=== PATIENT | female | born 1960 | race Two or more races ===

== ENCOUNTER 2019-12-27 13:17 | Outpatient (REF) | payer MEDICAID, SELFPAY ==
[2019-12-30 03:31] LABS: HPV mRNA E6/E7 rflx Not Detected (Not Detected)
== END 2019-12-27 13:18 | disposition home or self-care (01) ==
LOC: HO.LAB 13:17
PROVIDERS: Visit Provider Obstetrics & Gynecology
DX: N95.0 Postmenopausal bleeding (principal)
CPT/HCPCS: 87624; 87625; 88142; 99212

== ENCOUNTER 2020-01-08 13:47 | Outpatient (REF) | payer MEDICAID, SELFPAY ==
--- NOTE | 2020-01-08 13:51 | US_ITS ---
EXAMINATION: PELVIC ULTRASOUND CLINICAL INFORMATION: Postmenopausal bleeding COMPARISON: None TECHNIQUE: Transabdominal and transvaginal pelvic ultrasound was performed. Transvaginal exam was performed for better visualization of the uterus and ovaries. FINDINGS: The uterus is retroverted and measures 9.6 x 4.2 x 4.9 cm in dimension. Uterine echotexture is heterogeneous with multiple hyperechoic areas questionable for calcifications. There is a 1.4 x 1.3 x 1.8 cm hypoechoic lesion in the posterior uterine body suggestive of a fibroid. This abuts the endometrium. Endometrial thickness is normal measuring 0.4 cm. The ovaries are normal-appearing. The right ovary measures 2.3 x 1.8 x 1.3 cm and the left ovary measures 2.8 x 2.1 x 1.1 cm. There is no fluid in the pelvis. US/US transvaginal IMPRESSION: Heterogeneous uterus with small uterine fibroid that abuts the endometrium. The endometrium is normal in thickness. The ovaries are normal.
--- NOTE | 2020-01-08 13:51 | US_ITS ---
EXAMINATION: PELVIC ULTRASOUND CLINICAL INFORMATION: Postmenopausal bleeding COMPARISON: None TECHNIQUE: Transabdominal and transvaginal pelvic ultrasound was performed. Transvaginal exam was performed for better visualization of the uterus and ovaries. FINDINGS: The uterus is retroverted and measures 9.6 x 4.2 x 4.9 cm in dimension. Uterine echotexture is heterogeneous with multiple hyperechoic areas questionable for calcifications. There is a 1.4 x 1.3 x 1.8 cm hypoechoic lesion in the posterior uterine body suggestive of a fibroid. This abuts the endometrium. Endometrial thickness is normal measuring 0.4 cm. The ovaries are normal-appearing. The right ovary measures 2.3 x 1.8 x 1.3 cm and the left ovary measures 2.8 x 2.1 x 1.1 cm. There is no fluid in the pelvis. US/US pelvic complete IMPRESSION: Heterogeneous uterus with small uterine fibroid that abuts the endometrium. The endometrium is normal in thickness. The ovaries are normal.
== END 2020-01-08 13:48 | disposition home or self-care (01) ==
LOC: HO.US 13:47
PROVIDERS: PCP Family Medicine; Visit Provider Obstetrics & Gynecology
DX: N95.0 Postmenopausal bleeding (principal)
CPT/HCPCS: 76830; 76856

== ENCOUNTER 2020-01-10 10:48 | Outpatient (REF) | payer MEDICAID, SELFPAY ==
--- NOTE | 2020-01-10 | MM_ITS ---
EXAMINATION: MM SCREENING DIGITAL BREAST TOMOSYNTHESIS, BILATERAL CLINICAL INFORMATION: Screening. Asymptomatic. The lifetime risk of breast cancer based on the Tyrer-Cuzick Model is 6%. COMPARISON: Mammography: 05/12/2018, 05/11/2017, 05/01/2016 TECHNIQUE: Digital breast tomosynthesis is performed in both the craniocaudal and mediolateral oblique views along with computer-aided detection (CAD). Synthesized 2D images are generated from the tomosynthesis. Additional right MLO view is provided. FINDINGS: There are scattered areas of fibroglandular density (ACR BI-RADS breast composition Category b). There are no significant masses, abnormal calcifications, or other abnormalities. There is no developing density. Fine digital processing artifact present left axilla on MLO view. MM/MM tomosynthesis screening BI IMPRESSION: No mammographic evidence of malignancy. ASSESSMENT: BI-RADS 2: Benign RECOMMENDATION: Routine annual mammography screening. This patient's information was entered into a reminder system with a target due date for their next mammogram.
== END 2020-01-10 10:49 | disposition home or self-care (01) ==
LOC: HO.MAMMO 10:48
PROVIDERS: PCP Family Medicine; Visit Provider Family Medicine
DX: Z12.31 Encounter for screening mammogram for malignant neoplasm of breast (principal)
CPT/HCPCS: 77063; 77067

== ENCOUNTER → 2020-03-13 11:43 | Outpatient (BNVA) | payer MEDICAID, SELFPAY | PROVIDERS: Visit Provider Obstetrics & Gynecology ==

== ENCOUNTER → 2020-03-20 12:00 | Outpatient (BNVA) | payer MEDICAID, SELFPAY | PROVIDERS: PCP Family Medicine; Visit Provider Obstetrics & Gynecology | DX: Z76.89 Persons encountering health services in other specified circumstances (principal) ==

== ENCOUNTER → 2020-03-27 15:24 | Outpatient (BNVA) | payer MEDICAID, SELFPAY | PROVIDERS: Visit Provider Nurse Practitioner ==

== ENCOUNTER 2020-04-11 15:24 | Outpatient (REF) | payer MEDICAID, SELFPAY ==
[2020-04-11 17:27] LABS: CDIFF Ag Negative (Negative); CDiff Toxin Negative (Negative)
[2020-04-11 17:28] LABS: CDIFF Internal ctrl Dots and bkg OK (V)
== END 2020-04-11 15:25 | disposition home or self-care (01) ==
LOC: HO.LNP 15:24
PROVIDERS: Visit Provider Nurse Practitioner
DX: R19.7 Diarrhea, unspecified (principal); R11.2 Nausea with vomiting, unspecified
CPT/HCPCS: 87045; 87046; 87324; 87338; 87449

== ENCOUNTER 2020-04-15 10:39 | Outpatient (REF) | payer MEDICAID, SELFPAY ==
--- NOTE | ~2020-04-15 | US_ITS ---
EXAMINATION: US ABDOMEN COMPLETE CLINICAL INFORMATION: Upper abdominal pain, unspecified. COMPARISON: Renal ultrasound 04/27/2006. TECHNIQUE: Real-time imaging of the abdominal viscera. FINDINGS: PANCREAS: Normal. ABDOMINAL AORTA: Limited visualization of the mid aorta. The visualized aorta, including the well-seen proximal and distal abdominal aorta, is normal in caliber. INFERIOR VENA CAVA: Visualized portions are normal. LIVER: Normal. The liver is normal in size. The liver contour is normal. Parenchymal echogenicity is normal. No focal hepatic lesion. There is no intrahepatic biliary duct dilatation seen. GALLBLADDER: Along the dependent wall of the gallbladder there is a nonmobile 3 mm echogenic focus most consistent with a tiny polyp. Gallbladder wall normal in thickness, 2 mm. No gallbladder wall thickening or pericholecystic fluid. No reported sonographic Nguyen's sign. COMMON BILE DUCT: Normal in caliber measuring 0.5 cm in diameter. RIGHT KIDNEY: Normal. No hydronephrosis. No renal calculi or focal parenchymal lesions. The kidney measures 11.2 cm in maximum dimension. LEFT KIDNEY: Normal. No hydronephrosis. No renal calculi or focal parenchymal lesions. The kidney measures 11.5 cm in maximum dimension. SPLEEN: Normal. The spleen measures 9.7 cm in maximum dimension. FREE FLUID: None. US/US abdomen complete IMPRESSION: 3 mm gallbladder wall polyp. There are differing management algorithms advocated for in the radiology literature for small gallbladder wall polyps of this size. Some suggest annual ultrasound follow-up while others suggest no follow-up is needed. Normal appearance of liver. No biliary ductal dilatation.
[2020-04-15 11:54] LABS: MANUAL DIFF FLAG NO
[2020-04-15 11:59] LABS: Basophils Percent Auto 0.6 % (0-2); Eosinophils Absolute Auto 0.1 X10*3/uL (0.0-0.4); Eosinophils Percent Auto 2.5 % (0-4); Hematocrit 40.4 % (37-47); Hemoglobin 13.2 g/dl (12.0-16.0); Imm Gran Abs Auto 0.01 X10*3/uL (0.00-0.03); Imm Gran Pct Auto 0.2 % (0.0-0.4); Lymphocytes Absolute Auto 1.5 X10*3/uL (1.2-4.9); Lymphocytes Percent Auto 31.4 % (20-40); Mean Corpuscular HGB Conc 32.7 g/dl (31.0-35.0); Mean Corpuscular Hemoglobin 27.9 pg (27.0-33.0); Mean Corpuscular Volume 85.4 fL (80-98); Mean Platelet Volume 9.4 fL (9.4-12.3); Monocytes Absolute Auto 0.3 X10*3/uL (0.1-1.2); Monocytes Percent Auto 6.5 % (2-11); Neutrophils Absolute Auto 2.8 X10*3/uL (2.0-8.3); Neutrophils Percent Auto 58.8 % (45-73); Platelet Count 233 X10*3/uL (160-400); Red Blood Count 4.73 X10*6/uL (4.20-5.50); Red Cell Distribution Width 12.8 % (11.0-16.0); White Blood Count 4.8 X10*3/uL (4.8-10.8)
[2020-04-15 14:00] LABS: Alanine Aminotransferase 12 U/L (0-31); Albumin Level 4.1 g/dL (3.5-5.0); Alkaline Phosphatase 86 U/L (39-117); Anion Gap 11 (12-20); Aspartate Amino Transferase 14 U/L (5-31); Bilirubin Total 0.3 mg/dL (0.0-1.0); Blood Urea Nitrogen 19 mg/dL (9-16); C Reactive Protein 0.48 mg/dL (< or = 0.50); Calcium 9.4 mg/dL (8.4-10.2); Carbon Dioxide 34 mmol/L (22-29); Chloride 100 mmol/L (96-108); Estimated Glomerular Filt Rate > 60; Potassium 4.3 mmol/L (3.3-5.1); Sodium 141 mmol/L (135-145); Total Protein 7.5 g/dL (6.5-8.0)
[2020-04-15 14:30] LABS: Glucose Random 57 mg/dL (60-115)
== END 2020-04-15 10:40 | disposition home or self-care (01) ==
LOC: HO.HMGCX 10:39
PROVIDERS: Visit Provider Nurse Practitioner
DX: R10.10 Upper abdominal pain, unspecified (principal); R11.2 Nausea with vomiting, unspecified; R19.7 Diarrhea, unspecified
CPT/HCPCS: 36415; 76700; 80053; 85025; 86140

== ENCOUNTER → 2020-04-23 09:59 | Outpatient (BNVA) | payer MEDICAID, SELFPAY | PROVIDERS: PCP Family Medicine; Visit Provider Nurse Practitioner Gerontology | DX: E11.65 Type 2 diabetes mellitus with hyperglycemia (principal); E11.649 Type 2 diabetes mellitus with hypoglycemia without coma; Z79.4 Long term (current) use of insulin; I10 Essential (primary) hypertension | CPT/HCPCS: 82947; 99212 ==

== ENCOUNTER → 2020-05-07 09:22 | Outpatient (BNVA) | payer MEDICAID, SELFPAY | PROVIDERS: PCP Family Medicine; Visit Provider Internal Medicine Endocrinology, Diabetes & Metabolism | DX: E11.65 Type 2 diabetes mellitus with hyperglycemia (principal); E11.42 Type 2 diabetes mellitus with diabetic polyneuropathy; E11.649 Type 2 diabetes mellitus with hypoglycemia without coma; E11.3299 Type 2 diabetes mellitus with mild nonproliferative diabetic retinopathy without macular edema, unspecified eye; Z79.4 Long term (current) use of insulin; I10 Essential (primary) hypertension; E78.5 Hyperlipidemia, unspecified; E66.9 Obesity, unspecified | CPT/HCPCS: 82947; 99212 ==

== ENCOUNTER → 2020-06-25 09:38 | Outpatient (BNVA) | payer MEDICAID, SELFPAY | PROVIDERS: PCP Family Medicine; Visit Provider Nurse Practitioner ==

== ENCOUNTER → 2020-07-12 14:48 | Outpatient (BNVA) | payer MEDICAID, SELFPAY | PROVIDERS: Visit Provider Nurse Practitioner ==

== ENCOUNTER → 2020-08-07 11:57 | Outpatient (BNVA) | payer MEDICAID, SELFPAY | PROVIDERS: PCP Family Medicine; Visit Provider Internal Medicine Endocrinology, Diabetes & Metabolism | DX: E11.65 Type 2 diabetes mellitus with hyperglycemia (principal); E11.42 Type 2 diabetes mellitus with diabetic polyneuropathy; E11.649 Type 2 diabetes mellitus with hypoglycemia without coma; E11.3299 Type 2 diabetes mellitus with mild nonproliferative diabetic retinopathy without macular edema, unspecified eye; I10 Essential (primary) hypertension; E66.9 Obesity, unspecified; E78.5 Hyperlipidemia, unspecified; Z79.4 Long term (current) use of insulin | CPT/HCPCS: 82947; 99212 ==

== ENCOUNTER 2020-08-15 09:39 | Day surgery (SDC) | payer MEDICAID, SELFPAY ==
[2020-08-08 13:30] VITALS: BMI 35.3
--- NOTE | 2020-08-14 08:56 | P.CONAN_ITS ---
Documented by User: Geneva Amparo 08/14/20 08:58 HPI - Anesthesia Eval Consult details Narrative: 60yo F for Colonoscopy PMFSH Active Problems Active Problems: All Active Problems (Updated 08/08/20 @ 13:26 by Bev Pineda) Postmenopausal bleeding (Acute) Gastroparesis (Acute) GERD (gastroesophageal reflux disease) (Acute) Irritable bowel syndrome with both constipation and diarrhea (Acute) Diarrhea (Acute) Nausea and vomiting (Acute) Upper abdominal pain (Acute) Gastritis (Acute) Colon cancer screening (Acute) Diabetic neuropathy associated with type 2 diabetes mellitus (Acute) Background diabetic retinopathy associated with type 2 diabetes mellitus (Acute) Dyslipidemia (Acute) Type 2 diabetes mellitus with mild nonproliferative diabetic retinopathy without macular edema, bilateral (Acute) Type 2 diabetes mellitus with hyperglycemia, with long-term current use of insulin (Acute) [facility] current use of insulin (Acute) Essential hypertension (Acute) Obesity with body mass index of 30.0-39.9 (Acute) Hypoglycemia associated with type 2 diabetes mellitus (Acute) Diabetes type 2, uncontrolled (Acute) Past Medical History Medical History (Updated 08/15/20 @ 11:22 by Nidhi Poon) Allergic rhinitis Anemia Asthma Background diabetic retinopathy associated with type 2 diabetes mellitus Constipation COVID-19 vaccine administered Depression Diabetes type 2, uncontrolled Diabetic neuropathy associated with type 2 diabetes mellitus Dyslipidemia Essential hypertension Heart murmur Hemorrhoids HTN (hypertension) Hypoglycemia associated with type 2 diabetes mellitus FCI current use of insulin Menometrorrhagia Obesity Obesity with body mass index of 30.0-39.9 PATRICIA (obstructive sleep apnea) Polypharmacy Type 2 diabetes mellitus with hyperglycemia, with long-term current use of insulin Type 2 diabetes mellitus with mild nonproliferative diabetic retinopathy without macular edema, bilateral Venous insufficiency Family History Family History Father No problems noted. Mother Heart disease HTN (hypertension) Diabetes Pacemaker Depression Family/Other Diabetes Surgical History Surgical History History of bilateral tubal ligation History of esophagogastroduodenoscopy (EGD) Hx of colonoscopy Social History Social History Household Members: None Are you a primary nurse healthcare manager to a significant other at home: No Do you presently have visiting nurse or other home services: No Alcohol intake: never Patient Tobacco Use Status: Never used Tobacco Use of substances other than those prescribed or required for medical reasons: No Have you been hit, kicked, punched, or otherwise hurt by someone within the past year? If so, by whom?: No Are you DNR?: No Advance Directives: No Advance Directives Information Provided: No Advance Directives on File: No Recently lost weight without trying: No Eating poorly because of decreased appetite: No Nutrition Risks: No Nutritional Risk Sexual orientation: Straight/Heterosexual Gender identity: female Meds Allergies Allergy/AdvReac Type Severity Reaction Status Date / Time pioglitazone [From Actos] Allergy Mild EDEMA, Verified 07/12/20 14:48 unknown Home Medications Medication Instructions Recorded Confirmed Last Taken Type furosemide 20 mg tablet 10 mg PO QAM 12/27/19 08/08/20 Unknown History hydrocortisone acetate 25 mg 25 mg UT BEDTIME 12/27/19 08/07/20 Unknown History rectal suppository tramadol 100 mg tablet 100 mg PO DAILY PRN 12/27/19 08/08/20 Unknown History aspirin 81 mg tablet,delayed 81 mg PO QPM tab 04/23/20 08/08/20 Unknown History release buspirone 30 mg tablet 30 mg PO QAM AND QHS tab 04/23/20 08/08/20 Unknown History cilostazol 50 mg tablet 50 mg PO BID tab 04/23/20 08/08/20 Unknown History ferrous sulfate 325 mg (65 mg 325 mg PO QAM tab 04/23/20 08/08/20 Unknown History iron) tablet lisinopril 20 2 tab PO DAILY tab 04/23/20 08/08/20 Unknown History mg-hydrochlorothiazide 12.5 mg tablet lorazepam 0.5 mg tablet See Rx Instructions PO BID PRN 04/23/20 08/08/20 Unknown History metoprolol tartrate 50 mg tablet 50 mg PO BID 04/23/20 08/08/20 Unknown History venlafaxine 150 mg 150 mg PO QAM 04/23/20 08/08/20 Unknown History capsule,extended release 24 hr zolpidem 10 mg tablet 10 mg PO BEDTIME PRN 04/23/20 08/08/20 Unknown History Exam Exam Date and Time: August 14, 2020 0856 Height,Weight and Vital Signs: Height 5 ft Weight 82 kg Pertinent Lab Results Pertinent Lab Results: Laboratory Tests 04/15/20 04/15/20 11:47 11:47 WBC 4.8 Hgb 13.2 Hct 40.4 Plt Count 233 Sodium 141 Potassium 4.3 Chloride 100 Carbon Dioxide 34 H BUN 19 H Creatinine 0.77 Assessment and Plan Assessment Anesthesia Assessment: Chart Reviewed Documented by User: Nidhi Poon 08/15/20 11:24 [facility] Past Medical History Medical History (Updated 08/15/20 @ 11:22 by Nidhi Poon) Allergic rhinitis Anemia Asthma Background diabetic retinopathy associated with type 2 diabetes mellitus Constipation COVID-19 vaccine administered Depression Diabetes type 2, uncontrolled Diabetic neuropathy associated with type 2 diabetes mellitus Dyslipidemia Essential hypertension Heart murmur Hemorrhoids HTN (hypertension) Hypoglycemia associated with type 2 diabetes mellitus 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 Mother Heart disease HTN (hypertension) Diabetes Pacemaker Depression Family/Other Diabetes Family history of problems with anesthesia: Yes (Mother's heart condition worsened by anesthesia) Surgical History Surgical History History of bilateral tubal ligation History of esophagogastroduodenoscopy (EGD) Hx of colonoscopy History of Problems with Anesthesia: No Social History Social History Household Members: None Are you a primary nurse healthcare manager to a significant other at home: No Do you presently have visiting nurse or other home services: No Alcohol intake: never Patient Tobacco Use Status: Never used Tobacco Use of substances other than those prescribed or required for medical reasons: No Have you been hit, kicked, punched, or otherwise hurt by someone within the past year? If so, by whom?: No Are you DNR?: No Advance Directives: No Advance Directives Information Provided: No Advance Directives on File: No Recently lost weight without trying: No Eating poorly because of decreased appetite: No Nutrition Risks: No Nutritional Risk Sexual orientation: Straight/Heterosexual Gender identity: female Meds Allergies Allergy/AdvReac Type Severity Reaction Status Date / Time pioglitazone [From Actos] Allergy Mild EDEMA, Verified 07/12/20 14:48 unknown Home Medications Medication Instructions Recorded Confirmed Last Taken Type furosemide 20 mg tablet 10 mg PO QAM 12/27/19 08/08/20 Unknown History hydrocortisone acetate 25 mg 25 mg UT BEDTIME 12/27/19 08/07/20 Unknown History rectal suppository tramadol 100 mg tablet 100 mg PO DAILY PRN 12/27/19 08/08/20 Unknown History aspirin 81 mg tablet,delayed 81 mg PO QPM tab 04/23/20 08/08/20 Unknown History release buspirone 30 mg tablet 30 mg PO QAM AND QHS tab 04/23/20 08/08/20 Unknown History cilostazol 50 mg tablet 50 mg PO BID tab 04/23/20 08/08/20 Unknown History ferrous sulfate 325 mg (65 mg 325 mg PO QAM tab 04/23/20 08/08/20 Unknown History iron) tablet lisinopril 20 2 tab PO DAILY tab 04/23/20 08/08/20 Unknown History mg-hydrochlorothiazide 12.5 mg tablet lorazepam 0.5 mg tablet See Rx Instructions PO BID PRN 04/23/20 08/08/20 Unknown History metoprolol tartrate 50 mg tablet 50 mg PO BID 04/23/20 08/08/20 Unknown History venlafaxine 150 mg 150 mg PO QAM 04/23/20 08/08/20 Unknown History capsule,extended release 24 hr zolpidem 10 mg tablet 10 mg PO BEDTIME PRN 04/23/20 08/08/20 Unknown History Exam Height,Weight and Vital Signs: Vital Signs Temp Pulse Resp BP Pulse Ox 08/15/20 10:08 96.8 F 74 16 143/69 H 97 Pertinent Lab Results Pertinent Lab Results: Lab Results 08/15/20 Range/Units 09:48 POC Glucose 93 (60-115) mg/dL Airway Mallampati Class: II TM Dist: >3cm Neck ROM: Full Partial: Upper and Lower Heart: RRR Lungs: CTAB Assessment and Plan Assessment Anesthesia Assessment: Anesthesia Plan Discussed and Chart Reviewed Final Anesthetic Review NPO: Yes ASA Class: III Final Preanesthetic Review: No Changes in Pt Med Stat, Meds/Allgs Chart Reviewed, Consent Obtained/Reviewed and Anes Risks/Benef Reviewed Patient Risk: Intermediate Procedure Risk: Low Assessment/Block/Sedation in SS: Assess/Block/Sedation-SS Anesthetic Plan Anesthetic Plan: MAC: Disposition: Standard PACU
[2020-08-15 10:08] VITALS: BP 143/69; PULSE 74; RESP 16; TEMP 36; O2SAT 97
[2020-08-15 10:11] LABS: Glucose, Whole Blood 93 mg/dL (60-115)
[2020-08-15] MEDS: Lactated Ringers 1,000 ML 100 ML IVCONT (10:19)
--- NOTE | 2020-08-15 10:57 | MHC.SHP ---
Pre-Procedural Eval Section A Date of Service: 08/15/20 Section B Chief Complaint: Screening Relevant Family History (Specify if Yes): No Relevant Social History: None Present Medications: see Short Stay Collaborative assessment Medical History: Significant History (Allergic rhinitis Anemia Asthma Background diabetic retinopathy associated with type 2 diabetes mellitus Constipation COVID-19 vaccine administered Depression Diabetes type 2, uncontrolled Diabetic neuropathy associated with type 2 diabetes mellitus Dyslipidemia Essential hypertension Heart murmur H) History of Previous Operations: Relevant previous surgery/procedure and date(s) (History of bilateral tubal ligation History of esophagogastroduodenoscopy (EGD) Hx of colonoscopy) Allergies: Allergies Allergy/AdvReac Type Severity Reaction Status Date / Time pioglitazone [From Actos] Allergy Mild EDEMA, Verified 07/12/20 14:48 unknown Review of Systems Sugical H&P ROS: Negative: Constitution, Cardiovascular, Respiratory, Neurological, Psychiatric, Hem-Onc, Allergic/Immunologic, Gastrointestinal, Genitourinary, Musculoskeletal, Integumentary, Endocrine and Eyes/Ears/Nose/Throat Exam Surgical H&P Exam: Normal: HEENT, Normal: Heart, Normal: Lungs, Normal: Extremities, Normal: Abdomen, Normal: Skin and Normal: Neurological Plan Diagnosis/Plan: Unchanged I have reviewed the history and physical and performed a pertinent physical examination on my patient. No changes have occurred unless specified.
--- NOTE | 2020-08-15 11:41 | P.BOP_ITS ---
Brief Operative Note Date of Service: 08/15/20 Pre-op diagnosis: colon screen Post-op diagnosis: same Procedure: see op note Surgeon: Yamile Lim MD Anesthesia: MAC Was an Director Of [employer] used for this Procedure?: No Estimated blood loss (mL): 0 Condition: stable Disposition: PACU
--- NOTE | 2020-08-15 11:41 | W.PM.OPN ---
Operative Note Operative Note Date of Service: 08/15/20 Narrative: Operative Information Procedure Description: Colonoscopy COLONOSCOPY Instrument: Olympus variable stiffness pediatric scope 190L Colonoscopy Monitoring: Vital signs and clinical assessment, continuous EKG monitoring, Pulse oximetry, Carbon Dioxide monitoring and blood pressure monitoring were done throughout the procedure. Colon withdrawal time was 10 minutes. Procedure: The patient was placed in the left lateral decubitis position and pre-procedure medications were administered. After a digital rectal examination of the ano-rectum, the video colonoscope was inserted into the rectum and advanced through the colon to the cecum/TI. The colonoscope was slowly withdrawn in a retrograde panoramic fashion and the colon mucosa was carefully examined including a retroflexed view of the rectum. Findings and interventions are described below. Procedure Difficulty:moderate Findings: Terminal Ileum-not deeply intubated but superficially viewed and normal Cecum:normal Ascending Colon: normal Transverse Colon -normal Descending Colon:normal Sigmoid Colon: normal Rectum: Retroflexion with small internal hemorrhoids, grade 1 Anorectum - normal Colon preparation: Jeannette Bowel Preparation Scale Right colon; 2 Transverse colon: 2 Left colon; 1 (0 = Unprepared colon segment with mucosa not seen due to solid stool that cannot be cleared. 1 = Portion of mucosa of the colon segment seen, but other areas of the colon segment not well seen due to staining, residual stool and/or opaque liquid. 2 = Minor amount of residual staining, small fragments of stool and/or opaque liquid, but mucosa of colon segment seen well. 3 = Entire mucosa of colon segment seen well with no residual staining, small fragments of stool or opaque liquid) Impression and Post Procedure Diagnosis: internal hemorrhoids Plan: High fiber diet leaflet Avoid straining at stool, epsom salts and sitz bath, anusol supps or cream as needed Repeat Colonoscopy in 5 years or earlier if clinically indicated, review prep details for next time Above findings were reviewed with the patient and relevant handouts were provided if indicated.
[2020-08-15 11:45] VITALS: BP 82/44; PULSE 61; RESP 16; TEMP 36.8; O2SAT 98
[2020-08-15 12:03] VITALS: BP 92/54; PULSE 66; RESP 13; TEMP 36.8; O2SAT 97
[2020-08-15 12:11] VITALS: BP 105/58; PULSE 63; RESP 12; TEMP 36.8; O2SAT 97
== END 2020-08-15 13:12 | disposition home or self-care (01) ==
PROVIDERS: PCP Family Medicine; Visit Provider Internal Medicine Gastroenterology
PROC: 0DJD8ZZ Inspection of Lower Intestinal Tract, Via Natural or Artificial Opening Endoscopic (ICD-10-PCS; CPT 45378; principal; 2020-08-15 10:50)
DX: Z12.11 Encounter for screening for malignant neoplasm of colon (principal); K64.0 First degree hemorrhoids; K21.9 Gastro-esophageal reflux disease without esophagitis; E11.40 Type 2 diabetes mellitus with diabetic neuropathy, unspecified; E11.3293 Type 2 diabetes mellitus with mild nonproliferative diabetic retinopathy without macular edema, bilateral; E11.65 Type 2 diabetes mellitus with hyperglycemia; J45.909 Unspecified asthma, uncomplicated; I10 Essential (primary) hypertension; G47.33 Obstructive sleep apnea (adult) (pediatric); D64.9 Anemia, unspecified; Z79.4 Long term (current) use of insulin; Z79.899 Other long term (current) drug therapy
CPT/HCPCS: 45378; 82947; J2765

== ENCOUNTER → 2020-09-12 10:20 | Outpatient (BNVA) | payer MEDICAID, SELFPAY | PROVIDERS: PCP Family Medicine; Visit Provider Nurse Practitioner ==

== ENCOUNTER 2021-01-20 10:46 | Outpatient (REF) | payer MEDICAID, SELFPAY ==
--- NOTE | ~2021-01-20 | MM_ITS ---
EXAMINATION: MM SCREENING DIGITAL BREAST TOMOSYNTHESIS, BILATERAL CLINICAL INFORMATION: Screening. Asymptomatic. The lifetime risk of breast cancer based on the Tyrer-Cuzick Model is 5%. COMPARISON: Mammography: 01/10/2020, 05/12/2018, 05/11/2017 TECHNIQUE: Digital breast tomosynthesis is performed in both the craniocaudal and mediolateral oblique views along with computer-aided detection (CAD). Synthesized 2D images are generated from the tomosynthesis. Additional right exaggerated CC view obtained. FINDINGS: There are scattered areas of fibroglandular density (ACR BI-RADS breast composition Category b). There are no significant masses, abnormal calcifications, or other abnormalities. Parenchymal pattern similar to prior studies. MM/MM tomosynthesis screening BI IMPRESSION: No mammographic evidence of malignancy. ASSESSMENT: BI-RADS 1: Negative RECOMMENDATION: Routine annual mammography screening. This patient's information was entered into a reminder system with a target due date for their next mammogram.
== END 2021-01-20 10:47 | disposition home or self-care (01) ==
LOC: HO.MAMMO 10:46
PROVIDERS: PCP Family Medicine; Visit Provider Family Medicine
DX: Z12.31 Encounter for screening mammogram for malignant neoplasm of breast (principal)
CPT/HCPCS: 77063; 77067

== ENCOUNTER → 2021-06-06 12:54 | Outpatient (BNVA) | payer MEDICAID, SELFPAY | PROVIDERS: PCP Family Medicine; Visit Provider Internal Medicine Endocrinology, Diabetes & Metabolism | DX: E11.65 Type 2 diabetes mellitus with hyperglycemia (principal); E11.40 Type 2 diabetes mellitus with diabetic neuropathy, unspecified; E11.319 Type 2 diabetes mellitus with unspecified diabetic retinopathy without macular edema; E11.21 Type 2 diabetes mellitus with diabetic nephropathy; Z79.4 Long term (current) use of insulin | CPT/HCPCS: 82947; 83036; 99212 ==

== ENCOUNTER 2022-01-26 11:34 | Outpatient (REF) | payer MEDICAID, SELFPAY ==
--- NOTE | ~2022-01-26 | MM_ITS ---
EXAMINATION: MM SCREENING DIGITAL BREAST TOMOSYNTHESIS, BILATERAL CLINICAL INFORMATION: Screening. Asymptomatic. The lifetime risk of breast cancer based on the Tyrer-Cuzick Model is 5%. COMPARISON: Mammography: 01/20/2021, 01/10/2020, 05/12/2018 TECHNIQUE: Digital breast tomosynthesis is performed in both the craniocaudal and mediolateral oblique views along with computer-aided detection (CAD). Synthesized 2D images are generated from the tomosynthesis. FINDINGS: There are scattered areas of fibroglandular density (ACR BI-RADS breast composition Category b). There are no significant masses, abnormal calcifications, or other abnormalities. Parenchymal pattern is similar to prior studies. There is no developing density or architectural abnormality. The axilla and skin contours are unremarkable. No significant changes. MM/MM tomosynthesis screening BI IMPRESSION: No mammographic evidence of malignancy. ASSESSMENT: BI-RADS 1: Negative RECOMMENDATION: Routine annual mammography screening. This patient's information was entered into a reminder system with a target due date for their next mammogram.
== END 2022-01-26 11:35 | disposition home or self-care (01) ==
LOC: HO.MAMMO 11:34
PROVIDERS: PCP Family Medicine; Visit Provider Family Medicine
DX: Z12.31 Encounter for screening mammogram for malignant neoplasm of breast (principal)
CPT/HCPCS: 77063; 77067

== ENCOUNTER → 2022-02-13 10:15 | Outpatient (BNVA) | payer MEDICAID, SELFPAY | PROVIDERS: PCP Family Medicine; Visit Provider Internal Medicine Endocrinology, Diabetes & Metabolism | DX: E11.65 Type 2 diabetes mellitus with hyperglycemia (principal); E11.649 Type 2 diabetes mellitus with hypoglycemia without coma; E11.42 Type 2 diabetes mellitus with diabetic polyneuropathy; E11.21 Type 2 diabetes mellitus with diabetic nephropathy; E11.3293 Type 2 diabetes mellitus with mild nonproliferative diabetic retinopathy without macular edema, bilateral; Z79.4 Long term (current) use of insulin | CPT/HCPCS: 82947; 83036; 99212 ==

== ENCOUNTER → 2022-03-19 10:27 | Outpatient (BNVA) | payer MEDICAID, SELFPAY | PROVIDERS: PCP Family Medicine; Visit Provider Nurse Practitioner | DX: K21.9 Gastro-esophageal reflux disease without esophagitis (principal); K58.2 Mixed irritable bowel syndrome; K31.84 Gastroparesis | CPT/HCPCS: 99212 ==

== ENCOUNTER → 2022-06-11 09:52 | Outpatient (BNVA) | payer MEDICAID, SELFPAY | PROVIDERS: PCP Family Medicine; Visit Provider Nurse Practitioner | DX: K31.84 Gastroparesis (principal); K21.9 Gastro-esophageal reflux disease without esophagitis; K58.2 Mixed irritable bowel syndrome | CPT/HCPCS: 99212 ==

== ENCOUNTER → 2022-07-17 11:12 | Outpatient (BNVA) | payer MEDICAID, SELFPAY | PROVIDERS: PCP Family Medicine; Visit Provider Nurse Practitioner | DX: K31.84 Gastroparesis (principal); K21.9 Gastro-esophageal reflux disease without esophagitis; K58.2 Mixed irritable bowel syndrome; K29.70 Gastritis, unspecified, without bleeding | CPT/HCPCS: 99212 ==

== ENCOUNTER → 2022-07-28 09:10 | Outpatient (BNVA) | payer MEDICAID, SELFPAY | PROVIDERS: PCP Family Medicine; Visit Provider Registered Nurse Diabetes Educator | DX: E11.42 Type 2 diabetes mellitus with diabetic polyneuropathy (principal) | CPT/HCPCS: 99211 ==

== ENCOUNTER → 2022-08-12 13:41 | Outpatient (BNVA) | payer MEDICAID, SELFPAY | PROVIDERS: PCP Family Medicine; Visit Provider Registered Nurse Diabetes Educator | DX: E11.42 Type 2 diabetes mellitus with diabetic polyneuropathy (principal) | CPT/HCPCS: 99211 ==

== ENCOUNTER 2022-08-28 12:03 | Outpatient (AMB) | payer MEDICAID, SELFPAY ==
--- NOTE | 2022-08-28 12:13 | MHC.OFFVIS ---
Intake Vital Signs 08/28/22 12:18 Height 5 ft 1 in Weight 145 lb BMI 27.4 BP 110/55 L Blood Pressure Location Lt brachial Position Sitting Pulse 67 Intake Visit Reasons: 4 week follow up Intake Note: Patient 4 weeks follow up Patient cc: Nauseas, Vomiting, acid reflex and some dysphagia. 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 HER CIC and epi pain is better, but her vomiting is worse. The vomiting will be an hour or two after eating. But it is worse during the day and some what better at night. She seems to be vomiting all the food I ate the night before, ? and I question if she is taking the qhs reglan dose. I write out all instructions in [place] and print 2 copies for her in her family, and she will take 1 10mg reglan tid and 2 qhs. Her son is with her and tries to help, she has a dtr who lives with her but is not so helpful. She is also having worsening and severe GERD that is not well controlled on her omeprazole.? I will change her to pantoprazole. She was given senna to help move her bowels it is kind of unclear if she is taking it or not but she seems to feel that this is not a problem currently. ROV 4 weeks. .. (2) GERD (gastroesophageal reflux disease): ?Code(s): K21.9 - Gastro-esophageal reflux disease without esophagitis (3) Irritable bowel syndrome with both constipation and diarrhea: ?Code(s): K58.2 - Mixed irritable bowel syndrome (4) Gastritis: ?Code(s): K29.70 - Gastritis, unspecified, without bleeding ? ? ? Medications: New pantoprazole (Prot yenny) 40 mg? PO BID 30 d ays 60 tabs 6RF K21.9 - Gastro-eso phageal reflux dis ease without esoph agitis, K29.70 - G astritis, unspecif ied, without bleed ing ? Discontinued omeprazole ?? Disc ontinued Reason:? Doctor's Order 40 mg? PO BID 30 c aps 3RF ?Patient Instructions: Jaimee Mercere olvera metoclopramida de la siguiente manera: -1 tableta a la hora del desayuno -1 tableta a la hora del almuerzo -1 tableta en la iliana -2 comprimidos a la hora de acostarse Please stop omeprazole and start pantoprazole twice a day. . UPPER GI WITH SMALL-BOWEL FOLLOW-THROUGH Not yet scheduled TODAY'S VISIT UKRAINIAN #dtr translates per pt request She did not get the small bowel study scheduled yet, so we will cancel it. She is now taking the reglan as directed, and this has resolved her abd painand N/V. She continues on her pantoprazole in her senna as well. She is also moving he bowels well. ROV 3 mos. 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 Mother Heart disease HTN (hypertension) Diabetes Pacemaker Depression Family/Other Diabetes Social History Household Members: None Are you a primary healthcare management consultant to a significant other at home: No Do you presently have visiting nurse or other home services: No Alcohol intake: never Patient Tobacco Use Status: Never used Tobacco Sexual orientation: Straight/Heterosexual Gender identity: Female Review of Systems Const Denies fatigue, Denies fever(s), Denies night sweats, Denies poor appetite and Denies weight loss Eyes Details: glasses Reports requires corrective lenses ENT Reports Normal hearing present, Denies dental pain, Denies dysphagia, Denies hearing loss, Denies mouth pain, Denies odynophagia, Denies throat swelling, Denies tongue swelling and Reports other (Dentition adequate) Card Reports no additional complaints Resp Reports no additional complaints GI Denies abdominal pain, Denies melena, Denies bloating, Denies hematochezia, Reports constipation, Denies GI cramping, Denies dysphagia, Denies excessive flatus, Reports early satiety, Reports heartburn, Denies diarrhea, Denies nausea, Denies odynophagia, Denies vomiting and Denies hematemesis Skin/Breast Denies pruritus, Denies lesions, Denies rash and Denies jaundice Neuro Reports Normal hearing present and Denies Abnormal speech present Endo Denies fatigue Aller/Immun Denies throat swelling and Denies tongue swelling Physical Exam Vital Signs: Last Vital Signs Pulse 67 08/28/22 12:18 BP 110/55 L 08/28/22 12:18 BMI result Body Mass Index 27.4 Const General: cooperative, no acute distress, well developed and well groomed Nutritional Appearance: average body habitus and well nourished Orientation/consciousness: oriented to person, oriented to place and oriented to time Limitations: language barrier HEENT Head: Yes normocephalic and Yes atraumatic Eyes General: appearance normal, both eyes and all related structures Pupils: Equal, round and reactive pupils present Neck Neck: Yes normal visual inspection and Yes no lymphadenopathy Thyroid: Thyroid normal Resp Effort & Inspection: normal respiratory effort and able to speak in complete sentences Auscultation: clear to auscultation bilaterally Cardio Rate: regular rate Rhythm: regular rhythm Heart sounds: Normal, physiologic split S2 sound present Peripheral pulses: radial pulses present and posterior tibial pulses present GI Inspection: No distended and No Abdominal panniculus present Palpation (GI): Soft to palpation, nontender, no guarding, not rigid and No hepatosplenomegaly present Percussion: Yes normal to percussion Auscultation: normal bowel sounds Rectal Exam - Female: deferred Skin General skin exam: no rashes or lesions noted, turgor normal, skin not dry, no jaundice, No spider nevi and no striae Rashes: no rashes Nails: normal Neuro General: oriented to person, oriented to place and oriented to time Cranial nerves: Yes Equal, round and reactive pupils present and Yes Normal hearing present Speech: No Abnormal speech present Extrem General: Yes normal to inspection, No clubbing, No cyanosis and No edema Psych Appearance: grossly normal and well kempt Mental Status: mental status grossly normal Speech and movement: Normal speech and movement present Affect: normal affect Attitude: cooperative Thought process: Normal thought process present and not confabulating Thought content: Normal thought content present Insight: Limited insight present (Psych) Judgement: Limited judgement present (Psych) Assessment & Plan Assessment & Plan (1) Gastroparesis: Code(s): K31.84 - Gastroparesis Plan: UKRAINIAN #dtr translates per pt request She did not get the small bowel study scheduled yet, so we will cancel it. She is now taking the reglan as directed, and this has resolved her abd painand N/V. She continues on her pantoprazole in her senna as well. She is also moving he bowels well. ROV 3 mos. (2) GERD (gastroesophageal reflux disease): Code(s): K21.9 - Gastro-esophageal reflux disease without esophagitis (3) Irritable bowel syndrome with both constipation and diarrhea: Code(s): K58.2 - Mixed irritable bowel syndrome Coding Level of Care Code Est Pt Level 3 (13751) Diagnoses Gastroparesis K31.84 GERD (gastroesophageal reflux disease) K21.9 Irritable bowel syndrome with both constipation and diarrhea K58.2
[2022-08-28 12:18] VITALS: BP 110/55; PULSE 67; BMI 27.4
== END 2022-08-28 12:30 | disposition home or self-care (01) ==
PROVIDERS: PCP Family Medicine; Visit Provider Nurse Practitioner
DX: K31.84 Gastroparesis (principal); K21.9 Gastro-esophageal reflux disease without esophagitis; K58.2 Mixed irritable bowel syndrome
CPT/HCPCS: 99213

== ENCOUNTER → 2022-08-28 12:03 | Outpatient (BNVA) | payer MEDICAID, SELFPAY | PROVIDERS: PCP Family Medicine; Visit Provider Nurse Practitioner | DX: K29.70 Gastritis, unspecified, without bleeding (principal); K31.84 Gastroparesis; K21.9 Gastro-esophageal reflux disease without esophagitis; K58.2 Mixed irritable bowel syndrome | CPT/HCPCS: 99213 ==

== ENCOUNTER 2022-09-15 09:28 | Outpatient (REF) | payer MEDICAID, SELFPAY ==
[2022-09-15 12:03] LABS: Estimated Average Glucose 174 mg/dL; Hemoglobin A1c % 7.7 %
== END 2022-09-15 09:29 | disposition home or self-care (01) ==
LOC: HO.HHCL 09:28
PROVIDERS: Visit Provider Internal Medicine Endocrinology, Diabetes & Metabolism
DX: E11.65 Type 2 diabetes mellitus with hyperglycemia (principal)
CPT/HCPCS: 36415; 83036

== ENCOUNTER 2022-10-02 15:00 | Outpatient (AMB) | payer MEDICAID, SELFPAY ==
--- NOTE | 2022-10-02 15:35 | MHC.AMDMED ---
Intake Intake Visit Reasons: DM It Systems Administrator Required: Yes It Systems Administrator Language: Afghan Accompanied by: Daughter Allergies pioglitazone [From Actos] Allergy (Mild, Verified 08/28/22 12:13) EDEMA, unknown HPI Comprehensive Diabetes Asmnt Most Recent Diabetes Results: No Data to Display [facility] Medical History Allergic rhinitis Anemia Asthma Background diabetic retinopathy associated with type 2 diabetes mellitus Constipation COVID-19 vaccine administered Depression Diabetes type 2, uncontrolled Diabetic neuropathy associated with type 2 diabetes mellitus Dyslipidemia Essential hypertension Heart murmur Hemorrhoids HTN (hypertension) Hypoglycemia associated with type 2 diabetes mellitus 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 Mother Heart disease HTN (hypertension) Diabetes Pacemaker Depression Family/Other Diabetes Social History Household Members: None Are you a primary health care facility administrator to a significant other at home: No Do you presently have visiting nurse or other home services: No Alcohol intake: never Patient Tobacco Use Status: Never used Tobacco Sexual orientation: Straight/Heterosexual Gender identity: Female Assessment & Plan Assessment & Plan (1) Background diabetic retinopathy associated with type 2 diabetes mellitus: Code(s): E11.3299 - Type 2 diabetes mellitus with mild nonproliferative diabetic retinopathy without macular edema, unspecified eye Plan: Learning objectives: The patient was provided with verbal and written education on the following topics as outlined below. Assess patient education level/literacy/barriers Patient questions/concerns The patient met all learning objectives and was able to verbalize understanding and provide teach back of education topics discussed . The patient was provided with the opportunity to ask questions and all questions were answered. Patient is interested in obtaining Dexcom G7, however has not been seen by Dr. Grey since January 2022. And does not have scheduled appointment till December 2022. Message sent to front loader residential driver to see if we can move appointment up in order to get paperwork done for G7 which include note from provider. Patient is currently testing glucose with meter Patient tests 3-4 times daily Fasting glucose range from 187 to 223 mg/dL Pre lunch 76-125 mg/dL Pre supper 84-264 mg/dL Topics covered in today?s session included: Medications (If applicable) ? Name of medication? Dosing/administration instructions? Mechanism of action? Potential side effects? Potential adverse reaction and appropriate treatment? Review onset, peak, duration Assess for concerns re: insurance coverage, cost, barriers to compliance Insulin/Injectables (If applicable) ? Storage/care of insulin? Injection sites? Site rotation? Onset, peak, duration ? Drawing up insulin? Injecting insulin/other injectables? Sharps disposal Continuous blood glucose monitoring (if applicable) Hypoglycemia and Hyperglycemia ? Signs and symptoms? Causes? Treatment? Preventing hypoglycemia? When to seek medical attention ?Blood glucose targets and how you feel when your blood glucose is in and out of your target ranges. ?Monitoring and knowing your A1C. ?What can make blood glucose go up and down and preventing high and low blood glucose. ?Review of blood sugar targets in expected goal range and outside of expected goal range. ?Problem solving and preventing hyper/hypoglycemia. ?Sick day management of diabetes. ?Using blood sugar results in decision making process in managing diabetes. ?Patient was receptive to information provided and participated in the discussion. Asked?appropriate questions and demonstrated good understanding of the topics discussed.? ? Educational Materials: The patient was provided with the following written educational materials: Target Goal handout Patient Response to instructions: Comprehension of Instructions: Fair Readiness to make changes:? Pre contemplation How confident they feel about making changes: Fair Patient Instructions: Patient will follow-up with telehealth nurse educator in 1 month Coding Level of Care Code Est Pt Level 1 (37848) Diagnoses Background diabetic retinopathy associated with type 2 diabetes mellitus E11.3299
== END 2022-10-02 16:08 | disposition home or self-care (01) ==
PROVIDERS: PCP Family Medicine; Visit Provider Registered Nurse Diabetes Educator
DX: E11.3299 Type 2 diabetes mellitus with mild nonproliferative diabetic retinopathy without macular edema, unspecified eye (principal)

== ENCOUNTER → 2022-10-02 15:00 | Outpatient (BNVA) | payer MEDICAID, SELFPAY | PROVIDERS: PCP Family Medicine; Visit Provider Registered Nurse Diabetes Educator | DX: E11.65 Type 2 diabetes mellitus with hyperglycemia (principal); E11.649 Type 2 diabetes mellitus with hypoglycemia without coma; E11.40 Type 2 diabetes mellitus with diabetic neuropathy, unspecified; E11.3293 Type 2 diabetes mellitus with mild nonproliferative diabetic retinopathy without macular edema, bilateral; Z79.4 Long term (current) use of insulin | CPT/HCPCS: 99211 ==

== ENCOUNTER 2022-10-07 11:16 | Outpatient (REF) | payer MEDICAID, SELFPAY ==
[2022-10-07 13:39] LABS: Cholesterol 114 mg/dL; HDL Cholesterol 44 mg/dL; LDL Cholesterol Calculated 54 mg/dl; Triglycerides 82 mg/dL
[2022-10-07 13:47] LABS: Alanine Aminotransferase 19 U/L (0-31); Albumin Level 4.1 g/dL (3.5-5.0); Alkaline Phosphatase 68 U/L (39-117); Anion Gap 12 (12-20); Aspartate Amino Transferase 13 U/L (5-31); Bilirubin Total 0.4 mg/dL (0.0-1.0); Blood Urea Nitrogen 17 mg/dL (9-16); Calcium 9.9 mg/dL (8.4-10.2); Carbon Dioxide 32 mmol/L (22-29); Chloride 100 mmol/L (96-108); Estimated Glomerular Filt Rate > 60; Glucose Random 222 mg/dL (60-115); Potassium 3.7 mmol/L (3.3-5.1); Sodium 140 mmol/L (135-145); Total Protein 7.5 g/dL (6.5-8.0)
[2022-10-07 14:04] LABS: TSH reflex Free T4 1.89 uIU/mL (0.32-4.0)
[2022-10-07 14:08] LABS: Vitamin B12 501 pg/mL (200-900)
[2022-10-07 14:21] LABS: Reflex LDLD? No
[2022-10-07 15:00] LABS: Creatinine Urine 17.99 mg/dL; Microalbumin Urine < 5.0 mg/L
== END 2022-10-07 11:17 | disposition home or self-care (01) ==
LOC: HO.HHCL 11:16
PROVIDERS: Visit Provider Family Medicine
DX: E11.65 Type 2 diabetes mellitus with hyperglycemia (principal); Z79.4 Long term (current) use of insulin
CPT/HCPCS: 36415; 80053; 80061; 82043; 82607; 82746; 84443

== ENCOUNTER 2022-10-16 14:54 | Outpatient (AMB) | payer MEDICAID, SELFPAY ==
--- NOTE | 2022-10-16 15:00 | MHC.OFFVIS ---
Intake Vital Signs 10/16/22 15:01 Height 5 ft 1 in Weight 145 lb 15.136 oz BMI 27.6 BP 114/72 Blood Pressure Location Lt brachial Position Sitting Pulse 58 Pulse Source Pulse Oximeter Intake Visit Reasons: DM Intake Note: Patient presents today to follow up on Type Diabetes Mellitus. Patient receives DME supplies through: Last Diabetic Eye exam: 12/2021 Last Podiatry Visit: 08/2022 Random Glucose: 228 mg/dl HgA1C:7.7% 09/15/22 Culinary Specialist Required: Yes Culinary Specialist Language: Brewery Technician Name: [facility] Medical staff Information Interpreted: non-clinical & clinical Accompanied by: Daughter Allergies pioglitazone [From Actos] Allergy (Mild, Verified 10/16/22 15:07) EDEMA, unknown HPI HPI Comments History of Present Illness Details 62 -year-old female today for fup visit, for diabetes management . Dexcom download shows she is using the sensor 86% of the time. Average glucose is 197. Standard deviation is 80. 45% range with 27% hyperglycemia 26% very hyperglycemic and 2% hypoglycemia. Pattern shows declining blood sugars overnight with hypoglycemia primarily occurring around noon She is on Tresiba 75 units in the morning, Humalog 15 units before each meal Ozempic 2 mg weekly not taking for a mo ,metformin XR 1000 mg twice a day, jardiance 25 mg daily. She admits that sometimes she forgets to use the bolus before the meals. She had self increase the insulin doses . She does have hypoglycemia 2 X wk - happens when pt doesn't eat She has past medical history of depression, osteoarthritis, hyperlipidemia, obesity, hypertension. She has diabetes mellitus type 2 for 30 years. She has neuropathy, diabetic retinopathy, diabetic nephropathy , no macrovascular disease. she last saw ophthalmology in 12/2021 She has nocturia 4 times + polydipsia, polyuria, blurred vision. She has numbness, tingling. Laboratory Tests 07/26/19 08/01/19 08/01/19 09:58 11:00 11:00 Hgb Hct Sodium Potassium BUN Creatinine Glucose (Clinic) Random Glucose Hgb A1c Fingerstic k 7.4 Hgb A1c (Clinic) Calcium AST ALT Albumin Triglycerides 96 Cholesterol 130 LDL Cholesterol Di rect LDL Cholesterol, C alc 69 HDL Cholesterol 42 D Ur Random Microalb umin < 5.0 Microalb/Creat Rat io TNP 0604/15/20 04/15/20 11:00 11:47 11:47 Hgb 13.2 Hct 40.4 Sodium 141 Potassium 4.3 BUN 19 H Creatinine 0.77 Glucose (Clinic) Random Glucose 57 L* Hgb A1c Fingerstic k Hgb A1c (Clinic) Calcium 9.4 AST 14 ALT 12 Albumin 4.1 Triglycerides Cholesterol LDL Cholesterol Di rect 61 LDL Cholesterol, C alc HDL Cholesterol Ur Random Microalb umin Microalb/Creat Rat io 04/23/20 04/23/20 10:12 10:23 Hgb Hct Sodium Potassium BUN Creatinine Glucose (Clinic) 269 H Random Glucose Hgb A1c Fingerstic k Hgb A1c (Clinic) 8.2 H Calcium AST ALT Albumin Triglycerides Cholesterol LDL Cholesterol Di rect LDL Cholesterol, C alc HDL Cholesterol Ur Random Microalb umin Microalb/Creat Rat io [facility] Medical History Allergic rhinitis Anemia Asthma Background diabetic retinopathy associated with type 2 diabetes mellitus Constipation COVID-19 vaccine administered Depression Diabetes type 2, uncontrolled Diabetic neuropathy associated with type 2 diabetes mellitus Dyslipidemia Essential hypertension Heart murmur Hemorrhoids HTN (hypertension) Hypoglycemia associated with type 2 diabetes mellitus 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 Mother Heart disease HTN (hypertension) Diabetes Pacemaker Depression Family/Other Diabetes Social History Household Members: None Are you a primary animal care giver to a significant other at home: No Do you presently have visiting nurse or other home services: No Alcohol intake: never Patient Tobacco Use Status: Never used Tobacco Sexual orientation: Straight/Heterosexual Gender identity: Female Physical Exam Vital Signs: Last Vital Signs Pulse 58 10/16/22 15:01 BP 114/72 10/16/22 15:01 BMI result Body Mass Index 27.6 Absence of Cushingoid features. Absence of acromegalic features. Neck exam reveals nl size thyroid about 15 gms. No thyroid nodules palpable. No carotid bruits present. Lungs CTA. Heart S1 S2, Reg R/R. No M/R/ G. Skin exam reveals absence of vitiligo or acanthosis nigricans. Abdominal exam reveals Soft NT/ND with NA BS. No organomegaly present. Neck Other: . Extrem Other: Visual exam of foot performed. No ulcerations or open lesions. No onchomycosis, no callouses.Pulses 2 + distally Sensation intact to monofilament exam. 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 There is also sporadic hypoglycemia during the day. There is significant psychosocial issues interfering with good glycemic control including noncompliance with insulin and meds as well as sporadic meal intake The plan is to decrease the Humalog at breakfast to 12 units and restart Ozempic 2 mg q.week. Patient was told to follow-up with the dial screw assembler Medications: Refilled semaglutide (Ozempic) 2 mg (0.75 mL) subcut QWEEK 3 mL 4RF Coding Level of Care Code Est Pt Level 4 (51632) Diagnoses Type 2 diabetes mellitus with hyperglycemia, with long-term current use of insulin E11.65; Z79.4
[2022-10-16 15:01] VITALS: BP 114/72; PULSE 58; BMI 27.6
[2022-10-16 15:18] LABS: Glucose, Whole Blood 228 mg/dL (60-115)
== END 2022-10-16 15:39 | disposition home or self-care (01) ==
PROVIDERS: PCP Family Medicine; Visit Provider Internal Medicine Endocrinology, Diabetes & Metabolism
DX: E11.65 Type 2 diabetes mellitus with hyperglycemia (principal); Z79.4 Long term (current) use of insulin
CPT/HCPCS: 99214

== ENCOUNTER → 2022-10-16 14:54 | Outpatient (BNVA) | payer MEDICAID, SELFPAY | PROVIDERS: PCP Family Medicine; Visit Provider Internal Medicine Endocrinology, Diabetes & Metabolism | DX: E11.65 Type 2 diabetes mellitus with hyperglycemia (principal); E11.649 Type 2 diabetes mellitus with hypoglycemia without coma; E11.40 Type 2 diabetes mellitus with diabetic neuropathy, unspecified; E11.21 Type 2 diabetes mellitus with diabetic nephropathy; E11.3293 Type 2 diabetes mellitus with mild nonproliferative diabetic retinopathy without macular edema, bilateral; Z79.4 Long term (current) use of insulin; Z79.85 Long-term (current) use of injectable non-insulin antidiabetic drugs | CPT/HCPCS: 82947; 99212 ==

== ENCOUNTER 2022-11-03 11:28 | Outpatient (AMB) | payer MEDICAID, SELFPAY ==
--- NOTE | 2022-11-03 11:47 | A.OFFVIS_ITS ---
Intake Intake Visit Reasons: DM Shipping Clerk/Admin Required: Yes Shipping Clerk/Admin Name: Faroese Pt's Daughter Information Interpreted: non-clinical & clinical Allergies pioglitazone [From Actos] Allergy (Mild, Verified 10/16/22 15:07) EDEMA, unknown HPI Comprehensive Diabetes Asmnt Most Recent Diabetes Results: Microalb/Creat Ratio TNP 10/07/22 Cholesterol 114 mg/dL 10/07/22 HDL Cholesterol 44 mg/dL 10/07/22 Triglycerides 82 mg/dL 10/07/22 Creatinine 0.87 mg/dL (0.5-1.4) 10/07/22 Blood Urea Nitrogen 17 mg/dL (9-16) H 10/07/22 Sodium 140 mmol/L (135-145) 10/07/22 Potassium 3.7 mmol/L (3.3-5.1) 10/07/22 Chloride 100 mmol/L (96-108) 10/07/22 Carbon Dioxide 32 mmol/L (22-29) H 10/07/22 Calcium 9.9 mg/dL (8.4-10.2) 10/07/22 AST 13 U/L (5-31) 10/07/22 ALT 19 U/L (0-31) 10/07/22 Total Protein 7.5 g/dL (6.5-8.0) 10/07/22 Albumin 4.1 g/dL (3.5-5.0) 10/07/22 [facility] Medical History Allergic rhinitis Anemia Asthma Background diabetic retinopathy associated with type 2 diabetes mellitus Constipation COVID-19 vaccine administered Depression Diabetes type 2, uncontrolled Diabetic neuropathy associated with type 2 diabetes mellitus Dyslipidemia Essential hypertension Heart murmur Hemorrhoids HTN (hypertension) Hypoglycemia associated with type 2 diabetes mellitus 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 Mother Heart disease HTN (hypertension) Diabetes Pacemaker Depression Family/Other Diabetes Social History Household Members: None Are you a primary home health aide caregiver to a significant other at home: No Do you presently have visiting nurse or other home services: No Alcohol intake: never Patient Tobacco Use Status: Never used Tobacco Sexual orientation: Straight/Heterosexual Gender identity: Female Assessment & Plan Assessment & Plan (1) Type 2 diabetes mellitus with mild nonproliferative diabetic retinopathy without macular edema, bilateral: Code(s): E11.3293 - Type 2 diabetes mellitus with mild nonproliferative diabetic retinopathy without macular edema, bilateral Plan: Personal Continuous Glucose Monitor: Patient saw Dr. Grey on 10/16/2022, patient has restarted Ozempic 2 mg weekly, patient has also never received CGM supplies Patient's daughter inserted new Dexcom G7 sensor on left arm, patient left visit with sensor in warmup Patients CGM information reviewed Reviewed patient's sensor data: Hypoglycemia: ? 0% Hyperglycemia:? 58% Time in Range:? 42 per Average glucose for the last 2 weeks 205? mg/dL Patient is experiencing overnight hyperglycemia. No changes made to patient's medications at this visit, patient will follow-up with certified breastfeeding educator in 1 month at that time we will re-evaluate overnight hyperglycemia, after patient has had 6 weeks of Ozempic 2 mg Reviewed how to interpret trend arrows Reminded patient that to check finger sticks if symptoms do not match sensor reading. Discussed lag time between finger stick and sensor data.? Patient's daughter able to insert sensor independently at home without issue.? Patient Instructions: Instrucciones para el paciente: CGM proporciona informaci?n sobre el control de la glucosa en willem a lo augustin del d?a, incluidas la hiperglucemia y la hipoglucemia. Contin?e controlando la glucosa en willem seg?n las instrucciones. Siga las pautas de nutrici?n proporcionadas. Informe cualquier molestia de inmediato al proveedor de atenci?n m?dica. Mantente judd hidratado. Puede ba?arse, ducharse, nadar y hacer ejercicio mientras usa el sensor de glucosa. No sumerja el sensor de glucosa en agua sascha m?s de 30 minutos. Retire el sensor para lam resonancia magn?mervin o lam tomograf?a computarizada. Evite la m?quina de zaheer X en los aeropuertos: retire el sensor o solicite la varita Coding Level of Care Code Est Pt Level 1 (51485) Diagnoses Type 2 diabetes mellitus with mild nonproliferative diabetic retinopathy without macular edema, bilateral E11.3293
== END 2022-11-03 12:55 | disposition home or self-care (01) ==
PROVIDERS: PCP Family Medicine; Visit Provider Registered Nurse Diabetes Educator
DX: E11.3293 Type 2 diabetes mellitus with mild nonproliferative diabetic retinopathy without macular edema, bilateral (principal)

== ENCOUNTER → 2022-11-03 11:28 | Outpatient (BNVA) | payer MEDICAID, SELFPAY | PROVIDERS: PCP Family Medicine; Visit Provider Registered Nurse Diabetes Educator | DX: E11.3293 Type 2 diabetes mellitus with mild nonproliferative diabetic retinopathy without macular edema, bilateral (principal) | CPT/HCPCS: 99211 ==

== ENCOUNTER 2022-12-01 11:28 | Outpatient (AMB) | payer MEDICAID, SELFPAY ==
--- NOTE | 2022-12-01 11:34 | MHC.OFFVIS ---
Intake Vital Signs 12/01/22 11:36 Height 5 ft 1 in Weight 141 lb 1.533 oz BMI 26.7 BP 86/56 L Blood Pressure Location Lt brachial Position Sitting Pulse 64 Intake Visit Reasons: 3 month follow up Intake Note: Jaimee presents in the office as a 3 month follow up. CC: She keeps losing weight and she states that she is eating but she will vomit her food up sometimes. Sometimes she will not want to eat if she gains weight. 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 She is now taking the reglan as directed, and this has resolved her abd pain and N/V. She continues on her pantoprazole in her senna as well. She is also moving he bowels well. ROV 3 mos. (2) GERD (gastroesophageal reflux disease): Code(s): K21.9 - Gastro-esophageal reflux disease without esophagitis (3) Irritable bowel syndrome with both constipation and diarrhea: Code(s): K58.2 - Mixed irritable bowel syndrome TODAY'S VISIT [employer] [place] [employer] #dtr translates per pt request She has only vomited 2 times since I last saw her. This is a great improvement from her prior presentation. She was eating [place] [employer] when it happened. It will start with the pain in the mid-epigastric to gastric area and then suddenly all the food will come up. She cannot identify any change in her eating habits or medications that proceeded this. We discussed the fact that if she vomit she should try to keep track of which she is eating and avoid the food that seems to set off. She continues on her pantoprazole twice a day. She is on Ozempic and she is currently losing weight and I explained that this is likely related to the medication and her primary doctor or the prescriber should be monitoring her to decide when to cut back the dose. She will continue the reglan 10mg qidachs as she feels satisfied with her GI regimen. ROV 6 mos. 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 Mother Heart disease HTN (hypertension) Diabetes Pacemaker Depression Family/Other Diabetes Social History Household Members: None Are you a primary child adolescent care to a significant other at home: No Do you presently have visiting nurse or other home services: No Alcohol intake: never Patient Tobacco Use Status: Never used Tobacco Sexual orientation: Straight/Heterosexual Gender identity: Female Review of Systems Const Denies fatigue, Denies fever(s), Denies night sweats, Denies poor appetite and Denies weight loss ENT Reports Normal hearing present, Denies dental pain, Denies dysphagia, Denies hearing loss, Denies mouth pain, Denies odynophagia, Denies throat swelling, Denies tongue swelling and Reports other (Dentition adequate) Card Reports no additional complaints Resp Reports no additional complaints GI Denies abdominal pain, Denies melena, Denies bloating, Denies hematochezia, Reports constipation, Denies GI cramping, Denies dysphagia, Denies excessive flatus, Denies early satiety, Reports heartburn, Denies diarrhea, Denies nausea, Denies odynophagia, Denies vomiting and Denies hematemesis Skin/Breast Denies pruritus, Denies lesions, Denies rash and Denies jaundice Neuro Reports Normal hearing present and Denies Abnormal speech present Endo Denies fatigue Aller/Immun Denies throat swelling and Denies tongue swelling Physical Exam Vital Signs: Last Vital Signs Pulse 64 12/01/22 11:36 BP 86/56 L 12/01/22 11:36 BMI result Body Mass Index 26.7 Const General: cooperative, no acute distress, well developed and well groomed Nutritional Appearance: well nourished and overweight Orientation/consciousness: oriented to person, oriented to place and oriented to time Limitations: language barrier and ambulation with cane HEENT Head: Yes normocephalic and Yes atraumatic Eyes General: appearance normal, both eyes and all related structures Pupils: Equal, round and reactive pupils present Neck Neck: Yes normal visual inspection and Yes no lymphadenopathy Thyroid: Thyroid normal Resp Effort & Inspection: normal respiratory effort and able to speak in complete sentences Auscultation: clear to auscultation bilaterally Cardio Rate: regular rate Rhythm: regular rhythm Heart sounds: Normal, physiologic split S2 sound present Peripheral pulses: radial pulses present and posterior tibial pulses present GI Inspection: No distended, No Abdominal panniculus present and Yes obesity Palpation (GI): Soft to palpation, nontender, no guarding, not rigid and No hepatosplenomegaly present Percussion: Yes normal to percussion Auscultation: normal bowel sounds Rectal Exam - Female: deferred Skin General skin exam: no rashes or lesions noted, turgor normal, skin not dry, no jaundice, No spider nevi and no striae Rashes: no rashes Nails: normal Neuro General: oriented to person, oriented to place and oriented to time Cranial nerves: Yes Equal, round and reactive pupils present and Yes Normal hearing present Speech: No Abnormal speech present Extrem General: Yes normal to inspection, No clubbing, No cyanosis and No edema Psych Appearance: grossly normal and well kempt Mental Status: mental status grossly normal Speech and movement: Normal speech and movement present Affect: normal affect Attitude: cooperative Thought process: Normal thought process present and not confabulating Thought content: Normal thought content present Insight: Limited insight present (Psych) Judgement: Limited judgement present (Psych) Assessment & Plan Assessment & Plan (1) Gastroparesis: Code(s): K31.84 - Gastroparesis Plan: [employer] [place] [employer] #dtr translates per pt request She has only vomited 2 times since I last saw her. This is a great improvement from her prior presentation. She was eating [place] [employer] when it happened. It will start with the pain in the mid-epigastric to gastric area and then suddenly all the food will come up. She cannot identify any change in her eating habits or medications that proceeded this. We discussed the fact that if she vomit she should try to keep track of which she is eating and avoid the food that seems to set off. She continues on her pantoprazole twice a day. She is on Ozempic and she is currently losing weight and I explained that this is likely related to the medication and her primary doctor or the prescriber should be monitoring her to decide when to cut back the dose. She will continue the reglan 10mg qidachs as she feels satisfied with her GI regimen. ROV 6 mos. (2) GERD (gastroesophageal reflux disease): Code(s): K21.9 - Gastro-esophageal reflux disease without esophagitis (3) Irritable bowel syndrome with both constipation and diarrhea: Code(s): K58.2 - Mixed irritable bowel syndrome Medications: Refilled pantoprazole (Protonix) 40 mg PO BID 30 days 60 tabs 6RF K21.9 - Gastro-esophageal reflux disease without esophagitis, K29.70 - Gastritis, unspecified, without bleeding metoclopramide HCl 10 mg PO QIDACHS 120 tabs 6RF K31.84 - Gastroparesis sennosides (senna) 17.2 mg (2 x 8.6 mg) PO BEDTIME PRN 180 tabs 0RF for constipation sucralfate (Carafate) 20 mL PO DAILY 420 mL 3RF K29.70 - Gastritis, unspecified, without bleeding, R11.2 - Nausea with vomiting, unspecified Coding Level of Care Code Est Pt Level 4 (98920) Diagnoses Gastroparesis K31.84 GERD (gastroesophageal reflux disease) K21.9 Irritable bowel syndrome with both constipation and diarrhea K58.2
[2022-12-01 11:36] VITALS: BP 86/56; PULSE 64; BMI 26.7
== END 2022-12-01 12:19 | disposition home or self-care (01) ==
PROVIDERS: PCP Family Medicine; Visit Provider Nurse Practitioner
DX: K31.84 Gastroparesis (principal); K21.9 Gastro-esophageal reflux disease without esophagitis; K58.2 Mixed irritable bowel syndrome
CPT/HCPCS: 99214

== ENCOUNTER → 2022-12-01 11:28 | Outpatient (BNVA) | payer MEDICAID, SELFPAY | PROVIDERS: PCP Family Medicine; Visit Provider Nurse Practitioner | DX: K31.84 Gastroparesis (principal); K21.9 Gastro-esophageal reflux disease without esophagitis; K58.2 Mixed irritable bowel syndrome; Z79.899 Other long term (current) drug therapy | CPT/HCPCS: 99212 ==

== ENCOUNTER 2023-03-01 10:38 | Emergency (ER) | payer MEDICAID, SELFPAY ==
[2023-03-01 11:22] VITALS: BP 129/63; PULSE 69; RESP 19; TEMP 36.2; O2SAT 97; BMI 26.5
--- NOTE | 2023-03-01 11:24 | ED.GENADULT ---
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 Patient states that she has a tooth in her right upper mouth that she knows needs a root canal on that side but the pain has been worse over the last 3 days. Patient denies any dizziness, lightheadedness, abdominal pain, nausea, vomiting, fever, chills, blurry vision, double vision, loss of vision, chest pain, difficulty breathing, shortness of breath, back pain, night sweats, pain with urination, increased urinary frequency, increased urinary urgency, blood in her urine or stool, syncope or a near syncopal episode, recent trauma or falls, bowel incontinence, bladder incontinence, bowel retention, bladder retention, or any other complaints at this time. Onset (ago): day(s) (3) Location: mouth and right Severity: mild Severity scale (1-10): 2 Quality: aching and dull Pain Consistency: constant Relieving factors: none Exacerbating factors: none Associated symptoms: denies other symptoms Treatments prior to arrival: none Related Data Home Medications Medication Instructions Recorded Confirmed furosemide 20 mg tablet (Lasix) 10 mg PO QAM 12/27/19 02/13/22 aspirin 81 mg tablet,delayed 81 mg PO QPM 04/23/20 02/13/22 release buspirone 30 mg tablet 30 mg PO QAM AND QHS 04/23/20 02/13/22 cilostazol 50 mg tablet 50 mg PO BID 04/23/20 02/13/22 ferrous sulfate 325 mg (65 mg 325 mg PO QAM 04/23/20 02/13/22 iron) tablet (Iron (ferrous sulfate)) lisinopril 20 2 tab PO DAILY 04/23/20 02/13/22 mg-hydrochlorothiazide 12.5 mg tablet lorazepam 0.5 mg tablet See Rx Instructions PO BID PRN 04/23/20 02/13/22 Anxiety venlafaxine 150 mg 150 mg PO QAM 04/23/20 02/13/22 capsule,extended release 24 hr zolpidem 10 mg tablet 10 mg PO BEDTIME PRN Insomnia 04/23/20 02/13/22 blood sugar diagnostic (FreeStyle #10 ea 02/13/22 02/13/22 Lite Strips) tramadol 50 mg tablet 50 mg PO DAILY PRN pain 03/19/22 Previous Rx's Medication Instructions Recorded lancets 28 gauge (FreeStyle #300 ea 12/29/19 Lancets) pen needle, diabetic 32 gauge x #400 ea 12/29/19 5/32 (BD Irais 2nd Gen Pen Needle) rosuvastatin 40 mg tablet 40 mg PO BEDTIME 90 days #90 tabs 06/04/20 empagliflozin 25 mg tablet 25 mg PO QAM 30 days #30 tabs 08/07/20 (Jardiance) insulin syringe-needle U-100 1/2 1 ml miscellaneous .3 times a day 08/07/20 mL 31 gauge x 15/64 (BD Veo 90 days #300 ea Insulin Syringe Ultra-Fine) blood-glucose meter (FreeStyle #1 ea 05/06/21 Lite Meter kit) glucagon 3 mg/actuation nasal 3 mg intranasal ONCE #2 ea 06/06/21 spray (Baqsimi) cholecalciferol (vitamin D3) 50 50 mcg PO QAM #30 caps 07/24/21 mcg (2,000 unit) capsule semaglutide 2 mg/dose (8 mg/3 mL) 2 mg (0.75 mL) subcut QWEEK #3 mL 10/16/22 subcutaneous pen injector (Ozempic) metoclopramide HCl 10 mg tablet 10 mg PO QIDACHS #120 tabs 12/01/22 sennosides 8.6 mg tablet (senna) 17.2 mg (2 x 8.6 mg) PO BEDTIME 12/01/22 PRN for constipation #180 tabs sucralfate 100 mg/mL oral 20 ml PO DAILY #420 mL 12/01/22 suspension (Carafate) insulin degludec 200 unit/mL (3 70 unit (0.35 mL) subcut DAILY #9 12/07/22 mL) subcutaneous pen (Tresiba mL FlexTouch U-200 insulin) insulin lispro 100 unit/mL See Rx Instructions subcut 12/07/22 subcutaneous solution USEASDIRECTD #20 mL metformin 500 mg tablet,extended 1,000 mg (2 x 500 mg) PO BID #120 12/21/22 release 24 hr tabs pantoprazole 40 mg tablet,delayed 40 mg PO BID #180 tabs 01/29/23 release penicillin V potassium 500 mg 500 mg PO BID 10 days #20 tabs 03/01/23 tablet Allergies Allergy/AdvReac Type Severity Reaction Status Date / Time pioglitazone [From Actos] Allergy Mild EDEMA, Verified 12/01/22 11:36 unknown Review of Systems Constitutional: Constitutional: Reports no additional constitutional complaints, Denies chills, Denies fever(s) and Denies night sweats Eyes: Eyes: Reports no additional eye complaints, Denies blurry vision, Denies change in vision, Denies diplopia, Denies eye discharge, Denies loss of vision and Denies eye pain ENT: Denies dizziness Comments: right upper dental pain Cardiovascular: Cardiovascular: Reports no additional cardiovascular complaints, Denies chest pain, Denies lightheadedness, Denies Loss of Consciousness and Denies dyspnea Respiratory: Respiratory: Reports no additional respiratory complaints and Denies dyspnea Gastrointestinal: Gastrointestinal: Reports no additional gastrointestinal complaints, Denies abdominal pain, Denies melena, Denies hematochezia, Denies change in bowel habits and Denies change in stool character Genitourinary: Genitourinary: Denies hematuria, Denies urinary frequency, Denies dysuria, Denies urinary incontinence, Denies urinary hesitancy and Denies urinary urgency Musculoskeletal: Musculoskeletal: Reports no additional musculoskeletal complaints, Denies numbness and Denies tingling Neurologic: Denies dizziness, Denies loss of vision, Denies numbness and Denies tingling Psychiatric: Psychiatric: Reports no additional psychiatric complaints Endocrine: Endocrine: Reports no additional endocrine complaints Hematologic/Lymphatic: Hematologic/Lymphatic: Reports no additional hematologic/lymphatic complaints Allergic/Immunologic: Allergic/Immunologic: Reports no additional allergic/immunologic complaints PMFSH Past Medical History Attestation statement: The following information was validated with the patient. (all information validated with the patient's daughter) Source: old records reviewed, obtained from family (patient's daughter provided additional history and confirmed the history provided by the patient.) and nursing notes reviewed Onset Date is defined in the Problem List Problems that require an onset date and time if occurred within 24 hrs of arrival to the ED Aortic Dissection and Rupture; Neurologic impairment; Cardiopulmonary Arrest; Endotracheal Intubation; Insertion or Replacement of Mechanical Circulatory Assist Device Medical History Colon cancer screening Upper abdominal pain Nausea and vomiting 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 Obesity with body mass index of 30.0-39.9 Hypoglycemia associated with type 2 diabetes mellitus Diabetes type 2, uncontrolled Heart murmur COVID-19 vaccine administered Diabetic neuropathy associated with type 2 diabetes mellitus Background diabetic retinopathy associated with type 2 diabetes mellitus PATRICIA (obstructive sleep apnea) Hemorrhoids Asthma Type 2 diabetes mellitus with mild nonproliferative diabetic retinopathy without macular edema, bilateral Type 2 diabetes mellitus with hyperglycemia, with long-term current use of insulin Essential hypertension Dyslipidemia Menometrorrhagia Polypharmacy Depression Allergic rhinitis Venous insufficiency Anemia Obesity Constipation HTN (hypertension) Surgical History History of esophagogastroduodenoscopy (EGD) Hx of colonoscopy History of bilateral tubal ligation Family History Family History Father No problems noted. Mother Heart disease HTN (hypertension) Diabetes Pacemaker Depression Family/Other Diabetes Social History Social History Household Members: None Are you a primary child day care provider to a significant other at home: No Do you presently have visiting nurse or other home services: No Alcohol intake: never Patient Tobacco Use Status: Never used Tobacco Advance Directives: No Advance Directives Information Provided: Yes Sexual orientation: Straight/Heterosexual Gender identity: Female Physical Exam ED Vital Signs: Vital Signs - 24 hr 03/01/23 11:22 Temperature 97.1 F Pulse Rate 69 Respiratory Rate 19 Blood Pressure 129/63 Pulse Oximetry 97 Oxygen Delivery Method Room Air BMI result Body Mass Index 26.5 Const General: cooperative, no acute distress, alert and awake Nutritional Appearance: well nourished Orientation/consciousness: patient oriented x3 Limitations: no limitations HENMT Head: Yes normal to inspection and Yes atraumatic Ears: hearing grossly normal bilaterally and external ears normal General nose exam: Normal external nose present, no nasal discharge noted and no epistaxis Face and sinus: Yes normal facial exam, No abrasion and No laceration Mouth: Normal oral and palatal mucosa present, no drooling and no muffled voice Teeth and gingiva: poor dentition and other (has a dental appliance around teeth 1-4) Eyes General: appearance normal, both eyes and all related structures Periorbital: periorbital findings normal Eyelids: Yes eyelids normal Conjunctivae: conjunctivae normal Pupils: Equal, round and reactive pupils present EOM: EOMs intact bilaterally Neck Neck: Yes normal visual inspection, Yes full ROM and Yes no lymphadenopathy Chest Chest palpation & inspection: normal inspection of the chest Resp Effort & Inspection: normal respiratory effort and able to speak in complete sentences GI Inspection: Yes normal to inspection Neuro General: patient oriented x3 and moves all extremities Cranial nerves: Yes Equal, round and reactive pupils present Cognition (Neuro): normal cognition Motor exam (neuro): 5/5 motor strength present throughout Sensory Exam: Normal double simultaneous stimulation for sensation Coordination: [id number] test normal Extrem General: Yes normal to inspection, Yes full ROM and Yes capillary refill normal Psych Appearance: grossly normal Mental Status: mental status grossly normal Affect: normal affect Attitude: cooperative Thought process: Normal thought process present Thought content: Normal thought content present Insight: Good insight present (Psych) Medical Decision Making Medical Decision Making MDM Narrative: Patient is a 62 year old assigned female at with a history of DM and GERD presenting to the emergency department today with right upper dental pain. Patient's physical exam was as noted in the physical exam portion of this note. Patient did not have any fluctuance or anything to drain in the area of pain however, given patient's history of diabetes, will cover for dental abscess. I explained my physical exam findings as well as all test results to the patient. I answered all questions asked by the patient and the patient's daughter. I stressed the importance of the patient taking her medication as prescribed. I stressed the importance of the patient following up with her primary care provider. I stressed the importance of the patient returning to the emergency department immediately if her symptoms were to worsen or if she were to develop any dizziness, shortness of breath, difficulty breathing, chest pain, blurry vision, loss of vision, nausea, vomiting, abdominal pain, fever, chills, back pain, or any other complaints. Patient and the patient's daughter verbalized agreement and understanding with this treatment plan and discharge. Differential Diagnosis Differential Diagnoses: The differential diagnosis associated with the presentation includes Dental abscess Dental pain Admission/Observation Consideration of admission/observation: Escalation of care including admission/observation considered Patient would have been admitted to the hospital had her clinical presentation warranted hospital admission. Independent Historian Clinical information obtained from an independent historian. History obtained from or confirmed by: Other (patient's daughter provided additional history and confirmed the history provided by the patient.) Prescription Management I considered prescription management with: Antibiotic (patient prescribed an antibiotic for possible dental abscess.) Chronic Conditions Patient?s care impacted by: Diabetes Discharge Plan Discharge Clinical Impression: Dental abscess Patient Disposition: Home, Self-Care Instructions: Dental Abscess (ED) Additional Instructions: Follow up with your primary care provider and a dentist. Return to the emergency department immediately if your symptoms worsen or if you develop any dizziness, shortness of breath, difficulty breathing, chest pain, blurry vision, loss of vision, nausea, vomiting, abdominal pain, fever, chills, back pain, or any other complaints. Hemal un seguimiento con olvera proveedor de atenci?n primaria y un dentista. Regrese al departamento de emergencias inmediatamente si guillermo s?ntomas empeoran o si presenta mareos, dificultad para respirar, dificultad para respirar, dolor en el pecho, visi?n borrosa, p?rdida de la visi?n, n?useas, v?mitos, dolor abdominal, fiebre, escalofr?os, dolor de espalda o cualquier otras quejas. Call or visit any of the clinics below to establish with a dentist: Llame o visite cualquiera de las cl?nicas a continuaci?n para establecer lam eddie con un dentista: [facility] [address] [place] [address] [facility] [address] [facility], [address] Rudy Xiong [address] [place] [address] [facility] [address] [place] [address] [facility] [address] [place] [id number] [place] [address] [place] [address] Prescriptions: New penicillin V potassium 500 mg tablet 500 mg PO BID 10 Days Qty: 20 0RF No Action (DME) pen needle, diabetic [BD Irais 2nd Gen Pen Needle] 32 gauge x 5/32 needle See Rx Instructions .MEDSUPPLY Qty: 400 4RF Rx Instructions: 5 times a day (DME) lancets [FreeStyle Lancets] 28 gauge misc See Rx Instructions .MEDSUPPLY Qty: 300 2RF Rx Instructions: 3 times a day rosuvastatin 40 mg tablet 40 mg PO BEDTIME 90 Days Qty: 90 2RF (DME) blood-glucose meter [FreeStyle Lite Meter] Kit See Rx Instructions .Route Qty: 1 0RF Rx Instructions: As directed cholecalciferol (vitamin D3) 50 mcg (2,000 unit) capsule 50 mcg PO QAM Qty: 30 4RF Tresiba FlexTouch U-200 200 unit/mL (3 mL) insulin pen 70 unit subcut DAILY Qty: 9 6RF insulin lispro 100 unit/mL solution See Rx Instructions subcut USEASDIRECTD Qty: 20 12RF Rx Instructions: Inject 8-12 units prior to meals subcutaneously use as directed; metformin 500 mg tablet extended release 24 hr 1,000 mg PO BID Qty: 120 6RF pantoprazole 40 mg tablet,delayed release (DR/EC) 40 mg PO BID Qty: 180 2RF furosemide [Lasix] 20 mg tablet 10 mg PO QAM aspirin 81 mg tablet,delayed release (DR/EC) 81 mg PO QPM buspirone 30 mg tablet 30 mg PO QAM AND QHS cilostazol 50 mg tablet 50 mg PO BID ferrous sulfate [Iron (ferrous sulfate)] 325 mg (65 mg iron) tablet 325 mg PO QAM lisinopril-hydrochlorothiazide 20-12.5 mg tablet 2 tab PO DAILY lorazepam 0.5 mg tablet See Rx Instructions PO BID PRN (Reason: Anxiety) Rx Instructions: 1-2 tabs. Max 2 tabs PO 2 times a day PRN; venlafaxine 150 mg capsule,extended release 24hr 150 mg PO QAM zolpidem 10 mg tablet 10 mg PO BEDTIME PRN (Reason: Insomnia) Jardiance 25 mg tablet 25 mg PO QAM 30 Days Qty: 30 6RF insulin syringe-needle U-100 [BD Veo Insulin Syringe UF] 1/2 mL 31 gauge x 15/64 syringe 1 ml miscellaneous .3 times a day 90 Days Qty: 300 2RF Baqsimi 3 mg/actuation spray,non-aerosol 3 mg intranasal ONCE Qty: 2 4RF (DME) FreeStyle Lite Strips Strip See Rx Instructions .ROUTE .MEDSUPPLY Qty: 10 Rx Instructions: As directed tramadol 50 mg tablet 50 mg PO DAILY PRN (Reason: pain) metoclopramide HCl 10 mg tablet 10 mg PO QIDACHS Qty: 120 6RF sennosides [senna] 8.6 mg tablet 17.2 mg PO BEDTIME PRN (Reason: for constipation) Qty: 180 0RF sucralfate [Carafate] 100 mg/mL suspension 20 ml PO DAILY Qty: 420 3RF Ozempic 2 mg/dose (8 mg/3 mL) pen injector 2 mg subcut QWEEK Qty: 3 4RF Referrals: Neyda Chacko MD [Primary Care Provider] - Interventions: ED Discharge Assessment Last Done: 03/01/23 11:32 Discharge Date/Time: 03/01/23 11:32 Print Language: Montenegrin
== END 2023-03-01 11:32 | disposition home or self-care (01) ==
PROVIDERS: Emergency Provider Emergency Medicine; PCP Family Medicine
DX: K04.7 Periapical abscess without sinus (principal); Z79.899 Other long term (current) drug therapy
CPT/HCPCS: 99282; 99283

== ENCOUNTER 2023-03-29 10:37 | Outpatient (AMB) | payer MEDICARE, MEDICAID, SELFPAY ==
--- NOTE | 2023-03-29 10:38 | MHC.OFFVIS ---
Intake Vital Signs 03/29/23 10:41 BP 118/70 Intake Visit Reasons: New patient Prolapse Hearing Aid Assistant Required: Yes Hearing Aid Assistant Language: Elevator Technician Name: Jessica SENA Information Interpreted: non-clinical & clinical Quill Picking Machine Operator: Quill Picking Machine Operator Present (Jessica SENA) Accompanied by: Self / Same As Patient Allergies pioglitazone [From Actos] Allergy (Mild, Verified 03/29/23 10:44) EDEMA, unknown Post menopausal: Yes HPI HPI Comments History of Present Illness Details Presenting complaining of bulge per vagina with no associated urine incontinence or constipation. 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 Obesity with body mass index of 30.0-39.9 Hypoglycemia associated with type 2 diabetes mellitus Diabetes type 2, uncontrolled Heart murmur COVID-19 vaccine administered Diabetic neuropathy associated with type 2 diabetes mellitus Background diabetic retinopathy associated with type 2 diabetes mellitus PATRICIA (obstructive sleep apnea) Hemorrhoids Asthma Type 2 diabetes mellitus with mild nonproliferative diabetic retinopathy without macular edema, bilateral Type 2 diabetes mellitus with hyperglycemia, with long-term current use of insulin Essential hypertension Dyslipidemia Menometrorrhagia Polypharmacy Depression Allergic rhinitis Venous insufficiency Anemia Obesity Constipation HTN (hypertension) Surgical History History of esophagogastroduodenoscopy (EGD) Hx of colonoscopy History of bilateral tubal ligation Family History Father No problems noted. Mother Heart disease HTN (hypertension) Diabetes Pacemaker Depression Family/Other Diabetes Social History Household Members: None Are you a primary career guidance counselor to a significant other at home: No Do you presently have visiting nurse or other home services: No Alcohol intake: never Patient Tobacco Use Status: Never used Tobacco Sexual orientation: Straight/Heterosexual Gender identity: Female Review of Systems Const All systems reviewed & are unremarkable except as noted in HPI and below Physical Exam Vital Signs: Last Vital Signs BP 118/70 03/29/23 10:41 General: Yes no CVA tenderness External Female Exam: normal external appearance and normal appearance of the urethra Speculum Exam - Vagina: no lesions, no masses and other (Cystocele central and right paravaginal) Speculum Exam - Cervix: normal appearance of the cervix, normal palpation, no lesions, no masses, nontender and Other cervical findings present (Moderate uterine prolapse) Bimanual exam- vagina & uterus: normal bimanual exam, uterine size normal, normal palpation, uterine shape normal, No Cervical tenderness present, non-tender and other (Moderate uterine prolapse) Bimanual Exam- Adnexa, other: normal adnexae Back/Spine/Pelvis Back: no CVA tenderness Assessment & Plan Assessment & Plan (1) Cystocele with uterine prolapse: Comment: Moderate uterine prolapse Central and right paravaginal cystocele Code(s): N81.4 - Uterovaginal prolapse, unspecified Plan: Discussed with the patient the finding on pelvic exam, options of treatment including expectant management, pessary is or surgical treatment. All pros and cons, risks and benefits of each approach were discussed with the patient, the patient decided to proceed with expectant management for the time being and will call back if symptoms get worse. All questions answered, the patient verbalized understanding Coding Level of Care Code Est Pt Level 3 (97190) Diagnoses Cystocele with uterine prolapse N81.4
[2023-03-29 10:41] VITALS: BP 118/70
== END 2023-03-29 13:18 | disposition home or self-care (01) ==
LOC: HO.HWS 10:37
PROVIDERS: PCP Family Medicine; Visit Provider Obstetrics & Gynecology
DX: N81.4 Uterovaginal prolapse, unspecified (principal)
CPT/HCPCS: 99213

== ENCOUNTER → 2023-03-29 10:37 | Outpatient (BNVA) | payer MEDICARE, MEDICAID, SELFPAY | PROVIDERS: PCP Family Medicine; Visit Provider Obstetrics & Gynecology | DX: N81.4 Uterovaginal prolapse, unspecified (principal) | CPT/HCPCS: 99212 ==

== ENCOUNTER 2023-05-25 11:04 | Outpatient (AMB) | payer OTHER, MEDICAID, SELFPAY ==
[2023-05-25 11:05] VITALS: BP 102/54; PULSE 68; BMI 26.5
--- NOTE | 2023-05-25 11:05 | MHC.OFFVIS ---
Intake Vital Signs 05/25/23 11:05 Height 5 ft 2 in Weight 144 lb 13.499 oz BMI 26.5 BP 102/54 L Blood Pressure Location Lt brachial Position Sitting Pulse 68 Pulse Source Pulse Oximeter Intake Visit Reasons: DM-left v/m Intake Note: Patient present today to follow up on Type 2 Diabetes Mellitus. Last Diabetic Eye exam: 07/2022 Last Podiatry Visit: Over 1 year ago Random Glucose: 84 mg/dl HgA1C: 7.3% Equipment Service Lead Required: No Equipment Service Lead Name: Patient denied chair caner Accompanied by: Daughter Allergies pioglitazone [From NovoEDos] Allergy (Mild, Verified 05/25/23 11:11) EDEMA, unknown Medication List - Last Reconciled 05/25/23 by Samuel Grey MD aspirin 81 mg PO QPM blood sugar diagnostic (FreeStyle Lite Strips) As directed blood-glucose meter (FreeStyle Lite Meter kit) As directed buspirone 30 mg PO QAM AND QHS cholecalciferol (vitamin D3) 50 mcg PO QAM cilostazol 50 mg PO BID empagliflozin (Jardiance) 25 mg PO QAM 30 days ferrous sulfate (Iron (ferrous sulfate)) 325 mg PO QAM furosemide (Lasix) 10 mg PO QAM glucagon 3 mg/actuation (Baqsimi) 3 mg intranasal ONCE insulin degludec (Tresiba FlexTouch U-200 insulin) 70 units (0.35 mL) subcut DAILY insulin lispro Inject 8-12 units prior to meals subcutaneously use as directed; insulin syringe-needle U-100 (BD Veo Insulin Syringe Ultra-Fine) 1 mL miscellaneous .3 times a day 90 days lancets (FreeStyle Lancets) 3 times a day lisinopril-hydrochlorothiazide 20-12.5 mg 2 tabs PO DAILY lorazepam 1-2 tabs. Max 2 tabs PO 2 times a day PRN; metformin ER 1,000 mg (2 x 500 mg) PO BID metoclopramide HCl 10 mg PO QIDACHS pantoprazole 40 mg PO BID pen needle, diabetic (BD Irais 2nd Gen Pen Needle) 5 times a day penicillin V potassium 500 mg PO BID 10 days rosuvastatin 40 mg PO BEDTIME 90 days semaglutide (Ozempic) 2 mg (0.75 mL) subcut QWEEK sennosides (senna) 17.2 mg (2 x 8.6 mg) PO BEDTIME PRN sucralfate (Carafate) 20 mL PO DAILY tramadol 50 mg PO DAILY PRN venlafaxine ER 150 mg PO QAM zolpidem 10 mg PO BEDTIME PRN HPI HPI Comments History of Present Illness Details 63 -year-old female today for fup visit, for diabetes management . Dexcom download shows she is using the sensor 93% of the time. Average glucose is 181. Standard deviation is 70. 53% range with 29% hyperglycemia 16% very hyperglycemic and 1% hypoglycemia. Pattern shows declining blood sugars overnight with hypoglycemia primarily occurring around noon She is on Tresiba 75 units in the morning, Humalog 12 units before breakfast and 15 units before lunch and dinner Ozempic 2 mg weekly not taking for a mo ,metformin XR 1000 mg twice a day, jardiance 25 mg daily. She admits that sometimes she forgets to use the bolus before the meals. She had self increase the insulin doses . She does have hypoglycemia 2 X wk - happens when pt doesn't eat She has past medical history of depression, osteoarthritis, hyperlipidemia, obesity, hypertension. She has diabetes mellitus type 2 for 30 years. She has neuropathy, diabetic retinopathy, diabetic nephropathy , no macrovascular disease. she last saw ophthalmology has appt 12/2024 She has nocturia 4 times + polydipsia, polyuria, blurred vision. She has numbness, tingling. Laboratory Tests 07/26/19 08/01/19 08/01/19 09:58 11:00 11:00 Hgb Hct Sodium Potassium BUN Creatinine Glucose (Clinic) Random Glucose Hgb A1c Fingerstic k 7.4 Hgb A1c (Clinic) Calcium AST ALT Albumin Triglycerides 96 Cholesterol 130 LDL Cholesterol Di rect LDL Cholesterol, C alc 69 HDL Cholesterol 42 D Ur Random Microalb umin < 5.0 Microalb/Creat Rat io TNP 08/01/19 04/15/20 04/15/20 11:00 11:47 11:47 Hgb 13.2 Hct 40.4 Sodium 141 Potassium 4.3 BUN 19 H Creatinine 0.77 Glucose (Clinic) Random Glucose 57 L* Hgb A1c Fingerstic k Hgb A1c (Clinic) Calcium 9.4 AST 14 ALT 12 Albumin 4.1 Triglycerides Cholesterol LDL Cholesterol Di rect 61 LDL Cholesterol, C alc HDL Cholesterol Ur Random Microalb umin Microalb/Creat Rat io 04/23/20 04/23/20 10:12 10:23 Hgb Hct Sodium Potassium BUN Creatinine Glucose (Clinic) 269 H Random Glucose Hgb A1c Fingerstic k Hgb A1c (Clinic) 8.2 H Calcium AST ALT Albumin Triglycerides Cholesterol LDL Cholesterol Di rect LDL Cholesterol, C alc HDL Cholesterol Ur Random Microalb umin Microalb/Creat Rat io [facility] Medical History Colon cancer screening Upper abdominal pain Nausea and vomiting 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 Obesity with body mass index of 30.0-39.9 Hypoglycemia associated with type 2 diabetes mellitus Diabetes type 2, uncontrolled Heart murmur COVID-19 vaccine administered Diabetic neuropathy associated with type 2 diabetes mellitus Background diabetic retinopathy associated with type 2 diabetes mellitus PATRICIA (obstructive sleep apnea) Hemorrhoids Asthma Type 2 diabetes mellitus with mild nonproliferative diabetic retinopathy without macular edema, bilateral Type 2 diabetes mellitus with hyperglycemia, with long-term current use of insulin Essential hypertension Dyslipidemia Menometrorrhagia Polypharmacy Depression Allergic rhinitis Venous insufficiency Anemia Obesity Constipation HTN (hypertension) Surgical History History of esophagogastroduodenoscopy (EGD) Hx of colonoscopy History of bilateral tubal ligation Family History Father No problems noted. Mother Heart disease HTN (hypertension) Diabetes Pacemaker Depression Family/Other Diabetes Social History Household Members: None Are you a primary care program director to a significant other at home: No Do you presently have visiting nurse or other home services: No Alcohol intake: never Patient Tobacco Use Status: Never used Tobacco Sexual orientation: Straight/Heterosexual Gender identity: Female Physical Exam Vital Signs: Last Vital Signs Pulse 68 05/25/23 11:05 BP 102/54 L 05/25/23 11:05 BMI result Body Mass Index 26.5 Absence of Cushingoid features. Absence of acromegalic features. Neck exam reveals nl size thyroid about 15 gms. No thyroid nodules palpable. No carotid bruits present. Lungs CTA. Heart S1 S2, Reg R/R. No M/R/ G. Skin exam reveals absence of vitiligo or acanthosis nigricans. Abdominal exam reveals Soft NT/ND with NA BS. No organomegaly present. Neck Other: . Extrem Other: Visual exam of foot performed. No ulcerations or open lesions. No onchomycosis, no callouses.Pulses 2 + distally Sensation intact to monofilament exam. 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 . There is significant psychosocial issues interfering with good glycemic control including noncompliance with insulin and meds as well as sporadic meal intake The plan is to continue the current regimen. At this point, patient is glycemic control is optimized considering other comorbid psychosocial issues physical issues. She returned to the care of her primary care provider returned back to endocrinology should her HbA1c deteriorate Orders: Orders AMB Hemoglobin A1c Today E11.65 - Type 2 diabetes mellitus with hyperglycemia, Z13.9 - Encounter for screening, unspecified, Z79.4 - long-term (current) use of insulin Coding Level of Care Code Est Pt Level 4 (27633) Diagnoses Type 2 diabetes mellitus with hyperglycemia, with long-term current use of insulin E11.65; Z79.4
[2023-05-25 11:17] LABS: Glucose, Whole Blood 84 mg/dL (60-115)
== END 2023-05-25 11:28 | disposition home or self-care (01) ==
PROVIDERS: PCP Family Medicine; Referring Provider Family Medicine; Visit Provider Internal Medicine Endocrinology, Diabetes & Metabolism
DX: Z13.9 Encounter for screening, unspecified (principal); E11.65 Type 2 diabetes mellitus with hyperglycemia; Z79.4 Long term (current) use of insulin
CPT/HCPCS: 99214

== ENCOUNTER → 2023-05-25 11:04 | Outpatient (BNVA) | payer OTHER, MEDICAID, SELFPAY | PROVIDERS: PCP Family Medicine; Visit Provider Internal Medicine Endocrinology, Diabetes & Metabolism | DX: E11.65 Type 2 diabetes mellitus with hyperglycemia (principal); Z79.4 Long term (current) use of insulin | CPT/HCPCS: 82947; 83036; 99212 ==

== ENCOUNTER 2023-06-25 11:51 | Outpatient (AMB) | payer OTHER, SELFPAY ==
[2023-06-25 12:01] VITALS: BP 134/73; PULSE 72; BMI 25.4
--- NOTE | 2023-06-25 12:01 | A.OFFVIS_ITS ---
Vital Signs 06/25/23 12:01 Height 5 ft 2 in Weight 138 lb 14.259 oz BMI 25.4 BP 134/73 Blood Pressure Location Lt brachial Position Sitting Pulse 72 Intake Visit Reasons: 6 months f/u GERD Intake Note: Jaimee presents in the office as a 3 month follow in 6 months follow up of GERD. CC: She reports heartburn sometimes and occasional nasuea. Occup Ther Required: Yes Accompanied by: Self / Same As Patient Allergies pioglitazone [From Actos] Allergy (Mild, Verified 06/25/23 12:08) EDEMA, unknown HPI HPI 6 months f/u GERD: Details: Assessment & Plan (1) Gastroparesis: Code(s): K31.84 - Gastroparesis Plan: BRAZILIAN #dtr translates per pt request She has only vomited 2 times since I last saw her. This is a great improvement from her prior presentation. She was eating [employer] when it happened. It will start with the pain in the mid-epigastric to gastric area and then suddenly all the food will come up. She cannot identify any change in her eating habits or medications that proceeded this. We discussed the fact that if she vomit she should try to keep track of which she is eating and avoid the food that seems to set off. She continues on her pantoprazole twice a day. She is on Ozempic and she is currently losing weight and I explained that this is likely related to the medication and her primary doctor or the prescriber should be monitoring her to decide when to cut back the dose. She will continue the reglan 10mg qidachs as she feels satisfied with her GI regimen. ROV 6 mos. (2) GERD (gastroesophageal reflux disease): Code(s): K21.9 - Gastro-esophageal reflux disease without esophagitis (3) Irritable bowel syndrome with both constipation and diarrhea: Code(s): K58.2 - Mixed irritable bowel syndrome Medications: Refilled pantoprazole (Protonix) 40 mg PO BID 30 days 60 tabs 6RF K21.9 - Gastro- esophageal reflux disease without esophagitis, K29.70 - Gastritis, unspecified, without bleeding metoclopramide HCl 10 mg PO QIDACHS 120 tabs 6RF K31.84 - Gastroparesis sennosides (senna) 17.2 mg (2 x 8.6 mg) PO BEDTIME PRN 180 tabs 0RF for constipation sucralfate (Carafate) 20 mL PO DAILY 420 mL 3RF K29.70 - Gastritis, unspecified, without bleeding, R11.2 - Nausea with vomiting, unspecified TODAY'S VISIT BRAZILIAN #dtr translates per pt request They say that she had a relatively recent colonoscopy per Dr Chacko. THey says it was here but I can not find that in any of our records. I ask them to verify this with the PCP. She continues to do well in terms of her nausea and abdominal pain. Her PCP reduced her BP medications r/t wt loss and will be starting her on Ensure. She is on Ozempic for her diabetes, so this is a complicating factor. She continues on her carafate, pantoprazole bid, senna and reglan. ROV 6 mos. 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 Obesity with body mass index of 30.0-39.9 Hypoglycemia associated with type 2 diabetes mellitus Diabetes type 2, uncontrolled Heart murmur COVID-19 vaccine administered Diabetic neuropathy associated with type 2 diabetes mellitus Background diabetic retinopathy associated with type 2 diabetes mellitus PATRICIA (obstructive sleep apnea) Hemorrhoids Asthma Type 2 diabetes mellitus with mild nonproliferative diabetic retinopathy without macular edema, bilateral Type 2 diabetes mellitus with hyperglycemia, with long-term current use of insulin Essential hypertension Dyslipidemia Menometrorrhagia Polypharmacy Depression Allergic rhinitis Venous insufficiency Anemia Obesity Constipation HTN (hypertension) Surgical History History of esophagogastroduodenoscopy (EGD) Hx of colonoscopy History of bilateral tubal ligation Family History Father No problems noted. Mother Heart disease HTN (hypertension) Diabetes Pacemaker Depression Family/Other Diabetes Social History Household Members: None Are you a primary doggy daycare activities director to a significant other at home: No Do you presently have visiting nurse or other home services: No Alcohol intake: never Patient Tobacco Use Status: Never used Tobacco Sexual orientation: Straight/Heterosexual Gender identity: Female Review of Systems Const Denies fatigue, Denies fever(s), Denies night sweats, Denies poor appetite and Reports weight loss Eyes Details: glasses Reports requires corrective lenses ENT Reports Normal hearing present, Denies dental pain, Denies dysphagia, Denies hea ring loss, Denies mouth pain, Denies odynophagia, Denies throat swelling, Denies tongue swelling and Reports other (Dentition adequate) Card Reports no additional complaints Resp Reports no additional complaints GI Details: Denies abdominal pain, Denies melena, Reports bloating, Denies hematochezia, Reports constipation, Denies GI cramping, Denies dysphagia, Denies excessive flatus, Reports early satiety, Denies heartburn, Denies diarrhea, Reports nausea, Denies odynophagia, Denies vomiting and Denies hematemesis Skin/Breast Denies pruritus, Denies lesions, Denies rash and Denies jaundice Neuro Reports Normal hearing present and Denies Abnormal speech present Endo Denies fatigue Aller/Immun Denies throat swelling and Denies tongue swelling Physical Exam Vital Signs: Last Vital Signs Pulse 72 06/25/23 12:01 BP 134/73 06/25/23 12:01 BMI result Body Mass Index 25.4 Const General: cooperative, no acute distress, well developed and well groomed Nutritional Appearance: average body habitus and well nourished Orientation/consciousness: oriented to person, oriented to place and oriented to time Limitations: language barrier HEENT Head: Yes normocephalic and Yes atraumatic Eyes General: appearance normal, both eyes and all related structures Pupils: Equal, round and reactive pupils present Neck Neck: Yes normal visual inspection and Yes no lymphadenopathy Thyroid: Thyroid normal Resp Effort & Inspection: normal respiratory effort and able to speak in complete sentences Auscultation: clear to auscultation bilaterally Cardio Rate: regular rate Rhythm: regular rhythm Heart sounds: Normal, physiologic split S2 sound present Peripheral pulses: radial pulses present and posterior tibial pulses present GI Inspection: No distended, No Abdominal panniculus present and Yes obesity Palpation (GI): Soft to palpation, nontender, no guarding, not rigid and No hepatosplenomegaly present Percussion: Yes normal to percussion Auscultation: normal bowel sounds Rectal Exam - Female: deferred Skin General skin exam: no rashes or lesions noted, turgor normal, skin not dry, no jaundice, No spider nevi and no striae Rashes: no rashes Nails: normal Neuro General: oriented to person, oriented to place and oriented to time Cranial nerves: Yes Equal, round and reactive pupils present and Yes Normal hearing present Speech: No Abnormal speech present Extrem General: Yes normal to inspection, No clubbing, No cyanosis and No edema Psych Appearance: grossly normal and well kempt Mental Status: mental status grossly normal Speech and movement: Normal speech and movement present Affect: normal affect Thought process: Normal thought process present and not confabulating Thought content: Normal thought content present Insight: Limited insight present (Psych) Judgement: Limited judgement present (Psych) Assessment & Plan Assessment & Plan (1) Gastroparesis: Code(s): K31.84 - Gastroparesis Category: Medical (2) GERD (gastroesophageal reflux disease): Code(s): K21.9 - Gastro-esophageal reflux disease without esophagitis Category: Medical (3) Irritable bowel syndrome with both constipation and diarrhea: Code(s): K58.2 - Mixed irritable bowel syndrome Category: Medical Plan BRAZILIAN #dtr translates per pt request They say that she had a relatively recent colonoscopy per Dr Chacko. THey says it was here but I can not find that in any of our records. I ask them to verify this with the PCP. She continues to do well in terms of her nausea and abdominal pain. Her PCP reduced her BP medications r/t wt loss and will be starting her on Ensure. She is on Ozempic for her diabetes, so this is a complicating factor. She continues on her carafate, pantoprazole bid, senna and reglan. ROV 6 mos. Coding Level of Care Code Est Pt Level 3 (30707) Diagnoses Gastroparesis K31.84 GERD (gastroesophageal reflux disease) K21.9 Irritable bowel syndrome with both constipation and diarrhea K58.2
== END 2023-06-25 12:22 | disposition home or self-care (01) ==
PROVIDERS: PCP Family Medicine; Visit Provider Nurse Practitioner
DX: K31.84 Gastroparesis (principal); K21.9 Gastro-esophageal reflux disease without esophagitis; K58.2 Mixed irritable bowel syndrome
CPT/HCPCS: 99213

== ENCOUNTER → 2023-06-25 11:51 | Outpatient (BNVA) | payer MEDICAID, SELFPAY | PROVIDERS: PCP Family Medicine; Visit Provider Nurse Practitioner | DX: K31.84 Gastroparesis (principal); K21.9 Gastro-esophageal reflux disease without esophagitis; K58.2 Mixed irritable bowel syndrome; Z79.899 Other long term (current) drug therapy | CPT/HCPCS: 99212 ==

== ENCOUNTER 2023-12-15 10:58 | Outpatient (REF) | payer OTHER, SELFPAY ==
[2023-12-15 13:35] LABS: Basophils Percent Auto 0.8 % (0-2); Eosinophils Absolute Auto 0.1 X10*3/uL (0.0-0.4); Eosinophils Percent Auto 3.6 % (0-4); Hematocrit 38.9 % (37.0-47.0); Hemoglobin 12.7 g/dl (12.0-16.0); Imm Gran Abs Auto 0.01 X10*3/uL (0.00-0.03); Imm Gran Pct Auto 0.4 % (0.0-0.4); Lymphocytes Absolute Auto 1.3 X10*3/uL (1.2-4.9); Lymphocytes Percent Auto 49.8 % (20-40); MANUAL DIFF FLAG SCAN; Mean Corpuscular HGB Conc 32.6 g/dl (31.0-35.0); Mean Corpuscular Hemoglobin 28.7 pg (27.0-33.0); Mean Platelet Volume 9.8 fL (9.4-12.3); Monocytes Absolute Auto 0.2 X10*3/uL (0.1-1.2); Monocytes Percent Auto 8.8 % (2-11); Neutrophils Absolute Auto 0.9 x10*3/uL (2.0-8.3); Neutrophils Percent Auto 36.6 % (45-73); Platelet Count 180 X10*3/uL (160-400); Red Blood Count 4.42 X10*6/uL (4.20-5.50); SCAN SMEAR FLAG 1
[2023-12-15 13:36] LABS: White Blood Count 2.5 X10*3/uL (4.8-10.8)
[2023-12-15 13:49] LABS: Alanine Aminotransferase 49 U/L (0-31); Albumin Level 3.9 g/dL (3.5-5.0); Alkaline Phosphatase 59 U/L (39-117); Anion Gap 9 (12-20); Aspartate Amino Transferase 34 U/L (5-31); Bilirubin Total 0.2 mg/dL (0.0-1.0); Blood Urea Nitrogen 18 mg/dL (9-16); Calcium 9.5 mg/dL (8.4-10.2); Carbon Dioxide 30 mmol/L (22-29); Chloride 107 mmol/L (96-108); Cholesterol 113 mg/dL (<200); Estimated Glomerular Filt Rate > 60; Glucose Random 161 mg/dL (60-115); HDL Cholesterol 53 mg/dL (>40); LDL Cholesterol Calculated 51 mg/dL (<100); Sodium 142 mmol/L (135-145); Total Protein 6.9 g/dL (6.5-8.0); Triglycerides 45 mg/dL (<150)
[2023-12-15 13:58] LABS: Reflex LDLD? No
[2023-12-15 14:06] LABS: TSH reflex Free T4 2.91 uIU/mL (0.32-4.0)
[2023-12-15 14:12] LABS: SLIDE REVIEW VERIFIED
[2023-12-15 14:13] LABS: Creatinine Urine 75.29 mg/dL; Microalbum/Creatinine Ratio Ur 27.8 ug/mg cr (<30)
[2023-12-15 14:15] LABS: Folate 12.9 ng/mL (> or = 4.0); Vitamin B12 402 pg/mL (200-900)
== END 2023-12-15 10:59 | disposition home or self-care (01) ==
LOC: HO.HHCL 10:58
PROVIDERS: Visit Provider Family Medicine
DX: E11.65 Type 2 diabetes mellitus with hyperglycemia (principal); Z79.4 Long term (current) use of insulin; R63.4 Abnormal weight loss; E78.5 Hyperlipidemia, unspecified; I10 Essential (primary) hypertension
CPT/HCPCS: 36415; 80053; 80061; 82043; 82570; 82607; 82746; 84443; 85025

== ENCOUNTER 2023-12-17 12:00 | Outpatient (REF) | payer OTHER, SELFPAY ==
[2023-12-17 13:22] LABS: MANUAL DIFF FLAG NO
[2023-12-17 13:35] LABS: Basophils Percent Auto 0.5 % (0-2); Eosinophils Absolute Auto 0.1 X10*3/uL (0.0-0.4); Eosinophils Percent Auto 2.4 % (0-4); Hematocrit 38.4 % (37.0-47.0); Imm Gran Abs Auto 0.01 X10*3/uL (0.00-0.03); Imm Gran Pct Auto 0.3 % (0.0-0.4); Lymphocytes Absolute Auto 1.3 X10*3/uL (1.2-4.9); Lymphocytes Percent Auto 33.4 % (20-40); Mean Corpuscular HGB Conc 33.9 g/dl (31.0-35.0); Mean Corpuscular Hemoglobin 29.1 pg (27.0-33.0); Mean Corpuscular Volume 85.9 fL (80.0-98.0); Mean Platelet Volume 9.7 fL (9.4-12.3); Monocytes Absolute Auto 0.3 X10*3/uL (0.1-1.2); Neutrophils Absolute Auto 2.1 x10*3/uL (2.0-8.3); Neutrophils Percent Auto 55.4 % (45-73); Platelet Count 209 X10*3/uL (160-400); Red Blood Count 4.47 X10*6/uL (4.20-5.50); Red Cell Distribution Width 11.9 % (11.0-16.0); White Blood Count 3.7 X10*3/uL (4.8-10.8)
== END 2023-12-17 12:01 | disposition home or self-care (01) ==
LOC: HO.HHCL 12:00
PROVIDERS: Visit Provider Family Medicine
DX: D72.819 Decreased white blood cell count, unspecified (principal)
CPT/HCPCS: 36415; 85025

== ENCOUNTER 2024-01-25 09:19 | Outpatient (REF) | payer OTHER, SELFPAY ==
--- NOTE | 2024-01-25 09:25 | EMG_ITS ---
FINDINGS: Bilateral median and ulnar motor and sensory studies were performed. Bilateral radial sensory and median and lateral antecubital brachial sensory studies were performed and paraspinal muscles were tested with a needle. IMPRESSION: 1. [id number] bilateral median neuropathy across carpal tunnel. 2. Mild left ulnar neuropathy across cubital tunnel. MD JUSTIN Boggs/LEONEL / [id number]
== END 2024-01-25 09:20 | disposition home or self-care (01) ==
LOC: HO.NEURO 09:19
PROVIDERS: PCP Family Medicine; Visit Provider Family Medicine
DX: R20.0 Anesthesia of skin (principal)
CPT/HCPCS: 95886; 95913

== ENCOUNTER 2024-03-15 10:51 | Outpatient (REF) | payer OTHER, SELFPAY ==
--- NOTE | ~2024-03-15 | MM_ITS ---
EXAMINATION: MM DIAGNOSTIC DIGITAL BREAST TOMOSYNTHESIS, BILATERAL Limited right ultrasound. CLINICAL INFORMATION: Palpable lump right axillary area far lateral. COMPARISON: Mammography: Comparison is made with relevant prior exams. TECHNIQUE: Digital breast mammography with tomosynthesis is performed in both the craniocaudal and mediolateral oblique views along with computer-aided detection (CAD). Limited right ultrasound. FINDINGS: The breasts are heterogeneously dense, which may obscure small masses (ACR BI-RADS breast composition Category c). There are no significant masses, abnormal calcifications, or other abnormalities. The patient's palpable area is too far lateral to be imaged on mammography. Targeted color Doppler ultrasound scanning in the area of the patient's palpable lump in the right axilla demonstrates a hypoechoic subcutaneous solid mass at o'clock 20 cm from the nipple in the axilla measuring approximately 15 x 13 x 8 mm. Results are provided to the patient at time of visit by the technologist. MM/MM tomosynthesis diagnostic BI IMPRESSION: Hypoechoic subdermal solid mass in the right axilla. Recommend histology with ultrasound-guided core needle biopsy at this time. The findings and recommendations were discussed with the patient the procedure will be scheduled. ASSESSMENT: BI-RADS BI-RADS 4 - Suspicious finding RECOMMENDATION: Biopsy recommended This patient's information was entered into a reminder system with a target due date for their next mammogram. Electronically signed by: Nereyda Carvajal DO 03/15/2024 12:26 PM [facility]
--- OUTSIDE RECORDS SUMMARY | 2024-03-15 12:17 | XMS_ITS | Encounter Summary ---
Author Organization [employer] Address [address] [place] [address] Care Team Providers Care Cotton Bag Sewer Name Role Phone Neyda Chacko MD Primary Care Provider [phone] Encounter Details Date Type Department Care Team (Late st Contact Info) Description 07/14/2023 Orders Only [facility] MEDICINE [address] [place], [place] [phone] Neyda Chacko MD [address] [place], [place] [phone] Social History Tobacco Use Types Packs/Day Years Used Date Smoking Tobacco: Former Cigarettes Passive Smoke Exposure: Never Smokeless Tobacco: Never Alcohol Use Standard Drinks/Week Comments Defer 0 (1 standard drink = 0.6 oz pur e alcohol) Depression Answer Date Recorded Patient Health Questionnaire-9 Score 7 06/15/2023 Patient Health Questionnaire-9 Score 7 06/15/2023 Last PHQ-9: Questionnaire Data Not on file 0 06/15/2023 Housing Stability Answer Date Recorded What is your housing situation today? I have deandre gardiner 06/15/[address] you li ve. Do you have problems with any of the following? None of the above 06/15/2023 Food Insecurity Answer Date Recorded Within the past 12 months, y ou worried that your food would run out before you got money to buy more: Never True 06/15/2023 Within the past 12 months,th e food you bought just didn't last and you didn't have enough money to get more: Never True Transportation Answer Date Recorded In the past 12 months, has l ack of transportation kept you from medical appts, meetings, work or from getting things needed for daily living? No 06/15/2023 Utilities Answer Date Recorded In the past 12 months, has t he electric, gas, oil or water company threatened to shut off services in your home? No 06/15/2023 Depression Answer Date Recorded Patient Health Questionnaire-2 Score 2 06/15/2023 Comments Unknown Sex and Gender Information Value Date Recorded Sex Assigned at Female 12/22/2021 10:14 AM EDT Legal Sex Female 10:14 AM EDT Gender Identity Female 12/22/2021 10:14 AM EDT Sexual Orientation Straight 12/22/2021 10 :14 AM EDT documented as of this encounter Plan of Treatment Upcoming Encounters Date Type Department Care Team (Late st Contact Info) Description 03/30/2024 11:00 AM EST Office Visit [facility] MEDICINE [address] [phone] Neyda Chacko MD [address] [place] [phone] documented as of this encounter Visit Diagnoses Not on filedocumented in this encounter Additional Health Concerns Assessment Noted Time PHQ-9 Depression Total Score: 7 06/15/19 24 10:57 AM EDT documented as of this encounter Care Teams Cotton Bag Sewer Relationship Specialty Start Date End Date Neyda Chacko MD [address] [place] [id number] PCP - General Family Medicine 02/22/18 documented as of this encounter
--- OUTSIDE RECORDS SUMMARY | 2024-03-15 12:17 | XMS_ITS | Encounter Summary ---
Author Organization [employer] Address [address] [facility] [address] [place] [address] Care Team Providers Care Assignment Desk Editor Name Role Phone Neyda Chacko MD Primary Care Provider [phone] Reason for Visit * Reason Comments Med Refill Encounter Details Date Type Department Care Team (Late st Contact Info) Description 02/23/2024 Refill [facility] MEDICINE [address] [place], [place] [phone] Neyda Chacko MD [address] [place], [place] [phone] Peripheral arterial occlusive disease (CMS/HCC) Social History Tobacco Use Types Packs/Day Years Used Date Smoking Tobacco: Former Cigarettes Passive Smoke Exposure: Never Smokeless Tobacco: Never Alcohol Use Standard Drinks/Week Comments Defer 0 (1 standard drink = 0.6 oz pur e alcohol) Alcohol Answer Date Recorded Frequency of Alcohol Consumption Not on file 12/21/2023 Average Number of Drinks Not on file 024 Frequency of Binge Drinking Not on file 11/23 Score 0 12/21/2023 Depression Answer Date Recorded Patient Health Questionnaire-9 [...] Description 03/30/2024 11:00 AM EST Office Visit [facility] MEDICINE [address] [place] [phone] Neyda Chacko MD [address] [place] [phone] documented as of this encounter Visit Diagnoses Diagnosis Peripheral arterial occlusive disease (CMS/HCC) Unspecified peripheral vascular disease documented in this encounter Additional Health Concerns Assessment Noted Time PHQ-9 Depression Total Score: 7 06/15/19 24 10:57 AM EDT documented as of this encounter Care Teams Assignment Desk Editor Relationship Specialty Start Date End Date Neyda Chacko MD [address] [place] [id number] PCP - General Family Medicine 02/22/18 documented as of this encounter
--- OUTSIDE RECORDS SUMMARY | 2024-03-15 12:17 | XMS_ITS | Encounter Summary ---
Author Organization [employer] Address [address] [facility] [address] [place] [address] Care Team Providers Care Barrel Finisher Name Role Phone Neyda Chacko MD Primary Care Provider [phone] Reason for Visit * Reason Onset Date Comments Med Refill 10/27/2023 Encounter Details Date Type Department Care Team (Late st Contact Info) Description 10/27/2023 Telephone [facility] MEDICINE [address] [place], [place] [phone] Neyda Chacko MD [address] [place], [place] [phone] Med Refill Social History Tobacco Use Types Packs/Day Years [...] AM EDT documented as of this encounter Miscellaneous Notes * Telephone Encounter - Rosalia Gomez LPN - 10/27/2023 2:05 PM EDT Medication is prescribed by Rusty Grey. * Telephone Encounter - Horace Khan - 10/27/2023 1:58 PM EDT TC from pt requesting medication refill. Medications needing refill : Ozempic, 2 MG/DOSE, 8 MG/3ML solution pen-injector To be sent to: [facility] - [place], [place] - [address] [facility] documented in this encounter Plan of Treatment Upcoming Encounters Date Type Department Care Team (Late st Contact Info) Description 03/30/2024 11:00 AM EST Office Visit [facility] MED[facility]INE [address] [place] [address] Neyda Chacko MD [address] [facility] [place] [address] documented as of this encounter Visit Diagnoses Not on filedocumented in this encounter Additional Health Concerns Assessment Noted Time PHQ-9 Depression Total Score: 7 06/15/19 24 10:57 AM EDT documented as of this encounter Care Teams Barrel Finisher Relationship Specialty Start Date End Date Neyda Chacko MD [address] [place] [address] PCP - General Family Medicine 02/22/18 documented as of this encounter
--- OUTSIDE RECORDS SUMMARY | 2024-03-15 12:17 | XMS_ITS | Clinical Summary ---
Author Organization [employer] Address [address] [facility] [address] [place] [address] Care Team Providers Care Oracle Ebs Architect Name Role Phone Neyda Chacko MD Primary Care Provider [phone] Allergies Active Allergy Reactions Criticality Noted Date Comments Pioglitazone 03/14/2010 Other reaction(s): unspecified Medications Blood Glucose Monitoring Suppl ([employer] [place] Lite) w/Device kit USE DIRECTED Active busPIRone (Buspar) 30 MG tablet TAKE 1 TABLET BY MOUTH TWICE DAILY IN THE MORNING AND AT BEDTIME Active Baqsimi Two Pack 3 MG/DOSE nasal powder USE 1 SPRAY (3MG) IN ONE NOSTRIL FOR A PATIENT WITH SEVERE HYPOGLYCEMIA WHO IS NOT RESPONSIVE AND UNABLE SELF-TREAT WITH GLUCOSE. AFTERWARDS TURN ON SIDE. MAY REPEAT IN 15MINUTES IF PATIENT DOES NOT RESPOND. Active metoclopramide (Reglan) 10 MG tablet Take 1 tablet by mouth every 8 (eight) hours. Active venlafaxine XR (Effexor XR) 150 MG 24 hr capsule Take 150 mg by mouth in the morning. Active zolpidem (Ambien) 10 MG tablet Take 10 mg by mouth if needed at bedtime. Active Continuous Blood Gluc Draw Fire Operator (FreeStyle Joelle 2 [place]) device Use as directed 1 each 1 Active Continuous Blood Gluc Sensor (FreeStyle Joelle 2 Sensor) misc Use as directed 2 each 11 Active pantoprazole (ProtoNix) 40 MG EC tablet TAKE 1 TABLET BY MOUTH TWICE A DAY Active Senna-Time 8.6 MG tablet TAKE 2 TABLETS BY MOUTH EVERY DAY AT BEDTIME NEEDED FOR CONSTIPATION Active Carafate 1 GM/10ML suspension TAKE 20ML BY MOUTH EVERY DAY Active Blood Pressure Monitor kitIndications: Essential hypertension Use to check blood pressure daily as directed 1 kit Active Insulin Syringe-Needle U-100 (BD Veo Insulin Syringe U/F) 31G X 15/64 0.5 ML miscIndications :Type 2 diabetes mellitus with hyperglycemia, with long-term current use of insulin ([facility]) USE DIRECTED 3 TO 4 TIMES DAILY WITH HUMALOG 120 each Active ibuprofen 600 MG tablet Take 1 tablet (600 mg) by mouth every 6 (six) hours if needed for mild pain for up to 20 doses. 20 tablet Active lisinopril-hydr oCHLOROthiazide 20-12.5 MG tablet TAKE 2 TABLETS BY MOUTH ONCE DAILY AT NOON 180 tablet 3 Active acetaminophen (Tylenol) 500 MG tablet Take 1 tablet (500 mg) by mouth every 6 (six) hours if needed for mild pain for up to 20 doses. 20 tablet Active Insulin Lispro 100 UNIT/ML solution Inject 12 Units under the skin before breakfast, before lunch, and before evening meal. INJECT 8-12 UNITS SUBCUTANEOUSLY BEFORE MEALS. 10 mL Active Tresiba FlexTouch 200 UNIT/ML injection Administer 70 units subcutaneously daily 3 mL Active Easy Touch Lancets 33G/Twist miscIndications :Type 2 diabetes mellitus with hyperglycemia, with long-term current use of insulin ([facility]) USE UP TO FIVE TIMES DAILY TO TEST BLOOD SUGAR 100 each Active FREESTYLE LITE test stripIndication s:Type 2 diabetes mellitus with hyperglycemia, with long-term current use of insulin ([facility]) USE TO TEST 5 TIMES DAILY 100 each Active glucose blood (FreeStyle Precision [place] Test) test strip Use to test blood sugar up to 5 times daily, as directed 100 each Active cilostazol (Pletal) 50 MG tabletIndicatio ns:Peripheral arterial occlusive disease (CMS/HCC) TAKE 1 TABLET BY MOUTH TWICE DAILY IN THE MORNING AND IN THE EVENING 30 minutos antes o 2 horas despues del desayuno y la coke drawer 60 tablet 5 024 Active Pentips 32G X 4 MM misc USE ONCE DAILY 100 each 6 024 Active metoprolol tartrate (Lopressor) 50 MG tabletIndicatio ns:Primary hypertension TAKE 1 TABLET BY MOUTH TWICE DAILY IN THE MORNING AND IN THE EVENING WITH MEALS 180 tablet 3 024 Active rosuvastatin (Crestor) 40 MG tabletIndicatio ns:Dyslipidemia TAKE 1 TABLET BY MOUTH AT BEDTIME 90 tablet 3 024 Active D3 Super Strength 50 MCG (2000 UT) capsuleIndicati ons:Vitamin D deficiency TAKE 1 CAPSULE BY MOUTH EVERY MORNING 90 capsule 3 024 Active metFORMIN XR (Glucophage-XR) 500 MG 24 hr tablet TAKE 2 TABLETS BY MOUTH TWICE DAILY IN THE MORNING AND EVENING 360 tablet 3 024 Active Jardiance 25 MGIndications:T ype 2 diabetes mellitus with hyperglycemia, with long-term current use of insulin (CMS/HCC) TAKE 1 TABLET BY MOUTH EVERY MORNING 90 tablet 3 024 Active traMADol (Ultram) 50 MG tabletIndicatio ns:Chronic low back pain, unspecified back pain laterality, unspecified whether sciatica present TAKE 1 TABLET BY MOUTH ONCE DAILY NEEDED FOR SEVERE PAIN 7 tablet 024 Active Aspirin Low Dose 81 MG EC tabletIndicatio ns:Peripheral arterial occlusive disease (CMS/HCC) TAKE 1 TABLET BY MOUTH EVERY EVENING 90 tablet 3 025 Active Ferrous Sulfate (iron) 325 (65 Fe) MG tabletIndicatio ns:Iron deficiency anemia, unspecified iron deficiency anemia type TAKE 1 TABLET BY MOUTH EVERY MORNING 180 tablet 3 025 Active Semaglutide, 2 MG/DOSE, (Ozempic, 2 MG/DOSE,) 8 MG/3ML solution pen-injectorInd ications:Type 2 diabetes mellitus with hyperglycemia, with long-term current use of insulin (CMS/HCC) Inject 0.75 mL (2 mg) under the skin 1 (one) time per week. IN THE ABDOMEN, THIGHS OR UPPER ARM. ROTATE INJECTION SITES. 3 mL 1 025 Active ferrous sulfate (FeroSul) 325 (65 Fe) MG tabletIndicatio ns:Iron deficiency anemia, unspecified iron deficiency anemia type TAKE 1 TABLET BY MOUTH EVERY MORNING 180 tablet 3 023 2024 Discontinued Aspirin Adult Low Strength 81 MG EC tabletIndicatio ns:Peripheral arterial occlusive disease (CMS/HCC) TAKE 1 TABLET BY MOUTH EVERY EVENING 90 tablet 3 024 2024 Discontinued Ozempic, 2 MG/DOSE, 8 MG/3ML solution pen-injectorInd ications:Type 2 diabetes mellitus with hyperglycemia, with long-term current use of insulin (CMS/HCC) Inject 2 MG SUBCUTANEOUSLY EVERY 7 DAYS IN THE ABDOMEN, THIGHS OR UPPER ARM. ROTATE INJECTION SITES. 3 mL 024 2024 Discontinued(R eorder (will not trigger notification to Pharmacy)) Active Problems Problem Noted Date Diagnosed Date Leukopenia 12/31/2023 Assessment & Plan (12/31/2023 6:11 AM EST): - 12/15/23 2.5K; 12/21/23 3.7K - possibly due to medication - since there was an improvement, will monitor at this time Bradycardia 09/20/2023 Assessment & Plan (12/21/2023 10:24 PM EDT): - asymptomatic - adjusting medication - consider further increase in BB if symptomatic Assessment & Plan (09/20/2023 12:10 PM EDT): - asymptomatic - adjusting medication - consider further increase in BB if symptomatic Partially edentulous maxilla 06/23/2023 Sarcopenia 06/20/2023 Left foot pain 06/15/2023 Assessment & Plan (06/15/2023 12:35 PM EDT): - with swelling, will check with XR and uric acid - ice, continue acetaminophen Weight loss 06/15/2023 Assessment & Plan (12/21/2023 10:26 PM EDT): - most likely due to medications and depression - continue nutritional supplement Assessment & Plan (09/20/2023 12:09 PM EDT): - most likely due to medications and depression - continue nutritional supplement Assessment & Plan (06/15/2023 12:36 PM EDT): - most likely due to medications - will prescribe nutritional supplements Dental abscess 06/01/2023 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 Overweight (BMI 25.0-29.9) 10/19/2022 Assessment & Plan (10/19/2022 5:56 AM EDT): - she has lost weight, likely due to GLP-1 agonist and SGLT-2 inhibitor - encouraged to eat well-balanced diet - consider prescribing Boost Diabetic since pt has poor appetite and PO intake Chronic back pain 10/19/2022 Assessment & Plan (10/19/2022 6:02 AM EDT): - continue judicious use of tramadol for severe pain Gastroparesis 05/24/2022 Assessment & Plan (09/20/2023 12:04 PM EDT): -on GLP-1 agonist for DM -followed by [facility] GI, last seen in June 2023 -continue metoclopramide 10 mg tid, with caution due to its side effect Assessment & Plan (05/24/2022 3:57 PM EDT): -on GLP-1 agonist for DM -seen by GI on 03/19/22, restarted on metoclopramide -continue metoclopramide 10 mg tid Peripheral arterial occlusive disease 08/13/2016 Assessment & Plan (06/15/2023 11:00 AM EDT): -[facility] -most recent PAWAN doppler on 08/13/21, moderate stenosis in b/l SFA and popliteal arteries -continue working on risk factor management -pt has been on cilostazol since 2016 Assessment & Plan (10/19/2022 6:00 AM EDT): -Followed by [facility] provider -most recent PAWAN doppler on 08/13/21, moderate stenosis in b/l SFA and popliteal arteries -continue working on risk factor management -pt has been on cilostazol since 2016 Assessment & Plan (05/24/2022 3:54 PM EDT): -Followed by [facility] provider -most recent PAWAN doppler on 08/13/21, moderate stenosis in b/l SFA and popliteal arteries -continue working on risk factor management -pt has been on cilostazol since 2016 Assessment & Plan (03/15/2022 5:49 PM EST): -Followed by [facility] provider -most recent PAWAN doppler on 08/13/21, moderate stenosis in b/l SFA and popliteal arteries -continue working on risk factor management -pt has been on cilostazol since 2016 Hemorrhoids 07/01/2015 Chronic recurrent major depressive disorder 02/23 Assessment & Plan (06/15/2023 11:01 AM EDT): [facility] provider: Olayinka Cortez Counseling Current medications: venlafaxine; buspirone; hydroxyzine Continue following recommendation by [facility] providers Patient lost her in Jan 2020 due to COVID and has been grieving. Patient is currently with her family and seems to have good support. Continue current [facility]. Assessment & Plan (10/19/2022 6:03 AM EDT): [facility] provider: Olayinka Cortez Counseling Current medications: venlafaxine; buspirone; hydroxyzine Continue following recommendation by S providers Patient lost her in Jan 2020 due to COVID and has been grieving. Patient is currently with her family and seems to have good support. Continue current [facility]. Assessment & Plan (05/24/2022 4:01 PM EDT): [facility] provider: Olayinka Cortez Counseling Current medications: venlafaxine; buspirone; hydroxyzine Continue following recommendation by S providers Patient lost her in Jan 2020 due to COVID and has been grieving. Patient is currently with her family and seems to have good support. Continue current [facility]. Assessment & Plan (03/15/2022 5:50 PM EST): [facility] provider: Olayinka Joiner Current medications: venlafaxine; buspirone; hydroxyzine Continue following recommendation by [facility] providers Patient lost her in Jan 2020 due to COVID and has been grieving. Patient is currently with her family and seems to have good support. Continue current S. Gastroesophageal reflux disease 03/19/2015 Assessment & Plan (05/24/2022 3:58 PM EDT): -last seen by GI on 03/19/22 -advised to discontinue sucralfate -continue omeprazole 40 mg bid Obstructive sleep apnea syndrome 03/19/2015 Assessment & Plan (10/19/2022 6:00 AM EDT): - Pt does not want to wear CPAP Chronic anemia 12/19/2014 Assessment & Plan (12/21/2023 10:26 PM EDT): - check lab Assessment & Plan (09/20/2023 12:08 PM EDT): - check lab Essential hypertension 12/19/2014 Assessment & Plan (12/31/2023 6:07 AM EST): -Goal BP < 140/90 per JNC-8 and <130/80 per ACC/AHA -BP had been low lately, especially after weight loss with GLP-1RA. Adjusted BB dose in May 2023. -Followed by [facility], last seen on 09/17/22 -Continue working on lifestyle modifications -Continue monitoring BP at home -Continue Zestoretic 20-12.5 mg TWO dabs daily -Continue metoprolol tartrate 50 mg -Treatment Hx: discontinued furosemide for HTN -last echocardiogram: August 2008, EF 60-65%, mildly dilated LA -Referred patient for CDTM to de-prescribing and diabetes mellitus management. -Follow up in 3 mo or sooner prn Assessment & Plan (09/20/2023 12:03 PM EDT): -Goal BP < 140/90 per JNC-8 and <130/80 per ACC/AHA -BP had been low lately, especially after weight loss with GLP-1RA. Adjusted BB dose in May 2023. -[facility], last seen on 09/17/22 -Continue working on lifestyle modifications -Continue monitoring BP at home -Continue Zestoretic 20-12.5 mg TWO dabs daily -Continue metoprolol tartrate 50 mg -Continue furosemide 20 mg bid -last echocardiogram: August 2008, EF 60-65%, mildly dilated LA -Referred patient for CDTM to de-prescribing and diabetes mellitus management. -Follow up in 3 mo or sooner prn Assessment & Plan (06/15/2023 12:32 PM EDT): -Goal BP < 140/90 per JNC-8 and <130/80 per ACC/AHA -BP slightly low. Her breaker oiler has suggested to taper down her diuretics since she had GSV ablation. -[facility], last seen on 09/17/22 -Continue current lifestyle modification and medications. -Medications: Zestoretic 20 mg -12.5 mg Two tabs PO daily; metoprolol tartrate 100 mg bid; Lasix 20mg BID - will decrease metoprolol to 50 mg BID -last echocardiogram: August 2008, EF 60-65%, mildly dilated LA -Encouraged to continue checking home BP -Since she has lost weight and is on SGLT-2 inhibitor, concern for hypotension -Advised to monitor BP closely, and not to take furosemide if she is hypotensive; will refer to CDTM for de-prescribing and HTN management -Follow up in 3 mo or sooner prn Assessment & Plan (10/19/2022 6:00 AM EDT): -Goal BP < 140/90 per JNC-8 and <130/80 per ACC/AHA -BP within acceptable range. Her breaker oiler has suggested to taper down her diuretics since she had GSV ablation. -Followed by [facility], last seen on 09/17/22 -Continue current lifestyle modification and medications. -Medications: Zestoretic 20 mg -12.5 mg Two tabs PO daily; metoprolol tartrate 100 mg bid; Lasix 20mg BID -last echocardiogram: August 2008, EF 60-65%, mildly dilated LA -Encouraged to continue checking home BP -Since she has lost weight and is on SGLT-2 inhibitor, concern for hypotension -Advised to monitor BP closely, and not to take furosemide if she is hypotensive; will refer to CDTM for de-prescribing and HTN management -Follow up in 3 mo or sooner prn Assessment & Plan (05/24/2022 3:54 PM EDT): -Goal BP < 140/90 per JNC-8 and <130/80 per ACC/AHA -BP within acceptable range. Her breaker oiler has suggested to taper down her diuretics since she had GSV ablation. -[facility], last seen on 12/10/21 -Continue current lifestyle modification and medications. -Medications: Zestoretic 20 mg -12.5 mg Two tabs PO daily; metoprolol tartrate 100 mg bid; Lasix 20mg BID -last echocardiogram: August 2008, EF 60-65%, mildly dilated LA -Encouraged to continue checking home BP Assessment & Plan (03/15/2022 5:45 PM EST): -Goal BP < 140/90 per JNC-8 and <130/80 per ACC/AHA -BP within acceptable range. Her breaker oiler has suggested to taper down her diuretics since she had GSV ablation. -[facility] by [facility], last seen on 12/10/21 -Continue current lifestyle modification and medications. 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 -Last venous US on 05/23/20 -Continue current management Assessment & Plan (10/19/2022 6:01 AM EDT): s/p laser ablation of right GSV in 11/2013 and left GSV in 12/2013. -Last venous US on 05/23/20 -Continue current management Assessment & Plan (05/24/2022 3:54 PM EDT): s/p laser ablation of right GSV in 11/2013 and left GSV in 12/2013. -Last venous US on 05/23/20 -Continue current management Assessment & Plan (03/15/2022 5:49 PM EST): s/p laser ablation of right GSV in 11/2013 and left GSV in 12/2013. -Last venous US on 05/23/20 -Continue current management Allergic rhinitis 03/22/2013 Constipation 10/07/2011 Type 2 diabetes mellitus 10/07/2011 Assessment & Plan (12/21/2023 10:26 PM EDT): -A1C 7.9% on 12/21/23 -Previously following with [facility] endocrinology, discharged in May 2023 due to stability -Continue Tresiba 70 units qAM (discrepancy from special effects technician's note) -Continue Humalog 10 units before breakfast, 8 with lunch, 25 with dinner, 5-10 units with snacks. Last Dr. Grey's recommendation was 8-12 units with PO intake, 4 times per day. -Continue Ozempic 2 mg weekly -Continue Metformin 1g bid -Continue Jardiance 25 mg daily -Continue working on lifestyle modifications. -Last eye exam: 12/[address] Siegel, Hx left vitreous hemorrhage due to proliferative diabetic retinopathy; most recent exam showed no diabetic retinopathy -Last comprehensive foot exam: 10/07/22 Tinea pedis. Plantar wart. Peripheral neuropathy. She has diabetic footwear. -Last FLP: 12/15/23 TC 113 ; TG 45 ; HDL 53 ; LDL 51. -Last microalbumin test: 12/15/23 UACR 27.8, early mild microalbuminuria Assessment & Plan (09/20/2023 12:07 PM EDT): -A1C 7.2% on 06/15/23, improving -Previously following with [facility] endocrinology, discharged in May 2023 due to stability -Continue Tresiba 70 units qAM (discrepancy from special effects technician's note) -Continue Humalog 10 units before breakfast, 8 with lunch, 25 with dinner, 5-10 units with snacks. Last Dr. Grey's recommendation was 8-12 units with PO intake, 4 times per day. -Continue Ozempic 2 mg weekly -Continue Metformin 1g bid -Continue Jardiance 25 mg daily -Continue working on lifestyle modifications. -Last eye exam: 12/[address] Siegel, Hx left vitreous hemorrhage due to proliferative diabetic retinopathy; most recent exam showed no diabetic retinopathy -Last comprehensive foot exam: 10/07/22 Tinea pedis. Plantar wart. Peripheral neuropathy. She has diabetic footwear. -Last FLP: 01/06/22 TC 108 ; TG 74 ; HDL 44 ; LDL 49. -Last microalbumin test: 01/06/22 UACR 38, early mild microalbuminuria Assessment & Plan (06/15/2023 12:33 PM EDT): -A1C 7.2% on 06/15/23, improving -Dialysis Rn: [facility], last seen on Sep 2022 -Continue Tresiba 70 units qAM (discrepancy from special effects technician's note) -Continue Humalog 10 units before breakfast, 8 with lunch, 25 with dinner, 5-10 units with snacks. Last Dr. Grey's recommendation was 8-12 units with PO intake, 4 times per day. -Continue Ozempic 2 mg weekly -Continue Metformin 1g bid -Continue Jardiance 25 mg daily -Continue working on lifestyle modifications. Last eye exam: 12/18/[address] Siegel, left vitreous hemorrhage due to proliferative diabetic retinopathy; pt reports more recent appt Last comprehensive foot exam: 10/07/22 Tinea pedis. Plantar wart. Peripheral neuropathy. She has diabetic footwear. Last FLP: 01/06/22 TC 108 ; TG 74 ; HDL 44 ; LDL 49. Last microalbumin test: 01/06/22 UACR 38, early mild microalbuminuria Last dental exam: ? Immunizations: up to date Assessment & Plan (10/19/2022 6:05 AM EDT): -A1C 7.8% on 10/07/22, improved, yet with hypoglycemia. 8.6% in Feb 2022 -Dialysis Rn: [facility], last seen on Sep 2022 -Continue Tresiba 70 units qAM (discrepancy from special effects technician's note) -Continue Humalog 10 units before breakfast, 8 with lunch, 25 with dinner, 5-10 units with snacks. Last Dr. Grey's recommendation was 8-12 units with PO intake, 4 times per day. -Continue Ozempic 2 mg weekly -Continue Metformin 1g bid -Continue Jardiance 25 mg daily -Continue working on lifestyle modifications. Last eye exam: 12/18/[address] Siegel, left vitreous hemorrhage due to proliferative diabetic retinopathy; pt reports more recent appt Last comprehensive foot exam: 10/07/22 Tinea pedis. Plantar wart. Peripheral neuropathy. She has diabetic footwear. Last FLP: 01/06/22 TC 108 ; TG 74 ; HDL 44 ; LDL 49. Last microalbumin test: 01/06/22 UACR 38, early mild microalbuminuria Last dental exam: ? Immunizations: up to date Assessment & Plan (05/24/2022 4:00 PM EDT): -A1C 8.6% today 03/11/22, improving -Dialysis Rn: [facility], last seen on 02/13/22 -Continue Tresiba 70 units qAM (discrepancy from special effects technician's note) -Continue Humalog 8 units before breakfast, 10 with lunch, 15 with dinner, 5-10 units with snacks. Last Dr. Grey's recommendation was 8-12 units with PO intake, 4 times per day. -Continue Ozempic 2 mg weekly -Continue Metformin 1g bid -Continue Jardiance 25 mg daily -Continue working on lifestyle modifications. Last eye exam: 12/18/[address] Siegel, left vitreous hemorrhage due to proliferative diabetic retionpathy Last comprehensive foot exam: 07/01/20 Tinea pedis. Plantar wart. Peripheral neuropathy. She has diabetic footwear. Last FLP: 01/06/22 TC 108 ; TG 74 ; HDL 44 ; LDL 49. Last microalbumin test: 01/06/22 UACR 38, early mild microalbuminuria Last dental exam: ? Immunizations: up to date Assessment & Plan (03/15/2022 5:48 PM EST): -A1C 8.6% today 03/11/22, improving -Dialysis Rn: [facility], last seen on 02/13/22 -Continue Tresiba 70 units qAM (discrepancy from special effects technician's note) -Continue Humalog 8 units before breakfast, 10 with lunch, 15 with dinner, 5-10 units with snacks. Last Dr. Grey's recommendation was 8-12 units with PO intake, 4 times per day. -Continue Ozempic 2 mg weekly -Continue Metformin 1g bid -Continue Jardiance 25 mg daily -Continue working on lifestyle modifications. Last eye exam: 12/18/[address] Siegel, left vitreous hemorrhage due to proliferative diabetic retionpathy Last comprehensive foot exam: 07/01/20 Tinea pedis. Plantar wart. Peripheral neuropathy. She has diabetic footwear. Last FLP: 01/06/22 TC 108 ; TG 74 ; HDL 44 ; LDL 49. Last microalbumin test: 01/06/22 UACR 38, early mild microalbuminuria Last dental exam: ? Immunizations: up to date Dyslipidemia 10/07/2011 Assessment & Plan (12/31/2023 6:12 AM EST): - most recent lipid profile 12/15/23 - current medication: Rosuvastatin 40 mg at bedtime - continue working on lifestyle modifications - continue current medication Assessment & Plan (09/20/2023 12:08 PM EDT): - most recent lipid profile 10/14 - current medication: Rosuvastatin 40 mg at bedtime - continue working on lifestyle modifications - continue current medication Assessment & Plan (06/15/2023 12:34 PM EDT): - most recent lipid profile 10/14 - current medication: Rosuvastatin 40 mg at bedtime - continue working on lifestyle modifications - continue current medication Assessment & Plan (05/24/2022 4:02 PM EDT): - 01/06/22 TC 108 ; TG 74 ; HDL 44 ; LDL 49 - current medication: Rosuvastatin 40 mg at bedtime - continue working on lifestyle modifications - continue current medication Menometrorrhagia 09/18/2011 Resolved Problems Problem Noted Date Diagnosed Date Resolved Date Obesity 10/07/2011 10/19/2022 Encounters Date Type Department Care Team Description 02/25/2024 Refill [facility] [address] [place] [address] Neyda Chacko MD Iron deficiency anemia, unspecified iron deficiency anemia type; Type 2 diabetes mellitus with hyperglycemia, with long-term current use of insulin ([facility]) 02/24/2024 Refill [facility] [address] [place] [address] Rosalia Ag DO Type 2 diabetes mellitus with hyperglycemia, with long-term current use of insulin ([facility]) 02/23/2024 Refill [facility] [address] [place] [address] Nedya Chacko MD Peripheral arterial occlusive disease ([facility]) 02/10/2024 Refill [facility] [address] [place] [address] Sabina Clarke ANP Chronic low back pain, unspecified back pain laterality, unspecified whether sciatica present 01/27/2024 Refill [facility] [address] [place] [address] Neyda Chacko MD Vitamin D deficiency; Type 2 diabetes mellitus with hyperglycemia, with long-term current use of insulin ([facility]) 01/11/2024 Telephone [facility] MEDICINE [address] [place] [phone] Neyda Chacko MD 01/04/2024 Refill [facility] [address], [place] [phone] Neyda Chacko MD Type 2 diabetes mellitus with hyperglycemia, with long-term current use of insulin ([facility]) 12/21/2023 11:30 AM EDT Office Visit [facility] MEDICINE [address] [place] [phone] Neyda Chacko MD Weight loss (Primary Dx); Type 2 diabetes mellitus with hyperglycemia, with long-term current use of insulin ([facility]); Essential hypertension; Bradycardia; Leukopenia, unspecified type; Chronic anemia; Encounter for immunization; Bilateral hand numbness; Breast pain, right; Axillary mass, right; Dyslipidemia 12/21/2023 Travel 12/17/2023 Orders Only [address] [address] Neyda Chacko MD 12/16/[address] [address] Morena Mclaughlin RN Results 12/16/2023 Orders Only [address] [address] Neyda Chacko MD Leukopenia, unspecified type (Primary Dx) 12/15/2023 Orders Only [address] [phone] Neyda Chacko MD from Last 3 Months Immunizations Name Administration Dates Next Due Hep B, adult 10/02/2013,07/03/2013,07/19/2012 Influenza Injectable Quadriv alant Preservative Free IIV4 MDCK 12/01/2019 Influenza injectable quadriv alent IIV4 with preservative 12/29/2017,11/11/2016,12/19/2014 Influenza injectable quadriv alent preservative free 01/06/2022,01/13/2021,11/30/2018,01/29 Influenza, High Dose Seasona l, Preservative Free 12/21/2023 Influenza, IIV3, injectable 12/11/2013,0 11/05/2010,11/06/2009,02/13,01/04/2001,11/26/1998,12/12/1994 ,12/20/1991 Influenza, Split (incl. evelin fied surface antigen) 11/10/2012,12/10/2011 Pfizer Covid-19 Vaccine 12+ 12/21/2023 Pneumococcal Conjugate PCV 20 10/07/2022 Pneumococcal Polysaccharide PPSV23 08/20/2005, TD (adult), 2 Lf tetanus tox oid, preservative free, adsorbed 08/20/2005,11/29/1991 Tdap 08/07/2021,04/07/2011 Zoster, Recombinant 10/04/2020,08/01/2020 Social History Tobacco Use Types Packs/Day Years Used Date Smoking Tobacco: Former Cigarettes Passive Smoke Exposure: Never Smokeless Tobacco: Never Tobacco Cessation:Counseling Given: Not Answered Alcohol Use Standard Drinks/Week Comments Defer 0 [...] is your housing situation today? I have deanrde gardiner 06/15/[address] you [...] Orientation Straight 12/22/2021 10 :14 AM EDT Last Filed Vital Signs Vital Sign Reading Time Taken Comments Blood Pressure 125/76 12/21/2023 11:40 AM EDT Pulse 70 12/21/2023 11:40 AM EDT Temperature 36.2 ??C (97.1 ??F) 12/21/2023 11:40 AM E DT Respiratory Rate 12 12/21/2023 11:40 AM EDT Oxygen Saturation 96% 12/21/2023 11:40 AM EDT Inhaled Oxygen Concentration - - Weight 69 kg (152 lb 3.2 oz) 12/21/2023 11:40 AM EDT Height 154.1 cm (5' 0.68 ) 12/21/2023 11:40 AM E DT Body Mass Index 29.06 12/21/2023 11:40 AM EDT Plan of Treatment Upcoming Encounters Date Type Department Care Team (Late st Contact Info) Description 03/30/2024 11:00 AM EST Office Visit [facility] MEDICINE [address], [place] [phone] Neyda Chacko MD [address], [place] [phone] Health Maintenance Due Date Last Done Comments CT Colonography 1958 Dental X-Ray: Full Mouth 1958 FIT DNA/Cologuard 1958 FIT 1958 FOBT 1958 Sigmoidoscopy 1958 Hepatitis C Screening 1976 Pap Smear 1979 RSV Patients and Patients Aged 60 years or older (1 - Risk 60-74 years 1-dose series) 2018 Dental Oral Exam 09/29/2022 03/31/2022 Dental Prophylaxis 09/29/2022 03/31/2022 Dental X-Ray: Bitewings 04/01/2023 03/31/2022 Diabetes: Foot Exam 10/08/2023 10/07/2022, 10/07/2022, 10/07/2022, Additional history exists Eye Exam 12/26/2023 12/25/2022 Mammogram 01/29/2024 01/28/2022, 1206/2021, 01/20/2021, Additional history exists Diabetes: Hemoglobin A1C 03/22/2024 024, 06/15/2023, 10/07/2022, Additional history exists Depression Screening 06/14/2024 06/15/2023, 06/15/19 SDOH Screening 06/14/2024 06/15/2023 Diabetes: Urine Protein Screening 12/14/2024 12/15/2023, 10/07/2022, 01/06/2022, Additional history exists Lipid Panel 12/14/2024 12/15/2023, 09/22, 01/06/2022, Additional history exists Alcohol/Substance Use Screening 12/20/2024 12/21/2023 Tobacco Screening 12/20/2024 12/21/2023 Cervical Cancer Screening 12/26/2024 HPV/Cotest 12/26/2024 12/27/2019, 05/2019, 09/30/2017 Colonoscopy 08/15/2025 08/15/2020 Colorectal Cancer Screening 08/15/2025 DTaP/Tdap/Td Vaccines (3 - Td or Tdap) 08/08/2031 08/07/2021, 04/07/2011, 08/20/2005, Additional history exists Hepatitis B Vaccines Completed 10/02/2013, 07/03/2013, 07/19/2012 Zoster Vaccines Completed 10/04/2020, 08/01/2020 Pneumococcal Vaccine: 65+ Years Completed 10/07/2022, 08/20/2005, 11/07/1999 COVID-19 Vaccine Completed 12/21/2023, , 07/08/2021, Additional history exists Influenza Vaccine Completed 12/21/2023, , 01/13/2021, Additional history exists HIB Vaccines Aged Out No longer eligi ble based on patient's age to complete this topic HPV Vaccines Aged Out No longer eligi ble based on patient's age to complete this topic Hepatitis A Vaccines Aged Out No long er eligible based on patient's age to complete this topic IPV Vaccines Aged Out No longer eligi ble based on patient's age to complete this topic Meningococcal Vaccine Aged Out No philippe juan ramon eligible based on patient's age to complete this topic RSV under 20 months Aged Out No longe r eligible based on patient's age to complete this topic Rotavirus Vaccines Aged Out No longer eligible based on patient's age to complete this topic Procedures Procedure Name Priority Date/Time Associated Diagnosis Comments POCT GLUCOSE Routine 12/21/2023 1:19 PM EDT Type 2 diabetes mellitus with hyperglycemia, with long-term current use of insulin ([facility]/HCC) POCT GLYCOSYLATED HEMOGLOBIN (HGB A1C) Routine 12/21/2023 1:19 PM EDT Type 2 diabetes mellitus with hyperglycemia, with long-term current use of insulin (CMS/HCC) HOLD LT BLUE - POSSIBLE COAG Routine 12/17/2023 12:02 PM EDT PATHOLOGIST REVIEW - CBC Routine 12/17/2023 12:02 PM EDT Leukopenia, unspecified type CBC WITH AUTO DIFFERENTIAL Routine 12/17/2023 12:02 PM EDT Leukopenia, unspecified type SLIDE REVIEW Routine 12/15/2023 11:00 AM EDT CBC WITH AUTO DIFFERENTIAL Routine 12/15/2023 11:00 AM EDT Weight loss TSH W/REFLEX TO FT4 Routine 12/15/2023 1 1:00 AM EDT Weight loss COMPREHENSIVE METABOLIC PANEL Routine 12/15/2023 11:00 AM EDT Essential hypertension ALBUMIN, RANDOM URINE W/CREATININE Routine 12/15/2023 11:00 AM EDT Type 2 diabetes mellitus with hyperglycemia, with long-term current use of insulin ([facility]) LIPID PANEL WITH REFLEX TO DIRECT LDL Routine 12/15/2023 11:00 AM EDT Type 2 diabetes mellitus with hyperglycemia, with long-term current use of insulin ([facility]) Dyslipidemia VITAMIN B12/FOLATE, SERUM PANEL Routine 12/15/2023 11:00 AM EDT Type 2 diabetes mellitus with hyperglycemia, with long-term current use of insulin (CMS/HCC) HM DIABETES EYE EXAM Routine 12/25/2022 PERIODIC ORAL EVALUATION - ESTABLISHED PATIENT Routine 03/31/2022 1:15 PM EST Full PROPHYLAXIS - ADULT Routine 03/31/2022 11:00 AM EST Dental plaque on multiple teeth BITEWINGS - 4 RADIOGRAPHIC IMAGES Routine 03/31/2022 11:00 AM EST Dental plaque on multiple teeth HM MAMMOGRAPHY Routine 01/28/2022 HM COLONOSCOPY Routine 08/15/2020 ZZZ HISTORICAL HPV E6/E7 RFLX LINDSAY 16 18/45 Routine 12/27/2019 1:40 PM EST from Last 3 Months or Most Recently Relevant to Health Maintenance Results * (ABNORMAL) POCT glycosylated hemoglobin (Hgb A1c) (12/21/2023 1:19 PM EDT) Pathologist [facility] Hemoglobin A1C 7.9(A) 4.0 - 6.0 % QC Media Lot # [id number] Lot# Expiration Date , Blood Capillary blood specimen / Unknown 12/21/2023 1:19 PM EDT us Neyda Chacko MD POINT OF CARE TEST ENTER/EDIT OR DERABLES Final Result * (ABNORMAL) POCT glucose manually resulted (12/21/2023 1:19 PM EDT) Pathologist [facility] Glucose Blood, POC 230(A) 60 - 200 mg/dL QC Media Lot # [id number] Lot# Expiration Date 302,[id number] Blood Capillary blood specimen / Unknown 12/21/2023 1:19 PM EDT us Neyda Chacko MD POINT OF CARE TEST ENTER/EDIT OR DERABLES Final Result * HOLD LT BLUE - POSSIBLE COAG (12/17/2023 12:02 PM EDT) Hold Lt Blue - Possible Coag SEE NOTE [facility] Comment:Specimen will be hel d untested for 4 hours. Call Hematologyif testing is desired. 12/17/2023 12:0 2 PM EDT 12/17/2023 1:26 PM EDT Neyda Chacko MD LAB BLOOD ORDERABLES Final Resul t Performing Organization Address City/[facility]/ZIP Co de Phone Number [facility] [address] [place] [phone] * Pathologist Review - CBC (12/17/2023 12:02 PM EDT) Pathologist Review - CBC SEE NOTE [facility] Comment:Peripheral blood joshua ments are normal appearing.- Yash Moreno M.D. Pathology Blood Venous blood specimen / Unknown 12/17/2023 12:02 PM EDT 12/17/2023 1:19 PM EDT Neyda Chacko MD LAB BLOOD ORDERABLES Final Resul t Performing Organization Address City/[facility]/ZIP Co de Phone Number [facility] [address] [place] [phone] * (ABNORMAL) CBC auto differential (12/17/2023 12:02 PM EDT) Only the most recent of2 resultswithin the time period is included. White Blood Count 3.7(L) 4.8 - 10.8 X10*3/uL [facility] Red Blood Count 4.47 4.20 - 5.50 X10*6/uL [facility] Hemoglobin 13.0 12.0 - 16.0 g/dl [facility] Hematocrit 38.4 37.0 - 47.0 % [facility] Mean Corpuscular Volume 85.9 80.0 - 98.0 fL [facility] Mean Corpuscular Hemoglobin 29.1 27.0 - 33.0 pg [facility] Mean Corpuscular HGB Conc 33.9 31.0 - 35.0 g/dl [facility] Red Cell Distribution Width 11.9 11.0 - 16.0 % [facility] Platelet Count 209 160 - 400 X10*3/uL [facility] Mean Platelet Volume 9.7 9.4 - 12.3 fL [facility] Neutrophils Percent Auto 55.4 45 - 73 % [facility] Imm Gran Pct Auto 0.3 0.0 - 0.4 % [facility] Lymphocytes Percent Auto 33.4 20 - 40 % [facility] Monocytes Percent Auto 8.0 2 - 11 % [facility] Eosinophils Percent Auto 2.4 0 - 4 % [facility] Basophils Percent Auto 0.5 0 - 2 % [facility] NRBC Pct Auto 0.0 0.0 - 0.2 /100WBC [facility] Neutrophils Absolute Auto 2.1 2.0 - 8.3 x10*3/uL [facility] Imm Gran Abs Auto 0.01 0.00 - 0.03 X10*3/uL [facility] Lymphocytes Absolute Auto 1.3 1.2 - 4.9 X10*3/uL [facility] Monocytes Absolute Auto 0.3 0.1 - 1.2 X10*3/uL [facility] Eosinophils Absolute Auto 0.1 0.0 - 0.4 X10*3/uL [facility] Basophils Absolute Auto 0.0 0.0 - 0.2 X10*3/uL [facility] NRBC Abs Auto 0.000 0.0 - 0.012 X10*3/uL [facility] Blood Venous blood specimen / Unknown 12/17/2023 12:02 PM EDT 12/17/2023 1:19 PM EDT us Neyda Chacko MD LAB BLOOD ORDERABLES Final Resul t [facility] [address] [place] [phone] * Slide Review (12/15/2023 11:00 AM EDT) Slide Review VERIFIED [facility] 12/15/2023 11:0 0 AM EDT 12/15/2023 1:24 PM EDT us Neyda Chacko MD LAB BLOOD ORDERABLES Final Resul t Performing Organization Address City/[facility] Co de Phone Number [facility] [address] [place] [phone] * Vitamin B12 (Cobalamin) and Folate Panel, Serum (12/15/2023 11:00 AM EDT) Vitamin B12 402 200 - 900 pg/mL [facility] Comment:NORMAL 200-900 PG/ML INDETERMINATE 160-199 PG/ML DEFICIENT < 160 PG/ML Folate 12.9 > or = 4.0 ng/mL [facility] Comment:Reference Values:> o r = 4.0 ng/mL< 4.0 ng/mL suggests folate deficiency Methotrexate, aminopterin and folinic acid(leucovorin) are chemotherapeutic agents whose molecularstructures are similar to folate; therefore, the Architectfolate assay cannot be used for patients using these drugs. Blood 12/15/2023 11:0 0 AM EDT 12/15/2023 1:24 PM EDT us Neyda Chacko MD LAB BLOOD ORDERABLES Final Resul t Performing Organization Address [facility] Co de Phone Number [facility] [address] [place] [phone] * TSH with Reflex to Free T4 (12/15/2023 11:00 AM EDT) TSH reflex Free T4 2.91 0.32 - 4.0 uIU/mL [facility] Blood 12/15/2023 11:0 0 AM EDT 12/15/2023 1:24 PM EDT us Neyda Chacko MD LAB BLOOD ORDERABLES Final Resul t Performing Organization Address City/[facility]/ZIP Co de Phone Number [facility] [address] [place] [phone] * Lipid Panel with Reflex to Direct LDL (12/15/2023 11:00 AM EDT) Triglycerides 45 <150 mg/dL [facility] Comment:Desirable Triglyceri de: less than 150 mg/dLBorderline High Triglyceride 150-199 mg/dLHigh Triglyceride: 200-499 mg/dLVery High Triglyceride: greater than or equal to 5OO mg/dL Cholesterol 113 <200 mg/dL [facility] Comment:Desirable Cholestero l: less than 200 mg/dLBorderline High Cholesterol: 200-239 mg/dLHigh Cholesterol: greater than 239 mg/dL LDL Cholesterol Calculated 51 <100 mg/dL [facility] Comment:Desirable LDL: less than 100 mg/dLNear Optimal/Above Optimal LDL: 110- 129 mg/dLBorderline High LDL: 130-159 mg/dLHigh LDL: 160-189 mg/dLVery High LDL: greater than or equal to 190 mg/dL HDL Cholesterol 53 >40 mg/dL [facility] Comment:Desirable HDL: great er than 40 mg/dL Note: This HDL assay may give artificially low results in patients with liver disease. Blood 12/15/2023 11:0 0 AM EDT 12/15/2023 1:24 PM EDT us Neyda Chacko MD LAB BLOOD ORDERABLES Final Resul t [facility] [address] [place] [phone] * Albumin, Random Urine W/Creatinine (12/15/2023 11:00 AM EDT) Creatinine, Urine 75.29 mg/dL [facility] Microalbumin Urine 21.0 mg/L [facility] Microalbum Creatinine Ratio Ur 27.8 <30 ug/mg cr [facility] Comment:Albumin/Creatinine R atio Reference Ranges: Normal: < 30 ug/mg creatinine Microalbuminuria: 30 - 300 ug/mg creatinineClinical Albuminuria: > 300 ug/mg creatinine Urine 12/15/2023 11:0 0 AM EDT 12/15/2023 1:12 PM EDT us Neyda Chacko MD LAB URINE ORDERABLES Final Resul t [facility] [address] [place] [phone] * (ABNORMAL) Comprehensive Metabolic Panel (12/15/2023 11:00 AM EDT) Sodium 142 135 - 145 mmol/L [facility] Potassium 4.0 3.3 - 5.1 mmol/L [facility] Chloride 107 96 - 108 mmol/L [facility] Carbon Dioxide 30(H) 22 - 29 mmol/L [facility] Anion Gap 9(L) 12 - 20 [facility] Urea Nitrogen (BUN) 18(H) 9 - 16 mg/dL [facility] Creatinine, Serum 0.68 0.5 - 1.4 mg/dL [facility] Estimated Glomerular Filt Rate >60 [facility] Comment:NOTE: For -Am erican individuals, multiply the result by 1.210.Chronic Kidney Disease: Estimated GFR < 60 mL/min/[id number] Kidney Disease: Estimated GFR < 15 mL/min/1.73m2 Glucose 161(H) 60 - 115 mg/dL [facility] Calcium 9.5 8.4 - 10.2 mg/dL [facility] Bilirubin, Total 0.2 0.0 - 1.0 mg/dL [facility] Aspartate Amino Transferase 34(H) 5 - 31 U/L [facility] Alanine Aminotransferase 49(H) 0 - 31 U/L [facility] Total Protein 6.9 6.5 - 8.0 g/dL [facility] Albumin Level 3.9 3.5 - 5.0 g/dL [facility] Alkaline Phosphatase 59 39 - 117 U/L [facility] Blood Venous blood specimen / Unknown 12/15/2023 11:00 AM EDT 12/15/2023 1:24 PM EDT Neyda Chacko MD LAB BLOOD ORDERABLES Final Resul t [facility] [address] [place] [phone] * Diabetes Eye Exam (12/25/2022) Eye Exam Normal Normal Historical Provider HEALTH MAINTENANCE Final Result * Mammography (01/28/2022) Mammogram peform Comment:Bi Rads-1 Anatomical Region Laterality Modality Other Historical Provider HEALTH MAINTENANCE Final Result * Colonoscopy (08/15/2020) Colonoscopy Normal Normal Historical Provider HEALTH MAINTENANCE Final Result * HPV E6/E7 RFLX LINDSAY 16 18/45 (12/27/2019 1:40 PM EST) HPV mRNA E6/E7 rflx Not Detected Not Detected [facility] Comment: This test was performed using the APTIMA HPV Assay ([employer] This assay detects E6/E7 viral messenger RNA (mRNA) from 14 high-risk HPV types (16,18,31,33,35,39,45,51,52,56,58,59,66,68). The analytical performance characteristics of this assay have been determined by [employer]. The modifications have not been cleared or approved by the FDA. This assay has been validated pursuant to the CLIA regulations and is used for clinical purposes. THIS TEST WAS PERFORMED AT: [facility] [address] [facility] [address] [place], [place] [phone] RENE MULLINS MD 12/27/2019 1:40 PM EST Ry Curtis MD HISTORICAL/NON ORDERABLE LABS Fi nal Result [facility] [address] [place] [address], from Last 3 Months or Most Recently Relevant to Health Maintenance Insurance [facility] [address] [place] [address] DENTAL - [facility] [address] [place] [address] [address] [place] [address] [address] [place] [address] Care Teams Oracle Ebs Architect Relationship Specialty Start Date End Date Neyda Chacko MD [address] [place] [address] PCP - General Family Medicine 02/22/18
--- OUTSIDE RECORDS SUMMARY | 2024-03-15 12:17 | XMS_ITS | Encounter Summary ---
Author Organization [employer] Address [address] [facility] [address] [place] [address] Care Team Providers Care Business Continuity Global Director Name Role Phone Neyda Chacko MD Primary Care Provider [phone] Encounter Details Date Type Department Care Team (Late st Contact Info) Description 11/02/2023 Orders Only [facility] [address] [place], [place] [phone] Neyda Chacko MD [address] [place], [place] [phone] Type 2 diabetes mellitus with hyperglycemia, with long-term current use of insulin ([facility]) Social History Tobacco Use Types Packs/Day Years [...] Description 03/30/2024 11:00 AM EST Office Visit [facility] [address] [place] [phone] Neyda Chacko MD [address] [place] [phone] documented as of this encounter Visit Diagnoses Diagnosis Type 2 diabetes mellitus with hyperglycemia, with long-term current use of insulin ([facility]) documented in this encounter Additional Health Concerns Assessment Noted Time PHQ-9 Depression Total Score: 7 06/15/19 24 10:57 AM EDT documented as of this encounter Care Teams Business Continuity Global Director Relationship Specialty Start Date End Date Neyda Chacko MD [address] [place] [phone] PCP - General Family Medicine 02/22/18 documented as of this encounter
--- OUTSIDE RECORDS SUMMARY | 2024-03-15 12:17 | XMS_ITS | Encounter Summary ---
Author Organization [employer] Address [address] [place] [address] Care Team Providers Care Regenerator Operator Name Role Phone Neyda Chacko MD Primary Care Provider [phone] Reason for Visit * Reason Comments Med Refill Encounter Details Date Type Department Care Team (Late st Contact Info) Description 02/25/2024 Refill [facility] [address] [place], [place] [phone] Neyda Chacko MD [address] [place], [place] [phone] Iron deficiency anemia, unspecified iron deficiency anemia type; Type 2 diabetes mellitus with hyperglycemia, with long-term current use of insulin ([facility]) Social History Tobacco Use Types Packs/Day Years [...] Visit [facility] [address] [place] [phone] Neyda Chacko MD [address] [place] [phone] documented as of this encounter Visit Diagnoses Diagnosis Iron deficiency anemia, unspecified iron deficiency anemia type Type 2 diabetes mellitus with hyperglycemia, with long-term current use of insulin ([facility]) documented in this encounter Additional Health Concerns Assessment Noted Time PHQ-9 Depression Total Score: 7 06/15/19 24 10:57 AM EDT documented as of this encounter Care Teams Regenerator Operator Relationship Specialty Start Date End Date Neyda Chacko MD [address] [place] [phone] PCP - General Family Medicine 02/22/18 documented as of this encounter
--- OUTSIDE RECORDS SUMMARY | 2024-03-15 12:17 | XMS_ITS | Encounter Summary ---
Author Organization [employer] Address [address] [facility] 7t [place] [address] Care Team Providers Care Network Systems Operator Name Role Phone Neyad Chacko MD Primary Care Provider [phone] Encounter Details Date Type Department Care Team ([facility] st Contact Info) Description 12/16/2023 Orders Only [facility] MED[facility]INE [address] [place], [place] [phone] Neyda Chacko MD [address] [place], [place] [phone] Leukopenia, unspecified type (Primary Dx) Social History Tobacco Use Types Packs/Day Years [...] Description 03/30/2024 11:00 AM EST Office Visit [facility] MEDICINE [address] [place] [address] [phone] Neyda Chacko MD [address] [place] [address] documented as of this encounter Procedures Procedure Name Priority Date/Time Associated Diagnosis Comments PATHOLOGIST REVIEW - CBC Routine 12/17/2023 12:02 PM EDT Leukopenia, unspecified type CBC WITH AUTO DIFFERENTIAL Routine 12/17/2023 12:02 PM EDT Leukopenia, unspecified type documented in this encounter Results * Pathologist Review - CBC (12/17/2023 12:02 PM EDT) Pathologist Review - CBC SEE NOTE [facility] Comment:Peripheral blood joshua ments are normal appearing.- Yash Moreno M.D. Pathology Blood Venous blood specimen / Unknown 12/17/2023 12:02 PM EDT 12/17/2023 1:19 PM EDT us Neyda Chacko MD LAB BLOOD ORDERABLES Final Resul t [facility] [address] [place] [phone] * (ABNORMAL) CBC auto differential (12/17/2023 12:02 PM EDT) White Blood Count 3.7(L) 4.8 - 10.8 X10*3/uL [facility] Red Blood Count 4.47 4.20 - 5.50 X10*6/uL [facility] Hemoglobin 13.0 12.0 - 16.0 g/dl [facility] Hematocrit 38.4 37.0 - 47.0 % [facility] Mean Corpuscular Volume 85.9 80.0 - 98.0 fL [facility] Mean Corpuscular Hemoglobin 29.1 27.0 - 33.0 pg [facility] Mean Corpuscular HGB Conc 33.9 31.0 - 35.0 g/dl [facility] Red Cell Distribution Width 11.9 11.0 - 16.0 % [facility] Platelet Count 209 160 - 400 X10*3/uL [facility] Mean Platelet Volume 9.7 9.4 - 12.3 fL [facility] Neutrophils Percent Auto 55.4 45 - 73 % [facility] Imm Gran Pct Auto 0.3 0.0 - 0.4 % [facility] Lymphocytes Percent Auto 33.4 20 - 40 % [facility] Monocytes Percent Auto 8.0 2 - 11 % [facility] Eosinophils Percent Auto 2.4 0 - 4 % [facility] Basophils Percent Auto 0.5 0 - 2 % [facility] NRBC Pct Auto 0.0 0.0 - 0.2 /100WBC [facility] Neutrophils Absolute Auto 2.1 2.0 - 8.3 x10*3/uL [facility] Imm Gran Abs Auto 0.01 0.00 - 0.03 X10*3/uL [facility] Lymphocytes Absolute Auto 1.3 1.2 - 4.9 X10*3/uL [facility] Monocytes Absolute Auto 0.3 0.1 - 1.2 X10*3/uL [facility] Eosinophils Absolute Auto 0.1 0.0 - 0.4 X10*3/uL [facility] Basophils Absolute Auto 0.0 0.0 - 0.2 X10*3/uL [facility] NRBC Abs Auto 0.000 0.0 - 0.012 X10*3/uL [facility] Blood Venous blood specimen / Unknown 12/17/2023 12:02 PM EDT 12/17/2023 1:19 PM EDT us Neyda Chacko MD LAB BLOOD ORDERABLES Final Resul t [facility] [address] [place] [address] [phone] documented in this encounter Visit Diagnoses Diagnosis Leukopenia, unspecified type- Primary documented in this encounter Additional Health Concerns Assessment Noted Time PHQ-9 Depression Total Score: 7 06/15/19 24 10:57 AM EDT documented as of this encounter Care Teams Network Systems Operator Relationship Specialty Start Date End Date Neyda Chacko MD [address] [place] [address] PCP - General Family Medicine 02/22/18 documented as of this encounter
--- OUTSIDE RECORDS SUMMARY | 2024-03-15 12:17 | XMS_ITS | Encounter Summary ---
Author Organization [employer] Address [address] [facility] 7t [place] [address] Care Team Providers Care Community Relations Rep Name Role Phone Neyda Chacko MD Primary Care Provider [phone] Encounter Details Date Type Department Care Team (Late st Contact Info) Description 09/09/2023 Orders Only [facility] MEDICINE [address] [place], [place] [phone] Neyda Chacko MD [address] [place], [place] [phone] Essential hypertension (Primary Dx); Type 2 diabetes mellitus with hyperglycemia, with long-term current use of insulin ([facility]); Dyslipidemia; Weight loss Social History Tobacco Use Types Packs/Day Years [...] Description 03/30/2024 11:00 AM EST Office Visit [facility] [address] [place] [address] Neyda Chacko MD [address] [place] [address] documented as of this encounter Procedures Procedure Name Priority Date/Time Associated Diagnosis Comments VITAMIN B12/FOLATE, SERUM PANEL Routine 12/15/2023 11:00 AM EDT Type 2 diabetes mellitus with hyperglycemia, with long-term current use of insulin ([facility]) TSH W/REFLEX TO FT4 Routine 12/15/2023 1 1:00 AM EDT Weight loss LIPID PANEL WITH REFLEX TO DIRECT LDL Routine 12/15/2023 11:00 AM EDT Type 2 diabetes mellitus with hyperglycemia, with long-term current use of insulin ([facility]) Dyslipidemia ALBUMIN, RANDOM URINE W/CREATININE Routine 12/15/2023 11:00 AM EDT Type 2 diabetes mellitus with hyperglycemia, with long-term current use of insulin ([facility]) CBC WITH AUTO DIFFERENTIAL Routine 12/15/2023 11:00 AM EDT Weight loss COMPREHENSIVE METABOLIC PANEL Routine 12/15/2023 11:00 AM EDT Essential hypertension documented in this encounter Results * (ABNORMAL) CBC auto differential (12/15/2023 11:00 AM EDT) White Blood Count 2.5(L) 4.8 - 10.8 X10*3/uL [facility] Red Blood Count 4.42 4.20 - 5.50 X10*6/uL [facility] Hemoglobin 12.7 12.0 - 16.0 g/dl [facility] Hematocrit 38.9 37.0 - 47.0 % [facility] Mean Corpuscular Volume 88.0 80.0 - 98.0 fL [facility] Mean Corpuscular Hemoglobin 28.7 27.0 - 33.0 pg [facility] Mean Corpuscular HGB Conc 32.6 31.0 - 35.0 g/dl [facility] Red Cell Distribution Width 12.0 11.0 - 16.0 % [facility] Platelet Count 180 160 - 400 X10*3/uL [facility] Mean Platelet Volume 9.8 9.4 - 12.3 fL [facility] Neutrophils Percent Auto 36.6(L) 45 - 73 % [facility] Imm Gran Pct Auto 0.4 0.0 - 0.4 % [facility] Lymphocytes Percent Auto 49.8(H) 20 - 40 % [facility] Monocytes Percent Auto 8.8 2 - 11 % [facility] Eosinophils Percent Auto 3.6 0 - 4 % [facility] Basophils Percent Auto 0.8 0 - 2 % [facility] NRBC Pct Auto 0.0 0.0 - 0.2 /100WBC [facility] Neutrophils Absolute Auto 0.9(L) 2.0 - 8.3 x10*3/uL [facility] Imm Gran Abs Auto 0.01 0.00 - 0.03 X10*3/uL [facility] Lymphocytes Absolute Auto 1.3 1.2 - 4.9 X10*3/uL [facility] Monocytes Absolute Auto 0.2 0.1 - 1.2 X10*3/uL [facility] Eosinophils Absolute Auto 0.1 0.0 - 0.4 X10*3/uL [facility] Basophils Absolute Auto 0.0 0.0 - 0.2 X10*3/uL [facility] NRBC Abs Auto 0.000 0.0 - 0.012 X10*3/uL [facility] Blood Venous blood specimen / Unknown 12/15/2023 11:00 AM EDT 12/15/2023 1:24 PM EDT Neyda Chacko MD LAB BLOOD ORDERABLES Edited Resu lt - Final Performing Organization Address [facility]/ZIP Co de Phone Number [facility] [address] [place] [phone] * TSH with Reflex to Free T4 (12/15/2023 11:00 AM EDT) TSH reflex Free T4 2.91 0.32 - 4.0 uIU/mL [facility] Blood 12/15/2023 11:0 0 AM EDT 12/15/2023 1:24 PM EDT Neyda Chacko MD LAB BLOOD ORDERABLES Final Resul t Performing Organization Address [facility] Co de Phone Number [facility] [address] [place] [phone] * (ABNORMAL) Comprehensive Metabolic Panel (12/15/2023 11:00 AM EDT) Sodium 142 135 - 145 mmol/L [facility] Potassium 4.0 3.3 - 5.1 mmol/L [facility] Chloride 107 96 - 108 mmol/L [facility] Carbon Dioxide 30(H) 22 - 29 mmol/L [facility] Anion Gap 9(L) 12 - 20 [facility] Urea Nitrogen (BUN) 18(H) 9 - 16 mg/dL [facility] Creatinine, Serum 0.68 0.5 - 1.4 mg/dL [facility] Estimated Glomerular Filt Rate >60 [facility] Comment:NOTE: For -Am erican individuals, multiply the result by 1.210.Chronic Kidney Disease: Estimated GFR < 60 mL/min/[id number] Kidney Disease: Estimated GFR < 15 mL/min/1.73m2 Glucose 161(H) 60 - 115 mg/dL [facility] Calcium 9.5 8.4 - 10.2 mg/dL [facility] Bilirubin, Total 0.2 0.0 - 1.0 mg/dL [facility] Aspartate Amino Transferase 34(H) 5 - 31 U/L [facility] Alanine Aminotransferase 49(H) 0 - 31 U/L [facility] Total Protein 6.9 6.5 - 8.0 g/dL [facility] Albumin Level 3.9 3.5 - 5.0 g/dL [facility] Alkaline Phosphatase 59 39 - 117 U/L [facility] Blood Venous blood specimen / Unknown 12/15/2023 11:00 AM EDT 12/15/2023 1:24 PM EDT us Neyda Chacko MD LAB BLOOD ORDERABLES Final Resul t [facility] [address] [place] [phone] * Albumin, Random Urine W/Creatinine (12/15/2023 11:00 AM EDT) Creatinine, Urine 75.29 mg/dL [facility] Microalbumin Urine 21.0 mg/L [facility] Microalbum Creatinine Ratio Ur 27.8 <30 ug/mg cr [facility] Comment:Albumin/Creatinine R atio Reference Ranges: Normal: < 30 ug/mg creatinine Microalbuminuria: 30 - 300 ug/mg creatinineClinical Albuminuria: > 300 ug/mg creatinine Urine 12/15/2023 11:0 0 AM EDT 12/15/2023 1:12 PM EDT Neyda Chacko MD LAB URINE ORDERABLES Final Resul t Performing Organization Address [facility] Co de Phone Number [facility] [address] [place] [phone] [phone] * Lipid Panel with Reflex to Direct LDL (12/15/2023 11:00 AM EDT) Triglycerides 45 <150 mg/dL [facility] Comment:Desirable Triglyceri de: less than 150 mg/dLBorderline High Triglyceride 150-199 mg/dLHigh Triglyceride: 200-499 mg/dLVery High Triglyceride: greater than or equal to 5OO mg/dL Cholesterol 113 <200 mg/dL [facility] Comment:Desirable Cholestero l: less than 200 mg/dLBorderline High Cholesterol: 200-239 mg/dLHigh Cholesterol: greater than 239 mg/dL LDL Cholesterol Calculated 51 <100 mg/dL [facility] Comment:Desirable LDL: less than 100 mg/dLNear Optimal/Above Optimal LDL: 110- 129 mg/dLBorderline High LDL: 130-159 mg/dLHigh LDL: 160-189 mg/dLVery High LDL: greater than or equal to 190 mg/dL HDL Cholesterol 53 >40 mg/dL [facility] Comment:Desirable HDL: great er than 40 mg/dL Note: This HDL assay may give artificially low results in patients with liver disease. Blood 12/15/2023 11:0 0 AM EDT 12/15/2023 1:24 PM EDT Neyda Chacko MD LAB BLOOD ORDERABLES Final Resul t Performing Organization Address City/[facility] Co de Phone Number [facility] [address] [place] [address] [phone] * Vitamin B12 (Cobalamin) and Folate Panel, Serum (12/15/2023 11:00 AM EDT) Vitamin B12 402 200 - 900 pg/mL [facility] Comment:NORMAL 200-900 PG/ML INDETERMINATE 160-199 PG/ML DEFICIENT < 160 PG/ML Folate 12.9 > or = 4.0 ng/mL [facility] Comment:Reference Values:> o r = 4.0 ng/mL< 4.0 ng/mL suggests folate deficiency Methotrexate, aminopterin and folinic acid(leucovorin) are chemotherapeutic agents whose molecularstructures are similar to folate; therefore, the Architectfolate assay cannot be used for patients using these drugs. Blood 12/15/2023 11:0 0 AM EDT 12/15/2023 1:24 PM EDT us Neyda Chacko MD LAB BLOOD ORDERABLES Final Resul t [facility] [address] [place] [phone] [phone] documented in this encounter Visit Diagnoses Diagnosis Essential hypertension- Primary Unspecified essential hypertension Type 2 diabetes mellitus with hyperglycemia, with long-term current use of insulin ([facility]) Dyslipidemia Other and unspecified hyperlipidemia Weight loss Loss of weight documented in this encounter Additional Health Concerns Assessment Noted Time PHQ-9 Depression Total Score: 7 06/15/19 24 10:57 AM EDT documented as of this encounter Care Teams Community Relations Rep Relationship Specialty Start Date End Date Neyda Chacko MD [address] [place] [phone] PCP - General Family Medicine 02/22/18 documented as of this encounter
--- OUTSIDE RECORDS SUMMARY | 2024-03-15 12:17 | XMS_ITS | Encounter Summary ---
Author Organization [employer] Address [address] [facility] [address] 7t [place] [address] Care Team Providers Care Assistant Engineer Name Role Phone Neyda Chacko MD Primary Care Provider [phone] Reason for Visit * Reason Comments Med Refill Encounter Details Date Type Department Care Team (Late st Contact Info) Description 02/24/2024 Refill [facility] [address] [place], [place] [phone] Rosalia Ag, [address] [place] [address] Type 2 diabetes mellitus with hyperglycemia, with long-term current use of insulin ([facility]) Social History Tobacco Use Types Packs/Day Years [...] 03/30/2024 11:00 AM EST Office Visit [facility] MEDICINE [address] [place] [phone] Neyda Chacko MD [address] [place] [phone] documented as of this encounter Visit Diagnoses Diagnosis Type 2 diabetes mellitus with hyperglycemia, with long-term current use of insulin ([facility]) documented in this encounter Additional Health Concerns Assessment Noted Time PHQ-9 Depression Total Score: 7 06/15/19 24 10:57 AM EDT documented as of this encounter Care Teams Assistant Engineer Relationship Specialty Start Date End Date Neyda Chacko MD [address] [place] [phone] PCP - General Family Medicine 02/22/18 documented as of this encounter
--- OUTSIDE RECORDS SUMMARY | 2024-03-15 12:17 | XMS_ITS | Encounter Summary ---
Author Organization [employer] Address [address] [facility] 7t [place] [address] Care Team Providers Care Senior Microsoft Net Developer Name Role Phone Neyda Chacko MD Primary Care Provider [phone] Reason for Visit * Reason Onset Date Comments Appointment Request 02/19/2023 Encounter Details Date Type Department Care Team ([facility] st Contact Info) Description 02/19/2023 Telephone [facility] MEDICINE [address] [place], [place] [phone] Neyda Chacko MD [address] [place], [place] [phone] Appointment Request Social History Tobacco Use Types Packs/Day Years Used Date Smoking Tobacco: Former Cigarettes Passive Smoke Exposure: Never Smokeless Tobacco: Never Depression Answer Date Recorded Patient Health Questionnaire-9 Score 5 03/12/2022 Housing Stability Answer Date Recorded What is your housing situation today? I have deandre gardiner 12/28/[address] you li ve. Do you have problems with any of the following? None of the above 12/28/2022 Food Insecurity Answer Date Recorded Within the past 12 months, y ou worried that your food would run out before you got money to buy more: Never True 12/28/2022 Within the past 12 months,th e food you bought just didn't last and you didn't have enough money to get more: Never True 07/2022 Utilities Answer Date Recorded In the past 12 months, has t he electric, gas, oil or water company threatened to shut off services in your home? No 12/28/2022 Depression Answer Date Recorded Patient Health Questionnaire-2 Score 4 03/12/2022 Comments Unknown Sex and Gender Information Value Date Recorded Sex Assigned at Female 12/22/2021 10:14 AM EDT Legal Sex Female 10:14 AM EDT Gender Identity Female 12/22/2021 10:14 AM EDT Sexual Orientation Straight 12/22/2021 10 :14 AM EDT documented as of this encounter Miscellaneous Notes * Telephone Encounter - Horace Khan - 02/19/2023 10:23 AM EST Tc from patients daughter requesting to reschedule appt for 02/19 [employer] CDTM HTN *IP* documented in this encounter Plan of Treatment Upcoming Encounters Date Type Department Care Team (Late st Contact Info) Description 03/30/2024 11:00 AM EST Office Visit [facility] MEDICINE [address] [place] [address] Neyda Chacko MD [address] [place] [address] documented as of this encounter Visit Diagnoses Not on filedocumented in this encounter Additional Health Concerns Assessment Noted Time PHQ-9 Depression Total Score: 5 03/12/19 23 10:44 AM EST documented as of this encounter Care Teams Senior Microsoft Net Developer Relationship Specialty Start Date End Date Neyda Chacko MD [address] [place] [address] PCP - General Family Medicine 02/22/18 documented as of this encounter
--- OUTSIDE RECORDS SUMMARY | 2024-03-15 12:17 | XMS_ITS | Encounter Summary ---
Author Organization [employer] Address [address] [facility] 7t [place] [address] Care Team Providers Care Geometry Professor Name Role Phone Neyda Chacko MD Primary Care Provider [phone] Encounter Details Date Type Department Care Team (Late st Contact Info) Description 01/26/2023 Orders Only [facility] MEDICINE [address] [place], [place] [phone] Neyda Chacko MD [address] [place], [place] [phone] Social History Tobacco Use Types Packs/Day Years [...] Description 03/30/2024 11:00 AM EST Office Visit [facility] MEDICINE [address] [place] [address] Neyda Chacko MD [address] [place] [address] documented as of this encounter Visit Diagnoses Not on filedocumented in this encounter Additional Health Concerns Assessment Noted Time PHQ-9 Depression Total Score: 5 03/12/19 23 10:44 AM EST documented as of this encounter Care Teams Geometry Professor Relationship Specialty Start Date End Date Neyda Chacko MD [address] [place] [address] PCP - General Family Medicine 02/22/18 documented as of this encounter
--- OUTSIDE RECORDS SUMMARY | 2024-03-15 12:18 | XMS_ITS | Encounter Summary ---
Author Organization [employer] [facility] Address [address] [facility] 7t [place] [address] Care Team Providers Care Assistant Professor Of Mathematics Name Role Phone Neyda Chacko MD Primary Care Provider [phone] Encounter Details Date Type Department Care Team ([facility] Contact Info) Description 03/10/2022 Telephone [facility] MEDICINE [address] [place] [address] [phone] Neyda Chacko MD [address] [place] [address] [phone] Social History Tobacco Use Types Packs/Day Years Used Date Smoking Tobacco: Never Assessed Depression Answer Date Recorded Patient Health Questionnaire-9 Score 5 03/12/2022 Depression Answer Date Recorded Patient Health Questionnaire-2 Score 4 03/12/2022 Comments Unknown Sex and Gender Information Value Date Recorded Sex Assigned at Female 12/22/2021 10:14 AM EDT Legal Sex Female 10:14 AM EDT Gender Identity Female 12/22/2021 10:14 AM EDT Sexual Orientation Straight 12/22/2021 10 :14 AM EDT COVID-19 Exposure Response Date Recorded In the last 10 days, have yo u been in contact with someone who was confirmed or suspected to have Coronavirus/COVID-19? No / Unsure 03/12/2022 10:17 AM EST documented as of this encounter Plan of Treatment Upcoming Encounters Date Type Department Care Team ([facility] Contact Info) Description 03/30/2024 11:00 AM EST Office Visit [facility] MEDICINE [address] [place] [phone] Neyda Chacko MD [address] [place] [address] documented as of this encounter Visit Diagnoses Not on filedocumented in this encounter Care Teams Assistant Professor Of Mathematics Relationship Specialty Start Date End Date Neyda Chacko MD [address] [place] [address] PCP - General Family Medicine 02/22/18 documented as of this encounter
--- OUTSIDE RECORDS SUMMARY | 2024-03-15 12:18 | XMS_ITS | Encounter Summary ---
Author Organization [employer] [facility] Address [address] [facility] 7t [place] [address] Care Team Providers Care Dry Mill Operator Name Role Phone Neyda Chacko MD Primary Care Provider [phone] Reason for Visit * Reason Onset Date Comments Med Refill 09/03/2022 Encounter Details Date Type Department Care Team (Late st Contact Info) Description 09/03/2022 Telephone [facility] MEDICINE [address] [place], [place] [phone] Neyda Chacko MD [address] [place], [place] [phone] Med Refill Social History Tobacco Use Types Packs/Day Years Used Date Smoking Tobacco: Never Passive Smoke Exposure: Never Smokeless Tobacco: Never [...] encounter Miscellaneous Notes * Telephone Encounter - Mellissa Aragon - 09/03/2022 2:04 PM EDT Tc from pt requesting a medication refill on traMADoL 50 mg tablet documented in this encounter Plan of Treatment Upcoming Encounters Date Type Department Care Team (Late st Contact Info) Description 03/30/2024 11:00 AM EST Office Visit [facility] MEDICINE [address] [place] [address] Neyda Chacko MD [address] [place] [address] documented as of this encounter Visit Diagnoses Not on filedocumented in this encounter Additional Health Concerns Assessment Noted Time PHQ-9 Depression Total Score: 5 03/12/19 23 10:44 AM EST documented as of this encounter Care Teams Dry Mill Operator Relationship Specialty Start Date End Date Neyda Chacko MD [address] [place] [phone] PCP - General Family Medicine 02/22/18 documented as of this encounter
--- OUTSIDE RECORDS SUMMARY | 2024-03-15 12:18 | XMS_ITS | Encounter Summary ---
Author Organization [employer] [facility] Address [address] [facility] 7t [place] [address] Care Team Providers Care Globe Cleaner Name Role Phone Neyda Chacko MD Primary Care Provider [phone] Encounter Details Date Type Department Care Team (Latest Contact Info) Description 05/21/2020 Abstract [facility] CONVERSIONS Dental, Provider, DDS Social History Tobacco Use Types Packs/Day Years Used Date Smoking Tobacco: Never Assessed Comments Unknown Sex and Gender Information Value [...] Description 03/30/2024 11:00 AM EST Office Visit [facility] MEDICINE [address] [place] [address] Neyda Chacko MD [address] [place] [address] documented as of this encounter Visit Diagnoses Not on filedocumented in this encounter Care Teams Globe Cleaner Relationship Specialty Start Date End Date Neyda Chacko MD [address] [place] [address] PCP - General Family Medicine 02/22/18 documented as of this encounter
--- OUTSIDE RECORDS SUMMARY | 2024-03-15 12:18 | XMS_ITS | Encounter Summary ---
Author Organization [employer] [facility] Address [address] [facility] 7t [place] [address] Care Team Providers Care Technical Systems Architect Name Role Phone Neyda Chacko MD Primary Care Provider [phone] Encounter Details Date Type Department Care Team (Late st Contact Info) Description 03/06/2022 Orders Only [facility] MEDICINE [address] [place] [address] [phone] Misa Tillman LPN Social History Tobacco Use Types Packs/Day Years [...] Description 03/30/2024 11:00 AM EST Office Visit [facility] [address] [place] [address] [phone] Neyda Chacko MD [address] [place] [phone] documented as of this encounter Visit Diagnoses Not on filedocumented in this encounter Care Teams Technical Systems Architect Relationship Specialty Start Date End Date Neyda Chacko MD [address] [place] [address] [phone] PCP - General Family Medicine 02/22/18 documented as of this encounter
--- OUTSIDE RECORDS SUMMARY | 2024-03-15 12:18 | XMS_ITS | Encounter Summary ---
Author Organization [employer] [facility] Address [address] [facility] 7t [place] [address] Care Team Providers Care Transformer Maker Name Role Phone Neyda Chacko MD Primary Care Provider Reason for Visit * Reason Comments Med Refill Encounter Details Date Type Department Care Team (Late st Contact Info) Description 01/28/2022 Refill [facility] MEDICINE [address] [place] [address] [phone] [facility] [address] [place], [place] [phone] Type 2 diabetes mellitus with hyperglycemia (CMS/HCC) Social History Tobacco Use Types Packs/Day [...] Description 03/30/2024 11:00 AM EST Office Visit [facility] MEDICINE [address] [place] [address] [phone] Neyda Chacko MD [address] [place] [address] [phone] documented as of this encounter Visit Diagnoses Diagnosis Type 2 diabetes mellitus with hyperglycemia (CMS/HCC) documented in this encounter Care Teams Transformer Maker Relationship Specialty Start Date End Date Neyda Chacko MD [address] [place] [address] PCP - General Family Medicine 02/22/18 documented as of this encounter
--- OUTSIDE RECORDS SUMMARY | 2024-03-15 12:18 | XMS_ITS | Encounter Summary ---
Author Organization [employer] Address [address] [facility] 7t [place] [address] Care Team Providers Care Choir Leader Name Role Phone Neyda Chacko MD Primary Care Provider [phone] Encounter Details Date Type Department Care Team (Late st Contact Info) Description 03/12/2022 Abstract [facility] MEDICINE [address] [place] [address] [phone] Neyda Chacko MD [address] [place] [address] Social History Tobacco Use Types Packs/Day Years [...] Encounters Date Type Department Care Team (Late Contact Info) Description 03/30/2024 11:00 AM EST Office Visit [facility] MEDICINE [address] [place] [address] [phone] Neyda Chacko MD [address] [place], [place] [phone] documented as of this encounter Visit Diagnoses Not on filedocumented in this encounter Additional Health Concerns Assessment Noted Time PHQ-9 Depression Total Score: 5 03/12/19 23 10:44 AM EST documented as of this encounter Care Teams Choir Leader Relationship Specialty Start Date End Date Neyda Chacko MD [address] [place] [address] PCP - General Family Medicine 02/22/18 documented as of this encounter
--- OUTSIDE RECORDS SUMMARY | 2024-03-15 12:18 | XMS_ITS | Encounter Summary ---
Author Organization [employer] [facility] Address [address] [facility] 7t [place] [address] Care Team Providers Care Groundskeeping Maintenance Name Role Phone Neyda Chacko MD Primary Care Provider [phone] Encounter Details Date Type Department Care Team (Latest Contact Info) Description 01/03/2019 Abstract [facility] CONVERSIONS Dental, Provider, DDS Social History [...] Description 03/30/2024 11:00 AM EST Office Visit [facility] MEDICINE [address] [place] [address] Neyda Chacko MD [address] [place] [address] documented as of this encounter Visit Diagnoses Not on filedocumented in this encounter Care Teams Groundskeeping Maintenance Relationship Specialty Start Date End Date Neyda Chacko MD [address] [place] [address] PCP - General Family Medicine 02/22/18 documented as of this encounter
--- OUTSIDE RECORDS SUMMARY | 2024-03-15 12:18 | XMS_ITS | Encounter Summary ---
Author Organization [employer] Address [address] [facility] 7t [place] [address] Care Team Providers Care Telephonic Nurse Name Role Phone Neyda Chacko MD Primary Care Provider [phone] Reason for Visit * Reason Onset Date Comments Durable Medical Equipment 01/26/2023 Encounter Details Date Type Department Care Team (Late st Contact Info) Description 01/26/2023 Telephone [facility] MEDICINE [address] [place], [place] [phone] Neyda Chacko MD [address] [place], [place] [phone] Durable Medical Equipment Social History Tobacco Use Types Packs/Day Years [...] encounter Miscellaneous Notes * Telephone Encounter - Neyda Chacko MD - 01/26/2023 5:23 PM EST Sent script * Telephone Encounter - Horace Khan - 01/26/2023 3:02 PM EST Tc from patients daughter requesting a new script for a blood glucose meter states current meter isgiving incorrect readings would like the patient to use [employer] Joelle 2 System documented in this encounter Plan of Treatment Upcoming Encounters Date Type Department Care Team (Late st Contact Info) Description 03/30/2024 11:00 AM EST Office Visit [facility] MEDICINE [address] [place] [address] Neyda Chacko MD [address] [place] [address] documented as of this encounter Visit Diagnoses Not on filedocumented in this encounter Additional Health Concerns Assessment Noted Time PHQ-9 Depression Total Score: 5 03/12/19 23 10:44 AM EST documented as of this encounter Care Teams Telephonic Nurse Relationship Specialty Start Date End Date Neyda Chacko MD [address] [place] [address] PCP - General Family Medicine 02/22/18 documented as of this encounter
--- OUTSIDE RECORDS SUMMARY | 2024-03-15 12:18 | XMS_ITS | Clinical Summary ---
Author Organization [address] [facility] Address [address] [place] [address] Phone Care Team Providers Care Handkerchief Sample Clerk Name Role Phone Unavailable Primary Care Provider Unavailabl e Allergies No known active allergies Social History Tobacco Use Types Packs/Day Years Used Date Smoking Tobacco: Never Assessed Sex and Gender Information Value Date Recorded Sex Assigned at Not on file Gender Identity Not on file Sexual Orientation Not on file Plan of Treatment Upcoming Encounters Date Type Department Care Team ([facility] Contact Info) Description 04/04/2024 10:00 AM EST Office Visit Orthopedic Surgery - [place] [address] [phone] Alan Crisostomo, DPM [address] [place] [address] Health Maintenance Due Date Last Done Comments Breast Cancer Screening 1960 DTaP,Tdap,and Td Vaccines (1 - Tdap) 1977 Cervical Cancer Screening: P ap Smear 1979 Zoster Vaccines (1 of 2) 2008 Pneumococcal Vaccine: 65+ Ye ars (1 of 1 - PCV) 2023 COVID-19 Vaccine ( - 2023-2 5 season) 2023 Influenza Vaccine (#1) 2023 Colorectal Cancer Screening: Colonoscopy 12/27/2023 Depression Screening 12/27/2023 Falls Risk Assessment 12/27/2023 Hepatitis C Screening 12/27/2023 Osteoporosis Screening (Bone Density Screening) 12/27/2023 Social Influencers of Health Screening 12/27/2023 RSV Immunization Patients 60 + Years Old (1 - 1-dose 75+ series) 2033 HIB Vaccines Aged Out No longer eligi ble based on patient's age to complete this topic HPV Vaccines Aged Out No longer eligi ble based on patient's age to complete this topic Hepatitis A Vaccines Aged Out No long er eligible based on patient's age to complete this topic Hepatitis B Vaccines Aged Out No long er eligible based on patient's age to complete this topic IPV Vaccines Aged Out No longer eligi ble based on patient's age to complete this topic MMR Vaccines Aged Out No longer eligi ble based on patient's age to complete this topic Meningococcal ACWY Vaccine Aged Out N o longer eligible based on patient's age to complete this topic Pneumococcal Vaccine: Pediat rics (0 to 5 Years) and At-Risk Patients (6 to 64 Years) Aged Out No longer eligible b ased on patient's age to complete this topic RSV Immunization Patients Un chaim 20 months Aged Out No longer eligible b ased on patient's age to complete this topic Varicella Vaccines Aged Out No longer eligible based on patient's age to complete this topic
== END 2024-03-15 10:52 | disposition home or self-care (01) ==
LOC: HO.MAMMO 10:51
PROVIDERS: PCP Family Medicine; Visit Provider Family Medicine
DX: N64.4 Mastodynia (principal)
CPT/HCPCS: 76642; 77062; 77066

== ENCOUNTER → 2024-03-15 11:00 | Outpatient (BNV) | payer OTHER, SELFPAY | PROVIDERS: PCP Family Medicine; Visit Provider Internal Medicine | DX: N63.31 Unspecified lump in axillary tail of the right breast (principal); R92.333 Mammographic heterogeneous density, bilateral breasts | CPT/HCPCS: 76882; 77066; G0279 ==

== ENCOUNTER 2024-04-11 08:19 | Outpatient (AMB) | payer OTHER, SELFPAY ==
[2024-04-11 08:20] VITALS: BP 141/69; PULSE 75; BMI 27.2
--- NOTE | 2024-04-11 08:20 | A.OFFVIS_ITS ---
Vital Signs 3 04/11/24 08:20 Height 5 ft 2 in Weight 149 lb BMI 27.2 BP 141/69 H Blood Pressure Location Rt brachial Position Sitting Pulse 75 Intake Visit Reasons: US Biopsy Right Axillary Mass Intake Note: Patient is seen in office for ultrasound biopsy consult, following right axilla mass. Pt c/o: right axillary mass, Bx is scheduled 04/12/2024 @ 10am at [facility] [place]. Bx sched:04/09/24 us/mm:03/15/24 Cut Off Machine Unloader Required: Yes Cut Off Machine Unloader Language: Operator Technician Services: Cut Off Machine Unloader Offered & Declined (Jeremie) Accompanied by: Grand Child Allergies pioglitazone [From [employer]] Allergy (Mild, Verified 04/11/24 08:30) EDEMA, unknown Medication List - Last Reconciled 04/11/24 by Walter Moon MD aspirin 81 mg PO QPM blood sugar diagnostic (FreeStyle Lite Strips) As directed blood-glucose meter (FreeStyle Lite Meter kit) As directed buspirone 30 mg PO QAM AND QHS cholecalciferol (vitamin D3) 50 mcg PO QAM cilostazol 50 mg PO BID empagliflozin (Jardiance) 25 mg PO QAM 30 days ferrous sulfate (Iron (ferrous sulfate)) 325 mg PO QAM furosemide (Lasix) 10 mg PO QAM glucagon 3 mg/actuation (Baqsimi) 3 mg intranasal ONCE insulin degludec (Tresiba FlexTouch U-200 insulin) 70 units (0.35 mL) subcut DAILY insulin lispro Inject 8-12 units prior to meals subcutaneously use as directed; insulin syringe-needle U-100 (BD Veo Insulin Syringe Ultra-Fine) 1 mL miscellaneous .3 times a day 90 days lancets (FreeStyle Lancets) 3 times a day lisinopril-hydrochlorothiazide 20-12.5 mg 2 tabs PO DAILY lorazepam 1-2 tabs. Max 2 tabs PO 2 times a day PRN; metformin ER 1,000 mg (2 x 500 mg) PO BID metoclopramide HCl 10 mg PO QIDACHS metoprolol tartrate 50 mg PO BID pantoprazole 40 mg PO BID pen needle, diabetic (BD Irais 2nd Gen Pen Needle) 5 times a day penicillin V potassium 500 mg PO BID 10 days rosuvastatin 40 mg PO BEDTIME 90 days semaglutide (Ozempic) 2 mg (0.75 mL) subcut QWEEK sennosides (senna) 17.2 mg (2 x 8.6 mg) PO BEDTIME PRN sucralfate (Carafate) 20 mL PO DAILY tramadol 50 mg PO DAILY PRN venlafaxine ER 150 mg PO QAM zolpidem 10 mg PO BEDTIME PRN Is last menstrual period known: Yes (2019) HPI Comments Details: 64-year-old female patient presenting for evaluation of a palpable mass in the right axilla which she 1st noted approximately 1 month ago. Since this time the lump has increased slightly in size in his associated with some minor discomfort with palpation. She subsequently was evaluated by diagnostic mammogram and ultrasound on 03/15/2024. This revealed no suspicious findings on mammogram however ultrasound did reveal a subdermal lesion corresponding to the palpable mass. This was felt to be suspicious for malignancy an ultrasound-guided core biopsy recommended. She denies a previous history of breast problems or breast surgery. Her family history is significant for 1 daughter with ovarian cancer. She denies any family history of breast cancer. She is . Menarche was the age of 10 and menopause at the age of 59. She is scheduled for this ultrasound- guided core 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 Obesity with body mass index of 30.0-39.9 Hypoglycemia associated with type 2 diabetes mellitus Diabetes type 2, uncontrolled Heart murmur COVID-19 vaccine administered Diabetic neuropathy associated with type 2 diabetes mellitus Background diabetic retinopathy associated with type 2 diabetes mellitus PATRICIA (obstructive sleep apnea) Hemorrhoids Asthma Type 2 diabetes mellitus with mild nonproliferative diabetic retinopathy without macular edema, bilateral Type 2 diabetes mellitus with hyperglycemia, with long-term current use of insulin Essential hypertension Dyslipidemia Menometrorrhagia Polypharmacy Depression Allergic rhinitis Venous insufficiency Anemia Obesity Constipation HTN (hypertension) Surgical History History of esophagogastroduodenoscopy (EGD) Hx of colonoscopy History of bilateral tubal ligation Family History Father No problems noted. Mother Heart disease HTN (hypertension) Diabetes Pacemaker Depression Family/Other Diabetes Daughter Cancer Social History Household Members: None Are you a primary behavioral health care manager to a significant other at home: No Do you presently have visiting nurse or other home services: No Alcohol intake: never Patient Tobacco Use Status: Never used Tobacco Sexual orientation: Straight/Heterosexual Gender identity: Female Female Reproductive History Menstrual Age of Menarche: 10 Total pregnancies: 7 (Breastfed all of her children) Number of Living Children: 6 (Breastfed all of her children) Review of Systems Const All systems reviewed & are unremarkable except as noted in HPI and below Denies chills, Denies fever(s), Denies headache(s), Denies poor appetite and Denies weakness ENT Denies headache(s) Card Denies chest pain, Denies irregular heart rhythm, Denies palpitations and Denies dyspnea Resp Denies cough, Denies excessive phlegm production and Denies dyspnea GI Denies abdominal pain, Denies bloating, Denies change in bowel habits, Denies constipation, Denies heartburn, Denies diarrhea, Denies nausea and Denies vomiting Denies urinary frequency and Denies nipple discharge Musc Denies back pain, Denies muscle weakness and Denies numbness Skin/Breast Details: Axillary mass right Denies breast skin changes, Denies breast pain, Denies breast mass, Denies changing lesions, Denies nipple discharge and Denies unusual bruising Neuro Denies headache(s), Denies numbness, Denies paresthesias and Denies weakness Psych Denies anxiety and Denies depression Endo Denies palpitations Dann/Lymph Denies lymphadenopathy Physical Exam Vital Signs: Last Vital Signs Pulse 75 04/11/24 08:20 BP 141/69 H 04/11/24 08:20 BMI result Body Mass Index 27.2 Const General: cooperative and no acute distress Nutritional Appearance: well nourished Orientation/consciousness: patient oriented x3 Limitations: no limitations HEENT Head: Yes normocephalic and Yes atraumatic Ears: hearing grossly normal bilaterally Chest Other: Breast exam deferred. Exam limited to right axilla. Palpable dermal lesion with central punctum noted in the lower axilla suggestive of a epidermal inclusion cyst measuring approximately 1.5 to 2 cm in diameter. No evidence of abscess or discharge. Slight tenderness to palpation is noted. Chest/axillae images: 2 1. Site of palpable abnormality right axilla. Resp Effort & Inspection: normal respiratory effort, no audible wheezes, no cough and no respiratory distress Cardio Jugular venous distension: no JVD GI Inspection: Yes normal to inspection Skin Other: Warm, dry, no rash Neuro General: patient oriented x3 Extrem General: Yes no clubbing, cyanosis or edema Assessment & Plan Assessment & Plan (1) Abnormal ultrasound of breast: Code(s): R92.8 - Other abnormal and inconclusive findings on diagnostic imaging of breast Category: Medical Plan 64-year-old female patient with no previous breast problems presenting with a palpable mass in the right axilla. This has been present for least 1 month and is gradually increasing in size. Workup with mammogram and ultrasound revealed no suspicious breast problems however in the axilla a subdermal lesion is identified. Examination does confirm a palpable mass in the right axilla which clinically appears to be an epidermal inclusion cyst. She was scheduled for an ultrasound-guided core biopsy tomorrow at the [facility]. I recommended follow-up examination in approximately 1 week to review the pathology results and discuss treatment options. Orders: Orders 2 US breast ndl core biopsy RT Today R92.8 - Other abnormal and inconclusive findings on diagnostic imaging of breast Coding Level of Care Code New Pt Level 4 (60650) Diagnoses Abnormal ultrasound of breast R92.8
--- OUTSIDE RECORDS SUMMARY | 2024-04-11 08:29 | XMS_ITS | Encounter Summary ---
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 Neyda Chacko MD [address] [place] [phone] Phone: tel: fax: Alan Crisostomo DPM [address] [address] Phone: tel: fax: Referral ID Status Reason Start Date Expiration Date V isits Requested Visits Authorized [id number] Closed Consult and Treat 12/27/2023 12/26/2024 1 1 Encounter Details Date Type Department Care Team (Late st Contact Info) Description 04/04/2024 10:00 AM EST Office Visit Orthopedic Surgery - [place] [address] [phone] Alan Crisostomo DPM [address] [address] Metatarsalgia of both feet (Primary Dx); Dermatophytosis of nail; Verruca plantaris; Type II diabetes mellitus with peripheral circulatory disorder (CMS/HCC); Diabetic mononeuropathy simplex (CMS/HCC); Pain in toe of left foot; Pain in toe of right foot Social History Tobacco Use Types Packs/Day Years Used Date Smoking Tobacco: Never Assessed Comments Unknown Sex and Gender Information Value Date Recorded Sex Assigned at Not on file Legal Sex Female 7:29 AM EST Gender Identity Not on file Sexual Orientation Not on file documented as of this encounter Last Filed Vital Signs Vital Sign Reading Time Taken Comments Blood Pressure - - Pulse - - Temperature - - Respiratory Rate - - Oxygen Saturation - - Inhaled Oxygen Concentration - - Weight 69.9 kg (154 lb) 04/04/2024 9:58 AM EST Height 157.5 cm (5' 2 ) 04/04/2024 9:58 AM EST Body Mass Index 28.17 04/04/2024 9:58 AM EST documented in this encounter Ordered Prescriptions Prescription Sig Dispense Quantity Refills Last Filled Start Date End Date clotrimazole (LOTRIMIN) 1 % cream Apply topically 2 (two) times a day. Nails and skin 30 g 3 04/04/2024 documented in this encounter Progress Notes * Alan Crisostomo DPM - 04/04/2024 10:00 AM EST Last PCP visit:Referring MD: Neyda Chacko MD 12/21/23 IDENTIFIER: Thomas is a 64 y.o. year old female who presents for consultation. CC: Foot pain HPI: Patient presents today for evaluation of her feet she notes that she is a type II diabetic she has numbness burning tingling to her feet she states that she has her nails elongated painful thickened to bother her regularly she has not skin multiple skin lesions on both feet she had them on and off for years states that they are very painful achy sometimes feels that she is walking small rocks denies trauma no other area ROS: GENERAL: Pt denies nausea, fever, vomiting, chills, or shortness of breath. Pt in NAD. CARDIOLOGY: pt denies chest pain, palpitations LUNGS: pt denies shortness of breath MUSCULOSKELETAL: See HPI, otherwise no joint pain or swelling, back pain, or muscle pain. SKIN: see HPI, otherwise no lesions, rash or itching NEURO: No persistent headache, weakness or numbness The remainder of the review of systems is noncontributory PAST MEDICAL HISTORY: There is no problem list on file for this patient. Type 2 diabetes hypertension anxiety depression SOCIAL HISTORY: Social History Tobacco Use Smoking status: Not on file Smokeless tobacco: Not on file Substance Use Topics Alcohol use: Not on file ACTIVE MEDICATIONS: No outpatient medications have been marked as taking for the 04/04/24 encounter (Office Visit) with Alan Crisostomo DPM. ALLERGIES: No Known Allergies PHYSICAL EXAM: Visit Vitals Ht 1.575 m (62 ) Wt 69.9 kg (154 lb) BMI 28.17 kg/m?? BSA 1.71 m?? PODIATRIC EXAMINATION: GENERAL: Patient appears well nourished, with NAD. VASCULAR: Dorsalis pedis pulses are 0/4 bilaterally and Posterior tibial pulses are 0/4 bilaterally. Capillary filling time within normal limits the digits. No pallor on elevation or rubor on dependency. No varicosities. Denies rest pain or claudication pain. NEUROLOGICAL: Sharp/dull sensation , protective sensation 7/10 with 5.07 semmes jyothi bilaterally, vibratory sensation with tuning fork intact to the tibial tuberosity. ORTHOPEDIC: Good muscle strength 5/5 of all flexors and extensors. Dorsi flexion of ankle ,10 degrees, plantar flexion WNL. No muscle atrophy. DERMATOLOGICAL:. Toenails: Left Toenail(s) 1-5: Crumbling upon debridement, subungual debris, discoloration, dystrophy, elongation, mycotic appearance, onychomycosis, pain and thickening. Right Toenail(s) 1-5: Crumbling upon debridement, subungual debris, discoloration, dystrophy, elongation, mycotic appearance, onychomycosis, pain and thickening. Annular scaling bilateral feet moccasin distribution Skin thinning texture shiny appearance diffuse hyperpigmentation bilaterally pedal hair decreased Skin lesions loss of skin lines deep central cores pain with lateral compression pinpoint bleeding on debridement 3 lesions right foot 2 lesions left foot ball of her foot BIOMECHANICS: Ankle ROM WNL, STJ ROM wnl, MTJ ROM wnl, 1st MPJ ROM wnl. Pain with palpation patient reports worsening diffuse pain in the balls of both of her feet she states that as well as been bothering her for prolonged period time of metatarsal bones 2 through 5 bilaterally with fat pad atrophy bilateral IMAGING: IMPRESSION: 1. Metatarsalgia of both feet 2. Dermatophytosis of nail 3. Verruca plantaris 4. Type II diabetes mellitus with peripheral circulatory disorder (CMS/HCC) 5. Diabetic mononeuropathy simplex (CMS/HCC) 6. Pain in toe of left foot 7. Pain in toe of right foot PLAN: Pt was seen and examined, history reviewed. Discussed with patient regarding proper glucose control, exercise, and diet. Explained to patient proper shoe gear, and importance of daily foot checks. I reviewed neuropathy and why it occurs in diabetics. I educated the patient on proper blood sugar control and the importance of an HgBA1c of less than 7.0%. I reviewed the signs and symptoms of neuropathy with the patient Salicylic acid prescribed treatment options verrucous plantaris were discussed and reviewed including definitive diagnosis with biopsy Discussed with patient concerns for biopsy as it may lead to scar tissue formation but would have surgical cure and definitive diagnosis patient declined Would recommend destructive procedures patient is willing to proceed Salicylic acid was prescribed to be used at home daily at night Follow-up in 1 month [id number]: Destruction of Plantar Verrucae: Verbal informed consent was obtained from the patient. Debrided wart(s) with a scalpel. Aggressive debridement dermal curette and 15 scalpel blade followed by chemical destruction and cauterization with silver nitrate sticks. Debridement of mycotic toenails 6-10: Verbal informed consent was obtained from the patient. Greater than 6 nails were aseptically debrided in thickness and length with nail nippers Alan Crisostomo DPM documented in this encounter Plan of Treatment Upcoming Encounters Date Type Department Care Team (Late st Contact Info) Description 06/07/2024 11:00 AM EDT Office Visit Orthopedic Surgery - [place] [address] [phone] Alan Crisostomo DPM [address] [address] documented as of this encounter Visit Diagnoses Diagnosis Metatarsalgia of both feet- Primary Dermatophytosis of nail Verruca plantaris Plantar wart Type II diabetes mellitus with peripheral circulatory disorder (CMS/HCC) Type II or unspecified type diabetes mellitus with peripheral circulatory disorders, not stated as uncontrolled Diabetic mononeuropathy simplex (CMS/HCC) Type II or unspecified type diabetes mellitus with neurological manifestations, not stated as uncontrolled Pain in toe of left foot Pain in soft tissues of limb Pain in toe of right foot Pain in soft tissues of limb documented in this encounter Care Teams Executive Pastry Chef Relationship Specialty Start Date End Date Physician, Pcp Unknown PCP - General 03/20/24 documented as of this encounter
--- OUTSIDE RECORDS SUMMARY | 2024-04-11 08:29 | XMS_ITS | Encounter Summary ---
Author Organization [employer] Address [address] [facility] 7t [place] [address] Care Team Providers Care Field Education Coordinator Name Role Phone Neyda Chacko MD Primary Care Provider Encounter Details Date Type Department Care Team (Latest Contact Info) Description 05/21/2020 Abstract [facility] Dental, Provider, DDS Social History Tobacco Use Types Packs/Day Years Used Date Smoking Tobacco: Never Assessed Comments Unknown Sex and Gender Information Value Date Recorded Sex Assigned at Female 12/22/2021 10:14 AM EDT Legal Sex Female 10:14 AM EDT Gender Identity Female 12/22/2021 10:14 AM EDT Sexual Orientation Straight 12/22/2021 10 :14 AM EDT documented as of this encounter Plan of Treatment Not on file documented as of this encounter Visit Diagnoses Not on filedocumented in this encounter Care Teams Field Education Coordinator Relationship Specialty Start Date End Date Neyda Chacko MD [address] [place] [phone] PCP - General Family Medicine 02/22/18 documented as of this encounter
--- OUTSIDE RECORDS SUMMARY | 2024-04-11 08:29 | XMS_ITS | Encounter Summary ---
Author Organization [employer] Address [address] [place] [address] 7t [place] [address] Care Team Providers Care Beater Out Name Role Phone Neyda Chacko MD Primary Care Provider Reason for Visit * Reason Comments Med Refill Encounter Details Date Type Department Care Team (Late st Contact Info) Description 01/28/2022 Refill [facility] MEDICINE 230 [place] [address] [facility] 230 [place] [address] Type 2 diabetes mellitus with hyperglycemia (CMS/HCC) [...] (CMS/HCC) documented in this encounter Care Teams Beater Out Relationship Specialty Start Date End Date Neyda Chacko MD 230 [place], [place] [phone] PCP - General Family Medicine 02/22/18 documented as of this encounter
--- OUTSIDE RECORDS SUMMARY | 2024-04-11 08:29 | XMS_ITS | Encounter Summary ---
Author Organization [employer] Address [address] [facility] 7t [place] [address] Care Team Providers Care Tuna Purse Seiner Name Role Phone Neyda Chacko MD Primary Care Provider [phone] Encounter Details Date Type Department Care Team (Latest Contact Info) Description 01/03/2019 Abstract [facility] CONVERSIONS Dental, Provider, DDS Social History [...] on filedocumented in this encounter Care Teams Tuna Purse Seiner Relationship Specialty Start Date End Date Neyda Chacko MD [address] [place] [phone] PCP - General Family Medicine 02/22/18 documented as of this encounter
--- OUTSIDE RECORDS SUMMARY | 2024-04-11 08:29 | XMS_ITS | Encounter Summary ---
Author Organization [employer] Address [address] [facility] 7t [place] [address] Care Team Providers Care Continuous Miner Name Role Phone Neyda Chacko MD Primary Care Provider [phone] Reason for Visit * Reason Onset Date Comments Durable Medical Equipment 01/26/2023 Encounter Details Date Type Department Care Team (Late st Contact Info) Description 01/26/2023 Telephone [facility] 230 [place], [place] [phone] Neyda Chacko MD 230 [place], [place] [phone] Durable Medical Equipment Social History Tobacco Use [...] readings would like the patient to use [employer] 2 System documented in this encounter Plan of Treatment Not on file documented as of this encounter Visit Diagnoses Not on filedocumented in this encounter Additional Health Concerns Assessment Noted Time PHQ-9 Depression Total Score: 5 03/12/19 23 10:44 AM EST documented as of this encounter Care Teams Continuous Miner Relationship Specialty Start Date End Date Neyda Chacko MD 230 [place] [address] PCP - General Family Medicine 02/22/18 documented as of this encounter
--- OUTSIDE RECORDS SUMMARY | 2024-04-11 08:29 | XMS_ITS | Encounter Summary ---
Author Organization [employer] Address [address] [facility] 7t [place] [address] Care Team Providers Care Section Cutter Name Role Phone Neyda Chacko MD Primary Care Provider [phone] Encounter Details Date Type Department Care Team (Late st Contact Info) Description 01/26/2023 Orders Only [facility] MEDICINE 230 [place], [place] [phone] Neyda Chacko MD 230 [place], [place] [phone] Social History Tobacco Use Types Packs/Day Years [...] documented as of this encounter Care Teams Section Cutter Relationship Specialty Start Date End Date Neyda Chacko MD 230 [place] [address] PCP - General Family Medicine 02/22/18 documented as of this encounter
--- OUTSIDE RECORDS SUMMARY | 2024-04-11 08:30 | XMS_ITS | Encounter Summary ---
Author Organization [employer] Address [address] [facility] 7t [place] [address] Care Team Providers Care Chemical Treatment Plant Technician Name Role Phone Neyda Chacko MD Primary Care Provider [phone] Encounter Details Date Type Department Care Team ([facility] st Contact Info) Description 12/16/2023 Orders Only [facility] MEDICINE 230 [place], [place] [phone] Neyda Chacko MD 230 [place], [place] [phone] Leukopenia, unspecified type (Primary Dx) Social History [...] on file documented as of this encounter Procedures Procedure Name Priority Date/Time Associated Diagnosis Comments PATHOLOGIST REVIEW - CBC Routine 12/17/2023 12:02 PM EDT Leukopenia, unspecified type CBC WITH AUTO DIFFERENTIAL Routine 12/17/2023 12:02 PM EDT Leukopenia, unspecified type documented in this encounter Results * Pathologist Review - CBC (12/17/2023 12:02 PM EDT) Pathologist Review - CBC SEE NOTE [facility] Comment:Peripheral blood joshua ments are normal appearing.- Yash Moreno M.D. Pathology Blood Venous blood specimen / Unknown 12/17/2023 12:02 PM EDT 12/17/2023 1:19 PM EDT us Neyda Chacko MD LAB BLOOD ORDERABLES Final Resul t [facility] [address] [place] [address] [phone] * (ABNORMAL) CBC auto differential (12/17/2023 12:02 PM EDT) White Blood Count 3.7(L) 4.8 - 10.8 X10*3/uL [facility] Red Blood Count 4.47 4.20 - 5.50 X10*6/uL [facility] Hemoglobin 13.0 12.0 - 16.0 g/dl [facility] Hematocrit 38.4 37.0 - 47.0 % [facility] Mean Corpuscular Volume 85.9 80.0 - 98.0 fL [facility] Mean Corpuscular Hemoglobin 29.1 27.0 - 33.0 pg [facility] Mean Corpuscular HGB Conc 33.9 31.0 - 35.0 g/dl [facility] Red Cell Distribution Width 11.9 11.0 - 16.0 % [facility] Platelet Count 209 160 - 400 X10*3/uL [facility] Mean Platelet Volume 9.7 9.4 - 12.3 fL [facility] Neutrophils Percent Auto 55.4 45 - 73 % [facility] Imm Gran Pct Auto 0.3 0.0 - 0.4 % [facility] Lymphocytes Percent Auto 33.4 20 - 40 % [facility] Monocytes Percent Auto 8.0 2 - 11 % [facility] Eosinophils Percent Auto 2.4 0 - 4 % [facility] Basophils Percent Auto 0.5 0 - 2 % [facility] NRBC Pct Auto 0.0 0.0 - 0.2 /100WBC [facility] Neutrophils Absolute Auto 2.1 2.0 - 8.3 x10*3/uL [facility] Imm Gran Abs Auto 0.01 0.00 - 0.03 X10*3/uL [facility] Lymphocytes Absolute Auto 1.3 1.2 - 4.9 X10*3/uL [facility] Monocytes Absolute Auto 0.3 0.1 - 1.2 X10*3/uL [facility] Eosinophils Absolute Auto 0.1 0.0 - 0.4 X10*3/uL [facility] Basophils Absolute Auto 0.0 0.0 - 0.2 X10*3/uL [facility] NRBC Abs Auto 0.000 0.0 - 0.012 X10*3/uL [facility] Blood Venous blood specimen / Unknown 12/17/2023 12:02 PM EDT 12/17/2023 1:19 PM EDT Neyda Chacko MD LAB BLOOD ORDERABLES Final Resul t [facility] [address] [place] [phone] [phone] documented in this encounter Visit Diagnoses Diagnosis Leukopenia, unspecified type- Primary documented in this encounter Additional Health Concerns Assessment Noted Time PHQ-9 Depression Total Score: 7 06/15/19 24 10:57 AM EDT documented as of this encounter Care Teams Chemical Treatment Plant Technician Relationship Specialty Start Date End Date Neyda Chacko MD [address] [place] [phone] PCP - General Family Medicine 02/22/18 documented as of this encounter
--- OUTSIDE RECORDS SUMMARY | 2024-04-11 08:30 | XMS_ITS | Clinical Summary ---
Author Organization 175 [facility] Address 175 [place] [address] Phone Care Team Providers Care Academic Director Name Role Phone Physician, Pcp Unknown Primary Care Provider Heena vailable Allergies No known active allergies Medications clotrimazole (LOTRIMIN) 1 % cream Apply topically 2 (two) times a day. Nails and skin 30 g 3 5 05/05/19 25 Active Encounters Date Type Department Care Team Description 04/04/2024 10:00 AM EST Office Visit Orthopedic Surgery [facility] 250 175 [facility] [address] [place] [phone] Alan Crisostomo, DPM Metatarsalgia of both feet (Primary Dx); Dermatophytosis of nail; Verruca plantaris; Type II diabetes mellitus with peripheral circulatory disorder (CMS/HCC); Diabetic mononeuropathy simplex (CMS/HCC); Pain in toe of left foot; Pain in toe of right foot from Last 3 Months Social History Tobacco Use Types Packs/Day Years Used Date Smoking Tobacco: Never Assessed Comments Unknown Sex and Gender Information Value Date Recorded Sex Assigned at Not on file Legal Sex Female 7:29 AM EST Gender Identity Not on file Sexual Orientation Not on file Last Filed Vital Signs Vital Sign Reading Time Taken Comments Blood Pressure - - Pulse - - Temperature - - Respiratory Rate - - Oxygen Saturation - - Inhaled Oxygen Concentration - - Weight 69.9 kg (154 lb) 04/04/2024 9:58 AM EST Height 157.5 cm (5' 2 ) 04/04/2024 9:58 AM EST Body Mass Index 28.17 04/04/2024 9:58 AM EST Plan of Treatment Upcoming Encounters Date Type Department Care Team ([facility] st Contact Info) Description 06/07/2024 11:00 AM EDT Office Visit Orthopedic Surgery - [place] 250 175 [facility] 250 [place] [address] Alan Crisostomo, DPM [address] [address] Health Maintenance Due Date Last Done Comments Breast Cancer Screening 1958 Diabetes: Annual GFR (Glomerular Filtration Rate) 1958 Diabetes: Annual Foot Exam 1968 Diabetes: Annual Retina Eye Exam 1968 Hepatitis A Vaccines (1 of 2 - Risk 2-dose series) 1977 RSV Immunization Patients 60+ Years Old (1 - Risk 60-74 years 1-dose series) 2018 Cholesterol Screening (Lipid Panel) 12/27/2023 Colorectal Cancer Screening: Colonoscopy 12/27/2023 Falls Risk Assessment 12/27/2023 Hepatitis C Screening 12/27/2023 Medicare Annual Wellness Visit 12/27/2023 Osteoporosis Screening (Bone Density Screening) 12/27/2023 Social Influencers of Health Screening 12/27/2023 Diabetes: Annual Urine Albumin-Creatinine Ratio (uACR) 04/04/2024 Hypertension/CHF/CAD Annual BMP Blood Test 04/04/2024 Depression Screening 06/14/2024 06/15/2023 Diabetes: Blood Sugar Control Test (HGBA1C) 09/27/2024 03/30/2024 DTaP,Tdap,and Td Vaccines (5 - Td or Tdap) 08/08/2031 08/07/2021, 04/07/2011, 08/20/2005, Additional history exists Hepatitis B Vaccines Completed 10/02/2013, 07/03/2013, 07/19/2012 Zoster Vaccines Completed 10/04/2020, 08/01/2020 Pneumococcal Vaccine: 50+ Years Completed 10/07/2022, 08/20/2005, 11/07/1999 COVID-19 Vaccine [...] patient's age to complete this topic Meningococcal B Vacine Aged Out No lo nger eligible based on patient's age to complete this topic RSV Immunization Patients Under 20 months Aged Out No longer eligible based on patient's age to complete this topic Varicella Vaccines Aged Out No longer eligible based on patient's age to complete this topic Insurance [id number] OPTIONS Care Teams Academic Director Relationship Specialty Start Date End Date Physician, Pcp Unknown PCP - General 03/20/24
--- OUTSIDE RECORDS SUMMARY | 2024-04-11 08:30 | XMS_ITS | Encounter Summary ---
Author Organization [employer] Address 75 [facility] 7t [place] [address] Care Team Providers Care Aviation Safety Inspector Name Role Phone Neyda Chacko MD Primary Care Provider [phone] Reason for Visit * Reason Onset Date Comments Appointment Request 02/19/2023 Encounter Details Date Type Department Care Team ([facility] st Contact Info) Description 02/19/2023 Telephone [facility] MEDICINE 230 [place], [place] [phone] Neyda Chacko MD 230 [place], [place] [phone] Appointment Request Social History Tobacco Use Types [...] daughter requesting to reschedule appt for 02/19 [facility] 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
--- OUTSIDE RECORDS SUMMARY | 2024-04-11 08:30 | XMS_ITS | Encounter Summary ---
Author Organization [employer] Address 75 [facility] 7t [place] [address] Care Team Providers Care Pole Frame Construction Worker Name Role Phone Neyda Chacko MD Primary Care Provider [phone] Encounter Details Date Type Department Care Team ([facility] st Contact Info) Description 03/10/2022 Telephone [facility] MEDICINE 230 [place], [place] [phone] Neyda Chacko MD 230 [place], [place] [phone] Social History Tobacco Use Types Packs/Day Years [...] on filedocumented in this encounter Care Teams Pole Frame Construction Worker Relationship Specialty Start Date End Date Neyda Chacko MD 230 [place] [address] PCP - General Family Medicine 02/22/18 documented as of this encounter
--- OUTSIDE RECORDS SUMMARY | 2024-04-11 08:30 | XMS_ITS | Encounter Summary ---
Author Organization [employer] Address [address] [facility] 7t [place] [address] Care Team Providers Care Geophysical Support Specialist Name Role Phone Neyda Chacko MD Primary Care Provider [phone] Encounter Details Date Type Department Care Team (Late st Contact Info) Description 03/12/2022 Abstract [facility] MEDICINE 230 [place], [place] [phone] Neyda Chacko MD 230 [place], [place] [phone] Social History Tobacco Use Types Packs/Day Years [...] documented as of this encounter Care Teams Geophysical Support Specialist Relationship Specialty Start Date End Date Neyda Chacko MD 230 [place] [address] PCP - General Family Medicine 02/22/18 documented as of this encounter
--- OUTSIDE RECORDS SUMMARY | 2024-04-11 08:30 | XMS_ITS | Encounter Summary ---
Author Organization [employer] Address [address] [facility] 7[address] [place] [address] Care Team Providers Care Construction Inspector Name Role Phone Neyda Chacko MD Primary Care Provider [phone] Encounter Details Date Type Department Care Team (Late st Contact Info) Description 03/06/2022 Orders Only [facility] MEDICINE [address] [place], [place] [phone] Misa Tillman LPN Social History Tobacco Use [...] on filedocumented in this encounter Care Teams Construction Inspector Relationship Specialty Start Date End Date Neyda Chacko MD [address] [place] [address] PCP - General Family Medicine 02/22/18 documented as of this encounter
--- OUTSIDE RECORDS SUMMARY | 2024-04-11 08:31 | XMS_ITS | Encounter Summary ---
Author Organization [employer] Address 75 [facility] 7t [place] [address] Care Team Providers Care Hand Fretted Instrument Maker Name Role Phone Neyda Chacko MD Primary Care Provider [phone] Reason for Referral * Imaging (Routine) - Authorized Specialty Diagnoses / Procedures Referred By Contac t Referred To Contact Cardiology Diagnoses Peripheral venous insufficiency Peripheral arterial occlusive disease (CMS/HCC) Procedures Vascular US lower extremity arterial duplex bilateral with VEENA Neyda Chacko MD [address] [place] [address] Phone: tel: fax: [address] Phone: tel: fax: Referral ID Status Reason Start Date Expiration Date Visits Requested Visits Authorized [id number] Authorized Perform Procedure 04/01/2024 04/01/2025 1 1 * Imaging (Routine) - Authorized Specialty Diagnoses / Procedures Referred By Contac t Referred To Contact Cardiology Diagnoses Peripheral venous insufficiency Peripheral arterial occlusive disease (CMS/HCC) Procedures VASC US Lower Extremity Venous Insufficiency Bilateral Neyda Chacko MD [address] [place] [address] Phone: tel: fax: [address] Phone: tel: fax: Referral ID Status Reason Start Date Expiration Date Visits Requested Visits Authorized [id number] Authorized Perform Procedure 04/01/2024 04/01/2025 1 1 * Imaging (Routine) - Authorized Specialty Diagnoses / Procedures Referred By Contac t Referred To Contact Radiology Diagnoses Metabolic dysfunction-associated steatotic liver disease (MASLD) Procedures US Abdomen Comp w elastography Neyda Chacko MD [address] [place] [address] Phone: tel: fax: [address] Phone: tel: fax: Referral ID Status Reason Start Date Expiration Date V isits Requested Visits Authorized [id number] Authorized 04/01/2024 04/01/2025 1 1 Encounter Details Date Type Department Care Team (Late st Contact Info) Description 03/30/2024 11:00 AM EST Office Visit [facility] MEDICINE [address] [place] [id number] Neyda Chacko MD [address] [place] [address] Type 2 diabetes mellitus with hyperglycemia, with long-term current use of insulin (CMS/HCC) (Primary Dx); Essential hypertension; Mass of axillary tail of right breast; Transaminitis; Dyslipidemia; Metabolic dysfunction-associate d steatotic liver disease (MASLD); Peripheral venous insufficiency; Peripheral arterial occlusive disease (CMS/HCC); Weight loss; Dietary counseling; Exercise counseling; Overweight Social History Tobacco Use Types Packs/Day Years [...] AM EDT documented as of this encounter Last Filed Vital Signs Vital Sign Reading Time Taken Comments Blood Pressure 127/51 03/30/2024 11:34 AM EST Pulse 70 03/30/2024 11:34 AM EST Temperature 36.2 ??C (97.1 ??F) 03/30/2024 11:[address] Respiratory Rate 20 03/30/2024 11:34 AM EST Oxygen Saturation 98% 03/30/2024 11:34 AM EST Inhaled Oxygen Concentration - - Weight 68.3 kg (150 lb 9.6 oz) 03/30/2024 11:34 AM EST Height - - Body Mass Index 28.76 12/21/2023 11:40 AM EDT documented in this encounter Progress Notes * Neyda Chacko MD - 03/30/2024 11:00 AM EST Subjective Jaimee Guzman is a 64 y.o. female who has diabetes mellitus type 2, hypertension, dyslipidemia, PAD, and anxiety/depression, and patient presents for follow up of chronic conditions. Background: Our last encounter was 12/21/2023. Discussed about weight loss, right axillary pain and mass, her finger joint pain, wrist pain, and onychomycosis. Referred to continuous yarn dyeing machine operator. Ordered diagnostic mammography. Interval history: 01/25/24 EMG/NCT showed hjze-ig-aohkpfsk bilateral median neuropathy and mild left ulnar neuropathy. 03/15/24 Mammography, diagnostic MPRESSION: Hypoechoic subdermal solid mass in the right axilla. Recommend histology with ultrasound-guided core needle biopsy at this time. The findings and recommendations were discussed with the patient the procedure will be scheduled. ASSESSMENT: BI-RADS BI-RADS 4 - Suspicious finding RECOMMENDATION: Biopsy recommended She is scheduled to see Dr. Moon on 04/12/24. Today: Patient accompanied by grandson. Grandson is concerned and would like to know which medications should the patient stop before her surgery. Patient is eating good, frequent small meals. She drinks nutritional supplement, Glucerna, or BoostGlucose Control, but not consistently. Patient denies having nipple drainage/discharge. She states her breast is painful with pressure / touch. On 08/2024 she was an appointment with her Cup Trimming Machine Operator. She does not tolerate the compression socks, when she takes them off she feels pain. Eye Exam: She has an appointment in 05/2024. Pt has been advised to stop Ibuprofen, aspirin, and cilostazol, one week before surgery. Review of Systems Constitutional: Positive for appetite change. Negative for activity change and fever. Respiratory: Negative for shortness of breath. Cardiovascular: Negative for chest pain. Psychiatric/Behavioral: The patient is nervous/anxious. Objective Vitals: 03/30/24 1134 BP: 127/51 Pulse: 70 Resp: 20 Temp: 97.1 ??F (36.2 ??C) TempSrc: Temporal SpO2: 98% Weight: 150 lb 9.6 oz (68.3 kg) Physical Exam Constitutional: General: She is not in acute distress. Appearance: Normal appearance. She is not ill-appearing. HENT: Head: Normocephalic and atraumatic. Mouth/Throat: Mouth: Mucous membranes are moist. Eyes: Extraocular Movements: Extraocular movements intact. Pupils: Pupils are equal, round, and reactive to light. Cardiovascular: Rate and Rhythm: Normal rate and regular rhythm. Heart sounds: Murmur heard. Systolic murmur is present. Comments: Left leg edema more significant than right leg Pulmonary: Effort: Pulmonary effort is normal. No respiratory distress. Breath sounds: Normal breath sounds. No wheezing or rhonchi. Musculoskeletal: Left lower le+ Edema present. Skin: General: Skin is warm. Neurological: Mental Status: She is alert. Mental status is at baseline. Psychiatric: Mood and Affect: Mood normal. Results: Lab Results Component Value Date NA 142 12/15/2023 K 4.0 12/15/2023 CL 107 12/15/2023 CO2 30 (H) 12/15/2023 BUN 18 (H) 12/15/2023 CREATININE 0.68 12/15/2023 EGFR >60 12/15/2023 GLUCOSE 161 (H) 12/15/2023 TOTALBILIRUB 0.2 12/15/2023 AST 34 (H) 12/15/2023 ALT 49 (H) 12/15/2023 TOTPROTEIN 6.9 12/15/2023 ALB 3.9 12/15/2023 ALP 59 12/15/2023 Lab Results Component Value Date TRIG 45 12/15/2023 CHOL 113 12/15/2023 LDLCHOLCAL 51 12/15/2023 HDL 53 12/15/2023 Lab Results Component Value Date HGBA1C 7.7 (A) 03/30/2024 MICROALBUR 21.0 12/15/2023 CREATUR 75.29 12/15/2023 MICROALBCREU 27.8 12/15/2023 Lab Results Component Value Date WBC 3.7 (L) 12/17/2023 HGB 13.0 12/17/2023 HCT 38.4 12/17/2023 PLT 209 12/17/2023 MCV 85.9 12/17/2023 The ASCVD Risk score (Bronx DK, et al., 2019) failed to calculate for the following reasons: The valid total cholesterol range is 130 to 320 mg/dL Unable to determine if patient is Non- FIB-4 Calculation: 1.51 at 12/17/2023 12:02 PM Calculated from: SGOT/AST: 34 U/L at 12/15/2023 11:00 AM SGPT/ALT: 49 U/L at 12/15/2023 11:00 AM Platelets: 209 X10*3/uL at 12/17/2023 12:02 PM Age: 63 years Screening and Health Care Maintenance: PHQ-2/9 Score: Patient Health Questionnaire-9 Score: 7 (06/15/2023 10:57 AM) Patient Health Questionnaire-2 Score: 2 (06/15/2023 10:57 AM) Thoughts that you would be better off or hurting yourself in some way: Not at all (06/15/2023 10:57 AM) JOHANA-7 Score: JOHANA-7 Total Score: 9 (03/30/2024 11:35 AM) Health Maintenance Due Topic Date Due Hepatitis A Vaccines (1 of 2 - Risk 2-dose series) Never done RSV Patients and Patients Aged 60 years or older (1 - Risk 60-74 years 1-dose series) Never done Diabetes: Foot Exam 10/08/2023 Eye Exam 12/26/2023 Depression Screening 06/14/2024 SDOH Screening 06/14/2024 Diabetes: Hemoglobin A1C 06/27/2024 Assessment/Plan Problem List Items Addressed This Visit Type 2 diabetes mellitus (CMS/HCC) - Primary -A1C 7.7% on 03/30/24, no significant change from 7.9% on 12/21/23 -Previously following with [facility] endocrinology, discharged in May 2023 due to stability -Continue Tresiba 70 units qAM (discrepancy from account advisor's note) -Continue Humalog 10 units before breakfast, 8 with lunch, 25 with dinner, 5-[address] Last [address]. Grey's recommendation was 8-12 units with PO intake, 4 times per day. -Continue Ozempic 2 mg weekly; consider decreasing its dose due to poor PO intake and weight loss -Continue Metformin 1g bid -Continue Jardiance 25 mg daily -Continue working on lifestyle modifications. -Last eye exam: 12/[address] 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 Plantar wart. Peripheral neuropathy. She has diabetic footwear. -Last FLP: 12/15/23 TC 113 ; TG 45 ; HDL 53 ; LDL 51. -Last microalbumin test: 12/15/23 UACR 27.8, early mild microalbuminuria Relevant Orders POCT glucose manually resulted (Completed) POCT glycosylated hemoglobin (Hgb A1c) (Completed) Dyslipidemia - most recent lipid profile 12/15/23 - current medication: Rosuvastatin 40 mg at bedtime - continue working on lifestyle modifications - continue current medication Essential hypertension -Goal BP < 140/90 per JNC-8 and [...] up in 3 mo or sooner prn Peripheral arterial occlusive disease (CMS/HCC) -Followed by [facility] provider -most recent PAWAN doppler on 08/13/21, moderate stenosis in b/l SFA and popliteal arteries -continue working on risk factor management -pt has been on cilostazol since 2016 - Ordered VASC US Lower Extremity Venous Insufficiency Bilateral - Ordered Vascular US lower extremity arterial duplex bilateral with VEENA Relevant Orders VASC US Lower Extremity Venous Insufficiency Bilateral Vascular US lower extremity arterial duplex bilateral with VEENA Peripheral venous insufficiency s/p laser ablation of right GSV in 11/2013 and left GSV in 12/2013. -Last venous US on 05/23/20 -Continue current management -Will request update on venous study - Ordered VASC US Lower Extremity Venous Insufficiency Bilateral - Ordered Vascular US lower extremity arterial duplex bilateral with VEENA Relevant Orders VASC US Lower Extremity Venous Insufficiency Bilateral Vascular US lower extremity arterial duplex bilateral with VEENA Weight loss - most likely due to medications and depression, and now possible breast cancer - consider decreasing GLP1RA - continue nutritional supplement Mass of axillary tail of right breast - scheduled for biopsy with Dr. Moon on 04/12/14 - stop aspirin, NSAID and cilostazol 5-7 days prior Transaminitis Metabolic dysfunction-associated steatotic liver disease (MASLD) - Last liver test: Nov 2023 - Last US / elastography - FIB4 index 1.51 - GI: [facility] - continue working on lifestyle modifications - continue surveillance study - Ordered US Abdomen Comp w elastography Relevant Orders US Abdomen Comp w elastography Other Visit Diagnoses Dietary counseling Exercise counseling Overweight Allergies Allergen Reactions Pioglitazone Other reaction(s): unspecified Current Outpatient Medications Medication Instructions acetaminophen (TYLENOL) 500 mg, Oral, Every 6 hours PRN Aspirin Low Dose 81 mg, Oral, Nightly Baqsimi Two Pack 3 MG/DOSE nasal powder USE 1 SPRAY (3MG) IN ONE NOSTRIL FOR A PATIENT WITH SEVERE HYPOGLYCEMIA WHO IS NOT RESPONSIVE AND UNABLE SELF-TREAT WITH GLUCOSE. AFTERWARDS TURN ON SIDE. MAY REPEAT IN 15MINUTES IF PATIENT DOES NOT RESPOND. Blood Glucose Monitoring Suppl (ViewfinityStyle Lodi Lite) w/Device kit USE DIRECTED Blood Pressure Monitor kit Use to check blood pressure daily as directed busPIRone (Buspar) 30 MG tablet TAKE 1 TABLET BY MOUTH TWICE DAILY IN THE MORNING AND AT BEDTIME Carafate 1 GM/10ML suspension TAKE 20ML BY MOUTH EVERY DAY cilostazol (Pletal) 50 MG tablet TAKE 1 TABLET BY MOUTH TWICE DAILY IN THE MORNING AND IN THE EVENING 30 minutos antes o 2 horas despues del desayuno y la director of community life Continuous Blood Gluc Toe Stapler (FreeStyle Joelle 2 Coram) device Use as directed Continuous Blood Gluc Sensor (FreeStyle Joelle 2 Sensor) misc Use as directed D3 Super Strength 50 mcg, Oral, Every morning Easy Touch Lancets 33G/Twist misc USE UP TO FIVE TIMES DAILY TO TEST BLOOD SUGAR Ferrous Sulfate (iron) 325 (65 Fe) MG tablet TAKE 1 TABLET BY MOUTH EVERY MORNING FREESTYLE LITE test strip USE TO TEST 5 TIMES DAILY glucose blood (FreeStyle Precision Augustus Test) test strip Use to test blood sugar up to 5 times daily, as directed ibuprofen 600 mg, Oral, Every 6 hours PRN Insulin Lispro 12 Units, Subcutaneous, 3 times daily before meals, INJECT 8-12 UNITS SUBCUTANEOUSLYBEFORE MEALS. Insulin Syringe-Needle U-100 (BD Veo Insulin Syringe U/F) 31G X 15/64 0.5 ML misc USE THREE TO FOUR TIMES DAILY WITH humalog Jardiance 25 MG TAKE 1 TABLET BY MOUTH EVERY MORNING lisinopril-hydroCHLOROthiazide 20-12.5 MG tablet TAKE 2 TABLETS BY MOUTH ONCE DAILY AT NOON metFORMIN XR (Glucophage-XR) 500 MG 24 hr tablet TAKE 2 TABLETS BY MOUTH TWICE DAILY IN THE MORNINGAND EVENING metoclopramide (Reglan) 10 MG tablet 1 tablet, Oral, Every 8 hours metoprolol tartrate (Lopressor) 50 MG tablet TAKE 1 TABLET BY MOUTH TWICE DAILY IN THE MORNING AND IN THE EVENING WITH MEALS Ozempic (2 MG/DOSE) 2 mg, Subcutaneous, Weekly, IN THE ABDOMEN, THIGHS OR UPPER ARM. ROTATE INJECTION SITES. pantoprazole (ProtoNix) 40 MG EC tablet TAKE 1 TABLET BY MOUTH TWICE A DAY Pentips 32G X 4 MM misc USE ONCE DAILY rosuvastatin (CRESTOR) 40 mg, Oral, Nightly Senna-Time 8.6 MG tablet TAKE 2 TABLETS BY MOUTH EVERY DAY AT BEDTIME NEEDED FOR CONSTIPATION traMADol (Ultram) 50 MG tablet TAKE 1 TABLET BY MOUTH ONCE DAILY NEEDED FOR SEVERE PAIN Tresiba FlexTouch 200 UNIT/ML injection Administer 70 units subcutaneously daily venlafaxine XR (EFFEXOR XR) 150 mg, Oral, Every morning zolpidem (AMBIEN) 10 mg, Oral, Nightly PRN Follow-up: 3 months or sooner if any problem arises. Scribe Attestation: IRosalia, am serving as a scribe to document services personally performed by Neyda Cahcko MD, based on the patient's response to questions by provider and provides statements to me. documented in this encounter Miscellaneous Notes * Assessment & Plan Note - Rosalia Davis MA - 04/04/2024 11:41 AM EST Associated Problem(s): Dyslipidemia - most recent lipid profile 12/15/23 - current medication: Rosuvastatin 40 mg at bedtime - continue working on lifestyle modifications - continue current medication * Assessment & Plan Note - Neyda Chacko MD - 04/01/2024 7:30 AM ESTAssociated Problem(s): Mass of axillary tail of right breast - scheduled for biopsy with Dr. Moon on 04/12/14 - stop aspirin, NSAID and cilostazol 5-7 days prior * Assessment & Plan Note - Neyda Chacko MD - 04/01/2024 7:29 AM ESTAssociated Problem(s): Type 2 diabetes mellitus (CMS/HCC) -A1C 7.7% on 03/30/24, no significant change from 7.9% on 12/21/23 -Previously following with [facility] endocrinology, discharged in May 2023 due to stability -Continue Tresiba 70 units qAM (discrepancy from account advisor's note) -Continue Humalog 10 units before breakfast, 8 with lunch, 25 with dinner, 5-[address] snacks[address] Last [address] Grey's recommendation was 8-12 units with PO intake, 4 times per day. -Continue Ozempic 2 mg weekly; consider decreasing its dose due to poor PO intake and weight loss -Continue Metformin 1g bid -Continue Jardiance 25 mg daily -Continue working on lifestyle modifications. -Last eye exam: 12/[address] 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 Plantar wart. Peripheral neuropathy. She has diabetic footwear. -Last FLP: 12/15/23 TC 113 ; TG 45 ; HDL 53 ; LDL 51. -Last microalbumin test: 12/15/23 UACR 27.8, early mild microalbuminuria * Assessment & Plan Note - Neyda Chacko MD - 04/01/2024 7:28 AM ESTAssociated Problem(s): Weight loss - most likely due to medications and depression, and now possible breast cancer - consider decreasing GLP1RA - continue nutritional supplement * Assessment & Plan Note - Neyda Chacko MD - 04/01/2024 7:27 AM ESTAssociated Problem(s): Essential hypertension -Goal BP < 140/90 per JNC-8 and [...] up in 3 mo or sooner prn * Assessment & Plan Note - Neyda Chacko MD - 04/01/2024 7:24 AM ESTAssociated Problem(s): Peripheral arterial occlusive disease (CMS/HCC) -[facility] -most recent PAWAN doppler on 08/13/21, moderate stenosis in b/l SFA and popliteal arteries -continue working on risk factor management -pt has been on cilostazol since 2017 - Ordered VASC US Lower Extremity Venous Insufficiency Bilateral - Ordered Vascular US lower extremity arterial duplex bilateral with VEENA * Assessment & Plan Note - Neyda Chacko MD - 04/01/2024 7:24 AM ESTAssociated Problem(s): Peripheral venous insufficiency s/p laser ablation of right GSV in 11/2013 and left GSV in 12/2013. -Last venous US on 05/23/20 -Continue current management -Will request update on venous study - Ordered VASC US Lower Extremity Venous Insufficiency Bilateral - Ordered Vascular US lower extremity arterial duplex bilateral with VEENA * Assessment & Plan Note - Neyda Chacko MD - 03/30/2024 6:28 AM ESTAssociated Problem(s): Metabolic dysfunction-associated steatotic liver disease (MASLD) - Last liver test: Nov 2023 - Last US / elastography - FIB4 index 1.51 - GI: [facility] - continue working on lifestyle modifications - continue surveillance study - Ordered US Abdomen Comp w elastography documented in this encounter Plan of Treatment Scheduled Orders Name Type Priority Associated Diagnoses Orde r Schedule US Abdomen Comp w elastography Imaging Routine Metabolic dysfunction-associated steatotic liver disease (MASLD) Expected: 04/01/2024, Expires: 04/01/2025 documented as of this encounter Procedures Procedure Name Priority Date/Time Associated Diagnosis Comments POCT GLYCOSYLATED HEMOGLOBIN (HGB A1C) Routine 03/30/2024 11:51 AM EST Type 2 diabetes mellitus with hyperglycemia, with long-term current use of insulin (CMS/HCC) POCT GLUCOSE Routine 03/30/2024 11:35 AM EST Type 2 diabetes mellitus with hyperglycemia, with long-term current use of insulin (CMS/HCC) documented in this encounter Results * (ABNORMAL) POCT glycosylated hemoglobin (Hgb A1c) (03/30/2024 11:51 AM EST) Hemoglobin A1C 7.7(A) 4.0 - 6.0 % QC Media Lot # [id number] Lot# Expiration Date Blood Capillary blood specimen / Unknown 03/30/2024 11:51 AM EST Neyda Chacko MD POINT OF CARE TEST ENTER/EDIT OR DERABLES Final Result * POCT glucose manually resulted (03/30/2024 11:35 AM EST) Glucose Blood, POC 192 60 - 200 mg/dL QC Media Lot # [id number] Lot# Expiration Date Blood Capillary blood specimen / Unknown 03/30/2024 11:35 AM EST Result [facility] Neyda Chacko MD POINT OF CARE TEST ENTER/EDIT OR DERABLES Final Result documented in this encounter Visit Diagnoses Diagnosis Type 2 diabetes mellitus with hyperglycemia, with long-term current use of insulin (CMS/HCC)- Primary Essential hypertension Unspecified essential hypertension Mass of axillary tail of right breast Transaminitis Nonspecific elevation of levels of transaminase or lactic acid dehydrogenase (LDH) Dyslipidemia Other and unspecified hyperlipidemia Metabolic dysfunction-associated steatotic liver disease (MASLD) Peripheral venous insufficiency Unspecified venous (peripheral) insufficiency Peripheral arterial occlusive disease (CMS/HCC) Unspecified peripheral vascular disease Weight loss Loss of weight Dietary counseling Dietary surveillance and counseling Exercise counseling Overweight documented in this encounter Additional Health Concerns Assessment Noted Time PHQ-9 Depression Total Score: 7 06/15/19 24 10:57 AM EDT documented as of this encounter Care Teams Hand Fretted Instrument Maker Relationship Specialty Start Date End Date Neyda Chacko MD [address] [place] [address] PCP - General Family Medicine 02/22/18 documented as of this encounter
--- OUTSIDE RECORDS SUMMARY | 2024-04-11 08:31 | XMS_ITS | Encounter Summary ---
Author Organization [employer] [facility] Address [address] [facility] 7t [place] [address] Care Team Providers Care Senior Android Developer Name Role Phone Neyda Chacko MD Primary Care Provider [phone] Reason for Visit * Reason Onset Date Comments Med Refill 09/03/2022 Encounter Details Date Type Department Care Team (Late st Contact Info) Description 09/03/2022 Telephone [facility] MEDICINE [address] [place], [place] [phone] Neyda Chacko MD [address] [place], [place] [phone] Med Refill Social History Tobacco Use Types [...] as of this encounter Care Teams Senior Android Developer Relationship Specialty Start Date End Date Neyda Chacko MD [address] [place] [address] PCP - General Family Medicine 02/22/18 documented as of this encounter
--- OUTSIDE RECORDS SUMMARY | 2024-04-11 08:31 | XMS_ITS | Encounter Summary ---
Author Organization [employer] Address [address] [facility] [address]t [place] [address] Care Team Providers Care Manager Inventory Management Name Role Phone Neyda Chacko MD Primary Care Provider [phone] Reason for Visit * Reason Onset Date Comments Med Refill 10/27/2023 Encounter Details Date Type Department Care Team (Late st Contact Info) Description 10/27/2023 Telephone [facility] MEDICINE [address] [place], [place] [phone] Neyda Chacko MD [address] [place], [place] [phone] Med Refill Social History Tobacco Use Types [...] MG/3ML solution pen-injector To be sent to: [facility] - [place], [place] - [address] [facility] documented in this encounter Plan of Treatment Not on file documented as of this encounter Visit Diagnoses Not on filedocumented in this encounter Additional Health Concerns Assessment Noted Time PHQ-9 Depression Total Score: 7 06/15/19 24 10:57 AM EDT documented as of this encounter Care Teams Manager Inventory Management Relationship Specialty Start Date End Date Neyda Chacko MD [address] [place] [address] PCP - General Family Medicine 02/22/18 documented as of this encounter
--- OUTSIDE RECORDS SUMMARY | 2024-04-11 08:31 | XMS_ITS | Encounter Summary ---
Author Organization [employer] Address [address] [facility] [address] [place] [address] Care Team Providers Care Service Station Helper Name Role Phone Neyda Chacko MD Primary Care Provider [phone] Encounter Details Date Type Department Care Team (Late st Contact Info) Description 07/14/2023 Orders Only [facility] MEDICINE [address] [place], [place] [phone] Neyda Chacko MD [address] [place], [place] [phone] Social History Tobacco Use Types Packs/Day Years [...] documented as of this encounter Care Teams Service Station Helper Relationship Specialty Start Date End Date Neyda Chacko MD [address] [place] [address] PCP - General Family Medicine 02/22/18 documented as of this encounter
--- OUTSIDE RECORDS SUMMARY | 2024-04-11 08:31 | XMS_ITS | Encounter Summary ---
Author Organization [employer] Address [address] [facility] [address] [place] [address] Care Team Providers Care Chain Maker Name Role Phone Neyda Chacko MD Primary Care Provider [phone] Encounter Details Date Type Department Care Team (Late st Contact Info) Description 11/02/2023 Orders Only [facility] MEDICINE [address] [place], [place] [phone] Neyda Chacko MD [address] [place], [place] [phone] Type 2 diabetes mellitus with hyperglycemia, with long-term current use of insulin ([facility]) Social History Tobacco Use Types Packs/Day Years [...] current use of insulin ([facility]) documented in this encounter Additional Health Concerns Assessment Noted Time PHQ-9 Depression Total Score: 7 06/15/19 24 10:57 AM EDT documented as of this encounter Care Teams Chain Maker Relationship Specialty Start Date End Date Neyda Chacko MD [address] [place] [phone] PCP - General Family Medicine 02/22/18 documented as of this encounter
--- OUTSIDE RECORDS SUMMARY | 2024-04-11 08:31 | XMS_ITS | Encounter Summary ---
Author Organization [employer] Address [address] [facility] 7t [place] [address] Care Team Providers Care Sanitation Worker Cleaning Equipment Name Role Phone Neyda Chacko MD Primary Care Provider [phone] Reason for Visit * Reason Comments Med Refill Encounter Details Date Type Department Care Team (Late st Contact Info) Description 03/19/2024 Refill [facility] MEDICINE [address] [place], [place] [phone] Neyda Chacko MD [address] [place], [place] [phone] Type 2 diabetes mellitus with hyperglycemia, with long-term current use of insulin ([facility]) Social History Tobacco Use Types Packs/Day [...] hyperglycemia, with long-term current use of insulin ([facility]) documented in this encounter Additional Health Concerns Assessment Noted Time PHQ-9 Depression Total Score: 7 06/15/19 24 10:57 AM EDT documented as of this encounter Care Teams Sanitation Worker Cleaning Equipment Relationship Specialty Start Date End Date Neyda Chacko MD [address] [place] [phone] PCP - General Family Medicine 02/22/18 documented as of this encounter
--- OUTSIDE RECORDS SUMMARY | 2024-04-11 08:31 | XMS_ITS | Encounter Summary ---
Author Organization [employer] Address [address] [facility] [address] [place] [address] Care Team Providers Care Malted Milk Mixer Name Role Phone Neyda Chacko MD Primary Care Provider [phone] Encounter Details Date Type Department Care Team (Latest Contact Info) Description 03/30/2024 Travel Social History Tobacco Use Types Packs/Day Years [...] documented as of this encounter Care Teams Malted Milk Mixer Relationship Specialty Start Date End Date Neyda Chacko MD [address] [place] [phone] PCP - General Family Medicine 02/22/18 documented as of this encounter
--- OUTSIDE RECORDS SUMMARY | 2024-04-11 08:31 | XMS_ITS | Encounter Summary ---
Author Organization [employer] Address [address] [facility] 7t [place] [address] Care Team Providers Care Registered Nurse First Assistant Name Role Phone Neyda hCacko MD Primary Care Provider [phone] Reason for Visit * Reason Onset Date Comments Medication Question 04/03/2024 Encounter Details Date Type Department Care Team ([facility] st Contact Info) Description 04/03/2024 Telephone [facility] MEDICINE [address] [place] [address] Morena Mclaughlin RN Medication Question Social History Tobacco Use Types Packs/Day Years [...] encounter Miscellaneous Notes * Telephone Encounter - Morena Mclaughlin RN - 04/04/2024 1:05 PM EST Pt and daughter presented to tennis desk team member for green team. Explained message below to pt and daughter:stop aspirin and ibuprofen 7 days prior to procedure, stop cilostazol 5 days prior to procedure. Ptand daughter unsure of procedure date, stated maybe April 11 or . Advised her PCP note says procedure with Dr Sainz on 04/12/24 and to confirm with grandson. Pt has medbox, advised daughter to bring pt's medboxes to [facility] pharmacy for assistance. Called [facility], spoke with Jazmin who stated she will put note on file regarding meds. * Telephone Encounter - Morena Mclaughlin RN - 04/04/2024 9:08 AM EST Telephone call to pt, spoke with daughter, not on active HIPAA form, requested callback from pt. Pt's daughter upset on the phone, repeated previous message. Pt to call back [facility]. * Telephone Encounter - Morena Mclaughlin RN - 04/03/2024 4:15 PM EST Telephone call to pt to advise of below message. No answer, unable to leave voicemail as mailbox isfull. Will task to call again. * Telephone Encounter - Morena Mclaughlin RN - 04/03/2024 3:33 PM EST ----- Message from Neyda Chacko MD sent at 04/01/2024 7:35 AM EST ----- Please call patient or patient's caregiver that patient needs to stop aspirin, ibuprofen, and cilostazol. Stop aspirin and ibuprofen 7 days prior. Stop cilostazol 5 days prior. I forgot to mention about cilostazol at last visit. Thank you documented in this encounter Plan of Treatment Not on file documented as of this encounter Visit Diagnoses Not on filedocumented in this encounter Additional Health Concerns Assessment Noted Time PHQ-9 Depression Total Score: 7 06/15/19 24 10:57 AM EDT documented as of this encounter Care Teams Registered Nurse First Assistant Relationship Specialty Start Date End Date Neyda Chacko MD [address] [place] [phone] PCP - General Family Medicine 02/22/18 documented as of this encounter
--- OUTSIDE RECORDS SUMMARY | 2024-04-11 08:31 | XMS_ITS | Encounter Summary ---
Author Organization [employer] Address [address] [facility] 7t [place] [address] Care Team Providers Care Agricultural Produce Sorter Name Role Phone Neyda Chacko MD Primary Care Provider [phone] Encounter Details Date Type Department Care Team (Late st Contact Info) Description 09/09/2023 Orders Only [facility] MEDICINE [address] [place], [place] [phone] Neyda Chacko MD [address] [place], [place] [phone] Essential hypertension (Primary Dx); Type 2 diabetes mellitus with hyperglycemia, with long-term current use of insulin ([facility]); Dyslipidemia; Weight loss Social History Tobacco Use [...] hyperglycemia, with long-term current use of insulin ([facility]) TSH W/REFLEX TO FT4 Routine 12/15/2023 1 1:00 AM EDT Weight loss LIPID PANEL WITH REFLEX TO DIRECT LDL Routine 12/15/2023 11:00 AM EDT Type 2 diabetes mellitus with hyperglycemia, with long-term current use of insulin ([facility]) Dyslipidemia ALBUMIN, RANDOM URINE W/CREATININE Routine 12/15/2023 11:00 AM EDT Type 2 diabetes mellitus with hyperglycemia, with long-term current use of insulin ([facility]) CBC WITH AUTO DIFFERENTIAL Routine 12/15/2023 11:00 AM EDT Weight loss COMPREHENSIVE METABOLIC PANEL Routine 12/15/2023 11:00 AM EDT Essential hypertension documented in this encounter Results * (ABNORMAL) CBC auto differential (12/15/2023 11:00 AM EDT) White Blood Count 2.5(L) 4.8 - 10.8 X10*3/uL [facility] Red Blood Count 4.42 4.20 - 5.50 X10*6/uL [facility] Hemoglobin 12.7 12.0 - 16.0 g/dl [facility] Hematocrit 38.9 37.0 - 47.0 % [facility] Mean Corpuscular Volume 88.0 80.0 - 98.0 fL [facility] Mean Corpuscular Hemoglobin 28.7 27.0 - 33.0 pg [facility] Mean Corpuscular HGB Conc 32.6 31.0 - 35.0 g/dl [facility] Red Cell Distribution Width 12.0 11.0 - 16.0 % [facility] Platelet Count 180 160 - 400 X10*3/uL [facility] Mean Platelet Volume 9.8 9.4 - 12.3 fL [facility] Neutrophils Percent Auto 36.6(L) 45 - 73 % [facility] Imm Gran Pct Auto 0.4 0.0 - 0.4 % [facility] Lymphocytes Percent Auto 49.8(H) 20 - 40 % [facility] Monocytes Percent Auto 8.8 2 - 11 % [facility] Eosinophils Percent Auto 3.6 0 - 4 % [facility] Basophils Percent Auto 0.8 0 - 2 % [facility] NRBC Pct Auto 0.0 0.0 - 0.2 /100WBC [facility] Neutrophils Absolute Auto 0.9(L) 2.0 - 8.3 x10*3/uL [facility] Imm Gran Abs Auto 0.01 0.00 - 0.03 X10*3/uL [facility] Lymphocytes Absolute Auto 1.3 1.2 - 4.9 X10*3/uL [facility] Monocytes Absolute Auto 0.2 0.1 - 1.2 X10*3/uL [facility] Eosinophils Absolute Auto 0.1 0.0 - 0.4 X10*3/uL [facility] Basophils Absolute Auto 0.0 0.0 - 0.2 X10*3/uL [facility] NRBC Abs Auto 0.000 0.0 - 0.012 X10*3/uL [facility] Blood Venous blood specimen / Unknown 12/15/2023 11:00 AM EDT 12/15/2023 1:24 PM EDT Neyda Chacko MD LAB BLOOD ORDERABLES Edited Resu lt - Final Performing Organization Address City/[facility] Co de Phone Number [facility] [address] [place] [phone] * TSH with Reflex to Free T4 (12/15/2023 11:00 AM EDT) Pathologist [facility] TSH reflex Free T4 2.91 0.32 - 4.0 uIU/mL [facility] Blood 12/15/2023 11:0 0 AM EDT 12/15/2023 1:24 PM EDT Neyda Chacko MD LAB BLOOD ORDERABLES Final Resul t Performing Organization Address [facility] de Phone Number [facility] [address] [place] [phone] * (ABNORMAL) Comprehensive Metabolic Panel (12/15/2023 11:00 AM EDT) Sodium 142 135 - 145 mmol/L [facility] Potassium 4.0 3.3 - 5.1 mmol/L [facility] Chloride 107 96 - 108 mmol/L [facility] Carbon Dioxide 30(H) 22 - 29 mmol/L [facility] Anion Gap 9(L) 12 - 20 [facility] Urea Nitrogen (BUN) 18(H) 9 - 16 mg/dL [facility] Creatinine, Serum 0.68 0.5 - 1.4 mg/dL [facility] Estimated Glomerular Filt Rate >60 [facility] Comment:NOTE: For -Am erican individuals, multiply the result by 1.210.Chronic Kidney Disease: Estimated GFR < 60 mL/min/1.62x9Empqhn Kidney Disease: Estimated GFR < 15 mL/min/1.73m2 Glucose 161(H) 60 - 115 mg/dL [facility] Calcium 9.5 8.4 - 10.2 mg/dL [facility] Bilirubin, Total 0.2 0.0 - 1.0 mg/dL [facility] Aspartate Amino Transferase 34(H) 5 - 31 U/L [facility] Alanine Aminotransferase 49(H) 0 - 31 U/L [facility] Total Protein 6.9 6.5 - 8.0 g/dL [facility] Albumin Level 3.9 3.5 - 5.0 g/dL [facility] Alkaline Phosphatase 59 39 - 117 U/L [facility] Blood Venous blood specimen / Unknown 12/15/2023 11:00 AM EDT 12/15/2023 1:24 PM EDT Neyda Chacko MD LAB BLOOD ORDERABLES Final Resul t Performing Organization Address City/[facility] de Phone Number [facility] [address] [place] [address] [phone] * Albumin, Random Urine W/Creatinine (12/15/2023 11:00 AM EDT) Creatinine, Urine 75.29 mg/dL [facility] Microalbumin Urine 21.0 mg/L [facility] Microalbum Creatinine Ratio Ur 27.8 <30 ug/mg cr [facility] Comment:Albumin/Creatinine R atio Reference Ranges: Normal: < 30 ug/mg creatinine Microalbuminuria: 30 - 300 ug/mg creatinineClinical Albuminuria: > 300 ug/mg creatinine Urine 12/15/2023 11:0 0 AM EDT 12/15/2023 1:12 PM EDT us Neyda Chacko MD LAB URINE ORDERABLES Final Resul t Performing Organization Address City/[facility] Co de Phone Number [facility] [address] [place] [phone] * Lipid Panel with Reflex to Direct LDL (12/15/2023 11:00 AM EDT) Triglycerides 45 <150 mg/dL [facility] Comment:Desirable Triglyceri de: less than 150 mg/dLBorderline High Triglyceride 150-199 mg/dLHigh Triglyceride: 200-499 mg/dLVery High Triglyceride: greater than or equal to 5OO mg/dL Cholesterol 113 <200 mg/dL [facility] Comment:Desirable Cholestero l: less than 200 mg/dLBorderline High Cholesterol: 200-239 mg/dLHigh Cholesterol: greater than 239 mg/dL LDL Cholesterol Calculated 51 <100 mg/dL [facility] Comment:Desirable LDL: less than 100 mg/dLNear Optimal/Above Optimal LDL: 110- 129 mg/dLBorderline High LDL: 130-159 mg/dLHigh LDL: 160-189 mg/dLVery High LDL: greater than or equal to 190 mg/dL HDL Cholesterol 53 >40 mg/dL [facility] Comment:Desirable HDL: great er than 40 mg/dL Note: This HDL assay may give artificially low results in patients with liver disease. Blood 12/15/2023 11:0 0 AM EDT 12/15/2023 1:24 PM EDT us Neyda Chacko MD LAB BLOOD ORDERABLES Final Resul t [facility] [address] [place] [phone] * Vitamin B12 (Cobalamin) and Folate Panel, Serum (12/15/2023 11:00 AM EDT) Vitamin B12 402 200 - 900 pg/mL [facility] Comment:NORMAL 200-900 PG/ML INDETERMINATE 160-199 PG/ML DEFICIENT < 160 PG/ML Folate 12.9 > or = 4.0 ng/mL [facility] Comment:Reference Values:> o r = 4.0 ng/mL< 4.0 ng/mL suggests folate deficiency Methotrexate, aminopterin and folinic acid(leucovorin) are chemotherapeutic agents whose molecularstructures are similar to folate; therefore, the Architectfolate assay cannot be used for patients using these drugs. Blood 12/15/2023 11:0 0 AM EDT 12/15/2023 1:24 PM EDT Neyda Chacko MD LAB BLOOD ORDERABLES Final Resul t [facility] [address] [place] [phone] documented in this encounter Visit Diagnoses Diagnosis Essential hypertension- Primary Unspecified essential hypertension Type 2 diabetes mellitus with hyperglycemia, with long-term current use of insulin ([facility]) Dyslipidemia Other and unspecified hyperlipidemia Weight loss Loss of weight documented in this encounter Additional Health Concerns Assessment Noted Time PHQ-9 Depression Total Score: 7 06/15/19 24 10:57 AM EDT documented as of this encounter Care Teams Agricultural Produce Sorter Relationship Specialty Start Date End Date Neyda Chacko MD [address] [place] [phone] PCP - General Family Medicine 02/22/18 documented as of this encounter
--- OUTSIDE RECORDS SUMMARY | 2024-04-11 08:31 | XMS_ITS | Clinical Summary ---
Author Organization [employer] Address [address] [facility] [place] [address] Care Team Providers Care Director Of Adult Epilepsy Name Role Phone Neyda Chacko MD Primary Care Provider [phone] Allergies Active Allergy Reactions Criticality Noted Date Comments Pioglitazone 03/14/2010 Other reaction(s): unspecified Medications Blood Glucose Monitoring Suppl (Insightera Waldo Lite) w/Device kit USE DIRECTED Active busPIRone [...] needed at bedtime. Active Continuous Blood Gluc Diesel Locomotive Firer (FreeStyle Joelle 2 [place]) device Use as directed 1 each 1 Active Continuous Blood Gluc Sensor (FreeStyle Joelle 2 Sensor) misc Use as directed 2 each 11 Active pantoprazole (ProtoNix) 40 MG EC tablet TAKE 1 TABLET BY MOUTH TWICE A DAY 023 Active Senna-Time 8.6 MG tablet TAKE 2 TABLETS BY MOUTH EVERY DAY AT BEDTIME NEEDED FOR CONSTIPATION Active Carafate 1 GM/10ML suspension TAKE 20ML BY MOUTH EVERY DAY 023 Active Blood Pressure Monitor kitIndications: Essential hypertension Use to check blood pressure daily as directed 1 kit Active ibuprofen 600 MG tablet Take 1 [...] hyperglycemia, with long-term current use of insulin ([facility]) USE UP TO FIVE TIMES DAILY TO TEST BLOOD SUGAR 100 each Active FREESTYLE LITE test stripIndication s:Type 2 diabetes mellitus with hyperglycemia, with long-term current use of insulin ([facility]) USE TO TEST 5 TIMES DAILY 100 [...] 2 horas despues del desayuno y la iliana 60 tablet 5 Active Pentips 32G X 4 MM misc [...] INJECTION SITES. 3 mL 1 025 Active Insulin Syringe-Needle U-100 (BD Veo Insulin Syringe U/F) 31G X 15/64 0.5 ML miscIndications :Type 2 diabetes mellitus with hyperglycemia, with long-term current use of insulin (CMS/HCC) USE THREE TO FOUR TIMES DAILY WITH humalog 120 each 025 Active Insulin Syringe-Needle U-100 (BD Veo Insulin Syringe U/F) 31G X 15/64 0.5 ML miscIndications :Type 2 diabetes mellitus with hyperglycemia, with long-term current use of insulin (CMS/HCC) USE DIRECTED 3 TO 4 TIMES DAILY WITH HUMALOG 120 each 024 2024 Discontinued Active Problems Problem Noted Date Diagnosed Date Mass of axillary tail of right breast 03/30/2024 Assessment & Plan (04/01/2024 7:36 AM EST): - scheduled for biopsy with Dr. Moon on 04/12/14 - stop aspirin, NSAID and cilostazol 5-7 days prior Transaminitis 03/30/2024 Metabolic dysfunction-associ ated steatotic liver disease (MASLD) 03/30/2024 Assessment & Plan (04/04/2024 11:43 AM EST): - Last liver test: Nov 2023 - Last US / elastography - FIB4 index 1.51 - [place] [facility] - continue working on lifestyle modifications - continue surveillance study - Ordered US Abdomen Comp w elastography Leukopenia 12/31/2023 Assessment & Plan (12/31/2023 6:11 [...] acetaminophen Weight loss 06/15/2023 Assessment & Plan (04/01/2024 7:28 AM EST): - most likely due to medications and depression, and now possible breast cancer - consider decreasing GLP1RA - continue nutritional supplement Assessment & Plan (12/21/2023 10:26 PM EDT): [...] -on GLP-1 agonist for DM -followed by [facility], last seen in June 2023 -continue metoclopramide 10 mg tid, with caution due to its side effect Assessment & Plan (05/24/2022 3:57 PM EDT): -on GLP-1 agonist for DM -seen by GI on 03/19/22, restarted on metoclopramide -continue metoclopramide 10 mg tid Peripheral arterial occlusive disease 08/13/2016 Assessment & Plan (04/04/2024 11:42 AM EST): -Followed by [facility] provider -most recent PAWAN doppler on 08/13/21, moderate stenosis in b/l SFA and popliteal arteries -continue working on risk factor management -pt has been on cilostazol since 2017 - Ordered VASC US Lower Extremity Venous Insufficiency Bilateral - Ordered Vascular US lower extremity arterial duplex bilateral with VEENA Assessment & Plan (06/15/2023 11:00 AM EDT): -Followed by [facility] provider -most recent PAWAN doppler on 08/13/21, moderate stenosis in b/l SFA and popliteal arteries -continue working on risk factor management -pt has been on cilostazol since 2016 Assessment & Plan (10/19/2022 6:00 AM EDT): -Followed by [facility] provider -most recent PAWAN doppler on 08/13/21, moderate stenosis in b/l SFA and popliteal arteries -continue working on risk factor management -pt has been on cilostazol since 2017 Assessment & Plan (05/24/2022 3:54 PM EDT): -Followed by [facility] provider -most recent PAWAN doppler on 08/13/21, moderate stenosis in b/l SFA and popliteal arteries -continue working on risk factor management -pt has been on cilostazol since 2017 Assessment & Plan (03/15/2022 5:49 PM EST): -Followed by [facility] provider -most recent PAWAN doppler on 08/13/21, moderate stenosis in b/l SFA and popliteal arteries -continue working on risk factor management -pt has been on cilostazol since 2017 Hemorrhoids 07/01/2015 Chronic recurrent major depressive disorder 02/23 Assessment & Plan (06/15/2023 11:01 AM EDT): [facility] provider: Olayinka Joiner Current medications: venlafaxine; buspirone; hydroxyzine Continue following recommendation by [facility] providers Patient lost her in Jan 2020 due to COVID and has been grieving. Patient is currently with her family and seems to have good support. Continue current S. Assessment & Plan (10/19/2022 6:03 AM EDT): [facility] provider: Olayinka Joiner Current medications: venlafaxine; buspirone; hydroxyzine Continue following recommendation by [facility] providers Patient lost her in Jan 2020 due to COVID and has been grieving. Patient is currently with her family and seems to have good support. Continue current S. Assessment & Plan (05/24/2022 4:01 PM EDT): [facility] provider: Olayinka Cortez Counseling Current medications: venlafaxine; buspirone; hydroxyzine Continue following recommendation by [facility] providers Patient lost her in Jan 2020 due to COVID and has been grieving. Patient is currently with her family and seems to have good support. Continue current S. Assessment & Plan (03/15/2022 5:50 PM EST): [facility] provider: Olayinka Joiner Current medications: venlafaxine; buspirone; hydroxyzine Continue following recommendation by [facility] providers Patient lost her in Jan [...] lab Essential hypertension 12/19/2014 Assessment & Plan (04/01/2024 7:27 AM EST): -Goal BP < 140/90 per JNC-8 and <130/80 per ACC/AHA -BP had been low lately, especially after weight loss with GLP-1RA. Adjusted BB dose in May 2023. -Followed by [facility], last seen on 09/17/22 -Continue working on lifestyle modifications -Continue monitoring BP at home -Continue Zestoretic 20-12.5 mg TWO dabs daily -Continue metoprolol tartrate 50 mg -Treatment Hx: discontinued furosemide for HTN -last echocardiogram: August 2008, EF 60-65%, mildly dilated LA -Referred patient for CDTM to de-prescribing and diabetes mellitus management. -Follow up in 3 mo or sooner prn Assessment & Plan (12/31/2023 6:07 AM EST): -Goal BP < 140/90 per JNC-8 and <130/80 per ACC/AHA -BP had been low lately, especially after weight loss with GLP-1RA. Adjusted BB dose in May 2023. -Followed by [facility], last seen on 09/17/22 -Continue working on [...] BB dose in May 2023. -Followed by [facility], last seen on 09/17/22 -Continue working on [...] <130/80 per ACC/AHA -BP slightly low. Her general internal medicine physician has suggested to taper down her diuretics since she had GSV ablation. -Followed by [facility], last seen on 09/17/22 -Continue current lifestyle [...] per ACC/AHA -BP within acceptable range. Her general internal medicine physician has suggested to taper down her diuretics since she had GSV ablation. -Followed by [facility], last seen on 09/17/22 -Continue current lifestyle [...] per ACC/AHA -BP within acceptable range. Her general internal medicine physician has suggested to taper down her diuretics since she had GSV ablation. -Followed by [facility], last seen on 12/10/21 -Continue current lifestyle [...] per ACC/AHA -BP within acceptable range. Her general internal medicine physician has suggested to taper down her diuretics since she had GSV ablation. -Followed by [facility], last seen on 12/10/21 -Continue current lifestyle modification and medications. 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 -Last venous US on 05/23/20 -Continue current management -Will request update on venous study - Ordered VASC US Lower Extremity Venous Insufficiency Bilateral - Ordered Vascular US lower extremity arterial duplex bilateral with VEENA Assessment & Plan (06/15/2023 11:00 AM EDT): [...] 2 diabetes mellitus 10/07/2011 Assessment & Plan (04/01/2024 7:29 AM EST): -A1C 7.7% on 03/30/24, no significant change from 7.9% on 12/21/23 -Previously following with [facility] [place], discharged in May 2023 due to stability -Continue Tresiba 70 units qAM (discrepancy from forging die sinker's note) -Continue Humalog 10 units before breakfast, [...] 27.8, early mild microalbuminuria Assessment & Plan (12/21/2023 10:26 PM EDT): -A1C 7.9% on 12/21/23 -Previously following with [facility] [place]ocr[facility], discharged in May 2023 due to stability -Continue Tresiba 70 units qAM (discrepancy from forging die sinker's note) -Continue Humalog 10 units before breakfast, [...] 7.2% on 06/15/23, improving -Previously following with [facility]ocr[facility], discharged in May 2023 due to stability -Continue Tresiba 70 units qAM (discrepancy from forging die sinker's note) -Continue Humalog 10 units before breakfast, [...] PM EDT): -A1C 7.2% on 06/15/23, improving -Veterinary Bacteriologist: [facility], last seen on Sep 2022 -Continue Tresiba 70 units qAM (discrepancy from forging die sinker's note) -Continue Humalog 10 units before breakfast, [...] yet with hypoglycemia. 8.6% in Feb 2022 -Veterinary Bacteriologist: [facility], last seen on Sep 2022 -Continue Tresiba 70 units qAM (discrepancy from forging die sinker's note) -Continue Humalog 10 units before breakfast, [...] PM EDT): -A1C 8.6% today 03/11/22, improving -Veterinary Bacteriologist: [facility], last seen on 02/13/22 -Continue Tresiba 70 units qAM (discrepancy from forging die sinker's note) -Continue Humalog 8 units before breakfast, [...] PM EST): -A1C 8.6% today 03/11/22, improving -Veterinary Bacteriologist: [facility], last seen on 02/13/22 -Continue Tresiba 70 units qAM (discrepancy from forging die sinker's note) -Continue Humalog 8 units before breakfast, [...] to date Dyslipidemia 10/07/2011 Assessment & Plan (04/04/2024 11:41 AM EST): - most recent lipid profile 12/15/23 - current medication: Rosuvastatin 40 mg at bedtime - continue working on lifestyle modifications - continue current medication Assessment & Plan (12/31/2023 6:12 AM EST): [...] Encounters Date Type Department Care Team Description 04/03/2024 Telephone [facility] [address] [place] [id number] Morena Mclaughlin RN Medication Question 03/30/2024 11:00 AM EST Office Visit [facility] [address] [place] [address] Neyda Chacko MD Type 2 diabetes mellitus with hyperglycemia, with long-term current use of insulin ([facility]) (Primary Dx); Essential hypertension; Mass of axillary tail of right breast; Transaminitis; Dyslipidemia; Metabolic dysfunction-associate d steatotic liver disease (MASLD); Peripheral venous insufficiency; Peripheral arterial occlusive disease ([facility]); Weight loss; Dietary counseling; Exercise counseling; Overweight 03/30/2024 Travel 03/28/2024 Telephone [facility] [address] [place] [address] Mariel Aragon MA chart prep 03/19/2024 Refill [facility] [address], [place] [phone] Neyda Chacko MD Type 2 diabetes mellitus with hyperglycemia, with long-term current use of insulin ([facility]) 02/25/2024 Refill [facility] [address] [place], [place] [phone] Neyda Chacko MD Iron deficiency anemia, unspecified iron deficiency anemia type; Type 2 diabetes mellitus with hyperglycemia, with long-term current use of insulin ([facility]) 02/24/2024 Refill [facility] [address] [place], [place] [phone] Rosalia Ag DO Type 2 diabetes mellitus with hyperglycemia, with long-term current use of insulin ([facility]) 02/23/2024 Refill [facility] [address], [place] [phone] Neyda Chacko MD Peripheral arterial occlusive disease ([facility]) 02/10/2024 Refill [facility] [address] [place], [place] [phone] Sabina Clarke ANP Chronic low back pain, unspecified back pain laterality, unspecified whether sciatica present 01/27/2024 Refill [facility] [address] [place], [place] [phone] Neyda Chacko MD Vitamin D deficiency; Type 2 diabetes mellitus with hyperglycemia, with long-term current use of insulin ([facility]) 01/11/2024 Telephone [facility] [address], [place] [phone] Neyda Chacko MD from Last 3 Months [...] the past 12 months, has t he [employer] gas, oil or water company threatened to [...] 9.6 oz) 03/30/2024 11:34 AM EST Height 154.1 cm (5' 0.68 ) 12/21/2023 11:40 AM E DT Body Mass Index 28.76 12/21/2023 11:40 AM EDT Plan of Treatment Health Maintenance Due Date Last Done Comments CT Colonography 1960 Dental X-Ray: Full Mouth 1960 FIT DNA/Cologuard 1960 FIT 1960 FOBT 1960 Sigmoidoscopy 1960 Hepatitis A Vaccines (1 of 2 - Risk 2-dose series) 1977 RSV Patients and Patients Aged 60 years or older (1 - Risk 60-74 years 1-dose series) 2018 Dental Oral Exam 09/29/2022 03/31/2022 Dental Prophylaxis 09/29/2022 03/31/2022 Dental X-Ray: Bitewings 04/01/2023 03/31/2022 Diabetes: Foot Exam 10/08/2023 10/07/2022, 10/07/2022, 10/07/2022, Additional history exists Eye Exam 12/26/2023 12/25/2022 Depression Screening 06/14/2024 06/15/2023, 06/15/19 24 SDOH Screening 06/14/2024 06/15/2023 Diabetes: Hemoglobin A1C 06/27/2024 025, 12/21/2023, 06/15/2023, Additional history exists Diabetes: Urine Protein Screening 12/14/2024 12/15/2023, 10/07/2022, 01/06/2022, Additional history exists Lipid Panel 12/14/2024 12/15/2023, 09/22, 01/06/2022, Additional history exists Alcohol/Substance Use Screening 12/20/2024 12/21/2023 Tobacco Screening 04/01/2025 04/01/2024 Colonoscopy 08/15/2025 08/15/2020 Colorectal Cancer Screening 08/15/2025 Mammogram 03/15/2026 03/15/2024, 02/23, 01/28/2022, Additional history exists DTaP/Tdap/Td Vaccines (3 - Td or Tdap) 08/08/2031 08/07/2021, 04/07/2011, 08/20/2005, Additional history exists Hepatitis B Vaccines Completed 10/02/2013, 07/03/2013, 07/19/2012 Cervical Cancer Screening Discontinued HPV/Cotest Discontinued 12/27/2019, 1105/2019, 09/30/2017 Zoster Vaccines Completed 10/04/2020, 08/01/2020 Pneumococcal Vaccine: [...] patient's age to complete this topic Hepatitis C Screening Discontinued IPV Vaccines Aged Out No longer eligi ble based on patient's age to complete this topic Meningococcal Vaccine Aged Out No philippe juan ramon eligible based on patient's age to complete this topic Pap Smear Discontinued RSV under 20 months Aged Out No longe r eligible based on patient's age to complete this topic Rotavirus Vaccines Aged Out No longer eligible based on patient's age to complete this topic Procedures Procedure Name Priority Date/Time Associated Diagnosis Comments POCT GLYCOSYLATED HEMOGLOBIN (HGB A1C) Routine 03/30/2024 11:51 AM EST Type 2 diabetes mellitus with hyperglycemia, with long-term current use of insulin ([facility]) POCT GLUCOSE Routine 03/30/2024 11:35 AM EST Type 2 diabetes mellitus with hyperglycemia, with long-term current use of insulin ([facility]) BI US BREAST LIMITED RIGHT Routine 03/15/2024 11:30 AM EST BI MAMMOGRAM DIAGNOSTIC TOMOSYNTHESIS BILATERAL Routine 03/15/2024 11:15 AM EST Breast pain, right ALBUMIN, RANDOM URINE W/CREATININE Routine 12/15/2023 11:00 AM EDT Type 2 diabetes mellitus with hyperglycemia, with long-term current use of insulin ([facility]) LIPID PANEL WITH REFLEX TO DIRECT LDL Routine 12/15/2023 11:00 AM EDT Type 2 diabetes mellitus with hyperglycemia, with long-term current use of insulin ([facility]) Dyslipidemia DIABETES EYE EXAM Routine 12/25/2022 PERIODIC ORAL EVALUATION - ESTABLISHED PATIENT Routine 03/31/2022 1:15 PM EST Full PROPHYLAXIS - ADULT Routine 03/31/2022 11:00 AM EST Dental plaque on multiple teeth BITEWINGS - 4 RADIOGRAPHIC IMAGES Routine 03/31/2022 11:00 AM EST Dental plaque on multiple teeth HM COLONOSCOPY Routine 08/15/2020 ZZZ HISTORICAL HPV E6/E7 RFLX LINDSAY 16 18/45 Routine 12/27/2019 1:40 PM EST from Last 3 Months or Most Recently Relevant to Health Maintenance Results * (ABNORMAL) POCT glycosylated hemoglobin (Hgb A1c) (03/30/2024 11:51 AM EST) Hemoglobin A1C 7.7(A) 4.0 - 6.0 % QC Media Lot # [id number] Lot# Expiration Date ,201,050 Blood Capillary blood specimen / Unknown 03/30/2024 11:51 AM EST Neyda Chacko MD POINT OF CARE TEST ENTER/EDIT OR DERABLES Final Result * POCT glucose manually resulted (03/30/2024 11:35 AM EST) Glucose Blood, POC 192 60 - 200 mg/dL QC Media Lot # [id number] Lot# Expiration Date ,831,025 Blood Capillary blood specimen / Unknown 03/30/2024 11:35 AM EST Neyda Chacko MD POINT OF CARE TEST ENTER/EDIT OR DERABLES Final Result * BI US Breast Limited Right (03/15/2024 11:30 AM EST) Anatomical Region Laterality Modality Breast Right Ultrasound 03/15/2024 11:3 0 AM EST Narrative 03/15/2024 12:29 PM EST ? [facility] [place] ? [address] ?[place] [address] ? Ultrasound Report ? Signed ? Patient: Guzman,Jaimee I ?MR#: [id number] ?? 2030 ? : 1960 ?Acct:[id number] ? Age/Sex: 63 / F ?ADM Date: 01/22/25 ? Loc: HO.MAMMO ? Attending Dr: Neyda Chacko MD ? Ordering Physician: Neyda Chacko MD ?? Date of Service: 03/15/24 ?? Procedure(s): US breast RT limited mamm only ?? Accession Number(s): [id number] ? cc: Neyda Chacko MD ? EXAMINATION: ?? MM DIAGNOSTIC DIGITAL BREAST TOMOSYNTHESIS, BILATERAL ?? Limited right ultrasound. ? CLINICAL INFORMATION: ? Palpable lump right axillary area far lateral. ? COMPARISON: ?? Mammography: Comparison is made with relevant prior exams. ? TECHNIQUE: ?? Digital breast mammography with tomosynthesis is performed in both the ?? craniocaudal and mediolateral oblique views along with computer-aided ?? detection (CAD). ?? Limited right ultrasound. ? FINDINGS: ?? The breasts are heterogeneously dense, which may obscure small masses ?? (ACR BI-RADS breast composition Category c). ? There are no significant masses, abnormal calcifications, or other ?? abnormalities. ? The patient's palpable area is too far lateral to be imaged on ?? mammography. ? Targeted color Doppler ultrasound scanning in the area of the patient's ?? palpable lump in the right axilla demonstrates a hypoechoic ?? subcutaneous solid mass at o'clock 20 cm from the nipple in the axilla ?? measuring approximately 15 x 13 x 8 mm. ? Results are provided to the patient at time of visit by the ?? technologist. ? US/US breast RT limited mamm only ?? IMPRESSION: ?? Hypoechoic subdermal solid mass in the right axilla. Recommend ?? histology with ultrasound-guided core needle biopsy at this time. The ?? findings and recommendations were discussed with the patient the ?? procedure will be scheduled. ? ASSESSMENT: ? BI-RADS BI-RADS 4 - Suspicious finding ? RECOMMENDATION: ?? Biopsy recommended ? This patient's information was entered into a reminder system with a ?? target due date for their next mammogram. ? Electronically signed by: ??Nereyda Carvajal DO ??03/15/2024 12:26 PM EST ?? RP ? Dictated By: ?Nereyda Carvajal DO ? Signed By: ?<Electronically signed by Nereyda Carvajal, DO in OV> ? 03/15/24 1226 ? DD/ 1130 ? TD/TT: 03/15/24 1158 ? Aligner: ? Procedure Note Donotuseinterpreter, Image - 03/15/2024 [facility] [address] [place] [address] [place] [address] Ultrasound Report Signed Patient: Jaimee Guzman IMR#: [id number] 2032 : 9Acct:[id number] Age/Sex: 63 / FADM Date: 03/15/24 Loc: HO.MAMMO Attending Dr: Neyda Chacko MD Ordering Physician: Neyda Chacko MD Date of Service: 03/15/24 Procedure(s): US breast RT limited mamm only Accession Number(s): [id number] cc: Neyda Chacko MD EXAMINATION: MM DIAGNOSTIC DIGITAL BREAST TOMOSYNTHESIS, BILATERAL Limited right ultrasound. CLINICAL INFORMATION: Palpable lump right axillary area far lateral. COMPARISON: Mammography: Comparison is made with relevant prior exams. TECHNIQUE: Digital breast mammography with tomosynthesis is performed in both the craniocaudal and mediolateral oblique views along with computer-aided detection (CAD). Limited right ultrasound. FINDINGS: The breasts are heterogeneously dense, which may obscure small masses (ACR BI-RADS breast composition Category c). There are no significant masses, abnormal calcifications, or other abnormalities. The patient's palpable area is too far lateral to be imaged on mammography. Targeted color Doppler ultrasound scanning in the area of the patient's palpable lump in the right axilla demonstrates a hypoechoic subcutaneous solid mass at o'clock 20 cm from the nipple in the axilla measuring approximately 15 x 13 x 8 mm. Results are provided to the patient at time of visit by the technologist. US/US breast RT limited mamm only IMPRESSION: Hypoechoic subdermal solid mass in the right axilla. Recommend histology with ultrasound-guided core needle biopsy at this time. The findings and recommendations were discussed with the patient the procedure will be scheduled. ASSESSMENT: BI-RADS BI-RADS 4 - Suspicious finding RECOMMENDATION: Biopsy recommended This patient's information was entered into a reminder system with a target due date for their next mammogram. Electronically signed by: Nereyda Carvajal DO 03/15/2024 12:26 PM EST RP Dictated By: Nereyda Carvajal DO Signed By: <Electronically signed by Nereyda Carvajal DO in OV> 03/15/24 1226 DD/ 1130 TD/TT: 03/15/24 1158 Aligner: us Nyeda Chacko MD IMG US PROCEDURES Final Result * BI Mammogram Diagnostic Tomosynthesis Bilateral (03/15/2024 11:15 AM EST) Anatomical Region Laterality Modality Breast Bilateral Mammography 03/15/2024 11:1 5 AM EST Narrative 03/15/2024 12:29 PM EST ? [facility] [place] ? [address] ?[place], [place] [address] ? Mammography Report ? Signed ? Patient: Guzman,Jaimee I ?MR#: [id number] ?? 2030 ? : 1960 ?Acct:[id number] ? Age/Sex: 63 / F ?ADM Date: 03/15/24 ? Loc: HO.MAMMO ? Attending Dr: Neyda Chacko MD ? Ordering Physician: Neyda Chacko MD ?Results: 4Suspicio ?? us Finding ? Date of Service: 03/15/24 ?Follow Up: Biopsy Recommend ?? ed ? Procedure(s): MM tomosynthesis diagnostic BI ?? Accession Number(s): [id number] ? cc: Neyda Chacko MD ? EXAMINATION: ?? MM DIAGNOSTIC DIGITAL BREAST TOMOSYNTHESIS, BILATERAL ?? Limited right ultrasound. ? CLINICAL INFORMATION: ? Palpable lump right axillary area far lateral. ? COMPARISON: ?? Mammography: Comparison is made with relevant prior exams. ? TECHNIQUE: ?? Digital breast mammography with tomosynthesis is performed in both the ?? craniocaudal and mediolateral oblique views along with computer-aided ?? detection (CAD). ?? Limited right ultrasound. ? FINDINGS: ?? The breasts are heterogeneously dense, which may obscure small masses ?? (ACR BI-RADS breast composition Category c). ? There are no significant masses, abnormal calcifications, or other ?? abnormalities. ? The patient's palpable area is too far lateral to be imaged on ?? mammography. ? Targeted color Doppler ultrasound scanning in the area of the patient's ?? palpable lump in the right axilla demonstrates a hypoechoic ?? subcutaneous solid mass at o'clock 20 cm from the nipple in the axilla ?? measuring approximately 15 x 13 x 8 mm. ? Results are provided to the patient at time of visit by the ?? technologist. ? MM/MM tomosynthesis diagnostic BI ?? IMPRESSION: ?? Hypoechoic subdermal solid mass in the right axilla. Recommend ?? histology with ultrasound-guided core needle biopsy at this time. The ?? findings and recommendations were discussed with the patient the ?? procedure will be scheduled. ? ASSESSMENT: ? BI-RADS BI-RADS 4 - Suspicious finding ? RECOMMENDATION: ?? Biopsy recommended ? This patient's information was entered into a reminder system with a ?? target due date for their next mammogram. ? Electronically signed by: ??Nereyda Carvajal DO ??03/15/2024 12:26 PM EST ?? RP ? Dictated By: ?Nereyda Carvajal DO ? Signed By: ?<Electronically signed by Nereyda Carvajal, DO in OV> ? 03/15/24 1226 ? DD/ 1115 ? TD/TT: 03/15/24 1140 ? Aligner: ? Procedure Note Donotuseinterpreter, Image - 03/15/2024 Reyna [facility] [address] [place], [place] [address] Mammography Report Signed Patient: Jaimee Guzman IMR#: [id number] : 9Acct:[id number] Age/Sex: 63 / FADM Date: 03/15/24 Loc: HO.MAMMIrene Attending Dr: Neyda Chacko MD Ordering Physician: Neyda Chacko MDResults: 4Suspicio us Finding Date of Service: 03/15/24Follow Up: Biopsy Recommend ed Procedure(s): MM tomosynthesis diagnostic BI Accession Number(s): [id number] cc: Neyda Chacko MD EXAMINATION: MM DIAGNOSTIC DIGITAL BREAST TOMOSYNTHESIS, BILATERAL Limited right ultrasound. CLINICAL INFORMATION: Palpable lump right axillary area far lateral. COMPARISON: Mammography: Comparison is made with relevant prior exams. TECHNIQUE: Digital breast mammography with tomosynthesis is performed in both the craniocaudal and mediolateral oblique views along with computer-aided detection (CAD). Limited right ultrasound. FINDINGS: The breasts are heterogeneously dense, which may obscure small masses (ACR BI-RADS breast composition Category c). There are no significant masses, abnormal calcifications, or other abnormalities. The patient's palpable area is too far lateral to be imaged on mammography. Targeted color Doppler ultrasound scanning in the area of the patient's palpable lump in the right axilla demonstrates a hypoechoic subcutaneous solid mass at o'clock 20 cm from the nipple in the axilla measuring approximately 15 x 13 x 8 mm. Results are provided to the patient at time of visit by the technologist. MM/MM tomosynthesis diagnostic BI IMPRESSION: Hypoechoic subdermal solid mass in the right axilla. Recommend histology with ultrasound-guided core needle biopsy at this time. The findings and recommendations were discussed with the patient the procedure will be scheduled. ASSESSMENT: BI-RADS BI-RADS 4 - Suspicious finding RECOMMENDATION: Biopsy recommended This patient's information was entered into a reminder system with a target due date for their next mammogram. Electronically signed by: Nereyda Carvajal DO 03/15/2024 12:26 PM EST Dictated By: Nereyda Carvajal DO Signed By: <Electronically signed by Nereyda Carvajal DO in OV> 03/15/24 1226 DD/ 1115 TD/TT: 03/15/24 1140 Aligner: Neyda Chacko MD IMG BI PROCEDURES Final Result * Lipid Panel with Reflex to Direct LDL (12/15/2023 11:00 AM EDT) Triglycerides 45 <150 mg/dL [facility] Comment:Desirable Triglyceri de: less than 150 mg/dLBorderline High Triglyceride 150-199 mg/dLHigh Triglyceride: 200-499 mg/dLVery High Triglyceride: greater than or equal to 5OO mg/dL Cholesterol 113 <200 mg/dL [facility] Comment:Desirable Cholestero l: less than 200 mg/dLBorderline High Cholesterol: 200-239 mg/dLHigh Cholesterol: greater than 239 mg/dL LDL Cholesterol Calculated 51 <100 mg/dL [facility] Comment:Desirable LDL: less than 100 mg/dLNear Optimal/Above Optimal LDL: 110- 129 mg/dLBorderline High LDL: 130-159 mg/dLHigh LDL: 160-189 mg/dLVery High LDL: greater than or equal to 190 mg/dL HDL Cholesterol 53 >40 mg/dL [facility] Comment:Desirable HDL: great er than 40 mg/dL Note: This HDL assay may give artificially low results in patients with liver disease. Blood 12/15/2023 11:0 0 AM EDT 12/15/2023 1:24 PM EDT Neyda Chacko MD LAB BLOOD ORDERABLES Final Resul t [facility] [address] [place] [phone] * Albumin, Random Urine W/Creatinine (12/15/2023 11:00 AM EDT) Creatinine, Urine 75.29 mg/dL [facility] Microalbumin Urine 21.0 mg/L [facility] Microalbum Creatinine Ratio Ur 27.8 <30 ug/mg cr [facility] Comment:Albumin/Creatinine R atio Reference Ranges: Normal: < 30 ug/mg creatinine Microalbuminuria: 30 - 300 ug/mg creatinineClinical Albuminuria: > 300 ug/mg creatinine Urine 12/15/2023 11:0 0 AM EDT 12/15/2023 1:12 PM EDT Neyda Chacko MD LAB URINE ORDERABLES Final Resul t [facility] [address] [place] [phone] * Diabetes Eye Exam (12/25/2022) Eye Exam Normal Normal Historical Provider HEALTH MAINTENANCE Final Result * Colonoscopy (08/15/2020) Colonoscopy Normal Normal Historical Provider HEALTH MAINTENANCE Final Result * HPV E6/E7 RFLX LINDSAY 16 18/45 (12/27/2019 1:40 PM EST) HPV mRNA E6/E7 rflx Not Detected Not Detected [facility] Comment: This test was performed using the APTIMA HPV Assay ([employer] This assay detects E6/E7 viral messenger RNA (mRNA) from 14 high-risk HPV types (16,18,31,33,35,39,45,51,52,56,58,59,66,68). The analytical performance characteristics of this assay have been determined by [employer]. The modifications have not been cleared or approved by the FDA. This assay has been validated pursuant to the CLIA regulations and is used for clinical purposes. THIS TEST WAS PERFORMED AT: [facility] [address] [place] [address],[address] [place], [place] ??[phone] RENE MULLINS MD 12/27/2019 1:40 PM EST us Ry Curtis MD HISTORICAL/NON ORDERABLE LABS Fi nal Result [facility] [address] from Last 3 Months or Most Recently Relevant to Health Maintenance Insurance [address] [place] [address] [facility] [address] [place] [address] [facility] [address] [place] [address] [address] [place] [address] Care Teams Director Of Adult Epilepsy Relationship Specialty Start Date End Date Neyda Chacko MD [address] [place] [phone] PCP - General Family Medicine 02/22/18
--- OUTSIDE RECORDS SUMMARY | 2024-04-11 08:31 | XMS_ITS | Encounter Summary ---
Author Organization [employer] Address [address] [facility] 7t [place] [address] Care Team Providers Care Hvac Installer Name Role Phone Neyda Chacko MD Primary Care Provider Reason for Visit * Reason Onset Date Comments chart prep 03/28/2024 Encounter Details Date Type Department Care Team ([facility] st Contact Info) Description 03/28/2024 Telephone [facility] MEDICINE [address] [place], [place] [phone] Mariel Aragon MA chart prep Social History Tobacco Use Types Packs/Day Years [...] encounter Miscellaneous Notes * Telephone Encounter - Mariel Aragon MA - 03/28/2024 9:09 AM EST .Chart Prep Labs: not applicable Images: not applicable Vaccines due: RSV in Pharmacy Due Referrals: Podiatry Pending appointment on 04/04/24 Screenings: Eye Exam and Foot Exam Overdue care gaps: A1C, Glucose, and rahul-7 documented in this encounter Plan of Treatment Not on file documented as of this encounter Visit Diagnoses Not on filedocumented in this encounter Additional Health Concerns Assessment Noted Time PHQ-9 Depression Total Score: 7 06/15/19 24 10:57 AM EDT documented as of this encounter Care Teams Hvac Installer Relationship Specialty Start Date End Date Neyda Chacko MD [address] [place] [address] PCP - General Family Medicine 02/22/18 documented as of this encounter
== END 2024-04-11 08:40 | disposition home or self-care (01) ==
PROVIDERS: PCP Family Medicine; Visit Provider Surgery
DX: R92.8 Other abnormal and inconclusive findings on diagnostic imaging of breast (principal)
CPT/HCPCS: 99204

== ENCOUNTER → 2024-04-11 08:19 | Outpatient (BNVA) | payer OTHER, SELFPAY | PROVIDERS: PCP Family Medicine; Visit Provider Surgery | DX: R92.8 Other abnormal and inconclusive findings on diagnostic imaging of breast (principal) | CPT/HCPCS: 99202 ==

== ENCOUNTER 2024-04-12 09:58 | Outpatient (REF) | payer OTHER, SELFPAY ==
--- NOTE | ~2024-04-12 | US_ITS ---
PROCEDURE: ULTRASOUND-GUIDED RIGHT AXILLA BIOPSY CLINICAL INFORMATION: Subdermal axillary mass which was palpable. COMPARISON: Comparison is made with available prior examinations. TECHNIQUE: The details of the procedure, as well as the risks, benefits, and alternatives to the procedure were explained to the patient in detail and all of her questions were answered, after which, written informed consent was obtained. PROCEDURE: Prior to the procedure, sonography revealed oval subdermal hypoechoic axillary mass.. A time-out was performed, the lesion intended for biopsy was targeted and the skin of the right axilla was then prepped and draped in the usual sterile fashion. Using sonographic guidance, sterile technique, and 1% lidocaine without epinephrine for local anesthesia, a total of 5 cores were obtained through the targeted area with a 18-gauge biopsy device. At the completion of tissue sampling, a single [coil metallic clip was deposited at the biopsy site. An appropriate sample was obtained. No postprocedural mammogram was obtained and this area was not visualized on mammography. The patient tolerated the procedure well and, after assuring adequate hemostasis, was discharged in good condition after reviewing postbiopsy axillary care instructions. Final pathology results are pending. US/US breast ndl core biopsy RT IMPRESSION: 1. Uncomplicated sonographically-guided core biopsy of the right axilla 2. Final pathology results are pending. A separate report with final recommendations will be issued once these results are made available. Electronically signed by: Nereyda Carvajal DO 04/12/2024 12:10 PM [facility]
--- OUTSIDE RECORDS SUMMARY | 2024-04-12 10:28 | XMS_ITS | Encounter Summary ---
Author Organization [employer] Address [address] [facility] 7t [place] [address] Care Team Providers Care Commercial Lines Account Assistant Name Role Phone Neyda Chacko MD Primary Care Provider [phone] Reason for Visit * Reason Onset Date Comments Appointment Request 02/19/2023 Encounter Details Date Type Department Care Team ([facility] st Contact Info) Description 02/19/2023 Telephone [facility] MEDICINE [address] [place], [place] [phone] Neyda Chacko MD [address] [place], [place] [phone] Appointment Request Social History Tobacco Use Types [...] daughter requesting to reschedule appt for 02/19 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
--- OUTSIDE RECORDS SUMMARY | 2024-04-12 10:28 | XMS_ITS | Encounter Summary ---
Author Organization [employer] Address [address] [facility] 7t [place] [address] Care Team Providers Care Skid Man Name Role Phone Neyda Chacko MD Primary Care Provider [phone] Reason for Visit * Reason Onset Date Comments Durable Medical Equipment 01/26/2023 Encounter Details Date Type Department Care Team (Late st Contact Info) Description 01/26/2023 Telephone [facility] MEDICINE [address] [place], [place] [phone] Neyda Chacko MD [address] [place], [place] [phone] Durable Medical Equipment Social History Tobacco Use [...] readings would like the patient to use [employer] 2 System documented in this encounter Plan of Treatment Not on file documented as of this encounter Visit Diagnoses Not on filedocumented in this encounter Additional Health Concerns Assessment Noted Time PHQ-9 Depression Total Score: 5 03/12/19 23 10:44 AM EST documented as of this encounter Care Teams Skid Man Relationship Specialty Start Date End Date Neyda Chacko MD [address] [place] [address] PCP - General Family Medicine 02/22/18 documented as of this encounter
--- OUTSIDE RECORDS SUMMARY | 2024-04-12 10:28 | XMS_ITS | Encounter Summary ---
Author Organization [employer] Address [address] [facility] 7t [place] [address] Care Team Providers Care Vp Of Digital Marketing Name Role Phone Neyda Chacko MD Primary Care Provider [phone] Encounter Details Date Type Department Care Team [...] on filedocumented in this encounter Care Teams Vp Of Digital Marketing Relationship Specialty Start Date End Date Neyda Chacko MD [address] [place] [address] PCP - General Family Medicine 02/22/18 documented as of this encounter
--- OUTSIDE RECORDS SUMMARY | 2024-04-12 10:28 | XMS_ITS | Encounter Summary ---
Author Organization [employer] Address [address] [facility] 7t [place] [address] Care Team Providers Care Corporate Responsibility Officer Name Role Phone Neyda Chacko MD Primary Care Provider [phone] Encounter Details Date Type Department Care Team (Late st Contact Info) Description 11/02/2023 Orders Only [facility] MEDICINE [address] [place], [place] [phone] Neyda Chacko MD [address] [place], [place] [phone] Type 2 diabetes mellitus with hyperglycemia, with long-term current use of insulin ([facility]) Social History [...] with long-term current use of insulin ([facility]) documented in this encounter Additional Health Concerns Assessment Noted Time PHQ-9 Depression Total Score: 7 06/15/19 24 10:57 AM EDT documented as of this encounter Care Teams Corporate Responsibility Officer Relationship Specialty Start Date End Date Neyda Chacko MD [address] [place] [phone] PCP - General Family Medicine 02/22/18 documented as of this encounter
--- OUTSIDE RECORDS SUMMARY | 2024-04-12 10:28 | XMS_ITS | Encounter Summary ---
Author Organization [employer] Address [address] [facility] 7t [place] [address] Care Team Providers Care Pouch Maker Name Role Phone Neyda Chacko MD Primary Care Provider [phone] Reason for Visit * Reason Comments Med Refill Encounter Details Date Type Department Care Team (Late st Contact Info) Description 03/19/2024 Refill [facility] MEDICINE [address] [place], [place] [phone] Neyda Chacko MD 230 [place], [place] [phone] Type 2 diabetes mellitus with hyperglycemia, with long-term current use of insulin ([facility]) Social History Tobacco Use Types [...] hyperglycemia, with long-term current use of insulin ([facility]) documented in this encounter Additional Health Concerns Assessment Noted Time PHQ-9 Depression Total Score: 7 06/15/19 24 10:57 AM EDT documented as of this encounter Care Teams Pouch Maker Relationship Specialty Start Date End Date Neyda Chacko MD [address] [place] [phone] PCP - General Family Medicine 02/22/18 documented as of this encounter
--- OUTSIDE RECORDS SUMMARY | 2024-04-12 10:28 | XMS_ITS | Encounter Summary ---
Author Organization [employer] Address [address] [facility] 7t [place] [address] Care Team Providers Care Multiple Drill Operator Name Role Phone Neyda Chacko MD Primary Care Provider [phone] Encounter Details Date Type Department Care Team (Late st Contact Info) Description 03/12/2022 Abstract [facility] MEDICINE 230 [place], [place] [phone] Neyda Chacko MD [address] [place], [place] [phone] Social History Tobacco Use Types Packs/Day Years [...] documented as of this encounter Care Teams Multiple Drill Operator Relationship Specialty Start Date End Date Neyda Chacko MD [address] [place] [address] PCP - General Family Medicine 02/22/18 documented as of this encounter
--- OUTSIDE RECORDS SUMMARY | 2024-04-12 10:28 | XMS_ITS | Encounter Summary ---
Author Organization [employer] Address [address] [facility] [address] 7t [place] [address] Care Team Providers Care Bobbin Trucker Name Role Phone Neyda Chacko MD Primary Care Provider [phone] Encounter Details Date Type Department Care Team [...] documented as of this encounter Care Teams Bobbin Trucker Relationship Specialty Start Date End Date Neyda Chacko MD [address] [place] [address] PCP - General Family Medicine 02/22/18 documented as of this encounter
--- OUTSIDE RECORDS SUMMARY | 2024-04-12 10:28 | XMS_ITS | Encounter Summary ---
Author Organization [employer] Address [address] [facility] 7t [place] [address] Care Team Providers Care Philosophy Instructor Name Role Phone Neyda Chacko MD Primary Care Provider [phone] Encounter Details Date Type Department Care Team (Late st Contact Info) Description 03/06/2022 Orders Only [facility] MEDICINE [address] [place], [place] [phone] Misa Tillman LPN Social History Tobacco Use [...] on filedocumented in this encounter Care Teams Philosophy Instructor Relationship Specialty Start Date End Date Neyda Chacko MD [address] [place] [address] PCP - General Family Medicine 02/22/18 documented as of this encounter
--- OUTSIDE RECORDS SUMMARY | 2024-04-12 10:28 | XMS_ITS | Encounter Summary ---
Author Organization [employer] Address [address] [facility] 7t [place] [address] Care Team Providers Care Manager Business Development Hospice Name Role Phone Neyda Chacko MD Primary Care Provider [phone] Encounter Details Date Type Department Care Team ([facility] st Contact Info) Description 03/10/2022 Telephone [facility] MEDICINE 230 [place], [place] [phone] Neyda Chacko MD [address] [place], [place] [phone] Social History Tobacco Use Types Packs/Day Years [...] on filedocumented in this encounter Care Teams Manager Business Development Hospice Relationship Specialty Start Date End Date Neyda Chacko MD [address] [place] [address] PCP - General Family Medicine 02/22/18 documented as of this encounter
--- OUTSIDE RECORDS SUMMARY | 2024-04-12 10:28 | XMS_ITS | Clinical Summary ---
Author Organization [employer] Address [address] [facility] 7[address] [place] [address] Care Team Providers Care Deputy Harbormaster Name Role Phone Neyda Chacko MD Primary Care Provider [phone] Allergies Active Allergy Reactions Criticality Noted Date Comments Pioglitazone 03/14/2010 Other reaction(s): unspecified Medications Blood Glucose Monitoring Suppl ([employer] [place] Lite) w/Device kit USE DIRECTED Active busPIRone [...] needed at bedtime. Active Continuous Blood Gluc Ware Cleaner (FreeStyle Joelle 2 [place]) device Use as directed 1 each 1 [...] hyperglycemia, with long-term current use of insulin ([facility]) USE UP TO FIVE TIMES DAILY TO TEST BLOOD SUGAR 100 each Active FREESTYLE LITE test stripIndication s:Type 2 diabetes mellitus with hyperglycemia, with long-term current use of insulin ([facility]) USE TO TEST 5 TIMES DAILY [...] elastography - FIB4 index 1.51 - GI: [facility] - continue working on lifestyle modifications - [...] -on GLP-1 agonist for DM -followed by [facility] GI, last seen in June 2023 -continue metoclopramide 10 mg tid, with caution due to its side effect Assessment & Plan (05/24/2022 3:57 PM EDT): -on GLP-1 agonist for DM -seen by GI on 03/19/22, restarted on metoclopramide -continue metoclopramide 10 mg tid Peripheral arterial occlusive disease 08/13/2016 Assessment & Plan (04/04/2024 11:42 AM EST): -Followed by [facility] provider -most recent PAWAN doppler on 08/13/21, moderate stenosis in b/l SFA and popliteal arteries -continue working on risk factor management -pt has been on cilostazol since 2017 - Ordered VASC US Lower Extremity Venous Insufficiency Bilateral - Ordered Vascular US lower extremity arterial duplex bilateral with VEENA Assessment & Plan (06/15/2023 11:00 AM EDT): -Followed by [facility] provider -most recent PAWAN doppler on 08/13/21, moderate stenosis in b/l SFA and popliteal arteries -continue working on risk factor management -pt has been on cilostazol since 2016 Assessment & Plan (10/19/2022 6:00 AM EDT): -Followed by [facility] provider -most recent PAWAN doppler on 08/13/21, moderate stenosis in b/l SFA and popliteal arteries -continue working on risk factor management -pt has been on cilostazol since 2017 Assessment & Plan (05/24/2022 3:54 PM EDT): -Followed by [facility] provider -most recent PAWAN doppler on 08/13/21, moderate stenosis in b/l SFA and popliteal arteries -continue working on risk factor management -pt has been on cilostazol since 2017 Assessment & Plan (03/15/2022 5:49 PM EST): -Followed by [facility] provider -most recent PAWAN doppler on 08/13/21, moderate stenosis in b/l SFA and popliteal arteries -continue working on risk factor management -pt has been on cilostazol since 2017 Hemorrhoids 07/01/2015 Chronic recurrent major depressive disorder 02/23 Assessment & Plan (06/15/2023 11:01 AM EDT): [facility] provider: Olayinka Joiner Current medications: venlafaxine; buspirone; hydroxyzine Continue following recommendation by [facility] providers Patient lost her in Jan 2020 due to COVID and has been grieving. Patient is currently with her family and seems to have good support. Continue current S. Assessment & Plan (10/19/2022 6:03 AM EDT): [facility] provider: Olayinka Joiner Current medications: venlafaxine; buspirone; hydroxyzine Continue following recommendation by [facility] providers Patient lost her in Jan 2020 due to COVID and has been grieving. Patient is currently with her family and seems to have good support. Continue current S. Assessment & Plan (05/24/2022 4:01 PM EDT): [facility] provider: Olayinka Cortez Counseling Current medications: venlafaxine; buspirone; hydroxyzine Continue following recommendation by [facility] providers Patient lost her in Jan 2020 due to COVID and has been grieving. Patient is currently with her family and seems to have good support. Continue current S. Assessment & Plan (03/15/2022 5:50 PM EST): [facility] provider: Olayinka Joiner Current medications: venlafaxine; buspirone; hydroxyzine Continue following recommendation by [facility] providers Patient lost her in Jan 2020 [...] dose in May 2023. -[facility], last seen on 09/17/22 -Continue working on [...] dose in May 2023. -[facility], last seen on 09/17/22 -Continue working on [...] dose in May 2023. -Followed by [facility], last seen on 09/17/22 -Continue working on [...] <130/80 per ACC/AHA -BP slightly low. Her hand buffer has suggested to taper down her diuretics since she had GSV ablation. -Followed by [facility], last seen on 09/17/22 -Continue current lifestyle [...] per ACC/AHA -BP within acceptable range. Her hand buffer has suggested to taper down her diuretics since she had GSV ablation. -Followed by [facility], last seen on 09/17/22 -Continue current lifestyle [...] per ACC/AHA -BP within acceptable range. Her hand buffer has suggested to taper down her diuretics since she had GSV ablation. -[facility] by [facility], last seen on 12/10/21 -Continue current lifestyle [...] per ACC/AHA -BP within acceptable range. Her hand buffer has suggested to taper down her diuretics since she had GSV ablation. -[facility] by [facility], last seen on 12/10/21 -Continue current lifestyle [...] from 7.9% on 12/21/23 -Previously following with [facility] endocrinology, discharged in May 2023 due to stability -Continue Tresiba 70 units qAM (discrepancy from rental management trainee's note) -Continue Humalog 10 units before breakfast, [...] -A1C 7.9% on 12/21/23 -Previously following with [facility] endocrinology, discharged in May 2023 due to stability -Continue Tresiba 70 units qAM (discrepancy from rental management trainee's note) -Continue Humalog 10 units before breakfast, [...] 7.2% on 06/15/23, improving -Previously following with [facility] endocrinology, discharged in May 2023 due to stability -Continue Tresiba 70 units qAM (discrepancy from rental management trainee's note) -Continue Humalog 10 units before breakfast, [...] PM EDT): -A1C 7.2% on 06/15/23, improving -Authorization Specialist: [facility], last seen on Sep 2022 -Continue Tresiba 70 units qAM (discrepancy from rental management trainee's note) -Continue Humalog 10 units before breakfast, [...] yet with hypoglycemia. 8.6% in Feb 2022 -Authorization Specialist: [facility], last seen on Sep 2022 -Continue Tresiba 70 units qAM (discrepancy from rental management trainee's note) -Continue Humalog 10 units before breakfast, [...] PM EDT): -A1C 8.6% today 03/11/22, improving -Authorization Specialist: [facility], last seen on 02/13/22 -Continue Tresiba 70 units qAM (discrepancy from rental management trainee's note) -Continue Humalog 8 units before breakfast, [...] PM EST): -A1C 8.6% today 03/11/22, improving -Authorization Specialist: [facility], last seen on 02/13/22 -Continue Tresiba 70 units qAM (discrepancy from rental management trainee's note) -Continue Humalog 8 units before breakfast, [...] Type Department Care Team Description 04/03/2024 Telephone [facility] [address] [place] [id number] Morena Mclaughlin RN Medication Question 03/30/2024 11:00 AM EST Office Visit [facility] [address] [place] [address] Neyda Chacko MD Type 2 diabetes mellitus with hyperglycemia, with long-term current use of insulin ([facility]) (Primary Dx); Essential hypertension; Mass of axillary tail of right breast; Transaminitis; Dyslipidemia; Metabolic dysfunction-associate d steatotic liver disease (MASLD); Peripheral venous insufficiency; Peripheral arterial occlusive disease ([facility]); Weight loss; Dietary counseling; Exercise counseling; Overweight 03/30/2024 Travel 03/28/2024 Telephone [facility] [address] [place] [address] Mariel Aragon MA chart prep 03/19/2024 Refill [facility] [address], [place] [phone] Neyda Chacko MD Type 2 diabetes mellitus with hyperglycemia, with long-term current use of insulin ([facility]) 02/25/2024 Refill [facility] [address] [place], [place] [phone] Neyda Chacko MD Iron deficiency anemia, unspecified iron deficiency anemia type; Type 2 diabetes mellitus with hyperglycemia, with long-term current use of insulin ([facility]) 02/24/2024 Refill [facility] [address] [place], [place] [phone] Rosalia Ag DO Type 2 diabetes mellitus with hyperglycemia, with long-term current use of insulin ([facility]) 02/23/2024 Refill [facility] [address], [place] [phone] Neyda Chacko MD Peripheral arterial occlusive disease ([facility]) 02/10/2024 Refill [facility] [address], [place] [phone] Sabina Clarke ANP Chronic low back pain, unspecified back pain laterality, unspecified whether sciatica present 01/27/2024 Refill [facility] [address], [place] [phone] Neyda Chacko MD Vitamin D deficiency; Type 2 diabetes mellitus with hyperglycemia, with long-term current use of insulin ([facility]) 01/11/2024 Telephone [facility] [address], [place] [phone] Neyda Chacko MD from Last 3 Months [...] the past 12 months, has t he [place], gas, oil or water company threatened to [...] hyperglycemia, with long-term current use of insulin ([facility]) POCT GLUCOSE Routine 03/30/2024 11:35 AM EST Type 2 diabetes mellitus with hyperglycemia, with long-term current use of insulin ([facility]) BI US BREAST LIMITED RIGHT Routine 03/15/2024 11:30 AM EST BI MAMMOGRAM DIAGNOSTIC TOMOSYNTHESIS BILATERAL Routine 03/15/2024 11:15 AM EST Breast pain, right ALBUMIN, RANDOM URINE W/CREATININE Routine 12/15/2023 11:00 AM EDT Type 2 diabetes mellitus with hyperglycemia, with long-term current use of insulin ([facility]) LIPID PANEL WITH REFLEX TO DIRECT LDL Routine 12/15/2023 11:00 AM EDT Type 2 diabetes mellitus with hyperglycemia, with long-term current use of insulin ([facility]) Dyslipidemia DIABETES EYE EXAM Routine 12/25/2022 PERIODIC [...] Media Lot # [id number] Lot# Expiration Date ,653,819 Blood Capillary blood specimen / Unknown 03/30/2024 11:51 AM EST Neyda Chacko MD POINT OF CARE TEST ENTER/EDIT OR DERABLES Final Result * POCT glucose manually resulted (03/30/2024 11:35 AM EST) Glucose Blood, POC 192 60 - 200 mg/dL QC Media Lot # [id number] Lot# Expiration Date ,930,025 Blood Capillary blood specimen / Unknown 03/30/2024 11:35 AM EST Neyda Chacko MD POINT OF CARE TEST ENTER/EDIT OR DERABLES Final Result * BI US Breast Limited Right (03/15/2024 11:30 AM EST) Anatomical Region Laterality Modality Breast Right Ultrasound 03/15/2024 11:3 0 AM EST Narrative 03/15/2024 12:29 PM EST ? [facility] [place] ? [address] ?[place] [address] ? Ultrasound Report ? Signed ? Patient: Guzman,Jaimee I ?MR#: [id number] ?? 2030 ? : 1960 ?Acct:[id number] ? Age/Sex: 63 / F ?ADM Date: 01/22/25 ? Loc: HO.MAMMO ? Attending Dr: Neyda Chacko MD ? Ordering Physician: Neyda Chacko MD ?? Date of Service: 03/15/24 ?? Procedure(s): US breast RT limited mamm only ?? Accession Number(s): [id number] ? cc: Neyda Chacko MD ? EXAMINATION: [...] DD/ 1130 ? TD/TT: 03/15/24 1158 ? Product Sales Representative: ? Procedure Note Donotuseinterpreter, Image - 03/15/2024 [facility] [address] [place] [address] [place] [address] Ultrasound Report Signed Patient: Jaimee Guzman IMR#: [id number] 2030 : 9Acct:[id number] Age/Sex: 63 / FADM Date: 03/15/24 Loc: HO.MAMMO Attending Dr: Neyda Chacko MD Ordering Physician: Neyda Chacko MD Date of Service: 03/15/24 Procedure(s): US breast RT limited mamm only Accession Number(s): [id number] cc: Neyda Chacko MD EXAMINATION: MM DIAGNOSTIC [...] 03/15/24 1226 DD/ 1130 TD/TT: 03/15/24 1158 Product Sales Representative: us Neyda Chacko MD IMG US PROCEDURES Final Result * BI Mammogram Diagnostic Tomosynthesis Bilateral (03/15/2024 11:15 AM EST) Anatomical Region Laterality Modality Breast Bilateral Mammography 03/15/2024 11:1 5 AM EST Narrative 03/15/2024 12:29 PM EST ? [facility] [place] ? [address] ?[place], [place] [address] ? Mammography Report ? Signed ? Patient: Guzman,Jaimee I ?MR#: [id number] ?? 2030 ? : 1960 ?Acct:[id number] ? Age/Sex: 63 / F ?ADM Date: 03/15/24 ? Loc: HO.MAMMO ? Attending Dr: Neyda Chacko MD ? Ordering Physician: Neyda Chacko MD ?Results: 4Suspicio ?? us Finding ? Date of Service: 03/15/24 ?Follow Up: Biopsy Recommend ?? ed ? Procedure(s): MM tomosynthesis diagnostic BI ?? Accession Number(s): [id number] ? cc: Neyda Chacko MD ? EXAMINATION: [...] DD/ 1115 ? TD/TT: 03/15/24 1140 ? Product Sales Representative: ? Procedure Note Donotuseinterpreter, Image - 03/15/2024 [facility] [address] [place], [place] [address] Mammography Report Signed Patient: Jaimee Guzman IMR#: [id number] 2032 : 9Acct:[id number] Age/Sex: 63 / FADM Date: 03/15/24 Loc: HO.MAMMIrene Attending Dr: Neyda Chacko MD Ordering Physician: Neyda Chacko MDResults: 4Suspicio us Finding Date of Service: 03/15/24Follow Up: Biopsy Recommend ed Procedure(s): MM tomosynthesis diagnostic BI Accession Number(s): [id number] cc: Neyda Chacko MD EXAMINATION: MM DIAGNOSTIC [...] 03/15/24 1226 DD/ 1115 TD/TT: 03/15/24 1140 Product Sales Representative: Neyda Chacko MD IMG BI PROCEDURES Final Result * Lipid Panel with Reflex to Direct LDL (12/15/2023 11:00 AM EDT) Triglycerides 45 <150 mg/dL [facility] Comment:Desirable Triglyceri de: less than 150 mg/dLBorderline High Triglyceride 150-199 mg/dLHigh Triglyceride: 200-499 mg/dLVery High Triglyceride: greater than or equal to 5OO mg/dL Cholesterol 113 <200 mg/dL [facility] Comment:Desirable Cholestero l: less than 200 mg/dLBorderline High Cholesterol: 200-239 mg/dLHigh Cholesterol: greater than 239 mg/dL LDL Cholesterol Calculated 51 <100 mg/dL [facility] Comment:Desirable LDL: less than 100 mg/dLNear Optimal/Above Optimal LDL: 110- 129 mg/dLBorderline High LDL: 130-159 mg/dLHigh LDL: 160-189 mg/dLVery High LDL: greater than or equal to 190 mg/dL HDL Cholesterol 53 >40 mg/dL [facility] Comment:Desirable HDL: great er than 40 mg/dL Note: This HDL assay may give artificially low results in patients with liver disease. Blood 12/15/2023 11:0 0 AM EDT 12/15/2023 1:24 PM EDT Neyda Chacko MD LAB BLOOD ORDERABLES Final Resul t [facility] [address] [place] [phone] * Albumin, Random Urine W/Creatinine (12/15/2023 11:00 AM EDT) Creatinine, Urine 75.29 mg/dL [facility] Microalbumin Urine 21.0 mg/L H [facility] Microalbum Creatinine Ratio Ur 27.8 <30 ug/mg cr [facility] Comment:Albumin/Creatinine R atio Reference Ranges: Normal: < 30 ug/mg creatinine Microalbuminuria: 30 - 300 ug/mg creatinineClinical Albuminuria: > 300 ug/mg creatinine Urine 12/15/2023 11:0 0 AM EDT 12/15/2023 1:12 PM EDT Neyda Chacko MD LAB URINE ORDERABLES Final Resul t [facility] [address] [place] [phone] * Diabetes Eye Exam (12/25/2022) Eye Exam Normal Normal Historical Provider HEALTH MAINTENANCE Final Result * Colonoscopy (08/15/2020) Colonoscopy Normal Normal Historical Provider HEALTH MAINTENANCE Final Result * HPV E6/E7 RFLX LINDSAY 16 18/45 (12/27/2019 1:40 PM EST) HPV mRNA E6/E7 rflx Not Detected Not Detected [facility] Comment: This test was performed using the APTIMA HPV Assay ([employer] This assay detects E6/E7 viral messenger RNA (mRNA) from 14 high-risk HPV types (16,18,31,33,35,39,45,51,52,56,58,59,66,68). The analytical performance characteristics of this assay have been determined by [employer]. The modifications have not been cleared or approved by the FDA. This assay has been validated pursuant to the CLIA regulations and is used for clinical purposes. THIS TEST WAS PERFORMED AT: [facility] [address] [place] [address],[address] [place], [place] ??[phone] RENE MULLINS MD 12/27/2019 1:40 PM EST us Ry Curtis MD HISTORICAL/NON ORDERABLE LABS Fi nal Result [facility] [address] from Last 3 Months or Most Recently Relevant to Health Maintenance Insurance [address] [place] [address] [facility] [address] [place] [address] [facility] [address] [place] [address] [address] [place] [address] Care Teams Deputy Harbormaster Relationship Specialty Start Date End Date Neyda Chacko MD [address] [place] [phone] PCP - General Family Medicine 02/22/18
--- OUTSIDE RECORDS SUMMARY | 2024-04-12 10:28 | XMS_ITS | Encounter Summary ---
Author Organization [employer] Address [address] [facility] 7t [place] [address] Care Team Providers Care Finished Stock Inspector Name Role Phone Neyda Chacko MD Primary Care Provider [phone] Reason for Referral * Imaging (Routine) - Authorized Specialty Diagnoses / Procedures Referred By Contac t Referred To Contact Cardiology Diagnoses Peripheral venous insufficiency Peripheral arterial occlusive disease (CMS/HCC) Procedures Vascular US lower extremity arterial duplex bilateral with VEENA Neyda Chacko MD [address] [place] [address] Phone: tel: fax: [address] Phone: tel: fax: Referral ID Status Reason Start Date Expiration Date Visits Requested Visits Authorized [id number] Authorized Perform Procedure 04/01/2024 04/01/2025 1 1 * Imaging (Routine) - Authorized Specialty Diagnoses / Procedures Referred By Contac t Referred To Contact Cardiology Diagnoses Peripheral venous insufficiency Peripheral arterial occlusive disease (CMS/HCC) Procedures VASC US Lower Extremity Venous Insufficiency Bilateral Neyda Chacko MD [address] [place] [address] Phone: tel: fax: [address] Phone: tel: fax: Referral ID Status Reason Start Date Expiration Date Visits Requested Visits Authorized [id number] Authorized Perform Procedure 04/01/2024 04/01/2025 1 1 * Imaging (Routine) - Authorized Specialty Diagnoses / Procedures Referred By Contac t Referred To Contact Radiology Diagnoses Metabolic dysfunction-associated steatotic liver disease (MASLD) Procedures US Abdomen Comp w elastography Neyda Chacko MD [address] [place] [address] Phone: tel: fax: [address] Phone: tel: fax: Referral ID Status Reason Start Date Expiration Date V isits Requested Visits Authorized [id number] Authorized 04/01/2024 04/01/2025 1 1 Encounter Details Date Type Department Care Team (Late st Contact Info) Description 03/30/2024 11:00 AM EST Office Visit [facility] [address] [place] [phone] Neyda Chacko MD [address] [place] [address] Type 2 diabetes mellitus with hyperglycemia, with [...] pain, wrist pain, and onychomycosis. Referred to wet press tender. Ordered diagnostic mammography. Interval history: 01/25/24 EMG/NCT showed gawr-yb-gyxberiq bilateral median neuropathy and mild left ulnar [...] 08/2024 she was an appointment with her Lap Machine Tender. She does not tolerate the compression socks, [...] MCV 85.9 12/17/2023 The ASCVD Risk score (Dunnellon DK, et al., 2019) failed to calculate [...] from 7.9% on 12/21/23 -Previously following with [facility] endocrinology, discharged in May 2023 due to stability -Continue Tresiba 70 units qAM (discrepancy from residential builder's note) -Continue Humalog 10 units before breakfast, [...] elastography - FIB4 index 1.51 - GI: [facility] - continue working on lifestyle modifications - [...] DOES NOT RESPOND. Blood Glucose Monitoring Suppl ([employer] [place] Lite) w/Device kit USE DIRECTED Blood Pressure [...] 2 horas despues del desayuno y la hammer fitter Continuous Blood Gluc Community Support Associate (FreeStyle Joelle 2 [place]) device Use as directed Continuous Blood Gluc [...] to document services personally performed by Neyda Chacko MD, based on the patient's response to [...] from 7.9% on 12/21/23 -Previously following with [facility] endocrinology, discharged in May 2023 due to stability -Continue Tresiba 70 units qAM (discrepancy from residential builder's note) -Continue Humalog 10 units before breakfast, [...] Peripheral arterial occlusive disease (CMS/HCC) -[facility] -most recent PAWAN doppler on [...] elastography - FIB4 index 1.51 - GI: [facility] - continue working on lifestyle modifications - [...] / Unknown 03/30/2024 11:35 AM EST Result [facility] Neyda Chacko MD POINT OF CARE TEST [...] documented as of this encounter Care Teams Finished Stock Inspector Relationship Specialty Start Date End Date Neyda Chacko MD [address] [place] [address] PCP - General Family Medicine 02/22/18 documented as of this encounter
--- OUTSIDE RECORDS SUMMARY | 2024-04-12 10:28 | XMS_ITS | Encounter Summary ---
Author Organization [employer] Address 75 [facility] 7t [place] [address] Care Team Providers Care Traffic Superintendent Name Role Phone Neyda Chacko MD Primary Care Provider [phone] Reason for Visit * Reason Onset Date Comments Medication Question 04/03/2024 Encounter Details Date Type Department Care Team ([facility] st Contact Info) Description 04/03/2024 Telephone [facility] MEDICINE [address] [place] [address] Morena Mclaughlin RN Medication Question Social History [...] PM EST Pt and daughter presented to medical front desk coordinator for green team. Explained message below to pt and daughter:stop aspirin and ibuprofen 7 days prior to procedure, stop cilostazol 5 days prior to procedure. Ptand daughter unsure of procedure date, stated maybe April 11 or . Advised her PCP note says procedure with Dr Sainz on 04/12/24 and to confirm with grandson. Pt has medbox, advised daughter to bring pt's medboxes to [facility] pharmacy for assistance. Called [facility], spoke with Jazmin who stated she will put note on file regarding meds. * Telephone Encounter - Morena Mclaughlin RN - 04/04/2024 9:08 AM EST Telephone call to pt, spoke with daughter, not on active HIPAA form, requested callback from pt. Pt's daughter upset on the phone, repeated previous message. Pt to call back [facility]. * Telephone Encounter - Morena [...] documented as of this encounter Care Teams Traffic Superintendent Relationship Specialty Start Date End Date Neyda Chacko MD [address] [place] [address] PCP - General Family Medicine 02/22/18 documented as of this encounter
--- OUTSIDE RECORDS SUMMARY | 2024-04-12 10:28 | XMS_ITS | Encounter Summary ---
Author Organization [employer] Address [address] [place] [address] 7t [place] [address] Care Team Providers Care Director University Name Role Phone Neyda Chacko MD Primary Care Provider [phone] Reason for Visit * Reason Comments Med Refill Encounter Details Date Type Department Care Team (Late st Contact Info) Description 01/28/2022 Refill [facility] MEDICINE 230 [place] [address] [facility] 230 [place] [address] Type 2 diabetes mellitus with hyperglycemia (CMS/HCC) [...] (CMS/HCC) documented in this encounter Care Teams Director University Relationship Specialty Start Date End Date Neyda Chacko MD 230 [place], [place] [phone] PCP - General Family Medicine 02/22/18 documented as of this encounter
--- OUTSIDE RECORDS SUMMARY | 2024-04-12 10:28 | XMS_ITS | Encounter Summary ---
Author Organization [employer] Address 75 [facility] 7t [place] [address] Care Team Providers Care Ethylene Compressor Operator Name Role Phone Neyda Chacko MD Primary Care Provider [phone] Encounter Details Date Type Department Care Team (Latest Contact Info) Description 01/03/2019 Abstract [facility] CONVERSIONS Dental, Provider, DDS Social History Tobacco [...] on filedocumented in this encounter Care Teams Ethylene Compressor Operator Relationship Specialty Start Date End Date Neyda Chacko MD [address] [place] [phone] PCP - General Family Medicine 02/22/18 documented as of this encounter
--- OUTSIDE RECORDS SUMMARY | 2024-04-12 10:28 | XMS_ITS | Encounter Summary ---
Author Organization [employer] Address 75 [facility] 7t [place] [address] Care Team Providers Care Lithoduplicator Operator Name Role Phone Neyda Chacko MD Primary Care Provider [phone] Encounter Details Date Type Department Care Team ([facility] st Contact Info) Description 12/16/2023 Orders Only [facility] MEDICINE 230 [place], [place] [phone] Neyda Chacko MD 230 [place], [place] [phone] Leukopenia, unspecified type (Primary Dx) Social History [...] EDT) Pathologist Review - CBC SEE NOTE [facility] Comment:Peripheral blood joshua ments are normal appearing.- Yash Moreno M.D. Pathology Blood Venous blood specimen / Unknown 12/17/2023 12:02 PM EDT 12/17/2023 1:19 PM EDT us Neyda Chacko MD LAB BLOOD ORDERABLES Final Resul t [facility] [address] [place] [address] [phone] * (ABNORMAL) CBC auto differential (12/17/2023 12:02 PM EDT) White Blood Count 3.7(L) 4.8 - 10.8 X10*3/uL [facility] Red Blood Count 4.47 4.20 - 5.50 X10*6/uL [facility] Hemoglobin 13.0 12.0 - 16.0 g/dl [facility] Hematocrit 38.4 37.0 - 47.0 % [facility] Mean Corpuscular Volume 85.9 80.0 - 98.0 fL [facility] Mean Corpuscular Hemoglobin 29.1 27.0 - 33.0 pg [facility] Mean Corpuscular HGB Conc 33.9 31.0 - 35.0 g/dl [facility] Red Cell Distribution Width 11.9 11.0 - 16.0 % [facility] Platelet Count 209 160 - 400 X10*3/uL [facility] Mean Platelet Volume 9.7 9.4 - 12.3 fL [facility] Neutrophils Percent Auto 55.4 45 - 73 % [facility] Imm Gran Pct Auto 0.3 0.0 - 0.4 % [facility] Lymphocytes Percent Auto 33.4 20 - 40 % [facility] Monocytes Percent Auto 8.0 2 - 11 % [facility] Eosinophils Percent Auto 2.4 0 - 4 % [facility] Basophils Percent Auto 0.5 0 - 2 % [facility] NRBC Pct Auto 0.0 0.0 - 0.2 /100WBC [facility] Neutrophils Absolute Auto 2.1 2.0 - 8.3 x10*3/uL [facility] Imm Gran Abs Auto 0.01 0.00 - 0.03 X10*3/uL [facility] Lymphocytes Absolute Auto 1.3 1.2 - 4.9 X10*3/uL [facility] Monocytes Absolute Auto 0.3 0.1 - 1.2 X10*3/uL [facility] Eosinophils Absolute Auto 0.1 0.0 - 0.4 X10*3/uL [facility] Basophils Absolute Auto 0.0 0.0 - 0.2 X10*3/uL [facility] NRBC Abs Auto 0.000 0.0 - 0.012 X10*3/uL [facility] Blood Venous blood specimen / Unknown 12/17/2023 12:02 PM EDT 12/17/2023 1:19 PM EDT Neyda Chacko MD LAB BLOOD ORDERABLES Final Resul t [facility] [address] [place] [address] [phone] documented in this encounter Visit Diagnoses Diagnosis Leukopenia, unspecified type- Primary documented in this encounter Additional Health Concerns Assessment Noted Time PHQ-9 Depression Total Score: 7 06/15/19 24 10:57 AM EDT documented as of this encounter Care Teams Lithoduplicator Operator Relationship Specialty Start Date End Date Neyda Chacko MD [address] [place] [phone] PCP - General Family Medicine 02/22/18 documented as of this encounter
--- OUTSIDE RECORDS SUMMARY | 2024-04-12 10:28 | XMS_ITS | Encounter Summary ---
Author Organization [employer] Address [address] [facility] [address] 7t [place] [address] Care Team Providers Care Box Car Loader Name Role Phone Neyda Chacko MD Primary Care Provider [phone] Encounter Details Date Type Department Care Team (Late st Contact Info) Description 07/14/2023 Orders Only [facility] MEDICINE 230 [place], [place] [phone] Neyda Chacko MD 230 [place], [place] [phone] Social History Tobacco Use Types Packs/Day Years [...] documented as of this encounter Care Teams Box Car Loader Relationship Specialty Start Date End Date Neyda Chacko MD [address] [place] [phone] PCP - General Family Medicine 02/22/18 documented as of this encounter
--- OUTSIDE RECORDS SUMMARY | 2024-04-12 10:28 | XMS_ITS | Encounter Summary ---
Author Organization [employer] Address [address] [facility] 7t [place] [address] Care Team Providers Care Process Development Manager Name Role Phone Neyda Chacko MD Primary Care Provider [phone] Encounter Details Date Type Department Care Team (Late st Contact Info) Description 09/09/2023 Orders Only [facility] MEDICINE 230 [place], [place] [phone] Neyda Chacko MD [address] [place], [place] [phone] Essential hypertension (Primary Dx); Type 2 diabetes mellitus with hyperglycemia, with long-term current use of insulin ([facility]); Dyslipidemia; Weight loss Social History [...] hyperglycemia, with long-term current use of insulin ([facility]) TSH W/REFLEX TO FT4 Routine 12/15/2023 1 1:00 AM EDT Weight loss LIPID PANEL WITH REFLEX TO DIRECT LDL Routine 12/15/2023 11:00 AM EDT Type 2 diabetes mellitus with hyperglycemia, with long-term current use of insulin ([facility]) Dyslipidemia ALBUMIN, RANDOM URINE W/CREATININE Routine 12/15/2023 11:00 AM EDT Type 2 diabetes mellitus with hyperglycemia, with long-term current use of insulin ([facility]) CBC WITH AUTO DIFFERENTIAL Routine 12/15/2023 11:00 AM EDT Weight loss COMPREHENSIVE METABOLIC PANEL Routine 12/15/2023 11:00 AM EDT Essential hypertension documented in this encounter Results * (ABNORMAL) CBC auto differential (12/15/2023 11:00 AM EDT) White Blood Count 2.5(L) 4.8 - 10.8 X10*3/uL [facility] Red Blood Count 4.42 4.20 - 5.50 X10*6/uL [facility] Hemoglobin 12.7 12.0 - 16.0 g/dl [facility] Hematocrit 38.9 37.0 - 47.0 % [facility] Mean Corpuscular Volume 88.0 80.0 - 98.0 fL [facility] Mean Corpuscular Hemoglobin 28.7 27.0 - 33.0 pg [facility] Mean Corpuscular HGB Conc 32.6 31.0 - 35.0 g/dl [facility] Red Cell Distribution Width 12.0 11.0 - 16.0 % [facility] Platelet Count 180 160 - 400 X10*3/uL [facility] Mean Platelet Volume 9.8 9.4 - 12.3 fL [facility] Neutrophils Percent Auto 36.6(L) 45 - 73 % [facility] Imm Gran Pct Auto 0.4 0.0 - 0.4 % [facility] Lymphocytes Percent Auto 49.8(H) 20 - 40 % [facility] Monocytes Percent Auto 8.8 2 - 11 % [facility] Eosinophils Percent Auto 3.6 0 - 4 % [facility] Basophils Percent Auto 0.8 0 - 2 % [facility] NRBC Pct Auto 0.0 0.0 - 0.2 /100WBC [facility] Neutrophils Absolute Auto 0.9(L) 2.0 - 8.3 x10*3/uL [facility] Imm Gran Abs Auto 0.01 0.00 - 0.03 X10*3/uL [facility] Lymphocytes Absolute Auto 1.3 1.2 - 4.9 X10*3/uL [facility] Monocytes Absolute Auto 0.2 0.1 - 1.2 X10*3/uL [facility] Eosinophils Absolute Auto 0.1 0.0 - 0.4 X10*3/uL [facility] Basophils Absolute Auto 0.0 0.0 - 0.2 X10*3/uL [facility] NRBC Abs Auto 0.000 0.0 - 0.012 X10*3/uL [facility] Blood Venous blood specimen / Unknown 12/15/2023 11:00 AM EDT 12/15/2023 1:24 PM EDT Neyda Chacko MD LAB BLOOD ORDERABLES Edited Resu lt - Final Performing Organization Address City/[facility] Co de Phone Number [facility] [address] [place] [phone] * TSH with Reflex to Free T4 (12/15/2023 11:00 AM EDT) Pathologist [facility] TSH reflex Free T4 2.91 0.32 - 4.0 uIU/mL [facility] Blood 12/15/2023 11:0 0 AM EDT 12/15/2023 1:24 PM EDT Neyda Chacko MD LAB BLOOD ORDERABLES Final Resul t Performing Organization Address [facility] de Phone Number [facility] [address] [place] [phone] * (ABNORMAL) Comprehensive Metabolic Panel (12/15/2023 11:00 AM EDT) Sodium 142 135 - 145 mmol/L [facility] Potassium 4.0 3.3 - 5.1 mmol/L [facility] Chloride 107 96 - 108 mmol/L [facility] Carbon Dioxide 30(H) 22 - 29 mmol/L [facility] Anion Gap 9(L) 12 - 20 [facility] Urea Nitrogen (BUN) 18(H) 9 - 16 mg/dL [facility] Creatinine, Serum 0.68 0.5 - 1.4 mg/dL [facility] Estimated Glomerular Filt Rate >60 [facility] Comment:NOTE: For -Am erican individuals, multiply the result by 1.210.Chronic Kidney Disease: Estimated GFR < 60 mL/min/1.17j6Lythsn Kidney Disease: Estimated GFR < 15 mL/min/1.73m2 Glucose 161(H) 60 - 115 mg/dL [facility] Calcium 9.5 8.4 - 10.2 mg/dL [facility] Bilirubin, Total 0.2 0.0 - 1.0 mg/dL [facility] Aspartate Amino Transferase 34(H) 5 - 31 U/L [facility] Alanine Aminotransferase 49(H) 0 - 31 U/L [facility] Total Protein 6.9 6.5 - 8.0 g/dL [facility] Albumin Level 3.9 3.5 - 5.0 g/dL [facility] Alkaline Phosphatase 59 39 - 117 U/L [facility] Blood Venous blood specimen / Unknown 12/15/2023 11:00 AM EDT 12/15/2023 1:24 PM EDT Neyda Chacko MD LAB BLOOD ORDERABLES Final Resul t Performing Organization Address City/[facility] de Phone Number [facility] [address] [place] [address] [phone] * Albumin, Random Urine W/Creatinine (12/15/2023 11:00 AM EDT) Creatinine, Urine 75.29 mg/dL [facility] Microalbumin Urine 21.0 mg/L [facility] Microalbum Creatinine Ratio Ur 27.8 <30 ug/mg cr [facility] Comment:Albumin/Creatinine R atio Reference Ranges: Normal: < 30 ug/mg creatinine Microalbuminuria: 30 - 300 ug/mg creatinineClinical Albuminuria: > 300 ug/mg creatinine Urine 12/15/2023 11:0 0 AM EDT 12/15/2023 1:12 PM EDT us Neyda Chacko MD LAB URINE ORDERABLES Final Resul t Performing Organization Address City/[facility] Co de Phone Number [facility] [address] [place] [address] [phone] * Lipid Panel with Reflex to Direct LDL (12/15/2023 11:00 AM EDT) Triglycerides 45 <150 mg/dL [facility] Comment:Desirable Triglyceri de: less than 150 mg/dLBorderline High Triglyceride 150-199 mg/dLHigh Triglyceride: 200-499 mg/dLVery High Triglyceride: greater than or equal to 5OO mg/dL Cholesterol 113 <200 mg/dL [facility] Comment:Desirable Cholestero l: less than 200 mg/dLBorderline High Cholesterol: 200-239 mg/dLHigh Cholesterol: greater than 239 mg/dL LDL Cholesterol Calculated 51 <100 mg/dL [facility] Comment:Desirable LDL: less than 100 mg/dLNear Optimal/Above Optimal LDL: 110- 129 mg/dLBorderline High LDL: 130-159 mg/dLHigh LDL: 160-189 mg/dLVery High LDL: greater than or equal to 190 mg/dL HDL Cholesterol 53 >40 mg/dL [facility] Comment:Desirable HDL: great er than 40 mg/dL Note: This HDL assay may give artificially low results in patients with liver disease. Blood 12/15/2023 11:0 0 AM EDT 12/15/2023 1:24 PM EDT us Neyda Chacko MD LAB BLOOD ORDERABLES Final Resul t [facility] [address] [place] [phone] * Vitamin B12 (Cobalamin) and Folate Panel, Serum (12/15/2023 11:00 AM EDT) Vitamin B12 402 200 - 900 pg/mL [facility] Comment:NORMAL 200-900 PG/ML INDETERMINATE 160-199 PG/ML DEFICIENT < 160 PG/ML Folate 12.9 > or = 4.0 ng/mL [facility] Comment:Reference Values:> o r = 4.0 ng/mL< 4.0 ng/mL suggests folate deficiency Methotrexate, aminopterin and folinic acid(leucovorin) are chemotherapeutic agents whose molecularstructures are similar to folate; therefore, the Architectfolate assay cannot be used for patients using these drugs. Blood 12/15/2023 11:0 0 AM EDT 12/15/2023 1:24 PM EDT Neyda Chacko MD LAB BLOOD ORDERABLES Final Resul t [facility] [address] [place] [address] [phone] documented in this encounter Visit Diagnoses Diagnosis Essential hypertension- Primary Unspecified essential hypertension Type 2 diabetes mellitus with hyperglycemia, with long-term current use of insulin ([facility]) Dyslipidemia Other and unspecified hyperlipidemia Weight loss Loss of weight documented in this encounter Additional Health Concerns Assessment Noted Time PHQ-9 Depression Total Score: 7 06/15/19 24 10:57 AM EDT documented as of this encounter Care Teams Process Development Manager Relationship Specialty Start Date End Date Neyda Chacko MD [address] [place] [address] PCP - General Family Medicine 02/22/18 documented as of this encounter
--- OUTSIDE RECORDS SUMMARY | 2024-04-12 10:28 | XMS_ITS | Encounter Summary ---
Author Organization [employer] [facility] Address [address] [facility] 7t [place] [address] Care Team Providers Care Gold Buyer Name Role Phone Neyda Chacko MD Primary Care Provider [phone] Reason for Visit * Reason Onset Date Comments Med Refill 09/03/2022 Encounter Details Date Type Department Care Team (Late st Contact Info) Description 09/03/2022 Telephone [facility] MEDICINE [address] [place], [place] [phone] Neyda Chacko MD 230 [place], [place] [phone] Med Refill Social History Tobacco Use Types [...] documented as of this encounter Care Teams Gold Buyer Relationship Specialty Start Date End Date Neyda Chacko MD 230 [place] [address] PCP - General Family Medicine 02/22/18 documented as of this encounter
--- OUTSIDE RECORDS SUMMARY | 2024-04-12 10:28 | XMS_ITS | Clinical Summary ---
Author Organization 175 [facility] Address [address] [place] [address] Phone Care Team Providers Care Reaming Machine Operator For Plastic Name Role Phone Physician, Pcp Unknown Primary Care Provider Heena vailable Allergies No known active allergies Medications clotrimazole (LOTRIMIN) 1 % cream Apply topically 2 (two) times a day. Nails and skin 30 g 3 5 05/05/19 25 Active Encounters Date Type Department Care Team Description 04/04/2024 10:00 AM EST Office Visit Orthopedic Surgery [facility] 250 175 [facility] [address] [place] [phone] Alan Crisostomo, DPM Metatarsalgia of both feet [...] Upcoming Encounters Date Type Department Care Team ([facility] st Contact Info) Description 06/07/2024 11:00 AM EDT Office Visit Orthopedic Surgery - [place] 250 175 [facility] [address] [place] [address] Alna Crisostomo, DPM [address] [address] Health Maintenance Due Date Last Done Comments [...] patient's age to complete this topic Insurance [id number] [employer] Care Teams Reaming Machine Operator For Plastic Relationship Specialty Start Date End Date Physician, Pcp Unknown PCP - General 03/20/24
--- OUTSIDE RECORDS SUMMARY | 2024-04-12 10:28 | XMS_ITS | Encounter Summary ---
Author Organization [employer] Address 75 [facility] 7t [place] [address] Care Team Providers Care Shipping And Receiving Weigher Name Role Phone Neyda Chacko MD Primary Care Provider [phone] Encounter Details Date Type Department Care Team (Late st Contact Info) Description 01/26/2023 Orders Only [facility] MEDICINE 230 [place], [place] [phone] Neyda Chacko MD 230 [place], [place] [phone] Social History Tobacco Use Types Packs/Day Years [...] documented as of this encounter Care Teams Shipping And Receiving Weigher Relationship Specialty Start Date End Date Neyda Chacko MD [address] [place] [address] PCP - General Family Medicine 02/22/18 documented as of this encounter
--- OUTSIDE RECORDS SUMMARY | 2024-04-12 10:28 | XMS_ITS | Encounter Summary ---
Author Organization [employer] Address 75 [facility] 7t [place] [address] Care Team Providers Care Rehabilitation Therapy Technician Name Role Phone Neyda Chacko MD Primary Care Provider [phone] Reason for Visit * Reason Onset Date Comments Med Refill 10/27/2023 Encounter Details Date Type Department Care Team (Late st Contact Info) Description 10/27/2023 Telephone [facility] MEDICINE 230 [place], [place] [phone] Neyda Chacko MD 230 [place], [place] [phone] Med Refill Social History Tobacco Use Types [...] MG/3ML solution pen-injector To be sent to: [facility] - [place], [place] - 230 [facility] documented in this encounter Plan of Treatment Not on file documented as of this encounter Visit Diagnoses Not on filedocumented in this encounter Additional Health Concerns Assessment Noted Time PHQ-9 Depression Total Score: 7 06/15/19 24 10:57 AM EDT documented as of this encounter Care Teams Rehabilitation Therapy Technician Relationship Specialty Start Date End Date Neyda Chacko MD [address] [place] [address] PCP - General Family Medicine 02/22/18 documented as of this encounter
--- OUTSIDE RECORDS SUMMARY | 2024-04-12 10:28 | XMS_ITS | Encounter Summary ---
Author Organization [employer] Address [address] [facility] 7t [place] [address] Care Team Providers Care Bus Girl Name Role Phone Neyda Chacko MD Primary Care Provider Reason for Visit * Reason Onset Date Comments chart prep 03/28/2024 Encounter Details Date Type Department Care Team ([facility] st Contact Info) Description 03/28/2024 Telephone [facility] MEDICINE 230 [place], [place] [phone] Mariel Aragon [place] chart prep Social History [...] documented as of this encounter Care Teams Bus Girl Relationship Specialty Start Date End Date Neyda Chacko MD [address] [place] [address] PCP - General Family Medicine 02/22/18 documented as of this encounter
--- OUTSIDE RECORDS SUMMARY | 2024-04-12 10:28 | XMS_ITS | Encounter Summary ---
Author Organization [facility] Address [address] [place] [phone] Care Team Providers Care Sausage Inspector Name Role Phone Physician, Pcp Unknown Primary Care Provider Heena vailable Reason for Visit * Reason Comments Consult NPV-Diabetic foot ca re * Orthopedic (Routine) - Closed Specialty Diagnoses / Procedures Referred By Contact Referred To Contact Podiatry / Orthopaedic Surgery Diagnoses Type 2 diabetes mellitus with hyperglycemia medical terminologist (current) use of insulin Procedures AMB Referral to Podiatry. Neyda Chacko MD [address] [place] [phone] Phone: tel: fax: Alan Crisostomo DPM [address] [address] Phone: tel: fax: Referral ID Status Reason Start Date Expiration Date V isits Requested Visits Authorized [id number] Closed Consult and Treat 12/27/2023 12/26/2024 1 1 Encounter Details Date Type Department Care Team (Late st Contact Info) Description 04/04/2024 10:00 AM EST Office Visit Orthopedic Surgery - [place] [phone] [phone] Alan Crisostomo DPM [address] [address] Metatarsalgia of both feet (Primary Dx); Dermatophytosis [...] daily at night Follow-up in 1 month [id number]: Destruction of Plantar Verrucae: Verbal informed consent [...] AM EDT Office Visit Orthopedic Surgery - [place] [address] [phone] Alan Crisostomo DPM [address] [address] documented as of this encounter Visit Diagnoses [...] limb documented in this encounter Care Teams Sausage Inspector Relationship Specialty Start Date End Date Physician, Pcp Unknown PCP - General 03/20/24 documented as of this encounter
[2024-04-12] MEDS: Sodium Bicarbonate 8.4% 50 MEQ/50 ML VIAL SUBCUT (11:01)
[2024-04-12] MEDS: Lidocaine HCl 1 % 20 ML VIAL 15 ML SUBCUT (11:03)
== END 2024-04-12 09:59 | disposition home or self-care (01) ==
LOC: HO.MAMMO 09:58
PROVIDERS: PCP Family Medicine; Visit Provider Surgery
DX: R92.8 Other abnormal and inconclusive findings on diagnostic imaging of breast (principal)
CPT/HCPCS: 19083; 88305; A4648; J2003

== ENCOUNTER → 2024-04-12 10:00 | Outpatient (BNV) | payer OTHER, SELFPAY | PROVIDERS: PCP Family Medicine; Visit Provider Internal Medicine | DX: N63.10 Unspecified lump in the right breast, unspecified quadrant (principal) | CPT/HCPCS: 19083 ==

== ENCOUNTER 2024-04-21 08:45 | Outpatient (AMB) | payer OTHER, SELFPAY ==
--- NOTE | 2024-04-21 08:46 | MHC.OFFVIS ---
Vital Signs 04/21/24 08:51 Height 5 ft 2 in Weight 149 lb BMI 27.2 BP 120/59 L Blood Pressure Location Rt brachial Position Sitting Pulse 75 Intake Visit Reasons: us bx RESULTS right axilla mass Intake Note: Patient is seen in office for ultrasound biopsy RESULTS, following right axilla mass. Pt c/o: reports bx site healing well. Denies redness, oozing, pain. Certified Orthotic Fitter Required: No Accompanied by: grand son [place] Allergies pioglitazone [From [employer]] Allergy (Mild, Verified 04/21/24 08:52) EDEMA, unknown Medication List - Last Reviewed 04/21/24 by JAIDA Garcia aspirin 81 mg PO QPM blood sugar diagnostic (FreeStyle Lite Strips) As directed blood-glucose meter (FreeStyle Lite Meter kit) As directed buspirone 30 mg PO QAM AND QHS cholecalciferol (vitamin D3) 50 mcg PO QAM cilostazol 50 mg PO BID empagliflozin (Jardiance) 25 mg PO QAM 30 days ferrous sulfate (Iron (ferrous sulfate)) 325 mg PO QAM furosemide (Lasix) 10 mg PO QAM glucagon 3 mg/actuation (Baqsimi) 3 mg intranasal ONCE insulin degludec (Tresiba FlexTouch U-200 insulin) 70 units (0.35 mL) subcut DAILY insulin lispro Inject 8-12 units prior to meals subcutaneously use as directed; insulin syringe-needle U-100 (BD Veo Insulin Syringe Ultra-Fine) 1 mL miscellaneous .3 times a day 90 days lancets (FreeStyle Lancets) 3 times a day lisinopril-hydrochlorothiazide 20-12.5 mg 2 tabs PO DAILY lorazepam 1-2 tabs. Max 2 tabs PO 2 times a day PRN; metformin ER 1,000 mg (2 x 500 mg) PO BID metoclopramide HCl 10 mg PO QIDACHS metoprolol tartrate 50 mg PO BID pantoprazole 40 mg PO BID pen needle, diabetic (BD Irais 2nd Gen Pen Needle) 5 times a day penicillin V potassium 500 mg PO BID 10 days rosuvastatin 40 mg PO BEDTIME 90 days semaglutide (Ozempic) 2 mg (0.75 mL) subcut QWEEK sennosides (senna) 17.2 mg (2 x 8.6 mg) PO BEDTIME PRN sucralfate (Carafate) 20 mL PO DAILY tramadol 50 mg PO DAILY PRN venlafaxine ER 150 mg PO QAM zolpidem 10 mg PO BEDTIME PRN HPI Comments Details: 64-year-old female patient presenting for evaluation of a palpable mass in the right axilla which she 1st noted approximately 1 month ago. Since this time the lump has increased slightly in size in his associated with some minor discomfort with palpation. She subsequently was evaluated by diagnostic mammogram and ultrasound on 03/15/2024. This revealed no suspicious findings on mammogram however ultrasound did reveal a subdermal lesion corresponding to the palpable mass. This was felt to be suspicious for malignancy an ultrasound-guided core biopsy recommended. She denies a previous history of breast problems or breast surgery. Her family history is significant for 1 daughter with ovarian cancer. She denies any family history of breast cancer. She is . Menarche was the age of 10 and menopause at the age of 59. White an ultrasound-guided core biopsy on 04/12/2024 at the [facility]. Pathology revealed fragments of benign squamous epithelium and keratinization material, consistent with an epidermal inclusion cyst. No malignancy was identified. She reports some soreness at the biopsy site but otherwise feels well. [facility] Medical History Colon cancer screening Upper abdominal pain Nausea and vomiting Diarrhea MCFP current use of insulin Obesity with body mass index of 30.0-39.9 Hypoglycemia associated with type 2 diabetes mellitus Diabetes type 2, uncontrolled Heart murmur COVID-19 vaccine administered Diabetic neuropathy associated with type 2 diabetes mellitus Background diabetic retinopathy associated with type 2 diabetes mellitus PATRICIA (obstructive sleep apnea) Hemorrhoids Asthma Type 2 diabetes mellitus with mild nonproliferative diabetic retinopathy without macular edema, bilateral Type 2 diabetes mellitus with hyperglycemia, with long-term current use of insulin Essential hypertension Dyslipidemia Menometrorrhagia Polypharmacy Depression Allergic rhinitis Venous insufficiency Anemia Obesity Constipation HTN (hypertension) Surgical History History of esophagogastroduodenoscopy (EGD) Hx of colonoscopy History of bilateral tubal ligation Family History Father No problems noted. Mother Heart disease HTN (hypertension) Diabetes Pacemaker Depression Family/Other Diabetes Daughter Cancer Social History Household Members: None Are you a primary urgent care physician assistant to a significant other at home: No Do you presently have visiting nurse or other home services: No Alcohol intake: never Patient Tobacco Use Status: Never used Tobacco Sexual orientation: Straight/Heterosexual Gender identity: Female Female Reproductive History Menstrual Age of Menarche: 10 Review of Systems Const All systems reviewed & are unremarkable except as noted in HPI and below Physical Exam Vital Signs: Last Vital Signs Pulse 75 04/21/24 08:51 BP 120/59 L 04/21/24 08:51 BMI result Body Mass Index 27.2 Const General: cooperative and no acute distress Nutritional Appearance: well nourished Orientation/consciousness: patient oriented x3 Limitations: no limitations HEENT Head: Yes normocephalic and Yes atraumatic Ears: hearing grossly normal bilaterally Chest Other: Breast exam deferred. Exam limited to right axilla. Palpable dermal lesion with central punctum noted in the lower axilla suggestive of a epidermal inclusion cyst measuring approximately 1.5 to 2 cm in diameter. Some skin ulceration from the Tegaderm dressing is noted. Biopsy site is clean and intact. No evidence of infection. Resp Effort & Inspection: normal respiratory effort, no audible wheezes, no cough and no respiratory distress Cardio Jugular venous distension: no JVD GI Inspection: Yes normal to inspection Skin Other: Warm, dry, no rash Neuro General: patient oriented x3 Extrem General: Yes no clubbing, cyanosis or edema Assessment & Plan Assessment & Plan (1) Abnormal ultrasound of breast: Code(s): R92.8 - Other abnormal and inconclusive findings on diagnostic imaging of breast Category: Medical Plan 64-year-old female patient with no previous breast problems presenting with a palpable mass in the right axilla. This has been present for least 1 month and is gradually increasing in size. Workup with mammogram and ultrasound revealed no suspicious breast problems however in the axilla a subdermal lesion is identified. Ultrasound-guided core biopsy revealed evidence of an epidermal inclusion cyst as suspected. We discussed excision of this lesion as an option versus observation. She wishes to hold off on any procedure at this time but will call if she wishes to have the cyst excised. Coding Level of Care Code Est Pt Level 3 (98631) Diagnoses Abnormal ultrasound of breast R92.8
[2024-04-21 08:51] VITALS: BP 120/59; PULSE 75; BMI 27.2
--- OUTSIDE RECORDS SUMMARY | 2024-04-21 09:03 | XMS_ITS | Encounter Summary ---
Author Organization [employer] Address [address] [facility] [address] [place] [address] Care Team Providers Care Spinner Frame Name Role Phone Neyda Chacko MD Primary Care Provider [phone] Reason for Visit * Reason Comments Med Refill Encounter Details Date Type Department Care Team (Late st Contact Info) Description 04/15/2024 Refill [facility] [address] [place], [place] [phone] Neyda Chacko MD [address] [place], [place] [phone] Peripheral arterial occlusive disease (CMS/HCC) Social History [...] documented as of this encounter Care Teams Spinner Frame Relationship Specialty Start Date End Date Neyda Chacko MD [address] [place] [address] PCP - General Family Medicine 02/22/18 documented as of this encounter
--- OUTSIDE RECORDS SUMMARY | 2024-04-21 09:03 | XMS_ITS | Encounter Summary ---
Author Organization [employer] Address [address] [facility] [address] [place] [address] Care Team Providers Care Microelectronics Assembler Name Role Phone Neyda Chacko MD Primary Care Provider [phone] Encounter Details Date Type Department Care Team ([facility] st Contact Info) Description 03/10/2022 Telephone [facility]INE [address] [place], [place] [phone] Neyda Chacko MD [address] [place], [place] [phone] Social History Tobacco Use Types Packs/Day Years [...] on filedocumented in this encounter Care Teams Microelectronics Assembler Relationship Specialty Start Date End Date Neyda Chacko MD [address] [place] [address] PCP - General Family Medicine 02/22/18 documented as of this encounter
--- OUTSIDE RECORDS SUMMARY | 2024-04-21 09:03 | XMS_ITS | Encounter Summary ---
Author Organization [employer] Address [address] [facility] [address] [place] [address] Care Team Providers Care Household Appliances Service Technician Name Role Phone Neyda Chacko MD Primary Care Provider [phone] Reason for Visit * Reason Onset Date Comments Appointment Request 02/19/2023 Encounter Details Date Type Department Care Team ([facility] st Contact Info) Description 02/19/2023 Telephone [facility]INE [address] [place], [place] [phone] Neyda Chacko MD [address] [place], [place] [phone] Appointment Request Social History Tobacco Use Types [...] daughter requesting to reschedule appt for 02/19 ASSOCIATE PROFESSOR OF 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
--- OUTSIDE RECORDS SUMMARY | 2024-04-21 09:03 | XMS_ITS | Encounter Summary ---
Author Organization [employer] Address [address] [facility] 7t [place] [address] Care Team Providers Care Instructor Business Education Name Role Phone Neyda Chacko MD Primary Care Provider [phone] Encounter Details Date Type Department Care Team (Late st Contact Info) Description 03/06/2022 Orders Only [facility] MED[facility]INE [address] [place], [place] [phone] Misa Tillman LPN Social History Tobacco Use [...] on filedocumented in this encounter Care Teams Instructor Business Education Relationship Specialty Start Date End Date Neyda Chacko MD [address] [place] [address] PCP - General Family Medicine 02/22/18 documented as of this encounter
--- OUTSIDE RECORDS SUMMARY | 2024-04-21 09:03 | XMS_ITS | Encounter Summary ---
Author Organization [employer] Address [address] [facility] [address] [place] [address] Care Team Providers Care Automatic Pattern Edger Name Role Phone Neyda Chacko MD Primary Care Provider [phone] Reason for Visit * Reason Onset Date Comments Durable Medical Equipment 01/26/2023 Encounter Details Date Type Department Care Team (Late st Contact Info) Description 01/26/2023 Telephone [facility] MED[facility]INE [address] [place], [place] [phone] Neyda Chacko MD [address] [place], [place] [phone] Durable Medical Equipment Social History Tobacco Use [...] readings would like the patient to use SGB Joelle 2 System documented in this encounter Plan of Treatment Not on file documented as of this encounter Visit Diagnoses Not on filedocumented in this encounter Additional Health Concerns Assessment Noted Time PHQ-9 Depression Total Score: 5 03/12/19 23 10:44 AM EST documented as of this encounter Care Teams Automatic Pattern Edger Relationship Specialty Start Date End Date Neyda Chacok MD [address] [place] [address] PCP - General Family Medicine 02/22/18 documented as of this encounter
--- OUTSIDE RECORDS SUMMARY | 2024-04-21 09:03 | XMS_ITS | Encounter Summary ---
Author Organization [employer] Address [address] [facility] [address] [place] [address] Care Team Providers Care Automobile Mechanic Radiator Name Role Phone Neyda Chacko MD Primary Care Provider [phone] Encounter Details Date Type Department Care Team ([facility] st Contact Info) Description 12/16/2023 Orders Only [facility] MED[facility] [address] [place], [place] [phone] Neyda Chacko MD [address] [place], [place] [phone] Leukopenia, unspecified type (Primary Dx) Social History [...] EDT) Pathologist Review - CBC SEE NOTE [facility] Comment:Peripheral blood joshua ments are normal appearing.- Yash Moreno M.D. Pathology Blood Venous blood specimen / Unknown 12/17/2023 12:02 PM EDT 12/17/2023 1:19 PM EDT us Neyda Chacko MD LAB BLOOD ORDERABLES Final Resul t [facility] [address] [place] [address] [phone] * (ABNORMAL) CBC auto differential (12/17/2023 12:02 PM EDT) White Blood Count 3.7(L) 4.8 - 10.8 X10*3/uL [facility] Red Blood Count 4.47 4.20 - 5.50 X10*6/uL [facility] Hemoglobin 13.0 12.0 - 16.0 g/dl [facility] Hematocrit 38.4 37.0 - 47.0 % [facility] Mean Corpuscular Volume 85.9 80.0 - 98.0 fL [facility] Mean Corpuscular Hemoglobin 29.1 27.0 - 33.0 pg [facility] Mean Corpuscular HGB Conc 33.9 31.0 - 35.0 g/dl [facility] Red Cell Distribution Width 11.9 11.0 - 16.0 % [facility] Platelet Count 209 160 - 400 X10*3/uL [facility] Mean Platelet Volume 9.7 9.4 - 12.3 fL [facility] Neutrophils Percent Auto 55.4 45 - 73 % [facility] Imm Gran Pct Auto 0.3 0.0 - 0.4 % [facility] Lymphocytes Percent Auto 33.4 20 - 40 % [facility] Monocytes Percent Auto 8.0 2 - 11 % [facility] Eosinophils Percent Auto 2.4 0 - 4 % [facility] Basophils Percent Auto 0.5 0 - 2 % [facility] NRBC Pct Auto 0.0 0.0 - 0.2 /100WBC [facility] Neutrophils Absolute Auto 2.1 2.0 - 8.3 x10*3/uL [facility] Imm Gran Abs Auto 0.01 0.00 - 0.03 X10*3/uL [facility] Lymphocytes Absolute Auto 1.3 1.2 - 4.9 X10*3/uL [facility] Monocytes Absolute Auto 0.3 0.1 - 1.2 X10*3/uL [facility] Eosinophils Absolute Auto 0.1 0.0 - 0.4 X10*3/uL [facility] Basophils Absolute Auto 0.0 0.0 - 0.2 X10*3/uL [facility] NRBC Abs Auto 0.000 0.0 - 0.012 X10*3/uL [facility] Blood Venous blood specimen / Unknown 12/17/2023 12:02 PM EDT 12/17/2023 1:19 PM EDT Neyda Chacko MD LAB BLOOD ORDERABLES Final Resul t [facility] [address] [place] [address] [phone] documented in this encounter Visit Diagnoses Diagnosis Leukopenia, unspecified type- Primary documented in this encounter Additional Health Concerns Assessment Noted Time PHQ-9 Depression Total Score: 7 06/15/19 24 10:57 AM EDT documented as of this encounter Care Teams Automobile Mechanic Radiator Relationship Specialty Start Date End Date Neyda Chacko MD [address] [place] [phone] PCP - General Family Medicine 02/22/18 documented as of this encounter
--- OUTSIDE RECORDS SUMMARY | 2024-04-21 09:03 | XMS_ITS | Encounter Summary ---
Author Organization [employer] Address [address] 7t [place] [address] Care Team Providers Care Extrusion Press Adjuster Name Role Phone Neyda Chacko MD Primary Care Provider [phone] Encounter Details Date Type Department Care Team (Late st Contact Info) Description 04/12/2024 Orders Only [facility] External Provider, [facility] [place] Social History Tobacco Use Types Packs/Day Years [...] Procedure Name Priority Date/Time Associated Diagnosis Comments HEMATOXYLIN AND EOSIN STAIN Routine 04/12/2024 10:44 AM EST BREAST NDL CORE BIOPSY RT Routine 04/12/2024 10:00 AM EST documented in this encounter Results * Hematoxylin and Eosin Stain (04/12/2024 10:44 AM EST) 04/12/2024 10:4 4 AM EST 04/12/2024 11:16 AM EST [facility] LABS - 04/13/2024 4:09 PM EST ----- ------- Name: Jaimee Guzman I ? Age/Sex: 64/F ? : 1960 Unit#: [id number] ?? Attend Dr: Walter Moon MD ?Re04/12/24 ?Status: DEP REF ? Location: HO.MAMMO ?Disch: ? ----- ------- SPEC : [id number] ?RECD: 04/12/24-1116 ? STATUS: ??SOUT ? REQ NUM: [id number] ? HUMBERTO: 04/12/24-1043 ? SUBM DR: Nereyda Carvajal DO ? ENTERED: ??04/12/24 ?SP TYPE: Surgical ? OTHR DR: Walter Moon MD ?Neyda Chacko MD ORDERED: ??HE Stain/2, Gross Micro L4 ? COMMENTS: As per the specimen requisition slip the specimen is ?collected at 1044 and placed in formalin at 1052. ? Diagnosis ?? Soft tissue, right axilla, excision: Fragments of benign squamous epithelium and ?? keratinaceous material, consistent with epidermal inclusion cyst; no malignancy ?? identified. ?Clinical History Right axillary mass ? skin lesion ?Microscopic Description Microscopic sections reviewed. ? Material Received ?? Right axillary mass ? skin lesion ? Gross Description Received in formalin labeled ?right axillary mass are multiple minute to 0.15 cm in greatest dimension irregular shards of patel-white and rojas-patel tissue versus debris aggregating 0.9 x 0.9 by less than 0.1 cm, submitted in toto in a cassette labeled A. ??CEDS This case was reviewed intradepartmentally. Copies To: ?? Walter Moon MD ?? [facility] ?? [address] ?? [place] [address] ?? [phone] ?? Neyda Chacko MD ?? [facility] ?? [address] ?? [place] [address] ?? [phone] ? CONTINUED ON NEXT PAGE ----- ------- Name: Jaimee Guzman I ? Age/Sex: 64/F ? : 1960 Unit#: [id number] ?? Attend Dr: Walter Moon MD ?Re04/12/24 ?Status: DEP REF ? Location: HO.MAMMO ?Disch: ? ----- ------- SPEC : [id number] ?RECD: 04/12/24 ? STATUS: ??SOUT ? REQ NUM: [id number] ? HUMBERTO: 04/12/24 ? SUBM DR: Nereyda Carvajal DO ? ENTERED: ??04/12/24 ?SP TYPE: Surgical ? OTHR DR: Walter Moon MD ?Neyda Chacko MD ORDERED: ??HE Stain/2, Gross Micro L4 ? COMMENTS: As per the specimen requisition slip the specimen is ?collected at 1044 and placed in formalin at 1052. Copies To: ??(Continued) ?? Nereyda Carvajal DO ?? [address] [facility] ?? [place] [address] ?? [phone] ----- ------- Signed (signature on file) Yash Moreno MD 04/13/24 2969 ? ----- ------- ? END OF REPORT ? us Generic External Data Provider LAB BLOOD ORDERAB LES Final Result Performing Organization Address City/State/[facility] Co de Phone Number [facility] [address] [facility] [place] [phone] * BREAST NDL CORE BIOPSY RT (04/12/2024 10:00 AM EST) Anatomical Region Laterality Modality Abdomen Ultrasound 04/12/2024 10:0 0 AM EST Narrative 04/12/2024 12:13 PM EST ? [facility] [place] ? [address] ?[place] [address] ? Ultrasound Report ? Signed with Addenda ? Patient: Guzman,Jaimee I ?MR#: [id number] ?? 2030 ? : 1960 ?Acct:[id number] ? Age/Sex: 64 / F ?ADM Date: 02/19/25 ? Loc: HO.MAMMO ? Attending Dr: Walter Moon MD ? Ordering Physician: Walter Moon MD ?? Date of Service: 04/12/24 ?? Procedure(s): US breast ndl core biopsy RT ?? Accession Number(s): [id number] ? cc: Walter Moon MD; Neyda Chacko MD; Ry Curtis MD ?ADDENDUM ? ADDENDUM #1 ? Right axillary subcutaneous mass: Fragments of benign squamous ?? epithelium and keratinaceous material, consistent with epidermal ?? inclusion cyst: No malignancy identified. Benign and concordant. ?? Recommend clinical follow-up. ? Electronically signed by: ??Nereyda Carvajal DO ??04/19/2024 10:05 AM EST ? Addendum Dictated By: ?Nereyda Carvajal, DO ? Addendum Signed By: ? <Electronically signed by Nereyda Carvajal, DO in OV> ? 04/19/24 1005 ?? Addendum Cosigned By: ? DD/ ? TD/TT: 04/12/24 ? PROCEDURE: ?? ULTRASOUND-GUIDED RIGHT AXILLA BIOPSY ? CLINICAL INFORMATION: ?? Subdermal axillary mass which was palpable. ? COMPARISON: ?? Comparison is made with available prior examinations. ? TECHNIQUE: ?? The details of the procedure, as well as the risks, benefits, and ?? alternatives to the procedure were explained to the patient in detail ?? and all of her questions were answered, after which, written informed ?? consent was obtained. ? PROCEDURE: ?? Prior to the procedure, sonography revealed oval subdermal hypoechoic ?? axillary mass.. A time-out was performed, the lesion intended for ?? biopsy was targeted and the skin of the right axilla was then prepped ?? and draped in the usual sterile fashion. ? Using sonographic guidance, sterile technique, and 1% lidocaine without ?? epinephrine for local anesthesia, a total of 5 cores were obtained ?? through the targeted area with a 18-gauge biopsy device. At the ?? completion of tissue sampling, a single [coil metallic clip was ?? deposited at the biopsy site. ? An appropriate sample was obtained. ? No postprocedural mammogram was obtained and this area was not ?? visualized on mammography. ? The patient tolerated the procedure well and, after assuring adequate ?? hemostasis, was discharged in good condition after reviewing postbiopsy ?? axillary care instructions. Final pathology results are pending. ? US/US breast ndl core biopsy RT ?? IMPRESSION: ?? 1. Uncomplicated sonographically-guided core biopsy of the right axilla ?? 2. Final pathology results are pending. A separate report with final ?? recommendations will be issued once these results are made available. ? Electronically signed by: ??Nereyda Carvajal DO ??04/12/2024 12:10 PM EST ?? RP ? Dictated By: ?Nereyda Carvajal DO ? Signed By: ?<Electronically signed by Nereyda Carvajal DO in OV> ? 04/12/24 1210 ? DD/ 1000 ? TD/TT: 04/12/24 1100 ? Machine Edge Bander: ? Procedure Note Donhardynahomiter, Image - 04/19/2024 [place] [facility]'s [address] [place], [place] [address] Ultrasound Report Signed with Esa Patient: Jaimee Guzman IMR#: [id number] 2030 : 9Acct:[id number] Age/Sex: 64 / FADM Date: 04/12/24 Loc: HO.MAMMO Attending Dr: Walter Moon MD Ordering Physician: Walter Moon MD Date of Service: 04/12/24 Procedure(s): breast ndl core biopsy RT Accession Number(s): [id number] cc: Walter Moon MD; Neyda Chacko MD; Ry Curtis MD ADDENDUM ADDENDUM #1 Right axillary subcutaneous mass: Fragments of benign squamous epithelium and keratinaceous material, consistent with epidermal inclusion cyst: No malignancy identified. Benign and concordant. Recommend clinical follow-up. Electronically signed by: Nereyda Carvajal DO 04/19/2024 10:05 AM EST Addendum Dictated By: Nereyda Carvajal DO Addendum Signed By: <Electronically signed by DO Ronda in OV> 04/19/24 1005 Addendum Cosigned By: DD/ TD/TT: 04/12/24 PROCEDURE: ULTRASOUND-GUIDED RIGHT AXILLA BIOPSY CLINICAL INFORMATION: Subdermal axillary mass which was palpable. COMPARISON: Comparison is made with available prior examinations. TECHNIQUE: The details of the procedure, as well as the risks, benefits, and alternatives to the procedure were explained to the patient in detail and all of her questions were answered, after which, written informed consent was obtained. PROCEDURE: Prior to the procedure, sonography revealed oval subdermal hypoechoic axillary mass.. A time-out was performed, the lesion intended for biopsy was targeted and the skin of the right axilla was then prepped and draped in the usual sterile fashion. Using sonographic guidance, sterile technique, and 1% lidocaine without epinephrine for local anesthesia, a total of 5 cores were obtained through the targeted area with a 18-gauge biopsy device. At the completion of tissue sampling, a single [coil metallic clip was deposited at the biopsy site. An appropriate sample was obtained. No postprocedural mammogram was obtained and this area was not visualized on mammography. The patient tolerated the procedure well and, after assuring adequate hemostasis, was discharged in good condition after reviewing postbiopsy axillary care instructions. Final pathology results are pending. US/US breast ndl core biopsy RT IMPRESSION: 1. Uncomplicated sonographically-guided core biopsy of the right axilla 2. Final pathology results are pending. A separate report with final recommendations will be issued once these results are made available. Electronically signed by: Nereyda Carvajal DO 04/12/2024 12:10 PM [facility] Dictated By: Nereyda Carvajal DO Signed By: <Electronically signed by Nereyda Carvajal DO in OV> 04/12/24 1210 DD/ 1000 TD/TT: 04/12/24 1100 Machine Edge Bander: [facility] External Provider IMG US PROCEDURES Edited Result - Final documented in this encounter Visit Diagnoses Not on filedocumented in this encounter Additional Health Concerns Assessment Noted Time PHQ-9 Depression Total Score: 7 06/15/19 24 10:57 AM EDT documented as of this encounter Care Teams Extrusion Press Adjuster Relationship Specialty Start Date End Date Neyda Chacko MD [address] [place] [address] PCP - General Family Medicine 02/22/18 documented as of this encounter
--- OUTSIDE RECORDS SUMMARY | 2024-04-21 09:03 | XMS_ITS | Encounter Summary ---
Author Organization [employer] Address [address] [facility] 7t [place] [address] Care Team Providers Care Screen Maker Name Role Phone Neyda Chacko MD Primary Care Provider Encounter Details Date Type Department Care Team (Late st Contact Info) Description 03/12/2022 Abstract [facility] MEDICINE 230 [place], [place] [phone] Neyda Chacko MD 230 [place], [place] [phone] Social History Tobacco Use Types Packs/Day Years [...] documented as of this encounter Care Teams Screen Maker Relationship Specialty Start Date End Date Neyda Chacko MD [address] [place] [address] PCP - General Family Medicine 02/22/18 documented as of this encounter
--- OUTSIDE RECORDS SUMMARY | 2024-04-21 09:03 | XMS_ITS | Encounter Summary ---
Author Organization [employer] Address [address] [facility] 7t [place] [address] Care Team Providers Care Provisioning Analyst Name Role Phone Neyda Chacko MD Primary Care Provider [phone] Encounter Details Date Type Department Care Team (Latest Contact Info) Description 01/03/2019 Abstract [facility] CONVERSIONS Dental, Provider, DDS Social History [...] on filedocumented in this encounter Care Teams Provisioning Analyst Relationship Specialty Start Date End Date Neyda Chacko MD [address] [place] [address] PCP - General Family Medicine 02/22/18 documented as of this encounter
--- OUTSIDE RECORDS SUMMARY | 2024-04-21 09:03 | XMS_ITS | Encounter Summary ---
Author Organization [employer] Address [address] [facility] 7t [place] [address] Care Team Providers Care Oil Burner Repairer Name Role Phone Neyda Chacko MD Primary Care Provider [phone] Encounter Details Date Type Department Care Team [...] on filedocumented in this encounter Care Teams Oil Burner Repairer Relationship Specialty Start Date End Date Neyda Chacko MD [address] [place] [address] PCP - General Family Medicine 02/22/18 documented as of this encounter
--- OUTSIDE RECORDS SUMMARY | 2024-04-21 09:03 | XMS_ITS | Encounter Summary ---
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 Neyda Chacko MD [address] [place] [phone] Phone: tel: fax: Alan Crisostomo DPM [address] [address] Phone: tel: fax: Referral ID Status Reason Start Date Expiration Date V isits Requested Visits Authorized [id number] Closed Consult and Treat 12/27/2023 12/26/2024 1 1 Encounter Details Date Type Department Care Team (Late st Contact Info) Description 04/04/2024 10:00 AM EST Office Visit Orthopedic Surgery - [place] [address] [address] Alan Crisostomo DPM [address] [address] Metatarsalgia of both feet (Primary Dx); Dermatophytosis [...] daily at night Follow-up in 1 month [id number]: Destruction of Plantar Verrucae: Verbal informed consent [...] AM EDT Office Visit Orthopedic Surgery - [place] [address] [address] Alan Crisostomo DPM [address] [address] documented as of this encounter Visit Diagnoses [...] limb documented in this encounter Care Teams Buffing Machine Operator Semiautomatic Relationship Specialty Start Date End Date Physician, Pcp Unknown PCP - General 03/20/24 documented as of this encounter
--- OUTSIDE RECORDS SUMMARY | 2024-04-21 09:03 | XMS_ITS | Encounter Summary ---
Author Organization [employer] Address [address] [place] [address] 7t [place] [address] Care Team Providers Care Explosion Welder Name Role Phone Neyda Chacko MD Primary Care Provider [phone] Reason for Visit * Reason Comments Med Refill Encounter Details Date Type Department Care Team (Late st Contact Info) Description 01/28/2022 Refill [facility] MEDICINE 230 [place] [address] [facility] 230 [place] [address] Type 2 diabetes mellitus with hyperglycemia (CMS/HCC) [...] (CMS/HCC) documented in this encounter Care Teams Explosion Welder Relationship Specialty Start Date End Date Neyda Chacko MD 230 [place], [place] [phone] PCP - General Family Medicine 02/22/18 documented as of this encounter
--- OUTSIDE RECORDS SUMMARY | 2024-04-21 09:03 | XMS_ITS | Clinical Summary ---
Author Organization [address] [facility] Address 175 [place] [address] Phone Care Team Providers Care Children'S Nursery Assistant Name Role Phone Physician, Pcp Unknown Primary Care Provider Heena vailable Allergies No known active allergies Medications clotrimazole (LOTRIMIN) 1 % cream Apply topically 2 (two) times a day. Nails and skin 30 g 3 5 05/05/19 25 Active Encounters Date Type Department Care Team Description 04/04/2024 10:00 AM EST Office Visit Orthopedic Surgery [facility] 250 175 [facility] [address] [place] [phone] Alan Crisostomo, DPM Metatarsalgia of both feet [...] Upcoming Encounters Date Type Department Care Team ([facility] st Contact Info) Description 06/07/2024 11:00 AM EDT Office Visit Orthopedic Surgery - [place] 250 175 [facility] 250 [place] [address] Alan Crisostomo, DPM [address] [address] Health Maintenance Due Date Last Done Comments [...] patient's age to complete this topic Insurance [id number] [employer] Care Teams Children'S Nursery Assistant Relationship Specialty Start Date End Date Physician, Pcp Unknown PCP - General 03/20/24
--- OUTSIDE RECORDS SUMMARY | 2024-04-21 09:03 | XMS_ITS | Encounter Summary ---
Author Organization [employer] Address [address] 7[address] [place] [address] Care Team Providers Care Fundraising Assistant Name Role Phone Neyda Chacko MD Primary Care Provider [phone] Reason for Visit * Reason Comments Med Refill Encounter Details Date Type Department Care Team (Late st Contact Info) Description 04/13/2024 Refill [facility] [address] [place], [place] [phone] Neyda Chacko MD 230 [place], [place] [phone] Type 2 diabetes mellitus with hyperglycemia, with long-term current use of insulin ([facility]) Social History Tobacco Use Types Packs/Day [...] hyperglycemia, with long-term current use of insulin ([facility]) documented in this encounter Additional Health Concerns Assessment Noted Time PHQ-9 Depression Total Score: 7 06/15/19 24 10:57 AM EDT documented as of this encounter Care Teams Fundraising Assistant Relationship Specialty Start Date End Date Neyda Chacko MD [address] [place] [address] PCP - General Family Medicine 02/22/18 documented as of this encounter
--- OUTSIDE RECORDS SUMMARY | 2024-04-21 09:03 | XMS_ITS | Encounter Summary ---
Author Organization [employer] Address [address] [facility] 7t [place] [address] Care Team Providers Care Timber Skidder Name Role Phone Neyda Chacko MD Primary Care Provider [phone] Encounter Details Date Type Department Care Team (Late st Contact Info) Description 01/26/2023 Orders Only [facility] MEDICINE 230 [place], [place] [phone] Neyda Chacko MD 230 [place], [place] [phone] Social History Tobacco Use Types Packs/Day Years [...] documented as of this encounter Care Teams Timber Skidder Relationship Specialty Start Date End Date Neyda Chacko MD 230 [place] [address] PCP - General Family Medicine 02/22/18 documented as of this encounter
--- OUTSIDE RECORDS SUMMARY | 2024-04-21 09:04 | XMS_ITS | Encounter Summary ---
Author Organization [employer] Address [address] [facility] 7t [place] [address] Care Team Providers Care Beet Flumer Name Role Phone Neyda Chacko MD Primary Care Provider [phone] Reason for Visit * Reason Onset Date Comments chart prep 03/28/2024 Encounter Details Date Type Department Care Team ([facility] st Contact Info) Description 03/28/2024 Telephone [facility] MEDICINE 230 [place], [place] [phone] Mariel Aragon [place] chart prep Social History [...] documented as of this encounter Care Teams Beet Flumer Relationship Specialty Start Date End Date Neyda Chacko MD 230 [place] [address] PCP - General Family Medicine 02/22/18 documented as of this encounter
--- OUTSIDE RECORDS SUMMARY | 2024-04-21 09:04 | XMS_ITS | Encounter Summary ---
Author Organization [employer] Address [address] [facility] 7t [place] [address] Care Team Providers Care Certified Surgical Assistant Name Role Phone Neyda Chacko MD Primary Care Provider [phone] Encounter Details Date Type Department Care Team (Late st Contact Info) Description 11/02/[address] [facility] MEDICINE 230 [place], [place] [phone] Neyda Chacko MD 230 [place], [place] [phone] Type 2 diabetes mellitus with hyperglycemia, with long-term current use of insulin ([facility]) Social History Tobacco [...] hyperglycemia, with long-term current use of insulin ([facility]) documented in this encounter Additional Health Concerns Assessment Noted Time PHQ-9 Depression Total Score: 7 06/15/19 24 10:57 AM EDT documented as of this encounter Care Teams Certified Surgical Assistant Relationship Specialty Start Date End Date Neyda Chacko MD [address] [place] [address] PCP - General Family Medicine 02/22/18 documented as of this encounter
--- OUTSIDE RECORDS SUMMARY | 2024-04-21 09:04 | XMS_ITS | Encounter Summary ---
Author Organization [employer] Address [address] [facility] [address] 7t [place] [address] Care Team Providers Care Cake Icer Name Role Phone Neyda Chacko MD Primary Care Provider [phone] Encounter Details Date Type Department Care Team [...] documented as of this encounter Care Teams Cake Icer Relationship Specialty Start Date End Date Neyda Chacko MD [address] [place] [address] PCP - General Family Medicine 02/22/18 documented as of this encounter
--- OUTSIDE RECORDS SUMMARY | 2024-04-21 09:04 | XMS_ITS | Encounter Summary ---
Author Organization [employer] Address [address] [facility] [address] [place] [address] Care Team Providers Care Public Relations Sales Marketing Name Role Phone Neyda Chacko MD Primary Care Provider [phone] Encounter Details Date Type Department Care Team (Late st Contact Info) Description 07/14/2023 Orders Only [facility] MEDICINE 230 [place], [place] [phone] Neyda Chacko MD 230 [place], [place] [phone] Social History Tobacco Use Types Packs/Day Years [...] documented as of this encounter Care Teams Public Relations Sales Marketing Relationship Specialty Start Date End Date Neyda Chacko MD [address] [place] [address] PCP - General Family Medicine 02/22/18 documented as of this encounter
--- OUTSIDE RECORDS SUMMARY | 2024-04-21 09:04 | XMS_ITS | Encounter Summary ---
Author Organization [employer] [facility] Address [address] [facility] 7t [place] [address] Care Team Providers Care Regional Clinical Research Associate Name Role Phone Neyda Chacko MD Primary Care Provider [phone] Reason for Visit * Reason Onset Date Comments Med Refill 09/03/2022 Encounter Details Date Type Department Care Team (Late st Contact Info) Description 09/03/2022 Telephone [facility] MEDICINE 230 [place], [place] [phone] Neyda Chacko MD 230 [place], [place] [phone] Med Refill Social History Tobacco Use Types [...] documented as of this encounter Care Teams Regional Clinical Research Associate Relationship Specialty Start Date End Date Neyda Chacko MD 230 [place] [address] PCP - General Family Medicine 02/22/18 documented as of this encounter
--- OUTSIDE RECORDS SUMMARY | 2024-04-21 09:04 | XMS_ITS | Encounter Summary ---
Author Organization [employer] Address [address] [facility] 7t [place] [address] Care Team Providers Care Nurse Healthcare Manager Name Role Phone Neyda Chacko MD Primary Care Provider [phone] Reason for Visit * Reason Onset Date Comments Medication Question 04/03/2024 Encounter Details Date Type Department Care Team ([facility] st Contact Info) Description 04/03/2024 Telephone [facility] MEDICINE [address] [place] [address] Morena Mclaughlin RN Medication Question Social History [...] PM EST Pt and daughter presented to front desk team member for green team. Explained [...] advised daughter to bring pt's medboxes to [facility] pharmacy for assistance. Called med[facility], spoke with Jazmin who stated she will put note on file regarding meds. * Telephone Encounter - Morena Mclaughlin RN - 04/04/2024 9:08 AM EST Telephone call to pt, spoke with daughter, not on active HIPAA form, requested callback from pt. Pt's daughter upset on the phone, repeated previous message. Pt to call back [facility]. * Telephone Encounter - Morena Mclaughlin RN [...] documented as of this encounter Care Teams Nurse Healthcare Manager Relationship Specialty Start Date End Date Neyda Chacko MD [address] [place] [phone] PCP - General Family Medicine 02/22/18 documented as of this encounter
--- OUTSIDE RECORDS SUMMARY | 2024-04-21 09:04 | XMS_ITS | Encounter Summary ---
Author Organization [employer] Address [address] [facility] 7t [place] [address] Care Team Providers Care Floor Trader Name Role Phone Neyda Chacko MD Primary Care Provider [phone] Encounter Details Date Type Department Care Team (Late st Contact Info) Description 09/09/2023 Orders Only [facility] MEDICINE [address] [place], [place] [phone] Neyda Chacko MD [address] [place], [place] [phone] Essential hypertension (Primary Dx); Type 2 diabetes mellitus with hyperglycemia, with long-term current use of insulin ([facility]); Dyslipidemia; Weight loss Social History Tobacco Use [...] with long-term current use of insulin ([facility]) TSH W/REFLEX TO FT4 Routine 12/15/2023 1 1:00 AM EDT Weight loss LIPID PANEL WITH REFLEX TO DIRECT LDL Routine 12/15/2023 11:00 AM EDT Type 2 diabetes mellitus with hyperglycemia, with long-term current use of insulin ([facility]) Dyslipidemia ALBUMIN, RANDOM URINE W/CREATININE Routine 12/15/2023 11:00 AM EDT Type 2 diabetes mellitus with hyperglycemia, with long-term current use of insulin ([facility]) CBC WITH AUTO DIFFERENTIAL Routine 12/15/2023 11:00 AM EDT Weight loss COMPREHENSIVE METABOLIC PANEL Routine 12/15/2023 11:00 AM EDT Essential hypertension documented in this encounter Results * (ABNORMAL) CBC auto differential (12/15/2023 11:00 AM EDT) White Blood Count 2.5(L) 4.8 - 10.8 X10*3/uL [facility] Red Blood Count 4.42 4.20 - 5.50 X10*6/uL [facility] Hemoglobin 12.7 12.0 - 16.0 g/dl [facility] Hematocrit 38.9 37.0 - 47.0 % [facility] Mean Corpuscular Volume 88.0 80.0 - 98.0 fL [facility] Mean Corpuscular Hemoglobin 28.7 27.0 - 33.0 pg [facility] Mean Corpuscular HGB Conc 32.6 31.0 - 35.0 g/dl [facility] Red Cell Distribution Width 12.0 11.0 - 16.0 % [facility] Platelet Count 180 160 - 400 X10*3/uL [facility] Mean Platelet Volume 9.8 9.4 - 12.3 fL [facility] Neutrophils Percent Auto 36.6(L) 45 - 73 % [facility] Imm Gran Pct Auto 0.4 0.0 - 0.4 % [facility] Lymphocytes Percent Auto 49.8(H) 20 - 40 % [facility] Monocytes Percent Auto 8.8 2 - 11 % [facility] Eosinophils Percent Auto 3.6 0 - 4 % [facility] Basophils Percent Auto 0.8 0 - 2 % [facility] NRBC Pct Auto 0.0 0.0 - 0.2 /100WBC [facility] Neutrophils Absolute Auto 0.9(L) 2.0 - 8.3 x10*3/uL [facility] Imm Gran Abs Auto 0.01 0.00 - 0.03 X10*3/uL [facility] Lymphocytes Absolute Auto 1.3 1.2 - 4.9 X10*3/uL [facility] Monocytes Absolute Auto 0.2 0.1 - 1.2 X10*3/uL [facility] Eosinophils Absolute Auto 0.1 0.0 - 0.4 X10*3/uL [facility] Basophils Absolute Auto 0.0 0.0 - 0.2 X10*3/uL [facility] NRBC Abs Auto 0.000 0.0 - 0.012 X10*3/uL [facility] Blood Venous blood specimen / Unknown 12/15/2023 11:00 AM EDT 12/15/2023 1:24 PM EDT Neyda Chacko MD LAB BLOOD ORDERABLES Edited Resu lt - Final Performing Organization Address City/[facility] Co de Phone Number [facility] [address] [place] [phone] * TSH with Reflex to Free T4 (12/15/2023 11:00 AM EDT) Pathologist [facility] TSH reflex Free T4 2.91 0.32 - 4.0 uIU/mL [facility] Blood 12/15/2023 11:0 0 AM EDT 12/15/2023 1:24 PM EDT Neyda Chacko MD LAB BLOOD ORDERABLES Final Resul t Performing Organization Address [facility] de Phone Number [facility] [address] [place] [phone] * (ABNORMAL) Comprehensive Metabolic Panel (12/15/2023 11:00 AM EDT) Sodium 142 135 - 145 mmol/L [facility] Potassium 4.0 3.3 - 5.1 mmol/L [facility] Chloride 107 96 - 108 mmol/L [facility] Carbon Dioxide 30(H) 22 - 29 mmol/L [facility] Anion Gap 9(L) 12 - 20 [facility] Urea Nitrogen (BUN) 18(H) 9 - 16 mg/dL [facility] Creatinine, Serum 0.68 0.5 - 1.4 mg/dL [facility] Estimated Glomerular Filt Rate >60 [facility] Comment:NOTE: For -Am erican individuals, multiply the result by 1.210.Chronic Kidney Disease: Estimated GFR < 60 mL/min/1.36z3Nehdkk Kidney Disease: Estimated GFR < 15 mL/min/1.73m2 Glucose 161(H) 60 - 115 mg/dL [facility] Calcium 9.5 8.4 - 10.2 mg/dL [facility] Bilirubin, Total 0.2 0.0 - 1.0 mg/dL [facility] Aspartate Amino Transferase 34(H) 5 - 31 U/L [facility] Alanine Aminotransferase 49(H) 0 - 31 U/L [facility] Total Protein 6.9 6.5 - 8.0 g/dL [facility] Albumin Level 3.9 3.5 - 5.0 g/dL [facility] Alkaline Phosphatase 59 39 - 117 U/L [facility] Blood Venous blood specimen / Unknown 12/15/2023 11:00 AM EDT 12/15/2023 1:24 PM EDT Neyda Chacko MD LAB BLOOD ORDERABLES Final Resul t Performing Organization Address City/[facility] de Phone Number [facility] [address] [place] [address] [phone] * Albumin, Random Urine W/Creatinine (12/15/2023 11:00 AM EDT) Creatinine, Urine 75.29 mg/dL [facility] Microalbumin Urine 21.0 mg/L [facility] Microalbum Creatinine Ratio Ur 27.8 <30 ug/mg cr [facility] Comment:Albumin/Creatinine R atio Reference Ranges: Normal: < 30 ug/mg creatinine Microalbuminuria: 30 - 300 ug/mg creatinineClinical Albuminuria: > 300 ug/mg creatinine Urine 12/15/2023 11:0 0 AM EDT 12/15/2023 1:12 PM EDT us Neyda Chacko MD LAB URINE ORDERABLES Final Resul t Performing Organization Address City/[facility] Co de Phone Number [facility] [address] [place] [phone] * Lipid Panel with Reflex to Direct LDL (12/15/2023 11:00 AM EDT) Triglycerides 45 <150 mg/dL [facility] Comment:Desirable Triglyceri de: less than 150 mg/dLBorderline High Triglyceride 150-199 mg/dLHigh Triglyceride: 200-499 mg/dLVery High Triglyceride: greater than or equal to 5OO mg/dL Cholesterol 113 <200 mg/dL [facility] Comment:Desirable Cholestero l: less than 200 mg/dLBorderline High Cholesterol: 200-239 mg/dLHigh Cholesterol: greater than 239 mg/dL LDL Cholesterol Calculated 51 <100 mg/dL [facility] Comment:Desirable LDL: less than 100 mg/dLNear Optimal/Above Optimal LDL: 110- 129 mg/dLBorderline High LDL: 130-159 mg/dLHigh LDL: 160-189 mg/dLVery High LDL: greater than or equal to 190 mg/dL HDL Cholesterol 53 >40 mg/dL [facility] Comment:Desirable HDL: great er than 40 mg/dL Note: This HDL assay may give artificially low results in patients with liver disease. Blood 12/15/2023 11:0 0 AM EDT 12/15/2023 1:24 PM EDT us Neyda Chacko MD LAB BLOOD ORDERABLES Final Resul t [facility] [address] [place] [phone] * Vitamin B12 (Cobalamin) and Folate Panel, Serum (12/15/2023 11:00 AM EDT) Vitamin B12 402 200 - 900 pg/mL [facility] Comment:NORMAL 200-900 PG/ML INDETERMINATE 160-199 PG/ML DEFICIENT < 160 PG/ML Folate 12.9 > or = 4.0 ng/mL [facility] Comment:Reference Values:> o r = 4.0 ng/mL< 4.0 ng/mL suggests folate deficiency Methotrexate, aminopterin and folinic acid(leucovorin) are chemotherapeutic agents whose molecularstructures are similar to folate; therefore, the Architectfolate assay cannot be used for patients using these drugs. Blood 12/15/2023 11:0 0 AM EDT 12/15/2023 1:24 PM EDT Neyda Chacko MD LAB BLOOD ORDERABLES Final Resul t [facility] [address] [place] [phone] documented in this encounter Visit Diagnoses Diagnosis Essential hypertension- Primary Unspecified essential hypertension Type 2 diabetes mellitus with hyperglycemia, with long-term current use of insulin ([facility]) Dyslipidemia Other and unspecified hyperlipidemia Weight loss Loss of weight documented in this encounter Additional Health Concerns Assessment Noted Time PHQ-9 Depression Total Score: 7 06/15/19 24 10:57 AM EDT documented as of this encounter Care Teams Floor Trader Relationship Specialty Start Date End Date Neyda Chacko MD [address] [place] [address] PCP - General Family Medicine 02/22/18 documented as of this encounter
--- OUTSIDE RECORDS SUMMARY | 2024-04-21 09:04 | XMS_ITS | Encounter Summary ---
Author Organization [employer] Address [address] [facility] 7t [place] [address] Care Team Providers Care Service Porter Name Role Phone Neyda Chacko MD Primary Care Provider [phone] Reason for Visit * Reason Onset Date Comments Med Refill 10/27/2023 Encounter Details Date Type Department Care Team (Late st Contact Info) Description 10/27/2023 Telephone [facility] MEDICINE [address] [place], [place] [phone] Neyda Chacko MD [address] [place], [place] [phone] Med Refill Social History Tobacco Use Types [...] MG/3ML solution pen-injector To be sent to: [facility] - [place], [place] - [address] [facility] documented in this encounter Plan of Treatment Not on file documented as of this encounter Visit Diagnoses Not on filedocumented in this encounter Additional Health Concerns Assessment Noted Time PHQ-9 Depression Total Score: 7 06/15/19 24 10:57 AM EDT documented as of this encounter Care Teams Service Porter Relationship Specialty Start Date End Date Neyda Chacko MD [address] [place] [address] PCP - General Family Medicine 02/22/18 documented as of this encounter
--- OUTSIDE RECORDS SUMMARY | 2024-04-21 09:04 | XMS_ITS | Clinical Summary ---
Author Organization [employer] Address [address] [facility] [address] [place] [address] Care Team Providers Care Sales Planning Coordinator Name Role Phone Neyda Chacko MD Primary Care Provider [phone] Allergies Active Allergy Reactions Criticality Noted Date Comments Pioglitazone 03/14/2010 Other reaction(s): unspecified Medications Blood Glucose Monitoring Suppl (sMedio Liberty Lite) w/Device kit USE DIRECTED Active busPIRone [...] needed at bedtime. Active Continuous Blood Gluc Coil Connector Repairer (FreeStyle Joelle 2 [place] Tannery) device Use as directed 1 each 1 [...] hyperglycemia, with long-term current use of insulin (CMS/[facility]) USE UP TO FIVE TIMES DAILY TO TEST BLOOD SUGAR 100 each Active FREESTYLE LITE test stripIndication s:Type 2 diabetes mellitus with hyperglycemia, with long-term current use of insulin (CMS/HCC) USE TO TEST 5 TIMES DAILY 100 each Active glucose blood (FreeStyle Precision Augustus Test) test strip Use to test blood sugar up to 5 times daily, as directed 100 each Active Pentips 32G X 4 MM misc USE ONCE DAILY 100 each 024 Active metoprolol tartrate (Lopressor) 50 MG [...] EVERY MORNING 180 tablet 3 025 Active Insulin Syringe-Needle U-100 (BD Veo Insulin Syringe U/F) 31G X 15/64 0.5 ML miscIndications :Type 2 diabetes mellitus with hyperglycemia, with long-term current use of insulin (CMS/HCC) USE THREE TO FOUR TIMES DAILY WITH humalog 120 each 11 025 Active Ozempic, 2 MG/DOSE, 8 MG/3ML solution pen-injectorInd ications:Type 2 diabetes mellitus with hyperglycemia, with long-term current use of insulin (CMS/HCC) Inject 2 MG SUBCUTANEOUSLY EVERY 7 DAYS IN THE ABDOMEN, THIGHS OR UPPER ARM. ROTATE INJECTION SITES. 3 mL 1 025 Active cilostazol (Pletal) 50 MG tabletIndicatio ns:Peripheral arterial occlusive disease (CMS/HCC) TAKE 1 TABLET BY MOUTH TWICE DAILY IN THE MORNING AND IN THE EVENING 30 MINUTOS ANTES O 2 HORAS DESPUES DEL DESAYUNO Y LA SHANTHI 60 tablet 5 025 Active cilostazol (Pletal) 50 MG tabletIndicatio ns:Peripheral arterial occlusive disease (CMS/HCC) TAKE 1 TABLET BY MOUTH TWICE DAILY IN THE MORNING AND IN THE EVENING 30 minutos antes o 2 horas despues del desayuno y la shanthi 60 tablet 5 024 2024 Discontinued Semaglutide, 2 MG/DOSE, (Ozempic, 2 MG/DOSE,) 8 MG/3ML solution pen-injectorInd ications:Type 2 diabetes mellitus with hyperglycemia, with long-term current use of insulin (CMS/HCC) Inject 0.75 mL (2 mg) under the skin 1 (one) time per week. IN THE ABDOMEN, THIGHS OR UPPER ARM. ROTATE INJECTION SITES. 3 mL 1 025 2024 Discontinued Active Problems Problem Noted Date [...] elastography - FIB4 index 1.51 - GI: [facility] - continue working on [...] -on GLP-1 agonist for DM -followed by [facility] GI, last seen in June 2023 -continue metoclopramide 10 mg tid, with caution due to its side effect Assessment & Plan (05/24/2022 3:57 PM EDT): -on GLP-1 agonist for DM -seen by GI on 03/19/22, restarted on metoclopramide -continue metoclopramide 10 mg tid Peripheral arterial occlusive disease 08/13/2016 Assessment & Plan (04/04/2024 11:42 AM EST): -Followed by [facility] provider -most recent PAWAN doppler on 08/13/21, moderate stenosis in b/l SFA and popliteal arteries -continue working on risk factor management -pt has been on cilostazol since 2017 - Ordered VASC US Lower Extremity Venous Insufficiency Bilateral - Ordered Vascular US lower extremity arterial duplex bilateral with VEENA Assessment & Plan (06/15/2023 11:00 AM EDT): -Followed by [facility] provider -most recent PAWAN doppler on 08/13/21, moderate stenosis in b/l SFA and popliteal arteries -continue working on risk factor management -pt has been on cilostazol since 2017 Assessment & Plan (10/19/2022 6:00 AM EDT): -Followed by [facility] provider -most recent PAWAN doppler on 08/13/21, moderate stenosis in b/l SFA and popliteal arteries -continue working on risk factor management -pt has been on cilostazol since 2017 Assessment & Plan (05/24/2022 3:54 PM EDT): -Followed by [facility] provider -most recent PAWAN doppler on 08/13/21, moderate stenosis in b/l SFA and popliteal arteries -continue working on risk factor management -pt has been on cilostazol since 2017 Assessment & Plan (03/15/2022 5:49 PM EST): -Followed by [facility] provider -most recent PAWAN doppler on 08/13/21, moderate stenosis in b/l SFA and popliteal arteries -continue working on risk factor management -pt has been on cilostazol since 2017 Hemorrhoids 07/01/2015 Chronic recurrent major depressive disorder 02/23 Assessment & Plan (06/15/2023 11:01 AM EDT): [facility] provider: Olayinka Joiner Current medications: venlafaxine; buspirone; hydroxyzine Continue following recommendation by [facility] providers Patient lost her in Jan 2020 due to COVID and has been grieving. Patient is currently with her family and seems to have good support. Continue current BHS. Assessment & Plan (10/19/2022 6:03 AM EDT): [facility] provider: Olayinka Cortez Counseling Current medications: venlafaxine; buspirone; hydroxyzine Continue following recommendation by [facility] providers Patient lost her in Jan 2020 due to COVID and has been grieving. Patient is currently with her family and seems to have good support. Continue current BHS. Assessment & Plan (05/24/2022 4:01 PM EDT): [facility] provider: Olayinka Joiner Current medications: venlafaxine; buspirone; hydroxyzine Continue following recommendation by [facility] providers Patient lost her in Jan 2020 due to COVID and has been grieving. Patient is currently with her family and seems to have good support. Continue current BHS. Assessment & Plan (03/15/2022 5:50 PM EST): [facility] provider: Olayinka Cortez Counseling Current medications: venlafaxine; buspirone; hydroxyzine Continue following recommendation by [facility] providers Patient lost her in Jan [...] BB dose in May 2023. -Follow[facility] by [facility], last seen on 09/17/22 -Continue working on [...] BB dose in May 2023. -Followed by [facility], last seen on 09/17/22 -Continue working on [...] BB dose in May 2023. -Followed by [facility], last seen on 09/17/22 -Continue working on [...] <130/80 per ACC/AHA -BP slightly low. Her liner man has suggested to taper down her diuretics since she had GSV ablation. -Followed by [facility], last seen on 09/17/22 -Continue current lifestyle [...] per ACC/AHA -BP within acceptable range. Her liner man has suggested to taper down her diuretics since she had GSV ablation. -Followed by [facility], last seen on 09/17/22 -Continue [...] per ACC/AHA -BP within acceptable range. Her liner man has suggested to taper down her diuretics since she had GSV ablation. -Followed by [facility], last seen on 12/10/21 -Continue current lifestyle [...] per ACC/AHA -BP within acceptable range. Her liner man has suggested to taper down her diuretics since she had GSV ablation. -Followed by [facility], last seen on 12/10/21 -Continue current lifestyle [...] from 7.9% on 12/21/23 -Previously following with [facility] endocrinology, discharged in May 2023 due to stability -Continue Tresiba 70 units qAM (discrepancy from yield clerk's note) -Continue Humalog 10 units before breakfast, [...] -A1C 7.9% on 12/21/23 -Previously following with [facility] endocrinology, discharged in May 2023 due to stability -Continue Tresiba 70 units qAM (discrepancy from yield clerk's note) -Continue Humalog 10 units before breakfast, [...] 7.2% on 06/15/23, improving -Previously following with [facility] endocrinology, discharged in May 2023 due to stability -Continue Tresiba 70 units qAM (discrepancy from yield clerk's note) -Continue Humalog 10 units before breakfast, [...] PM EDT): -A1C 7.2% on 06/15/23, improving -Acute Coordinator: [facility], last seen on Sep 2022 -Continue Tresiba 70 units qAM (discrepancy from yield clerk's note) -Continue Humalog 10 units before breakfast, [...] yet with hypoglycemia. 8.6% in Feb 2022 -Acute Coordinator: [facility], last seen on Sep 2022 -Continue Tresiba 70 units qAM (discrepancy from yield clerk's note) -Continue Humalog 10 units before breakfast, [...] PM EDT): -A1C 8.6% today 03/11/22, improving -Acute Coordinator: [facility], last seen on 02/13/22 -Continue Tresiba 70 units qAM (discrepancy from yield clerk's note) -Continue Humalog 8 units before breakfast, [...] PM EST): -A1C 8.6% today 03/11/22, improving -Acute Coordinator: [facility], last seen on 02/13/22 -Continue Tresiba 70 units qAM (discrepancy from yield clerk's note) -Continue Humalog 8 units before breakfast, [...] Encounters Date Type Department Care Team Description 04/15/2024 Refill [facility] [address] [place] [id number] Neyda Chacko MD Peripheral arterial occlusive disease (CMS/HCC) 04/13/2024 Refill [facility] [address] [place] [address] Neyda Chacko MD Type 2 diabetes mellitus with hyperglycemia, with long-term current use of insulin (CMS/HCC) 04/12/2024 Orders Only [facility] External Provider, [facility] 04/03/2024 Telephone [facility] [address] [place] [address] Morena Mclaughlin RN Medication Question 03/30/2024 11:00 AM EST Office Visit [facility] [address] [place] [address] Neyda Chacko MD Type 2 diabetes mellitus with hyperglycemia, with long-term current use of insulin (CMS/[facility]) (Primary Dx); Essential hypertension; Mass of axillary tail of right breast; Transaminitis; Dyslipidemia; Metabolic dysfunction-associate d steatotic liver disease (MASLD); Peripheral venous insufficiency; Peripheral arterial occlusive disease (CMS/[facility]); Weight loss; Dietary counseling; Exercise counseling; Overweight 03/30/2024 Travel 03/28/2024 Telephone [facility] [address] [place] [address] Mariel Aragon MA chart prep 03/19/2024 Refill [facility] [address] [place] [address] Neyda Chacko MD Type 2 diabetes mellitus with hyperglycemia, with long-term current use of insulin ([facility]/HCC) 02/25/2024 Refill [facility] [address] [place] [address] Neyda Chacko MD Iron deficiency anemia, unspecified iron deficiency anemia type; Type 2 diabetes mellitus with hyperglycemia, with long-term current use of insulin (CMS/HCC) 02/24/2024 Refill [facility] [address] [place] [address] Rosalia Ag DO Type 2 diabetes mellitus with hyperglycemia, with long-term current use of insulin (CMS/HCC) 02/23/2024 Refill [facility] [address] [place] [address] Neyda Chacko MD Peripheral arterial occlusive disease ([facility]) 02/10/2024 Refill [facility] [address] [place] [address] Sabina Clarke ANP Chronic low back pain, unspecified back pain laterality, unspecified whether sciatica present 01/27/2024 Refill [facility] [address] [place] [address] Neyda Chacko MD Vitamin D deficiency; Type 2 diabetes mellitus with hyperglycemia, with long-term current use of insulin ([facility]) from Last 3 Months Immunizations Name Administration [...] is your housing situation today? I have deandrelindsay gardiner 06/15/[address] you [...] 12/26/2023 12/25/2022 Depression Screening 06/14/2024 06/15/2023, 06/15/19 SDOH Screening 06/14/2024 06/15/2023 Diabetes: Hemoglobin A1C [...] EOSIN STAIN Routine 04/12/2024 10:44 AM EST US BREAST NDL CORE BIOPSY RT Routine 04/12/2024 10:00 AM EST POCT GLYCOSYLATED HEMOGLOBIN (HGB A1C) Routine 03/30/2024 11:51 AM EST Type 2 diabetes mellitus with hyperglycemia, with long-term current use of insulin (CMS/HCC) POCT GLUCOSE Routine 03/30/2024 11:35 AM EST Type 2 diabetes mellitus with hyperglycemia, with long-term current use of insulin (CMS/HCC) BI US BREAST LIMITED RIGHT Routine 03/15/2024 11:30 AM EST BI MAMMOGRAM DIAGNOSTIC TOMOSYNTHESIS BILATERAL Routine 03/15/2024 11:15 AM EST Breast pain, right ALBUMIN, RANDOM URINE W/CREATININE Routine 12/15/2023 11:00 AM EDT Type 2 diabetes mellitus with hyperglycemia, with long-term current use of insulin ([facility]) LIPID PANEL WITH REFLEX TO DIRECT LDL Routine 12/15/2023 11:00 AM EDT Type 2 diabetes mellitus with hyperglycemia, with long-term current use of insulin ([facility]) Dyslipidemia DIABETES EYE EXAM Routine [...] Recently Relevant to Health Maintenance Results * Hematoxylin and Eosin Stain (04/12/2024 10:44 AM EST) 04/12/2024 10:4 4 AM EST 04/12/2024 11:16 AM EST [facility] - 04/13/2024 4:09 PM EST ----- ------- Name: Jaimee Guzman I ? Age/Sex: 64/F ? : 1960 Unit#: [id number] ?? Attend Dr: Walter Moon MD ?Re04/12/24 ?Status: DEP REF ? Location: HO.MAMMO ?Disch: ? ----- ------- SPEC : [id number] ?RECD: 04/12/24-1115 ? STATUS: ??SOUT ? REQ NUM: [id number] ? HUMBERTO: 04/12/24 ? SUBM DR: Nereyda [...] Copies To: ?? Walter Moon MD ?? [facility] General Surgeons ?? [address] ?? [place] [address] ?? [phone] ?? Neyda Chacko MD ?? [facility] ?? [address] ?? [place] [address] ?? [phone] ? CONTINUED ON NEXT PAGE ----- ------- Name: Jaimee Guzman I ? Age/Sex: 64/F ? : 1960 Unit#: [id number] ?? Attend Dr: Walter Moon MD ?Re04/12/24 ?Status: DEP REF ? Location: HO.MAMMO ?Disch: ? ----- ------- SPEC : [id number] ?RECD: 04/12/24-1116 ? STATUS: ??SOUT ? REQ NUM: [id number] ? HUMBERTO: 04/12/24-1044 ? SUBM DR: Nereyda Carvajal DO ? ENTERED: ??04/12/24-4 ?SP TYPE: Surgical ? OTHR DR: Walter Moon MD ?Neyda Chacko MD ORDERED: ??HE Stain/2, Gross Micro L4 ? COMMENTS: As per the specimen requisition slip the specimen is ?collected at 1044 and placed in formalin at 1052. Copies To: ??(Continued) ?? Nereyda Carvajal DO ?? [address] [facility] ?? [place] [address] ?? [phone] ----- ------- Signed (signature on file) Yash Moreno MD 04/13/24 2649 ? ----- ------- ? END OF REPORT ? us Generic External Data Provider LAB BLOOD ORDERAB LES Final Result Performing Organization Address [facility]/State/ZIP Co de Phone Number [facility] [address] [facility] [place] [address] [phone] * US BREAST NDL CORE BIOPSY RT (04/12/2024 10:00 AM EST) Anatomical Region Laterality Modality Abdomen Ultrasound 04/12/2024 10:0 0 AM EST Narrative 04/12/2024 12:13 PM EST ? [place] [facility] ? [address] ?[place] [address] ? Ultrasound Report ? Signed with Addenda ? Patient: Guzman,Jaimee I ?MR#: [id number] ?? 2030 ? : 1960 ?Acct:[id number] ? Age/Sex: 64 / F ?ADM Date: 04/12/24 ? Loc: HO.MAMMO ? Attending Dr: Walter Moon MD ? Ordering Physician: Walter Moon MD ?? Date of Service: 04/12/24 ?? Procedure(s): US breast ndl core biopsy RT ?? Accession Number(s): [id number] ? cc: Walter Moon MD; Neyda Chacko MD; Ry Curtis MD ?ADDENDUM ? ADDENDUM #1 ? Right axillary subcutaneous mass: Fragments of benign squamous ?? epithelium and keratinaceous material, consistent with epidermal ?? inclusion cyst: No malignancy identified. Benign and concordant. ?? Recommend clinical follow-up. ? Electronically signed by: ??Nereyda Carvajal DO ??04/19/2024 10:05 AM EST ?? RP ? Addendum Dictated By: ?Nereyda Carvajal, DO [...] instructions. Final pathology results are pending. ? US/ breast ndl core biopsy RT ?? IMPRESSION: ?? 1. Uncomplicated sonographically-guided core biopsy of the right axilla ?? 2. Final pathology results are pending. A separate report with final ?? recommendations will be issued once these results are made available. ? Electronically signed by: ??Nereyda Carvajal DO ??04/12/2024 12:10 PM EST ? Dictated By: ?Nereyda Carvajal DO ? Signed By: ?<Electronically signed by Nereyda Carvajal, DO in OV> ? 04/12/24 1210 ? DD/ 1000 ? TD/TT: 04/12/24 1100 ? Egg Buyer: ? Procedure Note Donalixter, Image - 04/19/2024 [facility] [address] [place] [address] Ultrasound Report Signed with Esa Patient: Jaimee Guzman [facility]#: [id number] 2030 : 9Acct:[id number] Age/Sex: 64 / FADM Date: 04/12/24 Loc: HO.MAMMO Attending Dr: Walter Moon MD Ordering Physician: Walter Moon MD Date of Service: 04/12/24 Procedure(s): US breast ndl core biopsy RT Accession Number(s): [id number] cc: Walter Moon MD; Neyda Chacko MD; [...] by: Nereyda Carvajal DO 04/12/2024 12:10 PM EST Dictated By: Nereyda Carvajal DO Signed By: <Electronically signed by Nereyda Carvajal DO in OV> 04/12/24 1210 DD/ 1000 TD/TT: 04/12/24 1100 Egg Buyer: [facility] External Provider IMG US PROCEDURES Edited Result - Final * (ABNORMAL) POCT glycosylated hemoglobin (Hgb A1c) (03/30/2024 11:51 AM EST) Hemoglobin A1C 7.7(A) 4.0 - 6.0 % QC Media Lot # [id number] Lot# Expiration Date ,026 Blood Capillary blood specimen / Unknown 03/30/2024 11:51 AM EST Neyda Chacko MD POINT OF CARE TEST ENTER/EDIT OR DERABLES Final Result * POCT glucose manually resulted (03/30/2024 11:35 AM EST) Glucose Blood, POC 192 60 - 200 mg/dL QC Media Lot # [id number] Lot# Expiration Date 6172,025 Blood Capillary blood specimen / Unknown 03/30/2024 11:35 AM EST Neyda Chacko MD POINT OF CARE TEST ENTER/EDIT OR DERABLES Final Result * BI US Breast Limited Right (03/15/2024 11:30 AM EST) Anatomical Region Laterality Modality Breast Right Ultrasound 03/15/2024 11:3 0 AM EST Narrative 03/15/2024 12:29 PM EST ? [facility] ? [address] ?[place] [address] ? Ultrasound Report ? Signed ? Patient: Jaimee Guzman I ?MR#: [id number] ?? 2030 ? : 1960 ?Acct:[id number] ? Age/Sex: 63 / F ?ADM Date: 03/15/24 ? Loc: HO.MAMMO ? Attending Dr: Neyda Chacko MD ? Ordering Physician: Neyda Chacko MD ?? Date of Service: 03/15/24 ?? Procedure(s): US breast RT limited mamm only ?? Accession Number(s): [id number] ? cc: Neyda Chacko MD ? EXAMINATION: [...] DD/ 1130 ? TD/TT: 03/15/24 1158 ? Egg Buyer: ? Procedure Note Supa, Image - 03/15/2024 [facility] [address] [place] [address] Dr. [place], [place] [address] Ultrasound Report Signed Patient: Jaimee Guzman [facility]#: [id number] 2030 : 9Acct:[id number] Age/Sex: 63 / FADM Date: 03/15/24 Loc: RACHEL.MAMMO Attending Dr: Neyda Chacko MD Ordering Physician: Neyda Chacko MD Date of Service: 03/15/24 Procedure(s): US breast RT limited mamm only Accession Number(s): [id number] cc: Neyda Chacko MD EXAMINATION: MM DIAGNOSTIC [...] 03/15/24 1226 DD/ 1130 TD/TT: 03/15/24 1158 Egg Buyer: us Neyda Chacko MD IMG US PROCEDURES Final Result * BI Mammogram Diagnostic Tomosynthesis Bilateral (03/15/2024 11:15 AM EST) Anatomical Region Laterality Modality Breast Bilateral Mammography 03/15/2024 11:1 5 AM EST Narrative 03/15/2024 12:29 PM EST ? [facility] ? [address] ?[place], [place] [address] ? Mammography Report ? Signed ? Patient: Guzman,Jaimee I ?MR#: [id number] ?? 2030 ? : 1960 ?Acct:[id number] ? Age/Sex: 63 / F ?ADM Date: 03/15/24 ? Loc: HO.MAMMO ? Attending Dr: Neyda Chacko MD ? Ordering Physician: Neyda Chacko MD ?Results: 4Suspicio ?? us Finding ? Date of Service: 03/15/24 ?Follow Up: Biopsy Recommend ?? ed ? Procedure(s): MM tomosynthesis diagnostic BI ?? Accession Number(s): [id number] ? cc: Neyda Chacko MD ? EXAMINATION: [...] ??Nereyda Carvajal DO ??03/15/2024 12:26 PM EST ? Dictated By: ?Nereyda Carvajal DO ? Signed By: ?<Electronically signed by Nereyda Carvajal, DO in OV> ? 03/15/24 1226 ? DD/ 1115 ? TD/TT: 03/15/24 1140 ? Egg Buyer: ? Procedure Note Supa, Image - 03/15/2024 [facility] [address] [place] [address] Dr. [place], [place] [address] Mammography Report Signed Patient: Jaimee Guzman IMR#: [id number] 2030 : 9Acct:[id number] Age/Sex: 63 / FADM Date: 03/15/24 Loc: [facility] Attending Dr: Neyda Chacko MD Ordering Physician: Neyda Chacko MDResults: 4Suspicio us Finding Date of Service: 03/15/24Follow Up: Biopsy Recommend ed Procedure(s): MM tomosynthesis diagnostic BI Accession Number(s): [id number] cc: Neyda Chacko MD EXAMINATION: MM DIAGNOSTIC [...] by: Nereyda Carvajal DO 03/15/2024 12:26 PM [facility] Dictated By: Nereyda Carvajal DO Signed By: <Electronically signed by Nereyda Carvajal DO in OV> 03/15/24 1226 DD/ 1115 TD/TT: 03/15/24 1140 Egg Buyer: us Neyda Chacko MD IMG BI PROCEDURES Final Result * Lipid Panel with Reflex to Direct LDL (12/15/2023 11:00 AM EDT) Triglycerides 45 <150 mg/dL [facility] Comment:Desirable Triglyceri de: less than 150 mg/dLBorderline High Triglyceride 150-199 mg/dLHigh Triglyceride: 200-499 mg/dLVery High Triglyceride: greater than or equal to 5OO mg/dL Cholesterol 113 <200 mg/dL [facility] Comment:Desirable Cholestero l: less than 200 mg/dLBorderline High Cholesterol: 200-239 mg/dLHigh Cholesterol: greater than 239 mg/dL LDL Cholesterol Calculated 51 <100 mg/dL [facility] Comment:Desirable LDL: less than 100 mg/dLNear Optimal/Above Optimal LDL: 110- 129 mg/dLBorderline High LDL: 130-159 mg/dLHigh LDL: 160-189 mg/dLVery High LDL: greater than or equal to 190 mg/dL HDL Cholesterol 53 >40 mg/dL [facility] Comment:Desirable HDL: great er than 40 mg/dL Note: This HDL assay may give artificially low results in patients with liver disease. Blood 12/15/2023 11:0 0 AM EDT 12/15/2023 1:24 PM EDT us Neyda Chacko MD LAB BLOOD ORDERABLES Final Resul t [facility] [address] [place] [phone] * Albumin, Random Urine W/Creatinine (12/15/2023 11:00 AM EDT) Creatinine, Urine 75.29 mg/dL [facility] Microalbumin Urine 21.0 mg/L [facility] Microalbum Creatinine Ratio Ur 27.8 <30 ug/mg cr [facility] Comment:Albumin/Creatinine R atio Reference Ranges: Normal: < 30 ug/mg creatinine Microalbuminuria: 30 - 300 ug/mg creatinineClinical Albuminuria: > 300 ug/mg creatinine Urine 12/15/2023 11:0 0 AM EDT 12/15/2023 1:12 PM EDT us Neyda Chacko MD LAB URINE ORDERABLES Final Resul t [facility] [address] [place] [address] [phone] * Diabetes Eye Exam (12/25/2022) Eye Exam Normal Normal Historical Provider MD HEALTH MAINTENANCE Final Result * Colonoscopy (08/15/2020) Colonoscopy Normal Normal Historical Provider HEALTH MAINTENANCE Final Result * HPV E6/E7 RFLX LINDSAY 16 18/45 (12/27/2019 1:40 PM EST) HPV mRNA E6/E7 rflx Not Detected Not Detected [facility] Comment: This test was performed using the APTIMA HPV Assay ([employer] This assay detects E6/E7 viral messenger RNA (mRNA) from 14 high-risk HPV types (16,18,31,33,35,39,45,51,52,56,58,59,66,68). The analytical performance characteristics of this assay have been determined by [facility]. The modifications have not been cleared or approved by the FDA. This assay has been validated pursuant to the CLIA regulations and is used for clinical purposes. THIS TEST WAS PERFORMED AT: [facility] [address] [place], [place] ??[phone] RENE MULLINS MD 12/27/2019 1:40 PM EST Ry Curtis MD HISTORICAL/NON ORDERABLE LABS Fi nal Result [facility] [address] from Last 3 Months or Most Recently Relevant to Health Maintenance Insurance [facility] - [facility] [address] [place] [address] [address] [place] [address] [address] [place] [address] Care Teams Sales Planning Coordinator Relationship Specialty Start Date End Date Neyda Chacko MD [address] [place] [address] PCP - General Family Medicine 02/22/18
--- OUTSIDE RECORDS SUMMARY | 2024-04-21 09:04 | XMS_ITS | Encounter Summary ---
Author Organization [employer] Address 75 [facility] 7t [place] [address] Care Team Providers Care Inseam Trimmer Name Role Phone Neyda Chacko MD Primary Care Provider [phone] Reason for Referral * Imaging (Routine) - Authorized Specialty Diagnoses / Procedures Referred By Contac t Referred To Contact Cardiology Diagnoses Peripheral venous insufficiency Peripheral arterial occlusive disease (CMS/HCC) Procedures Vascular US lower extremity arterial duplex bilateral with VEENA Neyda Chacko MD [address] [place] [address] Phone: tel: fax: [address] Phone: tel: fax: Referral ID Status Reason Start Date Expiration Date Visits Requested Visits Authorized [id number] Authorized Perform Procedure 04/01/2024 04/01/2025 1 1 * Imaging (Routine) - Authorized Specialty Diagnoses / Procedures Referred By Contac t Referred To Contact Cardiology Diagnoses Peripheral venous insufficiency Peripheral arterial occlusive disease (CMS/HCC) Procedures VASC US Lower Extremity Venous Insufficiency Bilateral Neyda Chacko MD [address] [place] [address] Phone: tel: fax: [address] Phone: tel: fax: Referral ID Status Reason Start Date Expiration Date Visits Requested Visits Authorized [id number] Authorized Perform Procedure 04/01/2024 04/01/2025 1 1 * Imaging (Routine) - Authorized Specialty Diagnoses / Procedures Referred By Contac t Referred To Contact Radiology Diagnoses Metabolic dysfunction-associated steatotic liver disease (MASLD) Procedures US Abdomen Comp w elastography Neyda Chacko MD [address] [place] [address] Phone: tel: fax: [address] Phone: tel: fax: Referral ID Status Reason Start Date Expiration Date V isits Requested Visits Authorized [id number] Authorized 04/01/2024 04/01/2025 1 1 Encounter Details Date Type Department Care Team (Late st Contact Info) Description 03/30/2024 11:00 AM EST Office Visit [facility] [address] [place] [phone] Neyda Chacko MD [address] [place] [address] Type 2 diabetes mellitus with hyperglycemia, with [...] - 03/30/2024 11:00 AM EST Subjective Jaimee uGzman is a 64 y.o. female who has diabetes mellitus type 2, hypertension, dyslipidemia, PAD, and anxiety/depression, and patient presents for follow up of chronic conditions. Background: Our last encounter was 12/21/2023. Discussed about weight loss, right axillary pain and mass, her finger joint pain, wrist pain, and onychomycosis. Referred to rn hospital. Ordered diagnostic mammography. Interval history: 01/25/24 EMG/NCT showed [id number] bilateral median neuropathy and mild left ulnar [...] 08/2024 she was an appointment with her Party Plan Sales Unit Advisor. She does not tolerate the compression socks, [...] MCV 85.9 12/17/2023 The ASCVD Risk score ([place] DK, et al., 2019) failed to calculate [...] from 7.9% on 12/21/23 -Previously following with [facility] [place], discharged in May 2023 due to stability -Continue Tresiba 70 units qAM (discrepancy from sheet manufacturing supervisor's note) -Continue Humalog 10 units before breakfast, [...] elastography - FIB4 index 1.51 - GI: [facility] - continue working on [...] DOES NOT RESPOND. 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) -Continue Humalog 10 units before breakfast, [...] Peripheral arterial occlusive disease (CMS/HCC) -Followed by [facility] provider -most recent PAWAN doppler on 08/13/21, [...] elastography - FIB4 index 1.51 - GI: [facility] - continue working on [...] / Unknown 03/30/2024 11:35 AM EST Result [facility] Neyda Chacko MD POINT OF [...] documented as of this encounter Care Teams Inseam Trimmer Relationship Specialty Start Date End Date Neyda Chacko MD [address] [place] [address] PCP - General Family Medicine 02/22/18 documented as of this encounter
== END 2024-04-21 08:58 | disposition home or self-care (01) ==
PROVIDERS: PCP Family Medicine; Visit Provider Surgery
DX: R92.8 Other abnormal and inconclusive findings on diagnostic imaging of breast (principal)
CPT/HCPCS: 99213

== ENCOUNTER → 2024-04-21 08:45 | Outpatient (BNVA) | payer OTHER, SELFPAY | PROVIDERS: PCP Family Medicine; Visit Provider Surgery | DX: R92.8 Other abnormal and inconclusive findings on diagnostic imaging of breast (principal) | CPT/HCPCS: 99212 ==

== ENCOUNTER 2024-05-03 09:40 | Outpatient (REF) | payer OTHER, SELFPAY ==
--- NOTE | ~2024-05-03 | US_ITS ---
EXAMINATION: US ABDOMEN COMPLETE WITH LIVER ELASTOGRAPHY HISTORY: MASLD TECHNIQUE: Real-time grayscale ultrasound imaging of the abdomen was performed and images were reviewed. COMPARISON: Comparison is made with the prior examination dated 04/15/2020. FINDINGS: Liver: The right lobe of the liver measures 15.5 cm in size. The left lobe of the liver measures 7.2 cm in size. The liver demonstrates normal homogeneous echotexture. No focal mass or intrahepatic biliary ductal dilatation is identified. There is normal hepatopedal flow in the portal vein. Ultrasound elastography of the liver was performed with 10 separate measurements of the liver parenchyma with the patient in the supine position. Measurements were obtained approximately 2 cm below Jabari's capsule and perpendicular to the capsule. Images are of satisfactory quality. The median shear wave velocity is 2.08 m/s. The interquartile range/median (IQR/median) is 0.08. Gallbladder and biliary tree: There is a 4 mm gallbladder polyp. The gallbladder is otherwise unremarkable, without evidence of calculi, wall thickening, or pericholecystic fluid. There is no sonographic Nguyen sign. The common bile duct is normal in caliber measuring 4 mm. Kidneys: The right kidney measures 10.9 cm in length. The left kidney measures 11.0 cm in length. The kidneys are unremarkable, without evidence of masses, hydronephrosis, or calculi. Pancreas: The pancreas is obscured by bowel gas. Spleen: The spleen is normal in size and contour, measuring 9.2 cm in length. Abdominal aorta and inferior vena cava: The visualized portions of the abdominal aorta and inferior vena cava are normal in caliber. There is no free fluid in the abdomen. US/US abdomen comp w elastography IMPRESSION: 4 mm gallbladder polyp. The pancreas is not visualized. Otherwise unremarkable abdominal ultrasound. The median shear wave velocity in the liver is 2.08 m/s, corresponding to a median liver stiffness of 13.15 kPa. The IQR/median value is 0.08. This is indicative of a quality data set. Findings are indicative of a high elastography value suggestive of compensated advanced chronic liver disease. REFERENCE: Society of Radiologists in Ultrasound Liver Stiffness Thresholds (2020): LIVER STIFFNESS THRESHOLDS: *Shear wave velocity less than 1.3 m/s (Liver Stiffness equal or less than 5 kPa): High probability of being normal. *Shear wave velocity less than 1.7 m/s (Liver Stiffness less than 9 kPa): In the absence of other known clinical signs, rules out compensated advanced chronic liver disease. *Shear wave velocity between 1.7-2.1 m/s (Liver Stiffness 9-13 kPa): Suggestive of compensated advanced chronic liver disease but need further test for confirmation. *Shear wave velocity between 2.1-2.4 m/s (Liver Stiffness 13-17 kPa): Rules in compensated advanced chronic liver disease. *Shear wave velocity greater than 2.4 m/s (Liver Stiffness over 17 kPa): Suggestive of clinically significant portal hypertension. QUALITY OF DATA SET: *IQR/Median value equal or less than 0.15 implies a quality data set. *IQR/Median value over 0.15 implies a poor quality data set. SIGNIFICANT CHANGE FROM PRIOR EXAM: Significant change if liver stiffness measurement is 10% or greater from prior exam. OTHER CONSIDERATIONS: The stage of liver fibrosis may be overestimated in the setting of acute hepatitis, liver inflammation, elevated liver function tests, hepatic vascular congestion, obstructive cholestasis, non-fasting state, and infiltrative diseases such as amyloidosis and lymphoma. In some patients with NAFLD, the liver stiffness thresholds for compensated advanced chronic liver disease may be lower. In causes other than viral hepatitis and NAFLD, liver stiffness thresholds are not well established. Electronically signed by: Samuel Graff MD 05/03/2024 12:20 PM EDT
--- NOTE | ~2024-05-03 | US_ITS ---
EXAMINATION: US LOWER EXTREMITY VENOUS (REFLUX EXAM), BILATERAL CLINICAL INFORMATION: Varices. Prior venous procedure in the right lower extremity. COMPARISON: DVT ultrasound dated April 30, 2013. TECHNIQUE: Color flow triplex imaging and compression Doppler was performed to evaluate both the deep and the superficial systems bilaterally. To evaluate the superficial system, the examination was performed in the upright position. Color-flow Doppler ultrasound and compression ultrasound were utilized. In addition, maneuvers were utilized to demonstrate reflux. FINDINGS: 1. DEEP VENOUS ULTRASOUND OF THE RIGHT LOWER EXTREMITY: Common Femoral Vein: Compressible, normal respiratory variation and augmented flow. Femoral Vein: Compressible, normal color flow and augmentation. Popliteal Vein: Compressible, normal augmentation. Deep Reflux: There is no evidence of reflux in the deep system in either the common femoral vein, superficial femoral or the popliteal vein. There is no evidence of a Pinzon's cyst. 2. SUPERFICIAL ULTRASOUND WITH DOPPLER OF RIGHT LOWER EXTREMITY: GREAT SAPHENOUS VEIN: Saphenofemoral Junction: 0.5 cm; Reflux: 0 ms Proximal Thigh: 0.5 cm; Reflux: 0 ms Mid Thigh: Not seen. Distal Thigh: Not seen. At Knee: 0.1 cm; Reflux: 0 ms Proximal Calf: 0.1 cm; Reflux: 0 ms Mid Calf: 0.2 cm; Reflux: 0 ms Distal Calf: 0.2 cm; Reflux: 0 ms DUPLICATED MEDIAL GREAT SAPHENOUS VEIN: Diameter: None imaged Reflux: NA DUPLICATED LATERAL GREAT SAPHENOUS VEIN: Diameter: 0.2 cm. Reflux: NA SMALL SAPHENOUS VEIN: Saphenopopliteal Junction: 0.2 cm; Reflux: 0 ms Proximal: 0.2 cm; Reflux: 0 ms Distal: 0.2 cm; Reflux: 0 ms VEIN OF GIACOMINI: Size: NA Reflux: NA PERFORATORS: Location: Proximal and mid calf. Accessory saphenous vein, proximal segment. Size: 0.1-0.2 cm. Reflux: NA VARICOSITIES: Location: None imaged. Size: NA Reflux: NA 3. DEEP VENOUS ULTRASOUND OF THE LEFT LOWER EXTREMITY: Common Femoral Vein: Compressible, normal respiratory variation and augmented flow. Femoral Vein: Compressible, normal color flow and augmentation. Popliteal Vein: Compressible, normal augmentation. Deep Reflux: There is no evidence of reflux in the deep system in either the common femoral vein, superficial femoral or the popliteal vein. There is no evidence of a Pinzon's cyst. 4. SUPERFICIAL ULTRASOUND WITH DOPPLER OF LEFT LOWER EXTREMITY: GREAT SAPHENOUS VEIN: Saphenofemoral Junction: 0.6 cm; Reflux: 0 ms Proximal Thigh: 0.3 cm; Reflux: 0 ms Mid Thigh: Not seen. Distal Thigh: Not seen. At Knee: Not seen. Proximal Calf: 0.1 cm; Reflux: 0 ms Mid Calf: 0.1 cm; Reflux: 0 ms Distal Calf: 0.1 cm; Reflux: 0 ms DUPLICATED MEDIAL GREAT SAPHENOUS VEIN: Diameter: None imaged Reflux: NA DUPLICATED LATERAL GREAT SAPHENOUS VEIN: Diameter: None imaged. Reflux: NA SMALL SAPHENOUS VEIN: Saphenopopliteal Junction: 0.6 cm; Reflux: 0 ms Proximal: 0.2 cm; Reflux: 0 ms Distal: 0.1 cm; Reflux: 0 ms VEIN OF GIACOMINI: Size: NA Reflux: NA PERFORATORS: Location: Great saphenous vein mid calf. Size: 0.2 cm. Reflux: NA VARICOSITIES: Location: None Imaged Size: NA Reflux: NA US/US venous duplex LE BI IMPRESSION: Right: No venous insufficiency. Perforators in the proximal and mid calf without reflux. Left: No venous insufficiency. Perforators in the mid calf, great saphenous vein without reflux. Electronically signed by: Bhupendra Pratt MD 05/03/2024 12:24 PM EDT
--- OUTSIDE RECORDS SUMMARY | 2024-05-03 10:38 | XMS_ITS | Encounter Summary ---
Author Organization [employer] Address [address] [facility] [address] 7t [place] [address] Care Team Providers Care Commercial Crabber Name Role Phone Neyda Chacko MD Primary Care Provider [phone] Reason for Visit * Reason Comments Med Refill Encounter Details Date Type Department Care Team (Late st Contact Info) Description 04/13/2024 Refill [facility] [address] [place], [place] [phone] Neyda Chacko MD [address] [place], [place] [phone] Type 2 diabetes mellitus with hyperglycemia, with long-term current use of insulin ([facility]) Social History Tobacco Use Types [...] hyperglycemia, with long-term current use of insulin ([facility]) documented in this encounter Additional Health Concerns Assessment Noted Time PHQ-9 Depression Total Score: 7 06/15/19 24 10:57 AM EDT documented as of this encounter Care Teams Commercial Crabber Relationship Specialty Start Date End Date Neyda Chacko MD [address] [place] [address] PCP - General Family Medicine 02/22/18 documented as of this encounter
--- OUTSIDE RECORDS SUMMARY | 2024-05-03 10:38 | XMS_ITS | Encounter Summary ---
Author Organization [employer] Address 75 [facility] 7t [place] [address] Care Team Providers Care Director Of Retail Name Role Phone Neyda Chacko MD Primary Care Provider [phone] Encounter Details Date Type Department Care Team ([facility] st Contact Info) Description 03/10/2022 Telephone [facility] MEDICINE [address] [place], [place] [phone] Neyda Chacko MD [address] [place], [place] [phone] Social History Tobacco Use Types Packs/Day Years [...] on filedocumented in this encounter Care Teams Director Of Retail Relationship Specialty Start Date End Date Neyda Chacko MD [address] [place] [address] PCP - General Family Medicine 02/22/18 documented as of this encounter
--- OUTSIDE RECORDS SUMMARY | 2024-05-03 10:38 | XMS_ITS | Encounter Summary ---
Author Organization [employer] Address 75 [facility] 7t [place] [address] Care Team Providers Care Coremaker Machine Name Role Phone Neyda Chacko MD Primary Care Provider [phone] Reason for Visit * Reason Comments Med Refill Encounter Details Date Type Department Care Team (Late st Contact Info) Description 04/15/2024 Refill [facility] MEDICINE [address] [place], [place] [phone] Neyda Chacko MD [address] [place], [place] [phone] Peripheral arterial occlusive disease (CMS/HCC) Social History [...] documented as of this encounter Care Teams Coremaker Machine Relationship Specialty Start Date End Date Neyda Chacko MD [address] [place] [address] PCP - General Family Medicine 02/22/18 documented as of this encounter
--- OUTSIDE RECORDS SUMMARY | 2024-05-03 10:38 | XMS_ITS | Encounter Summary ---
Author Organization [employer] Address [address] [facility] [address] 7t [place] [address] Care Team Providers Care Call Center Specialist Name Role Phone Neyda Chacko MD Primary Care Provider Encounter Details Date Type Department Care Team (Late st Contact Info) Description 04/12/2024 Orders Only [facility] External Provider, [facility] Social History Tobacco Use Types Packs/Day Years [...] 4 AM EST 04/12/2024 11:16 AM EST [facility] - 04/13/2024 4:09 PM EST ----- ------- Name: Jaimee Guzman I ? Age/Sex: 64/F ? : 1960 Unit#: [id number] ?? Attend Dr: Walter Moon MD ?Re04/12/24 ?Status: DEP REF ? Location: HO.MAMMO ?Disch: ? ----- ------- SPEC : [id number] ?RECD: 04/12/24-1116 ? STATUS: ??SOUT ? REQ NUM: [id number] ? HUMBERTO: 04/12/24-1043 ? SUBM DR: Nereyda [...] Copies To: ?? Walter Moon MD ?? [facility] ?? [address] ?? [place] [address] ?? [phone] ?? Neyda Chacko MD ?? [facility] ?? [address] [facility] ?? [place] [address] ?? [phone] ? CONTINUED ON NEXT PAGE ----- ------- Name: Jaimee Guzman I ? Age/Sex: 64/F ? : 1960 Unit#: [id number] ?? Attend Dr: Walter Moon MD ?Re04/12/24 ?Status: DEP REF ? Location: HO.MAMMO ?Disch: ? ----- ------- SPEC : [id number] ?RECD: 04/12/24 ? STATUS: ??SOUT ? REQ NUM: [id number] ? HUMBERTO: 04/12/24 ? SUBM DR: Nereyda Carvajal DO ? ENTERED: ??04/12/24 ?SP TYPE: Surgical ? OTHR DR: Walter Moon MD ?Neyda Chacko MD ORDERED: ??HE Stain/2, Gross Micro L4 ? COMMENTS: As per the specimen requisition slip the specimen is ?collected at 1044 and placed in formalin at 1052. Copies To: ??(Continued) ?? Nereyda Carvajal DO ?? [address] [facility] ?? [place] [address] ?? [phone] ----- ------- Signed (signature on file) Yash Moreno MD 04/13/24 5359 ? ----- ------- ? END OF REPORT ? us Generic External Data Provider LAB BLOOD ORDERAB LES Final Result Performing Organization Address City/State/[facility] Co de Phone Number [facility] [address] [facility] [place] [address] [phone] * BREAST NDL CORE BIOPSY RT (04/12/2024 10:00 AM EST) Anatomical Region Laterality Modality Abdomen Ultrasound 04/12/2024 10:0 0 AM EST Narrative 04/12/2024 12:13 PM EST ? [facility] [place] ? [address] ?[place] [address] ? Ultrasound Report ? Signed with Addenda ? Patient: Guzman,Jaimee I ?MR#: [id number] ?? 2030 ? : 1960 ?Acct:[id number] ? Age/Sex: 64 / F ?ADM Date: 02/19/25 ? Loc: HO.MAMMO ? Attending Dr: Walter Moon MD ? Ordering Physician: Walter Moon MD ?? Date of Service: 04/12/24 ?? Procedure(s): US breast ndl core biopsy RT ?? Accession Number(s): [id number] ? cc: Walter Moon MD; Neyda Chacko [...] DD/ 1000 ? TD/TT: 04/12/24 1100 ? Cement Railroad Car Loader: ? Procedure Note Donhardynahomiter, Image - 04/19/2024 [place] [facility] [address] [place], [place] [address] Ultrasound Report Signed with Esa Patient: Jaimee Guzman IMR#: [id number] 2030 : 9Acct:[id number] Age/Sex: 64 / FADM Date: 04/12/24 Loc: HO.MAMMO Attending Dr: Walter Moon MD Ordering Physician: Walter Moon MD Date of Service: 04/12/24 Procedure(s): breast ndl core biopsy RT Accession Number(s): [id number] cc: Walter Moon MD; Neyda Chacko MD; [...] by: Nereyda Carvajal DO 04/12/2024 12:10 PM [facility] Dictated By: Nereyda Carvajal DO Signed By: <Electronically signed by Nereyda Carvajal DO in OV> 04/12/24 1210 DD/ 1000 TD/TT: 04/12/24 1100 [employer]ement Railroad Car Loader: [facility] External Provider IMG US PROCEDURES Edited Result - Final documented in this encounter Visit Diagnoses Not on filedocumented in this encounter Additional Health Concerns Assessment Noted Time PHQ-9 Depression Total Score: 7 06/15/19 24 10:57 AM EDT documented as of this encounter Care Teams Call Center Specialist Relationship Specialty Start Date End Date Neyda Chacko MD [address] [place] [address] PCP - General Family Medicine 02/22/18 documented as of this encounter
--- OUTSIDE RECORDS SUMMARY | 2024-05-03 10:38 | XMS_ITS | Encounter Summary ---
Author Organization [employer] Address 75 [facility] 7t [place] [address] Care Team Providers Care Air Traffic Controller Name Role Phone Neyda Chacko MD Primary Care Provider Reason for Visit * Reason Onset Date Comments Durable Medical Equipment 01/26/2023 Encounter Details Date Type Department Care Team (Late st Contact Info) Description 01/26/2023 Telephone [facility] MEDICINE [address] [place], [place] [phone] Neyda Chacko MD [address] [place], [place] [phone] Durable Medical Equipment Social History Tobacco Use [...] readings would like the patient to use Sonar.me Joelle 2 System documented in this encounter Plan of Treatment Not on file documented as of this encounter Visit Diagnoses Not on filedocumented in this encounter Additional Health Concerns Assessment Noted Time PHQ-9 Depression Total Score: 5 03/12/19 23 10:44 AM EST documented as of this encounter Care Teams Air Traffic Controller Relationship Specialty Start Date End Date Neyda Chacko MD [address] [place] [address] PCP - General Family Medicine 02/22/18 documented as of this encounter
--- OUTSIDE RECORDS SUMMARY | 2024-05-03 10:38 | XMS_ITS | Encounter Summary ---
Author Organization [facility] Address [address] [place] [id number] Care Team Providers Care Police Communications Operator Name Role Phone Physician, Pcp Unknown Primary Care Provider Heena vailable Reason for Visit * Reason Comments Consult NPV-Diabetic foot ca re * Orthopedic (Routine) - Closed Specialty Diagnoses / Procedures Referred By Contact Referred To Contact Podiatry / Orthopaedic Surgery Diagnoses Type 2 diabetes mellitus with hyperglycemia intermediate accountant (current) use of insulin Procedures AMB Referral to Podiatry. Neyda Chacko MD [address] [place] [phone] Phone: tel: fax: Alan Crisostomo DPM [address] [address] Phone: tel: fax: Referral ID Status Reason Start Date Expiration Date V isits Requested Visits Authorized [id number] Closed Consult and Treat 12/27/2023 12/26/2024 1 1 Encounter Details Date Type Department Care Team (Late st Contact Info) Description 04/04/2024 10:00 AM EST Office Visit Orthopedic Surgery - [place] [address] [phone] Alan Crisostomo DPM [address] [address] Metatarsalgia of both feet (Primary Dx); Dermatophytosis [...] daily at night Follow-up in 1 month [id number]: Destruction of Plantar Verrucae: Verbal informed consent [...] AM EDT Office Visit Orthopedic Surgery - [place] [address] [address] Alan Crisostomo DPM [address] [address] documented as of this encounter Visit Diagnoses [...] limb documented in this encounter Care Teams Police Communications Operator Relationship Specialty Start Date End Date Physician, Pcp Unknown PCP - General 03/20/24 documented as of this encounter
--- OUTSIDE RECORDS SUMMARY | 2024-05-03 10:38 | XMS_ITS | Encounter Summary ---
Author Organization [employer] Address 75 [facility] 7t [place] [address] Care Team Providers Care Stranding Machine Operator Helper Name Role Phone Neyda Chacko MD Primary Care Provider [phone] Encounter Details Date Type Department Care Team (Late st Contact Info) Description 03/12/2022 Abstract [facility] MEDICINE [address] [place], [place] [phone] Neyda Chacko MD [address] [place], [place] [phone] Social History Tobacco Use Types Packs/Day Years [...] documented as of this encounter Care Teams Stranding Machine Operator Helper Relationship Specialty Start Date End Date Neyda Chacko MD [address] [place] [address] PCP - General Family Medicine 02/22/18 documented as of this encounter
--- OUTSIDE RECORDS SUMMARY | 2024-05-03 10:38 | XMS_ITS | Encounter Summary ---
Author Organization [employer] Address 75 [facility] 7t [place] [address] Care Team Providers Care Graphics Editor Name Role Phone Neyda Chacko MD Primary Care Provider [phone] Reason for Visit * Reason Onset Date Comments Appointment Request 02/19/2023 Encounter Details Date Type Department Care Team ([facility] st Contact Info) Description 02/19/2023 Telephone [facility] MEDICINE [address] [place], [place] [phone] Neyda Chacko MD [address] [place], [place] [phone] Appointment Request Social History Tobacco Use Types [...] daughter requesting to reschedule appt for 02/19 MEDICAL ASSISTANT FLOAT CDTM HTN *IP* documented in this encounter Plan of Treatment Not on file documented as of this encounter Visit Diagnoses Not on filedocumented in this encounter Additional Health Concerns Assessment Noted Time PHQ-9 Depression Total Score: 5 03/12/19 23 10:44 AM EST documented as of this encounter Care Teams Graphics Editor Relationship Specialty Start Date End Date Neyda Chacko MD [address] [place] [address] PCP - General Family Medicine 02/22/18 documented as of this encounter
--- OUTSIDE RECORDS SUMMARY | 2024-05-03 10:38 | XMS_ITS | Encounter Summary ---
Author Organization [employer] Address 75 [facility] 7t [place] [address] Care Team Providers Care Stamps Or Coins Salesperson Name Role Phone Neyda Chacko MD Primary Care Provider [phone] Encounter Details Date Type Department Care Team (Late st Contact Info) Description 03/06/2022 Orders Only [facility] MEDICINE [address] [place], [place] [phone] Misa Tillman LPN Social History Tobacco Use [...] on filedocumented in this encounter Care Teams Stamps Or Coins Salesperson Relationship Specialty Start Date End Date Neyda Chacko MD [address] [place] [address] PCP - General Family Medicine 02/22/18 documented as of this encounter
--- OUTSIDE RECORDS SUMMARY | 2024-05-03 10:38 | XMS_ITS | Encounter Summary ---
Author Organization [employer] Address [address] [facility] 7t [place] [address] Care Team Providers Care Plaster Mold Maker Name Role Phone Neyda Chacko MD Primary Care Provider [phone] Encounter Details Date Type Department Care Team [...] on filedocumented in this encounter Care Teams Plaster Mold Maker Relationship Specialty Start Date End Date Neyda Chacko MD [address] [place] [address] PCP - General Family Medicine 02/22/18 documented as of this encounter
--- OUTSIDE RECORDS SUMMARY | 2024-05-03 10:38 | XMS_ITS | Encounter Summary ---
Author Organization [employer] Address [address] [facility] 7t [place] [address] Care Team Providers Care School Standards Coach Name Role Phone Neyda Chacko MD Primary Care Provider [phone] Encounter Details Date Type Department Care Team (Latest Contact Info) Description 01/03/2019 Abstract [facility] CONVERSIONS Dental, Provider, DDS Social History [...] on filedocumented in this encounter Care Teams School Standards Coach Relationship Specialty Start Date End Date Neyda Chacko MD [address] [place] [address] PCP - General Family Medicine 02/22/18 documented as of this encounter
--- OUTSIDE RECORDS SUMMARY | 2024-05-03 10:38 | XMS_ITS | Encounter Summary ---
Author Organization [employer] Address 75 [facility] 7t [place] [address] Care Team Providers Care Stripper Shovel Operator Name Role Phone Neyda Chacko MD Primary Care Provider [phone] Encounter Details Date Type Department Care Team (Late st Contact Info) Description 01/26/2023 Orders Only [facility] MEDICINE [address] [place], [place] [phone] Neyda Chacko MD [address] [place], [place] [phone] Social History Tobacco Use Types Packs/Day Years [...] documented as of this encounter Care Teams Stripper Shovel Operator Relationship Specialty Start Date End Date Neyda Chacko MD [address] [place] [address] PCP - General Family Medicine 02/22/18 documented as of this encounter
--- OUTSIDE RECORDS SUMMARY | 2024-05-03 10:38 | XMS_ITS | Encounter Summary ---
Author Organization [employer] Address [address] [place] [address] 7t [place] [address] Care Team Providers Care Regional Forester Name Role Phone Neyda Chacko MD Primary Care Provider [phone] Reason for Visit * Reason Comments Med Refill Encounter Details Date Type Department Care Team (Late st Contact Info) Description 01/28/2022 Refill [facility] MEDICINE [address] [place] [address] [facility] [address] [place] [address] Type 2 diabetes mellitus with hyperglycemia (CMS/HCC) [...] (CMS/HCC) documented in this encounter Care Teams Regional Forester Relationship Specialty Start Date End Date Neyda Chacko MD [address] [place], [place] [phone] PCP - General Family Medicine 02/22/18 documented as of this encounter
--- OUTSIDE RECORDS SUMMARY | 2024-05-03 10:39 | XMS_ITS | Encounter Summary ---
Author Organization [employer] Address [address] [facility] [address] 7t [place] [address] Care Team Providers Care Rotary Dryer Operator Name Role Phone Neyda Chacko MD Primary Care Provider Encounter Details Date Type Department Care Team (Late st Contact Info) Description 07/14/2023 Orders Only [facility] MEDICINE 230 [place], [place] [phone] Neyda Chacko MD [address] [place], [place] [phone] Social History Tobacco Use Types Packs/Day Years [...] documented as of this encounter Care Teams Rotary Dryer Operator Relationship Specialty Start Date End Date Neyda Chakco MD [address] [place] [address] PCP - General Family Medicine 02/22/18 documented as of this encounter
--- OUTSIDE RECORDS SUMMARY | 2024-05-03 10:39 | XMS_ITS | Encounter Summary ---
Author Organization [employer] Address 75 [facility] 7t [place] [address] Care Team Providers Care Tin Recovery Worker Name Role Phone Neyda Chacko MD Primary Care Provider [phone] Encounter Details Date Type Department Care Team (Late st Contact Info) Description 11/02/2023 Orders Only [facility] MEDICINE 230 [place], [place] [phone] Neyda Chacko MD [address] [place], [place] [phone] Type 2 diabetes mellitus with hyperglycemia, with long-term current use of insulin ([facility]) Social History Tobacco Use Types [...] is your housing situation today? I have deadnre gardiner 06/15/[address] you [...] hyperglycemia, with long-term current use of insulin ([facility]) documented in this encounter Additional Health Concerns Assessment Noted Time PHQ-9 Depression Total Score: 7 06/15/19 24 10:57 AM EDT documented as of this encounter Care Teams Tin Recovery Worker Relationship Specialty Start Date End Date Neyda Chacko MD [address] [place] [address] PCP - General Family Medicine 02/22/18 documented as of this encounter
--- OUTSIDE RECORDS SUMMARY | 2024-05-03 10:39 | XMS_ITS | Clinical Summary ---
Author Organization [employer] Address [address] [facility] 7[address] [place] [address] Care Team Providers Care Test Lead Application Testing Name Role Phone Neyda Chacko MD Primary Care Provider [phone] Allergies Active Allergy Reactions Criticality Noted Date Comments Pioglitazone 03/14/2010 Other reaction(s): unspecified Medications Blood Glucose Monitoring Suppl ([employer] [place] [employer]ite) w/Device kit USE DIRECTED Active busPIRone [...] needed at bedtime. Active Continuous Blood Gluc Live Truck Technician ([employer] Joelle 2 [place]) device Use as directed 1 each 1 [...] hyperglycemia, with long-term current use of insulin (CMS/[facility]) USE UP TO FIVE TIMES DAILY TO [...] 2 HORAS DESPUES DEL DESAYUNO Y LA LEAD RELAY TESTER 60 tablet 5 025 Active cilostazol (Pletal) 50 MG tabletIndicatio ns:Peripheral arterial occlusive disease (CMS/HCC) TAKE 1 TABLET BY MOUTH TWICE DAILY IN THE MORNING AND IN THE EVENING 30 minutos antes o 2 horas despues del desayuno y la iliana 60 tablet 5 024 2024 Discontinued Semaglutide, [...] - FIB4 index 1.51 - GI: [facility] - continue working on lifestyle modifications - [...] -on GLP-1 agonist for DM -followed by [facility] GI, last seen in June 2023 -continue metoclopramide 10 mg tid, with caution due to its side effect Assessment & Plan (05/24/2022 3:57 PM EDT): -on GLP-1 agonist for DM -seen by GI on 03/19/22, restarted on metoclopramide -continue metoclopramide 10 mg tid Peripheral arterial occlusive disease 08/13/2016 Assessment & Plan (04/04/2024 11:42 AM EST): -Followed by [facility] provider -most recent PAWAN doppler on 08/13/21, moderate stenosis in b/l SFA and popliteal arteries -continue working on risk factor management -pt has been on cilostazol since 2017 - Ordered VASC US Lower Extremity Venous Insufficiency Bilateral - Ordered Vascular US lower extremity arterial duplex bilateral with VEENA Assessment & Plan (06/15/2023 11:00 AM EDT): -Followed by [facility] provider -most recent PAWAN doppler on 08/13/21, moderate stenosis in b/l SFA and popliteal arteries -continue working on risk factor management -pt has been on cilostazol since 2017 Assessment & Plan (10/19/2022 6:00 AM EDT): -Followed by [facility] provider -most recent PAWAN doppler on 08/13/21, moderate stenosis in b/l SFA and popliteal arteries -continue working on risk factor management -pt has been on cilostazol since 2017 Assessment & Plan (05/24/2022 3:54 PM EDT): -Followed by [facility] provider -most recent PAWAN doppler on 08/13/21, moderate stenosis in b/l SFA and popliteal arteries -continue working on risk factor management -pt has been on cilostazol since 2017 Assessment & Plan (03/15/2022 5:49 PM EST): -Followed by [facility] provider -most recent PAWAN doppler on 08/13/21, moderate stenosis in b/l SFA and popliteal arteries -continue working on risk factor management -pt has been on cilostazol since 2017 Hemorrhoids 07/01/2015 Chronic recurrent major depressive disorder 02/23 Assessment & Plan (06/15/2023 11:01 AM EDT): [facility] provider: Olayinka Joiner Current medications: venlafaxine; buspirone; hydroxyzine Continue following recommendation by [facility] providers Patient lost her in Jan 2020 due to COVID and has been grieving. Patient is currently with her family and seems to have good support. Continue current BHS. Assessment & Plan (10/19/2022 6:03 AM EDT): [facility] provider: Olayinka Cortez Counseling Current medications: venlafaxine; buspirone; hydroxyzine Continue following recommendation by [facility] providers Patient lost her in Jan 2020 due to COVID and has been grieving. Patient is currently with her family and seems to have good support. Continue current BHS. Assessment & Plan (05/24/2022 4:01 PM EDT): [facility] provider: Olayinka Joiner Current medications: venlafaxine; buspirone; hydroxyzine Continue following recommendation by [facility] providers Patient lost her in Jan 2020 due to COVID and has been grieving. Patient is currently with her family and seems to have good support. Continue current BHS. Assessment & Plan (03/15/2022 5:50 PM EST): [facility] provider: Olayinka Cortez Counseling Current medications: venlafaxine; buspirone; hydroxyzine Continue following recommendation by [facility] providers Patient lost her in [...] BB dose in May 2023. -[facility], last seen on 09/17/22 -Continue [...] BB dose in May 2023. -[facility], last seen on 09/17/22 -Continue [...] BB dose in May 2023. -[facility], last seen on 09/17/22 -Continue [...] <130/80 per ACC/AHA -BP slightly low. Her round up ring hand has suggested to taper down her diuretics since she had GSV ablation. -Follow[facility] by [facility], last seen on 09/17/22 -Continue [...] per ACC/AHA -BP within acceptable range. Her round up ring hand has suggested to taper down her diuretics since she had GSV ablation. -Followed by [facility], last seen on 09/17/22 -Continue current lifestyle [...] per ACC/AHA -BP within acceptable range. Her round up ring hand has suggested to taper down her diuretics since she had GSV ablation. -[facility], last seen on 12/10/21 -Continue [...] per ACC/AHA -BP within acceptable range. Her round up ring hand has suggested to taper down her diuretics since she had GSV ablation. -[facility], last seen on 12/10/21 -Continue [...] 7.9% on 12/21/23 -Previously following with [facility] endocrinology, discharged in May 2023 due to stability -Continue Tresiba 70 units qAM (discrepancy from cloth folder hand's note) -Continue Humalog 10 units before breakfast, [...] -A1C 7.9% on 12/21/23 -Previously following with [facility] endocrinology, discharged in May 2023 due to stability -Continue Tresiba 70 units qAM (discrepancy from cloth folder hand's note) -Continue Humalog 10 units before breakfast, [...] 7.2% on 06/15/23, improving -Previously following with [facility] endocrinology, discharged in May 2023 due to stability -Continue Tresiba 70 units qAM (discrepancy from cloth folder hand's note) -Continue Humalog 10 units before breakfast, [...] PM EDT): -A1C 7.2% on 06/15/23, improving -Toolroom Attendant: [facility], last seen on Sep 2022 -Continue Tresiba 70 units qAM (discrepancy from cloth folder hand's note) -Continue Humalog 10 units before breakfast, [...] yet with hypoglycemia. 8.6% in Feb 2022 -Toolroom Attendant: [facility], last seen on Sep 2022 -Continue Tresiba 70 units qAM (discrepancy from cloth folder hand's note) -Continue Humalog 10 units before breakfast, [...] PM EDT): -A1C 8.6% today 03/11/22, improving -Toolroom Attendant: [facility], last seen on 02/13/22 -Continue Tresiba 70 units qAM (discrepancy from cloth folder hand's note) -Continue Humalog 8 units before breakfast, [...] PM EST): -A1C 8.6% today 03/11/22, improving -Toolroom Attendant: [facility], last seen on 02/13/22 -Continue Tresiba 70 units qAM (discrepancy from cloth folder hand's note) -Continue Humalog 8 units before breakfast, [...] Type Department Care Team Description 04/15/2024 Refill [facility] [place] [facility] [address] [place] [phone] Neyda Chacko MD Peripheral arterial occlusive disease (CMS/HCC) 04/13/2024 Refill [facility] [address] [place] [address] Neyda Chacko MD Type 2 diabetes mellitus with hyperglycemia, with long-term current use of insulin (CMS/HCC) 04/12/2024 Orders Only [facility] External Provider, [facility] 04/03/2024 Telephone [facility] [place] [facility] [address] [place] [address] Morena Mclaughlin RN Medication Question 03/30/2024 11:00 AM EST Office Visit [facility] [address] [place] [address] Neyda Chacko MD Type 2 diabetes mellitus with hyperglycemia, with long-term current use of insulin (CMS/[facility]) (Primary Dx); Essential hypertension; Mass of axillary tail of right breast; Transaminitis; Dyslipidemia; Metabolic dysfunction-associate d steatotic liver disease (MASLD); Peripheral venous insufficiency; Peripheral arterial occlusive disease (CMS/[facility]); Weight loss; Dietary counseling; Exercise counseling; Overweight 03/30/2024 Travel 03/28/2024 Telephone [facility] [place] [facility] [address] [place] [address] Mariel Aragon MA chart prep 03/19/2024 Refill [facility] [place] [address] [place] [address] Neyda Chacko MD Type 2 diabetes mellitus with hyperglycemia, with long-term current use of insulin ([facility]/HCC) 02/25/2024 Refill [facility] [address] [place] [address] Neyda Chacko MD Iron deficiency anemia, unspecified iron deficiency anemia type; Type 2 diabetes mellitus with hyperglycemia, with long-term current use of insulin (CMS/HCC) 02/24/2024 Refill [facility] [address] [place] [address] Rosalia Ag DO Type 2 diabetes mellitus with hyperglycemia, with long-term current use of insulin (CMS/HCC) 02/23/2024 Refill [facility] [place] [facility] [address] [place] [address] Neyda Chacko MD Peripheral arterial occlusive disease ([facility]) 02/10/2024 Refill [facility] [place] [facility] [address] [place] [address] Sabina Clarke ANP Chronic low back pain, unspecified back pain laterality, unspecified whether sciatica present from Last 3 Months Immunizations Name Administration [...] Additional history exists Lipid Panel 12/14/2024 12/15/2023, 0807/2022, 01/06/2022, Additional history exists Alcohol/Substance Use Screening 12/20/2024 12/21/2023 Tobacco Screening 04/01/2025 04/01/2024 Colonoscopy 08/15/2025 08/15/2020 Colorectal Cancer Screening 08/15/2025 Mammogram 03/15/2026 03/15/2024, 02/23, 01/28/2022, Additional history exists DTaP/Tdap/Td Vaccines (3 - Td or Tdap) 08/08/2031 08/07/2021, 04/07/2011, 08/20/2005, Additional history exists Hepatitis B Vaccines Completed 10/02/2013, 07/03/2013, 07/19/2012 Cervical Cancer Screening Discontinued HPV/Cotest Discontinued 12/27/2019, 110 05/2019, 09/30/2017 Zoster Vaccines Completed 10/04/2020, 08/01/2020 Pneumococcal [...] hyperglycemia, with long-term current use of insulin ([facility]) POCT GLUCOSE Routine 03/30/2024 11:35 AM EST Type 2 diabetes mellitus with hyperglycemia, with long-term current use of insulin ([facility]) BI US BREAST LIMITED RIGHT Routine 03/15/2024 11:30 AM EST BI MAMMOGRAM DIAGNOSTIC TOMOSYNTHESIS BILATERAL Routine 03/15/2024 11:15 AM EST Breast pain, right ALBUMIN, RANDOM URINE W/CREATININE Routine 12/15/2023 11:00 AM EDT Type 2 diabetes mellitus with hyperglycemia, with long-term current use of insulin ([facility]) LIPID PANEL WITH REFLEX TO DIRECT LDL Routine 12/15/2023 11:00 AM EDT Type 2 diabetes mellitus with hyperglycemia, with long-term current use of insulin ([facility]) Dyslipidemia DIABETES EYE EXAM Routine 12/25/2022 PERIODIC [...] 4 AM EST 04/12/2024 11:16 AM EST [facility] - 04/13/2024 4:09 PM EST ----- ------- Name: Jaimee Guzman I ? Age/Sex: 64/F ? : 1960 Unit#: [id number] ?? Attend Dr: Walter Moon MD ?Re04/12/24 ?Status: DEP REF ? Location: HO.MAMMO ?Disch: ? ----- ------- SPEC : [id number] ?RECD: 04/12/24-6 ? STATUS: ??SOUT ? REQ NUM: [id number] ? HUMBERTO: 04/12/24-1043 ? SUBM DR: Nereyda [...] Copies To: ?? Walter Moon MD ?? [facility] ?? [address] ?? [place] [address] ?? [phone] ?? Neyda Chacko MD ?? [facility] ?? [address] ?? [place] [address] ?? [phone] ? CONTINUED ON NEXT PAGE ----- ------- Name: Jaimee Guzman I ? Age/Sex: 64/F ? : 1960 Unit#: [id number] ?? Attend Dr: Walter Moon MD ?Re04/12/24 ?Status: DEP REF ? Location: HO.MAMMO ?Disch: ? ----- ------- SPEC : [id number] ?RECD: 04/12/24 ? STATUS: ??SOUT ? REQ NUM: [id number] ? HUMBERTO: 04/12/24 ? SUBM DR: Nereyda Carvajal DO ? ENTERED: ??04/12/24 ?SP TYPE: Surgical ? OTHR DR: Walter Moon MD ?Neyda Chacko MD ORDERED: ??HE Stain/2, Gross Micro L4 ? COMMENTS: As per the specimen requisition slip the specimen is ?collected at 1044 and placed in formalin at 1052. Copies To: ??(Continued) ?? Nereyda Carvajal DO ?? [address] ?? [place] [address] ?? [phone] ----- ------- Signed (signature on file) Yash Moreno MD 04/13/24 1609 ? ----- ------- ? END OF REPORT ? us Generic External Data Provider LAB BLOOD ORDERAB LES Final Result Performing Organization Address [facility]/State/ZIP Co de Phone Number [facility] [address] [place] [phone] * BREAST NDL CORE BIOPSY RT (04/12/2024 10:00 AM EST) Anatomical Region Laterality Modality Abdomen Ultrasound 04/12/2024 10:0 0 AM EST Narrative 04/12/2024 12:13 PM EST ? [facility] ? [address] ?[place] [address] ? Ultrasound Report ? Signed with Addenda ? Patient: Guzman,Jaimee I ?MR#: [id number] ?? 2030 ? : 1960 ?Acct:[id number] ? Age/Sex: 64 / F ?ADM Date: 02/19/25 ? Loc: HO.MAMMO ? Attending Dr: Walter Moon MD ? Ordering Physician: Walter Moon MD ?? Date of Service: 04/12/24 ?? Procedure(s): US breast ndl core biopsy RT ?? Accession Number(s): [id number] ? cc: Walter Moon MD; Neyda Chacko [...] DD/ 1000 ? TD/TT: 04/12/24 1100 ? Airport Ramp Attendant: ? Procedure Note Donhardyinterpreter, Image - 04/19/2024 [facility] [address] [place] [address] Ultrasound Report Signed with Esa Patient: Jaimee Guzman [facility]#: [id number] 2030 : 9Acct:[id number] Age/Sex: 64 / FADM Date: 04/12/24 [facility] Dr: Walter Moon MD Ordering Physician: Walter Moon MD Date of Service: 04/12/24 Procedure(s): US breast ndl core biopsy RT Accession Number(s): [id number] cc: Walter Moon MD; Neyda Chacko MD; [...] 04/12/24 1210 DD/ 1000 TD/TT: 04/12/24 1100 Airport Ramp Attendant: [facility] External Provider IMG US PROCEDURES Edited [...] EST Narrative 03/15/2024 12:29 PM EST ? [facility] ? [address] ?[place] [address] ? Ultrasound Report ? Signed ? Patient: Jaimee Guzman I ?MR#: [id number] ?? 2030 ? : 1960 ?Acct:[id number] ? Age/Sex: 63 / F ?ADM Date: 03/15/24 ? Loc: HO.MAMMO ? Attending Dr: Neyda Chacko MD ? Ordering Physician: Neyda Chacko MD ?? Date of Service: 03/15/24 ?? Procedure(s): US breast RT limited mamm only ?? Accession Number(s): [id number] ? cc: Neyda Chacko MD ? EXAMINATION: [...] DD/ 1130 ? TD/TT: 03/15/24 1158 ? Airport Ramp Attendant: ? Procedure Note Supa, Abhishek - 03/15/2024 [facility] [address] [place] [address] [place] [address] Ultrasound Report Signed Patient: Jaimee Guzman IMR#: [id number] 2030 : 9Acct:[id number] Age/Sex: 63 / FADM Date: 03/15/24 Loc: [facility] Attending Dr: Neyda Chacko MD Ordering Physician: Neyda Chacko MD Date of Service: 03/15/24 Procedure(s): US breast RT limited mamm only Accession Number(s): [id number] cc: Sakurai,Neyda MD EXAMINATION: MM DIAGNOSTIC DIGITAL BREAST TOMOSYNTHESIS, [...] 03/15/24 1226 DD/ 1130 TD/TT: 03/15/24 1158 Airport Ramp Attendant: us Neyda Chacko MD IMG US PROCEDURES Final Result * BI Mammogram Diagnostic Tomosynthesis Bilateral (03/15/2024 11:15 AM EST) Anatomical Region Laterality Modality Breast Bilateral Mammography 03/15/2024 11:1 5 AM EST Narrative 03/15/2024 12:29 PM EST ? [place] [facility] ? [address] ?[place] [address] ? Mammography Report ? Signed ? Patient: Guzman,Jaimee I ?MR#: [id number] ?? 2030 ? : 1960 ?Acct:[id number] ? Age/Sex: 63 / F ?ADM Date: 03/15/24 ? Loc: HO.MAMMO ? Attending Dr: Neyda Chacko MD ? Ordering Physician: Neyda Chacko MD ?Results: 4Suspicio ?? us Finding ? Date of Service: 03/15/24 ?Follow Up: Biopsy Recommend ?? ed ? Procedure(s): MM tomosynthesis diagnostic BI ?? Accession Number(s): [id number] ? cc: Neyda Chacko MD ? EXAMINATION: [...] DD/ 1115 ? TD/TT: 03/15/24 1140 ? Airport Ramp Attendant: ? Procedure Note Supa, Image - 03/15/2024 [facility] [address] [place], [place] [address] Mammography Report Signed Patient: Jaimee Guzman IMR#: [id number] 2030 : 9Acct:[id number] Age/Sex: 63 / FADM Date: 03/15/24 Loc: [facility] Attending Dr: Neyda Chacko MD Ordering Physician: Neyda Chacko MDResults: 4Suspicio us Finding Date of Service: 03/15/24Follow Up: Biopsy Recommend ed Procedure(s): MM tomosynthesis diagnostic BI Accession Number(s): [id number] cc: Neyda Chacko MD EXAMINATION: MM DIAGNOSTIC [...] by: Nereyda Carvajal DO 03/15/2024 12:26 PM [facility] Dictated By: Nereyda Carvajal DO Signed By: <Electronically signed by Nereyda Carvajal DO in OV> 03/15/24 1226 DD/ 1115 TD/TT: 03/15/24 1140 Airport Ramp Attendant: us Neyda Chacko MD IMG BI PROCEDURES Final Result * Lipid Panel with Reflex to Direct LDL (12/15/2023 11:00 AM EDT) Triglycerides 45 <150 mg/dL [facility] Comment:Desirable Triglyceri de: less than 150 mg/dLBorderline High Triglyceride 150-199 mg/dLHigh Triglyceride: 200-499 mg/dLVery High Triglyceride: greater than or equal to 5OO mg/dL Cholesterol 113 <200 mg/dL [facility] Comment:Desirable Cholestero l: less than 200 mg/dLBorderline High Cholesterol: 200-239 mg/dLHigh Cholesterol: greater than 239 mg/dL LDL Cholesterol Calculated 51 <100 mg/dL [facility] Comment:Desirable LDL: less than 100 mg/dLNear Optimal/Above Optimal LDL: 110- 129 mg/dLBorderline High LDL: 130-159 mg/dLHigh LDL: 160-189 mg/dLVery High LDL: greater than or equal to 190 mg/dL HDL Cholesterol 53 >40 mg/dL [facility] Comment:Desirable HDL: great er than 40 mg/dL Note: This HDL assay may give artificially low results in patients with liver disease. Blood 12/15/2023 11:0 0 AM EDT 12/15/2023 1:24 PM EDT Neyda Chacko MD LAB BLOOD ORDERABLES Final Resul t Performing Organization Address [facility] Co de Phone Number [facility] [address] [place] [phone] * Albumin, Random Urine W/Creatinine (12/15/2023 11:00 AM EDT) Creatinine, Urine 75.29 mg/dL [facility] Microalbumin Urine 21.0 mg/L [facility] Microalbum Creatinine Ratio Ur 27.8 <30 ug/mg cr [facility] Comment:Albumin/Creatinine R atio Reference Ranges: Normal: < 30 ug/mg creatinine Microalbuminuria: 30 - 300 ug/mg creatinineClinical Albuminuria: > 300 ug/mg creatinine Urine 12/15/2023 11:0 0 AM EDT 12/15/2023 1:12 PM EDT Neyda Chacko MD LAB URINE ORDERABLES Final Resul t Performing Organization Address [facility] Co de Phone Number [facility] [address] [place] [phone] * Diabetes Eye Exam (12/25/2022) Eye Exam Normal Normal us Historical Provider MD HEALTH MAINTENANCE Final Result * Hm Colonoscopy (08/15/2020) Colonoscopy Normal Normal us Historical Provider MD HEALTH MAINTENANCE Final Result * HPV E6/E7 RFLX LINDSAY 16 18/45 (12/27/2019 1:40 PM EST) HPV mRNA E6/E7 rflx Not Detected Not Detected [facility] Comment: This test was performed using the APTIMA HPV Assay ([employer] This assay detects E6/E7 viral messenger RNA (mRNA) from 14 high-risk HPV types (16,18,31,33,35,39,45,51,52,56,58,59,66,68). The analytical performance characteristics of this assay have been determined by [employer]. The modifications have not been cleared or approved by the FDA. This assay has been validated pursuant to the CLIA regulations and is used for clinical purposes. THIS TEST WAS PERFORMED AT: [employer] [address] [place], [place] ??[id number] RENE MULLINS MD 12/27/2019 1:40 PM EST Ry Curtis MD HISTORICAL/NON ORDERABLE LABS Fi nal Result [facility] [address] from Last 3 Months or Most Recently Relevant to Health Maintenance Insurance [facility] [address] [place] [address] [facility] [address] [place] [address] [address] [place] [address] [address] [place] [address] Care Teams Test Lead Application Testing Relationship Specialty Start Date End Date Neyda Chacko MD [address] [place] [phone] PCP - General Family Medicine 02/22/18
--- OUTSIDE RECORDS SUMMARY | 2024-05-03 10:39 | XMS_ITS | Encounter Summary ---
Author Organization [employer] [facility] Address [address] [facility] [address] [place] [address] Care Team Providers Care Electrical Engineering Technician Name Role Phone Neyda Chacko MD Primary Care Provider [phone] Reason for Visit * Reason Onset Date Comments Med Refill 09/03/2022 Encounter Details Date Type Department Care Team (Late st Contact Info) Description 09/03/2022 Telephone [facility] [address] [place], [place] [phone] Neyda Chacko MD [address] [place], [place] [phone] Med Refill Social History Tobacco Use Types [...] documented as of this encounter Care Teams Electrical Engineering Technician Relationship Specialty Start Date End Date Neyda Chacko MD [address] [place] [address] PCP - General Family Medicine 02/22/18 documented as of this encounter
--- OUTSIDE RECORDS SUMMARY | 2024-05-03 10:39 | XMS_ITS | Encounter Summary ---
Author Organization [employer] Address [address] [facility] 7t [place] [address] Care Team Providers Care Diesel Powerplant Mechanic Name Role Phone Neyda Chacko MD Primary Care Provider [phone] Encounter Details Date Type Department Care Team (Late st Contact Info) Description 09/09/2023 Orders Only [facility] [address] [place], [place] [phone] Neyda Chacko MD [address] [place], [place] [phone] Essential hypertension (Primary Dx); Type 2 diabetes mellitus with hyperglycemia, with long-term current use of insulin ([facility]); Dyslipidemia; Weight loss Social History [...] hyperglycemia, with long-term current use of insulin ([facility]) TSH W/REFLEX TO FT4 Routine 12/15/2023 1 1:00 AM EDT Weight loss LIPID PANEL WITH REFLEX TO DIRECT LDL Routine 12/15/2023 11:00 AM EDT Type 2 diabetes mellitus with hyperglycemia, with long-term current use of insulin ([facility]) Dyslipidemia ALBUMIN, RANDOM URINE W/CREATININE Routine 12/15/2023 11:00 AM EDT Type 2 diabetes mellitus with hyperglycemia, with long-term current use of insulin ([facility]) CBC WITH AUTO DIFFERENTIAL Routine 12/15/2023 11:00 AM EDT Weight loss COMPREHENSIVE METABOLIC PANEL Routine 12/15/2023 11:00 AM EDT Essential hypertension documented in this encounter Results * (ABNORMAL) CBC auto differential (12/15/2023 11:00 AM EDT) White Blood Count 2.5(L) 4.8 - 10.8 X10*3/uL [facility] Red Blood Count 4.42 4.20 - 5.50 X10*6/uL [facility] Hemoglobin 12.7 12.0 - 16.0 g/dl [facility] Hematocrit 38.9 37.0 - 47.0 % [facility] Mean Corpuscular Volume 88.0 80.0 - 98.0 fL [facility] Mean Corpuscular Hemoglobin 28.7 27.0 - 33.0 pg [facility] Mean Corpuscular HGB Conc 32.6 31.0 - 35.0 g/dl [facility] Red Cell Distribution Width 12.0 11.0 - 16.0 % [facility] Platelet Count 180 160 - 400 X10*3/uL [facility] Mean Platelet Volume 9.8 9.4 - 12.3 fL [facility] Neutrophils Percent Auto 36.6(L) 45 - 73 % [facility] Imm Gran Pct Auto 0.4 0.0 - 0.4 % [facility] Lymphocytes Percent Auto 49.8(H) 20 - 40 % [facility] Monocytes Percent Auto 8.8 2 - 11 % [facility] Eosinophils Percent Auto 3.6 0 - 4 % [facility] Basophils Percent Auto 0.8 0 - 2 % [facility] NRBC Pct Auto 0.0 0.0 - 0.2 /100WBC [facility] Neutrophils Absolute Auto 0.9(L) 2.0 - 8.3 x10*3/uL [facility] Imm Gran Abs Auto 0.01 0.00 - 0.03 X10*3/uL [facility] Lymphocytes Absolute Auto 1.3 1.2 - 4.9 X10*3/uL [facility] Monocytes Absolute Auto 0.2 0.1 - 1.2 X10*3/uL [facility] Eosinophils Absolute Auto 0.1 0.0 - 0.4 X10*3/uL [facility] Basophils Absolute Auto 0.0 0.0 - 0.2 X10*3/uL [facility] NRBC Abs Auto 0.000 0.0 - 0.012 X10*3/uL [facility] Blood Venous blood specimen / Unknown 12/15/2023 11:00 AM EDT 12/15/2023 1:24 PM EDT Neyda Chacko MD LAB BLOOD ORDERABLES Edited Resu lt - Final Performing Organization Address City/[facility] Co de Phone Number [facility] [address] [place] [phone] * TSH with Reflex to Free T4 (12/15/2023 11:00 AM EDT) Pathologist [facility] TSH reflex Free T4 2.91 0.32 - 4.0 uIU/mL [facility] Blood 12/15/2023 11:0 0 AM EDT 12/15/2023 1:24 PM EDT Neyda Chacko MD LAB BLOOD ORDERABLES Final Resul t Performing Organization Address [facility] de Phone Number [facility] [address] [place] [phone] * (ABNORMAL) Comprehensive Metabolic Panel (12/15/2023 11:00 AM EDT) Sodium 142 135 - 145 mmol/L [facility] Potassium 4.0 3.3 - 5.1 mmol/L [facility] Chloride 107 96 - 108 mmol/L [facility] Carbon Dioxide 30(H) 22 - 29 mmol/L [facility] Anion Gap 9(L) 12 - 20 [facility] Urea Nitrogen (BUN) 18(H) 9 - 16 mg/dL [facility] Creatinine, Serum 0.68 0.5 - 1.4 mg/dL [facility] Estimated Glomerular Filt Rate >60 [facility] Comment:NOTE: For -Am erican individuals, multiply the result by 1.210.Chronic Kidney Disease: Estimated GFR < 60 mL/min/1.22y6Hwygdi Kidney Disease: Estimated GFR < 15 mL/min/1.73m2 Glucose 161(H) 60 - 115 mg/dL [facility] Calcium 9.5 8.4 - 10.2 mg/dL [facility] Bilirubin, Total 0.2 0.0 - 1.0 mg/dL [facility] Aspartate Amino Transferase 34(H) 5 - 31 U/L [facility] Alanine Aminotransferase 49(H) 0 - 31 U/L [facility] Total Protein 6.9 6.5 - 8.0 g/dL [facility] Albumin Level 3.9 3.5 - 5.0 g/dL [facility] Alkaline Phosphatase 59 39 - 117 U/L [facility] Blood Venous blood specimen / Unknown 12/15/2023 11:00 AM EDT 12/15/2023 1:24 PM EDT Neyda Chacko MD LAB BLOOD ORDERABLES Final Resul t Performing Organization Address City/[facility] de Phone Number [facility] [address] [place] [address] [phone] * Albumin, Random Urine W/Creatinine (12/15/2023 11:00 AM EDT) Creatinine, Urine 75.29 mg/dL [facility] Microalbumin Urine 21.0 mg/L [facility] Microalbum Creatinine Ratio Ur 27.8 <30 ug/mg cr [facility] Comment:Albumin/Creatinine R atio Reference Ranges: Normal: < 30 ug/mg creatinine Microalbuminuria: 30 - 300 ug/mg creatinineClinical Albuminuria: > 300 ug/mg creatinine Urine 12/15/2023 11:0 0 AM EDT 12/15/2023 1:12 PM EDT us Neyda Chacko MD LAB URINE ORDERABLES Final Resul t Performing Organization Address City/[facility] Co de Phone Number [facility] [address] [place] [phone] * Lipid Panel with Reflex to Direct LDL (12/15/2023 11:00 AM EDT) Triglycerides 45 <150 mg/dL [facility] Comment:Desirable Triglyceri de: less than 150 mg/dLBorderline High Triglyceride 150-199 mg/dLHigh Triglyceride: 200-499 mg/dLVery High Triglyceride: greater than or equal to 5OO mg/dL Cholesterol 113 <200 mg/dL [facility] Comment:Desirable Cholestero l: less than 200 mg/dLBorderline High Cholesterol: 200-239 mg/dLHigh Cholesterol: greater than 239 mg/dL LDL Cholesterol Calculated 51 <100 mg/dL [facility] Comment:Desirable LDL: less than 100 mg/dLNear Optimal/Above Optimal LDL: 110- 129 mg/dLBorderline High LDL: 130-159 mg/dLHigh LDL: 160-189 mg/dLVery High LDL: greater than or equal to 190 mg/dL HDL Cholesterol 53 >40 mg/dL [facility] Comment:Desirable HDL: great er than 40 mg/dL Note: This HDL assay may give artificially low results in patients with liver disease. Blood 12/15/2023 11:0 0 AM EDT 12/15/2023 1:24 PM EDT us Neyda Chacko MD LAB BLOOD ORDERABLES Final Resul t [facility] [address] [place] [phone] * Vitamin B12 (Cobalamin) and Folate Panel, Serum (12/15/2023 11:00 AM EDT) Vitamin B12 402 200 - 900 pg/mL [facility] Comment:NORMAL 200-900 PG/ML INDETERMINATE 160-199 PG/ML DEFICIENT < 160 PG/ML Folate 12.9 > or = 4.0 ng/mL [facility] Comment:Reference Values:> o r = 4.0 ng/mL< 4.0 ng/mL suggests folate deficiency Methotrexate, aminopterin and folinic acid(leucovorin) are chemotherapeutic agents whose molecularstructures are similar to folate; therefore, the Architectfolate assay cannot be used for patients using these drugs. Blood 12/15/2023 11:0 0 AM EDT 12/15/2023 1:24 PM EDT Neyda Chacko MD LAB BLOOD ORDERABLES Final Resul t [facility] [address] [place] [phone] documented in this encounter Visit Diagnoses Diagnosis Essential hypertension- Primary Unspecified essential hypertension Type 2 diabetes mellitus with hyperglycemia, with long-term current use of insulin ([facility]) Dyslipidemia Other and unspecified hyperlipidemia Weight loss Loss of weight documented in this encounter Additional Health Concerns Assessment Noted Time PHQ-9 Depression Total Score: 7 06/15/19 24 10:57 AM EDT documented as of this encounter Care Teams Diesel Powerplant Mechanic Relationship Specialty Start Date End Date Neyda Chacko MD [address] [place] [phone] PCP - General Family Medicine 02/22/18 documented as of this encounter
--- OUTSIDE RECORDS SUMMARY | 2024-05-03 10:39 | XMS_ITS | Clinical Summary ---
Author Organization [address] [facility] Address [address] [place] [phone] Phone Care Team Providers Care Mis Specialist Name Role Phone Physician, Pcp Unknown Primary Care Provider Heena vailable Allergies No known active allergies Medications clotrimazole (LOTRIMIN) 1 % cream Apply topically 2 (two) times a day. Nails and skin 30 g 3 5 05/05/19 25 Active Encounters Date Type Department Care Team Description 04/04/2024 10:00 AM EST Office Visit Orthopedic Surgery [facility] [address] [facility] [address] [place] [phone] Alan Crisostomo, DPM Metatarsalgia of both feet [...] Upcoming Encounters Date Type Department Care Team ([facility] st Contact Info) Description 06/07/2024 11:00 AM EDT Office Visit Orthopedic Surgery - [place] 250 175 [facility] [address] [place] [phone] Alan Crisostomo, DPM [address] [address] Health Maintenance Due Date Last Done Comments [...] patient's age to complete this topic Insurance [id number] Care Teams Mis Specialist Relationship Specialty Start Date End Date Physician, Pcp Unknown PCP - General 03/20/24
--- OUTSIDE RECORDS SUMMARY | 2024-05-03 10:39 | XMS_ITS | Encounter Summary ---
Author Organization [employer] Address [address] [facility] 7t [place] [address] Care Team Providers Care Cook 3 Pastry Name Role Phone Neyda Chacko MD Primary Care Provider [phone] Encounter Details Date Type Department Care Team ([facility] st Contact Info) Description 12/16/2023 Orders Only [facility] [address] [place], [place] [phone] Neyda Chacko MD [address] [place], [place] [phone] Leukopenia, unspecified type (Primary Dx) Social History [...] EDT) Pathologist Review - CBC SEE NOTE [facility] Comment:Peripheral blood joshua ments are normal appearing.- Yash Moreno M.D. Pathology Blood Venous blood specimen / Unknown 12/17/2023 12:02 PM EDT 12/17/2023 1:19 PM EDT us Neyda Chacko MD LAB BLOOD ORDERABLES Final Resul t [facility] [address] [place] [phone] * (ABNORMAL) CBC auto differential (12/17/2023 12:02 PM EDT) White Blood Count 3.7(L) 4.8 - 10.8 X10*3/uL [facility] Red Blood Count 4.47 4.20 - 5.50 X10*6/uL [facility] Hemoglobin 13.0 12.0 - 16.0 g/dl [facility] Hematocrit 38.4 37.0 - 47.0 % [facility] Mean Corpuscular Volume 85.9 80.0 - 98.0 fL [facility] Mean Corpuscular Hemoglobin 29.1 27.0 - 33.0 pg [facility] Mean Corpuscular HGB Conc 33.9 31.0 - 35.0 g/dl [facility] Red Cell Distribution Width 11.9 11.0 - 16.0 % [facility] Platelet Count 209 160 - 400 X10*3/uL [facility] Mean Platelet Volume 9.7 9.4 - 12.3 fL [facility] Neutrophils Percent Auto 55.4 45 - 73 % [facility] Imm Gran Pct Auto 0.3 0.0 - 0.4 % [facility] Lymphocytes Percent Auto 33.4 20 - 40 % [facility] Monocytes Percent Auto 8.0 2 - 11 % [facility] Eosinophils Percent Auto 2.4 0 - 4 % [facility] Basophils Percent Auto 0.5 0 - 2 % [facility] NRBC Pct Auto 0.0 0.0 - 0.2 /100WBC [facility] Neutrophils Absolute Auto 2.1 2.0 - 8.3 x10*3/uL [facility] Imm Gran Abs Auto 0.01 0.00 - 0.03 X10*3/uL [facility] Lymphocytes Absolute Auto 1.3 1.2 - 4.9 X10*3/uL [facility] Monocytes Absolute Auto 0.3 0.1 - 1.2 X10*3/uL [facility] Eosinophils Absolute Auto 0.1 0.0 - 0.4 X10*3/uL [facility] Basophils Absolute Auto 0.0 0.0 - 0.2 X10*3/uL [facility] NRBC Abs Auto 0.000 0.0 - 0.012 X10*3/uL [facility] Blood Venous blood specimen / Unknown 12/17/2023 12:02 PM EDT 12/17/2023 1:19 PM EDT Neyda Chacko MD LAB BLOOD ORDERABLES Final Resul t [facility] [address] [place] [phone] documented in this encounter Visit Diagnoses Diagnosis Leukopenia, unspecified type- Primary documented in this encounter Additional Health Concerns Assessment Noted Time PHQ-9 Depression Total Score: 7 06/15/19 24 10:57 AM EDT documented as of this encounter Care Teams Cook 3 Pastry Relationship Specialty Start Date End Date Neyda Chacko MD [address] [place] [phone] PCP - General Family Medicine 02/22/18 documented as of this encounter
--- OUTSIDE RECORDS SUMMARY | 2024-05-03 10:39 | XMS_ITS | Encounter Summary ---
Author Organization [employer] Address [address] [facility] 7[address] [place] [address] Care Team Providers Care Professional Fee Coder Name Role Phone Neyda Chacko MD Primary Care Provider [phone] Reason for Visit * Reason Onset Date Comments Med Refill 10/27/2023 Encounter Details Date Type Department Care Team (Late st Contact Info) Description 10/27/2023 Telephone [facility] [address] [place], [place] [phone] Neyda Chacko MD [address] [place], [place] [phone] Med Refill Social History Tobacco Use Types [...] MG/3ML solution pen-injector To be sent to: [facility] - [place], [place] - [address] [facility] documented in this encounter Plan of Treatment Not on file documented as of this encounter Visit Diagnoses Not on filedocumented in this encounter Additional Health Concerns Assessment Noted Time PHQ-9 Depression Total Score: 7 06/15/19 24 10:57 AM EDT documented as of this encounter Care Teams Professional Fee Coder Relationship Specialty Start Date End Date Neyda Chacko MD [address] [place] [address] PCP - General Family Medicine 02/22/18 documented as of this encounter
--- OUTSIDE RECORDS SUMMARY | 2024-05-03 10:39 | XMS_ITS | Encounter Summary ---
Author Organization [employer] Address [address] [facility] 7t [place] [address] Care Team Providers Care Molder Pipe Covering Name Role Phone Neyda Chacko MD Primary Care Provider [phone] Reason for Visit * Reason Onset Date Comments Medication Question 04/03/2024 Encounter Details Date Type Department Care Team ([facility] st Contact Info) Description 04/03/2024 Telephone [facility] [address] [place] [address] Morena Mclaughlin RN Medication Question Social History [...] advised daughter to bring pt's medboxes to [facility] pharmacy for assistance. Called [facility], spoke with Jazmin who stated she will put note on file regarding meds. * Telephone Encounter - Morena Mclaughlin RN - 04/04/2024 9:08 AM EST Telephone call to pt, spoke with daughter, not on active HIPAA form, requested callback from pt. Pt's daughter upset on the phone, repeated previous message. Pt to call back [facility]. * Telephone Encounter - Morena Mclaughlin [...] documented as of this encounter Care Teams Molder Pipe Covering Relationship Specialty Start Date End Date Neyda Chacko MD [address] [place] [phone] PCP - General Family Medicine 02/22/18 documented as of this encounter
== END 2024-05-03 09:41 | disposition home or self-care (01) ==
LOC: HO.US 09:40
PROVIDERS: PCP Family Medicine; Visit Provider Family Medicine
DX: K76.0 Fatty (change of) liver, not elsewhere classified (principal); I87.2 Venous insufficiency (chronic) (peripheral); I77.9 Disorder of arteries and arterioles, unspecified
CPT/HCPCS: 76700; 76981; 93970

== ENCOUNTER → 2024-05-03 09:42 | Outpatient (BNV) | payer OTHER, SELFPAY | PROVIDERS: PCP Family Medicine; Visit Provider Radiology Diagnostic Radiology | DX: K82.4 Cholesterolosis of gallbladder (principal); I83.11 Varicose veins of right lower extremity with inflammation | CPT/HCPCS: 76700; 93970 ==

== ENCOUNTER 2024-05-18 10:08 | Outpatient (AMB) | payer OTHER, SELFPAY ==
--- NOTE | 2024-05-18 10:21 | A.OFFVIS_ITS ---
Vital Signs 05/18/24 10:32 Height 5 ft 2 in Weight 153 lb BMI 28.0 BP 122/62 Blood Pressure Location Lt brachial Position Sitting Intake Visit Reasons: painful bx site, redness and breast lump Intake Note: Patient is seen in office for wound check, post biopsy of the right axilla mass. Pt c/o: a lump came on the right axilla about a month ago is very painful, she fell on that side about 2 weeks ago and aggravated the area Die Cutter Operator Required: No Die Cutter Operator Name: Tonia SENA Information Interpreted: non-clinical & clinical Accompanied by: Self / Same As Patient Allergies pioglitazone [From Lieboos] Allergy (Mild, Verified 05/18/24 10:27) EDEMA, unknown Medication List - Last Reconciled 05/18/24 by Walter Moon MD aspirin 81 mg PO QPM blood sugar diagnostic (FreeStyle Lite Strips) As directed blood-glucose meter (FreeStyle Lite Meter kit) As directed buspirone 30 mg PO QAM AND QHS cephalexin 500 mg PO Q8H 10 days cholecalciferol (vitamin D3) 50 mcg PO QAM cilostazol 50 mg PO BID doxycycline hyclate 100 mg PO BID empagliflozin (Jardiance) 25 mg PO QAM 30 days ferrous sulfate (Iron (ferrous sulfate)) 325 mg PO QAM furosemide (Lasix) 10 mg PO QAM glucagon 3 mg/actuation (Baqsimi) 3 mg intranasal ONCE insulin degludec (Tresiba FlexTouch U-200 insulin) 70 units (0.35 mL) subcut DAILY insulin lispro Inject 8-12 units prior to meals subcutaneously use as directed; insulin syringe-needle U-100 (BD Veo Insulin Syringe Ultra-Fine) 1 mL miscellaneous .3 times a day 90 days lancets (FreeStyle Lancets) 3 times a day lisinopril-hydrochlorothiazide 20-12.5 mg 2 tabs PO DAILY lorazepam 1-2 tabs. Max 2 tabs PO 2 times a day PRN; metformin ER 1,000 mg (2 x 500 mg) PO BID metoclopramide HCl 10 mg PO QIDACHS metoprolol tartrate 50 mg PO BID pantoprazole 40 mg PO BID pen needle, diabetic (BD Irais 2nd Gen Pen Needle) 5 times a day penicillin V potassium 500 mg PO BID 10 days rosuvastatin 40 mg PO BEDTIME 90 days semaglutide (Ozempic) 2 mg (0.75 mL) subcut QWEEK sennosides (senna) 17.2 mg (2 x 8.6 mg) PO BEDTIME PRN sucralfate (Carafate) 20 mL PO DAILY tramadol 50 mg PO DAILY PRN venlafaxine ER 150 mg PO QAM zolpidem 10 mg PO BEDTIME PRN HPI Comments Details: 64-year-old female patient returning for follow-up examination after developing pain and redness at the biopsy site in the right axilla. She was noted to have a palpable mass in the right axilla which was confirmed on diagnostic mammogram and ultrasound on 03/15/2024. She subsequently underwent ultrasound-guided core biopsy on 04/12/2024 at [facility]. Pathology revealed fragments of benign squamous epithelium and keratinized material, consistent with an epidermal inclusion cyst. No malignancy was identified. Since this time she developed redness and swelling at the biopsy site. We had previously talked about excision of this lesion however she wished to avoid surgery at this time. Following the procedure she did fall and now has pain in the right shoulder. She was unable to raise her hand over her head. She has not sought medical attention regarding this. [facility] Medical History Colon cancer screening Upper abdominal pain Nausea and vomiting Diarrhea skilled nursing current use of insulin Obesity with body mass index of 30.0-39.9 Hypoglycemia associated with type 2 diabetes mellitus Diabetes type 2, uncontrolled Heart murmur COVID-19 vaccine administered Diabetic neuropathy associated with type 2 diabetes mellitus Background diabetic retinopathy associated with type 2 diabetes mellitus PATRICIA (obstructive sleep apnea) Hemorrhoids Asthma Type 2 diabetes mellitus with mild nonproliferative diabetic retinopathy without macular edema, bilateral Type 2 diabetes mellitus with hyperglycemia, with long-term current use of insulin Essential hypertension Dyslipidemia Menometrorrhagia Polypharmacy Depression Allergic rhinitis Venous insufficiency Anemia Obesity Constipation HTN (hypertension) Surgical History History of esophagogastroduodenoscopy (EGD) Hx of colonoscopy History of bilateral tubal ligation Family History Father No problems noted. Mother Heart disease HTN (hypertension) Diabetes Pacemaker Depression Family/Other Diabetes Daughter Cancer Social History Household Members: None Are you a primary career development specialist to a significant other at home: No Do you presently have visiting nurse or other home services: No Alcohol intake: never Patient Tobacco Use Status: Never used Tobacco Sexual orientation: Straight/Heterosexual Gender identity: Female Female Reproductive History Menstrual Age of Menarche: 10 Review of Systems Const All systems reviewed & are unremarkable except as noted in HPI and below Physical Exam Const General: cooperative and no acute distress Nutritional Appearance: well nourished Orientation/consciousness: patient oriented x3 Limitations: no limitations HEENT Head: Yes normocephalic and Yes atraumatic Ears: hearing grossly normal bilaterally Chest Other: Breast exam deferred. Exam limited to right axilla. Area of biopsy in the right axilla reveals an open wound with erythema in the surrounding skin. There was also evidence of an enlarged lymph node in the right axilla, tender to palpation in most consistent with a reactive lymph node. There was no evidence of an abscess at either site. Resp Effort & Inspection: normal respiratory effort, no audible wheezes, no cough and no respiratory distress Cardio Jugular venous distension: no JVD GI Inspection: Yes normal to inspection Skin Other: Warm, dry, no rash Neuro General: patient oriented x3 Extrem General: Yes no clubbing, cyanosis or edema Assessment & Plan Assessment & Plan (1) Infected sebaceous cyst: Code(s): L72.3 - Sebaceous cyst; L08.9 - Local infection of the skin and subcutaneous tissue, unspecified Category: Medical Plan We again discussed excision of this epidermal inclusion cyst of the right axilla. Given the patient's injury to the right shoulder surgery may be difficult and uncomfortable. I recommended starting with antibiotics at this time which hopefully will reduce the erythema and tenderness. I also suggested she discuss her shoulder injury with her primary care doctor. She may benefit from physical therapy and/or orthopedic evaluation. She expressed understanding and agrees with the plan. A follow-up appointment in 2 weeks has been scheduled. Medications: New doxycycline hyclate 100 mg PO BID 20 tabs 0RF L08.9 - Local infection of the skin and subcutaneous tissue, unspecified, L72.3 - Sebaceous cyst Coding Level of Care Code Est Pt Level 3 (14359) Diagnoses Infected sebaceous cyst L72.3; L08.9
[2024-05-18 10:32] VITALS: BP 122/62; BMI 28.0
== END 2024-05-18 10:36 | disposition home or self-care (01) ==
LOC: HO.HGS 10:08
PROVIDERS: PCP Family Medicine; Visit Provider Surgery
DX: L72.3 Sebaceous cyst (principal); L08.9 Local infection of the skin and subcutaneous tissue, unspecified
CPT/HCPCS: 99213

== ENCOUNTER → 2024-05-18 10:08 | Outpatient (BNVA) | payer OTHER, SELFPAY | PROVIDERS: PCP Family Medicine; Visit Provider Surgery | DX: L72.3 Sebaceous cyst (principal); L08.9 Local infection of the skin and subcutaneous tissue, unspecified | CPT/HCPCS: 99212 ==

== ENCOUNTER 2024-05-24 10:09 | Outpatient (REF) | payer OTHER, SELFPAY ==
--- NOTE | ~2024-05-24 | XR_ITS ---
EXAMINATION: XR SHOULDER 2 OR MORE VIEWS RIGHT HISTORY: fall COMPARISON: Comparison is made with the prior examination dated 06/10/2018. FINDINGS: Four views of the right shoulder are submitted. Osseous mineralization is normal. There is no fracture or dislocation. The glenohumeral and acromioclavicular joint spaces are preserved. The soft tissues are unremarkable. XR/XR shoulder RT min 2V IMPRESSION: Unremarkable examination of the right shoulder. Electronically signed by: Samuel Graff MD 05/24/2024 10:37 AM EDT
--- OUTSIDE RECORDS SUMMARY | 2024-05-24 11:44 | XMS_ITS | Encounter Summary ---
Author Organization [employer] Address [address] [facility] 7t [place] [address] Care Team Providers Care Rn Er Name Role Phone Neyda Chacko MD Primary Care Provider [phone] Encounter Details Date Type Department Care Team (Late st Contact Info) Description 03/12/2022 Abstract [facility] MEDICINE [address] [place], [place] [phone] Neyda Chacko MD [address] [place], [place] [phone] Social History Tobacco Use Types Packs/Day Years [...] documented as of this encounter Care Teams Rn Er Relationship Specialty Start Date End Date Neyda Chacko MD [address] [place] [address] PCP - General Family Medicine 02/22/18 documented as of this encounter
--- OUTSIDE RECORDS SUMMARY | 2024-05-24 11:44 | XMS_ITS | Encounter Summary ---
Author Organization [employer] Address [address] [facility] 7t [place] [address] Care Team Providers Care Container Repairer Name Role Phone Neyda Chacko MD Primary Care Provider [phone] Encounter Details Date Type Department Care Team ([facility] st Contact Info) Description 03/10/2022 Telephone [facility] MEDICINE [address] [place], [place] [phone] Neyda Chacko MD 230 [place], [place] [phone] Social History Tobacco Use Types Packs/Day Years [...] on filedocumented in this encounter Care Teams Container Repairer Relationship Specialty Start Date End Date Neyda Chacko MD [address] [place] [address] PCP - General Family Medicine 02/22/18 documented as of this encounter
--- OUTSIDE RECORDS SUMMARY | 2024-05-24 11:44 | XMS_ITS | Encounter Summary ---
Author Organization [employer] Address [address] [facility] 7t [place] [address] Care Team Providers Care Rover Tender Name Role Phone Neyda Chacko MD Primary Care Provider [phone] Reason for Visit * Reason Onset Date Comments Durable Medical Equipment 01/26/2023 Encounter Details Date Type Department Care Team (Late st Contact Info) Description 01/26/2023 Telephone [facility] MEDICINE [address] [place], [place] [phone] Neyda Chacko MD [address] [place], [place] [phone] Durable Medical Equipment Social History Tobacco Use [...] readings would like the patient to use [employer] Joelle 2 System documented in this encounter Plan of Treatment Not on file documented as of this encounter Visit Diagnoses Not on filedocumented in this encounter Additional Health Concerns Assessment Noted Time PHQ-9 Depression Total Score: 5 03/12/19 23 10:44 AM EST documented as of this encounter Care Teams Rover Tender Relationship Specialty Start Date End Date Neyda Chacko MD [address] [place] [address] PCP - General Family Medicine 02/22/18 documented as of this encounter
--- OUTSIDE RECORDS SUMMARY | 2024-05-24 11:44 | XMS_ITS | Encounter Summary ---
Author Organization [employer] Address [address] [facility] 7t [place] [address] Care Team Providers Care Fitter Helper Name Role Phone Neyda Chacko MD Primary Care Provider [phone] Encounter Details Date Type Department Care Team ([facility] st Contact Info) Description 12/16/2023 Orders Only [facility] MEDICINE [address] [place], [place] [phone] Neyda Chacko MD 230 [place], [place] [phone] Leukopenia, unspecified type (Primary Dx) Social History [...] EDT) Pathologist Review - CBC SEE NOTE [facility] Comment:Peripheral blood joshua ments are normal appearing.- Yash Moreno M.D. Pathology Blood Venous blood specimen / Unknown 12/17/2023 12:02 PM EDT 12/17/2023 1:19 PM EDT us Neyda Chacko MD LAB BLOOD ORDERABLES Final Resul t [facility] [address] [place] [address] [phone] * (ABNORMAL) CBC auto differential (12/17/2023 12:02 PM EDT) White Blood Count 3.7(L) 4.8 - 10.8 X10*3/uL [facility] Red Blood Count 4.47 4.20 - 5.50 X10*6/uL [facility] Hemoglobin 13.0 12.0 - 16.0 g/dl [facility] Hematocrit 38.4 37.0 - 47.0 % [facility] Mean Corpuscular Volume 85.9 80.0 - 98.0 fL [facility] Mean Corpuscular Hemoglobin 29.1 27.0 - 33.0 pg [facility] Mean Corpuscular HGB Conc 33.9 31.0 - 35.0 g/dl [facility] Red Cell Distribution Width 11.9 11.0 - 16.0 % [facility] Platelet Count 209 160 - 400 X10*3/uL [facility] Mean Platelet Volume 9.7 9.4 - 12.3 fL [facility] Neutrophils Percent Auto 55.4 45 - 73 % [facility] Imm Gran Pct Auto 0.3 0.0 - 0.4 % [facility] Lymphocytes Percent Auto 33.4 20 - 40 % [facility] Monocytes Percent Auto 8.0 2 - 11 % [facility] Eosinophils Percent Auto 2.4 0 - 4 % [facility] Basophils Percent Auto 0.5 0 - 2 % [facility] NRBC Pct Auto 0.0 0.0 - 0.2 /100WBC [facility] Neutrophils Absolute Auto 2.1 2.0 - 8.3 x10*3/uL [facility] Imm Gran Abs Auto 0.01 0.00 - 0.03 X10*3/uL [facility] Lymphocytes Absolute Auto 1.3 1.2 - 4.9 X10*3/uL [facility] Monocytes Absolute Auto 0.3 0.1 - 1.2 X10*3/uL [facility] Eosinophils Absolute Auto 0.1 0.0 - 0.4 X10*3/uL [facility] Basophils Absolute Auto 0.0 0.0 - 0.2 X10*3/uL [facility] NRBC Abs Auto 0.000 0.0 - 0.012 X10*3/uL [facility] Blood Venous blood specimen / Unknown 12/17/2023 12:02 PM EDT 12/17/2023 1:19 PM EDT Neyda Chacko MD LAB BLOOD ORDERABLES Final Resul t [facility] [address] [place] [address] [phone] documented in this encounter Visit Diagnoses Diagnosis Leukopenia, unspecified type- Primary documented in this encounter Additional Health Concerns Assessment Noted Time PHQ-9 Depression Total Score: 7 06/15/19 24 10:57 AM EDT documented as of this encounter Care Teams Fitter Helper Relationship Specialty Start Date End Date Neyda Chacko MD [address] [place] [phone] PCP - General Family Medicine 02/22/18 documented as of this encounter
--- OUTSIDE RECORDS SUMMARY | 2024-05-24 11:44 | XMS_ITS | Encounter Summary ---
Author Organization [employer] Address [address] [facility] 7t [place] [address] Care Team Providers Care Clinic Physician Director Name Role Phone Neyda Chacko MD Primary Care Provider [phone] Encounter Details Date Type Department Care Team (Late st Contact Info) Description 03/06/2022 Orders Only [facility] MEDICINE [address] [place], [place] [phone] Misa Tillman LPN Social History Tobacco Use [...] on filedocumented in this encounter Care Teams Clinic Physician Director Relationship Specialty Start Date End Date Neyda Chacko MD 230 [place] [address] PCP - General Family Medicine 02/22/18 documented as of this encounter
--- OUTSIDE RECORDS SUMMARY | 2024-05-24 11:44 | XMS_ITS | Encounter Summary ---
Author Organization [employer] Address 75 [facility] 7t [place] [address] Care Team Providers Care Derrick Barge Operator Name Role Phone Neyda Chacko MD Primary Care Provider [phone] Encounter Details Date Type Department Care Team (Latest Contact Info) Description 01/03/2019 Abstract [facility] Dental, Provider, DDS Social History Tobacco [...] on filedocumented in this encounter Care Teams Derrick Barge Operator Relationship Specialty Start Date End Date Neyda Chacko MD [address] [place] [id number] PCP - General Family Medicine 02/22/18 documented as of this encounter
--- OUTSIDE RECORDS SUMMARY | 2024-05-24 11:44 | XMS_ITS | Encounter Summary ---
Author Organization [employer] Address 75 [facility] 7t [place] [address] Care Team Providers Care Clinical Review Specialist Name Role Phone Neyda Chacko MD Primary Care Provider [phone] Encounter Details Date Type Department Care Team (Late st Contact Info) Description 01/26/2023 Orders Only [facility] MEDICINE 230 [place], [place] [phone] Neyda Chacko MD 230 [place], [place] [phone] Social History Tobacco Use Types Packs/Day Years [...] documented as of this encounter Care Teams Clinical Review Specialist Relationship Specialty Start Date End Date Neyda Chacko MD [address] [place] [address] PCP - General Family Medicine 02/22/18 documented as of this encounter
--- OUTSIDE RECORDS SUMMARY | 2024-05-24 11:44 | XMS_ITS | Encounter Summary ---
Author Organization [employer] Address 75 [facility] 7t [place] [address] Care Team Providers Care Verifying Specialist Name Role Phone Neyda Chacko MD Primary Care Provider [phone] Reason for Visit * Reason Onset Date Comments Appointment Request 02/19/2023 Encounter Details Date Type Department Care Team ([facility] st Contact Info) Description 02/19/2023 Telephone [facility] MEDICINE 230 [place], [place] [phone] Neyda Chacko MD [address] [place], [place] [phone] Appointment Request Social History Tobacco Use Types [...] daughter requesting to reschedule appt for 02/19 [facility] CDTM HTN *IP* documented in this encounter Plan of Treatment Not on file documented as of this encounter Visit Diagnoses Not on filedocumented in this encounter Additional Health Concerns Assessment Noted Time PHQ-9 Depression Total Score: 5 03/12/19 23 10:44 AM EST documented as of this encounter Care Teams Verifying Specialist Relationship Specialty Start Date End Date Neyda Chacko MD [address] [place] [id number] PCP - General Family Medicine 02/22/18 documented as of this encounter
--- OUTSIDE RECORDS SUMMARY | 2024-05-24 11:44 | XMS_ITS | Encounter Summary ---
Author Organization [employer] Address 75 [facility] 7t [place] [address] Care Team Providers Care Plaster Foreman Name Role Phone Neyda Chacko MD Primary Care Provider [phone] Encounter Details Date Type Department Care Team [...] filedocumented in this encounter Care Teams Plaster Foreman Relationship Specialty Start Date End Date Neyda Chacko MD [address] [place] [address] PCP - General Family Medicine 02/22/18 documented as of this encounter
--- OUTSIDE RECORDS SUMMARY | 2024-05-24 11:44 | XMS_ITS | Clinical Summary ---
Author Organization 175 [facility] Address [address] [place] [address] Phone Care Team Providers Care Fence Gate Assembler Name Role Phone Physician, Pcp Unknown Primary Care Provider Heena vailable Allergies No known active allergies Medications clotrimazole (LOTRIMIN) 1 % cream Apply topically 2 (two) times a day. Nails and skin 30 g 3 05/05/19 25 Encounters Date Type Department Care Team Description 04/04/2024 10:00 AM EST Office Visit Orthopedic Surgery [facility] [address] [address] Alan Crisostomo, DPM Metatarsalgia of both feet [...] AM EDT Office Visit Orthopedic Surgery - [place] 250 175 [facility] 250 [place] [address] Alan Crisostomo, DPM [address] [address] Health Maintenance Due Date Last Done Comments Breast Cancer Screening 1958 Diabetes: Annual GFR (Glomerular Filtration Rate) 1958 Diabetes: Annual Foot Exam 1968 Diabetes: Annual Retina Eye Exam 1968 Hepatitis A Vaccines (1 of 2 - Risk 2-dose series) 1977 RSV Immunization Adult Patients (1 - Risk 60-74 years 1-dose series) [...] patient's age to complete this topic Insurance , [address] [id number] [employer] Member Subscriber Plan / Payer (Ef fective 2024-Present) Name:Jaimee Guzman I Relation to Subscriber:Self Name:Jaimee Guzman I Payer ID:[id number] Group ID:Not on file Type:Not on file Address: [facility] [address] [address] Care Teams Fence Gate Assembler Relationship Specialty Start Date End Date Physician, Pcp Unknown PCP - General 03/20/24
--- OUTSIDE RECORDS SUMMARY | 2024-05-24 11:44 | XMS_ITS | Encounter Summary ---
Author Organization [employer] Address [address] [place] [address] 7t [place] [address] Care Team Providers Care Curtain Cleaner Name Role Phone Neyda Chacko MD Primary Care Provider [phone] Reason for Visit * Reason Comments Med Refill Encounter Details Date Type Department Care Team (Late st Contact Info) Description 01/28/2022 Refill [facility] MEDICINE [address] [place] [address] [facility] [address] [place] [address] Type 2 diabetes mellitus with hyperglycemia (CMS/HCC) [...] (CMS/HCC) documented in this encounter Care Teams Curtain Cleaner Relationship Specialty Start Date End Date Neyda Chacko MD 230 [place], [place] [phone] PCP - General Family Medicine 02/22/18 documented as of this encounter
--- OUTSIDE RECORDS SUMMARY | 2024-05-24 11:44 | XMS_ITS | Encounter Summary ---
Author Organization [employer] Address 75 [facility] 7t [place] [address] Care Team Providers Care Head Librarian Name Role Phone Neyda Chacko MD Primary Care Provider [phone] Reason for Visit * Reason Onset Date Comments Nurse Triage 05/19/2024 Encounter Details Date Type Department Care Team (Late st Contact Info) Description 05/19/2024 Telephone [facility] MEDICINE 230 [place], [place] [phone] Neyda Chacko MD 230 [place], [place] [phone] Nurse Triage Social History Tobacco Use Types Packs/Day Years [...] encounter Miscellaneous Notes * Telephone Encounter - Miladys Canales RN - 05/19/2024 1:19 PM EDT Called pt. Daughter. Daughter states that pt. Was cleaning her apartment and tripped and fell x 2-3days ago. Pt hit her right arm/shoulder and there is a purple bruise. Pt. Did not hit head and no loss of consciousness. Pt. Went to [facility] to general surgeon for a biopsy x 2-3 weeks ago and at that time pt. Was having trouble lifting arm then and surgeon had suggested she get it checked out back then. Pt does not like to go to [facility] according to daughter because pt. Spouse there and it causes her sadness. I advised that [facility] walk in is open tomorrow 05/20/24 from 9-1230pm and also on Wednesday05/22/24 from 830am - 730pm but going when they first open is optimal to get seen sooner. Pt. Will continue her Tylenol extra strength and apply cold/heat to area in meantime until she comes to be seen at [facility]. Protocol Used: Shoulder Pain (Adult) Protocol-Based Disposition: See in Office or Video Visit within 3 Days- Pt. Daughter will bring pt.To [facility] walk in. Video visit offer not recorded Positive Triage Questions: * Moderate pain (e.g., interferes with normal activities) and present > 3 days * Shoulder pain is a chronic symptom (recurrent or ongoing AND present > 4 weeks) * All higher-acuity triage questions were negative Care Advice Discussed: * Reassurance and Education - Shoulder Pain * Pain Medicines * Use Heat After 48 Hours for Pain * Heat to Area (Shower Option) * Rest vs. Movement * Telephone Encounter - Nazia Rodriguez - 05/19/2024 12:01 PM EDT Symptom: Fall Outcome: Schedule an appointment to be seen within 24 hours Reason: Caller denied all higher acuity questions The caller accepted this outcome. Please contact pt daughter [phone] documented in this encounter Plan of Treatment Not on file documented as of this encounter Visit Diagnoses Not on filedocumented in this encounter Additional Health Concerns Assessment Noted Time PHQ-9 Depression Total Score: 7 06/15/19 24 10:57 AM EDT documented as of this encounter Care Teams Head Librarian Relationship Specialty Start Date End Date Neyda Chacko MD [address] [place] [address] PCP - General Family Medicine 02/22/18 documented as of this encounter
--- OUTSIDE RECORDS SUMMARY | 2024-05-24 11:45 | XMS_ITS | Encounter Summary ---
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 Phone Neyda Chacko MD Primary Care Provider [phone] Reason for Referral * Consultation (Routine) - Authorized Specialty Diagnoses / Procedures Referred By Rob hagan Referred To Contact Orthopaedic Surgery Diagnoses Chronic right shoulder pain Neyda Chacko MD [address] [place] [id number] Phone: tel: fax: [facility] [address] [place] [address] Phone: tel: Referral ID Status Reason Start Date Expiration Date Visits Requested Visits Authorized [id number] Authorized Specialty Services Required 05/20/2024 05/20/2025 1 1 * Consultation (Routine) - Closed Specialty Diagnoses / Procedures Referred By Rob t Referred To Contact Physical Therapy Diagnoses Chronic right shoulder pain Neyda Chacko MD [address] [place] [address] Phone: tel: fax: [facility] [address] [place] [address] Phone: tel: fax: Referral ID Status Reason Start Date Expiration Date V isits Requested Visits Authorized [id number] Closed Specialty Services Required 05/20/2024 05/20/2025 1 1 Encounter Details Date Type Department Care Team (Late st Contact Info) Description 05/20/2024 Orders Only [facility] [address] [facility] [place] [address] Neyda Chacko MD [address] [facility] [place] [address] Chronic right shoulder pain (Primary Dx) Social History Tobacco Use Types [...] as of this encounter Miscellaneous Notes * Assessment & Plan Note - Neyda Chacko MD - 05/20/2024 11:40 PM EDTAssociated Problem(s): Chronic right shoulder pain - seen by Dr. 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 Excisional biopsy is difficult due to current shoulder pain. Recommended PT / Ortho referral. - evaluate with X-ray - refer to PT and / or Ortho documented in this encounter Plan of Treatment Scheduled Orders Name Type Priority Associated Diagnoses Orde r Schedule XR Shoulder 2+ Views Right Imaging Routine Chronic right shoulder pain Expected: 05/20/2024, Expires: 05/20/2025 Scheduled Referrals Name Type Priority Associated Diagnoses Order Schedule Referral to Physical Therapy Outpatient Referral Routine Chronic right shoulder pain Expected: 05/20/2024 (Approximate), Expires: 05/20/2025 Referral to Orthopaedic Surgery Outpatient Referral Routine Chronic right shoulder pain Expected: 05/20/2024 (Approximate), Expires: 05/20/2025 documented as of this encounter Visit Diagnoses Diagnosis Chronic right shoulder pain- Primary Pain in joint, shoulder region documented in this encounter Additional Health Concerns Assessment Noted Time PHQ-9 Depression Total Score: 7 06/15/19 24 10:57 AM EDT documented as of this encounter 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
--- OUTSIDE RECORDS SUMMARY | 2024-05-24 11:45 | XMS_ITS | Encounter Summary ---
Author Organization [employer] Address [address] [facility] [address] [place] [address] Care Team Providers Care Heel Wheeler Name Role Phone Neyda Chacko MD Primary Care Provider [phone] Reason for Visit * Reason Onset Date Comments Med Refill 10/27/2023 Encounter Details Date Type Department Care Team (Late st Contact Info) Description 10/27/2023 Telephone [facility] [address] [place], [place] [phone] Neyda Chacko MD [address] [place], [place] [phone] Med Refill Social History Tobacco Use Types [...] MG/3ML solution pen-injector To be sent to: [facility] - [place], [place] - [address] [facility] documented in this encounter Plan of Treatment Not on file documented as of this encounter Visit Diagnoses Not on filedocumented in this encounter Additional Health Concerns Assessment Noted Time PHQ-9 Depression Total Score: 7 06/15/19 24 10:57 AM EDT documented as of this encounter Care Teams Heel Wheeler Relationship Specialty Start Date End Date Neyda Chacko MD [address] [place] [address] PCP - General Family Medicine 02/22/18 documented as of this encounter
--- OUTSIDE RECORDS SUMMARY | 2024-05-24 11:45 | XMS_ITS | Clinical Summary ---
Author Organization [employer] Address [address] [facility] [address] [place] [address] Care Team Providers Care Carbon Setter Name Role Phone Neyda Chacko MD Primary Care Provider [phone] Allergies Active Allergy Reactions Criticality Noted Date Comments Pioglitazone 03/14/2010 Other reaction(s): unspecified Medications Blood Glucose Monitoring Suppl ([facility] [place] Lite) w/Device kit USE DIRECTED Active busPIRone [...] needed at bedtime. Active Continuous Blood Gluc Apprentice Embalmer (FreeStyle Joelle 2 [place]) device Use as directed 1 each 1 [...] hyperglycemia, with long-term current use of insulin (CMS/[facility]) USE UP TO FIVE TIMES DAILY TO TEST BLOOD SUGAR 100 each 024 Active FREESTYLE LITE test stripIndication s:Type 2 [...] THE EVENING WITH MEALS 180 tablet 3 Active rosuvastatin (Crestor) 40 MG tabletIndicatio ns:Dyslipidemia TAKE 1 TABLET BY MOUTH AT BEDTIME 90 tablet 3 024 Active D3 Super Strength 50 MCG (1999 [place]) capsuleIndicati ons:Vitamin D deficiency TAKE 1 CAPSULE BY MOUTH EVERY MORNING 90 capsule 3 024 Active metFORMIN XR (Glucophage-XR) 500 MG 24 hr tablet TAKE 2 TABLETS BY MOUTH TWICE DAILY IN THE MORNING AND EVENING 360 tablet 3 024 Active Jardiance 25 MGIndications:T ype 2 diabetes mellitus with hyperglycemia, with long-term current use of insulin ([facility]) TAKE 1 TABLET BY MOUTH EVERY MORNING [...] hyperglycemia, with long-term current use of insulin ([facility]/HCC) USE THREE TO FOUR TIMES DAILY WITH humalog 120 each 11 025 Active Ozempic, 2 MG/DOSE, 8 MG/3ML solution pen-injectorInd ications:Type 2 diabetes mellitus with hyperglycemia, with long-term current use of insulin ([facility]) Inject 2 MG SUBCUTANEOUSLY EVERY 7 DAYS IN THE ABDOMEN, THIGHS OR UPPER ARM. ROTATE INJECTION SITES. 3 mL 1 025 Active cilostazol (Pletal) 50 MG tabletIndicatio ns:Peripheral arterial occlusive disease (CMS/HCC) TAKE 1 TABLET BY MOUTH TWICE DAILY IN THE MORNING AND IN THE EVENING 30 MINUTOS ANTES O 2 HORAS DESPUES DEL DESAYUNO Y LA SHANTHI 60 tablet 5 025 Active lisinopril-hydr oCHLOROthiazide 20-12.5 MG tablet TAKE 2 TABLETS BY MOUTH ONCE DAILY AT NOON 180 tablet 3 025 Active baclofen (Lioresal) 10 MG tabletIndicatio ns:Acute pain of right shoulder Take one tablet TID PRN 30 tablet 025 Active acetaminophen (Tylenol) 500 MG tabletIndicatio ns:Acute pain of right shoulder Take 2 tablets (1,000 mg) by mouth every 6 (six) hours if needed for mild pain for up to 14 days. 112 tablet 025 2024 Active Diclofenac Sodium 1 % gelIndications: Acute pain of right shoulder Apply 1 g topically if needed in the morning, at noon, and at bedtime (pain). 100 g 1 025 2024 Active lisinopril-hydr oCHLOROthiazide 20-12.5 MG tablet TAKE 2 TABLETS BY MOUTH ONCE DAILY AT NOON 180 tablet 3 024 2024 Discontinued acetaminophen (Tylenol) 500 MG tablet Take 1 tablet (500 mg) by mouth every 6 (six) hours if needed for mild pain for up to 20 doses. 20 tablet 024 2024 Discontinued(R eorder (will not trigger notification to Pharmacy)) Active Problems Problem Noted Date Diagnosed Date Chronic right shoulder pain 05/20/2024 Assessment & Plan (05/20/2024 11:40 PM EDT): - seen by Dr. 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 Excisional biopsy is difficult due to current shoulder pain. Recommended PT / Ortho referral. - evaluate with X-ray - refer to PT and / or Ortho Mass of axillary tail of right breast [...] elastography - FIB4 index 1.51 - GI: C - continue working on lifestyle modifications - [...] GLP-1 agonist for DM -followed by [facility] GI, last seen in June 2023 -continue metoclopramide 10 mg tid, with caution due to its side effect Assessment & Plan (05/24/2022 3:57 PM EDT): -on GLP-1 agonist for DM -seen by GI on 03/19/22, restarted on metoclopramide -continue metoclopramide 10 mg tid Peripheral arterial occlusive disease 08/13/2016 Assessment & Plan (04/04/2024 11:42 AM EST): -Followed by [facility] provider -most recent PAWAN doppler on 08/13/21, moderate stenosis in b/l SFA and popliteal arteries -continue working on risk factor management -pt has been on cilostazol since 2017 - Ordered VASC US Lower Extremity Venous Insufficiency Bilateral - Ordered Vascular US lower extremity arterial duplex bilateral with VEENA Assessment & Plan (06/15/2023 11:00 AM EDT): -Followed by [facility] provider -most recent PAWAN doppler on 08/13/21, moderate stenosis in b/l SFA and popliteal arteries -continue working on risk factor management -pt has been on cilostazol since 2017 Assessment & Plan (10/19/2022 6:00 AM EDT): -[facility] -most recent PAWAN doppler on 08/13/21, moderate stenosis in b/l SFA and popliteal arteries -continue working on risk factor management -pt has been on cilostazol since 2017 Assessment & Plan (05/24/2022 3:54 PM EDT): -Followed by [facility] provider -most recent PAWAN doppler on 08/13/21, moderate stenosis in b/l SFA and popliteal arteries -continue working on risk factor management -pt has been on cilostazol since 2017 Assessment & Plan (03/15/2022 5:49 PM EST): -Followed by [facility] provider -most recent PAWAN doppler on 08/13/21, moderate stenosis in b/l SFA and popliteal arteries -continue working on risk factor management -pt has been on cilostazol since 2017 Hemorrhoids 07/01/2015 Chronic recurrent major depressive disorder 02/23 Assessment & Plan (06/15/2023 11:01 AM EDT): [facility] provider: Olayinka Joiner Current medications: venlafaxine; buspirone; hydroxyzine Continue following recommendation by S providers Patient lost her in Jan 2020 due to COVID and has been grieving. Patient is currently with her family and seems to have good support. Continue current S. Assessment & Plan (10/19/2022 6:03 AM EDT): [facility] provider: Olayinka Joiner Current medications: venlafaxine; buspirone; hydroxyzine Continue following recommendation by S providers Patient lost her in Jan 2020 due to COVID and has been grieving. Patient is currently with her family and seems to have good support. Continue current S. Assessment & Plan (05/24/2022 4:01 PM EDT): [facility] provider: Olayinka Cortez Counseling Current medications: venlafaxine; buspirone; hydroxyzine Continue following recommendation by S providers Patient lost her in Jan 2020 due to COVID and has been grieving. Patient is currently with her family and seems to have good support. Continue current S. Assessment & Plan (03/15/2022 5:50 PM EST): [facility] provider: Olayinka Cortez Counseling Current medications: venlafaxine; buspirone; hydroxyzine Continue following recommendation by S providers Patient lost her in Jan 2020 due to COVID and has been grieving. Patient is currently with her family and seems to have good support. Continue current BHS. Gastroesophageal reflux disease 03/19/2015 Assessment & Plan [...] in May 2023. -[facility], last seen on 09/17/22 -Continue [...] in May 2023. -[facility], last seen on 09/17/22 -Continue [...] BB dose in May 2023. -Followed by [facility], last seen on 09/17/22 -Continue working on [...] <130/80 per ACC/AHA -BP slightly low. Her sewer pipe layer has suggested to taper down her diuretics since she had GSV ablation. -[facility], last seen on 09/17/22 -Continue [...] per ACC/AHA -BP within acceptable range. Her sewer pipe layer has suggested to taper down her diuretics since she had GSV ablation. -[facility], last seen on 09/17/22 -Continue [...] if she is hypotensive; will refer to CD for de-prescribing and HTN management -Follow up in 3 mo or sooner prn Assessment & Plan (05/24/2022 3:54 PM EDT): -Goal BP < 140/90 per JNC-8 and <130/80 per ACC/AHA -BP within acceptable range. Her sewer pipe layer has suggested to taper down her diuretics since she had GSV ablation. -[facility], last seen on 12/10/21 -Continue [...] per ACC/AHA -BP within acceptable range. Her sewer pipe layer has suggested to taper down her diuretics since she had GSV ablation. -[facility] on 12[facility]10[facility]21 -Continue current lifestyle [...] 7.9% on 12/21/23 -Previously following with [facility] endocrinology, discharged in May 2023 due to stability -Continue Tresiba 70 units qAM (discrepancy from care center manager's note) -Continue Humalog 10 units before breakfast, [...] 7.9% on 12/21/23 -Previously following with [facility] endocrinology, discharged in May 2023 due to stability -Continue Tresiba 70 units qAM (discrepancy from care center manager's note) -Continue Humalog 10 units before breakfast, [...] on 06/15/23, improving -Previously following with [facility] endocrinology, discharged in May 2023 due to stability -Continue Tresiba 70 units qAM (discrepancy from care center manager's note) -Continue Humalog 10 units before breakfast, [...] PM EDT): -A1C 7.2% on 06/15/23, improving -Dictating Machine Typist: [facility], last seen on Sep 2022 -Continue Tresiba 70 units qAM (discrepancy from care center manager's note) -Continue Humalog 10 units before breakfast, [...] yet with hypoglycemia. 8.6% in Feb 2022 -Dictating Machine Typist: [facility], last seen on Sep 2022 -Continue Tresiba 70 units qAM (discrepancy from care center manager's note) -Continue Humalog 10 units before breakfast, [...] PM EDT): -A1C 8.6% today 03/11/22, improving -Dictating Machine Typist: [facility], last seen on 02/13/22 -Continue Tresiba 70 units qAM (discrepancy from care center manager's note) -Continue Humalog 8 units before breakfast, [...] PM EST): -A1C 8.6% today 03/11/22, improving -Dictating Machine Typist: [facility], last seen on 02/13/22 -Continue Tresiba 70 units qAM (discrepancy from care center manager's note) -Continue Humalog 8 units before breakfast, [...] Encounters Date Type Department Care Team Description 05/24/2024 9:40 AM EDT Office Visit [facility] [address] [place] [phone] Dina Torres NP Acute pain of right shoulder (Primary Dx); Elevated blood pressure reading in office with diagnosis of hypertension 05/24/2024 Telephone [facility] [address] [place] [address] Dina Torres NP 05/22/2024 Telephone [facility] [address] [place] [phone] Suzette Cárdenas RN Referral; Imaging Orders 05/20/2024 Orders Only [address] [address] Neyda Chacko MD Chronic right shoulder pain (Primary Dx) 05/19/2024 Telephone [facility] [address] [place] [phone] Neyda Chacko MD Nurse Triage 05/18/2024 Refill [facility] [address] [place] [phone] Neyda Chacko MD 05/04/[address] [address] Neyda Chacko MD Nurse Triage 05/04/[address] [address] Neyda Chacko MD 04/15/2024 Refill [facility] [address] [place] [phone] Neyda Chacko MD Peripheral arterial occlusive disease ([facility]/HCC) 04/13/2024 Refill [facility] [address] [place], [place] [id number] Neyda Chacko MD Type 2 diabetes mellitus with hyperglycemia, with long-term current use of insulin ([facility]) 04/12/2024 Orders Only [facility] External Provider, [facility] 04/03/2024 Telephone [facility] [address] [place] [phone] Morena Mcneill, edi programmer Question 03/30/2024 11:00 AM EST Office Visit [address] [address] Neyda Chacko MD Type 2 diabetes mellitus with hyperglycemia, with long-term current use of insulin ([facility]) (Primary Dx); Essential hypertension; Mass of axillary tail of right breast; Transaminitis; Dyslipidemia; Metabolic dysfunction-associate d steatotic liver disease (MASLD); Peripheral venous insufficiency; Peripheral arterial occlusive disease (CMS/[facility]); Weight loss; Dietary counseling; Exercise counseling; Overweight 03/30/2024 Travel 03/28/[address] [address] Mariel Aragon [place] chart prep 03/19/[address] [address] Neyda Chacko MD Type 2 diabetes mellitus with hyperglycemia, with long-term current use of insulin ([facility]) 02/25/2024 Refill [facility] [address] [place] [address] Neyda Chacko MD Iron deficiency anemia, unspecified iron deficiency anemia type; Type 2 diabetes mellitus with hyperglycemia, with long-term current use of insulin ([facility]) 02/24/2024 Refill [facility] [address] [place] [address] Rosalia Ag DO Type 2 diabetes mellitus with hyperglycemia, with long-term current use of insulin ([facility]) from Last 3 Months Immunizations [...] Sign Reading Time Taken Comments Blood Pressure 145/76 05/24/2024 9:34 AM EDT Pulse 74 05/24/2024 9:34 AM EDT Temperature 36.6 ??C (97.9 ??F) 05/24/2024 9:34 AM ED T Respiratory Rate 16 05/24/2024 9:34 AM EDT Oxygen Saturation 98% 05/24/2024 9:34 AM EDT Inhaled Oxygen Concentration - - Weight 70.3 kg (155 lb) 05/24/2024 9:34 AM EDT Height 154.1 cm (5' 0.68 ) 12/21/2023 11:40 AM E DT Body Mass Index 29.6 12/21/2023 11:40 AM EDT Plan of Treatment [...] Alcohol/Substance Use Screening 12/20/2024 12/21/2023 Tobacco Screening 05/24/2025 05/24/2024 Colonoscopy 08/15/2025 08/15/2020 Colorectal Cancer Screening 08/15/2025 Mammogram 03/15/2026 03/15/2024, 02/23, 01/28/2022, Additional history exists DTaP/Tdap/Td Vaccines (3 - Td or Tdap) 08/08/2031 08/07/2021, 04/07/2011, 08/20/2005, Additional history exists Hepatitis B Vaccines Completed 10/02/2013, 07/03/2013, 07/19/2012 Cervical Cancer Screening Discontinued HPV/Cotest Discontinued 12/27/2019, 05/2019, 09/30/2017 Zoster Vaccines Completed 10/04/2020, 08/01/2020 [...] Procedure Name Priority Date/Time Associated Diagnosis Comments XR SHOULDER 2+ VIEWS RIGHT Routine 05/24/2024 10:09 AM EDT Acute pain of right shoulder VASC US LOWER EXTREMITY VENOUS DUPLEX BILATERAL Routine 05/03/2024 10:25 AM EDT US ABDOMEN COMPLETE WITH ELASTOGRAPHY Routine 05/03/2024 10:04 AM EDT Metabolic dysfunction-associ ated steatotic liver disease (MASLD) HEMATOXYLIN AND EOSIN STAIN Routine 04/12/2024 10:44 [...] with long-term current use of insulin (CMS/HCC) LIPID PANEL WITH REFLEX TO DIRECT LDL Routine 12/15/2023 11:00 AM EDT Type 2 diabetes mellitus with hyperglycemia, with long-term current use of insulin ([facility]) Dyslipidemia DIABETES EYE EXAM Routine 12/25/2022 PERIODIC ORAL EVALUATION - ESTABLISHED PATIENT Routine 03/31/2022 1:15 PM EST Full PROPHYLAXIS - ADULT Routine 03/31/2022 11:00 AM EST Dental plaque on multiple teeth BITEWINGS - 4 RADIOGRAPHIC IMAGES Routine 03/31/2022 11:00 AM EST Dental plaque on multiple teeth COLONOSCOPY Routine 08/15/2020 ZZZ HISTORICAL HPV E6/E7 RFLX LINDSAY 16 18/45 Routine 12/27/2019 1:40 PM EST from Last 3 Months or Most Recently Relevant to Health Maintenance Results * XR Shoulder 2+ Views Right (05/24/2024 10:09 AM EDT) Anatomical Region Laterality Modality Upper Extremities, Shoulder Right Radi ographic Imaging 05/24/2024 10:0 9 AM EDT Narrative 05/24/2024 10:41 AM EDT ?[facility] ?[address] ?[place] [address] ?XRay Report ? Signed ? Patient: Jaimee Guzman I ?MR#: [id number] ?? 2030 ? : 1960 ?Acct:[id number] ? Age/Sex: 64 / F ?ADM Date: 05/24/24 ? Loc: HO.HHCX ? Attending Dr: Dina Torres ? Ordering Physician: Dina Torres ?? Date of Service: 05/24/24 ?? Procedure(s): XR shoulder RT min 2V ?? Accession Number(s): [id number] ? cc: Dina Torres ? EXAMINATION: ??XR SHOULDER 2 OR MORE VIEWS RIGHT ? HISTORY: fall ? COMPARISON: Comparison is made with the prior examination dated ?? 06/10/2018. ? FINDINGS: ? Four views of the right shoulder are submitted. ??Osseous mineralization ?? is normal. ??There is no fracture or dislocation. ??The glenohumeral and ?? acromioclavicular joint spaces are preserved. ??The soft tissues are ?? unremarkable. ? XR/XR shoulder RT min 2V ?? IMPRESSION: ? Unremarkable examination of the right shoulder. ? Electronically signed by: ??Samuel Graff MD ??05/24/2024 10:37 AM EDT ?? RP ? Dictated By: ?Samuel Graff MD ? Signed By: ?<Electronically signed by Samuel Graff MD in OV> ?05/24/24 1037 ? DD/ 1009 ? TD/TT: 05/24/24 1022 ? Production Engineer: ? Procedure Note Abhishek Cowart - 05/24/[address] [address] XRay Report Signed Patient: Jaimee Guzman IMR#: [id number] 2030 : 9Acct:[id number] Age/Sex: 64 / FADM Date: 05/24/24 Loc: HO.HHCX Attending Dr: Dina Torres Ordering Physician: Dina Torres Date of Service: 05/24/24 Procedure(s): XR shoulder RT min 2V Accession Number(s): [id number] cc: Dina Torres EXAMINATION: XR SHOULDER 2 OR MORE VIEWS RIGHT HISTORY: fall COMPARISON: Comparison is made with the prior examination dated 06/10/2018. FINDINGS: Four views of the right shoulder are submitted. Osseous mineralization is normal. There is no fracture or dislocation. The glenohumeral and acromioclavicular joint spaces are preserved. The soft tissues are unremarkable. XR/XR shoulder RT min 2V IMPRESSION: Unremarkable examination of the right shoulder. Electronically signed by: Samuel Graff MD 05/24/2024 10:37 AM EDT Dictated By: Samuel Graff MD Signed By: <Electronically signed by Samuel Graff MD in OV> 05/24/24 1037 DD/ 1009 TD/TT: 05/24/24 1022 Production Engineer: Dina Torres FRONT OFFICE HELP IMG XR PROCEDURES Edited Result - Final * VASC US Lower Extremity Venous Duplex Bilateral (05/03/2024 10:25 AM EDT) 05/03/2024 10:2 5 AM EDT Narrative [facility] - 05/03/2024 12:27 PM EDT ? [facility] ?[address] ?[place] [address] ? Ultrasound Report ? Signed ? Patient: Guzman,Jaimee I ?MR#: [id number] ?? 2030 ? : 1960 ?Acct:[id number] ? Age/Sex: 64 / F ?ADM Date: 05/03/24 ? Loc: HO.US ? Attending Dr: Neyda Chacko MD ? Ordering Physician: Neyda Chacko MD ?? Date of Service: 05/03/24 ?? Procedure(s): US venous duplex LE BI ?? Accession Number(s): [id number] ? cc: Neyda Chacko MD ? EXAMINATION: ?? US LOWER EXTREMITY VENOUS (REFLUX EXAM), BILATERAL ? CLINICAL INFORMATION: ?? Varices. Prior venous procedure in the right lower extremity. ? COMPARISON: ?? DVT ultrasound dated April 30, 2013. ? TECHNIQUE: ?? Color flow triplex imaging and compression Doppler was performed to ?? evaluate both the deep and the superficial systems bilaterally. To ?? evaluate the superficial system, the examination was performed in the ?? upright position. Color-flow Doppler ultrasound and compression ?? ultrasound were utilized. In addition, maneuvers were utilized to ?? demonstrate reflux. ? FINDINGS: ? 1. DEEP VENOUS ULTRASOUND OF THE RIGHT LOWER EXTREMITY: ?? Common Femoral Vein: Compressible, normal respiratory variation and ?? augmented flow. ? Femoral Vein: Compressible, normal color flow and augmentation. ?? Popliteal Vein: Compressible, normal augmentation. ? Deep Reflux: There is no evidence of reflux in the deep system in ?? either the common femoral vein, superficial femoral or the popliteal ?? vein. ? There is no evidence of a Pinzon's cyst. ? 2. SUPERFICIAL ULTRASOUND WITH DOPPLER OF RIGHT LOWER EXTREMITY: ? GREAT SAPHENOUS VEIN: ?? Saphenofemoral Junction: 0.5 cm; Reflux: 0 ms ?? Proximal Thigh: 0.5 cm; Reflux: 0 ms ?? Mid Thigh: Not seen. ?? Distal Thigh: Not seen. ?? At Knee: 0.1 cm; Reflux: 0 ms ?? Proximal Calf: 0.1 cm; Reflux: 0 ms ?? Mid Calf: 0.2 cm; Reflux: 0 ms ?? Distal Calf: 0.2 cm; Reflux: 0 ms ? DUPLICATED MEDIAL GREAT SAPHENOUS VEIN: ?? Diameter: None imaged ?? Reflux: NA ? DUPLICATED LATERAL GREAT SAPHENOUS VEIN: ?? Diameter: 0.2 cm. ?? Reflux: NA ? SMALL SAPHENOUS VEIN: ?? Saphenopopliteal Junction: 0.2 cm; Reflux: 0 ms ?? Proximal: 0.2 cm; Reflux: 0 ms ?? Distal: 0.2 cm; Reflux: 0 ms ? VEIN OF GIACOMINI: ?? Size: NA ?? Reflux: NA ? PERFORATORS: ?? Location: Proximal and mid calf. Accessory saphenous vein, proximal ?? segment. ?? Size: 0.1-0.2 cm. ?? Reflux: NA ? VARICOSITIES: ?? Location: None imaged. ?? Size: NA ?? Reflux: NA ? 3. DEEP VENOUS ULTRASOUND OF THE LEFT LOWER EXTREMITY: ?? Common Femoral Vein: Compressible, normal respiratory variation and ?? augmented flow. ? Femoral Vein: Compressible, normal color flow and augmentation. ?? Popliteal Vein: Compressible, normal augmentation. ? Deep Reflux: There is no evidence of reflux in the deep system in ?? either the common femoral vein, superficial femoral or the popliteal ?? vein. ? There is no evidence of a Pinzon's cyst. ? 4. SUPERFICIAL ULTRASOUND WITH DOPPLER OF LEFT LOWER EXTREMITY: ? GREAT SAPHENOUS VEIN: ?? Saphenofemoral Junction: 0.6 cm; Reflux: 0 ms ?? Proximal Thigh: 0.3 cm; Reflux: 0 ms ?? Mid Thigh: Not seen. ?? Distal Thigh: Not seen. ?? At Knee: Not seen. ?? Proximal Calf: 0.1 cm; Reflux: 0 ms ?? Mid Calf: 0.1 cm; Reflux: 0 ms ?? Distal Calf: 0.1 cm; Reflux: 0 ms ? DUPLICATED MEDIAL GREAT SAPHENOUS VEIN: ?? Diameter: None imaged ?? Reflux: NA ? DUPLICATED LATERAL GREAT SAPHENOUS VEIN: ?? Diameter: None imaged. ?? Reflux: NA ? SMALL SAPHENOUS VEIN: ?? Saphenopopliteal Junction: 0.6 cm; Reflux: 0 ms ?? Proximal: 0.2 cm; Reflux: 0 ms ?? Distal: 0.1 cm; Reflux: 0 ms ? VEIN OF GIACOMINI: ?? Size: NA ?? Reflux: NA ? PERFORATORS: ?? Location: Great saphenous vein mid calf. ?? Size: 0.2 cm. ?? Reflux: NA ? VARICOSITIES: ?? Location: None Imaged ?? Size: NA ?? Reflux: NA ? US/US venous duplex LE BI ?? IMPRESSION: ?? Right: No venous insufficiency. Perforators in the proximal and mid ?? calf without reflux. ? Left: No venous insufficiency. Perforators in the mid calf, great ?? saphenous vein without reflux. ? Electronically signed by: ??Bhupendra Pratt MD ??05/03/2024 12:24 PM ?? EDT ? Dictated By: ?Bhupendra Armendariz MD ? Signed By: ?<Electronically signed by Bhupendra Cárdenas MD in OV> ? 05/03/24 1224 ? DD/ 1025 ? TD/TT: 05/03/24 1103 ? Production Engineer: ? Procedure Note Abhishek Cowart - 05/03/[address] [address] Ultrasound Report Signed Patient: Jaimee Guzman [facility]#: [id number] 2030 : 9Acct:[id number] Age/Sex: 64 / FADM Date: 05/03/24 Loc: HO.US Attending Dr: Neyda Chacko MD Ordering Physician: Neyda Chacko MD Date of Service: 05/03/24 Procedure(s): US venous duplex LE BI Accession Number(s): [id number] cc: Neyda Chacko MD EXAMINATION: US LOWER EXTREMITY VENOUS (REFLUX EXAM), BILATERAL CLINICAL INFORMATION: Varices. Prior venous procedure in the right lower extremity. COMPARISON: DVT ultrasound dated April 30, 2013. TECHNIQUE: Color flow triplex imaging and compression Doppler was performed to evaluate both the deep and the superficial systems bilaterally. To evaluate the superficial system, the examination was performed in the upright position. Color-flow Doppler ultrasound and compression ultrasound were utilized. In addition, maneuvers were utilized to demonstrate reflux. FINDINGS: 1. DEEP VENOUS ULTRASOUND OF THE RIGHT LOWER EXTREMITY: Common Femoral Vein: Compressible, normal respiratory variation and augmented flow. Femoral Vein: Compressible, normal color flow and augmentation. Popliteal Vein: Compressible, normal augmentation. Deep Reflux: There is no evidence of reflux in the deep system in either the common femoral vein, superficial femoral or the popliteal vein. There is no evidence of a Pinzon's cyst. 2. SUPERFICIAL ULTRASOUND WITH DOPPLER OF RIGHT LOWER EXTREMITY: GREAT SAPHENOUS VEIN: Saphenofemoral Junction: 0.5 cm; Reflux: 0 ms Proximal Thigh: 0.5 cm; Reflux: 0 ms Mid Thigh: Not seen. Distal Thigh: Not seen. At Knee: 0.1 cm; Reflux: 0 ms Proximal Calf: 0.1 cm; Reflux: 0 ms Mid Calf: 0.2 cm; Reflux: 0 ms Distal Calf: 0.2 cm; Reflux: 0 ms DUPLICATED MEDIAL GREAT SAPHENOUS VEIN: Diameter: None imaged Reflux: NA DUPLICATED LATERAL GREAT SAPHENOUS VEIN: Diameter: 0.2 cm. Reflux: NA SMALL SAPHENOUS VEIN: Saphenopopliteal Junction: 0.2 cm; Reflux: 0 ms Proximal: 0.2 cm; Reflux: 0 ms Distal: 0.2 cm; Reflux: 0 ms VEIN OF GIACOMINI: Size: NA Reflux: NA PERFORATORS: Location: Proximal and mid calf. Accessory saphenous vein, proximal segment. Size: 0.1-0.2 cm. Reflux: NA VARICOSITIES: Location: None imaged. Size: NA Reflux: NA 3. DEEP VENOUS ULTRASOUND OF THE LEFT LOWER EXTREMITY: Common Femoral Vein: Compressible, normal respiratory variation and augmented flow. Femoral Vein: Compressible, normal color flow and augmentation. Popliteal Vein: Compressible, normal augmentation. Deep Reflux: There is no evidence of reflux in the deep system in either the common femoral vein, superficial femoral or the popliteal vein. There is no evidence of a Pinzon's cyst. 4. SUPERFICIAL ULTRASOUND WITH DOPPLER OF LEFT LOWER EXTREMITY: GREAT SAPHENOUS VEIN: Saphenofemoral Junction: 0.6 cm; Reflux: 0 ms Proximal Thigh: 0.3 cm; Reflux: 0 ms Mid Thigh: Not seen. Distal Thigh: Not seen. At Knee: Not seen. Proximal Calf: 0.1 cm; Reflux: 0 ms Mid Calf: 0.1 cm; Reflux: 0 ms Distal Calf: 0.1 cm; Reflux: 0 ms DUPLICATED MEDIAL GREAT SAPHENOUS VEIN: Diameter: None imaged Reflux: NA DUPLICATED LATERAL GREAT SAPHENOUS VEIN: Diameter: None imaged. Reflux: NA SMALL SAPHENOUS VEIN: Saphenopopliteal Junction: 0.6 cm; Reflux: 0 ms Proximal: 0.2 cm; Reflux: 0 ms Distal: 0.1 cm; Reflux: 0 ms VEIN OF GIACOMINI: Size: NA Reflux: NA PERFORATORS: Location: Great saphenous vein mid calf. Size: 0.2 cm. Reflux: NA VARICOSITIES: Location: None Imaged Size: NA Reflux: NA US/US venous duplex LE BI IMPRESSION: Right: No venous insufficiency. Perforators in the proximal and mid calf without reflux. Left: No venous insufficiency. Perforators in the mid calf, great saphenous vein without reflux. Electronically signed by: Bhupendra Pratt MD 05/03/2024 12:24 PM EDT RP Dictated By: Bhupendra Armendariz MD Signed By: <Electronically signed by Bhupendra Cárdenas MDin OV> 05/03/24 1224 DD/ 1025 TD/TT: 05/03/24 1103 Production Engineer: us Neyda Chacko MD CV VASCULAR PROCEDURES Final Res ult [facility] [address] [place] [phone] * US Abdomen Comp w elastography (05/03/2024 10:04 AM EDT) Anatomical Region Laterality Modality Abdomen Ultrasound 05/03/2024 10:0 4 AM EDT Narrative 05/03/2024 12:23 PM EDT ? [facility] ?[address] ?[place] [address] ? Ultrasound Report ? Signed ? Patient: Guzman,Jaimee I ?MR#: [id number] ?? 2030 ? : 1960 ?Acct:[id number] ? Age/Sex: 64 / F ?ADM Date: 05/03/24 ? Loc: HO.US ? Attending Dr: Neyda Chacko MD ? Ordering Physician: Neyda Chacko MD ?? Date of Service: 05/03/24 ?? Procedure(s): US abdomen comp w elastography ?? Accession Number(s): [id number] ? cc: Neyda Chacko MD ? EXAMINATION: ??US ABDOMEN COMPLETE WITH LIVER ELASTOGRAPHY ? HISTORY: MASLD ? TECHNIQUE: Real-time grayscale ultrasound imaging of the abdomen was ?? performed and images were reviewed. ? COMPARISON: Comparison is made with the prior examination dated ?? 04/15/2020. ? FINDINGS: ?? Liver: ??The right lobe of the liver measures 15.5 cm in size. The left ?? lobe of the liver measures 7.2 cm in size. The liver demonstrates ?? normal homogeneous echotexture. ??No focal mass or intrahepatic biliary ?? ductal dilatation is identified. ??There is normal hepatopedal flow in ?? the portal vein. ? Ultrasound elastography of the liver was performed with 10 separate ?? measurements of the liver parenchyma with the patient in the supine ?? position. ??Measurements were obtained approximately 2 cm below ?? Jabari's capsule and perpendicular to the capsule. ??Images are of ?? satisfactory quality. ? The median shear wave velocity is 2.08 m/s. ?? The interquartile range/median (IQR/median) is 0.08. ? Gallbladder and biliary tree: There is a 4 mm gallbladder polyp. The ?? gallbladder is otherwise unremarkable, without evidence of calculi, ?? wall thickening, or pericholecystic fluid. ??There is no sonographic ?? Nguyen sign. ??The common bile duct is normal in caliber measuring 4 mm. ? Kidneys: ??The right kidney measures 10.9 cm in length. The left kidney ?? measures 11.0 cm in length. ??The kidneys are unremarkable, without ?? evidence of masses, hydronephrosis, or calculi. ? Pancreas: The pancreas is obscured by bowel gas. ? Spleen: The spleen is normal in size and contour, measuring 9.2 cm in ?? length. ? Abdominal aorta and inferior vena cava: The visualized portions of the ?? abdominal aorta and inferior vena cava are normal in caliber. ? There is no free fluid in the abdomen. ? US/US abdomen comp w elastography ?? IMPRESSION: ? 4 mm gallbladder polyp. The pancreas is not visualized. Otherwise ?? unremarkable abdominal ultrasound. ? The median shear wave velocity in the liver is 2.08 m/s, corresponding ?? to a median liver stiffness of 13.15 kPa. ??The IQR/median value is ?? 0.08. ??This is indicative of a quality data set. ?? Findings are indicative of a high elastography value suggestive of ?? compensated advanced chronic liver disease. ? REFERENCE: ?? Society of Radiologists in Ultrasound Liver Stiffness Thresholds (2019): ? LIVER STIFFNESS THRESHOLDS: ?? *Shear wave velocity less than 1.3 m/s (Liver Stiffness equal or less ?? than 5 kPa): ??High probability of being normal. ?? *Shear wave velocity less than 1.7 m/s (Liver Stiffness less than 9 ?? kPa): ??In the absence of other known clinical signs, rules out ?? compensated advanced chronic liver disease. ?? *Shear wave velocity between 1.7-2.1 m/s (Liver Stiffness 9-13 kPa): ? Suggestive of compensated advanced chronic liver disease but need ?? further test for confirmation. ?? *Shear wave velocity between 2.1-2.4 m/s (Liver Stiffness 13-17 kPa): ? Rules in compensated advanced chronic liver disease. ?? *Shear wave velocity ??greater than 2.4 m/s (Liver Stiffness over 17 ?? kPa): ??Suggestive of clinically significant portal hypertension. ? QUALITY OF DATA SET: ?? *IQR/Median value equal or less than 0.15 implies a quality data set. ?? *IQR/Median value over 0.15 implies a poor quality data set. ? SIGNIFICANT CHANGE FROM PRIOR EXAM: ?? Significant change if liver stiffness measurement is 10% or greater ?? from prior exam. ? OTHER CONSIDERATIONS: ?? The stage of liver fibrosis may be overestimated in the setting of ?? acute hepatitis, liver inflammation, elevated liver function tests, ?? hepatic vascular congestion, obstructive cholestasis, non-fasting ?? state, and infiltrative diseases such as amyloidosis and lymphoma. ??In ?? some patients with NAFLD, the liver stiffness thresholds for ?? compensated advanced chronic liver disease may be lower. ??In causes ?? other than viral hepatitis and NAFLD, liver stiffness thresholds are ?? not well established. ? Electronically signed by: ??Samuel Graff MD ??05/03/2024 12:20 PM EDT ? Dictated By: ?Samuel Graff MD ? Signed By: ?<Electronically signed by Samuel Graff MD in OV> ?05/03/24 1220 ? DD/ 1004 ? TD/TT: 05/03/24 1019 ? Production Engineer: ? Procedure Note Donhardyinterpreter, Image - 05/03/2024 [place] [address] Ultrasound Report Signed Patient: Jaimee Guzman IMR#: [id number] 2030 : 9Acct:[id number] Age/Sex: 64 / FADM Date: 05/03/24 Loc: HO.US Attending Dr: Neyda Chacko MD Ordering Physician: Neyda Chacko MD Date of Service: 05/03/24 Procedure(s): US abdomen comp w elastography Accession Number(s): [id number] cc: Nyeda Chacko MD EXAMINATION: US ABDOMEN COMPLETE WITH LIVER ELASTOGRAPHY HISTORY: MASLD TECHNIQUE: Real-time grayscale ultrasound imaging of the abdomen was performed and images were reviewed. COMPARISON: Comparison is made with the prior examination dated 04/15/2020. FINDINGS: Liver: The right lobe of the liver measures 15.5 cm in size. The left lobe of the liver measures 7.2 cm in size. The liver demonstrates normal homogeneous echotexture. No focal mass or intrahepatic biliary ductal dilatation is identified. There is normal hepatopedal flow in the portal vein. Ultrasound elastography of the liver was performed with 10 separate measurements of the liver parenchyma with the patient in the supine position. Measurements were obtained approximately 2 cm below Jabari's capsule and perpendicular to the capsule. Images are of satisfactory quality. The median shear wave velocity is 2.08 m/s. The interquartile range/median (IQR/median) is 0.08. Gallbladder and biliary tree: There is a 4 mm gallbladder polyp. The gallbladder is otherwise unremarkable, without evidence of calculi, wall thickening, or pericholecystic fluid. There is no sonographic Nguyen sign. The common bile duct is normal in caliber measuring 4 mm. Kidneys: The right kidney measures 10.9 cm in length. The left kidney measures 11.0 cm in length. The kidneys are unremarkable, without evidence of masses, hydronephrosis, or calculi. Pancreas: The pancreas is obscured by bowel gas. Spleen: The spleen is normal in size and contour, measuring 9.2 cm in length. Abdominal aorta and inferior vena cava: The visualized portions of the abdominal aorta and inferior vena cava are normal in caliber. There is no free fluid in the abdomen. US/US abdomen comp w elastography IMPRESSION: 4 mm gallbladder polyp. The pancreas is not visualized. Otherwise unremarkable abdominal ultrasound. The median shear wave velocity in the liver is 2.08 m/s, corresponding to a median liver stiffness of 13.15 kPa. The IQR/median value is 0.08. This is indicative of a quality data set. Findings are indicative of a high elastography value suggestive of compensated advanced chronic liver disease. REFERENCE: Society of Radiologists in Ultrasound Liver Stiffness Thresholds (2020): LIVER STIFFNESS THRESHOLDS: *Shear wave velocity less than 1.3 m/s (Liver Stiffness equal or less than 5 kPa): High probability of being normal. *Shear wave velocity less than 1.7 m/s (Liver Stiffness less than 9 kPa): In the absence of other known clinical signs, rules out compensated advanced chronic liver disease. *Shear wave velocity between 1.7-2.1 m/s (Liver Stiffness 9-13 kPa): Suggestive of compensated advanced chronic liver disease but need further test for confirmation. *Shear wave velocity between 2.1-2.4 m/s (Liver Stiffness 13-17 kPa): Rules in compensated advanced chronic liver disease. *Shear wave velocity greater than 2.4 m/s (Liver Stiffness over 17 kPa): Suggestive of clinically significant portal hypertension. QUALITY OF DATA SET: *IQR/Median value equal or less than 0.15 implies a quality data set. *IQR/Median value over 0.15 implies a poor quality data set. SIGNIFICANT CHANGE FROM PRIOR EXAM: Significant change if liver stiffness measurement is 10% or greater from prior exam. OTHER CONSIDERATIONS: The stage of liver fibrosis may be overestimated in the setting of acute hepatitis, liver inflammation, elevated liver function tests, hepatic vascular congestion, obstructive cholestasis, non-fasting state, and infiltrative diseases such as amyloidosis and lymphoma. In some patients with NAFLD, the liver stiffness thresholds for compensated advanced chronic liver disease may be lower. In causes other than viral hepatitis and NAFLD, liver stiffness thresholds are not well established. Electronically signed by: Samuel Graff MD 05/03/2024 12:20 PM EDT Dictated By: Samuel Graff MD Signed By: <Electronically signed by Samuel Graff MD in OV> 05/03/24 1220 DD/ 1004 TD/TT: 05/03/24 1019 Production Engineer: us Neyda Ginna SCHWARTZ [facility] US PROCEDURES Final Result * Hematoxylin and Eosin Stain (04/12/2024 10:44 AM EST) 04/12/2024 10:4 4 AM EST 04/12/2024 11:16 AM EST [facility] - 04/13/2024 4:09 PM EST ----- ------- Name: Jaimee Guzman I ? Age/Sex: 64/F ? : 1960 Unit#: [id number] ?? Attend Dr: Walter Moon MD ?Re04/12/24 ?Status: DEP REF ? Location: HO.MAMMO ?Disch: ? ----- ------- SPEC : [id number] ?RECD: 04/12/24-1115 ? STATUS: ??SOUT ? REQ NUM: [id number] ? HUMBERTO: 04/12/24 ? SUBM DR: Nereyda [...] To: ?? Walter Moon MD ?? [facility] ?? [address] ?? [place] [address] ?? [phone] ?? Neyda Chacko MD ?? [facility] ?? [address] ?? [place] [address] ?? [phone] ? CONTINUED ON NEXT PAGE ----- ------- Name: Jaimee Guzman I ? Age/Sex: 64/F ? : 1960 Unit#: [id number] ?? Attend Dr: Walter Moon MD ?Re04/12/24 ?Status: DEP REF ? Location: HO.MAMMO ?Disch: ? ----- ------- SPEC : [id number] ?RECD: 04/12/24-1116 ? STATUS: ??SOUT ? REQ NUM: [id number] ? HUMBERTO: 04/12/24-1044 ? SUBM DR: Nereyda Carvajal DO ? ENTERED: ??04/12/24-4 ?SP TYPE: Surgical ? OTHR DR: Walter Moon MD ?Neyda Chacko MD ORDERED: ??HE Stain/2, Gross Micro L4 ? COMMENTS: As per the specimen requisition slip the specimen is ?collected at 1044 and placed in formalin at 1052. Copies To: ??(Continued) ?? Nereyda Carvajal DO ?? [address] [facility] ?? [place] [address] ?? [phone] ----- ------- Signed (signature on file) Yash Moreno MD 04/13/24 3569 ? ----- ------- ? END OF REPORT ? us Generic External Data Provider LAB BLOOD ORDERAB LES Final Result Performing Organization Address [facility]/State/ZIP Co de Phone Number [facility] [address] [facility] [place] [address] [phone] * US BREAST NDL CORE BIOPSY RT (04/12/2024 10:00 AM EST) Anatomical Region Laterality Modality Abdomen Ultrasound 04/12/2024 10:0 0 AM EST Narrative 04/12/2024 12:13 PM EST ? [place] [facility] ? [address] ?[place] [address] ? Ultrasound Report ? Signed with Addenda ? Patient: Guzman,Jaimee I ?MR#: [id number] ?? 2030 ? : 1960 ?Acct:[id number] ? Age/Sex: 64 / F ?ADM Date: 04/12/24 ? Loc: HO.MAMMO ? Attending Dr: Walter Moon MD ? Ordering Physician: Walter Moon MD ?? Date of Service: 04/12/24 ?? Procedure(s): US breast ndl core biopsy RT ?? Accession Number(s): [id number] ? cc: Walter Moon MD; Neyda Chacko [...] DD/ 1000 ? TD/TT: 04/12/24 1100 ? Production Engineer: ? Procedure Note Donalixter, Image - [facility]20[facility] [address] [place] [address] Ultrasound Report Signed with Esa Patient: Jaimee Guzman [facility]#: [id number] 2030 : 9Acct:[id number] Age/Sex: 64 / FADM Date: 04/12/24 Loc: HO.MAMMO Attending Dr: Walter Moon MD Ordering Physician: Walter Moon MD Date of Service: 04/12/24 Procedure(s): US breast ndl core biopsy RT Accession Number(s): [id number] cc: Walter Moon MD; Neyda Chacko MD; [...] 04/12/24 1210 DD/ 1000 TD/TT: 04/12/24 1100 Production Engineer: [facility] External Provider IMG US PROCEDURES Edited [...] EST Narrative 03/15/2024 12:29 PM EST ? [facility] ? [address] ?[place] [address] ? Ultrasound Report ? Signed ? Patient: Jaimee Guzman I ?MR#: [id number] ?? 2030 ? : 1960 ?Acct:[id number] ? Age/Sex: 63 / F ?ADM Date: 03/15/24 ? Loc: HO.MAMMO ? Attending Dr: Neyda Chacko MD ? Ordering Physician: Neyda Chacko MD ?? Date of Service: 03/15/24 ?? Procedure(s): US breast RT limited mamm only ?? Accession Number(s): [id number] ? cc: Neyda Chacko MD ? EXAMINATION: [...] DD/ 1130 ? TD/TT: 03/15/24 1158 ? Production Engineer: ? Procedure Note Supa, Image - 03/15/2024 [facility] [address] [place] [address] Dr. [place], [place] [address] Ultrasound Report Signed Patient: Jaimee Guzman [facility]#: [id number] 2030 : 9Acct:[id number] Age/Sex: 63 / FADM Date: 03/15/24 Loc: RACHEL.MAMMO Attending Dr: Neyda Chacko MD Ordering Physician: Neyda Chacko MD Date of Service: 03/15/24 Procedure(s): US breast RT limited mamm only Accession Number(s): [id number] cc: Neyda Chacko MD EXAMINATION: MM DIAGNOSTIC [...] 03/15/24 1226 DD/ 1130 TD/TT: 03/15/24 1158 Production Engineer: us Neyda Chacko MD IMG US PROCEDURES Final Result * BI Mammogram Diagnostic Tomosynthesis Bilateral (03/15/2024 11:15 AM EST) Anatomical Region Laterality Modality Breast Bilateral Mammography 03/15/2024 11:1 5 AM EST Narrative 03/15/2024 12:29 PM EST ? [facility] ? [address] ?[place], [place] [address] ? Mammography Report ? Signed ? Patient: Guzman,Jaimee I ?MR#: [id number] ?? 2032 ? : 1960 ?Acct:[id number] ? Age/Sex: 63 / F ?ADM Date: 03/15/24 ? Loc: HO.MAMMO ? Attending Dr: Neyda Chacko MD ? Ordering Physician: Neyda Chacko MD ?Results: 4Suspicio ?? us Finding ? Date of Service: 03/15/24 ?Follow Up: Biopsy Recommend ?? ed ? Procedure(s): MM tomosynthesis diagnostic BI ?? Accession Number(s): [id number] ? cc: Neyda Chacko MD ? EXAMINATION: [...] DD/ 1115 ? TD/TT: 03/15/24 1140 ? Production Engineer: ? Procedure Note Supa, Image - 03/15/2024 [facility] [address] [place] [address] Dr. [place], [place] [address] Mammography Report Signed Patient: Jaimee Guzman IMR#: [id number] 2032 : 9Acct:[id number] Age/Sex: 63 / FADM Date: 03/15/24 Loc: NATHALY Attending Dr: Neyda Chacko MD Ordering Physician: Neyda Chacko MDResults: 4Suspicio us Finding Date of Service: 03/15/24Follow Up: Biopsy Recommend ed Procedure(s): MM tomosynthesis diagnostic BI Accession Number(s): [id number] cc: Neyda Chacko MD EXAMINATION: MM DIAGNOSTIC [...] by: Nereyda Carvajal DO 03/15/2024 12:26 PM [facility] Dictated By: Nereyda Carvajal DO Signed By: <Electronically signed by Nereyda Carvajal DO in OV> 03/15/24 1226 DD/ 1115 TD/TT: 03/15/24 1140 Production Engineer: us Neyda Chacko MD IMG BI PROCEDURES Final Result * Lipid Panel with Reflex to Direct LDL (12/15/2023 11:00 AM EDT) Triglycerides 45 <150 mg/dL [facility] Comment:Desirable Triglyceri de: less than 150 mg/dLBorderline High Triglyceride 150-199 mg/dLHigh Triglyceride: 200-499 mg/dLVery High Triglyceride: greater than or equal to 5OO mg/dL Cholesterol 113 <200 mg/dL [facility] Comment:Desirable Cholestero l: less than 200 mg/dLBorderline High Cholesterol: 200-239 mg/dLHigh Cholesterol: greater than 239 mg/dL LDL Cholesterol Calculated 51 <100 mg/dL [facility] Comment:Desirable LDL: less than 100 [...] MD LAB BLOOD ORDERABLES Final Resul t [facility] [address] [place] [phone] * Albumin, Random Urine W/Creatinine (12/15/2023 11:00 AM EDT) Creatinine, Urine 75.29 mg/dL [facility] Microalbumin Urine 21.0 mg/L [facility] Microalbum Creatinine Ratio Ur 27.8 <30 ug/mg cr [facility] Comment:Albumin/Creatinine R atio Reference Ranges: Normal: < 30 ug/mg creatinine Microalbuminuria: 30 - 300 ug/mg creatinineClinical Albuminuria: > 300 ug/mg creatinine Urine 12/15/2023 11:0 0 AM EDT 12/15/2023 1:12 PM EDT us Neyda Chacko MD LAB URINE ORDERABLES Final Resul t [facility] [address] [place] [phone] [phone] * Diabetes Eye Exam (12/25/2022) Eye Exam Normal Normal Historical Provider MD HEALTH MAINTENANCE Final Result * Colonoscopy (08/15/2020) Colonoscopy Normal Normal Historical Provider HEALTH MAINTENANCE Final Result * HPV E6/E7 RFLX LINDSAY 16 18/45 (12/27/2019 1:40 PM EST) HPV mRNA E6/E7 rflx Not Detected Not Detected [facility] Comment: This test was performed using the APTIMA HPV Assay ([employer] This assay detects E6/E7 viral messenger RNA (mRNA) from 14 high-risk HPV types (16,18,31,33,35,39,45,51,52,56,58,59,66,68). The analytical performance characteristics of this assay have been determined by [employer]. The modifications have not been cleared or approved by the FDA. This assay has been validated pursuant to the CLIA regulations and is used for clinical purposes. THIS TEST WAS PERFORMED AT: [facility] [address] [place], [place] ??[phone] RENE MULLINS MD 12/27/2019 1:40 PM EST Ry Curtis MD HISTORICAL/NON ORDERABLE LABS Fi nal Result [facility] [address] from Last 3 Months or Most Recently Relevant to Health Maintenance Insurance [facility] [address] [place] [address] [address] [place] [address] [address] [place] [address] Care Teams Carbon Setter Relationship Specialty Start Date End Date Neyda Chacko MD [address] [place] [phone] PCP - General Family Medicine 02/22/18
--- OUTSIDE RECORDS SUMMARY | 2024-05-24 11:45 | XMS_ITS | Encounter Summary ---
Author Organization [employer] [facility] Address [address] [place] [address] Care Team Providers Care Ice Cream Shop Associate Name Role Phone Neyda Chacko MD Primary Care Provider [phone] Reason for Visit * Reason Onset Date Comments Med Refill 09/03/2022 Encounter Details Date Type Department Care Team (Late st Contact Info) Description 09/03/2022 Telephone [facility] [address] [place], [place] [phone] Neyda Chacko MD [address] [place], [place] [phone] Med Refill Social History Tobacco Use Types [...] documented as of this encounter Care Teams Ice Cream Shop Associate Relationship Specialty Start Date End Date Neyda Chacko MD [address] [place] [address] PCP - General Family Medicine 02/22/18 documented as of this encounter
--- OUTSIDE RECORDS SUMMARY | 2024-05-24 11:45 | XMS_ITS | Encounter Summary ---
Author Organization [employer] Address [address] [place] [address] Care Team Providers Care Naval Aircre[employer] Mechanical Name Role Phone Neyda Chacko MD Primary Care Provider [phone] Encounter Details Date Type Department Care Team (Late st Contact Info) Description 07/14/2023 Orders Only [facility] MEDICINE [address] [place], [place] [phone] Neyda Chacko MD [address] [place], [place] [phone] Social History Tobacco Use Types Packs/Day Years [...] documented as of this encounter Care Teams [employer] Relationship Specialty Start Date End Date Neyda Chacok MD [address] [place] [phone] PCP - General Family Medicine 02/22/18 documented as of this encounter
--- OUTSIDE RECORDS SUMMARY | 2024-05-24 11:45 | XMS_ITS | Encounter Summary ---
Author Organization [employer] Address [address] [facility] 7t [place] [address] Care Team Providers Care Toll Transmission Worker Name Role Phone Neyda Chacko MD Primary Care Provider [phone] Encounter Details Date Type Department Care Team (Late st Contact Info) Description 09/09/2023 Orders Only [facility] MEDICINE [address] [place], [place] [phone] Neyda Chacko MD [address] [place], [place] [phone] Essential hypertension (Primary Dx); Type 2 diabetes mellitus with hyperglycemia, with long-term current use of insulin ([facility]); Dyslipidemia; Weight loss Social History [...] hyperglycemia, with long-term current use of insulin ([facility]) TSH W/REFLEX TO FT4 Routine 12/15/2023 1 1:00 AM EDT Weight loss LIPID PANEL WITH REFLEX TO DIRECT LDL Routine 12/15/2023 11:00 AM EDT Type 2 diabetes mellitus with hyperglycemia, with long-term current use of insulin ([facility]) Dyslipidemia ALBUMIN, RANDOM URINE W/CREATININE Routine 12/15/2023 11:00 AM EDT Type 2 diabetes mellitus with hyperglycemia, with long-term current use of insulin ([facility]) CBC WITH AUTO DIFFERENTIAL Routine 12/15/2023 11:00 AM EDT Weight loss COMPREHENSIVE METABOLIC PANEL Routine 12/15/2023 11:00 AM EDT Essential hypertension documented in this encounter Results * (ABNORMAL) CBC auto differential (12/15/2023 11:00 AM EDT) White Blood Count 2.5(L) 4.8 - 10.8 X10*3/uL [facility] Red Blood Count 4.42 4.20 - 5.50 X10*6/uL [facility] Hemoglobin 12.7 12.0 - 16.0 g/dl [facility] Hematocrit 38.9 37.0 - 47.0 % [facility] Mean Corpuscular Volume 88.0 80.0 - 98.0 fL [facility] Mean Corpuscular Hemoglobin 28.7 27.0 - 33.0 pg [facility] Mean Corpuscular HGB Conc 32.6 31.0 - 35.0 g/dl [facility] Red Cell Distribution Width 12.0 11.0 - 16.0 % [facility] Platelet Count 180 160 - 400 X10*3/uL [facility] Mean Platelet Volume 9.8 9.4 - 12.3 fL [facility] Neutrophils Percent Auto 36.6(L) 45 - 73 % [facility] Imm Gran Pct Auto 0.4 0.0 - 0.4 % [facility] Lymphocytes Percent Auto 49.8(H) 20 - 40 % [facility] Monocytes Percent Auto 8.8 2 - 11 % [facility] Eosinophils Percent Auto 3.6 0 - 4 % [facility] Basophils Percent Auto 0.8 0 - 2 % [facility] NRBC Pct Auto 0.0 0.0 - 0.2 /100WBC [facility] Neutrophils Absolute Auto 0.9(L) 2.0 - 8.3 x10*3/uL [facility] Imm Gran Abs Auto 0.01 0.00 - 0.03 X10*3/uL [facility] Lymphocytes Absolute Auto 1.3 1.2 - 4.9 X10*3/uL [facility] Monocytes Absolute Auto 0.2 0.1 - 1.2 X10*3/uL [facility] Eosinophils Absolute Auto 0.1 0.0 - 0.4 X10*3/uL [facility] Basophils Absolute Auto 0.0 0.0 - 0.2 X10*3/uL [facility] NRBC Abs Auto 0.000 0.0 - 0.012 X10*3/uL [facility] Blood Venous blood specimen / Unknown 12/15/2023 11:00 AM EDT 12/15/2023 1:24 PM EDT Neyda Chacko MD LAB BLOOD ORDERABLES Edited Resu lt - Final Performing Organization Address City/[facility] Co de Phone Number [facility] [address] [place] [phone] * TSH with Reflex to Free T4 (12/15/2023 11:00 AM EDT) Pathologist [facility] TSH reflex Free T4 2.91 0.32 - 4.0 uIU/mL [facility] Blood 12/15/2023 11:0 0 AM EDT 12/15/2023 1:24 PM EDT Neyda Chacko MD LAB BLOOD ORDERABLES Final Resul t Performing Organization Address [facility] de Phone Number [facility] [address] [place] [phone] * (ABNORMAL) Comprehensive Metabolic Panel (12/15/2023 11:00 AM EDT) Sodium 142 135 - 145 mmol/L [facility] Potassium 4.0 3.3 - 5.1 mmol/L [facility] Chloride 107 96 - 108 mmol/L [facility] Carbon Dioxide 30(H) 22 - 29 mmol/L [facility] Anion Gap 9(L) 12 - 20 [facility] Urea Nitrogen (BUN) 18(H) 9 - 16 mg/dL [facility] Creatinine, Serum 0.68 0.5 - 1.4 mg/dL [facility] Estimated Glomerular Filt Rate >60 [facility] Comment:NOTE: For -Am erican individuals, multiply the result by 1.210.Chronic Kidney Disease: Estimated GFR < 60 mL/min/1.12v8Ladmnc Kidney Disease: Estimated GFR < 15 mL/min/1.73m2 Glucose 161(H) 60 - 115 mg/dL [facility] Calcium 9.5 8.4 - 10.2 mg/dL [facility] Bilirubin, Total 0.2 0.0 - 1.0 mg/dL [facility] Aspartate Amino Transferase 34(H) 5 - 31 U/L [facility] Alanine Aminotransferase 49(H) 0 - 31 U/L [facility] Total Protein 6.9 6.5 - 8.0 g/dL [facility] Albumin Level 3.9 3.5 - 5.0 g/dL [facility] Alkaline Phosphatase 59 39 - 117 U/L [facility] Blood Venous blood specimen / Unknown 12/15/2023 11:00 AM EDT 12/15/2023 1:24 PM EDT Neyda Chacko MD LAB BLOOD ORDERABLES Final Resul t Performing Organization Address City/[facility] de Phone Number [facility] [address] [place] [address] [phone] * Albumin, Random Urine W/Creatinine (12/15/2023 11:00 AM EDT) Creatinine, Urine 75.29 mg/dL [facility] Microalbumin Urine 21.0 mg/L [facility] Microalbum Creatinine Ratio Ur 27.8 <30 ug/mg cr [facility] Comment:Albumin/Creatinine R atio Reference Ranges: Normal: < 30 ug/mg creatinine Microalbuminuria: 30 - 300 ug/mg creatinineClinical Albuminuria: > 300 ug/mg creatinine Urine 12/15/2023 11:0 0 AM EDT 12/15/2023 1:12 PM EDT us Neyda Chacko MD LAB URINE ORDERABLES Final Resul t Performing Organization Address City/[facility] Co de Phone Number [facility] [address] [place] [phone] * Lipid Panel with Reflex to Direct LDL (12/15/2023 11:00 AM EDT) Triglycerides 45 <150 mg/dL [facility] Comment:Desirable Triglyceri de: less than 150 mg/dLBorderline High Triglyceride 150-199 mg/dLHigh Triglyceride: 200-499 mg/dLVery High Triglyceride: greater than or equal to 5OO mg/dL Cholesterol 113 <200 mg/dL [facility] Comment:Desirable Cholestero l: less than 200 mg/dLBorderline High Cholesterol: 200-239 mg/dLHigh Cholesterol: greater than 239 mg/dL LDL Cholesterol Calculated 51 <100 mg/dL [facility] Comment:Desirable LDL: less than 100 mg/dLNear Optimal/Above Optimal LDL: 110- 129 mg/dLBorderline High LDL: 130-159 mg/dLHigh LDL: 160-189 mg/dLVery High LDL: greater than or equal to 190 mg/dL HDL Cholesterol 53 >40 mg/dL [facility] Comment:Desirable HDL: great er than 40 mg/dL Note: This HDL assay may give artificially low results in patients with liver disease. Blood 12/15/2023 11:0 0 AM EDT 12/15/2023 1:24 PM EDT us Neyda Chacko MD LAB BLOOD ORDERABLES Final Resul t [facility] [address] [place] [phone] * Vitamin B12 (Cobalamin) and Folate Panel, Serum (12/15/2023 11:00 AM EDT) Vitamin B12 402 200 - 900 pg/mL [facility] Comment:NORMAL 200-900 PG/ML INDETERMINATE 160-199 PG/ML DEFICIENT < 160 PG/ML Folate 12.9 > or = 4.0 ng/mL [facility] Comment:Reference Values:> o r = 4.0 ng/mL< 4.0 ng/mL suggests folate deficiency Methotrexate, aminopterin and folinic acid(leucovorin) are chemotherapeutic agents whose molecularstructures are similar to folate; therefore, the Architectfolate assay cannot be used for patients using these drugs. Blood 12/15/2023 11:0 0 AM EDT 12/15/2023 1:24 PM EDT Neyda Chacko MD LAB BLOOD ORDERABLES Final Resul t [facility] [address] [place] [phone] documented in this encounter Visit Diagnoses Diagnosis Essential hypertension- Primary Unspecified essential hypertension Type 2 diabetes mellitus with hyperglycemia, with long-term current use of insulin ([facility]) Dyslipidemia Other and unspecified hyperlipidemia Weight loss Loss of weight documented in this encounter Additional Health Concerns Assessment Noted Time PHQ-9 Depression Total Score: 7 06/15/19 24 10:57 AM EDT documented as of this encounter Care Teams Toll Transmission Worker Relationship Specialty Start Date End Date Neyda Chacko MD [address] [place] [address] PCP - General Family Medicine 02/22/18 documented as of this encounter
--- OUTSIDE RECORDS SUMMARY | 2024-05-24 11:45 | XMS_ITS | Encounter Summary ---
Author Organization [employer] Address [address] [facility] 7t [place] [address] Care Team Providers Care User Experience Team Lead Name Role Phone Neyda Chacko MD Primary Care Provider [phone] Reason for Visit * Reason Onset Date Comments Referral 05/22/2024 Imaging Orders 05/22/2024 Encounter Details Date Type Department Care Team (Late st Contact Info) Description 05/22/2024 Telephone [facility] MEDICINE [address] [place], [place] [phone] Suzette Cárdenas, RN [address] [place] [address] Referral; Imaging Orders Social History Tobacco Use Types Packs/Day Years [...] the past 12 months, has t he [employer], gas, oil or water [employer] threatened to shut off services in your [...] encounter Miscellaneous Notes * Telephone Encounter - Suzette Cárdenas RN - 05/22/2024 10:12 AM EDT Telephone call placed to pt. Informed that PCP reviewed note from general surgery and they recommended XR of her shoulder and PT and ortho referrals. Informed PCP has placed orders for these things. Can come to [facility] anytime to get XR done. Will get calls to book PT and ortho. If she doesn't hear form them within 2 weeks, let us know. Pt verbalized understanding and denied having any further questions or concerns at this time. Please inform patient that PCP ordered X-ray order and referred to PT and Ortho as suggested by general surgeon. Please ask her to get X-ray done. Thank you documented in this encounter Plan of Treatment Not on file documented as of this encounter Visit Diagnoses Not on filedocumented in this encounter Additional Health Concerns Assessment Noted Time PHQ-9 Depression Total Score: 7 06/15/19 24 10:57 AM EDT documented as of this encounter Care Teams User Experience Team Lead Relationship Specialty Start Date End Date Neyda Chacko MD [address] [place] [phone] PCP - General Family Medicine 02/22/18 documented as of this encounter
--- OUTSIDE RECORDS SUMMARY | 2024-05-24 11:45 | XMS_ITS | Encounter Summary ---
Author Organization [employer] Address [address] [facility] 7t [place] [address] Care Team Providers Care Cracker Dough Mixer Name Role Phone Neyda Chacko MD Primary Care Provider [phone] Reason for Referral * Consultation (Routine) - Closed Specialty Diagnoses / Procedures Referred By Rob hagan Referred To Contact Physical Therapy Diagnoses Acute pain of right shoulder Dina Torres NP [address] [place] [address] Phone: tel: fax: Physical Therapy, AT [address] [place], [place] Phone: tel: fax: Referral ID Status Reason Start Date Expiration Date V isits Requested Visits Authorized [id number] Closed Specialty Services Required 05/24/2024 05/24/2025 1 1 Reason for Visit * Reason Comments Fall Encounter Details Date Type Department Care Team (Late st Contact Info) Description 05/24/2024 9:40 AM EDT Office Visit [facility] [address] [place], [place] [phone] Dina Torres NP [address] [place] [address] Acute pain of right shoulder (Primary Dx); Elevated blood pressure reading in office with diagnosis of hypertension Social History Tobacco Use Types Packs/Day Years [...] (155 lb) 05/24/2024 9:34 AM EDT Height - - Body Mass Index 29.6 12/21/2023 11:40 AM EDT documented in this encounter Progress Notes * Dina Torres NP - 05/24/2024 9:40 AM EDT SUBJECTIVE: Jaimee Guzman is a 64 y.o. female who presents to the [facility] [place] for a sick visit. Denies recent illness, injury, or hospitalization. Here with grandharry Burris who is serving as interpretor and providing HPI. HPI Sustained fall onto her right shoulder about 1 week ago at home while attempting to move her stove. Has pain in right shoulder and difficulty with movement. Also has bruise on her upper arm that is improving. Fall was unwitnessed. She denies head strike, loss of consciousness, arm weakness, numbness and tingling in the arm or dropping things. Has been taking tylenol for the pain and used lidocaine patches. Review of Systems Constitutional: Negative. Negative for chills and fever. Respiratory: Negative for chest tightness and shortness of breath. Cardiovascular: Negative for chest pain. Gastrointestinal: Negative for abdominal pain, constipation, diarrhea and nausea. Genitourinary: Negative for dysuria. Musculoskeletal: Positive for arthralgias and myalgias. Negative for back pain and neck pain. Skin: Negative. Negative for rash and wound. Neurological: Negative for weakness, light-headedness and headaches. Psychiatric/Behavioral: Negative for behavioral problems, confusion, decreased concentration and suicidal ideas. OBJECTIVE: Visit Vitals BP (!) 145/76 (BP Location: Right arm, Patient Position: Sitting, BP Cuff Size: Adult) Pulse 74 Temp 97.9 ??F (36.6 ??C) (Temporal) Resp 16 Wt 155 lb (70.3 kg) SpO2 98% BMI 29.60 kg/m?? Smoking Status Former BSA 1.73 m?? Patient Active Problem List Diagnosis Allergic rhinitis Chronic anemia Chronic recurrent major depressive disorder (CMS/HCC) Constipation Type 2 diabetes mellitus (CMS/HCC) Dyslipidemia Essential hypertension Female urethrocele Gastroesophageal reflux disease Hemorrhoids Menometrorrhagia Obstructive sleep apnea syndrome Peripheral arterial occlusive disease (CMS/HCC) Peripheral venous insufficiency Gastroparesis Overweight (BMI 25.0-29.9) Chronic back pain Symptomatic irreversible pulpitis Dental abscess Left foot pain Weight loss Sarcopenia Partially edentulous maxilla Bradycardia Leukopenia Mass of axillary tail of right breast Transaminitis Metabolic dysfunction-associated steatotic liver disease (MASLD) Chronic right shoulder pain Physical Exam Vitals reviewed. Constitutional: General: She is not in acute distress. Appearance: Normal appearance. She is not ill-appearing. HENT: Head: Normocephalic and atraumatic. Right Ear: External ear normal. Left Ear: External ear normal. Nose: Nose normal. Eyes: General: No scleral icterus. Extraocular Movements: Extraocular movements intact. Cardiovascular: Rate and Rhythm: Normal rate and regular rhythm. Pulmonary: Effort: Pulmonary effort is normal. No respiratory distress. Musculoskeletal: Right shoulder: Swelling and tenderness present. No crepitus. Decreased range of motion. Normal strength. Normal pulse. Left shoulder: Normal. Cervical back: Normal range of motion. Neurological: General: No focal deficit present. Mental Status: She is alert and oriented to person, place, and time. Gait: Gait normal. Psychiatric: Mood and Affect: Mood normal. Behavior: Behavior normal. Assessment/Plan Diagnoses and all orders for this visit: Acute pain of right shoulder Comments: -x-ray to r/o fracture -rx'ed baclofen and advised cont tylenol -rx'ed diclofenac gel as patient is unable to take oral NSAID due to gastric ulcer hx -apply heat/cold compress as desired, 20 min on and 20 mins off -discussed PT for ROM and she agrees -follow-up and ED precautions reviewed Orders: - baclofen (Lioresal) 10 MG tablet; Take one tablet TID PRN - Referral to Physical Therapy; Future - XR Shoulder 2+ Views Right; Future - acetaminophen (Tylenol) 500 MG tablet; Take 2 tablets (1,000 mg) by mouth every 6 (six) hours if needed for mild pain for up to 14 days. - Diclofenac Sodium 1 % gel; Apply 1 g topically if needed in the morning, at noon, and at bedtime (pain). Elevated blood pressure reading in office with diagnosis of hypertension Comments: -mildly increased. most likely due to acute pain process. Pt is asymptomatic -med compliance reviewed. low salt/low fat diet and routine physical activity -follow-up as scheduled with PCP Sammarinese Translation: margarito [place] per patient request documented in this encounter Plan of Treatment Scheduled Referrals Name Type Priority Associated Diagnoses Orde r Schedule Referral to Physical Therapy Outpatient Referral Routine Acute pain of right shoulder Expected: 05/24/2024 (Approximate), Expires: 05/24/2025 documented as of this encounter Procedures Procedure Name Priority Date/Time Associated Diagnosis Comments XR SHOULDER 2+ VIEWS RIGHT Routine 05/24/2024 10:09 AM EDT Acute pain of right shoulder documented in this encounter Results * XR Shoulder 2+ Views Right (05/24/2024 10:09 AM EDT) Anatomical Region Laterality Modality Upper Extremities, Shoulder Right Radi ographic Imaging 05/24/2024 10:0 9 AM EDT Narrative 05/24/2024 10:41 AM EDT ?[facility] ?[address] ?[place] [address] ?XRay Report ? Signed ? Patient: Jaimee Guzman I ?MR#: [id number] ?? 2032 ? : 1960 ?Acct:[id number] ? Age/Sex: 64 / F ?ADM Date: 05/24/24 ? Loc: HO.HHCX ? Attending Dr: Dina Torres ? Ordering Physician: Dina Torres ?? Date of Service: 05/24/24 ?? Procedure(s): XR shoulder RT min 2V ?? Accession Number(s): [id number] ? cc: Dina Torres ? EXAMINATION: ??XR [...] DD/ 1009 ? TD/TT: 05/24/24 1022 ? Crabber: ? Procedure Note Abhishek Cowart - 05/24/2024 [facility] [address] [place] [address] XRay Report Signed Patient: Jaimee Guzman IMR#: [id number] 2030 : 9Acct:[id number] Age/Sex: 64 / FADM Date: 05/24/24 Loc: HO.HHCX Attending Dr: Dina Torres Ordering Physician: Dina Torres Date of Service: 05/24/24 Procedure(s): XR shoulder RT min 2V Accession Number(s): [id number] cc: Dina Torres EXAMINATION: XR SHOULDER 2 [...] 05/24/24 1037 DD/ 1009 TD/TT: 05/24/24 1022 Crabber: Dina Torres DEPORTATION OFFICER IMG XR PROCEDURES Edited Result - Final documented in this encounter Visit Diagnoses Diagnosis Acute pain of right shoulder- Primary Elevated blood pressure reading in office with diagnosis of hypertension documented in this encounter Additional Health Concerns Assessment Noted Time PHQ-9 Depression Total Score: 7 06/15/19 24 10:57 AM EDT documented as of this encounter Care Teams Cracker Dough Mixer Relationship Specialty Start Date End Date Neyda Chacko MD [address] [place] [address] PCP - General Family Medicine 02/22/18 documented as of this encounter
--- OUTSIDE RECORDS SUMMARY | 2024-05-24 11:45 | XMS_ITS | Encounter Summary ---
Author Organization [employer] Address [address] [facility] 7t [place] [address] Care Team Providers Care Chief Cloth Finishing Range Operator Name Role Phone Neyda Chacko MD Primary Care Provider [phone] Encounter Details Date Type Department Care Team (Late st Contact Info) Description 11/02/2023 Orders Only [facility] MEDICINE [address] [place], [place] [phone] Neyda Chacko MD [address] [place], [place] [phone] Type 2 diabetes mellitus with hyperglycemia, with long-term current use of insulin ([facility]) Social History Tobacco Use Types Packs/Day [...] with long-term current use of insulin ([facility]) documented in this encounter Additional Health Concerns Assessment Noted Time PHQ-9 Depression Total Score: 7 06/15/19 24 10:57 AM EDT documented as of this encounter Care Teams Chief Cloth Finishing Range Operator Relationship Specialty Start Date End Date Neyda Chacko MD [address] [place] [phone] PCP - General Family Medicine 02/22/18 documented as of this encounter
--- OUTSIDE RECORDS SUMMARY | 2024-05-24 11:45 | XMS_ITS | Encounter Summary ---
Author Organization [employer] Address [address] [facility] [address] 7[address] [place] [address] Care Team Providers Care Health Information Managers Name Role Phone Neyda Chacko MD Primary Care Provider [phone] Encounter Details Date Type Department Care Team (Late st Contact Info) Description 05/24/2024 Telephone [facility] [address] [place], [place] [phone] Dina Torres NP [address] [place] [address] Social History Tobacco Use Types Packs/Day Years [...] encounter Miscellaneous Notes * Telephone Encounter - Emma Tillman RN - 05/24/2024 10:58 AM EDT TC placed to pt regarding message below per Dina Torres AIRPLANE RIGGER. Pt verbalized understanding. No questions or concerns expressed at this time. Pt to F/U as needed. ----- Message from Dina Torres sent at 05/24/2024 10:50 AM EDT ----- GM, please inform Jaimee of jace X-ray. Plan to proceed as discussed with PT and analgesics. thanks documented in this encounter Plan of Treatment Not on file documented as of this encounter Visit Diagnoses Not on filedocumented in this encounter Additional Health Concerns Assessment Noted Time PHQ-9 Depression Total Score: 7 06/15/19 24 10:57 AM EDT documented as of this encounter Care Teams Health Information Managers Relationship Specialty Start Date End Date Neyda Chacko MD [address] [place] [phone] PCP - General Family Medicine 02/22/18 documented as of this encounter
== END 2024-05-24 10:10 | disposition home or self-care (01) ==
LOC: HO.HHCX 10:09
PROVIDERS: Visit Provider Nurse Practitioner
DX: M25.511 Pain in right shoulder (principal)
CPT/HCPCS: 73030

== ENCOUNTER → 2024-05-24 10:09 | Outpatient (BNV) | payer OTHER, SELFPAY | PROVIDERS: Visit Provider Radiology Diagnostic Radiology | DX: M25.511 Pain in right shoulder (principal); W19.XXXA Unspecified fall, initial encounter | CPT/HCPCS: 73030 ==

== ENCOUNTER 2024-06-07 12:39 | Outpatient (AMB) | payer OTHER, SELFPAY ==
--- NOTE | 2024-06-07 12:44 | MHC.OFFVIS ---
Vital Signs 06/07/24 12:46 Height 5 ft 2 in Weight 149 lb 14.629 oz BMI 27.4 BP 134/73 Blood Pressure Location Rt brachial Position Sitting Pulse 67 Intake Visit Reasons: 6 months follow up Intake Note: Jaimee presents in the office as a 6 months follow up of GERD. CC: She c/o heartburn and acid reflux. Jewelry Engraver Required: Yes Jewelry Engraver Language: Training Specialist Name: daughter Accompanied by: Family/Other Allergies pioglitazone [From Actos] Allergy (Mild, Verified 06/07/24 12:47) EDEMA, unknown HPI HPI 6 months follow up: Details: Assessment & Plan (1) Gastroparesis: Code(s): K31.84 - Gastroparesis Category: Medical (2) GERD (gastroesophageal reflux disease): Code(s): K21.9 - Gastro-esophageal reflux disease without esophagitis Category: Medical (3) Irritable bowel syndrome with both constipation and diarrhea: Code(s): K58.2 - Mixed irritable bowel syndrome Category: Medical Plan STATELESS #dtr translates per pt request They say that she had a relatively recent colonoscopy per Dr Chacko. THey says it was here but I can not find that in any of our records. I ask them to verify this with the PCP. She continues to do well in terms of her nausea and abdominal pain. Her PCP reduced her BP medications r/t wt loss and will be starting her on Ensure. She is on Ozempic for her diabetes, so this is a complicating factor. She continues on her carafate, pantoprazole bid, senna and reglan. ROV 6 mos. TODAY'S VISIT STATELESS #dtr translates per pt request She continues on her carafate, pantoprazole bid, senna and reglan. I notice that she is quite overdue for a colonoscopy, unless she had one at another institution since 2009. She denies this. We discuss colonoscopy and also I show them the Cologuard video, as she did not have polyps and there is no known FHX of crc or polyps She opts for COloguard. She still has some breakthrough of HB and some reflux, and I advie using TUMS. Given her multiple complicating factors including gastroparesis and Ozempic use I think she needs to consider more dietary triggers etc. ROV 8 - 10 weeks. [facility] Medical History Colon cancer screening Upper abdominal pain Nausea and vomiting Diarrhea snf current use of insulin Obesity with body mass index of 30.0-39.9 Hypoglycemia associated with type 2 diabetes mellitus Diabetes type 2, uncontrolled Heart murmur COVID-19 vaccine administered Diabetic neuropathy associated with type 2 diabetes mellitus Background diabetic retinopathy associated with type 2 diabetes mellitus PATRICIA (obstructive sleep apnea) Hemorrhoids Asthma Type 2 diabetes mellitus with mild nonproliferative diabetic retinopathy without macular edema, bilateral Type 2 diabetes mellitus with hyperglycemia, with long-term current use of insulin Essential hypertension Dyslipidemia Menometrorrhagia Polypharmacy Depression Allergic rhinitis Venous insufficiency Anemia Obesity Constipation HTN (hypertension) Surgical History History of esophagogastroduodenoscopy (EGD) Hx of colonoscopy History of bilateral tubal ligation Family History Father No problems noted. Mother Heart disease HTN (hypertension) Diabetes Pacemaker Depression Family/Other Diabetes Daughter Cancer Social History Household Members: None Are you a primary care transition mgr to a significant other at home: No Do you presently have visiting nurse or other home services: No Alcohol intake: never Patient Tobacco Use Status: Never used Tobacco Sexual orientation: Straight/Heterosexual Gender identity: Female Female Reproductive History Menstrual Age of Menarche: 10 Review of Systems Const Denies fatigue, Denies fever(s), Denies night sweats, Denies poor appetite and Denies weight loss Eyes Details: glasses Reports requires corrective lenses ENT Reports Normal hearing present, Denies dental pain, Denies dysphagia, Denies hearing loss, Denies mouth pain, Denies odynophagia, Denies throat swelling, Denies tongue swelling and Reports other (Dentition adequate) Card Reports no additional complaints Resp Reports no additional complaints GI Details: Denies abdominal pain, Denies melena, Denies bloating, Denies hematochezia, Reports constipation, Denies GI cramping, Denies dysphagia, Denies excessive flatus, Reports early satiety, Reports heartburn, Denies diarrhea, Denies nausea, Denies odynophagia, Denies vomiting and Denies hematemesis Musc Details: s/p fall on right shoulder Reports arthralgias Skin/Breast Denies pruritus, Denies lesions, Denies rash and Denies jaundice Neuro Reports Normal hearing present and Denies Abnormal speech present Endo Denies fatigue Aller/Immun Denies throat swelling and Denies tongue swelling Physical Exam Const General: cooperative, no acute distress, well developed and well groomed Nutritional Appearance: well nourished and overweight Orientation/consciousness: oriented to person, oriented to place and oriented to time Limitations: language barrier HEENT Head: Yes normocephalic and Yes atraumatic Eyes General: appearance normal, both eyes and all related structures Pupils: Equal, round and reactive pupils present Neck Neck: Yes normal visual inspection and Yes no lymphadenopathy Thyroid: Thyroid normal Resp Effort & Inspection: normal respiratory effort and able to speak in complete sentences Auscultation: clear to auscultation bilaterally Cardio Rate: regular rate Rhythm: regular rhythm Heart sounds: Normal, physiologic split S2 sound present Peripheral pulses: radial pulses present and posterior tibial pulses present GI Inspection: No distended, No Abdominal panniculus present and Yes obesity Palpation (GI): Soft to palpation, nontender, no guarding, not rigid and No hepatosplenomegaly present Percussion: Yes normal to percussion Auscultation: normal bowel sounds Rectal Exam - Female: deferred Skin General skin exam: no rashes or lesions noted, turgor normal, skin not dry, no jaundice, No spider nevi and no striae Rashes: no rashes Nails: normal Neuro General: oriented to person, oriented to place and oriented to time Cranial nerves: Yes Equal, round and reactive pupils present and Yes Normal hearing present Speech: No Abnormal speech present Extrem General: Yes normal to inspection, No clubbing, No cyanosis and No edema Psych Appearance: grossly normal and well kempt Mental Status: mental status grossly normal Speech and movement: Normal speech and movement present Affect: normal affect Attitude: cooperative Thought process: Normal thought process present and not confabulating Thought content: Normal thought content present Insight: Limited insight present (Psych) Judgement: Limited judgement present (Psych) Assessment & Plan Assessment & Plan (1) Gastroparesis: Code(s): K31.84 - Gastroparesis Category: Medical (2) GERD (gastroesophageal reflux disease): Code(s): K21.9 - Gastro-esophageal reflux disease without esophagitis Category: Medical (3) Irritable bowel syndrome with both constipation and diarrhea: Code(s): K58.2 - Mixed irritable bowel syndrome Category: Medical (4) Cystocele with uterine prolapse: Comment: Moderate uterine prolapse Central and right paravaginal cystocele Code(s): N81.4 - Uterovaginal prolapse, unspecified Category: Medical Plan STATELESS #dtr translates per pt request She continues on her carafate, pantoprazole bid, senna and reglan. I notice that she is quite overdue for a colonoscopy, unless she had one at another institution since 2009. She denies this. We discuss colonoscopy and also I show them the Cologuard video, as she did not have polyps and there is no known FHX of crc or polyps She opts for COloguard. She still has some breakthrough of HB and some reflux, and I advie using TUMS. Given her multiple complicating factors including gastroparesis and Ozempic use I think she needs to consider more dietary triggers etc. ROV 8 - 10 weeks. Medications: Refilled metoclopramide HCl 10 mg PO QIDACHS 120 tabs 6RF K31.84 - Gastroparesis pantoprazole 40 mg PO BID 180 tabs 2RF K21.9 - Gastro-esophageal reflux disease without esophagitis, K29.70 - Gastritis, unspecified, without bleeding sucralfate (Carafate) 20 mL PO DAILY 420 mL 3RF K29.70 - Gastritis, unspecified, without bleeding, R11.2 - Nausea with vomiting, unspecified Coding Level of Care Code Est Pt Level 3 (35557) Diagnoses Gastroparesis K31.84 GERD (gastroesophageal reflux disease) K21.9 Irritable bowel syndrome with both constipation and diarrhea K58.2 Cystocele with uterine prolapse N81.4
[2024-06-07 12:46] VITALS: BP 134/73; PULSE 67; BMI 27.4
--- OUTSIDE RECORDS SUMMARY | 2024-06-07 14:57 | XMS_ITS | Encounter Summary ---
Author Organization [employer] [facility] Address [address] [facility] 7t [place] [address] Care Team Providers Care Air Table Operator Name Role Phone Neyda Chacko MD Primary Care Provider [phone] Encounter Details Date Type Department Care Team ([facility] Contact Info) Description 03/10/2022 Telephone [facility] [address] [place] [address] [phone] Neyda Chacko MD [address] [place] [address] [phone] Social History Tobacco Use Types Packs/Day Years [...] Upcoming Encounters Date Type Department Care Team ([facility] Contact Info) Description 07/11/2024 1:15 PM EDT Office Visit [facility] [address] [place] [address] [phone] Neyda Chacko MD [address] [place] [address] documented as of this encounter Visit Diagnoses Not on filedocumented in this encounter Care Teams Air Table Operator Relationship Specialty Start Date End Date Neyda Chacko MD [address] [place] [address] PCP - General Family Medicine 02/22/18 documented as of this encounter
--- OUTSIDE RECORDS SUMMARY | 2024-06-07 14:57 | XMS_ITS | Encounter Summary ---
Author Organization [employer] Address [address] [facility] 7t [place] [address] Care Team Providers Care Shoulder Pad Molder Name Role Phone Neyda Chacko MD Primary Care Provider [phone] Reason for Visit * Reason Onset Date Comments Durable Medical Equipment 01/26/2023 Encounter Details Date Type Department Care Team (Late st Contact Info) Description 01/26/2023 Telephone [facility] [address] [place], [place] [phone] Neyda Chacko MD [address] [place], [place] [phone] Durable Medical Equipment Social History Tobacco Use [...] readings would like the patient to use [employer] System documented in this encounter Plan of Treatment Upcoming Encounters Date Type Department Care Team (Late st Contact Info) Description 07/11/2024 1:15 PM EDT Office Visit [facility] [address] [place] [address] Neyda Chacko MD [address] [place] [address] documented as of this encounter Visit Diagnoses Not on filedocumented in this encounter Additional Health Concerns Assessment Noted Time PHQ-9 Depression Total Score: 5 03/12/19 23 10:44 AM EST documented as of this encounter Care Teams Shoulder Pad Molder Relationship Specialty Start Date End Date Neyda Chacko MD [address] [place] [address] PCP - General Family Medicine 02/22/18 documented as of this encounter
--- OUTSIDE RECORDS SUMMARY | 2024-06-07 14:57 | XMS_ITS | Encounter Summary ---
Author Organization [employer] Address [address] [facility] 7t [place] [address] Care Team Providers Care Closing Supervisor Name Role Phone Neyda Chacko MD Primary Care Provider [phone] Encounter Details Date Type Department Care Team (Late st Contact Info) Description 03/12/2022 Abstract [facility] [address] [place] [address] [phone] Neyda Chacko MD [address] [place], [place] [phone] Social History Tobacco Use Types Packs/Day Years [...] Upcoming Encounters Date Type Department Care Team ([facility] Contact Info) Description 07/11/2024 1:15 PM EDT Office Visit [facility] [address] [place] [phone] Neyda Chacko MD [address] [place] [address] documented as of this encounter Visit Diagnoses Not on filedocumented in this encounter Additional Health Concerns Assessment Noted Time PHQ-9 Depression Total Score: 5 03/12/19 23 10:44 AM EST documented as of this encounter Care Teams Closing Supervisor Relationship Specialty Start Date End Date Neyda Chacko MD [address] [place] [address] PCP - General Family Medicine 02/22/18 documented as of this encounter
--- OUTSIDE RECORDS SUMMARY | 2024-06-07 14:57 | XMS_ITS | Encounter Summary ---
Author Organization [employer] [facility] Address [address] [facility] 7t [place] [address] Care Team Providers Care Business System Manager Name Role Phone Neyda Chacko MD Primary Care Provider [phone] Encounter Details Date Type Department Care Team (Latest Contact Info) Description 01/03/2019 Abstract [facility] CONVERSIONS Dental, Provider, DDS Social History [...] Description 07/11/2024 1:15 PM EDT Office Visit [facility] MED[facility]INE [address] [place] [address] Neyda Chacko MD [address] [place] [address] documented as of this encounter Visit Diagnoses Not on filedocumented in this encounter Care Teams Business System Manager Relationship Specialty Start Date End Date Neyda Chacko MD [address] [place] [address] PCP - General Family Medicine 02/22/18 documented as of this encounter
--- OUTSIDE RECORDS SUMMARY | 2024-06-07 14:57 | XMS_ITS | Encounter Summary ---
Author Organization [employer] Address [address] [facility] 7t [place] [address] Care Team Providers Care Office Auditor Name Role Phone Neyda Chacko MD Primary Care Provider [phone] Encounter Details Date Type Department Care Team (Late st Contact Info) Description 01/26/2023 Orders Only [facility] [address] [place], [place] [phone] Neyda Chacko MD [address] [place], [place] [phone] Social History Tobacco Use Types Packs/Day Years [...] Description 07/11/2024 1:15 PM EDT Office Visit [facility] [address] [place] [address] Neyda Chacko MD [address] [place] [address] documented as of this encounter Visit Diagnoses Not on filedocumented in this encounter Additional Health Concerns Assessment Noted Time PHQ-9 Depression Total Score: 5 03/12/19 23 10:44 AM EST documented as of this encounter Care Teams Office Auditor Relationship Specialty Start Date End Date Neyda Chacko MD [address] [place] [address] PCP - General Family Medicine 02/22/18 documented as of this encounter
--- OUTSIDE RECORDS SUMMARY | 2024-06-07 14:57 | XMS_ITS | Encounter Summary ---
Author Organization [employer] [facility] Address [address] [facility] 7t [place] [address] Care Team Providers Care Design Engineer Name Role Phone Neyda Chacko MD [...] Description 07/11/2024 1:15 PM EDT Office Visit [facility] [address] [place] [phone] Neyda Chacko MD [address] [place] [address] documented as of this encounter Visit Diagnoses Not on filedocumented in this encounter Care Teams Design Engineer Relationship Specialty Start Date End Date Neyda Chacko MD [address] [place] [phone] PCP - General Family Medicine 02/22/18 documented as of this encounter
--- OUTSIDE RECORDS SUMMARY | 2024-06-07 14:57 | XMS_ITS | Encounter Summary ---
Author Organization [employer] [facility] Address [address] [facility] 7t [place] [address] Care Team Providers Care Medical Assembly Name Role Phone Neyda Chacko MD Primary Care Provider Encounter Details Date Type Department Care Team (Late st Contact Info) Description 03/06/2022 Orders Only [facility] [address] [place] [address] [phone] Misa Tillman LPN Social History Tobacco Use [...] Description 07/11/2024 1:15 PM EDT Office Visit [facility] [address] [place] [phone] Neyda Chacko MD [address] [place] [phone] documented as of this encounter Visit Diagnoses Not on filedocumented in this encounter Care Teams Medical Assembly Relationship Specialty Start Date End Date Neyda Chacko MD [address] [place] [address] [phone] PCP - General Family Medicine 02/22/18 documented as of this encounter
--- OUTSIDE RECORDS SUMMARY | 2024-06-07 14:57 | XMS_ITS | Encounter Summary ---
Author Organization [employer] [facility] Address [address] [facility] 7t [place] [address] Care Team Providers Care Locker Room Clerk Name Role Phone Neyda Cahcko MD Primary Care Provider [phone] Reason for Visit * Reason Comments Med Refill Encounter Details Date Type Department Care Team (Late st Contact Info) Description 01/28/2022 Refill [facility] [address] [place] [address] [phone] [facility] [address] [place] [address] Type 2 diabetes mellitus with hyperglycemia (CMS/HCC) [...] 07/11/2024 1:15 PM EDT Office Visit [facility] [address] [place] [address] [phone] Neyda Chacko MD [address] [place] [address] [phone] documented as of this encounter Visit Diagnoses Diagnosis Type 2 diabetes mellitus with hyperglycemia (CMS/HCC) documented in this encounter Care Teams Locker Room Clerk Relationship Specialty Start Date End Date Neyda Chacko MD [address] [place] [address] PCP - General Family Medicine 02/22/18 documented as of this encounter
--- OUTSIDE RECORDS SUMMARY | 2024-06-07 14:57 | XMS_ITS | Encounter Summary ---
Author Organization [employer] Address [address] [facility] 7t [place] [address] Care Team Providers Care Diesel Engine Inspector Name Role Phone Neyda Chacko MD Primary Care Provider [phone] Reason for Visit * Reason Onset Date Comments Appointment Request 02/19/2023 Encounter Details Date Type Department Care Team ([facility] st Contact Info) Description 02/19/2023 Telephone [facility] [address] [place], [place] [phone] Neyda Chacko MD [address] [place], [place] [phone] Appointment Request Social History Tobacco Use Types [...] daughter requesting to reschedule appt for 02/19 WELLNESS ASSISTANT CDTM HTN *IP* documented in this encounter Plan of Treatment Upcoming Encounters Date Type Department Care Team (Late st Contact Info) Description 07/11/2024 1:15 PM EDT Office Visit [facility] [address] [place] [address] Neyda Chacko MD [address] [place] [address] documented as of this encounter Visit Diagnoses Not on filedocumented in this encounter Additional Health Concerns Assessment Noted Time PHQ-9 Depression Total Score: 5 03/12/19 23 10:44 AM EST documented as of this encounter Care Teams Diesel Engine Inspector Relationship Specialty Start Date End Date Neyda Chacko MD [address] [place] [address] PCP - General Family Medicine 02/22/18 documented as of this encounter
--- OUTSIDE RECORDS SUMMARY | 2024-06-07 14:58 | XMS_ITS | Clinical Summary ---
Author Organization [address] [facility] Address [address] [place] [address] Phone Care Team Providers Care Hot Dimpling Machine Operator Name Role Phone Physician, Pcp Unknown Primary Care Provider Heena vailable Allergies No known active allergies Encounters Date Type Department Care Team Description 04/04/2024 10:00 AM EST Office Visit [facility] [address] [address] Alan Crisostomo, DPTisha Metatarsalgia of both feet (Primary Dx); Dermatophytosis of nail; Verruca plantaris; Type II diabetes mellitus with peripheral circulatory disorder (CMS/HCC V24, CMS/HCC V28); Diabetic mononeuropathy simplex (CMS/HCC V24, CMS/HCC V28); Pain in toe of left foot; Pain [...] 04/04/2024 9:58 AM EST Plan of Treatment Health Maintenance Due Date [...] age to complete this topic Meningococcal B Vaccine Aged Out No l onger eligible based on patient's age to complete this topic RSV Immunization Patients Under 20 months Aged Out No longer eligible based on patient's age to complete this topic Varicella Vaccines Aged Out No longer eligible based on patient's age to complete this topic Insurance , [address] [address] [facility] [employer] Member Subscriber Plan / Payer (Ef fective 2024-Present) Name:Jaimee Guzman I Relation to Subscriber:Self Name:Guzman, Jaimee Pocne Payer ID:[id number] Group ID:Not on file Type:Not on file Address: [address] [address] Care Teams Hot Dimpling Machine Operator Relationship Specialty Start Date End Date Physician, Pcp Unknown PCP - General 03/20/24
--- OUTSIDE RECORDS SUMMARY | 2024-06-07 14:58 | XMS_ITS | Encounter Summary ---
Author Organization [employer] Address [address] [facility] 7t [place] [address] Care Team Providers Care News Library Director Name Role Phone Neyda Chacko MD Primary Care Provider [phone] Reason for Visit * Reason Onset Date Comments may recall 06/07/2024 Encounter Details Date Type Department Care Team ([facility] st Contact Info) Description 06/07/2024 Telephone [facility]INE [address] [place], [place] [phone] Neyda Chacko MD [address] [place], [place] [phone] may recall Social History Tobacco Use Types Packs/Day Years [...] Telephone Encounter - Mariel Aragon [place] - 06/07/2024 2:38 PM EDT ..Telephone call to patient to schedule the following recall: Visit type: Follow up Appointment notes: RV DM / HTN / breast. Patient agree to appointment on july 11 at 3 PM with Ginna. documented in this encounter Plan of Treatment Upcoming Encounters Date Type Department Care Team (Late st Contact Info) Description 07/11/2024 1:15 PM EDT Office Visit [facility] [address] [place] [address] Neyda Chacko MD [address] [place] [address] documented as of this encounter Visit Diagnoses Not on filedocumented in this encounter Additional Health Concerns Assessment Noted Time PHQ-9 Depression Total Score: 7 06/15/19 24 10:57 AM EDT documented as of this encounter Care Teams News Library Director Relationship Specialty Start Date End Date Neyda Chacko MD [address] [place] [address] PCP - General Family Medicine 02/22/18 documented as of this encounter
--- OUTSIDE RECORDS SUMMARY | 2024-06-07 14:58 | XMS_ITS | Encounter Summary ---
Author Organization [employer] Address [address] [facility] 7t [place] [address] Care Team Providers Care Physical Design Engineer Name Role Phone Neyda Chacko MD Primary Care Provider [phone] Reason for Visit * Reason Onset Date Comments Med Refill 10/27/2023 Encounter Details Date Type Department Care Team (Late st Contact Info) Description 10/27/[address] [facility] [address] [place], [place] [phone] Neyda Chacko MD [address] [place], [place] [phone] Med Refill Social History Tobacco Use Types [...] MG/3ML solution pen-injector To be sent to: [facility] - [place], [place] - [address] [facility] documented in this encounter Plan of Treatment Upcoming Encounters Date Type Department Care Team (Late st Contact Info) Description 07/11/2024 1:15 PM EDT Office Visit [facility] [address] [place] [address] Neyda Chacko MD [address] [facility] [place] [address] documented as of this encounter Visit Diagnoses Not on filedocumented in this encounter Additional Health Concerns Assessment Noted Time PHQ-9 Depression Total Score: 7 06/15/19 24 10:57 AM EDT documented as of this encounter Care Teams Physical Design Engineer Relationship Specialty Start Date End Date Neyda Chacko MD [address] [place] [address] PCP - General Family Medicine 02/22/18 documented as of this encounter
--- OUTSIDE RECORDS SUMMARY | 2024-06-07 14:58 | XMS_ITS | Encounter Summary ---
Author Organization [email or web address] Address [address] [facility] [address] [place] [address] Care Team Providers Care Splunk Architect Name Role Phone Neyda Chacko MD Primary Care Provider [phone] Encounter Details Date Type Department Care Team ([facility] st Contact Info) Description 12/16/2023 Orders Only [facility] [address], [place] [phone] eNyda Chacko MD [address] [place], [place] [phone] Leukopenia, unspecified type (Primary Dx) Social History [...] Description 07/11/2024 1:15 PM EDT Office Visit [facility] [address], [place] [phone] Neyda Chacko MD [address] [place] [address] documented as of this encounter Procedures Procedure [...] Final Resul t [facility] [address] [place] [address] [phone] * (ABNORMAL) CBC auto differential (12/17/2023 [...] Abs Auto 0.000 0.0 - 0.012 X10*3/uL [facility] Blood Venous blood specimen / Unknown 12/17/2023 12:02 PM EDT 12/17/2023 1:19 PM EDT us Neyda Chacko MD LAB BLOOD ORDERABLES Final Resul t [facility] [address] [place] [phone] [phone] documented in this encounter Visit Diagnoses Diagnosis Leukopenia, unspecified type- Primary documented in this encounter Additional Health Concerns Assessment Noted Time PHQ-9 Depression Total Score: 7 06/15/19 24 10:57 AM EDT documented as of this encounter Care Teams Splunk Architect Relationship Specialty Start Date End Date Neyda Chacko MD [address] [place] [address] PCP - General Family Medicine 02/22/18 documented as of this encounter
--- OUTSIDE RECORDS SUMMARY | 2024-06-07 14:58 | XMS_ITS | Encounter Summary ---
Author Organization [employer] [facility] Address [address] [place] [address] Care Team Providers Care Founder Chairman And Chief Creative Officer Name Role Phone Neyda Chacko MD Primary Care Provider [phone] Reason for Visit * Reason Onset Date Comments Med Refill 09/03/2022 Encounter Details Date Type Department Care Team (Late st Contact Info) Description 09/03/2022 Telephone [facility] [address] [place], [place] [phone] Neyda Chacko MD [address] [place], [place] [phone] Med Refill Social History Tobacco Use Types [...] Description 07/11/2024 1:15 PM EDT Office Visit [facility] [address] [place] [address] Neyda Chacko MD [address] [place] [address] documented as of this encounter Visit Diagnoses Not on filedocumented in this encounter Additional Health Concerns Assessment Noted Time PHQ-9 Depression Total Score: 5 03/12/19 23 10:44 AM EST documented as of this encounter Care Teams Founder Chairman And Chief Creative Officer Relationship Specialty Start Date End Date Neyda Chacko MD [address] [place] [phone] PCP - General Family Medicine 02/22/18 documented as of this encounter
--- OUTSIDE RECORDS SUMMARY | 2024-06-07 14:58 | XMS_ITS | Clinical Summary ---
Author Organization [employer] Address [address] [facility] [place] [address] [place] [address] Care Team Providers Care Human Resources Analyst Name Role Phone Neyda Chacko MD Primary Care Provider [phone] Allergies Active Allergy Reactions Criticality Noted Date Comments Pioglitazone 03/14/2010 Other reaction(s): unspecified Medications Blood Glucose Monitoring Suppl ([employer] [place] [employer]) w/Device kit USE DIRECTED Active busPIRone [...] needed at bedtime. Active Continuous Blood Gluc Home Insurance Agent ([employer] Joelle 2 [place]) device Use as directed 1 each 1 [...] hyperglycemia, with long-term current use of insulin ([facility]) USE UP TO FIVE TIMES DAILY [...] hyperglycemia, with long-term current use of insulin ([facility]) TAKE 1 TABLET BY MOUTH EVERY MORNING [...] hyperglycemia, with long-term current use of insulin ([facility]/HCC) USE THREE TO FOUR TIMES DAILY WITH humalog 120 each 11 025 Active Ozempic, 2 MG/DOSE, 8 MG/3ML solution pen-injectorInd ications:Type 2 diabetes mellitus with hyperglycemia, with long-term current use of insulin ([facility]) Inject 2 MG SUBCUTANEOUSLY EVERY 7 DAYS [...] GLP-1 agonist for DM -[place]ed [place] [facility], last seen in June 2023 -continue metoclopramide 10 mg tid, with caution due to its side effect Assessment & Plan (05/24/2022 3:57 PM EDT): -on GLP-1 agonist for DM -seen by GI on 03/19/22, restarted on metoclopramide -continue metoclopramide 10 mg tid Peripheral arterial occlusive disease 08/13/2016 Assessment & Plan (04/04/2024 11:42 AM EST): -Followed by [facility] provider -most recent PAWAN doppler on 08/13/21, moderate stenosis in b/l SFA and popliteal arteries -continue working on risk factor management -pt has been on cilostazol since 2017 - Ordered VASC US Lower Extremity Venous Insufficiency Bilateral - Ordered Vascular US lower extremity arterial duplex bilateral with VEENA Assessment & Plan (06/15/2023 11:00 AM EDT): -Followed by [facility] provider -most recent PAWAN doppler on 08/13/21, moderate stenosis in b/l SFA and popliteal arteries -continue working on risk factor management -pt has been on cilostazol since 2017 Assessment & Plan (10/19/2022 6:00 AM EDT): -[facility] -most recent PAWAN doppler on 08/13/21, [...] 5:49 PM EST): -Followed by [facility] provider -most recent PAWAN doppler on 08/13/21, moderate stenosis in b/l SFA and popliteal arteries -continue working on risk factor management -pt has been on cilostazol since 2017 Hemorrhoids 07/01/2015 Chronic recurrent major depressive disorder 02/23 Assessment & Plan (06/15/2023 11:01 AM EDT): [facility] provider: Olayinka Joiner Current medications: venlafaxine; buspirone; hydroxyzine Continue following recommendation by S providers Patient lost her in Jan 2020 due to COVID and has been grieving. Patient is currently with her family and seems to have good support. Continue current S. Assessment & Plan (10/19/2022 6:03 AM EDT): [facility] provider: Olayinka Joiner Current medications: venlafaxine; buspirone; hydroxyzine Continue following recommendation by S providers Patient lost her in Jan 2020 due to COVID and has been grieving. Patient is currently with her family and seems to have good support. Continue current S. Assessment & Plan (05/24/2022 4:01 PM EDT): [facility] provider: Olayinka Cortez Counseling Current medications: venlafaxine; buspirone; hydroxyzine Continue following recommendation by S providers Patient lost her in Jan 2020 due to COVID and has been grieving. Patient is currently with her family and seems to have good support. Continue current S. Assessment & Plan (03/15/2022 5:50 PM EST): [facility] provider: Olayinka Cortez Counseling Current medications: venlafaxine; [...] dose in May 2023. -Followed by [facility], last seen on 09/17/22 -Continue working on [...] dose in May 2023. -Followed by [facility], last seen on 09/17/22 -Continue working on [...] BB dose in May 2023. -Followed by [facility], last seen on 09/17/22 -Continue working on [...] <130/80 per ACC/AHA -BP slightly low. Her physical scientist has suggested to taper down her diuretics since she had GSV ablation. -Followed by [facility], last seen on 09/17/22 -Continue current lifestyle [...] per ACC/AHA -BP within acceptable range. Her physical scientist has suggested to taper down her diuretics since she had GSV ablation. -Followed by [facility], last seen on 09/17/22 -Continue current lifestyle [...] per ACC/AHA -BP within acceptable range. Her physical scientist has suggested to taper down her diuretics since she had GSV ablation. -Followed by [facility], last seen on 12/10/21 -Continue current lifestyle [...] per ACC/AHA -BP within acceptable range. Her physical scientist has suggested to taper down her diuretics since she had GSV ablation. -[facility], last seen on 12/10/21 -Continue current lifestyle [...] 7.9% on 12/21/23 -Previously following [facility], discharged in May 2023 due to stability -Continue Tresiba 70 units qAM (discrepancy from junior buyer's note) -Continue Humalog 10 units before breakfast, [...] 7.9% on 12/21/23 -Previously following with [facility], discharged in May 2023 due to stability -Continue Tresiba 70 units qAM (discrepancy from junior buyer's note) -Continue Humalog 10 units before breakfast, [...] on 06/15/23, improving -Previously following with [facility], discharged in May 2023 due to stability -Continue Tresiba 70 units qAM (discrepancy from junior buyer's note) -Continue Humalog 10 units before breakfast, [...] PM EDT): -A1C 7.2% on 06/15/23, improving -Test Manager: [facility], last seen on Sep 2022 -Continue Tresiba 70 units qAM (discrepancy from junior buyer's note) -Continue Humalog 10 units before breakfast, [...] yet with hypoglycemia. 8.6% in Feb 2022 -Test Manager: [facility], last seen on Sep 2022 -Continue Tresiba 70 units qAM (discrepancy from junior buyer's note) -Continue Humalog 10 units before breakfast, [...] PM EDT): -A1C 8.6% today 03/11/22, improving -Test Manager: [facility], last seen on 02/13/22 -Continue Tresiba 70 units qAM (discrepancy from junior buyer's note) -Continue Humalog 8 units before breakfast, [...] PM EST): -A1C 8.6% today 03/11/22, improving -Test Manager: [facility], last seen on 02/13/22 -Continue Tresiba 70 units qAM (discrepancy from junior buyer's note) -Continue Humalog 8 units before breakfast, [...] Encounters Date Type Department Care Team Description 06/07/2024 Telephone [facility] [address] [place] [address] Neyda Chacko MD may recall 05/24/2024 9:40 AM EDT Office Visit [facility] [address] [place] [address] Dina Torres NP Acute pain of right shoulder (Primary Dx); Elevated blood pressure reading in office with diagnosis of hypertension 05/24/2024 Telephone [facility] [address] [place] [address] Dina Torres NP 05/22/[address] [address] Suzetet Cárdenas RN Referral; Imaging Orders 05/20/2024 Orders Only [facility] [address] [place] [address] Neyda Chacko MD Chronic right shoulder pain (Primary Dx) 05/19/2024 Telephone [facility] [address] [place] [address] Neyda Chacko MD Nurse Triage 05/18/2024 Refill [facility] [address] [place] [address] Neyda Chacko MD 05/04/[address] [address] Neyda Chacko MD Nurse Triage 05/04/2024 Telephone [facility] [address] [place] [address] Neyda Chacko MD 04/15/2024 Refill [facility] [address] [place] [address] Neyda Chacko MD Peripheral arterial occlusive disease (CMS/HCC) 04/13/2024 Refill [facility] [address] [place] [address] Neyda Chacko MD Type 2 diabetes mellitus with hyperglycemia, with long-term current use of insulin (CMS/HCC) 04/12/2024 Orders Only [facility] External Provider, 04/03/2024 Telephone [facility] [address] [place] [address] Morena Mcneill RN Medication Question 03/30/2024 11:00 AM EST Office Visit [facility] [address] [place] [address] Neyda Chacko MD Type 2 diabetes mellitus with hyperglycemia, with long-term current use of insulin (CMS/HCC) (Primary Dx); Essential hypertension; Mass of axillary tail of right breast; Transaminitis; Dyslipidemia; Metabolic dysfunction-associate d steatotic liver disease (MASLD); Peripheral venous insufficiency; Peripheral arterial occlusive disease (CMS/HCC); Weight loss; Dietary counseling; Exercise counseling; Overweight 03/30/2024 Travel 03/28/2024 Telephone [facility] [address] [place] [address] Mariel Aragon MA chart prep 03/19/2024 Refill [facility] [address] [place] [address] Neyda Chacko MD Type 2 diabetes mellitus with hyperglycemia, with long-term current use of insulin (CMS/HCC) from Last 3 Months Immunizations Name Administration [...] 07/11/2024 1:15 PM EDT Office Visit [facility] [address] [place] [address] Neyda Chacko MD [address] [place] [address] Health Maintenance Due Date Last Done Comments [...] hyperglycemia, with long-term current use of insulin ([facility]) Dyslipidemia DIABETES EYE EXAM Routine 12/25/2022 [...] AM EDT Narrative 05/24/2024 10:41 AM EDT ?[facility] ?[address] ?[place] [address] ?XRay Report ? Signed ? Patient: Jaimee Guzman I ?MR#: [id number] ?? 2030 ? : 1960 ?Acct:[id number] ? Age/Sex: 64 / F ?ADM Date: 05/24/24 ? Loc: HO.HHCX ? Attending : Dina Torres ? Ordering Physician: Dina Torres ?? Date of Service: 05/24/24 ?? Procedure(s): XR shoulder RT min 2V ?? Accession Number(s): [id number] ? cc: Dina Torres ? EXAMINATION: ??XR [...] DD/ 1009 ? TD/TT: 05/24/24 1022 ? Sheep Boner: ? Procedure Note Donhardyaxel, Image - 05/24/[address] [address] XRay Report Signed Patient: Jaimee Guzman IMR#: [id number] 2030 : 9Acct:[id number] Age/Sex: 64 / FADM Date: 05/24/24 Loc: HO.HHCX Attending Dr: Dina Torres Ordering Physician: Dina Torres Date of Service: 05/24/24 Procedure(s): XR shoulder RT min 2V Accession Number(s): [id number] cc: Dina Torres EXAMINATION: XR SHOULDER 2 [...] 05/24/24 1037 DD/ 1009 TD/TT: 05/24/24 1022 Sheep Boner: us Dina Torres HOURLY SHIFT MANAGER IMG XR PROCEDURES Edited Result - Final * VASC US Lower Extremity Venous Duplex Bilateral (05/03/2024 10:25 AM EDT) 05/03/2024 10:2 5 AM EDT Narrative [facility] - 05/03/2024 12:27 PM EDT ?[address] ?[place] [address] ? Ultrasound Report ? Signed ? Patient: Guzman,Jaimee I ?MR#: [id number] ?? 2030 ? : 1960 ?Acct:[id number] ? Age/Sex: 64 / F ?ADM Date: 05/03/24 ? Loc: HO.US ? Attending Dr: Neyda Chacko MD ? Ordering Physician: Neyda Chacko MD ?? Date of Service: 05/03/24 ?? Procedure(s): US venous duplex LE BI ?? Accession Number(s): [id number] ? cc: Neyda Chacko MD ? EXAMINATION: [...] ? There is no evidence of a Pinzno's cyst. ? 4. SUPERFICIAL ULTRASOUND WITH DOPPLER [...] Pratt MD ??05/03/2024 12:24 PM ?? EDT RP ? Dictated By: ?Bhupendra Armendariz MD ? Signed By: ?<Electronically signed by Bhupendra Cárdenas MD in OV> ? 05/03/24 1224 ? DD/ 1025 ? TD/TT: 05/03/24 1103 ? Sheep Boner: ? Procedure Note Abhishek Cowart - 05/03/[address] [address] Ultrasound Report Signed Patient: Jaimee Guzman IMR#: [id number] 2030 : 9Acct:[id number] Age/Sex: 64 / FADM Date: 05/03/24 Loc: HO.US Attending Dr: Neyda Chacko MD Ordering Physician: Neyda Chacko MD Date of Service: 05/03/24 Procedure(s): US venous duplex LE BI Accession Number(s): [id number] cc: Neyda Chacko MD EXAMINATION: US LOWER [...] 05/03/24 1224 DD/ 1025 TD/TT: 05/03/24 1103 Sheep Boner: us Neyda Chacko MD CV VASCULAR PROCEDURES Final Res ult [facility] [address] [place] [address] * US Abdomen Comp w elastography (05/03/2024 10:04 AM EDT) Anatomical Region Laterality Modality Abdomen Ultrasound 05/03/2024 10:0 4 AM EDT Narrative 05/03/2024 12:23 PM EDT ?[address] ?[place] [address] ? Ultrasound Report ? Signed ? Patient: Guzman,Jaimee I ?MR#: [id number] ?? 2030 ? : 1960 ?Acct:[id number] ? Age/Sex: 64 / F ?ADM Date: 05/03/24 ? Loc: HO.US ? Attending Dr: Neyda Chacko MD ? Ordering Physician: Neyda Chacko MD ?? Date of Service: 05/03/24 ?? Procedure(s): US abdomen comp w elastography ?? Accession Number(s): [id number] ? cc: Nyeda Chacko MD ? EXAMINATION: ??US ABDOMEN COMPLETE [...] DD/ 1004 ? TD/TT: 05/03/24 1019 ? Sheep Boner: ? Procedure Note Donalixter, Image - 05/03/2024 [place] [address] Ultrasound Report Signed Patient: Jaimee Guzman IMR#: [id number] 2030 : 9Acct:[id number] Age/Sex: 64 / FADM Date: 05/03/24 Loc: HO.US Attending Dr: Neyda Chacko MD Ordering Physician: Neyda Chacko MD Date of Service: 05/03/24 Procedure(s): US abdomen comp w elastography Accession Number(s): [id number] cc: Neyda Chacko MD EXAMINATION: US ABDOMEN COMPLETE WITH [...] 05/03/24 1220 DD/ 1004 TD/TT: 05/03/24 1019 Sheep Boner: us Neyda Chacko MD [facility] US PROCEDURES Final Result * Hematoxylin and Eosin Stain (04/12/2024 10:44 AM EST) 04/12/2024 10:4 4 AM EST 04/12/2024 11:16 AM EST [facility] - 04/13/2024 4:09 PM EST ----- ------- Name: Jaimee Guzman I ? Age/Sex: 64/F ? : 1960 Unit#: [id number] ?? Attend Dr: Walter Moon MD ?Re04/12/24 ?Status: DEP REF ? Location: HO.MAMMO ?Disch: ? ----- ------- SPEC : [id number] ?RECD: 04/12/24-6 ? STATUS: ??SOUT ? REQ NUM: [id number] ? HUMBERTO: 04/12/24 ? SUBM DR: Nereyda [...] Copies To: ?? Walter Moon MD ?? [facility] ?? [address] ?? [place] [address] ?? [phone] ?? Neyda Chacko MD ?? [facility] ?? [address] ?? [place] [address] ?? [phone] ? CONTINUED ON NEXT PAGE ----- ------- Name: Jaimee Guzman I ? Age/Sex: 64/F ? : 1960 Unit#: [id number] ?? Attend Dr: Walter Moon MD ?Re04/12/24 ?Status: DEP REF ? Location: HO.MAMMO ?Disch: ? ----- ------- SPEC : [id number] ?RECD: 04/12/24-1116 ? STATUS: ??SOUT ? REQ NUM: [id number] ? HUMBERTO: 04/12/24-1044 ? SUBM DR: Nereyda Carvajal DO ? ENTERED: ??04/12/24-4 ?SP TYPE: Surgical ? OTHR DR: Walter Moon MD ?Neyda Chacko MD ORDERED: ??HE Stain/2, Gross Micro L4 ? COMMENTS: As per the specimen requisition slip the specimen is ?collected at 1044 and placed in formalin at 1052. Copies To: ??(Continued) ?? Nereyda Carvajal DO ?? [address] [facility] ?? [place] [address] ?? [phone] ----- ------- Signed (signature on file) Yash Moreno MD 04/13/24 3139 ? ----- ------- ? END OF REPORT ? us Generic External Data Provider LAB BLOOD ORDERAB LES Final Result [facility] [address] [facility] [place] [address] [phone] * US BREAST NDL CORE BIOPSY RT (04/12/2024 10:00 AM EST) Anatomical Region Laterality Modality Abdomen Ultrasound 04/12/2024 10:0 0 AM EST Narrative 04/12/2024 12:13 PM EST ? [facility] ? [address] ?[place] [address] ? Ultrasound Report ? Signed with Addenda ? Patient: Guzman,Jaimee I ?MR#: [id number] ?? 2030 ? : 1960 ?Acct:[id number] ? Age/Sex: 64 / F ?ADM Date: 04/12/24 ? Loc: HO.MAMMO ? Attending Dr: Walter Moon MD ? Ordering Physician: Walter Moon MD ?? Date of Service: 04/12/24 ?? Procedure(s): US breast ndl core biopsy RT ?? Accession Number(s): [id number] ? cc: Walter Moon MD; Neyda Chacko [...] DD/ 1000 ? TD/TT: 04/12/24 1100 ? Sheep Boner: ? Procedure Note Donalixter, Image - [facility]/19/[facility] [address] [place] [address] Ultrasound Report Signed with Esa Patient: Jaimee Guzman [facility]#: [id number] 2030 : 9Acct:[id number] Age/Sex: 64 / FADM Date: 04/12/24 Loc: NATHALY Attending Dr: Walter Moon MD Ordering Physician: Walter Moon MD Date of Service: 04/12/24 Procedure(s): US breast ndl core biopsy RT Accession Number(s): [id number] cc: Walter Moon MD; Neyda Chacko MD; [...] 04/12/24 1210 DD/ 1000 TD/TT: 04/12/24 1100 Sheep Boner: [facility] External Provider IMG US PROCEDURES Edited Result - Final * (ABNORMAL) POCT glycosylated hemoglobin (Hgb A1c) (03/30/2024 11:51 AM EST) Hemoglobin A1C 7.7(A) 4.0 - 6.0 % QC Media Lot # [id number] Lot# Expiration Date ,867 Blood Capillary blood specimen / Unknown 03/30/2024 11:51 AM EST Neyda Chacko MD POINT OF CARE TEST ENTER/EDIT OR DERABLES Final Result * POCT glucose manually resulted (03/30/2024 11:35 AM EST) Glucose Blood, POC 192 60 - 200 mg/dL QC Media Lot # [id number] Lot# Expiration Date 172,025 Blood Capillary blood specimen / Unknown 03/30/2024 11:35 AM EST Neyda Chacko MD POINT OF CARE TEST ENTER/EDIT OR DERABLES Final Result * BI US Breast Limited Right (03/15/2024 11:30 AM EST) Anatomical Region Laterality Modality Breast Right Ultrasound 03/15/2024 11:3 0 AM EST Narrative 03/15/2024 12:29 PM EST ? [facility] ? [address] ?[place] [address] ? Ultrasound Report ? Signed ? Patient: Jaimee Guzman I ?MR#: [id number] ?? 2030 ? : 1960 ?Acct:[id number] ? Age/Sex: 63 / F ?ADM Date: 03/15/24 ? Loc: HO.MAMMO ? Attending Dr: Neyda Chacko MD ? Ordering Physician: Neyda Chacko MD ?? Date of Service: 03/15/24 ?? Procedure(s): US breast RT limited mamm only ?? Accession Number(s): [id number] ? cc: Neyda Chacko MD ? EXAMINATION: [...] by Nereyda Carvajal DO in OV> ? 03/15/24 1226 ? DD/ 1130 ? TD/TT: 03/15/24 1158 ? Sheep Boner: ? Procedure Note Supa, Image - 03/15/2024 [facility] [address] [place] [address] [place], [place] [address] Ultrasound Report Signed Patient: Jaimee Guzman [facility]#: [id number] 2030 : 9Acct:[id number] Age/Sex: 63 / FADM Date: 03/15/24 Loc: NATHALY Attending Dr: Neyda Chacko MD Ordering Physician: Neyda Chacko MD Date of Service: 03/15/24 Procedure(s): US breast RT limited mamm only Accession Number(s): [id number] cc: Neyda Chacko MD EXAMINATION: MM DIAGNOSTIC [...] 03/15/24 1226 DD/ 1130 TD/TT: 03/15/24 1158 Sheep Boner: Neyda Chacko MD IMG US PROCEDURES Final Result * BI Mammogram Diagnostic Tomosynthesis Bilateral (03/15/2024 11:15 AM EST) Anatomical Region Laterality Modality Breast Bilateral Mammography 03/15/2024 11:1 5 AM EST Narrative 03/15/2024 12:29 PM EST ? [place] [facility] ? [address] ?[place], [place] [address] ? Mammography Report ? Signed ? Patient: Guzman,Jaimee I ?MR#: [id number] ?? 2030 ? : 1960 ?Acct:[id number] ? Age/Sex: 63 / F ?ADM Date: 03/15/24 ? Loc: HO.MAMMO ? Attending Dr: Neyda Chacko MD ? Ordering Physician: Neyda Chacko MD ?Results: 4Suspicio ?? us Finding ? Date of Service: 03/15/24 ?Follow Up: Biopsy Recommend ?? ed ? Procedure(s): MM tomosynthesis diagnostic BI ?? Accession Number(s): [id number] ? cc: Neyda Chacko MD ? EXAMINATION: [...] DD/ 1115 ? TD/TT: 03/15/24 1140 ? Sheep Boner: ? Procedure Note Zandrater, Image - 03/15/2024 [facility] [address] [place] [address] [place] [address] Mammography Report Signed Patient: Jaimee Guzman IMR#: [id number] 2030 : 9Acct:[id number] Age/Sex: 63 / FADM Date: 03/15/24 Loc: NATHALY Attending Dr: Neyda Chacko MD Ordering Physician: Neyda Chacko MDResults: 4Suspicio us Finding Date of Service: 03/15/24Follow Up: Biopsy Recommend ed Procedure(s): MM tomosynthesis diagnostic BI Accession Number(s): [id number] cc: Neyda Chacko MD EXAMINATION: MM DIAGNOSTIC [...] by: Nereyda Carvajal DO 03/15/2024 12:26 PM [facility] Dictated By: Nereyda Carvajal DO Signed By: <Electronically signed by Nereyda Carvajal DO in OV> 03/15/24 1226 DD/ 1115 TD/TT: 03/15/24 1140 Sheep Boner: Neyda Chacko MD IMG BI PROCEDURES Final Result * Lipid Panel with Reflex to Direct LDL (12/15/2023 11:00 AM EDT) Triglycerides 45 <150 mg/dL [facility] Comment:Desirable Triglyceri de: less than 150 mg/dLBorderline High Triglyceride 150-199 mg/dLHigh Triglyceride: 200-499 mg/dLVery High Triglyceride: greater than or equal to 5OO mg/dL Cholesterol 113 <200 mg/dL [facility] Comment:Desirable Cholestero l: less than 200 mg/dLBorderline High Cholesterol: 200-239 mg/dLHigh Cholesterol: greater than 239 mg/dL LDL Cholesterol Calculated 51 <100 mg/dL [facility] Comment:Desirable LDL: less than 100 mg/dLNear Optimal/Above Optimal LDL: 110- 129 mg/dLBorderline High LDL: 130-159 mg/dLHigh LDL: 160-189 mg/dLVery High LDL: greater than or equal to 190 mg/dL HDL Cholesterol 53 >40 mg/dL [facility] Comment:Desirable HDL: great er than 40 mg/dL Note: This HDL assay may give artificially low results in patients with liver disease. Blood 12/15/2023 11:0 0 AM EDT 12/15/2023 1:24 PM EDT Neyda Chacko MD LAB BLOOD ORDERABLES Final Resul t [facility] [address] [place] [phone] * Albumin, Random Urine W/Creatinine (12/15/2023 11:00 AM EDT) Creatinine, Urine 75.29 mg/dL [facility] Microalbumin Urine 21.0 mg/L [facility] Microalbum Creatinine Ratio Ur 27.8 <30 ug/mg cr [facility] Comment:Albumin/Creatinine R atio Reference Ranges: Normal: < 30 ug/mg creatinine Microalbuminuria: 30 - 300 ug/mg creatinineClinical Albuminuria: > 300 ug/mg creatinine Urine 12/15/2023 11:0 0 AM EDT 12/15/2023 1:12 PM EDT Neyda Chacko MD LAB URINE ORDERABLES Final Resul t [facility] [address] [place] [address] [phone] * Diabetes Eye Exam (12/25/2022) Eye Exam Normal Normal Historical Provider MD HEALTH MAINTENANCE Final Result * Colonoscopy (08/15/2020) Colonoscopy Normal Normal Historical Provider MD HEALTH MAINTENANCE Final Result * HPV E6/E7 RFLX LINDSAY 16 18/45 (12/27/2019 1:40 PM EST) HPV mRNA E6/E7 rflx Not Detected Not Detected [facility] Comment: This test was performed using the APTIMA HPV Assay ([employer] This assay detects E6/E7 viral messenger RNA (mRNA) from 14 high-risk HPV types (16,18,31,33,35,39,45,51,52,56,58,59,66,68). The analytical performance characteristics of this assay have been determined by [employer]. The modifications have not been cleared or approved by the FDA. This assay has been validated pursuant to the CLIA regulations and is used for clinical purposes. THIS TEST WAS PERFORMED AT: [employer] [address] [facility] [address] [place], [place] ??[phone] RENE MULLINS MD 12/27/2019 1:40 PM EST Ry Curtis MD HISTORICAL/NON ORDERABLE LABS Fi nal Result [facility] [address] from Last 3 Months or Most Recently Relevant to Health Maintenance Insurance [facility] D[facility] - [facility] [address] [place] [address] Care Teams Human Resources Analyst Relationship Specialty Start Date End Date Neyda Chacko MD [address] [place] [phone] PCP - General Family Medicine 02/22/18
--- OUTSIDE RECORDS SUMMARY | 2024-06-07 14:58 | XMS_ITS | Encounter Summary ---
Author Organization [employer] Address [address] [facility] 7t [place] [address] Care Team Providers Care Baggage Agent Name Role Phone Neyda Chacko MD Primary Care Provider [phone] Encounter Details Date Type Department Care Team (Late st Contact Info) Description 09/09/2023 Orders Only [facility] [address] [place], [place] [phone] Neyda Chacko MD [address] [place], [place] [phone] Essential hypertension (Primary Dx); Type 2 diabetes mellitus with hyperglycemia, with long-term current use of insulin ([facility]); Dyslipidemia; Weight loss Social History [...] Description 07/11/2024 1:15 PM EDT Office Visit [facility] [address] [place] [address] Neyda Chacko MD [address] [place] [address] documented as of this encounter Procedures Procedure Name Priority Date/Time Associated Diagnosis Comments VITAMIN B12/FOLATE, SERUM PANEL Routine 12/15/2023 11:00 AM EDT Type 2 diabetes mellitus with hyperglycemia, with long-term current use of insulin ([facility]) TSH W/REFLEX TO FT4 Routine 12/15/2023 1 1:00 AM EDT Weight loss LIPID PANEL WITH REFLEX TO DIRECT LDL Routine 12/15/2023 11:00 AM EDT Type 2 diabetes mellitus with hyperglycemia, with long-term current use of insulin ([facility]) Dyslipidemia ALBUMIN, RANDOM URINE W/CREATININE Routine 12/15/2023 11:00 AM EDT Type 2 diabetes mellitus with hyperglycemia, with long-term current use of insulin ([facility]/HCC) CBC WITH AUTO DIFFERENTIAL Routine 12/15/2023 11:00 AM EDT Weight loss COMPREHENSIVE METABOLIC PANEL Routine 12/15/2023 11:00 AM EDT Essential hypertension documented in this encounter Results * (ABNORMAL) CBC auto differential (12/15/2023 11:00 AM EDT) White Blood Count 2.5(L) 4.8 - 10.8 X10*3/uL [facility] Red Blood Count 4.42 4.20 - 5.50 X10*6/uL [facility] Hemoglobin 12.7 12.0 - 16.0 g/dl [facility] Hematocrit 38.9 37.0 - 47.0 % [facility] Mean Corpuscular Volume 88.0 80.0 - 98.0 fL [facility] Mean Corpuscular Hemoglobin 28.7 27.0 - 33.0 pg [facility] Mean Corpuscular HGB Conc 32.6 31.0 - 35.0 g/dl [facility] Red Cell Distribution Width 12.0 11.0 - 16.0 % [facility] Platelet Count 180 160 - 400 X10*3/uL [facility] Mean Platelet Volume 9.8 9.4 - 12.3 fL [facility] Neutrophils Percent Auto 36.6(L) 45 - 73 % [facility] Imm Gran Pct Auto 0.4 0.0 - 0.4 % [facility] Lymphocytes Percent Auto 49.8(H) 20 - 40 % [facility] Monocytes Percent Auto 8.8 2 - 11 % [facility] Eosinophils Percent Auto 3.6 0 - 4 % [facility] Basophils Percent Auto 0.8 0 - 2 % [facility] NRBC Pct Auto 0.0 0.0 - 0.2 /100WBC [facility] Neutrophils Absolute Auto 0.9(L) 2.0 - 8.3 x10*3/uL [facility] Imm Gran Abs Auto 0.01 0.00 - 0.03 X10*3/uL [facility] Lymphocytes Absolute Auto 1.3 1.2 - 4.9 X10*3/uL [facility] Monocytes Absolute Auto 0.2 0.1 - 1.2 X10*3/uL [facility] Eosinophils Absolute Auto 0.1 0.0 - 0.4 X10*3/uL [facility] Basophils Absolute Auto 0.0 0.0 - 0.2 X10*3/uL [facility] NRBC Abs Auto 0.000 0.0 - 0.012 X10*3/uL [facility] Blood Venous blood specimen / Unknown 12/15/2023 11:00 AM EDT 12/15/2023 1:24 PM EDT Neyda Chacko MD LAB BLOOD ORDERABLES Edited Resu lt - Final Performing Organization Address [facility] Co de Phone Number [facility] [address] [place] [phone] * TSH with Reflex to Free T4 (12/15/2023 11:00 AM EDT) TSH reflex Free T4 2.91 0.32 - 4.0 uIU/mL [facility] Blood 12/15/2023 11:0 0 AM EDT 12/15/2023 1:24 PM EDT Neyda Chacko MD LAB BLOOD ORDERABLES Final Resul t Performing Organization Address [facility] de Phone Number [facility] [address] [place] [phone] * (ABNORMAL) Comprehensive Metabolic Panel (12/15/2023 11:00 AM EDT) Sodium 142 135 - 145 mmol/L [facility] Potassium 4.0 3.3 - 5.1 mmol/L [facility] Chloride 107 96 - 108 mmol/L [facility] Carbon Dioxide 30(H) 22 - 29 mmol/L [facility] Anion Gap 9(L) 12 - 20 [facility] Urea Nitrogen (BUN) 18(H) 9 - 16 mg/dL [facility] Creatinine, Serum 0.68 0.5 - 1.4 mg/dL [facility] Estimated Glomerular Filt Rate >60 [facility] Comment:NOTE: For -Am erican individuals, multiply the result by 1.210.Chronic Kidney Disease: Estimated GFR < 60 mL/min/1.11k7Pekayc Kidney Disease: Estimated GFR < 15 mL/min/1.73m2 Glucose 161(H) 60 - 115 mg/dL [facility] Calcium 9.5 8.4 - 10.2 mg/dL [facility] Bilirubin, Total 0.2 0.0 - 1.0 mg/dL [facility] Aspartate Amino Transferase 34(H) 5 - 31 U/L [facility] Alanine Aminotransferase 49(H) 0 - 31 U/L [facility] Total Protein 6.9 6.5 - 8.0 g/dL [facility] Albumin Level 3.9 3.5 - 5.0 g/dL [facility] Alkaline Phosphatase 59 39 - 117 U/L [facility] Blood Venous blood specimen / Unknown 12/15/2023 11:00 AM EDT 12/15/2023 1:24 PM EDT us Neyda Chacko MD LAB BLOOD ORDERABLES Final Resul t [facility] [address] [place] [phone] * Albumin, Random Urine W/Creatinine (12/15/2023 11:00 AM EDT) Creatinine, Urine 75.29 mg/dL [facility] Microalbumin Urine 21.0 mg/L [facility] Microalbum Creatinine Ratio Ur 27.8 <30 ug/mg cr [facility] Comment:Albumin/Creatinine R atio Reference Ranges: Normal: < 30 ug/mg creatinine Microalbuminuria: 30 - 300 ug/mg creatinineClinical Albuminuria: > 300 ug/mg creatinine Urine 12/15/2023 11:0 0 AM EDT 12/15/2023 1:12 PM EDT Neyda Chacko MD LAB URINE ORDERABLES Final Resul t Performing Organization Address [facility] Co de Phone Number [facility] [address] [place] [phone] * Lipid Panel with Reflex to Direct LDL (12/15/2023 11:00 AM EDT) Triglycerides 45 <150 mg/dL [facility] Comment:Desirable Triglyceri de: less than 150 mg/dLBorderline High Triglyceride 150-199 mg/dLHigh Triglyceride: 200-499 mg/dLVery High Triglyceride: greater than or equal to 5OO mg/dL Cholesterol 113 <200 mg/dL [facility] Comment:Desirable Cholestero l: less than 200 mg/dLBorderline High Cholesterol: 200-239 mg/dLHigh Cholesterol: greater than 239 mg/dL LDL Cholesterol Calculated 51 <100 mg/dL [facility] Comment:Desirable LDL: less than 100 mg/dLNear Optimal/Above Optimal LDL: 110- 129 mg/dLBorderline High LDL: 130-159 mg/dLHigh LDL: 160-189 mg/dLVery High LDL: greater than or equal to 190 mg/dL HDL Cholesterol 53 >40 mg/dL [facility] Comment:Desirable HDL: great er than 40 mg/dL Note: This HDL assay may give artificially low results in patients with liver disease. Blood 12/15/2023 11:0 0 AM EDT 12/15/2023 1:24 PM EDT Neyda Chacko MD LAB BLOOD ORDERABLES Final Resul t Performing Organization Address [facility]/ZIP Co de Phone Number [facility] [address] [place] [phone] * Vitamin B12 (Cobalamin) and Folate Panel, Serum (12/15/2023 11:00 AM EDT) Vitamin B12 402 200 - 900 pg/mL [facility] Comment:NORMAL 200-900 PG/ML INDETERMINATE 160-199 PG/ML DEFICIENT < 160 PG/ML Folate 12.9 > or = 4.0 ng/mL [facility] Comment:Reference Values:> o r = 4.0 ng/mL< 4.0 ng/mL suggests folate deficiency Methotrexate, aminopterin and folinic acid(leucovorin) are chemotherapeutic agents whose molecularstructures are similar to folate; therefore, the Architectfolate assay cannot be used for patients using these drugs. Blood 12/15/2023 11:0 0 AM EDT 12/15/2023 1:24 PM EDT us Neyda Chacko MD LAB BLOOD ORDERABLES Final Resul t [facility] [address] [place] [phone] documented in this encounter Visit Diagnoses Diagnosis Essential hypertension- Primary Unspecified essential hypertension Type 2 diabetes mellitus with hyperglycemia, with long-term current use of insulin ([facility]) Dyslipidemia Other and unspecified hyperlipidemia Weight loss Loss of weight documented in this encounter Additional Health Concerns Assessment Noted Time PHQ-9 Depression Total Score: 7 06/15/19 24 10:57 AM EDT documented as of this encounter Care Teams Baggage Agent Relationship Specialty Start Date End Date Neyda Chacko MD [address] [place] [phone] PCP - General Family Medicine 02/22/18 documented as of this encounter
--- OUTSIDE RECORDS SUMMARY | 2024-06-07 14:58 | XMS_ITS | Encounter Summary ---
Author Organization [email or web address] [facility] Address [address] [facility] 7t [place] [address] Care Team Providers Care Debt Counselor Name Role Phone Neyda Chacko MD Primary Care Provider [phone] Reason for Referral * Consultation (Routine) - Authorized Specialty Diagnoses / Procedures Referred By Rob hagan Referred To Contact Orthopaedic Surgery Diagnoses Chronic right shoulder pain Neyda Chacko MD [address] [place] [address] Phone: tel: fax: [facility] Orthopedics [address] [place] [address] Phone: tel: Referral ID Status Reason Start Date Expiration Date Visits Requested Visits Authorized [id number] Authorized Specialty Services Required 05/20/2024 05/20/2025 1 1 * Consultation (Routine) - Closed Specialty Diagnoses / Procedures Referred By Rob t Referred To Contact Physical Therapy Diagnoses Chronic right shoulder pain Neyda Chacko MD [address] [place] [address] Phone: tel: fax: [facility] Physical Therapy [address] [place] [address] Phone: tel: fax: Referral ID Status Reason Start Date Expiration Date V isits Requested Visits Authorized [id number] Closed Specialty Services Required 05/20/2024 05/20/2025 1 1 Encounter Details Date Type Department Care Team (Late st Contact Info) Description 05/20/2024 Orders Only [facility] [address] [facility] [place] [address] Neyda Chacko MD [address] [facility] [address] Chronic right shoulder pain (Primary Dx) Social [...] Description 07/11/2024 1:15 PM EDT Office Visit [facility] [address] [place] [phone] Neyda Chacko MD [address] [place] [address] Scheduled Orders Name Type Priority Associated Diagnoses [...] documented as of this encounter Care Teams Debt Counselor Relationship Specialty Start Date End Date Neyda Chacko MD [address] [place] [phone] PCP - General Family Medicine 02/22/18 documented as of this encounter
--- OUTSIDE RECORDS SUMMARY | 2024-06-07 14:58 | XMS_ITS | Encounter Summary ---
Author Organization [employer] Address [address] 7t [place] [address] Care Team Providers Care Writer Producer Name Role Phone Neyda Chacko MD Primary Care Provider [phone] Encounter Details Date Type Department Care Team (Late st Contact Info) Description 07/14/2023 Orders Only [facility] [address] [place], [place] [phone] Neyda Chacko MD [address] [place], [place] [phone] Social History Tobacco Use Types Packs/Day Years [...] Description 07/11/2024 1:15 PM EDT Office Visit [facility] [address] [place] [phone] Neyda Chacko MD [address] [place] [address] documented as of this encounter Visit Diagnoses Not on filedocumented in this encounter Additional Health Concerns Assessment Noted Time PHQ-9 Depression Total Score: 7 06/15/19 24 10:57 AM EDT documented as of this encounter Care Teams Writer Producer Relationship Specialty Start Date End Date Neyda Chacko MD [address] [place] [phone] PCP - General Family Medicine 02/22/18 documented as of this encounter
--- OUTSIDE RECORDS SUMMARY | 2024-06-07 14:58 | XMS_ITS | Encounter Summary ---
Author Organization [employer] Address [address] [facility] 7t [place] [address] Care Team Providers Care Licensed Electrician Name Role Phone Neyda Chacko MD Primary Care Provider [phone] Encounter Details Date Type Department Care Team (Late st Contact Info) Description 11/02/2023 Orders Only [facility] [address] [place], [place] [phone] Neyda Chacko MD [address] [place], [place] [phone] Type 2 diabetes mellitus with hyperglycemia, with long-term current use of insulin ([facility]) Social History Tobacco Use Types [...] Description 07/11/2024 1:15 PM EDT Office Visit [facility] [address] [place] [phone] Neyda Chacko MD [address] [place] [phone] documented as of this encounter Visit Diagnoses Diagnosis Type 2 diabetes mellitus with hyperglycemia, with long-term current use of insulin ([facility]) documented in this encounter Additional Health Concerns Assessment Noted Time PHQ-9 Depression Total Score: 7 06/15/19 24 10:57 AM EDT documented as of this encounter Care Teams Licensed Electrician Relationship Specialty Start Date End Date Neyda Chacko MD [address] [place] [phone] PCP - General Family Medicine 02/22/18 documented as of this encounter
== END 2024-06-07 13:20 | disposition home or self-care (01) ==
LOC: HO.HGI 12:39
PROVIDERS: PCP Family Medicine; Visit Provider Nurse Practitioner
DX: K31.84 Gastroparesis (principal); K21.9 Gastro-esophageal reflux disease without esophagitis; K58.2 Mixed irritable bowel syndrome; N81.4 Uterovaginal prolapse, unspecified
CPT/HCPCS: 99213

== ENCOUNTER → 2024-06-07 12:39 | Outpatient (BNVA) | payer OTHER, SELFPAY | PROVIDERS: PCP Family Medicine; Visit Provider Nurse Practitioner | DX: K31.84 Gastroparesis (principal); K21.9 Gastro-esophageal reflux disease without esophagitis; K58.2 Mixed irritable bowel syndrome; N81.4 Uterovaginal prolapse, unspecified | CPT/HCPCS: 99212 ==

== ENCOUNTER 2024-06-26 10:54 | Outpatient (AMB) | payer OTHER, SELFPAY ==
--- NOTE | 2024-06-26 10:58 | A.OFFVIS_ITS ---
Vital Signs 06/26/24 11:07 Height 5 ft 2 in Weight 153 lb 4 oz BMI 28.0 BP 111/62 Blood Pressure Location Lt brachial Position Sitting Pulse 80 Intake Visit Reasons: BX WOUND CHECK Intake Note: Patient is seen in office for follow up visit, wound check post biopsy of the right axilla. Pt c/o: per pt the area is healed, denies pain, unable to lift arm up due to pain, is doing physical therapy for the arm Accompanied by: Family/Other Allergies pioglitazone [From Actos] Allergy (Mild, Verified 06/26/24 11:05) EDEMA, unknown Medication List - Last Reconciled 06/26/24 by Walter Moon MD aspirin 81 mg PO QPM baclofen 10 mg PO TID blood sugar diagnostic (FreeStyle Lite Strips) As directed blood-glucose meter (FreeStyle Lite Meter kit) As directed buspirone 30 mg PO QAM AND QHS cholecalciferol (vitamin D3) 50 mcg PO QAM cilostazol 50 mg PO BID empagliflozin (Jardiance) 25 mg PO QAM 30 days ferrous sulfate (Iron (ferrous sulfate)) 325 mg PO QAM furosemide (Lasix) 10 mg PO QAM glucagon 3 mg/actuation (Baqsimi) 3 mg intranasal ONCE insulin degludec (Tresiba FlexTouch U-200 insulin) 70 units (0.35 mL) subcut DAILY insulin lispro Inject 8-12 units prior to meals subcutaneously use as directed; insulin syringe-needle U-100 (BD Veo Insulin Syringe Ultra-Fine) 1 mL miscellaneous .3 times a day 90 days lancets (FreeStyle Lancets) 3 times a day lisinopril-hydrochlorothiazide 20-12.5 mg 2 tabs PO DAILY lorazepam 1-2 tabs. Max 2 tabs PO 2 times a day PRN; metformin ER 1,000 mg (2 x 500 mg) PO BID metoclopramide HCl 10 mg PO QIDACHS metoprolol tartrate 50 mg PO BID pantoprazole 40 mg PO BID pen needle, diabetic (BD Irais 2nd Gen Pen Needle) 5 times a day rosuvastatin 40 mg PO BEDTIME 90 days semaglutide (Ozempic) 2 mg (0.75 mL) subcut QWEEK sennosides (senna) 17.2 mg (2 x 8.6 mg) PO BEDTIME PRN sucralfate (Carafate) 20 mL PO DAILY tramadol 50 mg PO DAILY PRN venlafaxine ER 150 mg PO QAM zolpidem 10 mg PO BEDTIME PRN HPI Comments Details: 64-year-old female patient returning for follow-up examination after developing pain and redness at the biopsy site in the right axilla. She was noted to have a palpable mass in the right axilla which was confirmed on diagnostic mammogram and ultrasound on 03/15/2024. She subsequently underwent ultrasound-guided core biopsy on 04/12/2024 at the [facility] [place] [facility]. Pathology revealed fragments of benign squamous epithelium and keratinized material, consistent with an epidermal inclusion cyst. No malignancy was identified. We had previously talked about excision of this lesion however she wished to avoid surgery at this time. Following the procedure she did fall and now has pain in the right shoulder. She has a physical therapy in his awaiting an appointment with Orthopedics. She reports that the axillary wound is now well healed with no further pain, redness or discharge. 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 Obesity with body mass index of 30.0-39.9 Hypoglycemia associated with type 2 diabetes mellitus Diabetes type 2, uncontrolled Heart murmur COVID-19 vaccine administered Diabetic neuropathy associated with type 2 diabetes mellitus Background diabetic retinopathy associated with type 2 diabetes mellitus PATRICIA (obstructive sleep apnea) Hemorrhoids Asthma Type 2 diabetes mellitus with mild nonproliferative diabetic retinopathy without macular edema, bilateral Type 2 diabetes mellitus with hyperglycemia, with long-term current use of insulin Essential hypertension Dyslipidemia Menometrorrhagia Polypharmacy Depression Allergic rhinitis Venous insufficiency Anemia Obesity Constipation HTN (hypertension) Surgical History History of esophagogastroduodenoscopy (EGD) Hx of colonoscopy History of bilateral tubal ligation Family History Father No problems noted. Mother Heart disease HTN (hypertension) Diabetes Pacemaker Depression Family/Other Diabetes Daughter Cancer Social History Household Members: None Are you a primary care information associate to a significant other at home: No Do you presently have visiting nurse or other home services: No Alcohol intake: never Patient Tobacco Use Status: Never used Tobacco Sexual orientation: Straight/Heterosexual Gender identity: Female Female Reproductive History Menstrual Age of Menarche: 10 Review of Systems Const All systems reviewed & are unremarkable except as noted in HPI and below Physical Exam Const General: cooperative and no acute distress Nutritional Appearance: well nourished Orientation/consciousness: patient oriented x3 Limitations: no limitations HEENT Head: Yes normocephalic and Yes atraumatic Ears: hearing grossly normal bilaterally Chest Other: Biopsy site in the right axilla is now clean, dry, and intact. There is a slight thickening in the skin however no definite cyst is palpable at this time. There was no evidence of infection. Resp Effort & Inspection: normal respiratory effort, no audible wheezes, no cough and no respiratory distress Cardio Jugular venous distension: no JVD GI Inspection: Yes normal to inspection Skin Other: Warm, dry, no rash Neuro General: patient oriented x3 Extrem Other: Unable to raise right shoulder or arm above her head due to pain General: Yes no clubbing, cyanosis or edema Assessment & Plan Assessment & Plan (1) Infected sebaceous cyst: Code(s): L72.3 - Sebaceous cyst; L08.9 - Local infection of the skin and subcutaneous tissue, unspecified Category: Medical Plan 64-year-old female patient found to have a sebaceous cyst of the right axilla status post ultrasound-guided core biopsy which confirmed sebaceous material. The wounds are now healed with no further redness or discharge. She has recovering from a fall which resulted in a right shoulder injury for which she is undergoing physical therapy and will be due to see a orthopedic clinic soon. She should follow up as needed. Coding Level of Care Code Est Pt Level 3 (84528) Diagnoses Infected sebaceous cyst L72.3; L08.9
[2024-06-26 11:07] VITALS: BP 111/62; PULSE 80; BMI 28.0
--- OUTSIDE RECORDS SUMMARY | 2024-06-26 12:31 | XMS_ITS | Encounter Summary ---
Author Organization [employer] [facility] Address [address] [facility] 7t [place] [address] Care Team Providers Care Human Resources Trainer Name Role Phone Neyda Chacko MD Primary Care Provider [phone] Encounter Details Date Type Department Care Team (Latest Contact Info) Description 01/03/2019 Abstract [facility] CONVERSIONS Dental, Provider, DDS Social History [...] 07/11/2024 1:15 PM EDT Office Visit [facility] MEDICINE [address] [place] [address] Neyda Chacko MD [address] [place] [address] documented as of this encounter Visit Diagnoses Not on filedocumented in this encounter Care Teams Human Resources Trainer Relationship Specialty Start Date End Date Neyda Chacko MD [address] [place] [address] PCP - General Family Medicine 02/22/18 documented as of this encounter
--- OUTSIDE RECORDS SUMMARY | 2024-06-26 12:31 | XMS_ITS | Encounter Summary ---
Author Organization [employer] Address [address] [facility] 7t [place] [address] Care Team Providers Care Word Processor Operator Name Role Phone Neyda Chacko MD Primary Care Provider [phone] Encounter Details Date Type Department Care Team (Late st Contact Info) Description 03/12/2022 Abstract [facility] MEDICINE [address] [place] [address] [phone] Neyda Chacko MD [address] [place], [place] [phone] Social History Tobacco Use Types Packs/Day Years [...] Upcoming Encounters Date Type Department Care Team ([facility] Contact Info) Description 07/11/2024 1:15 PM EDT Office Visit [facility] MEDICINE [address] [place] [address] Neyda Chacko MD [address] [place] [address] documented as of this encounter Visit Diagnoses Not on filedocumented in this encounter Additional Health Concerns Assessment Noted Time PHQ-9 Depression Total Score: 5 03/12/19 23 10:44 AM EST documented as of this encounter Care Teams Word Processor Operator Relationship Specialty Start Date End Date Neyda Chacko MD [address] [place] [address] PCP - General Family Medicine 02/22/18 documented as of this encounter
--- OUTSIDE RECORDS SUMMARY | 2024-06-26 12:31 | XMS_ITS | Encounter Summary ---
Author Organization [employer] [facility] Address [address] [facility] 7t [place] [address] Care Team Providers Care School Childcare Attendant Name Role Phone Neyda Chacko MD Primary Care Provider [phone] Encounter Details Date Type Department Care Team ([facility] Contact Info) Description 03/10/2022 Telephone [facility] MEDICINE [address] [place] [address] [phone] Neyda Chacko MD [address] [place] [address] [phone] Social History Tobacco Use Types Packs/Day Years [...] Upcoming Encounters Date Type Department Care Team ([facility] Contact Info) Description 07/11/2024 1:15 PM EDT Office Visit [facility] [address] [place] [address] [phone] Neyda Chacko MD [address] [place] [address] documented as of this encounter Visit Diagnoses Not on filedocumented in this encounter Care Teams School Childcare Attendant Relationship Specialty Start Date End Date Neyda Chacko MD [address] [place] [address] PCP - General Family Medicine 02/22/18 documented as of this encounter
--- OUTSIDE RECORDS SUMMARY | 2024-06-26 12:31 | XMS_ITS | Encounter Summary ---
Author Organization [email or web address] Address [address] [facility] 7t [place] [address] Care Team Providers Care Glass Loading Equipment Tender Name Role Phone Neyda Chacko MD Primary Care Provider Reason for Visit * Reason Onset Date Comments Med Refill 10/27/2023 Encounter Details Date Type Department Care Team (Late st Contact Info) Description 10/27/2023 Telephone [facility] MEDICINE [address] [place], [place] [phone] Neyda Chacko MD [address] [place], [place] [phone] Med Refill Social History Tobacco Use Types [...] MG/3ML solution pen-injector To be sent to: [facility] - [place], [place] - [address] [facility] documented in this encounter Plan of Treatment Upcoming Encounters Date Type Department Care Team (Late st Contact Info) Description 07/11/2024 1:15 PM EDT Office Visit [facility] MEDICINE [address] [place] [address] Neyda Chacko MD [address] [facility] [place] [address] documented as of this encounter Visit Diagnoses Not on filedocumented in this encounter Additional Health Concerns Assessment Noted Time PHQ-9 Depression Total Score: 7 06/15/19 24 10:57 AM EDT documented as of this encounter Care Teams Glass Loading Equipment Tender Relationship Specialty Start Date End Date Neyda Chacko MD [address] [place] [address] PCP - General Family Medicine 02/22/18 documented as of this encounter
--- OUTSIDE RECORDS SUMMARY | 2024-06-26 12:31 | XMS_ITS | Encounter Summary ---
Author Organization [employer] Address 75 [facility] 7t [place] [address] Care Team Providers Care Applications Administrator Name Role Phone Neyda Chacko MD Primary Care Provider [phone] Encounter Details Date Type Department Care Team (Late st Contact Info) Description 01/26/2023 Orders Only [facility] MEDICINE [address] [place], [place] [phone] Neyda Chacko MD 230 [place], [place] [phone] Social History Tobacco Use Types Packs/Day Years [...] Description 07/11/2024 1:15 PM EDT Office Visit [facility] MEDICINE [address] [place] [address] Neyda Chacko MD 230 [place] [address] documented as of this encounter Visit Diagnoses Not on filedocumented in this encounter Additional Health Concerns Assessment Noted Time PHQ-9 Depression Total Score: 5 03/12/19 23 10:44 AM EST documented as of this encounter Care Teams Applications Administrator Relationship Specialty Start Date End Date Neyda Chacko MD [address] [place] [address] PCP - General Family Medicine 02/22/18 documented as of this encounter
--- OUTSIDE RECORDS SUMMARY | 2024-06-26 12:31 | XMS_ITS | Encounter Summary ---
Author Organization [employer] [facility] Address [address] [facility] 7t [place] [address] Care Team Providers Care Log Feeder Name Role Phone Neyda Chacko MD Primary Care Provider [phone] Encounter Details Date Type Department Care Team (Latest Contact Info) Description 05/21/2020 Abstract [facility] CONVERSIONS Dental, Provider, DDS Social History [...] Description 07/11/2024 1:15 PM EDT Office Visit [facility] MEDICINE [address] [place] [address] Neyda Chacko MD 230 [place] [address] documented as of this encounter Visit Diagnoses Not on filedocumented in this encounter Care Teams Log Feeder Relationship Specialty Start Date End Date Neyda Chacko MD [address] [place] [phone] PCP - General Family Medicine 02/22/18 documented as of this encounter
--- OUTSIDE RECORDS SUMMARY | 2024-06-26 12:31 | XMS_ITS | Clinical Summary ---
Author Organization [facility] Address [address] [place] [address] Phone Care Team Providers Care Landscape Designer Name Role Phone Physician, Pcp Unknown Primary Care Provider Heena vailable Allergies No known active allergies Encounters Date Type Department Care Team Description 04/04/2024 10:00 AM EST Office Visit Orthopedic Surgery [facility] [address] [phone] Alan Crisostomo, DPTisha Metatarsalgia of [...] Blood Test 04/04/2024 Depression Screening 06/14/2024 06/15/2023 COVID-19 Vaccine ( season) 2024 12/21/2023, 01/06/2022, 07/08/2021, Additional history exists Diabetes: Blood Sugar Control Test (HGBA1C) 09/27/2024 03/30/2024 DTaP,Tdap,and Td Vaccines (5 - Td or Tdap) 08/08/2031 08/07/2021, 04/07/2011, 08/20/2005, Additional history exists Hepatitis B Vaccines Completed 10/02/2013, 07/03/2013, 07/19/2012 Zoster Vaccines Completed 10/04/2020, 08/01/2020 Pneumococcal Vaccine: 50+ Years Completed 10/07/2022, 08/20/2005, 11/07/1999 Influenza Vaccine Completed 12/21/2023, , 01/13/2021, Additional [...] patient's age to complete this topic Insurance [facility] OPT[employer] Member Subscriber Plan / Payer (Ef fective 2024-Present) Name:Guzman, Jaimee Ponce Relation to Subscriber:Self Name:Jaimee Guzman Rosario Payer ID:[id number] Group ID:Not on file Type:Not on file Address: [address] [address] Care Teams Landscape Designer Relationship Specialty Start Date End Date Physician, Pcp Unknown PCP - General 03/20/24
--- OUTSIDE RECORDS SUMMARY | 2024-06-26 12:31 | XMS_ITS | Encounter Summary ---
Author Organization [employer] Address [address] [facility] [address] 7t [place] [address] Care Team Providers Care Jira Administrator Name Role Phone Neyda Chacko MD Primary Care Provider [phone] Encounter Details Date Type Department Care Team (Latest Contact Info) Description 06/21/2024 Travel Social History Tobacco Use Types Packs/Day [...] Description 07/11/2024 1:15 PM EDT Office Visit [facility] MEDICINE 230 [place] [address] Neyda Chacko MD [address] [place] [address] documented as of this encounter Visit Diagnoses Not on filedocumented in this encounter Additional Health Concerns Assessment Noted Time PHQ-9 Depression Total Score: 7 06/15/19 24 10:57 AM EDT documented as of this encounter Care Teams Jira Administrator Relationship Specialty Start Date End Date Neyda Chacko MD [address] [place] [address] PCP - General Family Medicine 02/22/18 documented as of this encounter
--- OUTSIDE RECORDS SUMMARY | 2024-06-26 12:31 | XMS_ITS | Encounter Summary ---
Author Organization [employer] [facility] Address [address] [facility] 7t [place] [address] Care Team Providers Care Extrusion Press Adjuster Name Role Phone Neyda Chacko MD Primary Care Provider [phone] Reason for Referral * Consultation (Routine) - Authorized Specialty Diagnoses / Procedures Referred By Rob hagan Referred To Contact Orthopaedic Surgery Diagnoses Chronic right shoulder pain Neyda Chacko MD [address] [place] [address] Phone: tel: fax: [facility] [address] [place] [address] Phone: tel: Referral ID Status Reason Start Date Expiration Date Visits Requested Visits Authorized [id number] Authorized Specialty Services Required 05/20/2024 05/20/2025 1 1 * Consultation (Routine) - Closed Specialty Diagnoses / Procedures Referred By Rob t Referred To Contact Physical Therapy Diagnoses Chronic right shoulder pain Neyda Chacko MD [address] [place] [address] Phone: tel: fax: [facility] [address] [place] [address] Phone: tel: fax: Referral ID Status Reason Start Date Expiration Date V isits Requested Visits Authorized [id number] Closed Specialty Services Required 05/20/2024 05/20/2025 1 1 Encounter Details Date Type Department Care Team (Late st Contact Info) Description 05/20/2024 Orders Only [facility] [address] [facility] [place] [address] Neyda Chacko MD [facility] [place] [address] Chronic right shoulder pain (Primary Dx) Social [...] Description 07/11/2024 1:15 PM EDT Office Visit [facility] MEDICINE [address] [place] [address] Neyda Chacko MD [address] [place] [address] Scheduled Orders Name Type Priority Associated Diagnoses [...] Start Date End Date Neyda Chacko MD [address] [place] [address] PCP - General Family Medicine 02/22/18 documented as of this encounter
--- OUTSIDE RECORDS SUMMARY | 2024-06-26 12:31 | XMS_ITS | Encounter Summary ---
Author Organization [employer] Address [address] [place] [facility] [address] 7t [place] [address] Care Team Providers Care Lozenge Dough Mixer Name Role Phone Neyda Chacko MD Primary Care Provider [phone] Encounter Details Date Type Department Care Team ([facility] st Contact Info) Description 06/21/2024 Orders Only [facility] P[facility]S [address] [place], [place] [phone] Kat aCmarena MD [address] [place], [place] [phone] Social History Tobacco Use Types Packs/Day Years [...] Description 07/11/2024 1:15 PM EDT Office Visit [facility] MEDICINE 230 [place] [address] Neyda Chacko MD 230 [place] [address] documented as of this encounter Visit Diagnoses Not on filedocumented in this encounter Additional Health Concerns Assessment Noted Time PHQ-9 Depression Total Score: 7 06/15/19 24 10:57 AM EDT documented as of this encounter Care Teams Lozenge Dough Mixer Relationship Specialty Start Date End Date Neyda Chacko MD 230 [place] [address] PCP - General Family Medicine 02/22/18 documented as of this encounter
--- OUTSIDE RECORDS SUMMARY | 2024-06-26 12:31 | XMS_ITS | Encounter Summary ---
Author Organization [employer] [facility] Address 75 [facility] 7t [place] [address] Care Team Providers Care Sweeper Cleaner Industrial Name Role Phone Neyda Chacko MD Primary Care Provider [phone] Encounter Details Date Type Department Care Team (Late st Contact Info) Description 03/06/2022 Orders Only [facility] MEDICINE [address] [place] [address] [phone] Misa Tillman LPN Social History Tobacco Use [...] Description 07/11/2024 1:15 PM EDT Office Visit [facility] MEDICINE [address] [place] [address] Neyda Chacko MD [address] [place] [address] documented as of this encounter Visit Diagnoses Not on filedocumented in this encounter Care Teams Sweeper Cleaner Industrial Relationship Specialty Start Date End Date Neyda Chacko MD [address] [place] [address] [phone] PCP - General Family Medicine 02/22/18 documented as of this encounter
--- OUTSIDE RECORDS SUMMARY | 2024-06-26 12:31 | XMS_ITS | Encounter Summary ---
Author Organization [employer] Address [address] [facility] 7t [place] [address] Care Team Providers Care Aperture Mask Etcher Name Role Phone Neyda Chacko MD Primary Care Provider [phone] Encounter Details Date Type Department Care Team (Late st Contact Info) Description 09/09/2023 Orders Only [facility] MEDICINE [address] [place], [place] [phone] Neyda Chacko MD [address] [place], [place] [phone] Essential hypertension (Primary Dx); Type 2 diabetes mellitus with hyperglycemia, with long-term current use of insulin ([facility]); Dyslipidemia; Weight loss Social History [...] 1:15 PM EDT Office Visit [facility] MED[facility]INE [address] [place] [address] Neyda Chacko MD [address] [place] [address] documented as of this encounter Procedures Procedure Name Priority Date/Time Associated Diagnosis Comments VITAMIN B12/FOLATE, SERUM PANEL Routine 12/15/2023 11:00 AM EDT Type 2 diabetes mellitus with hyperglycemia, with long-term current use of insulin ([facility]) TSH W/REFLEX TO FT4 Routine 12/15/2023 1 1:00 AM EDT Weight loss LIPID PANEL WITH REFLEX TO DIRECT LDL Routine 12/15/2023 11:00 AM EDT Type 2 diabetes mellitus with hyperglycemia, with long-term current use of insulin ([facility]) Dyslipidemia ALBUMIN, RANDOM URINE W/CREATININE [...] Blood Count 2.5(L) 4.8 - 10.8 X10*3/uL [facility] Red Blood Count 4.42 4.20 - 5.50 X10*6/uL [facility] Hemoglobin 12.7 12.0 - 16.0 g/dl [facility] Hematocrit 38.9 37.0 - 47.0 % [facility] Mean Corpuscular Volume 88.0 80.0 - 98.0 fL [facility] Mean Corpuscular Hemoglobin 28.7 27.0 - 33.0 pg [facility] Mean Corpuscular HGB Conc 32.6 31.0 - 35.0 g/dl [facility] Red Cell Distribution Width 12.0 11.0 - 16.0 % [facility] Platelet Count 180 160 - 400 X10*3/uL [facility] Mean Platelet Volume 9.8 9.4 - 12.3 fL [facility] Neutrophils Percent Auto 36.6(L) 45 - 73 % [facility] Imm Gran Pct Auto 0.4 0.0 - 0.4 % [facility] Lymphocytes Percent Auto 49.8(H) 20 - 40 % [facility] Monocytes Percent Auto 8.8 2 - 11 % [facility] Eosinophils Percent Auto 3.6 0 - 4 % [facility] Basophils Percent Auto 0.8 0 - 2 % [facility] NRBC Pct Auto 0.0 0.0 - 0.2 /100WBC [facility] Neutrophils Absolute Auto 0.9(L) 2.0 - 8.3 x10*3/uL [facility] Imm Gran Abs Auto 0.01 0.00 - 0.03 X10*3/uL [facility] Lymphocytes Absolute Auto 1.3 1.2 - 4.9 X10*3/uL [facility] Monocytes Absolute Auto 0.2 0.1 - 1.2 X10*3/uL [facility] [...] Resu lt - Final Performing Organization Address [facility] Co de Phone Number [facility] [address] [place] [phone] * TSH with Reflex to Free T4 (12/15/2023 11:00 AM EDT) TSH reflex Free T4 2.91 0.32 - 4.0 uIU/mL [facility] Blood 12/15/2023 11:0 0 AM EDT 12/15/2023 1:24 PM EDT Neyda Chacko MD LAB BLOOD ORDERABLES Final Resul t Performing Organization Address [facility] de Phone Number [facility] [address] [place] [phone] * (ABNORMAL) Comprehensive Metabolic Panel (12/15/2023 [...] 1.210.Chronic Kidney Disease: Estimated GFR < 60 mL/min/[id number] Kidney Disease: Estimated GFR < 15 mL/min/1.73m2 [...] Final Resul t [facility] [address] [place] [phone] * Albumin, Random Urine W/Creatinine (12/15/2023 11:00 AM EDT) Creatinine, Urine 75.29 mg/dL [facility] Microalbumin Urine 21.0 mg/L [facility] Microalbum Creatinine Ratio Ur 27.8 <30 ug/mg cr [facility] Comment:Albumin/Creatinine R atio Reference Ranges: Normal: < 30 ug/mg creatinine Microalbuminuria: 30 - 300 ug/mg creatinineClinical Albuminuria: > 300 ug/mg creatinine Urine 12/15/2023 11:0 0 AM EDT 12/15/2023 1:12 PM EDT Neyda Chacko MD LAB URINE ORDERABLES Final Resul t Performing Organization Address [facility] Co de Phone Number [facility] [address] [place] [address] [phone] * Lipid Panel with Reflex to Direct LDL (12/15/2023 11:00 AM EDT) Triglycerides 45 <150 mg/dL [facility] Comment:Desirable Triglyceri de: less than [...] 190 mg/dL HDL Cholesterol 53 >40 mg/dL [facility] Comment:Desirable HDL: great er than 40 mg/dL Note: This HDL assay may give artificially low results in patients with liver disease. Blood 12/15/2023 11:0 0 AM EDT 12/15/2023 1:24 PM EDT Neyda Chacko MD LAB BLOOD ORDERABLES Final Resul t Performing Organization Address City/[facility]/ZIP Co de Phone Number [facility] [address] [place] [phone] * Vitamin B12 (Cobalamin) and Folate [...] Final Resul t [facility] [address] [place] [phone] documented in this encounter Visit Diagnoses Diagnosis Essential hypertension- Primary Unspecified essential hypertension Type 2 diabetes mellitus with hyperglycemia, with long-term current use of insulin ([facility]) Dyslipidemia Other and unspecified hyperlipidemia Weight loss Loss of weight documented in this encounter Additional Health Concerns Assessment Noted Time PHQ-9 Depression Total Score: 7 06/15/19 24 10:57 AM EDT documented as of this encounter Care Teams Aperture Mask Etcher Relationship Specialty Start Date End Date Neyda Chacko MD [address] [place] [address] PCP - General Family Medicine 02/22/18 documented as of this encounter
--- OUTSIDE RECORDS SUMMARY | 2024-06-26 12:31 | XMS_ITS | Encounter Summary ---
Author Organization [employer] Address 75 [facility] 7t [place] [address] Care Team Providers Care Logistics Research Engineer Name Role Phone Neyda Chacko MD Primary Care Provider [phone] Encounter Details Date Type Department Care Team (Late st Contact Info) Description 12/16/2023 Orders Only [facility] MEDICINE [address] [place], [place] [phone] Neyda Chacko MD [address] [place], [place] [phone] Leukopenia, unspecified type (Primary Dx) Social History [...] Description 07/11/2024 1:15 PM EDT Office Visit [facility] MEDICINE [address] [place], [place] [phone] Neyda Chacko MD [address] [place] [address] documented as of this encounter Procedures Procedure Name Priority Date/Time Associated Diagnosis Comments PATHOLOGIST REVIEW - CBC Routine 12/17/2023 12:02 PM EDT Leukopenia, unspecified type CBC WITH AUTO DIFFERENTIAL Routine 12/17/2023 12:02 PM EDT Leukopenia, unspecified type documented in this encounter Results * Pathologist Review - CBC (12/17/2023 12:02 PM EDT) Pathologist Review - CBC SEE NOTE [facility] Comment:Peripheral blood joshua ments are normal appearing.- Yash Moreno M.D. Pathology Blood Venous blood specimen / Unknown 12/17/2023 12:02 PM EDT 12/17/2023 1:19 PM EDT us Neyda Chacko MD LAB BLOOD ORDERABLES Final Resul t [facility] [address] [place] [phone] [phone] * (ABNORMAL) CBC auto differential (12/17/2023 12:02 PM EDT) White Blood Count 3.7(L) 4.8 - 10.8 X10*3/uL [facility] Red Blood Count 4.47 4.20 - 5.50 X10*6/uL [facility] Hemoglobin 13.0 12.0 - 16.0 g/dl [facility] Hematocrit 38.4 37.0 - 47.0 % [facility] Mean Corpuscular Volume 85.9 80.0 - 98.0 fL [facility] Mean Corpuscular Hemoglobin 29.1 27.0 - 33.0 pg [facility] Mean Corpuscular HGB Conc 33.9 31.0 - 35.0 g/dl [facility] Red Cell Distribution Width 11.9 11.0 - 16.0 % [facility] Platelet Count 209 160 - 400 X10*3/uL [facility] Mean Platelet Volume 9.7 9.4 - 12.3 fL [facility] Neutrophils Percent Auto 55.4 45 - 73 % [facility] Imm Gran Pct Auto 0.3 0.0 - 0.4 % [facility] Lymphocytes Percent Auto 33.4 20 - 40 % [facility] Monocytes Percent Auto 8.0 2 - 11 % [facility] Eosinophils Percent Auto 2.4 0 - 4 % [facility] Basophils Percent Auto 0.5 0 - 2 % [facility] NRBC Pct Auto 0.0 0.0 - 0.2 /100WBC [facility] Neutrophils Absolute Auto 2.1 2.0 - 8.3 x10*3/uL [facility] Imm Gran Abs Auto 0.01 0.00 - 0.03 X10*3/uL [facility] Lymphocytes Absolute Auto 1.3 1.2 - 4.9 X10*3/uL [facility] Monocytes Absolute Auto 0.3 0.1 - 1.2 X10*3/uL [facility] Eosinophils Absolute Auto 0.1 0.0 - 0.4 X10*3/uL [facility] Basophils Absolute Auto 0.0 0.0 - 0.2 X10*3/uL [facility] NRBC Abs Auto 0.000 0.0 - 0.012 X10*3/uL [facility] Blood Venous blood specimen / Unknown 12/17/2023 12:02 PM EDT 12/17/2023 1:19 PM EDT us Neyda Chacko MD LAB BLOOD ORDERABLES Final Resul t [facility] [address] [place] [phone] documented in this encounter Visit Diagnoses Diagnosis Leukopenia, unspecified type- Primary documented in this encounter Additional Health Concerns Assessment Noted Time PHQ-9 Depression Total Score: 7 06/15/19 24 10:57 AM EDT documented as of this encounter Care Teams Logistics Research Engineer Relationship Specialty Start Date End Date Neyda Chacko MD [address] [place] [address] PCP - General Family Medicine 02/22/18 documented as of this encounter
--- OUTSIDE RECORDS SUMMARY | 2024-06-26 12:31 | XMS_ITS | Encounter Summary ---
Author Organization [employer] Address [address] [facility] 7t [place] [address] Care Team Providers Care Special Makeup Fx Artist Instructor Name Role Phone Neyda Chacko MD Primary Care Provider [phone] Encounter Details Date Type Department Care Team (Late st Contact Info) Description 06/21/2024 3:45 PM EDT Office Visit [facility] [address] [place], [place] [phone] May Bethea, CAM MILLING MACHINE OPERATOR [address] [place], [place] [phone] Chronic right shoulder pain (Primary Dx) Social [...] the past 12 months, has t he [employer] gas, oil or water [employer] threatened to shut off services in your [...] Sign Reading Time Taken Comments Blood Pressure 155/54 06/21/2024 4:08 PM EDT Pulse 69 06/21/2024 4:08 PM EDT Temperature 36.6 ??C (97.9 ??F) 06/21/2024 4:08 PM ED T Respiratory Rate 16 06/21/2024 4:08 PM EDT Oxygen Saturation 98% 06/21/2024 4:08 PM EDT Inhaled Oxygen Concentration - - Weight 68.5 kg (151 lb) 06/21/2024 4:08 PM EDT Height 152.4 cm (5') 06/21/2024 4:08 PM EDT Body Mass Index 29.49 06/21/2024 4:08 PM EDT documented in this encounter Progress Notes * INGRID Cast - 06/21/2024 3:45 PM EDT Jaimee Guzman is a 64 y.o. female who presents for a acute visit in company of two family members. 05/24/2024 Seen in [facility] for right shoulder pain after an unwitnessed fall. Positive for Swelling and tenderness with decreased range of motion - Xray, baclofen 10 mg and topical, tylenol and PT Xray FINDINGS: Four views of the right shoulder are submitted. Osseous mineralization is normal. There is no fracture or dislocation. The glenohumeral and acromioclavicular joint spaces are preserved. The soft tissues are unremarkable. IMPRESSION: Unremarkable examination of the right shoulder. Reports continue pain and swelling in the right shoulder. Reports 6 days of physical therapy which she noticed clicking sound in the shoulder during PT. Did not schedule appointment with orthopedist. Negative fever, chills, or nausea Allergies Allergen Reactions Pioglitazone Other reaction(s): unspecified Current Outpatient Medications: Aspirin Low Dose 81 MG EC tablet, TAKE 1 TABLET BY MOUTH EVERY EVENING, Disp: 90 tablet, Rfl: 3 baclofen (Lioresal) 10 MG tablet, Take one tablet TID PRN, Disp: 30 tablet, Rfl: 0 Baqsimi Two Pack 3 MG/DOSE nasal powder, USE 1 SPRAY (3MG) IN ONE NOSTRIL FOR A PATIENT WITH SEVEREHYPOGLYCEMIA WHO IS NOT RESPONSIVE AND UNABLE SELF-TREAT WITH GLUCOSE. AFTERWARDS TURN ON SIDE. MAYREPEAT IN 15MINUTES IF PATIENT DOES NOT RESPOND., Disp: , Rfl: Blood Glucose Monitoring Suppl (Liqu[employer] [place] Lite) w/Device kit, USE DIRECTED, Disp: , Rfl: Blood Pressure Monitor kit, Use to check blood pressure daily as directed, Disp: 1 kit, Rfl: 0 busPIRone (Buspar) 30 MG tablet, TAKE 1 TABLET BY MOUTH TWICE DAILY IN THE MORNING AND AT BEDTIME, Disp: , Rfl: Carafate 1 GM/10ML suspension, TAKE 20ML BY MOUTH EVERY DAY, Disp: , Rfl: cilostazol (Pletal) 50 MG tablet, TAKE 1 TABLET BY MOUTH TWICE DAILY IN THE MORNING AND IN THE EVENING 30 MINUTOS ANTES O 2 HORAS DESPUES DEL DESAYUNO Y LA SHANTHI, Disp: 60 tablet, Rfl: 5 Continuous Blood Gluc Transfer Driver (FreeStyle Joelle 2 [place]) device, Use as directed, Disp: 1 each, Rfl: 1 Continuous Glucose Sensor (FreeStyle Joelle 2 Sensor) [facility], Use as directed, Disp: 2 each, Rfl: 11 D3 Super Strength 50 MCG (2000 UT) capsule, TAKE 1 CAPSULE BY MOUTH EVERY MORNING, Disp: 90 capsule, Rfl: 3 Diclofenac Sodium 1 % gel, Apply 1 g topically if needed in the morning, at noon, and at bedtime (pain)., Disp: 100 g, Rfl: 1 Easy Touch Lancets 33G/Twist misc, USE UP TO FIVE TIMES DAILY TO TEST BLOOD SUGAR, Disp: 100 each, Rfl: 11 Ferrous Sulfate (iron) 325 (65 Fe) MG tablet, TAKE 1 TABLET BY MOUTH EVERY MORNING, Disp: 180 tablet, Rfl: 3 FREESTYLE LITE test strip, USE TO TEST 5 TIMES DAILY, Disp: 100 each, Rfl: 11 glucose blood (FreeStyle Precision [place] Test) test strip, Use to test blood sugar up to 5 times daily, as directed, Disp: 100 each, Rfl: 11 ibuprofen 600 MG tablet, Take 1 tablet (600 mg) by mouth every 6 (six) hours if needed for mild pain for up to 20 doses., Disp: 20 tablet, Rfl: 0 Insulin Lispro 100 UNIT/ML solution, Inject 12 Units under the skin before breakfast, before lunch,and before evening meal. INJECT 8-12 UNITS SUBCUTANEOUSLY BEFORE MEALS., Disp: 10 mL, Rfl: 11 Insulin Syringe-Needle U-100 (BD Veo Insulin Syringe U/F) 31G X 15/64 0.5 ML misc, USE THREE TO FOUR TIMES DAILY WITH humalog, Disp: 120 each, Rfl: 11 Jardiance 25 MG, TAKE 1 TABLET BY MOUTH EVERY MORNING, Disp: 90 tablet, Rfl: 3 lisinopril-hydroCHLOROthiazide 20-12.5 MG tablet, TAKE 2 TABLETS BY MOUTH ONCE DAILY AT NOON, Disp:180 tablet, Rfl: 3 metFORMIN XR (Glucophage-XR) 500 MG 24 hr tablet, TAKE 2 TABLETS BY MOUTH TWICE DAILY IN THE MORNING AND EVENING, Disp: 360 tablet, Rfl: 3 metoclopramide (Reglan) 10 MG tablet, Take 1 tablet by mouth every 8 (eight) hours., Disp: , Rfl: metoprolol tartrate (Lopressor) 50 MG tablet, TAKE 1 TABLET BY MOUTH TWICE DAILY IN THE MORNING ANDIN THE EVENING WITH MEALS, Disp: 180 tablet, Rfl: 3 Ozempic, 2 MG/DOSE, 8 MG/3ML solution pen-injector, Inject 2 MG SUBCUTANEOUSLY EVERY 7 DAYS IN THE ABDOMEN, THIGHS OR UPPER ARM. ROTATE INJECTION SITES., Disp: 3 mL, Rfl: 1 pantoprazole (ProtoNix) 40 MG EC tablet, TAKE 1 TABLET BY MOUTH TWICE A DAY, Disp: , Rfl: Pentips 32G X 4 MM misc, USE ONCE DAILY, Disp: 100 each, Rfl: 6 rosuvastatin (Crestor) 40 MG tablet, TAKE 1 TABLET BY MOUTH AT BEDTIME, Disp: 90 tablet, Rfl: 3 Senna-Time 8.6 MG tablet, TAKE 2 TABLETS BY MOUTH EVERY DAY AT BEDTIME NEEDED FOR CONSTIPATION, Disp: , Rfl: traMADol (Ultram) 50 MG tablet, Take 1 tablet (50 mg) by mouth if needed each day for severe pain.,Disp: 7 tablet, Rfl: 0 Tresiba FlexTouch 200 UNIT/ML injection, Administer 70 units subcutaneously daily, Disp: 3 mL, Rfl:11 venlafaxine XR (Effexor XR) 150 MG 24 hr capsule, Take 150 mg by mouth in the morning., Disp: , Rfl: zolpidem (Ambien) 10 MG tablet, Take 10 mg by mouth if needed at bedtime., Disp: , Rfl: Review of Systems Constitutional: Negative for chills and fever. Respiratory: Negative for cough, chest tightness, shortness of breath and wheezing. Cardiovascular: Negative for chest pain and palpitations. Gastrointestinal: Negative for nausea and vomiting. Musculoskeletal: Positive for arthralgias and myalgias. Neurological: Negative for dizziness, weakness, light-headedness, numbness and headaches. Psychiatric/Behavioral: Negative for suicidal ideas. Visit Vitals BP (!) 155/54 (BP Location: Left arm, Patient Position: Sitting, BP Cuff Size: Large adult) Pulse 69 Temp 97.9 ??F (36.6 ??C) (Oral) Resp 16 Ht 5' (1.524 m) Wt 151 lb (68.5 kg) SpO2 98% BMI 29.49 kg/m?? Smoking Status Never BSA 1.7 m?? Physical Exam Constitutional: Appearance: Normal appearance. Cardiovascular: Rate and Rhythm: Normal rate. Pulses: Normal pulses. Pulmonary: Effort: Pulmonary effort is normal. Breath sounds: Normal breath sounds. No wheezing. Musculoskeletal: Right shoulder: Swelling and tenderness present. No crepitus. Decreased range of motion. Normal strength. Normal pulse. Left shoulder: No swelling or crepitus. Normal strength. Normal pulse. Neurological: Mental Status: She is alert. Problem List Items Addressed This Visit Chronic right shoulder pain - Primary Positive for tenderness, limited ROM with less than 180 degrees of abduction. Shoulder mildly swollen with mild erythema , negative for warmth, fever, weakness, numbers or tingling Referral letter printed and patient encouraged to schedule appointment to see orthopedist as soon as possible Continue with both topical and oral pain medication Apply ice on and off. Avoiding lifting heavy objects with right hand. 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 I, Gordy Camarena MD , have reviewed the resident's note and agree with the assessment & plan of care as documented above. Visit Conducted in: Burmese Translation by: Provided by [facility] staff member , documented in this encounter Plan of Treatment Upcoming Encounters Date Type Department Care Team (Late st Contact Info) Description 07/11/2024 1:15 PM EDT Office Visit [facility] [address] [place] [address] Neyda Chacko MD [address] [place] [address] documented as of this encounter Visit Diagnoses Diagnosis Chronic right shoulder pain- Primary Pain in joint, shoulder region documented in this encounter Additional Health Concerns Assessment Noted Time PHQ-9 Depression Total Score: 7 06/15/19 24 10:57 AM EDT documented as of this encounter Care Teams Special Makeup Fx Artist Instructor Relationship Specialty Start Date End Date Neyda Chacko MD [address] [place] [address] PCP - General Family Medicine 02/22/18 documented as of this encounter
--- OUTSIDE RECORDS SUMMARY | 2024-06-26 12:31 | XMS_ITS | Encounter Summary ---
Author Organization [employer] [facility] Address [address] [facility] 7t [place] [address] Care Team Providers Care Brake Rider Name Role Phone Neyda Chacko MD Primary Care Provider [phone] Reason for Visit * Reason Onset Date Comments Med Refill 09/03/2022 Encounter Details Date Type Department Care Team (Late st Contact Info) Description 09/03/[address] [facility] [address] [place], [place] [phone] Neyda Chacko MD [address] [place], [place] [phone] Med Refill Social History Tobacco Use Types [...] 07/11/2024 1:15 PM EDT Office Visit [facility] [address] [place] [address] Neyda Chacko MD [address] [place] [address] documented as of this encounter Visit Diagnoses Not on filedocumented in this encounter Additional Health Concerns Assessment Noted Time PHQ-9 Depression Total Score: 5 03/12/19 23 10:44 AM EST documented as of this encounter Care Teams Brake Rider Relationship Specialty Start Date End Date Neyda Chacko MD [address] [place] [phone] PCP - General Family Medicine 02/22/18 documented as of this encounter
--- OUTSIDE RECORDS SUMMARY | 2024-06-26 12:31 | XMS_ITS | Encounter Summary ---
Author Organization [employer] [facility] Address [address] [facility] 7t [place] [address] Care Team Providers Care Furnace Firer Name Role Phone Neyda Chacko MD Primary Care Provider [phone] Reason for Visit * Reason Comments Med Refill Encounter Details Date Type Department Care Team (Late st Contact Info) Description 01/28/2022 Refill [facility] [address] [place] [phone] [facility] [address] [place] [address] Type 2 diabetes mellitus with hyperglycemia (CMS/HCC) [...] PM EDT Office Visit [facility] [address] [place] [phone] Neyda Chacko MD [address] [place] [phone] documented as of this encounter Visit Diagnoses Diagnosis Type 2 diabetes mellitus with hyperglycemia (CMS/HCC) documented in this encounter Care Teams Furnace Firer Relationship Specialty Start Date End Date Neyda Chacko MD [address] [place] [address] PCP - General Family Medicine 02/22/18 documented as of this encounter
--- OUTSIDE RECORDS SUMMARY | 2024-06-26 12:31 | XMS_ITS | Encounter Summary ---
Author Organization [employer] Address [address] [facility] 7t [place] [address] Care Team Providers Care Computer Aided Drafter Name Role Phone Neyda Chacko MD Primary Care Provider [phone] Reason for Visit * Reason Onset Date Comments Appointment Request 02/19/2023 Encounter Details Date Type Department Care Team ([facility] st Contact Info) Description 02/19/2023 Telephone [facility] [address] [place], [place] [phone] Neyda Chacko MD [address] [place], [place] [phone] Appointment Request Social History Tobacco Use Types [...] daughter requesting to reschedule appt for 02/19 DIRECTOR OF RETAIL ANALYTICS CDTM HTN *IP* documented in this encounter Plan of Treatment Upcoming Encounters Date Type Department Care Team (Late st Contact Info) Description 07/11/2024 1:15 PM EDT Office Visit [facility] [address] [place] [address] Neyda Chacko MD [address] [place] [address] documented as of this encounter Visit Diagnoses Not on filedocumented in this encounter Additional Health Concerns Assessment Noted Time PHQ-9 Depression Total Score: 5 03/12/19 23 10:44 AM EST documented as of this encounter Care Teams Computer Aided Drafter Relationship Specialty Start Date End Date Neyda Chacko MD [address] [place] [address] PCP - General Family Medicine 02/22/18 documented as of this encounter
--- OUTSIDE RECORDS SUMMARY | 2024-06-26 12:31 | XMS_ITS | Encounter Summary ---
Author Organization [employer] Address [address] [facility] 7t [place] [address] Care Team Providers Care Harbor Tug Captain Name Role Phone Neyda Chacko MD Primary Care Provider [phone] Encounter Details Date Type Department Care Team (Late st Contact Info) Description 11/02/2023 Orders Only [facility] [address] [place], [place] [phone] Neyda Chacko MD [address] [place], [place] [phone] Type 2 diabetes mellitus with hyperglycemia, with long-term current use of insulin ([facility]) Social History Tobacco Use Types [...] PM EDT Office Visit [facility] [address] [place] [phone] Neyda Chacko MD [address] [place] [phone] documented as of this encounter Visit Diagnoses Diagnosis Type 2 diabetes mellitus with hyperglycemia, with long-term current use of insulin ([facility]) documented in this encounter Additional Health Concerns Assessment Noted Time PHQ-9 Depression Total Score: 7 06/15/19 24 10:57 AM EDT documented as of this encounter Care Teams Harbor Tug Captain Relationship Specialty Start Date End Date Neyda Chacko MD [address] [place] [id number] PCP - General Family Medicine 02/22/18 documented as of this encounter
--- OUTSIDE RECORDS SUMMARY | 2024-06-26 12:31 | XMS_ITS | Encounter Summary ---
Author Organization [employer] Address [address] [facility] 7t [place] [address] Care Team Providers Care Entry Level Financial Analyst Name Role Phone Neyda Chacko MD Primary Care Provider Reason for Visit * Reason Comments Med Refill Encounter Details Date Type Department Care Team (Late st Contact Info) Description 06/24/2024 Refill [facility] [address] [place], [place] [phone] Neyda Chacko MD [address] [place], [place] [phone] Type 2 diabetes mellitus with hyperglycemia, with long-term current use of insulin ([facility]) Social History Tobacco Use Types Packs/Day Years [...] Visit [facility] MED[facility]INE [address] [place] [phone] Neyda Chacko MD [address] [place] [phone] documented as of this encounter Visit Diagnoses Diagnosis Type 2 diabetes mellitus with hyperglycemia, with long-term current use of insulin ([facility]) documented in this encounter Additional Health Concerns Assessment Noted Time PHQ-9 Depression Total Score: 7 06/15/19 24 10:57 AM EDT documented as of this encounter Care Teams Entry Level Financial Analyst Relationship Specialty Start Date End Date Neyda Chacko MD [address] [place] [phone] PCP - General Family Medicine 02/22/18 documented as of this encounter
--- OUTSIDE RECORDS SUMMARY | 2024-06-26 12:31 | XMS_ITS | Clinical Summary ---
Author Organization [employer] Address [address] [place] [address] Care Team Providers Care Delivery Assistant Name Role Phone Neyda Chacko MD Primary Care Provider [phone] Allergies Active Allergy Reactions Criticality Noted Date Comments Pioglitazone 03/14/2010 Other reaction(s): unspecified Medications Blood Glucose Monitoring Suppl (RenovoRx [place] Lite) w/Device kit USE DIRECTED Active busPIRone [...] needed at bedtime. Active Continuous Blood Gluc Carpet Inspector Finished (AppIt VenturesStyle Joelle 2 [place]) device Use as directed 1 each 1 Active pantoprazole (ProtoNix) 40 MG EC tablet [...] 8-12 UNITS SUBCUTANEOUSLY BEFORE MEALS. 10 mL 11 Active Tresiba FlexTouch 200 UNIT/ML injection Administer 70 units subcutaneously daily 3 mL 11 Active glucose blood (FreeStyle Precision Augustus Test) test strip Use to test blood sugar up to 5 times daily, as directed 100 each 11 Active Pentips 32G X 4 MM misc [...] BY MOUTH EVERY MORNING 90 capsule 3 Active metFORMIN XR (Glucophage-XR) 500 MG 24 hr tablet TAKE 2 TABLETS BY MOUTH TWICE DAILY IN THE MORNING AND EVENING 360 tablet 3 Active Jardiance 25 MGIndications:T ype 2 diabetes mellitus with hyperglycemia, with long-term current use of insulin (CMS/HCC) TAKE 1 TABLET BY MOUTH EVERY MORNING 90 tablet 3 024 Active Aspirin Low Dose 81 MG [...] WITH humalog 120 each 11 025 Active cilostazol (Pletal) 50 MG tabletIndicatio ns:Peripheral arterial occlusive disease (CMS/HCC) TAKE 1 TABLET BY MOUTH TWICE DAILY IN THE MORNING AND IN THE EVENING 30 MINUTOS ANTES O 2 HORAS DESPUES DEL DESAYUNO Y LA BB SHOT PACKER 60 tablet 5 025 Active lisinopril-hydr oCHLOROthiazide 20-12.5 MG tablet TAKE 2 TABLETS BY MOUTH ONCE DAILY AT NOON 180 tablet 3 025 Active baclofen (Lioresal) 10 MG tabletIndicatio ns:Acute pain of right shoulder Take one tablet TID PRN 30 tablet 025 Active Ozempic, 2 MG/DOSE, 8 MG/3ML solution pen-injectorInd ications:Type 2 diabetes mellitus with hyperglycemia, with long-term current use of insulin ([facility]) Inject 2 MG SUBCUTANEOUSLY EVERY 7 DAYS IN THE ABDOMEN, THIGHS OR UPPER ARM. ROTATE INJECTION SITES. 3 mL 1 025 Active traMADol (Ultram) 50 MG tabletIndicatio ns:Chronic low back pain, unspecified back pain laterality, unspecified whether sciatica present Take 1 tablet (50 mg) by mouth if needed each day for severe pain. 7 tablet 025 Active Continuous Glucose Sensor (FreeStyle Joelle 2 Sensor) miscIndications :Type 2 diabetes mellitus with hyperglycemia, with long-term current use of insulin ([facility]) Use as directed 2 each 025 Active FREESTYLE LITE test stripIndication s:Type 2 diabetes mellitus with hyperglycemia, with long-term current use of insulin (CMS/HCC) USE DIRECTED TO TEST BLOOD SUGAR FOR 5 DAYS 100 strip 11 025 Active TRUEplus Lancets 33G miscIndications :Type 2 diabetes mellitus with hyperglycemia, with long-term current use of insulin (CMS/HCC) USE DIRECTED TO TEST BLOOD SUGAR FIVE TIMES DAILY 100 each 11 025 Active Continuous Blood Gluc Sensor (FreeStyle Joelle 2 Sensor) misc Use as directed 2 each 023 2024 Discontinued(R eorder (will not trigger notification to Pharmacy)) Easy Touch Lancets 33G/Twist miscIndications :Type 2 diabetes mellitus with hyperglycemia, with long-term current use of insulin ([facility]) USE UP TO FIVE TIMES DAILY TO TEST BLOOD SUGAR 100 each 11 024 2024 Discontinued FREESTYLE LITE test stripIndication s:Type 2 diabetes mellitus with hyperglycemia, with long-term current use of insulin ([facility]) USE TO TEST 5 TIMES DAILY 100 each 024 2024 Discontinued traMADol (Ultram) 50 MG tabletIndicatio ns:Chronic low back pain, unspecified back pain laterality, unspecified whether sciatica present TAKE 1 TABLET BY MOUTH ONCE DAILY NEEDED FOR SEVERE PAIN 7 tablet 024 2024 Discontinued(R eorder (will not trigger notification to Pharmacy)) Ozempic, 2 MG/DOSE, 8 MG/3ML solution pen-injectorInd ications:Type 2 diabetes mellitus with hyperglycemia, with long-term current use of insulin ([facility]) Inject 2 MG SUBCUTANEOUSLY EVERY 7 DAYS IN THE ABDOMEN, THIGHS OR UPPER ARM. ROTATE INJECTION SITES. 3 mL 1 025 2024 Discontinued acetaminophen (Tylenol) 500 MG tabletIndicatio ns:Acute pain of right shoulder Take 2 tablets (1,000 mg) by mouth every 6 (six) hours if needed for mild pain for up to 14 days. 112 tablet 025 2024 Diclofenac Sodium 1 % gelIndications: Acute pain of right shoulder Apply 1 g topically if needed in the morning, at noon, and at bedtime (pain). 100 g 1 025 2024 Active Problems Problem Noted Date Diagnosed Date [...] elastography - FIB4 index 1.51 - GI: [facility] - continue working on lifestyle modifications - [...] -on GLP-1 agonist for DM -followed by [facility] GI, last seen in June 2023 -continue metoclopramide 10 mg tid, with caution due to its side effect Assessment & Plan (05/24/2022 3:57 PM EDT): -on GLP-1 agonist for DM -seen by GI on 03/19/22, restarted on metoclopramide -continue metoclopramide 10 mg tid Peripheral arterial occlusive disease 08/13/2016 Assessment & Plan (04/04/2024 11:42 AM EST): -Followed by [facility] provider -most recent PAWAN doppler on 08/13/21, moderate stenosis in b/l SFA and popliteal arteries -continue working on risk factor management -pt has been on cilostazol since 2017 - Ordered VASC US Lower Extremity Venous Insufficiency Bilateral - Ordered Vascular US lower extremity arterial duplex bilateral with VEENA Assessment & Plan (06/15/2023 11:00 AM EDT): -Followed by [facility] provider -most recent PAWAN doppler on 08/13/21, moderate stenosis in b/l SFA and popliteal arteries -continue working on risk factor management -pt has been on cilostazol since 2017 Assessment & Plan (10/19/2022 6:00 AM EDT): -Followed by [facility] provider -most recent PAWAN doppler on 08/13/21, moderate stenosis in b/l SFA and popliteal arteries -continue working on risk factor management -pt has been on cilostazol since 2017 Assessment & Plan (05/24/2022 3:54 PM EDT): -Followed by [facility] provider -most recent PAWAN doppler on 08/13/21, moderate stenosis in b/l SFA and popliteal arteries -continue working on risk factor management -pt has been on cilostazol since 2017 Assessment & Plan (03/15/2022 5:49 PM EST): -Followed by [facility] provider -most recent PAWAN doppler on 08/13/21, moderate stenosis in b/l SFA and popliteal arteries -continue working on risk factor management -pt has been on cilostazol since 2017 Hemorrhoids 07/01/2015 Chronic recurrent major depressive disorder 02/23 Assessment & Plan (06/15/2023 11:01 AM EDT): [facility] provider: Olayinka Cortez Counseling Current medications: venlafaxine; buspirone; hydroxyzine Continue following recommendation by [facility] providers Patient lost her in Jan 2020 due to COVID and has been grieving. Patient is currently with her family and seems to have good support. Continue current S. Assessment & Plan (10/19/2022 6:03 AM EDT): [facility] provider: Olayinka Cortez Counseling Current medications: venlafaxine; buspirone; hydroxyzine Continue following recommendation by [facility] providers Patient lost her in Jan 2020 due to COVID and has been grieving. Patient is currently with her family and seems to have good support. Continue current S. Assessment & Plan (05/24/2022 4:01 PM EDT): [facility] provider: Olayinka Cortez Counseling Current medications: venlafaxine; buspirone; hydroxyzine Continue following recommendation by [facility] providers Patient lost her in Jan 2020 due to COVID and has been grieving. Patient is currently with her family and seems to have good support. Continue current S. Assessment & Plan (03/15/2022 5:50 PM EST): [facility] provider: Olayinka Cortez Counseling Current medications: venlafaxine; buspirone; hydroxyzine Continue following recommendation by [facility] providers Patient lost her in Jan 2020 [...] BB dose in May 2023. -Followed by [facility], last seen on 09/17/22 -Continue working on [...] BB dose in May 2023. -Followed by [facility], last seen on 09/17/22 -Continue working on [...] BB dose in May 2023. -[facility] last seen on 09/17/22 -Continue working [...] <130/80 per ACC/AHA -BP slightly low. Her media promoter has suggested to taper down her diuretics since she had GSV ablation. -[facility], last seen on 09/17/22 -Continue current [...] per ACC/AHA -BP within acceptable range. Her media promoter has suggested to taper down her diuretics since she had GSV ablation. -[facility] last seen on 09/17/22 -Continue current lifestyle [...] per ACC/AHA -BP within acceptable range. Her media promoter has suggested to taper down her diuretics since she had GSV ablation. -[facility] last seen on 12/10/21 -Continue current lifestyle [...] per ACC/AHA -BP within acceptable range. Her media promoter has suggested to taper down her diuretics since she had GSV ablation. -[facility], last seen on 12/10/21 -Continue current lifestyle [...] from 7.9% on 12/21/23 -Previously following with [facility] endocrinology, discharged in May 2023 due to stability -Continue Tresiba 70 units qAM (discrepancy from radio interference expert's note) -Continue Humalog 10 units before breakfast, [...] -A1C 7.9% on 12/21/23 -Previously following with [facility] endocrinology, discharged in May 2023 due to stability -Continue Tresiba 70 units qAM (discrepancy from radio interference expert's note) -Continue Humalog 10 units before breakfast, [...] 7.2% on 06/15/23, improving -Previously following with [facility] endocrinology, discharged in May 2023 due to stability -Continue Tresiba 70 units qAM (discrepancy from radio interference expert's note) -Continue Humalog 10 units before breakfast, [...] PM EDT): -A1C 7.2% on 06/15/23, improving -Store Promoter: [facility], last seen on Sep 2022 -Continue Tresiba 70 units qAM (discrepancy from radio interference expert's note) -Continue Humalog 10 units before breakfast, [...] yet with hypoglycemia. 8.6% in Feb 2022 -Store Promoter: [facility], last seen on Sep 2022 -Continue Tresiba 70 units qAM (discrepancy from radio interference expert's note) -Continue Humalog 10 units before breakfast, [...] PM EDT): -A1C 8.6% today 03/11/22, improving -Store Promoter: [facility], last seen on 02/13/22 -Continue Tresiba 70 units qAM (discrepancy from radio interference expert's note) -Continue Humalog 8 units before breakfast, [...] PM EST): -A1C 8.6% today 03/11/22, improving -Store Promoter: [facility], last seen on 02/13/22 -Continue Tresiba 70 units qAM (discrepancy from radio interference expert's note) -Continue Humalog 8 units before breakfast, [...] Encounters Date Type Department Care Team Description 06/24/2024 Refill [facility] [address] [place] [id number] Neyda Chacko MD Type 2 diabetes mellitus with hyperglycemia, with long-term current use of insulin ([facility]) 06/21/2024 3:45 PM EDT Office Visit [facility] [address] [place] [address] May Bethea FNP Chronic right shoulder pain (Primary Dx) 06/21/2024 Orders Only [facility] [address] [place] [address] Kat Camarena MD 06/21/2024 Travel 06/20/2024 Telephone [facility] [address] [place] [address] Neyda Chacko MD 06/19/2024 Telephone [facility] [address] [place] [address] Neyda Chacko MD DME CGM 06/14/2024 Refill [facility] [address] [place] [phone] Neyda Chacko MD Type 2 diabetes mellitus with hyperglycemia, with long-term current use of insulin ([facility]) (Primary Dx) 06/14/2024 Refill [facility] [address] [place] [address] Neyda Chacko MD Chronic low back pain, unspecified back pain laterality, unspecified whether sciatica present 06/12/2024 Refill [facility] [address] [place] [address] Neyda Chacko MD Type 2 diabetes mellitus with hyperglycemia, with long-term current use of insulin (CMS/HCC) 06/07/2024 Telephone [facility] [address] [place] [phone] Neyda Chacko MD may recall 05/24/2024 9:40 AM EDT Office Visit [facility] [address] [place] [phone] Dina Torres NP Acute pain of right shoulder (Primary Dx); Elevated blood pressure reading in office with diagnosis of hypertension 05/24/2024 Telephone [facility] [address] [place] [address] Dina Torres NP 05/22/[address] [address] Suzette Cárdenas, cafe server; Imaging Orders 05/20/2024 Orders Only [facility] [address] [place] [address] Neyda Chacko MD Chronic right shoulder pain (Primary Dx) 05/19/2024 Telephone [facility] [address] [place] [phone] Neyda Chacko MD Nurse Triage 05/18/2024 Refill [facility] [address] [place] [address] Neyda Chacko MD 05/04/2024 Telephone [facility] [address] [place] [address] Neyda Chacko MD Nurse Triage 05/04/2024 Telephone [facility] [address], [place] [phone] Neyda Chacko MD 04/15/[address] [phone] Neyda Chacko MD Peripheral arterial occlusive disease (CMS/HCC) 04/13/2024 Refill [facility] [address] [place], [place] [phone] Neyda Chacko MD Type 2 diabetes mellitus with hyperglycemia, with long-term current use of insulin (CMS/HCC) 04/12/2024 Orders Only [facility] External Provider, [facility] 04/03/2024 Telephone [facility] [address] [place] [address] Morena Mcneill, animal care attendant Question 03/30/2024 11:00 AM EST Office Visit [address] [address] Neyda Chacko MD Type 2 diabetes mellitus with hyperglycemia, with long-term current use of insulin (CMS/HCC) (Primary Dx); Essential hypertension; Mass of axillary tail of right breast; Transaminitis; Dyslipidemia; Metabolic dysfunction-associate d steatotic liver disease (MASLD); Peripheral venous insufficiency; Peripheral arterial occlusive disease (CMS/HCC); Weight loss; Dietary counseling; Exercise counseling; Overweight 03/30/2024 Travel from Last 3 Months Immunizations Name Administration [...] Mass Index 29.49 06/21/2024 4:08 PM EDT Plan of Treatment Upcoming Encounters Date Type Department Care Team (Late st Contact Info) Description 07/11/2024 1:15 PM EDT Office Visit [facility] [address] [place] [phone] Neyda Chacko MD [address] [place] [address] Health Maintenance Due Date Last Done Comments [...] Alcohol/Substance Use Screening 12/20/2024 12/21/2023 Tobacco Screening 06/21/2025 06/21/2024 Colonoscopy 08/15/2025 08/15/2020 Colorectal Cancer Screening 08/15/2025 [...] long-term current use of insulin (CMS/HCC) BI MAMMOGRAM DIAGNOSTIC TOMOSYNTHESIS BILATERAL Routine 03/15/2024 11:15 AM EST Breast pain, right ALBUMIN, RANDOM URINE W/CREATININE Routine 12/15/2023 11:00 AM EDT Type 2 diabetes mellitus with hyperglycemia, with long-term current use of insulin (CMS/HCC) LIPID PANEL WITH REFLEX TO DIRECT LDL Routine 12/15/2023 11:00 AM EDT Type 2 diabetes mellitus with hyperglycemia, with long-term current use of insulin ([facility]) Dyslipidemia DIABETES EYE EXAM Routine 12/25/2022 PERIODIC [...] AM EDT Narrative 05/24/2024 10:41 AM EDT ?[facility] ?[address] ?[place] [address] ?XRay Report ? Signed ? Patient: Jaimee Guzman I ?MR#: [id number] ?? 2030 ? : 1960 ?Acct:[id number] ? Age/Sex: 64 / F ?ADM Date: 05/24/24 ? Loc: HO.HHCX ? Attending Dr: Dina Torres ? Ordering Physician: Dina Torres ?? Date of Service: 05/24/24 ?? Procedure(s): XR shoulder RT min 2V ?? Accession Number(s): [id number] ? cc: Dina Torres ? EXAMINATION: ??XR [...] ??Samuel Graff MD ??05/24/2024 10:37 AM EDT ? Dictated By: ?Samuel Graff MD ? Signed By: ?<Electronically signed by Samuel Graff MD in OV> ?05/24/24 1037 ? DD/ 1009 ? TD/TT: 05/24/24 1022 ? Scada Engineer: ? Procedure Note Abhishek Cowart - 05/24/[address] [address] XRay Report Signed Patient: Jaimee Guzman IMR#: [id number] 2030 : 9Acct:[id number] Age/Sex: 64 / FADM Date: 05/24/24 Loc: HO.HHCX Attending Dr: Dina Torres Ordering Physician: Dina Torres Date of Service: 05/24/24 Procedure(s): XR shoulder RT min 2V Accession Number(s): [id number] cc: Dina Torres EXAMINATION: XR SHOULDER 2 [...] 05/24/24 1037 DD/ 1009 TD/TT: 05/24/24 1022 Scada Engineer: us Dina Torres BINDER FOLDER OPERATOR IMG XR PROCEDURES Edited Result - Final * VASC US Lower Extremity Venous Duplex Bilateral (05/03/2024 10:25 AM EDT) 05/03/2024 10:2 5 AM EDT Narrative [facility] - 05/03/2024 12:27 PM EDT ? [facility] ?[address] ?[place], [place] [address] ? Ultrasound Report ? Signed ? Patient: Thomas,Jaimee I ?MR#: [id number] ?? 2030 ? : 1960 ?Acct:[id number] ? Age/Sex: 64 / F ?ADM Date: 05/03/24 ? Loc: HO.US ? Attending Dr: Neyda Chacko MD ? Ordering Physician: Neyda Chacko MD ?? Date of Service: 05/03/24 ?? Procedure(s): US venous duplex LE BI ?? Accession Number(s): [id number] ? cc: Neyda Chacko MD ? EXAMINATION: [...] DD/ 1025 ? TD/TT: 05/03/24 1103 ? Scada Engineer: ? Procedure Note Supa, Image - 05/03/[address] [address] Ultrasound Report Signed Patient: Jaimee Guzman [facility]#: [id number] 2030 : 9Acct:[id number] Age/Sex: 64 / FADM Date: 05/03/24 Loc: HO.US Attending Dr: Neyda Chacko MD Ordering Physician: Neyda Chacko MD Date of Service: 05/03/24 Procedure(s): US venous duplex LE BI Accession Number(s): [id number] cc: Neyda Chacko MD EXAMINATION: US LOWER [...] 05/03/24 1224 DD/ 1025 TD/TT: 05/03/24 1103 Scada Engineer: us Neyda Chacko MD CV VASCULAR PROCEDURES Final Res ult [facility] [address] [place] [address] * US Abdomen Comp w elastography (05/03/2024 10:04 AM EDT) Anatomical Region Laterality Modality Abdomen Ultrasound 05/03/2024 10:0 4 AM EDT Narrative 05/03/2024 12:23 PM EDT ? [facility] ?[address] ?[place] [address] ? Ultrasound Report ? Signed ? Patient: Guzman,Jaimee I ?MR#: [id number] ?? 2030 ? : 1960 ?Acct:[id number] ? Age/Sex: 64 / F ?ADM Date: 05/03/24 ? Loc: HO.US ? Attending Dr: Neyda Chacko MD ? Ordering Physician: Neyda Chacko MD ?? Date of Service: 05/03/24 ?? Procedure(s): US abdomen comp w elastography ?? Accession Number(s): [id number] ? cc: Neyda Chacko MD ? EXAMINATION: [...] ??Samuel Graff MD ??05/03/2024 12:20 PM EDT ?? RP ? Dictated By: ?Samuel Graff MD ? Signed By: ?<Electronically signed by Samuel Graff MD in OV> ?05/03/24 1220 ? DD/ 1004 ? TD/TT: 05/03/24 1019 ? Scada Engineer: ? Procedure Note Supa, Image - 05/03/2024 [place] [address] Ultrasound Report Signed Patient: Jaimee Guzman IMR#: [id number] 2030 : 9Acct:[id number] Age/Sex: 64 / FADM Date: 05/03/24 Loc: HO.US Attending Dr: Neyda Chacko MD Ordering Physician: Neyda Chacko MD Date of Service: 05/03/24 Procedure(s): US abdomen comp w elastography Accession Number(s): [id number] cc: Neyda Chacko MD EXAMINATION: US ABDOMEN [...] 05/03/24 1220 DD/ 1004 TD/TT: 05/03/24 1019 Scada Engineer: us Neyda Chacko MD IMG US PROCEDURES Final Result * Hematoxylin and Eosin Stain (04/12/2024 10:44 AM EST) 04/12/2024 10:4 4 AM EST 04/12/2024 11:16 AM EST [facility] - 04/13/2024 4:09 PM EST ----- ------- Name: Jaimee Guzman I ? Age/Sex: 64/F ? : 1960 Unit#: [id number] ?? Attend Dr: Walter Moon MD ?Re04/12/24 ?Status: DEP REF ? Location: HO.MAMMO ?Disch: ? ----- ------- SPEC : [id number] ?RECD: 04/12/24-6 ? STATUS: ??SOUT ? REQ NUM: [id number] ? HUMBERTO: 04/12/24 ? SUBM DR: Nereyda [...] Copies To: ?? Walter Moon MD ?? [facility] General Surgeons ?? [address] ?? [place] [address] ?? [phone] ?? Neyda Chacko MD ?? [facility] ?? [address] ?? [place] [address] ?? [phone] ? CONTINUED ON NEXT PAGE ----- ------- Name: Jaimee Guzman I ? Age/Sex: 64/F ? : 1960 Unit#: [id number] ?? Attend Dr: Walter Moon MD ?Re04/12/24 ?Status: DEP REF ? Location: HO.MAMMO ?Disch: ? ----- ------- SPEC : [id number] ?RECD: 04/12/24-1116 ? STATUS: ??SOUT ? REQ NUM: [id number] ? HUMBERTO: 04/12/24-1043 ? SUBM DR: Nereyda Carvajal DO ? ENTERED: ??04/12/24 ?SP TYPE: Surgical ? OTHR DR: Walter Moon MD ?Neyda Chacko MD ORDERED: ??HE Stain/2, Gross Micro L4 ? COMMENTS: As per the specimen requisition slip the specimen is ?collected at 1044 and placed in formalin at 1052. Copies To: ??(Continued) ?? Nereyda Carvajal DO ?? [address] ?? [place] [address] ?? [phone] ----- ------- Signed (signature on file) Yash Moreno MD 04/13/24 0289 ? ----- ------- ? END OF REPORT ? us Generic External Data Provider LAB BLOOD ORDERAB LES Final Result [facility] [address] [place] [address] [phone] * US BREAST NDL CORE BIOPSY RT (04/12/2024 10:00 AM EST) Anatomical Region Laterality Modality Abdomen Ultrasound 04/12/2024 10:0 0 AM EST Narrative 04/12/2024 12:13 PM EST ? [place] [facility] ? [address] ?[place] [address] ? Ultrasound Report ? Signed with Addenda ? Patient: Guzman,Jaimee I ?MR#: [id number] ?? 2030 ? : 1960 ?Acct:[id number] ? Age/Sex: 64 / F ?ADM Date: 04/12/24 ? Loc: HO.MAMMO ? Attending Dr: Walter Moon MD ? Ordering Physician: Walter Moon MD ?? Date of Service: 04/12/24 ?? Procedure(s): US breast ndl core biopsy RT ?? Accession Number(s): [id number] ? cc: Walter Moon MD; Neyda Chacko [...] instructions. Final pathology results are pending. ? / breast ndl core biopsy RT ?? IMPRESSION: [...] Signed By: ?<Electronically signed by Nereyda Carvajal, in OV> ? 04/12/24 1210 ? DD/ 1000 ? TD/TT: 04/12/24 1100 ? Scada Engineer: ? Procedure Note Donhardynahomiter, Image - 04/19/2024 [place] [facility] [address] [place] [address] Ultrasound Report Signed with Esa Patient: Jaimee Guzman IMR#: [id number] 2030 : 9Acct:[id number] Age/Sex: 64 / FADM Date: 04/12/24 Loc: HO.MAMMO Attending Dr: Walter Moon MD Ordering Physician: Walter Moon MD Date of Service: 04/12/24 Procedure(s): breast ndl core biopsy RT Accession Number(s): [id number] cc: Walter Moon MD; Neyda Chacko MD; [...] in OV> 04/12/24 1210 DD/ 1000 TD/TT: 04/12/241099 Scada Engineer: [facility] External Provider IMG US PROCEDURES Edited Result - Final * (ABNORMAL) POCT glycosylated hemoglobin (Hgb A1c) (03/30/2024 11:51 AM EST) Hemoglobin A1C 7.7(A) 4.0 - 6.0 % QC Media Lot # [id number] Lot# Expiration Date ,026 Blood Capillary blood specimen / Unknown 03/30/2024 11:51 AM EST Neyda Chacko MD POINT OF CARE TEST ENTER/EDIT OR DERABLES Final Result * POCT glucose manually resulted (03/30/2024 11:35 AM EST) Pathologist [facility] [facility] Glucose Blood, POC 192 60 - 200 mg/dL QC Media Lot # [id number] Lot# Expiration Date [id number] Blood Capillary blood specimen / Unknown 03/30/2024 11:35 AM EST Neyda Chacko MD POINT OF CARE TEST ENTER/EDIT OR DERABLES Final Result * BI Mammogram Diagnostic Tomosynthesis Bilateral (03/15/2024 11:15 AM EST) Anatomical Region Laterality Modality Breast Bilateral Mammography 03/15/2024 11:1 5 AM EST Narrative 03/15/2024 12:29 PM EST ? [facility] [place] ? [address] ?[place] [address] ? Mammography Report ? Signed ? Patient: Jaimee Guzman I ?MR#: [id number] ?? 2030 ? : 1960 ?Acct:[id number] ? Age/Sex: 63 / F ?ADM Date: 01/22/25 ? Loc: HO.MAMMO ? Attending Dr: Neyda Chacko MD ? Ordering Physician: Neyda Chacko MD ?Results: 4Suspicio ?? us Finding ? Date of Service: 03/15/24 ?Follow Up: Biopsy Recommend ?? ed ? Procedure(s): MM tomosynthesis diagnostic BI ?? Accession Number(s): [id number] ? cc: Neyda Chacko MD ? EXAMINATION: [...] DD/ 1115 ? TD/TT: 03/15/24 1140 ? Scada Engineer: ? Procedure Note Donotuseinterpreter, Image - 03/15/2024 Reyna [facility] [address] [place], [place] [address] Mammography Report Signed Patient: Jaimee Guzman IMR#: [id number] 2030 : 9Acct:[id number] Age/Sex: 63 / FADM Date: 03/15/24 Loc: NATHALY Attending Dr: Neyda Chacko MD Ordering Physician: Neyda Chacko MDResults: 4Suspicio us Finding Date of Service: 03/15/24Follow Up: Biopsy Recommend ed Procedure(s): MM tomosynthesis diagnostic BI Accession Number(s): [id number] cc: Neyda Chacko MD EXAMINATION: MM DIAGNOSTIC [...] by: Nereyda Carvajal DO 03/15/2024 12:26 PM [facility] Dictated By: Nereyda Carvajal DO Signed By: <Electronically signed by Nereyda Carvajal DO in OV> 03/15/24 1226 DD/ 1115 TD/TT: 03/15/24 1140 Scada Engineer: Neyda Chacko MD IMG BI PROCEDURES Final Result * Lipid Panel with Reflex to Direct LDL (12/15/2023 11:00 AM EDT) Triglycerides 45 <150 mg/dL [facility] Comment:Desirable Triglyceri de: less than 150 mg/dLBorderline High Triglyceride 150-199 mg/dLHigh Triglyceride: 200-499 mg/dLVery High Triglyceride: greater than or equal to 5OO mg/dL Cholesterol 113 <200 mg/dL [facility] Comment:Desirable Cholestero l: less than 200 mg/dLBorderline High Cholesterol: 200-239 mg/dLHigh Cholesterol: greater than 239 mg/dL LDL Cholesterol Calculated 51 <100 mg/dL [facility] Comment:Desirable LDL: less than 100 mg/dLNear Optimal/Above Optimal LDL: 110- 129 mg/dLBorderline High LDL: 130-159 mg/dLHigh LDL: 160-189 mg/dLVery High LDL: greater than or equal to 190 mg/dL HDL Cholesterol 53 >40 mg/dL [facility] Comment:Desirable HDL: great er than 40 mg/dL Note: This HDL assay may give artificially low results in patients with liver disease. Blood 12/15/2023 11:0 0 AM EDT 12/15/2023 1:24 PM EDT Neyda Chacko MD LAB BLOOD ORDERABLES Final Resul t Performing Organization Address [facility] de Phone Number [facility] [address] [place] [phone] * Albumin, Random Urine W/Creatinine (12/15/2023 11:00 AM EDT) Creatinine, Urine 75.29 mg/dL [facility] Microalbumin Urine 21.0 mg/L [facility] Microalbum Creatinine Ratio Ur 27.8 <30 ug/mg cr [facility] Comment:Albumin/Creatinine R atio Reference Ranges: Normal: < 30 ug/mg creatinine Microalbuminuria: 30 - 300 ug/mg creatinineClinical Albuminuria: > 300 ug/mg creatinine Urine 12/15/2023 11:0 0 AM EDT 12/15/2023 1:12 PM EDT Neyda Chacko MD LAB URINE ORDERABLES Final Resul t Performing Organization Address [facility] Co de Phone Number [facility] [address] [place] [phone] * Diabetes Eye Exam (12/25/2022) Eye Exam Normal Normal Historical Provider HEALTH MAINTENANCE Final Result * Colonoscopy (08/15/2020) Colonoscopy Normal Normal Historical Provider HEALTH MAINTENANCE Final Result * HPV E6/E7 RFLX LINDSAY 16 18/45 (12/27/2019 1:40 PM EST) HPV mRNA E6/E7 rflx Not Detected Not Detected [facility] Comment: This test was performed using the APTIMA HPV Assay ([employer] This assay detects E6/E7 viral messenger RNA (mRNA) from 14 high-risk HPV types (16,18,31,33,35,39,45,51,52,56,58,59,66,68). The analytical performance characteristics of this assay have been determined by [employer]. The modifications have not been cleared or approved by the FDA. This assay has been validated pursuant to the CLIA regulations and is used for clinical purposes. THIS TEST WAS PERFORMED AT: [facility] [address] [place] [address] [address] [place], [place] ??[phone] RENE MULLINS MD 12/27/2019 1:40 PM EST us Ry Curtis MD HISTORICAL/NON ORDERABLE LABS Fi nal Result [facility] from Last 3 Months or Most Recently Relevant to Health Maintenance Insurance [address] [place] [id number] [facility] OPTIONS (HMO D-SNP) [address] [place] [id number] [facility] [address] [place] [address] [address] [place] [address] [address] [place] [address] Care Teams Delivery Assistant Relationship Specialty Start Date End Date Neyda Chacko MD [address] [place] [phone] PCP - General Family Medicine 02/22/18
--- OUTSIDE RECORDS SUMMARY | 2024-06-26 12:31 | XMS_ITS | Encounter Summary ---
Author Organization [employer] Address [address] [place] [address] Care Team Providers Care Glass Fitter Name Role Phone Neyda Chacko MD Primary Care Provider [phone] Encounter Details Date Type Department Care Team (Late st Contact Info) Description 07/14/2023 Orders Only [facility] [address] [place], [place] [phone] Neyda Chacko MD [address] [place], [place] [phone] Social History Tobacco Use Types Packs/Day Years [...] 07/11/2024 1:15 PM EDT Office Visit [facility] [address] [place] [phone] Neyda Chacko MD [address] [place] [phone] documented as of this encounter Visit Diagnoses Not on filedocumented in this encounter Additional Health Concerns Assessment Noted Time PHQ-9 Depression Total Score: 7 06/15/19 24 10:57 AM EDT documented as of this encounter Care Teams Glass Fitter Relationship Specialty Start Date End Date Neyda Chacko MD [address] [place] [phone] PCP - General Family Medicine 02/22/18 documented as of this encounter
--- OUTSIDE RECORDS SUMMARY | 2024-06-26 12:31 | XMS_ITS | Encounter Summary ---
Author Organization [employer] Address [address] [facility] [address] [place] [address] Care Team Providers Care Welt Sewer Name Role Phone Neyda Chacko MD Primary Care Provider [phone] Reason for Visit * Reason Onset Date Comments Durable Medical Equipment 01/26/2023 Encounter Details Date Type Department Care Team (Late st Contact Info) Description 01/26/[address] [facility] [address] [place], [place] [phone] Neyda Chacko MD [address] [place], [place] [phone] Durable Medical Equipment Social History Tobacco Use [...] readings would like the patient to use [employer] Joelle 2 System documented in this encounter Plan of Treatment Upcoming Encounters Date Type Department Care Team (Late st Contact Info) Description 07/11/2024 1:15 PM EDT Office Visit [facility] [address] [place] [address] Neyda Chacko MD [address] [place] [address] documented as of this encounter Visit Diagnoses Not on filedocumented in this encounter Additional Health Concerns Assessment Noted Time PHQ-9 Depression Total Score: 5 03/12/19 23 10:44 AM EST documented as of this encounter Care Teams Welt Sewer Relationship Specialty Start Date End Date Neyda Chacko MD [address] [place] [phone] PCP - General Family Medicine 02/22/18 documented as of this encounter
== END 2024-06-26 11:09 | disposition home or self-care (01) ==
LOC: HO.HGS 10:54
PROVIDERS: PCP Family Medicine; Visit Provider Surgery
DX: L72.3 Sebaceous cyst (principal); L08.9 Local infection of the skin and subcutaneous tissue, unspecified
CPT/HCPCS: 99213

== ENCOUNTER → 2024-06-26 10:54 | Outpatient (BNVA) | payer OTHER, SELFPAY | PROVIDERS: PCP Family Medicine; Visit Provider Surgery | DX: M25.511 Pain in right shoulder (principal); Z87.2 Personal history of diseases of the skin and subcutaneous tissue; Z91.81 History of falling; Z98.890 Other specified postprocedural states | CPT/HCPCS: 99212 ==

== ENCOUNTER 2024-07-06 10:47 | Outpatient (AMB) | payer OTHER, SELFPAY ==
--- NOTE | 2024-07-06 10:53 | MHC.OFFVIS ---
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 Hx of 2 injuries/unsure how long ago it happened. Patient reports ongoing pain for about a month. She states that her pain is on the anterior aspect of the shoulder and sometimes it takes over her whole shoulder. Patient finds it difficult to do her hair and her ROM is very limited. Patient has gone to PT which was referred by her PCP. 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 Guzman is a 64 year old right hand dominant female who presents to the office today with her sister for a evaluation of right shoulder pain. Patient reports a history of 2 injuries/unsure how long ago it happened. She reports the most recent injury was due to a fall landing on an outstretched right arm and then landing directly onto the right shoulder. Patient reports ongoing pain for about a month. Patient reports that she has significant limited range of motion due to pain. She has been attending physical therapy but reports she has only tendon about 5 sessions. After those 5 sessions the physical therapist recommended additional orthopedic evaluation and a pause within her treatment until she was evaluated. 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 Obesity with body mass index of 30.0-39.9 Hypoglycemia associated with type 2 diabetes mellitus Diabetes type 2, uncontrolled Heart murmur COVID-19 vaccine administered Diabetic neuropathy associated with type 2 diabetes mellitus Background diabetic retinopathy associated with type 2 diabetes mellitus PATRICIA (obstructive sleep apnea) Hemorrhoids Asthma Type 2 diabetes mellitus with mild nonproliferative diabetic retinopathy without macular edema, bilateral Type 2 diabetes mellitus with hyperglycemia, with long-term current use of insulin Essential hypertension Dyslipidemia Menometrorrhagia Polypharmacy Depression Allergic rhinitis Venous insufficiency Anemia Obesity Constipation HTN (hypertension) Surgical History History of esophagogastroduodenoscopy (EGD) Hx of colonoscopy History of bilateral tubal ligation Family History Father No problems noted. Mother Heart disease HTN (hypertension) Diabetes Pacemaker Depression Family/Other Diabetes Daughter Cancer Social History Household Members: None Are you a primary home health aide caregiver to a significant other at home: No Do you presently have visiting nurse or other home services: No Alcohol intake: never Patient Tobacco Use Status: Never used Tobacco Sexual orientation: Straight/Heterosexual Gender identity: Female Female Reproductive History Menstrual Age of Menarche: 10 Review of Systems Const All systems reviewed & are unremarkable except as noted in HPI and below Physical Exam Vital Signs: BMI result Body Mass Index 28.0 Const General: cooperative, healthy appearing and no acute distress Resp Effort & Inspection: normal respiratory effort and able to speak in complete sentences Extrem Other: Right shoulder: Forward flexion and abduction to 90 degrees. External rotation to 45 degrees. Pain with cross-body reach. 3/5 strength with empty can. Negative drop arm. NVI. Office Procedures AMB Joint Injection/Aspiration Joint Injection/Aspiration Primary Site: right shoulder Prep: site was prepped using aseptic technique, ethochloride spray was applied and injection warnings given Injected: 40 mg of, with 8 mL of (2% plain lido ) and in the subcromial space Approach Used: posterolateral Procedure: The patient tolerated the procedure well, but had some pain with the injection and there was some relief with the local anesthesia Coding 97892 - Large joint Procedure code (CPT) selection complete Assessment & Plan Assessment & Plan (1) Diabetes: Code(s): E11.9 - Type 2 diabetes mellitus without complications Category: Medical (2) Painful arc syndrome of right shoulder: Code(s): M75.101 - Unspecified rotator cuff tear or rupture of right shoulder, not specified as traumatic Category: Medical Plan Ms. Guzman is a 64 year old right hand dominant female who presents to the office today with her sister for a evaluation of right shoulder pain. Patient reports a history of 2 injuries/unsure how long ago it happened. She reports the most recent injury was due to a fall landing on an outstretched right arm and then landing directly onto the right shoulder. Patient reports ongoing pain for about a month. Patient reports that she has significant limited range of motion due to pain. She has been attending physical therapy but reports she has only tendon about 5 sessions. After those 5 sessions the physical therapist recommended additional orthopedic evaluation and a pause within her treatment until she was evaluated. The patient was offered a cortisone injection in the right shoulder with 40 mg of DepoMedrol. The patient was explained the risks, benefits, and alternatives to receiving this injection. After receiving consent for the injection, the patient had the procedure done while in the office today. The patient tolerated the procedure well with no complications. Due to the patient?s history of diabetes, they were instructed to monitor their blood glucose level. The patient was informed that they could see a rise in their numbers and if the numbers became too high, they were instructed to call their PCP. The patient was also informed that they could have facial flushing as a side effect of the injection, but this will pass. Additionally, the patient will continue working with physical therapy. Follow-up will be 8 weeks, or sooner if needed X-rays of the right shoulder which were obtained on 05/24/2024 were negative for any acute fracture or dislocation. Coding Level of Care Code New Pt Level 4 (61586) Diagnoses Diabetes E11.9 Painful arc syndrome of right shoulder M75.101 CPT Codes Coding - 83927 Large joint: 90713 - Large joint ([id number])
[2024-07-06 10:58] VITALS: BMI 28.0
--- OUTSIDE RECORDS SUMMARY | 2024-07-06 11:54 | XMS_ITS | Encounter Summary ---
Author Organization [employer] Address [address] [facility] [address] [place] [address] Care Team Providers Care Crane Rigger Name Role Phone Neyda Chacko MD Primary Care Provider [phone] Encounter Details Date Type Department Care Team (Late st Contact Info) Description 03/06/2022 Orders Only [facility] [address] [place] [address] [phone] Misa Tillman LPN Social History Tobacco Use [...] Description 07/11/2024 1:15 PM EDT Office Visit [facility] [address] [place] [phone] Neyda Chacko MD [address] [place] [phone] documented as of this encounter Visit Diagnoses Not on filedocumented in this encounter Care Teams Crane Rigger Relationship Specialty Start Date End Date Neyda Chacko MD [address] [place] [phone] PCP - General Family Medicine 02/22/18 documented as of this encounter
--- OUTSIDE RECORDS SUMMARY | 2024-07-06 11:54 | XMS_ITS | Clinical Summary ---
Author Organization [employer] Address [address] [facility] [facility] [address] [place] [address] Care Team Providers Care Manufacturing Team Leader Name Role Phone Neyda Chacko MD Primary Care Provider [phone] Allergies Active Allergy Reactions Criticality Noted Date Comments Pioglitazone 03/14/2010 Other reaction(s): unspecified Medications Blood Glucose Monitoring Suppl (Mit[employer] Maupin Lite) w/Device kit USE DIRECTED Active busPIRone [...] needed at bedtime. Active Continuous Blood Gluc Wing Coverer (QuantifindStyle Joelle 2 Jesup) device Use as directed 1 each 1 [...] 70 units subcutaneously daily 3 mL Active glucose blood (FreeStyle Precision Augustus Test) [...] 2 HORAS DESPUES DEL DESAYUNO Y LA SCHEME TECHNICIAN 60 tablet 5 025 Active lisinopril-hydr oCHLOROthiazide 20-12.5 MG tablet TAKE 2 TABLETS BY MOUTH ONCE DAILY AT NOON 180 tablet 3 025 Active baclofen (Lioresal) 10 MG tabletIndicatio ns:Acute pain of right shoulder Take one tablet TID PRN 30 tablet 025 Active Ozempic, 2 MG/DOSE, 8 MG/3ML solution pen-injectorInd ications:Type 2 diabetes mellitus with hyperglycemia, with long-term current use of insulin ([facility]) Inject 2 MG SUBCUTANEOUSLY EVERY [...] hyperglycemia, with long-term current use of insulin ([facility]) Use as directed 2 each 025 Active FREESTYLE LITE test stripIndication s:Type 2 diabetes mellitus with hyperglycemia, with long-term current use of insulin ([facility]) USE DIRECTED TO TEST BLOOD SUGAR FOR 5 DAYS 100 strip 11 025 Active TRUEplus Lancets 33G miscIndications :Type 2 diabetes mellitus with hyperglycemia, with long-term current use of insulin ([facility]) USE DIRECTED TO TEST BLOOD SUGAR FIVE TIMES DAILY 100 each 11 025 Active Continuous Blood Gluc Sensor (FreeStyle Joelle 2 Sensor) [facility] Use as directed 2 each 023 2024 Discontinued(R eorder (will not trigger notification to Pharmacy)) Easy Touch Lancets 33G/Twist miscIndications :Type 2 diabetes mellitus with hyperglycemia, with long-term current use of insulin ([facility]) USE UP TO FIVE TIMES DAILY TO TEST BLOOD SUGAR 100 each 024 2024 Discontinued FREESTYLE LITE test stripIndication s:Type 2 diabetes mellitus with hyperglycemia, with long-term current use of insulin ([facility]) USE TO TEST 5 TIMES [...] hyperglycemia, with long-term current use of insulin ([facility]) Inject 2 MG SUBCUTANEOUSLY EVERY [...] elastography - FIB4 index 1.51 - GI: [facility] - continue working [...] -on GLP-1 agonist for DM -followed by [facility] GI, last seen in June 2023 -continue metoclopramide 10 mg tid, with caution due to its side effect Assessment & Plan (05/24/2022 3:57 PM EDT): -on GLP-1 agonist for DM -seen by GI on 03/19/22, restarted on metoclopramide -continue metoclopramide 10 mg tid Peripheral arterial occlusive disease 08/13/2016 Assessment & Plan (04/04/2024 11:42 AM EST): -[facility] -most recent PAWAN doppler on 08/13/21, moderate stenosis in b/l SFA and popliteal arteries -continue working on risk factor management -pt has been on cilostazol since 2017 - Ordered VASC US Lower Extremity Venous Insufficiency Bilateral - Ordered Vascular US lower extremity arterial duplex bilateral with VEENA Assessment & Plan (06/15/2023 11:00 AM EDT): -[facility] provider -most recent PAWAN doppler on 08/13/21, moderate stenosis in b/l SFA and popliteal arteries -continue working on risk factor management -pt has been on cilostazol since 2017 Assessment & Plan (10/19/2022 6:00 AM EDT): -Followed by [facility] provider -most recent PAWAN doppler on 08/13/21, moderate stenosis in b/l SFA and popliteal arteries -continue working on risk factor management -pt has been on cilostazol since 2016 Assessment & Plan (05/24/2022 3:54 PM EDT): -Followed by [facility] provider -most recent PAWAN doppler on 08/13/21, moderate stenosis in b/l SFA and popliteal arteries -continue working on risk factor management -pt has been on cilostazol since 2017 Assessment & Plan (03/15/2022 5:49 PM EST): -Followed by [facility] provider -most recent PAWAN doppler on 08/13/21, moderate stenosis in b/l SFA and popliteal arteries -continue working on risk factor management -pt has been on cilostazol since 2017 Hemorrhoids 07/01/2015 Chronic recurrent major depressive disorder 02/23 Assessment & Plan (06/15/2023 11:01 AM EDT): [facility] provider: Olayinka Cortez Counseling Current medications: venlafaxine; buspirone; hydroxyzine Continue following recommendation by [facility] providers Patient lost her in Jan 2020 due to COVID and has been grieving. Patient is currently with her family and seems to have good support. Continue current S. Assessment & Plan (10/19/2022 6:03 AM EDT): [facility] provider: Olayinka Joiner Current medications: venlafaxine; buspirone; hydroxyzine Continue following recommendation by [facility] providers Patient lost her in Jan 2020 due to COVID and has been grieving. Patient is currently with her family and seems to have good support. Continue current BHS. Assessment & Plan (05/24/2022 4:01 PM EDT): [facility] provider: Olayinka Cortez Counseling Current medications: venlafaxine; buspirone; hydroxyzine Continue following recommendation by [facility] providers Patient lost her in Jan 2020 due to COVID and has been grieving. Patient is currently with her family and seems to have good support. Continue current BHS. Assessment & Plan (03/15/2022 5:50 PM EST): [facility] provider: Olayinka Cortez Counseling Current medications: venlafaxine; buspirone; hydroxyzine Continue following recommendation by [facility] providers Patient lost her in Jan [...] BB dose in May 2023. -[facility] on 09/17/22 -Continue [...] BB dose in May 2023. -[facility], last seen on 09/17/22 -Continue [...] BB dose in May 2023. -[facility], last seen on 09/17/22 -Continue [...] <130/80 per ACC/AHA -BP slightly low. Her nursing agency manager has suggested to taper down her diuretics since she had GSV ablation. -[facility], last seen on 09/17/22 -Continue [...] per ACC/AHA -BP within acceptable range. Her nursing agency manager has suggested to taper down her diuretics since she had GSV ablation. -[facility], last seen on 09/17/22 -Continue [...] per ACC/AHA -BP within acceptable range. Her nursing agency manager has suggested to taper down her diuretics since she had GSV ablation. -[facility], last seen on 12/10/21 -Continue [...] per ACC/AHA -BP within acceptable range. Her nursing agency manager has suggested to taper down her diuretics since she had GSV ablation. -[facility], last seen on 12/10/21 -Continue [...] from 7.9% on 12/21/23 -Previously following with [facility] endocrinology, discharged in May 2023 due to stability -Continue Tresiba 70 units qAM (discrepancy from senior java engineer's note) -Continue Humalog 10 units before breakfast, [...] -A1C 7.9% on 12/21/23 -Previously following with [facility] endocrinology, discharged in May 2023 due to stability -Continue Tresiba 70 units qAM (discrepancy from senior java engineer's note) -Continue Humalog 10 units before breakfast, [...] 7.2% on 06/15/23, improving -Previously following with [facility] endocrinology, discharged in May 2023 due to stability -Continue Tresiba 70 units qAM (discrepancy from senior java engineer's note) -Continue Humalog 10 units before breakfast, [...] PM EDT): -A1C 7.2% on 06/15/23, improving -Damper Worker: [facility], last seen on Sep 2022 -Continue Tresiba 70 units qAM (discrepancy from senior java engineer's note) -Continue Humalog 10 units before breakfast, [...] yet with hypoglycemia. 8.6% in Feb 2022 -Damper Worker: [facility], last seen on Sep 2022 -Continue Tresiba 70 units qAM (discrepancy from senior java engineer's note) -Continue Humalog 10 units before breakfast, [...] PM EDT): -A1C 8.6% today 03/11/22, improving -Damper Worker: [facility], last seen on 02/13/22 -Continue Tresiba 70 units qAM (discrepancy from senior java engineer's note) -Continue Humalog 8 units before breakfast, [...] PM EST): -A1C 8.6% today 03/11/22, improving -Damper Worker: [facility], last seen on 02/13/22 -Continue Tresiba 70 units qAM (discrepancy from senior java engineer's note) -Continue Humalog 8 units before breakfast, [...] Type Department Care Team Description 06/24/2024 Refill [facility] [address] [place] [address] Neyda Chacko MD Type 2 diabetes mellitus with hyperglycemia, with long-term current use of insulin ([facility]) 06/21/2024 3:45 PM EDT Office Visit [facility] [address] [place] [address] May Bethea FNP Chronic right shoulder pain (Primary Dx) 06/21/2024 Orders Only [facility] [address] [place] [address] Kat Camarena MD 06/21/2024 Travel 06/20/2024 Telephone [facility] [address] [place] [address] Neyda Chacko MD 06/19/2024 Telephone [facility] [address] [place] [address] Neyda Chacko MD DME CGM 06/14/2024 Refill [facility] [address] [place] [address] Neyda Chacko MD Type 2 diabetes mellitus with hyperglycemia, with long-term current use of insulin ([facility]) (Primary Dx) 06/14/2024 Refill [facility] [address] [place] [address] Neyda Chacko MD Chronic low back pain, unspecified back pain laterality, unspecified whether sciatica present 06/12/2024 Refill [facility] [address] [place] [address] Neyda Chacko MD Type 2 diabetes mellitus with hyperglycemia, with long-term current use of insulin (CMS/HCC) 06/07/2024 Telephone [facility] [address] [place] [phone] Neyda Chacko MD may recall 05/24/2024 9:40 AM EDT Office Visit [facility] [address] [place] [phone] Dina Torres NP Acute pain of right shoulder (Primary Dx); Elevated blood pressure reading in office with diagnosis of hypertension 05/24/2024 Telephone [facility] [address] [place] [phone] Dina Torres NP 05/22/2024 Telephone [facility] [address] [place] [phone] Suzette Cárdenas, cell installer; Imaging Orders 05/20/2024 Orders Only [facility] [address] [place] [phone] Neyda Chacko MD Chronic right shoulder pain (Primary Dx) 05/19/2024 Telephone [facility] [address] [place] [address] Neyda Chacko MD Nurse Triage 05/18/2024 Refill [facility] [address] [place] [address] Neyda Chacko MD 05/04/2024 Telephone [facility] [address], [place] [phone] Neyda Chacko MD Nurse Triage 05/04/2024 Telephone [facility] [address] [place] [address] Neyda Chacko MD 04/15/2024 Refill [facility] [address], [place] [phone] Neyda Chacko MD Peripheral arterial occlusive disease ([facility]) 04/13/2024 Refill [facility] [address] [place], [place] [phone] Neyda Chacko MD Type 2 diabetes mellitus with hyperglycemia, with long-term current use of insulin ([facility]) 04/12/2024 Orders Only [facility] External Provider, [facility] from Last 3 Months Immunizations Immunization Administration Dates Next Due Hep B, adult [...] Description 07/11/2024 1:15 PM EDT Office Visit [facility] [address], [place] [phone] Neyda Chacko MD [address] [place], [place] [phone] Health Maintenance Due Date Last Done Comments [...] 06/15/2023, 06/15/19 24 SDOH Screening 06/14/2024 06/15/2023 COVID-19 Vaccine ( season) 2024 12/21/2023, 01/06/2022, 07/08/2021, Additional history exists Diabetes: Hemoglobin A1C 06/27/2024 025, 12/21/2023, 06/15/2023, [...] hyperglycemia, with long-term current use of insulin ([facility]) BI MAMMOGRAM DIAGNOSTIC TOMOSYNTHESIS BILATERAL Routine 03/15/2024 11:15 AM EST Breast pain, right ALBUMIN, RANDOM URINE W/CREATININE Routine 12/15/2023 11:00 AM EDT Type 2 diabetes mellitus with hyperglycemia, with long-term current use of insulin ([facility]) LIPID PANEL WITH REFLEX TO DIRECT LDL Routine 12/15/2023 11:00 AM EDT Type 2 diabetes mellitus with hyperglycemia, with long-term current use of insulin ([facility]) Dyslipidemia DIABETES EYE EXAM Routine [...] AM EDT Narrative 05/24/2024 10:41 AM EDT ?[facility] ?[address] ?[place] [address] ?XRay Report ? Signed ? Patient: Jaimee Guzman I ?MR#: [id number] ?? 2030 ? : 1960 ?Acct:[id number] ? Age/Sex: 64 / F ?ADM Date: 05/24/24 ? Loc: HO.HHCX ? Attending Dr: Dina Torres ? Ordering Physician: Dina Torres ?? Date of Service: 05/24/24 ?? Procedure(s): XR shoulder RT min 2V ?? Accession Number(s): [id number] ? cc: Dina Torres ? EXAMINATION: ??XR [...] DD/ 1009 ? TD/TT: 05/24/24 1022 ? Public Welfare Worker: ? Procedure Note Supa, Abhishek - 05/24/2024 [facility] [address] [place] [address] XRay Report Signed Patient: Jaimee Guzman IMR#: [id number] 2030 : 9Acct:[id number] Age/Sex: 64 / FADM Date: 05/24/24 Loc: HO.HHCX Attending Dr: Dina Torres Ordering Physician: Dina Torres Date of Service: 05/24/24 Procedure(s): XR shoulder RT min 2V Accession Number(s): [id number] cc: Dina Torres EXAMINATION: XR SHOULDER 2 [...] 05/24/24 1037 DD/ 1009 TD/TT: 05/24/24 1022 Public Welfare Worker: us Dina Torres HURL SHAKER IMG XR PROCEDURES Edited Result - Final * VASC US Lower Extremity Venous Duplex Bilateral (05/03/2024 10:25 AM EDT) 05/03/2024 10:2 5 AM EDT Narrative [facility] - 05/03/2024 12:27 PM EDT ? [facility] ?[address] ?[place] [address] ? Ultrasound Report ? Signed ? Patient: Guzman,Jaimee I ?MR#: [id number] ?? 2030 ? : 1960 ?Acct:[id number] ? Age/Sex: 64 / F ?ADM Date: 03/12/25 ? Loc: HO.US ? Attending Dr: Neyda Chacko MD ? Ordering Physician: Neyda Chacko MD ?? Date of Service: 05/03/24 ?? Procedure(s): US venous duplex LE BI ?? Accession Number(s): [id number] ? cc: Neyda Chacko MD ? EXAMINATION: [...] DD/ 1025 ? TD/TT: 05/03/24 1103 ? Public Welfare Worker: ? Procedure Note Donotuseinterpreter, Image - 05/03/2024 [place] [address] Ultrasound Report Signed Patient: Jaimee Guzman IMR#: [id number] 2030 : 9Acct:[id number] Age/Sex: 64 / FADM Date: 05/03/24 Loc: HO.US Attending Dr: Neyda Chacko MD Ordering Physician: Neyda Chacko MD Date of Service: 05/03/24 Procedure(s): US venous duplex LE BI Accession Number(s): [id number] cc: Neyda Chacko MD EXAMINATION: US LOWER [...] 05/03/24 1224 DD/ 1025 TD/TT: 05/03/24 1103 Public Welfare Worker: us Neyda Chacko MD CV VASCULAR PROCEDURES Final Res ult [facility] [address], [place] [phone] * US Abdomen Comp w elastography (05/03/2024 10:04 AM EDT) Anatomical Region Laterality Modality Abdomen Ultrasound 05/03/2024 10:0 4 AM EDT Narrative 05/03/2024 12:23 PM EDT ? [facility] ?[address] ?[place] [address] ? Ultrasound Report ? Signed ? Patient: Guzman,Jaimee I ?MR#: [id number] ?? 2030 ? : 1960 ?Acct:[id number] ? Age/Sex: 64 / F ?ADM Date: 03/12/25 ? Loc: HO.US ? Attending Dr: Neyda Chacko MD ? Ordering Physician: Neyda Chacko MD ?? Date of Service: 05/03/24 ?? Procedure(s): US abdomen comp w elastography ?? Accession Number(s): [id number] ? cc: Neyda Chacko MD ? EXAMINATION: [...] DD/ 1004 ? TD/TT: 05/03/24 1019 ? Public Welfare Worker: ? Procedure Note Donotuseinterpreter, Image - 05/03/2024 [place] [address] Ultrasound Report Signed Patient: Jaimee Guzman IMR#: [id number] 2030 : 9Acct:[id number] Age/Sex: 64 / FADM Date: 05/03/24 Loc: HO.US Attending Dr: Neyda Chacko MD Ordering Physician: Neyda Chacko MD Date of Service: 05/03/24 Procedure(s): US abdomen comp w elastography Accession Number(s): [id number] cc: Neyda Chacko MD EXAMINATION: US ABDOMEN COMPLETE WITH LIVER ELASTOGRAPHY HISTORY: MAS TECHNIQUE: Real-time grayscale ultrasound imaging of the [...] 05/03/24 1220 DD/ 1004 TD/TT: 05/03/24 1019 Public Welfare Worker: us Neyda Chacko MD [facility] US PROCEDURES Final Result * Hematoxylin and Eosin Stain (04/12/2024 10:44 AM EST) 04/12/2024 10:4 4 AM EST 04/12/2024 11:16 AM EST [facility] - 04/13/2024 4:09 PM EST ----- ------- Name: Jaimee Guzman I ? Age/Sex: 64/F ? : 1960 Unit#: [id number] ?? Attend Dr: Walter Moon MD ?Re04/12/24 ?Status: DEP REF ? Location: HO.MAMMO ?Disch: ? ----- ------- SPEC : [id number] ?RECD: 04/12/24 ? STATUS: ??SOUT ? REQ NUM: [id number] ? HUMBERTO: 04/12/24 ? SUBM DR: Nereyda [...] Copies To: ?? Walter Moon MD ?? [facility] Surgeons ?? [address] ?? [place] [address] ?? [phone] ?? Neyda Chacko MD ?? [facility] ?? [address] [facility] [facility] ?? [place] ?? [phone] ? CONTINUED ON NEXT PAGE ----- ------- Name: Jaimee Guzman I ? Age/Sex: 64/F ? : 1960 Unit#: [id number] ?? Attend Dr: Walter Moon MD ?Re04/12/24 ?Status: DEP REF ? Location: HO.MAMMO ?Disch: ? ----- ------- SPEC : [id number] ?RECD: 04/12/24 ? STATUS: ??SOUT ? REQ NUM: [id number] ? HUMBERTO: 04/12/24 ? SUBM DR: Nereyda Carvajal DO ? ENTERED: ??04/12/24 ?SP TYPE: Surgical ? OTHR DR: Walter Moon MD ?Neyda Chacko MD ORDERED: ??HE Stain/2, Gross Micro L4 ? COMMENTS: As per the specimen requisition slip the specimen is ?collected at 1044 and placed in formalin at 1052. Copies To: ??(Continued) ?? Nereyda Carvajal DO ?? [address] [facility] ?? [place] [address] ?? [phone] ----- ------- Signed (signature on file) Yash Moreno MD 04/13/24 1609 ? ----- ------- ? END OF REPORT ? us Generic External Data Provider LAB BLOOD ORDERAB LES Final Result Performing Organization Address City/State/[facility] Co de Phone Number [facility] [address] [place] [address] [phone] * BREAST NDL CORE BIOPSY RT (04/12/2024 10:00 AM EST) Anatomical Region Laterality Modality Abdomen Ultrasound 04/12/2024 10:0 0 AM EST Narrative 04/12/2024 12:13 PM EST ? [facility] [place] ? [address] ?[place] [address] ? Ultrasound Report ? Signed with Addenda ? Patient: Jaimee Guzman I ?MR#: [id number] ?? 2030 ? : 1960 ?Acct:[id number] ? Age/Sex: 64 / F ?ADM Date: 04/12/24 ? Loc: HO.MAMMO ? Attending Dr: Walter Moon MD ? Ordering Physician: Walter Moon MD ?? Date of Service: 04/12/24 ?? Procedure(s): US breast ndl core biopsy RT ?? Accession Number(s): [id number] ? cc: Walter Moon MD; Neyda Chacko [...] DD/ 1000 ? TD/TT: 04/12/24 1100 ? Public Welfare Worker: ? Procedure Note Donotuseinterpreter, Image - 04/19/2024 [facility] [address] [place], [place] [address] Ultrasound Report Signed with Esa Patient: Jaimee Guzman [facility]#: [id number] 2030 : 9Acct:[id number] Age/Sex: 64 / FADM Date: 04/12/24 Loc: HO.MAMMO Attending Dr: Walter Moon MD Ordering Physician: Walter Moon MD Date of Service: 04/12/24 Procedure(s): US breast ndl core biopsy RT Accession Number(s): [id number] cc: Walter Moon MD; Neyda Chacko MD; Ry Curtis MD ADDENDUM ADDENDUM #1 Right axillary subcutaneous mass: Fragments of benign squamous epithelium and keratinaceous material, consistent with epidermal inclusion cyst: No malignancy identified. Benign and concordant. Recommend clinical follow-up. Electronically signed by: Nereyda Carvajal DO 04/19/2024 10:05 AM [facility] Addendum Dictated By: Nereyda Carvajal DO Addendum [...] 04/12/24 1210 DD/ 1000 TD/TT: 04/12/24 1100 Public Welfare Worker: [facility] External Provider IMG US PROCEDURES [...] EST Narrative 03/15/2024 12:29 PM EST ? [facility] ? [address] ?[place] [address] ? Mammography Report ? Signed ? Patient: Guzman,Jaimee I ?MR#: [id number] ?? 2030 ? : 1960 ?Acct:[id number] ? Age/Sex: 63 / F ?ADM Date: 03/15/24 ? Loc: HO.MAMMO ? Attending Dr: Neyda Chacko MD ? Ordering Physician: Neyda Chacko MD ?Results: 4Suspicio ?? us Finding ? Date of Service: 03/15/24 ?Follow Up: Biopsy Recommend ?? ed ? Procedure(s): MM tomosynthesis diagnostic BI ?? Accession Number(s): [id number] ? cc: Neyda Chacko MD ? EXAMINATION: [...] DD/ 1115 ? TD/TT: 03/15/24 1140 ? Public Welfare Worker: ? Procedure Note [place], Image - 03/15/2024 [facility] [address] [place] [address] Mammography Report Signed Patient: Jaimee Guzman IMR#: [id number] 2030 : 9Acct:[id number] Age/Sex: 63 / FADM Date: 03/15/24 Loc: NATHALY Attending Dr: Neyda Chacko MD Ordering Physician: Neyda Chackoesults: 4Suspicio us Finding Date of Service: 03/15/24Follow Up: Biopsy Recommend ed Procedure(s): MM tomosynthesis diagnostic BI Accession Number(s): [id number] cc: Neyda Chacko MD EXAMINATION: MM DIAGNOSTIC [...] by: Nereyda Carvajal DO 03/15/2024 12:26 PM [facility] Dictated By: Nereyda Carvajal DO Signed By: <Electronically signed by Nereyda Carvajal DO in OV> 03/15/24 1226 DD/ 1115 TD/TT: 03/15/24 1140 Public Welfare Worker: Neyda Chacko MD IM BI PROCEDURES Final Result * Lipid Panel with Reflex to Direct LDL (12/15/2023 11:00 AM EDT) Triglycerides 45 <150 mg/dL [facility] Comment:Desirable Triglyceri de: less than 150 mg/dLBorderline High Triglyceride 150-199 mg/dLHigh Triglyceride: 200-499 mg/dLVery High Triglyceride: greater than or equal to 5OO mg/dL Cholesterol 113 <200 mg/dL [facility] Comment:Desirable Cholestero l: less than 200 mg/dLBorderline High Cholesterol: 200-239 mg/dLHigh Cholesterol: greater than 239 mg/dL LDL Cholesterol Calculated 51 <100 mg/dL [facility] Comment:Desirable LDL: less than 100 mg/dLNear Optimal/Above Optimal LDL: 110- 129 mg/dLBorderline High LDL: 130-159 mg/dLHigh LDL: 160-189 mg/dLVery High LDL: greater than or equal to 190 mg/dL HDL Cholesterol 53 >40 mg/dL [facility] Comment:Desirable HDL: great er than 40 mg/dL Note: This HDL assay may give artificially low results in patients with liver disease. Blood 12/15/2023 11:0 0 AM EDT 12/15/2023 1:24 PM EDT us Neyda Chacko MD LAB BLOOD ORDERABLES Final Resul t Performing Organization Address City/[facility] Co de Phone Number [facility] [address] [place] [phone] Albumin, Random Urine W/Creatinine (12/15/2023 11:00 AM EDT) Creatinine, Urine 75.29 mg/dL [facility] Microalbumin Urine 21.0 mg/L [facility] Microalbum Creatinine Ratio Ur 27.8 <30 ug/mg cr [facility] Comment:Albumin/Creatinine R atio Reference Ranges: Normal: < 30 ug/mg creatinine Microalbuminuria: 30 - 300 ug/mg creatinineClinical Albuminuria: > 300 ug/mg creatinine Urine 12/15/2023 11:0 0 AM EDT 12/15/2023 1:12 PM EDT us Neyda Chacko MD LAB URINE ORDERABLES Final Resul t Performing Organization Address City/[facility]/ZIP Co de Phone Number [facility] [address] [place] [phone] * Diabetes Eye Exam (12/25/2022) Eye Exam Normal Normal us Historical Provider MD HEALTH MAINTENANCE Final Result * Colonoscopy (08/15/2020) Colonoscopy Normal Normal us Historical Provider MD HEALTH MAINTENANCE Final Result * HPV E6/E7 RFLX LINDSAY 16 18/45 (12/27/2019 1:40 PM EST) HPV mRNA E6/E7 rflx Not Detected Not Detected [facility] Comment: This test was performed using the APTIMA HPV Assay ([employer] This assay detects E6/E7 viral messenger RNA (mRNA) from 14 high-risk HPV types (16,18,31,33,35,39,45,51,52,56,58,59,66,68). The analytical performance characteristics of this assay have been determined by [employer]. The modifications have not been cleared or approved by the FDA. This assay has been validated pursuant to the CLIA regulations and is used for clinical purposes. THIS TEST WAS PERFORMED AT: [facility] [address] [facility] [place], [place] ??[phone] RENE MULLINS MD 12/27/2019 1:40 PM EST Ry Curtis MD HISTORICAL/NON ORDERABLE LABS Fi nal Result [facility] [address] from Last 3 Months or Most Recently Relevant to Health Maintenance Insurance [facility] RESIDENTIAL OPTIONS (O D-SNP) [address] [place] [address] D[facility] [address] [place] [address] 4 [place] [address] Care Teams Manufacturing Team Leader Relationship Specialty Start Date End Date Neyda Chacko MD [address] [place] [address] PCP - General Family Medicine 02/22/18
--- OUTSIDE RECORDS SUMMARY | 2024-07-06 11:54 | XMS_ITS | Encounter Summary ---
Author Organization [employer] Address 75 [facility] 7t [place] [address] Care Team Providers Care Learning Strategist Name Role Phone Neyda Chacko MD Primary Care Provider [phone] Reason for Visit * Reason Onset Date Comments Appointment Request 02/19/2023 Encounter Details Date Type Department Care Team ([facility] st Contact Info) Description 02/19/2023 Telephone [facility] [address] [place], [place] [phone] Neyda Chacko MD [address] [place], [place] [phone] Appointment Request Social History Tobacco Use Types [...] daughter requesting to reschedule appt for 02/19 [employer] CDTM HTN *IP* documented in this encounter Plan of Treatment Upcoming Encounters Date Type Department Care Team (Late st Contact Info) Description 07/11/2024 1:15 PM EDT Office Visit [facility] [address] [place] [address] Neyda Chacko MD [address] [place] [address] documented as of this encounter Visit Diagnoses Not on filedocumented in this encounter Additional Health Concerns Assessment Noted Time PHQ-9 Depression Total Score: 5 03/12/19 23 10:44 AM EST documented as of this encounter Care Teams Learning Strategist Relationship Specialty Start Date End Date Neyda Chacko MD [address] [place] [address] PCP - General Family Medicine 02/22/18 documented as of this encounter
--- OUTSIDE RECORDS SUMMARY | 2024-07-06 11:54 | XMS_ITS | Encounter Summary ---
Author Organization [employer] Address [address] [facility] [place] [address] Care Team Providers Care Police Lieutenant Name Role Phone Neyda Chacko MD Primary Care Provider [phone] Encounter Details Date Type Department Care Team (Late st Contact Info) Description 12/16/2023 Orders Only [facility] 230 [place], [place] [phone] Neyda Chacko MD [address] [place], [place] [phone] Leukopenia, unspecified type (Primary Dx) Social History [...] Office Visit [facility] [address] [place] [phone] Neyda Chacko MD [address] [place] [address] documented as of this encounter Procedures Procedure Name Priority Date/Time Associated Diagnosis Comments PATHOLOGIST REVIEW - CBC Routine 12/17/2023 12:02 PM EDT Leukopenia, unspecified type CBC WITH AUTO DIFFERENTIAL Routine 12/17/2023 12:02 PM EDT Leukopenia, unspecified type documented in this encounter Results * Pathologist Review - CBC (12/17/2023 12:02 PM EDT) Pathologist Review - CBC SEE NOTE [facility] Comment:Peripheral blood joshua ments are normal appearing.- Yash Moreno M.D. Pathology Blood Venous blood specimen / Unknown 12/17/2023 12:02 PM EDT 12/17/2023 1:19 PM EDT us Neyda Chacko MD LAB BLOOD ORDERABLES Final Resul t [facility] [address] [place] [address] [phone] * (ABNORMAL) CBC auto differential (12/17/2023 12:02 PM EDT) White Blood Count 3.7(L) 4.8 - 10.8 X10*3/uL [facility] Red Blood Count 4.47 4.20 - 5.50 X10*6/uL [facility] Hemoglobin 13.0 12.0 - 16.0 g/dl [facility] Hematocrit 38.4 37.0 - 47.0 % [facility] Mean Corpuscular Volume 85.9 80.0 - 98.0 fL [facility] Mean Corpuscular Hemoglobin 29.1 27.0 - 33.0 pg [facility] Mean Corpuscular HGB Conc 33.9 31.0 - 35.0 g/dl [facility] Red Cell Distribution Width 11.9 11.0 - 16.0 % [facility] Platelet Count 209 160 - 400 X10*3/uL [facility] Mean Platelet Volume 9.7 9.4 - 12.3 fL [facility] Neutrophils Percent Auto 55.4 45 - 73 % [facility] Imm Gran Pct Auto 0.3 0.0 - 0.4 % [facility] Lymphocytes Percent Auto 33.4 20 - 40 % [facility] Monocytes Percent Auto 8.0 2 - 11 % [facility] Eosinophils Percent Auto 2.4 0 - 4 % [facility] Basophils Percent Auto 0.5 0 - 2 % [facility] NRBC Pct Auto 0.0 0.0 - 0.2 /100WBC [facility] Neutrophils Absolute Auto 2.1 2.0 - 8.3 x10*3/uL [facility] Imm Gran Abs Auto 0.01 0.00 - 0.03 X10*3/uL [facility] Lymphocytes Absolute Auto 1.3 1.2 - 4.9 X10*3/uL [facility] Monocytes Absolute Auto 0.3 0.1 - 1.2 X10*3/uL [facility] Eosinophils Absolute Auto 0.1 0.0 - 0.4 X10*3/uL [facility] Basophils Absolute Auto 0.0 0.0 - 0.2 X10*3/uL [facility] NRBC Abs Auto 0.000 0.0 - 0.012 X10*3/uL [facility] Blood Venous blood specimen / Unknown 12/17/2023 12:02 PM EDT 12/17/2023 1:19 PM EDT us Neyda Chacko MD LAB BLOOD ORDERABLES Final Resul t [facility] [address] [place] [address] [phone] documented in this encounter Visit Diagnoses Diagnosis Leukopenia, unspecified type- Primary documented in this encounter Additional Health Concerns Assessment Noted Time PHQ-9 Depression Total Score: 7 06/15/19 24 10:57 AM EDT documented as of this encounter Care Teams Police Lieutenant Relationship Specialty Start Date End Date Neyda Chacko MD [address] [place] [address] PCP - General Family Medicine 02/22/18 documented as of this encounter
--- OUTSIDE RECORDS SUMMARY | 2024-07-06 11:54 | XMS_ITS | Encounter Summary ---
Author Organization [employer] Address [address] [facility] [address] 7t [place] [address] Care Team Providers Care Leather Belt Shaper Name Role Phone Neyda Chacko MD Primary Care Provider [phone] Encounter Details Date Type Department Care Team (Late st Contact Info) Description 07/14/2023 Orders Only [facility] 230 [place], [place] [phone] Neyda Chacko MD [address] [place], [place] [phone] Social History Tobacco Use Types Packs/Day Years [...] 1:15 PM EDT Office Visit [facility] [address] [place] [phone] Neyda Chacko MD [address] [place] [address] documented as of this encounter Visit Diagnoses Not on filedocumented in this encounter Additional Health Concerns Assessment Noted Time PHQ-9 Depression Total Score: 7 06/15/19 24 10:57 AM EDT documented as of this encounter Care Teams Leather Belt Shaper Relationship Specialty Start Date End Date Neyda Chacko MD [address] [place] [address] PCP - General Family Medicine 02/22/18 documented as of this encounter
--- OUTSIDE RECORDS SUMMARY | 2024-07-06 11:54 | XMS_ITS | Encounter Summary ---
Author Organization [employer] Address 75 [facility] 7t [place] [address] Care Team Providers Care Life Insurance Agent Name Role Phone Neyda Chacko MD Primary Care Provider [phone] Encounter Details Date Type Department Care Team (Late st Contact Info) Description 01/26/2023 Orders Only [facility] 230 [place], [place] [phone] Neyda Chacko MD 230 [place], [place] [phone] Social History Tobacco Use Types Packs/Day Years Used Date Smoking Tobacco: Former Cigarettes Passive Smoke Exposure: Never Smokeless Tobacco: Never Depression Answer Date Recorded Patient Health Questionnaire-9 Score 5 03/12/2022 Housing Stability Answer Date Recorded What is your housing situation today? I have deandrelindsay gardiner 12/28/[address] you [...] Description 07/11/2024 1:15 PM EDT Office Visit [facility] [address] [place] [address] Neyda Chacko MD [address] [place] [address] documented as of this encounter Visit Diagnoses Not on filedocumented in this encounter Additional Health Concerns Assessment Noted Time PHQ-9 Depression Total Score: 5 03/12/19 23 10:44 AM EST documented as of this encounter Care Teams Life Insurance Agent Relationship Specialty Start Date End Date Neyda Chacko MD [address] [place] [address] PCP - General Family Medicine 02/22/18 documented as of this encounter
--- OUTSIDE RECORDS SUMMARY | 2024-07-06 11:54 | XMS_ITS | Encounter Summary ---
Author Organization [employer] Address 75 [facility] 7t [place] [address] Care Team Providers Care Field Examiner Name Role Phone Neyda Chacko MD Primary Care Provider [phone] Encounter Details Date Type Department Care Team (Late st Contact Info) Description 03/12/2022 Abstract [facility] 230 [place], [place] [phone] Neyda Chacko MD 230 [place], [place] [phone] Social History Tobacco Use Types Packs/Day Years [...] AM EST documented as of this encounter Functional Status * Over the past 2 weeks, how often have you been bothered by any of the following problems? Question Answer Date of Assessment Author Patient Health Questionnaire -2 Score 4 03/12/2022 10:44 AM Cely Herron [place] * Over the past 2 weeks, how often have you been bothered by any of the following problems? Question Answer Date of Assessment Author Little interest or pleasure in doing things More than half the days 03/12/2022 10:44 AM Mariel Herron [place] Feeling down, depressed, or hopeless More than half the days 03/12/2022 10:44 AM Mariel Herron [place] Trouble falling or staying asleep, or sleeping too much Not at all 03/12/2022 10:44 AM Mariel Herron [place] Feeling tired or having little energy Not at all 03/12/2022 10:44 AM Mariel Herron [place] Poor appetite or overeating Several days 03/12/2022 10:44 AM Mariel Herron [place] Feeling bad about yourself - or that you are a failure or have let yourself or your family down Not at all 03/12/2022 10:44 AM Mariel Herron [place] Trouble concentrating on things, such as reading the newspaper or watching television Not at all 03/12/2022 10:44 AM Mariel Herron MA Moving or speaking so slowly that other people could have noticed? Or the opposite - being so fidgety or restless that you have been moving around a lot more than usual. Not at all 03/12/2022 10:44 AM Mariel Herron MA Thoughts that you would be better off or hurting yourself in some way Not at all 03/12/2022 10:44 AM Mariel Herron MA Patient Health Questionnaire-9 Score 5 03/12/2022 10:44 AM Mariel Herron [place] documented as of this encounter Plan of Treatment Upcoming Encounters Date Type Department Care Team (Late st Contact Info) Description 07/11/2024 1:15 PM EDT Office Visit [facility] 230 [place] [address] Neyda Chacko MD [address] [place] [address] documented as of this encounter Visit Diagnoses Not on filedocumented in this encounter Additional Health Concerns Assessment Noted Time PHQ-9 Depression Total Score: 5 03/12/19 23 10:44 AM EST documented as of this encounter Care Teams Field Examiner Relationship Specialty Start Date End Date Neyda Chacko MD [address] [place] [address] PCP - General Family Medicine 02/22/18 documented as of this encounter
--- OUTSIDE RECORDS SUMMARY | 2024-07-06 11:54 | XMS_ITS | Encounter Summary ---
Author Organization [employer] [facility] Address 75 [facility] 7t [place] [address] Care Team Providers Care Clarification Operator Name Role Phone Neyda Chacko MD Primary Care Provider [phone] Encounter Details Date Type Department Care Team (Latest Contact Info) Description 05/21/2020 Abstract [facility] Dental, Provider, DDS Social History [...] Description 07/11/2024 1:15 PM EDT Office Visit [facility] 230 [place] [address] Neyda Chacko MD 230 [place] [address] documented as of this encounter Visit Diagnoses Not on filedocumented in this encounter Care Teams Clarification Operator Relationship Specialty Start Date End Date Neyda Chacko MD 230 [place] [address] PCP - General Family Medicine 02/22/18 documented as of this encounter
--- OUTSIDE RECORDS SUMMARY | 2024-07-06 11:54 | XMS_ITS | Encounter Summary ---
Author Organization [employer] Address 75 [facility] 7t [place] [address] Care Team Providers Care Line Lead Name Role Phone Neyda Chacko MD Primary Care Provider [phone] Reason for Referral * Consultation (Routine) - Authorized Specialty Diagnoses / Procedures Referred By Rob t Referred To Contact Orthopaedic Surgery Diagnoses Chronic right shoulder pain Neyda Chacko MD [address] [place] [address] Phone: tel: fax: [facility] [address] [place] [address] Phone: tel: Referral ID Status Reason Start Date Expiration Date Visits Requested Visits Authorized [id number] Authorized Specialty Services Required 05/20/2024 05/20/2025 1 1 * Consultation (Routine) - Closed Specialty Diagnoses / Procedures Referred By Contac t Referred To Contact Physical Therapy Diagnoses Chronic right shoulder pain Neyda Chacko MD [address] [place] [address] Phone: tel: fax: [facility] [address] [place] [address] Phone: tel: fax: Referral ID Status Reason Start Date Expiration Date V isits Requested Visits Authorized [id number] Closed Specialty Services Required 05/20/2024 05/20/2025 1 1 Encounter Details Date Type Department Care Team (Late st Contact Info) Description 05/20/2024 Orders Only [facility] [address] [place] [address] Neyda Chacko MD 230 [place] [address] Chronic right shoulder pain (Primary Dx) Social [...] Description 07/11/2024 1:15 PM EDT Office Visit [facility] [address] [place] [address] Neyda Chacko MD [address] [place] [address] Scheduled Orders Name Type Priority Associated Diagnoses [...] documented as of this encounter Care Teams Line Lead Relationship Specialty Start Date End Date Neyda Chacko MD [address] [place] [address] PCP - General Family Medicine 02/22/18 documented as of this encounter
--- OUTSIDE RECORDS SUMMARY | 2024-07-06 11:54 | XMS_ITS | Encounter Summary ---
Author Organization [employer] Address 75 [facility] 7t [place] [address] Care Team Providers Care Commercial Lines Account Assistant Name Role Phone Neyda Chacko MD Primary Care Provider [phone] Encounter Details Date Type Department Care Team ([facility] st Contact Info) Description 03/10/2022 Telephone [facility] MEDICINE 230 [place], [place] [phone] Neyda Chacko MD 230 [place], [place] [phone] Social History Tobacco Use Types Packs/Day Years [...] Questionnaire -2 Score 4 03/12/2022 10:44 AM EST Cely Aragon [place] * Over the past 2 weeks, [...] Description 07/11/2024 1:15 PM EDT Office Visit [facility] [address] [place] [address] Neyda Chacko MD [address] [place] [address] documented as of this encounter Visit Diagnoses Not on filedocumented in this encounter Care Teams Commercial Lines Account Assistant Relationship Specialty Start Date End Date Neyda Chacko MD [address] [place] [address] PCP - General Family Medicine 02/22/18 documented as of this encounter
--- OUTSIDE RECORDS SUMMARY | 2024-07-06 11:54 | XMS_ITS | Encounter Summary ---
Author Organization [facility] Address 75 [facility] 7t [place] [address] Care Team Providers Care Washing Machine Operator Name Role Phone Neyda Chacko MD Primary Care Provider [phone] Encounter Details Date Type Department Care Team (Latest Contact Info) Description 01/03/2019 Abstract [facility] Dental, Provider, DDS Social History [...] Description 07/11/2024 1:15 PM EDT Office Visit [facility] [address] [place] [address] Neyda Chacko MD [address] [place] [address] documented as of this encounter Visit Diagnoses Not on filedocumented in this encounter Care Teams Washing Machine Operator Relationship Specialty Start Date End Date Neyda Chacko MD [address] [place] [address] PCP - General Family Medicine 02/22/18 documented as of this encounter
--- OUTSIDE RECORDS SUMMARY | 2024-07-06 11:54 | XMS_ITS | Clinical Summary ---
Author Organization [address] [facility] Address [address] [place] [address] Phone Care Team Providers Care Blood Donor Recruiter Name Role Phone Physician, Pcp Unknown Primary Care Provider Heena vailable Allergies No known active allergies Social History [...] age to complete this topic Insurance , [address] [address] [facility] LONGTERM OPTIONS Member Subscriber Plan / Payer (Ef fective 2024-Present) Name:Jaimee Guzman I Relation to Subscriber:Self Name:Jaimee Guzman I Payer ID:[id number] Group ID:Not on file Type:Not on file Address: [address] [address] Care Teams Blood Donor Recruiter Relationship Specialty Start Date End Date Physician, Pcp Unknown PCP - General 03/20/24
--- OUTSIDE RECORDS SUMMARY | 2024-07-06 11:54 | XMS_ITS | Encounter Summary ---
Author Organization [employer] Address 75 [facility] 7t [place] [address] Care Team Providers Care Assistant Store Manager Sales Name Role Phone Neyda Chacko MD Primary Care Provider [phone] Reason for Visit * Reason Comments Med Refill Encounter Details Date Type Department Care Team (Late st Contact Info) Description 01/28/2022 Refill [facility] [address] [place] [address] [facility] [address] [place] [address] Type 2 diabetes mellitus with hyperglycemia (CMS/HCC) [...] 07/11/2024 1:15 PM EDT Office Visit [facility] [address] [place] [address] [phone] Neyda Chacko MD [address] [place] [address] documented as of this encounter Visit Diagnoses Diagnosis Type 2 diabetes mellitus with hyperglycemia (CMS/HCC) documented in this encounter Care Teams Assistant Store Manager Sales Relationship Specialty Start Date End Date Neyda Chacko MD [address] [place] [address] PCP - General Family Medicine 02/22/18 documented as of this encounter
--- OUTSIDE RECORDS SUMMARY | 2024-07-06 11:54 | XMS_ITS | Encounter Summary ---
Author Organization [employer] Address 75 [facility] 7t [place] [address] Care Team Providers Care Electronic Communications Technician Name Role Phone Neyda Chacko MD Primary Care Provider [phone] Reason for Visit * Reason Onset Date Comments Durable Medical Equipment 01/26/2023 Encounter Details Date Type Department Care Team ([facility] st Contact Info) Description 01/26/2023 Telephone [facility] MED[facility]INE 230 [place], [place] [phone] Neyda Chacko MD 230 [place], [place] [phone] Durable Medical Equipment Social History Tobacco Use [...] readings would like the patient to use [employer] System documented in this encounter Plan of Treatment Upcoming Encounters Date Type Department Care Team (Late st Contact Info) Description 07/11/2024 1:15 PM EDT Office Visit [facility] [address] [place] [address] Neyda Chacko MD [address] [place] [address] documented as of this encounter Visit Diagnoses Not on filedocumented in this encounter Additional Health Concerns Assessment Noted Time PHQ-9 Depression Total Score: 5 03/12/19 23 10:44 AM EST documented as of this encounter Care Teams Electronic Communications Technician Relationship Specialty Start Date End Date Neyda Chacko MD 230 [place] [address] PCP - General Family Medicine 02/22/18 documented as of this encounter
--- OUTSIDE RECORDS SUMMARY | 2024-07-06 11:55 | XMS_ITS | Encounter Summary ---
Author Organization [employer] Address [address] [facility] 7[address] [place] [address] Care Team Providers Care Satellite Communications Operator Name Role Phone Neyda Chacko MD Primary Care Provider [phone] Encounter Details Date Type Department Care Team (Late st Contact Info) Description 09/09/2023 Orders Only [facility] [address] [place], [place] [phone] Neyda Chacko MD [address] [place], [place] [phone] Essential hypertension (Primary Dx); Type 2 diabetes mellitus with hyperglycemia, with long-term current use of insulin ([facility]); Dyslipidemia; Weight loss Social History Tobacco Use [...] Description 07/11/2024 1:15 PM EDT Office Visit [facility] [address] [place] [address] Neyda Chacko MD [address] [place] [address] documented as of this encounter Procedures Procedure Name Priority Date/Time Associated Diagnosis Comments VITAMIN B12/FOLATE, SERUM PANEL Routine 12/15/2023 11:00 AM EDT Type 2 diabetes mellitus with hyperglycemia, with long-term current use of insulin ([facility]/HCC) TSH W/REFLEX TO FT4 Routine 12/15/2023 1 1:00 AM EDT Weight loss LIPID PANEL WITH REFLEX TO DIRECT LDL Routine 12/15/2023 11:00 AM EDT Type 2 diabetes mellitus with hyperglycemia, with long-term current use of insulin (CMS/HCC) Dyslipidemia ALBUMIN, RANDOM URINE W/CREATININE Routine 12/15/2023 [...] Blood Count 2.5(L) 4.8 - 10.8 X10*3/uL [facility] Red Blood Count 4.42 4.20 - 5.50 X10*6/uL [facility] Hemoglobin 12.7 12.0 - 16.0 g/dl [facility] Hematocrit 38.9 37.0 - 47.0 % [facility] Mean Corpuscular Volume 88.0 80.0 - 98.0 fL [facility] Mean Corpuscular Hemoglobin 28.7 27.0 - 33.0 pg [facility] Mean Corpuscular HGB Conc 32.6 31.0 - 35.0 g/dl [facility] Red Cell Distribution Width 12.0 11.0 - 16.0 % [facility] Platelet Count 180 160 - 400 X10*3/uL [facility] Mean Platelet Volume 9.8 9.4 - 12.3 fL [facility] Neutrophils Percent Auto 36.6(L) 45 - 73 % [facility] Imm Gran Pct Auto 0.4 0.0 - 0.4 % [facility] Lymphocytes Percent Auto 49.8(H) 20 - 40 % [facility] Monocytes Percent Auto 8.8 2 - 11 % [facility] Eosinophils Percent Auto 3.6 0 - 4 % [facility] Basophils Percent Auto 0.8 0 - 2 % [facility] NRBC Pct Auto 0.0 0.0 - 0.2 /100WBC [facility] Neutrophils Absolute Auto 0.9(L) 2.0 - 8.3 x10*3/uL [facility] Imm Gran Abs Auto 0.01 0.00 - 0.03 X10*3/uL [facility] Lymphocytes Absolute Auto 1.3 1.2 - 4.9 X10*3/uL [facility] Monocytes Absolute Auto 0.2 0.1 - 1.2 X10*3/uL [facility] Eosinophils Absolute Auto 0.1 0.0 - 0.4 X10*3/uL [facility] Basophils Absolute Auto 0.0 0.0 - 0.2 X10*3/uL [facility] NRBC Abs Auto 0.000 0.0 - 0.012 X10*3/uL [facility] Blood Venous blood specimen / Unknown 12/15/2023 11:00 AM EDT 12/15/2023 1:24 PM EDT Neyda Chacko MD LAB BLOOD ORDERABLES Edited Resu lt - Final Performing Organization Address [facility] Co de Phone Number [facility] [address] [place] [phone] * TSH with Reflex to Free T4 (12/15/2023 11:00 AM EDT) TSH reflex Free T4 2.91 0.32 - 4.0 uIU/mL [facility] Blood 12/15/2023 11:0 0 AM EDT 12/15/2023 1:24 PM EDT Neyda Chacko MD LAB BLOOD ORDERABLES Final Resul t Performing Organization Address [facility] de Phone Number [facility] [address] [place] [phone] * (ABNORMAL) Comprehensive Metabolic Panel (12/15/2023 11:00 AM EDT) Sodium 142 135 - 145 mmol/L [facility] Potassium 4.0 3.3 - 5.1 mmol/L [facility] Chloride 107 96 - 108 mmol/L [facility] Carbon Dioxide 30(H) 22 - 29 mmol/L [facility] Anion Gap 9(L) 12 - 20 [facility] Urea Nitrogen (BUN) 18(H) 9 - 16 mg/dL [facility] Creatinine, Serum 0.68 0.5 - 1.4 mg/dL [facility] Estimated Glomerular Filt Rate >60 [facility] Comment:NOTE: For -Am erican individuals, multiply the result by 1.210.Chronic Kidney Disease: Estimated GFR < 60 mL/min/1.70h8Izujmd Kidney Disease: Estimated GFR < 15 mL/min/1.73m2 Glucose 161(H) 60 - 115 mg/dL [facility] Calcium 9.5 8.4 - 10.2 mg/dL [facility] Bilirubin, Total 0.2 0.0 - 1.0 mg/dL [facility] Aspartate Amino Transferase 34(H) 5 - 31 U/L [facility] Alanine Aminotransferase 49(H) 0 - 31 U/L [facility] Total Protein 6.9 6.5 - 8.0 g/dL [facility] Albumin Level 3.9 3.5 - 5.0 g/dL [facility] Alkaline Phosphatase 59 39 - 117 U/L [facility] Blood Venous blood specimen / Unknown 12/15/2023 11:00 AM EDT 12/15/2023 1:24 PM EDT us Neyda Chacko MD LAB BLOOD ORDERABLES Final Resul t [facility] [address] [place] [phone] * Albumin, Random Urine W/Creatinine (12/15/2023 11:00 AM EDT) Creatinine, Urine 75.29 mg/dL [facility] Microalbumin Urine 21.0 mg/L [facility] Microalbum Creatinine Ratio Ur 27.8 <30 ug/mg cr [facility] Comment:Albumin/Creatinine R atio Reference Ranges: Normal: < 30 ug/mg creatinine Microalbuminuria: 30 - 300 ug/mg creatinineClinical Albuminuria: > 300 ug/mg creatinine Urine 12/15/2023 11:0 0 AM EDT 12/15/2023 1:12 PM EDT Neyda Chacko MD LAB URINE ORDERABLES Final Resul t Performing Organization Address [facility] Co de Phone Number [facility] [address] [place] [phone] * Lipid Panel with Reflex to Direct LDL (12/15/2023 11:00 AM EDT) Triglycerides 45 <150 mg/dL [facility] Comment:Desirable Triglyceri de: less than 150 mg/dLBorderline High Triglyceride 150-199 mg/dLHigh Triglyceride: 200-499 mg/dLVery High Triglyceride: greater than or equal to 5OO mg/dL Cholesterol 113 <200 mg/dL [facility] Comment:Desirable Cholestero l: less than 200 mg/dLBorderline High Cholesterol: 200-239 mg/dLHigh Cholesterol: greater than 239 mg/dL LDL Cholesterol Calculated 51 <100 mg/dL [facility] Comment:Desirable LDL: less than 100 mg/dLNear Optimal/Above Optimal LDL: 110- 129 mg/dLBorderline High LDL: 130-159 mg/dLHigh LDL: 160-189 mg/dLVery High LDL: greater than or equal to 190 mg/dL HDL Cholesterol 53 >40 mg/dL [facility] Comment:Desirable HDL: great er than 40 mg/dL Note: This HDL assay may give artificially low results in patients with liver disease. Blood 12/15/2023 11:0 0 AM EDT 12/15/2023 1:24 PM EDT Neyda Chacko MD LAB BLOOD ORDERABLES Final Resul t Performing Organization Address [facility]/ZIP Co de Phone Number [facility] [address] [place] [phone] * Vitamin B12 (Cobalamin) and Folate Panel, Serum (12/15/2023 11:00 AM EDT) Vitamin B12 402 200 - 900 pg/mL [facility] Comment:NORMAL 200-900 PG/ML INDETERMINATE 160-199 PG/ML DEFICIENT < 160 PG/ML Folate 12.9 > or = 4.0 ng/mL [facility] Comment:Reference Values:> o r = 4.0 ng/mL< 4.0 ng/mL suggests folate deficiency Methotrexate, aminopterin and folinic acid(leucovorin) are chemotherapeutic agents whose molecularstructures are similar to folate; therefore, the Architectfolate assay cannot be used for patients using these drugs. Blood 12/15/2023 11:0 0 AM EDT 12/15/2023 1:24 PM EDT us Neyda Chacko MD LAB BLOOD ORDERABLES Final Resul t [facility] [address] [place] [phone] documented in this encounter Visit Diagnoses Diagnosis Essential hypertension- Primary Unspecified essential hypertension Type 2 diabetes mellitus with hyperglycemia, with long-term current use of insulin ([facility]) Dyslipidemia Other and unspecified hyperlipidemia Weight loss Loss of weight documented in this encounter Additional Health Concerns Assessment Noted Time PHQ-9 Depression Total Score: 7 06/15/19 24 10:57 AM EDT documented as of this encounter Care Teams Satellite Communications Operator Relationship Specialty Start Date End Date Neyda Chacko MD [address] [place] [phone] PCP - General Family Medicine 02/22/18 documented as of this encounter
--- OUTSIDE RECORDS SUMMARY | 2024-07-06 11:55 | XMS_ITS | Encounter Summary ---
Author Organization [email or web address] Address [address] [facility] 7t [place] [address] Care Team Providers Care Irrigator Overhead Name Role Phone Neyda Chacko MD Primary Care Provider [phone] Encounter Details Date Type Department Care Team (Late st Contact Info) Description 11/02/2023 Orders Only [facility] [address] [place], [place] [phone] Neyda Chacko MD [address] [place], [place] [phone] Type 2 diabetes mellitus with hyperglycemia, with long-term current use of insulin ([facility]) Social History Tobacco Use Types [...] Description 07/11/2024 1:15 PM EDT Office Visit [facility] [address] [place] [address] Neyda Chacko MD [address] [place] [phone] documented as of this encounter Visit Diagnoses Diagnosis Type 2 diabetes mellitus with hyperglycemia, with long-term current use of insulin ([facility]) documented in this encounter Additional Health Concerns Assessment Noted Time PHQ-9 Depression Total Score: 7 06/15/19 24 10:57 AM EDT documented as of this encounter Care Teams Irrigator Overhead Relationship Specialty Start Date End Date Neyda Chacko MD [address] [place] [phone] PCP - General Family Medicine 02/22/18 documented as of this encounter
--- OUTSIDE RECORDS SUMMARY | 2024-07-06 11:55 | XMS_ITS | Encounter Summary ---
Author Organization [employer] Address [address] [place] [address] Care Team Providers Care Real Estate Leasing Agent Name Role Phone Neyda Chacko MD Primary Care Provider [phone] Encounter Details Date Type Department Care Team ([facility] st Contact Info) Description 06/21/2024 Orders Only [facility] [address] [place] [address] Kat Camarena MD [address] [place] [address] Social History Tobacco Use Types Packs/Day Years [...] 1:15 PM EDT Office Visit [facility] [address] [place] [phone] Neyda Chacok MD [address] [place] [address] documented as of this encounter Visit Diagnoses Not on filedocumented in this encounter Additional Health Concerns Assessment Noted Time PHQ-9 Depression Total Score: 7 06/15/19 24 10:57 AM EDT documented as of this encounter Care Teams Real Estate Leasing Agent Relationship Specialty Start Date End Date Neyda Chakco MD [address] [place] [phone] PCP - General Family Medicine 02/22/18 documented as of this encounter
--- OUTSIDE RECORDS SUMMARY | 2024-07-06 11:55 | XMS_ITS | Encounter Summary ---
Author Organization [employer] Address [address] [facility] [address]t [place] [address] Care Team Providers Care Merchandise Marker Name Role Phone Neyda Chacko MD Primary Care Provider [phone] Reason for Visit * Reason Onset Date Comments Med Refill 09/03/2022 Encounter Details Date Type Department Care Team ([facility] st Contact Info) Description 09/03/2022 Telephone [facility] [address] [place], [place] [phone] Neyda Chacko MD [address] [place], [place] [phone] Med Refill Social History Tobacco Use Types [...] 07/11/2024 1:15 PM EDT Office Visit [facility] [address] [place] [address] Neyda Chacko MD [address] [place] [address] documented as of this encounter Visit Diagnoses Not on filedocumented in this encounter Additional Health Concerns Assessment Noted Time PHQ-9 Depression Total Score: 5 03/12/19 23 10:44 AM EST documented as of this encounter Care Teams Merchandise Marker Relationship Specialty Start Date End Date Neyda hCacko MD [address] [place] [phone] PCP - General Family Medicine 02/22/18 documented as of this encounter
--- OUTSIDE RECORDS SUMMARY | 2024-07-06 11:55 | XMS_ITS | Encounter Summary ---
Author Organization [employer] Address [address] [facility] [address] [place] [address] Care Team Providers Care Material Mixer Name Role Phone Neyda Chacko MD Primary Care Provider [phone] Reason for Visit * Reason Onset Date Comments Med Refill 10/27/2023 Encounter Details Date Type Department Care Team ([facility] st Contact Info) Description 10/27/2023 Telephone [facility] [address] [place], [place] [phone] Neyda Chacko MD [address] [place], [place] [phone] Med Refill Social History Tobacco Use Types [...] is your housing situation today? I have edandre gardiner 06/15/[address] you [...] MG/3ML solution pen-injector To be sent to: [facility] - [place], [place] - [address] [place] [address] documented in this encounter Plan of Treatment Upcoming Encounters Date Type Department Care Team (Late st Contact Info) Description 07/11/2024 1:15 PM EDT Office Visit [facility] [address] [place] [address] Neyda Chacko MD [address] [place] [address] documented as of this encounter Visit Diagnoses Not on filedocumented in this encounter Additional Health Concerns Assessment Noted Time PHQ-9 Depression Total Score: 7 06/15/19 24 10:57 AM EDT documented as of this encounter Care Teams Material Mixer Relationship Specialty Start Date End Date Neyda Chacko MD [address] [place] [phone] PCP - General Family Medicine 02/22/18 documented as of this encounter
== END 2024-07-06 11:27 | disposition home or self-care (01) ==
LOC: HO.HOS 10:47
PROVIDERS: Visit Provider Physician Assistant
DX: E11.9 Type 2 diabetes mellitus without complications (principal); M75.101 Unspecified rotator cuff tear or rupture of right shoulder, not specified as traumatic
CPT/HCPCS: 20610; 99204

== ENCOUNTER → 2024-07-06 10:47 | Outpatient (BNVA) | payer OTHER, SELFPAY | PROVIDERS: Visit Provider Physician Assistant | DX: M75.101 Unspecified rotator cuff tear or rupture of right shoulder, not specified as traumatic (principal); E11.9 Type 2 diabetes mellitus without complications | CPT/HCPCS: 20610; 99202; J1010; J2003 ==

== ENCOUNTER 2024-08-11 10:58 | Outpatient (AMB) | payer OTHER, SELFPAY ==
--- NOTE | 2024-08-11 10:59 | A.OFFVIS_ITS ---
Vital Signs 08/11/24 11:10 Height 5 ft 2 in Weight 152 lb BMI 27.8 BP 110/62 Blood Pressure Location Rt brachial Position Sitting Pulse 82 Pulse Source Pulse Oximeter Pulse Oximetry (%) 95 Oxygen Delivery Method Room Air Intake Visit Reasons: cologuard Intake Note: Est pt for mgmt of GERD + review cologuard results. Uploaded pdf to chart. CC; Pt denies any GI sx or concerns at this time. Confirms that Rx are controlling sx effectively Weld Lay Out Worker Required: Yes Weld Lay Out Worker Services: Weld Lay Out Worker Offered & Declined Accompanied by: Daughter Allergies pioglitazone (From Actos) Allergy (Mild, Verified 08/11/24 10:59) EDEMA, unknown HPI HPI cologuard: Details: Assessment & Plan (1) Gastroparesis: Code(s): K31.84 - Gastroparesis Category: Medical (2) GERD (gastroesophageal reflux disease): Code(s): K21.9 - Gastro-esophageal reflux disease without esophagitis Category: Medical (3) Irritable bowel syndrome with both constipation and diarrhea: Code(s): K58.2 - Mixed irritable bowel syndrome Category: Medical (4) Cystocele with uterine prolapse: Comment: Moderate uterine prolapse Central and right paravaginal cystocele Code(s): N81.4 - Uterovaginal prolapse, unspecified Category: Medical Plan GHANAIAN #dtr translates per pt request She continues on her carafate, pantoprazole bid, senna and reglan. I notice that she is quite overdue for a colonoscopy, unless she had one at another institution since 2009. She denies this. We discuss colonoscopy and also I show them the Cologuard video, as she did not have polyps and there is no known FHX of crc or polyps She opts for COloguard. She still has some breakthrough of HB and some reflux, and I advie using TUMS. Given her multiple complicating factors including gastroparesis and Ozempic use I think she needs to consider more dietary triggers etc. ROV 8 - 10 weeks. Medications: Refilled metoclopramide HCl 10 mg PO QIDACHS 120 tabs 6RF K31.84 - Gastroparesis pantoprazole 40 mg PO BID 180 tabs 2RF K21.9 - Gastro-esophageal reflux disease without esophagitis, K29.70 - Gastritis, unspecified, without bleeding sucralfate (Carafate) 20 mL PO DAILY 420 mL 3RF K29.70 - Gastritis, unspecified, without bleeding, R11.2 - Nausea with vomiting, unspecified TODAY'S VISIT [place]e #daughter translates per patient request She continues on her carafate, pantoprazole bid, senna and reglan. She continues to do well on this GI regimen. The colooguard was negative. ROV 6 mos. [facility] Medical History Colon cancer screening Upper abdominal pain Nausea and vomiting Diarrhea senior living current use of insulin Obesity with body mass index of 30.0-39.9 Hypoglycemia associated with type 2 diabetes mellitus Diabetes type 2, uncontrolled Heart murmur COVID-19 vaccine administered Diabetic neuropathy associated with type 2 diabetes mellitus Background diabetic retinopathy associated with type 2 diabetes mellitus PATRICIA (obstructive sleep apnea) Hemorrhoids Asthma Type 2 diabetes mellitus with mild nonproliferative diabetic retinopathy without macular edema, bilateral Type 2 diabetes mellitus with hyperglycemia, with long-term current use of insulin Essential hypertension Dyslipidemia Menometrorrhagia Polypharmacy Depression Allergic rhinitis Venous insufficiency Anemia Obesity Constipation HTN (hypertension) Surgical History History of esophagogastroduodenoscopy (EGD) Hx of colonoscopy History of bilateral tubal ligation Family History Father No problems noted. Mother Heart disease HTN (hypertension) Diabetes Pacemaker Depression Family/Other Diabetes Daughter Cancer Social History Household Members: None Are you a primary child care leader to a significant other at home: No Do you presently have visiting nurse or other home services: No Alcohol intake: never Patient Tobacco Use Status: Never used Tobacco Sexual orientation: Straight/Heterosexual Gender identity: Female Female Reproductive History Menstrual Age of Menarche: 10 Review of Systems Const Denies fatigue, Denies fever(s), Denies night sweats, Denies poor appetite and Denies weight loss Eyes Details: glasses Reports requires corrective lenses ENT Reports Normal hearing present, Denies dental pain, Denies dysphagia, Denies hearing loss, Denies mouth pain, Denies odynophagia, Denies throat swelling, Denies tongue swelling and Reports other (Dentition adequate) Card Reports no additional complaints Resp Reports no additional complaints GI Details: Denies abdominal pain, Denies melena, Denies bloating, Denies hematochezia, Reports constipation, Denies GI cramping, Denies dysphagia, Denies excessive flatus, Denies early satiety, Reports heartburn, Denies diarrhea, Reports nausea, Denies odynophagia, Denies vomiting and Denies hematemesis Skin/Breast Denies pruritus, Denies lesions, Denies rash and Denies jaundice Neuro Reports Normal hearing present and Denies Abnormal speech present Endo Denies fatigue Aller/Immun Denies throat swelling and Denies tongue swelling Physical Exam Vital Signs: Last Vital Signs Pulse 82 08/11/24 11:10 BP 110/62 08/11/24 11:10 Pulse Ox 95 08/11/24 11:10 Oxygen Delivery Method Room Air 08/11/24 11:10 BMI result Body Mass Index 27.8 Const General: cooperative, no acute distress, well developed and well groomed Nutritional Appearance: well nourished Orientation/consciousness: oriented to person, oriented to place and oriented to time Limitations: language barrier HEENT Head: Yes normocephalic and Yes atraumatic Eyes General: appearance normal, both eyes and all related structures Pupils: Equal, round and reactive pupils present Neck Neck: Yes normal visual inspection and Yes no lymphadenopathy Thyroid: Thyroid normal Resp Effort & Inspection: normal respiratory effort and able to speak in complete sentences Auscultation: clear to auscultation bilaterally Cardio Rate: regular rate Rhythm: regular rhythm Heart sounds: Normal, physiologic split S2 sound present Peripheral pulses: radial pulses present and posterior tibial pulses present GI Inspection: No distended and No Abdominal panniculus present Palpation (GI): Soft to palpation, nontender, no guarding, not rigid and No hepatosplenomegaly present Percussion: Yes normal to percussion Auscultation: normal bowel sounds Rectal Exam - Female: deferred Skin General skin exam: no rashes or lesions noted, turgor normal, skin not dry, no jaundice, No spider nevi and no striae Rashes: no rashes Nails: normal Neuro General: oriented to person, oriented to place and oriented to time Cranial nerves: Yes Equal, round and reactive pupils present and Yes Normal hear ing present Speech: No Abnormal speech present Extrem General: Yes normal to inspection, No clubbing, No cyanosis and No edema Psych Appearance: grossly normal and well kempt Mental Status: mental status grossly normal Speech and movement: Normal speech and movement present Affect: normal affect Attitude: cooperative Thought process: Normal thought process present and not confabulating Thought content: Normal thought content present Insight: Limited insight present (Psych) Judgement: Limited judgement present (Psych) Assessment & Plan Assessment & Plan (1) Gastroparesis: Code(s): K31.84 - Gastroparesis Category: Medical (2) GERD (gastroesophageal reflux disease): Code(s): K21.9 - Gastro-esophageal reflux disease without esophagitis Category: Medical (3) Irritable bowel syndrome with both constipation and diarrhea: Code(s): K58.2 - Mixed irritable bowel syndrome Category: Medical (4) Encounter for colorectal cancer screening using Cologuard test: Comment: 06/2024 negative Cologuard repeat in 3 years Code(s): Z12.11 - Encounter for screening for malignant neoplasm of colon; Z12.12 - Encounter for screening for malignant neoplasm of rectum Category: Medical Plan [place]e #daughter translates per patient request She continues on her carafate, pantoprazole bid, senna and reglan. She continues to do well on this GI regimen. The colooguard was negative. ROV 6 mos. Medications: Refilled metoclopramide HCl 10 mg PO QIDACHS 120 tabs 6RF K31.84 - Gastroparesis pantoprazole 40 mg PO BID 180 tabs 2RF K21.9 - Gastro-esophageal reflux disease without esophagitis, K29.70 - Gastritis, unspecified, without bleeding sennosides (senna) 17.2 mg (2 x 8.6 mg) PO BEDTIME PRN 180 tabs 0RF for constipation lancets (FreeStyle Lancets) 3 times a day 300 ea 2RF E11.9 - Type 2 diabetes mellitus without complications Coding Level of Care Code Est Pt Level 3 (50312) Diagnoses Gastroparesis K31.84 GERD (gastroesophageal reflux disease) K21.9 Irritable bowel syndrome with both constipation and diarrhea K58.2 Encounter for colorectal cancer screening using Cologuard test Z12.11; Z12.12
[2024-08-11 11:10] VITALS: BP 110/62; PULSE 82; O2SAT 95; BMI 27.8
--- OUTSIDE RECORDS SUMMARY | 2024-08-11 11:24 | XMS_ITS | Encounter Summary ---
Author Organization [facility] Address [address] 7t [place] [address] Care Team Providers Care Voice Instructor Name Role Phone Neyda Chacko MD Primary Care Provider [phone] Encounter Details Date Type Department Care Team (Latest Contact Info) Description 01/03/2019 Abstract [facility] CONVERSIONS Dental, Provider, DDS Social History [...] Care Team (Late st Contact Info) Description 08/29/2024 10:30 AM EDT Office Visit [facility] [address] [place] [address] Neyda Chacko MD [address] [place] [address] documented as of this encounter Visit Diagnoses Not on filedocumented in this encounter Care Teams Voice Instructor Relationship Specialty Start Date End Date Neyda Chacko MD [address] [place] [address] PCP - General Family Medicine 02/22/18 documented as of this encounter
== END 2024-08-11 11:18 | disposition home or self-care (01) ==
LOC: HO.HGI 10:58
PROVIDERS: PCP Family Medicine; Visit Provider Nurse Practitioner
DX: K21.9 Gastro-esophageal reflux disease without esophagitis (principal); K31.84 Gastroparesis; K58.2 Mixed irritable bowel syndrome
CPT/HCPCS: 99213

== ENCOUNTER → 2024-08-11 10:58 | Outpatient (BNVA) | payer OTHER, SELFPAY | PROVIDERS: PCP Family Medicine; Visit Provider Nurse Practitioner | DX: K21.9 Gastro-esophageal reflux disease without esophagitis (principal); K31.84 Gastroparesis; K58.2 Mixed irritable bowel syndrome; N81.4 Uterovaginal prolapse, unspecified; Z12.11 Encounter for screening for malignant neoplasm of colon; Z12.12 Encounter for screening for malignant neoplasm of rectum | CPT/HCPCS: 99212 ==

== ENCOUNTER 2025-01-04 10:56 | Outpatient (AMB) | payer OTHER, SELFPAY ==
--- NOTE | 2025-01-04 11:09 | A.OFFVIS_ITS ---
Intake Visit Reasons: OV-Chronic Right Shoulder pain Intake Note: Jaimee is a 64 year old right hand dominant female who presents today with her daughter for a follow up of her right shoulder pain, last injection 07/06/24. Patient reports states that her pain is not better from getting injection. Her grand son express that it helped relief some pain but she wasn't able to use her arm. He did express that her sugars became very high and they contacted the PCP. Accompanied by: Grand Child Allergies pioglitazone (From Actos) Allergy (Mild, Verified 01/04/25 11:16) EDEMA, unknown HPI HPI OV-Chronic Right Shoulder pain: Details: Ms. Guzman is a 64-year-old right-hand dominant female who presents to the office today accompanied by her grandson for evaluation of chronic right shoulder pain and difficulty with range of motion. The grandson states that she was trying to move a stove roughly 1 years ago when the 1st injury occurred to her right shoulder. Additionally she had another incident where she fell landing on an outstretched arm and then directly onto the right shoulder. She has been attending physical therapy but has recently stopped due to extreme pain. At her last appointment on 07/06/2024 the patient had a cortisone injection which gave her some relief. [facility] Medical History Colon cancer screening Upper abdominal pain Nausea and vomiting Diarrhea intermediate current use of insulin Obesity with body mass index of 30.0-39.9 Hypoglycemia associated with type 2 diabetes mellitus Diabetes type 2, uncontrolled Heart murmur COVID-19 vaccine administered Diabetic neuropathy associated with type 2 diabetes mellitus Background diabetic retinopathy associated with type 2 diabetes mellitus PATRICIA (obstructive sleep apnea) Hemorrhoids Asthma Type 2 diabetes mellitus with mild nonproliferative diabetic retinopathy without macular edema, bilateral Type 2 diabetes mellitus with hyperglycemia, with long-term current use of insulin Essential hypertension Dyslipidemia Menometrorrhagia Polypharmacy Depression Allergic rhinitis Venous insufficiency Anemia Obesity Constipation HTN (hypertension) Surgical History History of esophagogastroduodenoscopy (EGD) Hx of colonoscopy History of bilateral tubal ligation Family History Father No problems noted. Mother Heart disease HTN (hypertension) Diabetes Pacemaker Depression Family/Other Diabetes Daughter Cancer Social History Household Members: None Are you a primary inspector health care facilities to a significant other at home: No Do you presently have visiting nurse or other home services: No Alcohol intake: never Patient Tobacco Use Status: Never used Tobacco Sexual orientation: Straight/Heterosexual Gender identity: Female Female Reproductive History Menstrual Age of Menarche: 10 Review of Systems Const All systems reviewed & are unremarkable except as noted in HPI and below Physical Exam Const General: cooperative, healthy appearing and no acute distress Resp Effort & Inspection: normal respiratory effort and able to speak in complete sentences Extrem Other: Right shoulder: Forward flexion and abduction to 90 degrees. External rotation to neutral. Pain with cross-body reach. 3/5 strength with empty can. Negative drop arm. NVI. 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 Guzman is a 64-year-old right-hand dominant female who presents to the office today accompanied by her grandson for evaluation of chronic right shoulder pain and difficulty with range of motion. The grandson states that she was trying to move a stove roughly 1 years ago when the 1st injury occurred to her right shoulder. Additionally she had another incident where she fell landing on an outstretched arm and then directly onto the right shoulder. She has been attending physical therapy but has recently stopped due to extreme pain. At her last appointment on 07/06/2024 the patient had a cortisone injection which gave her some relief. While in the office today, we discussed the role of repeat cortisone injection versus continued therapy versus MRI imaging. As the last 1 did not offer her much relief. She is hesitant to attend physical therapy because every session she left in tears due to extreme pain. Therefore, I have placed an MRI order at this time to further evaluate the integrity of the right shoulder and surrounding structures. She will follow up after the MRIs obtained, sooner if needed. 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
--- OUTSIDE RECORDS SUMMARY | 2025-01-04 13:39 | XMS_ITS | Encounter Summary ---
Author Organization [employer] Address [address]t [place] [address] Care Team Providers Care Printed Products Assembler Name Role Phone Neyda Chacko MD Primary Care Provider [phone] Rj Ellsworth PharmD Unavailable [phone] Reason for Visit * Reason Onset Date Comments Med Refill 09/03/2022 Encounter Details Date Type Department Care Team (Late st Contact Info) Description 09/03/2022 Telephone [facility] [address] [place], [place] [phone] Neyda Chacko MD [address] [place], [place] [phone] Med Refill Social History Tobacco Use Types [...] Care Team (Late st Contact Info) Description 03/12/2025 1:00 PM EST Medication Management [facility] [address] [place] [address] Rj Ellsworth, PharmD [address] [place] [address] documented as of this encounter Visit Diagnoses Not on filedocumented in this encounter Additional Health Concerns Assessment Noted Time PHQ-9 Depression Total Score: 5 03/12/19 23 10:44 AM EST documented as of this encounter Care Teams Printed Products Assembler Relationship Specialty Start Date End Date Neyda Chacko MD [address] [place] [id number] PCP - General Family Medicine 02/22/18 Rj Ellsworth, PharmD [address] [place] [id number] Pharmacist Pharmacy 11/20/24 documented as of this encounter
--- OUTSIDE RECORDS SUMMARY | 2025-01-04 13:39 | XMS_ITS | Encounter Summary ---
Author Organization [employer] [facility] Address [address] [place] [address] 7t [place] [address] Care Team Providers Care Cardiology Technologist Name Role Phone Neyda Chacko MD Primary Care Provider [phone] Rj Ellsworth PharmD Unavailable [phone] Encounter Details Date Type Department Care Team (Late st Contact Info) Description 03/06/2022 Orders Only [facility] [address] [place] [phone] Misa Tillman LPN Social History Tobacco Use [...] Description 03/12/2025 1:00 PM EST Medication Management [facility] [address] [place] [address] Rj Ellsworth, PharmD [address] [place], [place] [phone] documented as of this encounter Visit Diagnoses Not on filedocumented in this encounter Care Teams Cardiology Technologist Relationship Specialty Start Date End Date Neyda Chacko MD [address] [place], [place] [phone] PCP - General Family Medicine 02/22/18 Rj Ellsworth, PharmD [address] [place] [phone] Pharmacist Pharmacy 11/20/24 documented as of this encounter
--- OUTSIDE RECORDS SUMMARY | 2025-01-04 13:39 | XMS_ITS | Encounter Summary ---
Author Organization [employer] [facility] Address [address]t [place] [address] Care Team Providers Care Fruit Checker Name Role Phone Neyda Chacko MD Primary Care Provider [phone] Rj Ellsworth PharmD Unavailable [phone] Encounter Details Date Type Department Care Team (Latest Contact Info) Description 05/21/2020 Abstract [facility] CONVERSIONS Dental, Provider, DDS Social History [...] Description 03/12/2025 1:00 PM EST Medication Management [facility] [address] [place] [address] Rj Ellsworth, PharmD [address] [place] [address] documented as of this encounter Visit Diagnoses Not on filedocumented in this encounter Care Teams Fruit Checker Relationship Specialty Start Date End Date Neyda Chacko MD [address] [place] [address] PCP - General Family Medicine 02/22/18 Rj Ellsworth, PharmD [address] [place] [phone] Pharmacist Pharmacy 11/20/24 documented as of this encounter
--- OUTSIDE RECORDS SUMMARY | 2025-01-04 13:39 | XMS_ITS | Encounter Summary ---
Author Organization [employer] Address [address] [place] [address] Care Team Providers Care Convex Grinder Name Role Phone Neyda Chacko MD Primary Care Provider [phone] Rj Ellsworth PharmD Unavailable [phone] Encounter Details Date Type Department Care Team (Late st Contact Info) Description 11/14/2024 Telephone [facility] [address] [place], [place] [phone] Neyda Chacko MD [address] [place], [place] [phone] Social History Tobacco Use Types Packs/Day Years [...] Answer Date Recorded Patient Health Questionnaire-9 Score 8 08/29/2024 Patient Health Questionnaire-9 Score 8 08/29/2024 Last PHQ-9: Questionnaire Data Not on file 0 08/29/2024 Housing Stability Answer Date Recorded What is your housing situation today? I have deandre gardiner 08/29/[address] you li ve. Do you have problems with any of the following? None of the above 08/29/2024 Food Insecurity Answer Date Recorded Within the past 12 months, y ou worried that your food would run out before you got money to buy more: Never True 08/29/2024 Within the past 12 months,th e food you bought just didn't last and you didn't have enough money to get more: Never True 09/2024 Transportation Answer Date Recorded In the past 12 months, has l ack of transportation kept you from medical appts, meetings, work or from getting things needed for daily living? No 08/29/2024 Utilities Answer Date Recorded In the past 12 months, has t he [place], gas, oil or water company threatened to shut off services in your home? No 08/29/2024 Depression Answer Date Recorded Patient Health Questionnaire-2 Score 2 08/29/2024 Internet Access Answer Date Recorded Internet Access Q1 Yes 08/29/2024 Internet Access Q2 Not on file 08/29/2024 Comments No Sex and Gender Information Value Date Recorded Sex Assigned at Female 12/22/2021 10:14 AM EDT Legal Sex Female 10:14 AM EDT Gender Identity Female 12/22/2021 10:14 AM EDT Sexual Orientation Straight 12/22/2021 10 :14 AM EDT documented as of this encounter Plan of Treatment Upcoming Encounters Date Type Department Care Team (Late st Contact Info) Description 03/12/2025 1:00 PM EST Medication Management [facility] [address] [place] [address] Rj Ellsworth, LiyahD [address] [place] [address] documented as of this encounter Visit Diagnoses Not on filedocumented in this encounter Additional Health Concerns Assessment Noted Time PHQ-9 Depression Total Score: 8 08/30/19 25 10:35 AM EDT documented as of this encounter Care Teams Convex Grinder Relationship Specialty Start Date End Date Neyda Chacko MD [address] [place] [phone] PCP - General Family Medicine 02/22/18 Rj Ellsworth, PharmD [address] [place] [address] [phone] Pharmacist Pharmacy 11/20/24 documented as of this encounter
--- OUTSIDE RECORDS SUMMARY | 2025-01-04 13:39 | XMS_ITS | Encounter Summary ---
Author Organization [facility] [facility] Address [address] [place] [address] 7t [place] [address] Care Team Providers Care Manager Process Improvement Name Role Phone Neyda Chacko MD Primary Care Provider Rj Ellsworth PharmD Unavailable [phone] Reason for Visit * Reason Comments Med Refill Encounter Details Date Type Department Care Team (Late st Contact Info) Description 01/28/[address] [facility] [address] [place], [place] [phone] [facility] [address] [place], [place] [phone] Type 2 diabetes mellitus with hyperglycemia (CMS/HCC) [...] Description 03/12/2025 1:00 PM EST Medication Management [facility] [address] [place], [place] [phone] Rj Ellsworth, PharmD [address] [place] [address] documented as of this encounter Visit Diagnoses Diagnosis Type 2 diabetes mellitus with hyperglycemia (HCC) documented in this encounter Care Teams Manager Process Improvement Relationship Specialty Start Date End Date Neyda Chacko MD [address] [place], [place] [phone] PCP - General Family Medicine 02/22/18 Rj Ellsworth, Stephane [address] [place] [address] Pharmacist Pharmacy 11/20/24 documented as of this encounter
--- OUTSIDE RECORDS SUMMARY | 2025-01-04 13:39 | XMS_ITS | Encounter Summary ---
Author Organization [employer] Address [address] [facility] 7[address] [place] [address] Care Team Providers Care Brand Designer Name Role Phone Neyda Chacko MD Primary Care Provider [phone] Rj Ellsworth PharmD Unavailable [phone] Encounter Details Date Type Department Care Team (Late st Contact Info) Description 12/16/[address] [facility] [address] [place], [place] [phone] Neyda Chacko MD [address] [place], [place] [phone] Leukopenia, unspecified type (Primary Dx) Social History [...] your housing situation today? I have deandre zuleyka 06/15/[address] you li [...] Description 03/12/2025 1:00 PM EST Medication Management [facility] [address] [place] [address] Rj Ellsworth, PharmD [address] [place] [address] documented as of this encounter Procedures Procedure Name Priority Date/Time Associated Diagnosis Comments PATHOLOGIST REVIEW - CBC Routine 12/17/2023 12:02 PM EDT Leukopenia, unspecified type CBC WITH AUTO DIFFERENTIAL Routine 12/17/2023 12:02 PM EDT Leukopenia, unspecified type documented in this encounter Results * Pathologist Review - CBC (12/17/2023 12:02 PM EDT) Pathologist Review - CBC SEE NOTE [facility] Comment:Peripheral blood joshua ments are normal appearing.- Yash Moreno M.D. Pathology Blood Venous blood specimen / Unknown 12/17/2023 12:02 PM EDT 12/17/2023 1:19 PM EDT us Neyda Chacko MD LAB BLOOD ORDERABLES Final Resul t [facility] [address] [place], [place] [phone] * (ABNORMAL) CBC auto differential (12/17/2023 12:02 PM EDT) White Blood Count 3.7(L) 4.8 - 10.8 X10*3/uL [facility] Red Blood Count 4.47 4.20 - 5.50 X10*6/uL [facility] Hemoglobin 13.0 12.0 - 16.0 g/dl [facility] Hematocrit 38.4 37.0 - 47.0 % [facility] Mean Corpuscular Volume 85.9 80.0 - 98.0 fL [facility] Mean Corpuscular Hemoglobin 29.1 27.0 - 33.0 pg [facility] Mean Corpuscular HGB Conc 33.9 31.0 - 35.0 g/dl [facility] Red Cell Distribution Width 11.9 11.0 - 16.0 % [facility] Platelet Count 209 160 - 400 X10*3/uL [facility] Mean Platelet Volume 9.7 9.4 - 12.3 fL [facility] Neutrophils Percent Auto 55.4 45 - 73 % [facility] Imm Gran Pct Auto 0.3 0.0 - 0.4 % [facility] Lymphocytes Percent Auto 33.4 20 - 40 % [facility] Monocytes Percent Auto 8.0 2 - 11 % [facility] Eosinophils Percent Auto 2.4 0 - 4 % [facility] Basophils Percent Auto 0.5 0 - 2 % [facility] NRBC Pct Auto 0.0 0.0 - 0.2 /100WBC [facility] Neutrophils Absolute Auto 2.1 2.0 - 8.3 x10*3/uL [facility] Imm Gran Abs Auto 0.01 0.00 - 0.03 X10*3/uL [facility] Lymphocytes Absolute Auto 1.3 1.2 - 4.9 X10*3/uL [facility] Monocytes Absolute Auto 0.3 0.1 - 1.2 X10*3/uL [facility] Eosinophils Absolute Auto 0.1 0.0 - 0.4 X10*3/uL [facility] Basophils Absolute Auto 0.0 0.0 - 0.2 X10*3/uL [facility] NRBC Abs Auto 0.000 0.0 - 0.012 X10*3/uL [facility] Blood Venous blood specimen / Unknown 12/17/2023 12:02 PM EDT 12/17/2023 1:19 PM EDT us Neyda Chacko MD LAB BLOOD ORDERABLES Final Resul t [facility] [address] [place] [address] [phone] documented in this encounter Visit Diagnoses Diagnosis Leukopenia, unspecified type- Primary documented in this encounter Additional Health Concerns Assessment Noted Time PHQ-9 Depression Total Score: 7 06/15/19 24 10:57 AM EDT documented as of this encounter Care Teams Brand Designer Relationship Specialty Start Date End Date Neyda Chacko MD [address] [place] [address] PCP - General Family Medicine 02/22/18 Rj Ellsworth, Stephane [address] [place] [address] Pharmacist Pharmacy 11/20/24 documented as of this encounter
--- OUTSIDE RECORDS SUMMARY | 2025-01-04 13:39 | XMS_ITS | Encounter Summary ---
Author Organization [facility] [facility] Address [address] [facility] [address] [place] [address] Care Team Providers Care Brushing Operator Name Role Phone Neyda Chacko MD Primary Care Provider [phone] Rj Ellsworth PharmD Unavailable [phone] Encounter Details Date Type Department Care Team (Latest Contact Info) Description 01/03/2019 Abstract [facility] CONVERSIONS Dental, Provider, DDS Social [...] Description 03/12/2025 1:00 PM EST Medication Management [facility] [address] [place] [address] Rj Ellsworth, PharmD [address] [place] [address] documented as of this encounter Visit Diagnoses Not on filedocumented in this encounter Care Teams Brushing Operator Relationship Specialty Start Date End Date Neyda Chacko MD [address] [place] [address] PCP - General Family Medicine 02/22/18 Rj Ellsworth PharmD [address] [place] [phone] Pharmacist Pharmacy 11/20/24 documented as of this encounter
--- OUTSIDE RECORDS SUMMARY | 2025-01-04 13:39 | XMS_ITS | Data Portability ---
Author Organization [facility] Address [address] [place] [address] Care Team Providers Care Circular Clerk Name Role Phone HIM CCA OTHER JIRosario DARION Primary Care Provider [phone] Assessment Encounter Date Assessment Date Assessment LastModified by Organization Details LastModified Time 05/04/2024 05/04/2024 I have reviewed and agree with the assessment and plan as documented by the netsuite consultant. I provided real-time medical direction for this encounter and was immediately available to provide additional phone-based assistance as needed. HPI: 64F with recent breast biopsy 3 weeks ago presenting with redness, swelling, severe pain to area. No fever. Called clinic and they rx keflex, has not started yet. No n/v/d. No other systemic findings. VSS. Area 4cm x 3cm, indurated, erythema. Discharge noted. Significant pain to palpation. Exam otherwise unremarkable per the netsuite consultant Impression: Abscess, draining. No systemic symptoms. Plan: Recommend initiation of keflex and abscess/celluli tis area demarcated. Advised to monitor for worsening redness spreading beyond line, fever, or systemic symptoms. We discussed the diagnostic uncertainty of home visits and the risk associated with this. In this case, the patient and I felt this to be an acceptable and reasonable amount of risk given the benefit of avoiding an ED visit. We discussed the need to seek care urgently/emerge ntly in the setting of any new or worsening serious symptoms, particularly weakness, dizziness, fever, chills, CP, SOB, worsening diarrhea, nausea, vomiting or any other concerns. paysola Not available 05/04/2024 20:24:33 Plan of Treatment Reminders Order Date Submit Date Provider Last Modified By Organization Details Last Modified Time Details Appointments None record ed. Lab None record ed. Referral None record ed. Procedures None record ed. Surgeries None record ed. Imaging None record ed. Medication Orders None record ed. Patient TargetsNo targets recorded. Patient InstructionsNo instructions recorded. Reason for Referral None Reported. Medical Equipment None Reported. Allergies Allergen ID Allergen Name Allergen Category Reaction Reaction Severity Criticality Documentation Date Start Date Code Code System Note Provider Name and Address Organization Details Recorded Time 78238 marek weathers medicatio n Not available Not available Not available 05/04/2024 74798 RxNorm Not Available [employer] - production 14:41:16 Medications Name Sig Start Date Stop Date Status Note LastModified by Organization Details LastModified Time medbox status USE DIRECTED active Not Available Not Available No t Available amoxicillin 500 mg capsule TAKE 1 CAPSULE BY MOUTH EVERY 8 HOURS FOR 7 DAYS active Not Available Not Available No t Available lisinopril 20 mg-hydrochlo rothiazide 12.5 mg tablet TAKE 2 TABLETS BY MOUTH ONCE DAILY AT NOON active Not Available Not Available No t Available cilostazol 50 mg tablet TAKE 1 TABLET BY MOUTH TWICE DAILY IN THE MORNING AND IN THE EVENING 30 MINUTES BEFORE OR 2 HOURS AFTER BREAKFAST AND DINNER active Not Available Not Available N ot Available venlafaxine ER 150 mg capsule,exte nded release 24 hr TAKE 1 CAPSULE BY MOUTH EVERY MORNING DIRECTED active Not Available Not Available No t Available aspirin 81 mg tablet,delay ed release TAKE 1 TABLET BY MOUTH EVERY EVENING active Not Available Not Available No t Available tramadol 50 mg tablet TAKE 1 TABLET BY MOUTH EVERY DAY NEEDED FOR SEVERE PAIN active Not Available Not Available Not Available acetaminophe n 500 mg tablet TAKE 1 TABLET BY MOUTH EVERY 6 HOURS NEEDED FOR MILD PAIN active Not Available Not Available No t Available pantoprazole 40 mg tablet,delay ed release TAKE 1 TABLET BY MOUTH TWICE A DAY active Not Available Not Available No t Available buspirone 30 mg tablet TAKE 1 TABLET BY MOUTH TWICE DAILY IN THE MORNING AND AT BEDTIME active Not Available Not Available No t Available ferrous sulfate 325 mg (65 mg iron) tablet TAKE 1 TABLET BY MOUTH EVERY MORNING active Not Available Not Available No t Available metoprolol tartrate 50 mg tablet TAKE 1 TABLET BY MOUTH TWICE DAILY IN THE MORNING AND IN THE EVENING WITH MEALS active Not Available Not Available N ot Available insulin lispro (U-100) 100 unit/mL subcutaneous solution INJECT 8 TO 12 UNITS SUBCUTANEOU SLY BEFORE BREAKFAST, BEFORE LUNCH, AND BEFORE SUPPER active Not Available Not Available No t Available ibuprofen 600 mg tablet TAKE 1 TABLET BY MOUTH EVERY 6 HOURS NEEDED FOR MILD PAIN active Not Available Not Available No t Available zolpidem 10 mg tablet TAKE 1 TABLET BY MOUTH AT BEDTIME NEEDED active Not Available Not Available No t Available metformin ER 500 mg tablet,exten ded release 24 hr TAKE 2 TABLETS BY MOUTH TWICE DAILY IN THE MORNING AND EVENING active Not Available Not Available Not Available doxycycline hyclate 100 mg tablet TAKE 1 TABLET BY MOUTH TWICE DAILY FOR 10 DAYS WITH A FULL GLASS OF WATER. Do not lie down for 30 minutes after taking. active Not Available Not Available No t Available rosuvastatin 40 mg tablet TAKE 1 TABLET BY MOUTH AT BEDTIME active Not Available Not Available No t Available FreeStyle Lite Strips USE DIRECTED TO TEST BLOOD SUGAR FOR 5 DAYS active Not Available Not Available No t Available BD Ultra-Fine Irais Pen Needle 32 gauge x USE DIRECTED EVERY DAY active Not Available Not Available No t Available Vitamin D3 50 mcg (2,000 unit) capsule TAKE 1 CAPSULE BY MOUTH EVERY MORNING active Not Available Not Available No t Available TRUEplus Lancets 33 gauge USE DIRECTED TO TEST BLOOD SUGAR FIVE TIMES DAILY active Not Available Not Available Not Available Jardiance 25 mg tablet TAKE 1 TABLET BY MOUTH EVERY MORNING active Not Available Not Available No t Available Tresiba FlexTouch U-200 insulin 200 unit/mL (3 mL) subcutaneous pen 70 UNIT (0.35 ML) SUBCUTANEOU SLY DAILY active Not Available Not Available No t Available BD Veo Insulin Syringe Ultra-Fine 1/2 mL 31 gauge x 15/64 USE THREE OR FOUR TIMES DAILY DIRECTED WITH humalog active Not Available Not Available No t Available Ozempic 2 mg/dose (8 mg/3 mL) subcutaneous pen injector Inject 2 MG SUBCUTANEOU SLY EVERY 7 DAYS IN THE ABDOMEN, THIGHS OR UPPER ARM. ROTATE INJECTION SITES. active Not Available Not Available No t Available Vitals Date Recorded Oxygen saturation Oxygen saturation in Arterial blood by Pulse oximetry Body temperature Heart rate Respiratory rate Systolic And Diastolic Provider Name and Address Organization Details Last Updated DateTime 5 96 % 96 % 98.6 [degF] 74 /min 16 /min 118/76 mm[Hg] Not Available [employer] - production 5 19:28:17 Social History None recorded. Functional Status None recorded. Mental Status None recorded. Family History Nothing Reported. Medical History No medical history recorded. Gynecological HistoryNo gynecological history recorded. Obstetrics History GPAL:G 0 P 0 0 0 0 Past Encounters Encounter ID Performer Location Encounter Start Date Encounter Closed Date Diagnosis/Indication Diagnosis SNOMED-CT Code Diagnosis ICD10 Code Diagnosis IMO Codes Diagnosis Note [id number] Nancy Yousif MD [facility] [address] [place] [address] 05/04/2024 19:28:14 05/04/2024 21:18:24 Abscess of skin and/or subcutaneous tissue 49292992 L02.91 Health Concerns Section Related Observation LastModified by Organization Detai ls LastModified Time None Recorded Concern Status LastModified by Organization Details LastModified Time None Recorded Advance Directives Directive None Recorded Payers Insurance Date Sequence Insurance Name Policy Number Policy Raygoza Covered Member ID Raygoza Member ID Guarantor Name 05/04/2024 1 [facility] - DOS ON OR AFTER 2022 - DUAL ELIGIBLE - CUSTODIAL OPTIONS AND ONE CARE (MEDICARE REPLACEMENT/ADV ANTAGE - HMO) Jaimee Guzman [id number] Jaimee Guzman Notes Date Note Type Note Provider Name and Address Organization Details Recorded Time 05/04/2024 text/html HPI: Other PHM: peripheral venous insufficiency Visiting nurse calling to request visit for patient with s/sx of infection. Patient had a biopsy of right breast on 05/19. Area is red, painful, and hot to touch. Small amount of blood noted 2 days ago. No drainage currently. Denies fever/chills. Not currently on any antibiotics. on ASA, no blood thinners. ................... ................... ................... ................... ................... ................... ................... ........ [facility] Nurse Triage Notes (Prachi Pennington): Reason For Request: Pt's PCP Nurse reporting a biopsy on right breast a few days ago and reporting hot + redness to the touch of area Chief Complaints: Postoperative Problems PMH: Sleep Apnea, Hypertension, Anemia, Diabetes Mellitus Type 2, Hyperlipidemia, Depression, Chronic Back Pain, Other PMH Reviewed at 05/04/2024:41 Allergies Reviewed at 05/04/2024:41 ................... ................... ................... ................... ................... ................... ................... ........ Pipe Line Gauger Note From Simon Parada: Dispatched to above address for post op infection. On arrival patient 64 y/o F, found sitting on couch, AOX4, airway patent, speaking in full sentences, good color, in no apparent distress. Patient Finnish speaking inly, family translating. Patient states on 04/12/2024 she had a biopsy on mass found in R breast, a couple days after site became red and sore, spoke with surgical team who recommended home monitoring, this has developed into a large abscess, very painful, had a small amount of blood drained a couple days ago but no current drainage, called surgical team today who prescribed cefalexin which she has not taken yet. Patients vital signs checked. On exam, penelope sized abscess, no active drainage but spots of moisture, redness around area, patient will not allow for palpation, photo taken and uploaded. [facility] contacted, spoke with Dr. Yousif, advised of patient complaints and exam findings. [facility] recommends home monitoring, follow up if no improvement in 24hrs, seek emergency care if it worsens and follow up with surgical team, requests SC8 to laura line around site. Line marked. Patient agrees with care plan. Patient advised of red flags, home care and need for follow up. Patient advises plan for follow up with surgical team. Patient has no additional questions or concerns at this time. SC8 clear. EOR. ................... ................... ................... ................... ................... ................... ................... ........ [facility] Consulted: Nancy Yousif ................... ................... ................... ................... ................... ................... ................... ........ Disposition: Fulfilled Nancy Yousif MD [address] [place] [address],[facility], [place], [phone], [employer] [facility] [employer] 05/04/2024 20:25:13 OBGyn Episode No OBEpisode recorded.
--- OUTSIDE RECORDS SUMMARY | 2025-01-04 13:39 | XMS_ITS | Encounter Summary ---
Author Organization [employer] [facility] Address [address] [facility] [address]t [place] [address] Care Team Providers Care Bicycle Taxi Driver Name Role Phone Neyda Chacko MD Primary Care Provider [phone] Rj Ellsworth PharmD Unavailable [phone] Reason for Referral * Consultation (Routine) - Authorized Specialty Diagnoses / Procedures Referred By Rob hagan Referred To Contact Pharmacy Diagnoses Type 2 diabetes mellitus with hyperglycemia, with long-term current use of insulin (HCC) Essential hypertension Neyda Chacko MD [address] [place] [address] Phone: tel: fax: Referral ID Status Reason Start Date Expiration Date Visits Requested Visits Authorized [id number] Authorized Consult and Treat 10/06/2024 10/06/2025 6 6 Encounter Details Date Type Department Care Team (Late st Contact Info) Description 10/06/2024 Orders Only [facility] [address] [place], [place] [phone] Neyda Chacko MD [address] [place], [place] [phone] Type 2 diabetes mellitus with hyperglycemia, with long-term current use of insulin (CMS/HCC) (Primary Dx); Essential hypertension Social History Tobacco Use Types Packs/Day [...] Description 03/12/2025 1:00 PM EST Medication Management [facility] [address] [place] [address] Rj Ellsworth, PharmD [address] [place] [address] Scheduled Referrals Name Type Priority Associated Diagnoses Orde r Schedule Referral to Pharmacy CD Outpatient Referral Routine Type 2 diabetes mellitus with hyperglycemia, with long-term current use of insulin ([facility]) Essential hypertension Ordered: 10/06/2024 documented as of this encounter Visit Diagnoses Diagnosis Type 2 diabetes mellitus with hyperglycemia, with long-term current use of insulin ([facility])- Primary Essential hypertension Unspecified essential hypertension documented in this encounter Additional Health Concerns Assessment Noted Time PHQ-9 Depression Total Score: 8 08/30/19 25 10:35 AM EDT documented as of this encounter Care Teams Bicycle Taxi Driver Relationship Specialty Start Date End Date Neyda Chacko MD [address] [place] [address] PCP - General Family Medicine 02/22/18 Rj Ellsworth, Stephane [address] [place] [address] Pharmacist Pharmacy 11/20/24 documented as of this encounter
--- OUTSIDE RECORDS SUMMARY | 2025-01-04 13:39 | XMS_ITS | Encounter Summary ---
Author Organization [employer] Address [address] [facility] [address] [place] [address] Care Team Providers Care Software Asset Manager Name Role Phone Neyda Chacko MD Primary Care Provider [phone] Rj Ellsworth PharmD Unavailable [phone] Reason for Visit * Reason Onset Date Comments Med Refill 01/01/2025 Encounter Details Date Type Department Care Team (Late st Contact Info) Description 01/01/2025 Refill [facility] [address] [place], [place] [phone] Neyda Chacko MD [address] [place], [place] [phone] Social History Tobacco Use Types Packs/Day Years [...] encounter Miscellaneous Notes * Telephone Encounter - Misa Tillman LPN - 01/01/2025 12:40 PM EST Last seen 08/29/24 * Telephone Encounter - Sona Barba - 01/01/2025 12:31 PM EST TC from pt requesting medication refill. Medications needing refill : - Tresiba FlexTouch 200 UNIT/ML injection To be sent to: - [facility]/pharmacy #[id number] [place], [place] - [address] [facility] documented in this encounter Plan of Treatment Upcoming Encounters Date Type Department Care Team (Late st Contact Info) Description 03/12/2025 1:00 PM EST Medication Management [facility] [address] [place] [address] Rj Ellsworth, PharmD [address] [place] [phone] documented as of this encounter Visit Diagnoses Not on filedocumented in this encounter Additional Health Concerns Assessment Noted Time PHQ-9 Depression Total Score: 8 08/30/19 25 10:35 AM EDT documented as of this encounter Care Teams Software Asset Manager Relationship Specialty Start Date End Date Neyda Chacko MD [address] [place] [address] PCP - General Family Medicine 02/22/18 Rj Ellsowrth, PharmD [address] [place] [phone] Pharmacist Pharmacy 11/20/24 documented as of this encounter
--- OUTSIDE RECORDS SUMMARY | 2025-01-04 13:39 | XMS_ITS | Clinical Summary ---
Author Organization [employer] Address [address] [facility] [address] [place] [address] Care Team Providers Care Refuge Manager Name Role Phone Neyda Chacko MD Primary Care Provider [phone] Rj Ellsworth PharmD Unavailable [phone] Allergies Active Allergy Reactions Criticality Noted Date Comments Pioglitazone 03/14/2010 Other reaction(s): unspecified Medications Blood Glucose Monitoring Suppl ([facility]) w/Device kit USE DIRECTED Active busPIRone [...] by mouth if needed at bedtime. Active pantoprazole (ProtoNix) 40 MG EC tablet TAKE 1 TABLET BY MOUTH TWICE A DAY 023 Active Senna-Time 8.6 MG tablet TAKE 2 TABLETS BY MOUTH EVERY DAY AT BEDTIME NEEDED FOR CONSTIPATION 023 Active Carafate 1 GM/10ML suspension TAKE 20ML BY MOUTH EVERY DAY 023 Active Blood Pressure Monitor kitIndications: Essential hypertension Use to check blood pressure daily as directed 1 024 Active Pentips 32G X 4 MM misc USE ONCE DAILY 100 each 6 024 Active D3 Super Strength 50 MCG (2000 UT) capsuleIndicati ons:Vitamin D deficiency TAKE 1 CAPSULE BY MOUTH EVERY MORNING 90 capsule 3 024 Active Aspirin Low Dose 81 MG EC tabletIndicatio ns:Peripheral arterial occlusive disease TAKE 1 TABLET BY MOUTH EVERY EVENING [...] with long-term current use of insulin (HCC) USE THREE TO FOUR TIMES DAILY WITH humalog 120 each 11 025 Active lisinopril-hydr oCHLOROthiazide 20-12.5 MG tablet TAKE 2 TABLETS BY MOUTH ONCE DAILY AT NOON 180 tablet 3 025 Active FREESTYLE LITE test stripIndication s:Type 2 diabetes mellitus with hyperglycemia, with long-term current use of insulin ([facility]) USE DIRECTED TO TEST BLOOD SUGAR FOR 5 DAYS 100 strip 11 Active TRUEplus Lancets 33G miscIndications :Type 2 diabetes mellitus with hyperglycemia, with long-term current use of insulin (HCC) USE DIRECTED TO TEST BLOOD SUGAR FIVE TIMES DAILY 100 each 11 025 Active lidocaine (Lidoderm) 5 % patchIndication s:Chronic right shoulder pain Apply 1 patch topically Once per day. Remove & discard patch within 12 hours or as directed by . 30 patch 025 Active Insulin Lispro 100 UNIT/ML solution Inject 0.12 mL (12 Units) under the skin before breakfast, before lunch, and before evening meal. INJECT 8-12 UNITS SUBCUTANEOUSLY BEFORE MEALS. 10 mL 025 Active traMADol (Ultram) 50 MG tabletIndicatio ns:Chronic right shoulder pain Take 1 tablet (50 mg) by mouth if needed at bedtime for severe pain. 30 tablet 025 Active Ozempic, 2 MG/DOSE, 8 MG/3ML solution pen-injectorInd ications:Type 2 diabetes mellitus with hyperglycemia, with long-term current use of insulin ([facility]) Inject 2 MG SUBCUTANEOUSLY EVERY 7 DAYS IN THE ABDOMEN, THIGHS OR UPPER ARM. ROTATE INJECTION SITES. 3 mL 1 025 Active cilostazol (Pletal) 50 MG tabletIndicatio ns:Peripheral arterial occlusive disease TAKE 1 TABLET BY MOUTH TWICE DAILY IN THE MORNING AND IN THE EVENING 30 MINUTES BEFORE OR 2 HOURS AFTER BREAKFAST AND DINNER 60 tablet 5 025 Active Jardiance 25 MGIndications:T ype 2 diabetes mellitus with hyperglycemia, with long-term current use of insulin ([facility]) TAKE 1 TABLET BY MOUTH EVERY MORNING 30 tablet 1 025 Active Continuous Glucose Sensor (Dexcom G7 Sensor) miscIndications :Type 2 diabetes mellitus with hyperglycemia, with long-term current use of insulin ([facility]) 1 each every 10 (ten) days. 9 each 3 025 Active metFORMIN XR (Glucophage-XR) 500 MG 24 hr tablet TAKE 2 TABLETS BY MOUTH TWICE DAILY IN THE MORNING AND EVENING 360 tablet 3 025 Active metoprolol tartrate (Lopressor) 50 MG tabletIndicatio ns:Primary hypertension TAKE 1 TABLET BY MOUTH TWICE DAILY IN THE MORNING AND IN THE EVENING WITH MEALS 180 tablet 3 025 Active rosuvastatin (Crestor) 40 MG tabletIndicatio ns:Dyslipidemia TAKE 1 TABLET BY MOUTH AT BEDTIME 90 tablet 3 025 Active Tresiba FlexTouch 200 UNIT/ML injection Administer 70 units subcutaneously daily 3 mL 11 Active Tresiba FlexTouch 200 UNIT/ML injection Administer 70 units subcutaneously daily 3 mL 024 2024 Discontinued(R eorder (will not trigger notification to Pharmacy)) metoprolol tartrate (Lopressor) 50 MG tabletIndicatio ns:Primary hypertension TAKE 1 TABLET BY MOUTH TWICE DAILY IN THE MORNING AND IN THE EVENING WITH MEALS 180 tablet 3 024 2024 Discontinued rosuvastatin (Crestor) 40 MG tabletIndicatio ns:Dyslipidemia TAKE 1 TABLET BY MOUTH AT BEDTIME 90 tablet 3 024 2024 Discontinued metFORMIN XR (Glucophage-XR) 500 MG 24 hr tablet TAKE 2 TABLETS BY MOUTH TWICE DAILY IN THE MORNING AND EVENING 360 tablet 3 024 2024 Discontinued Active Problems Problem Noted [...] liver disease ([facility]) 03/30/2024 Assessment & Plan (09/10/2024 3:59 PM EDT): - Last liver test: Nov 2023 - Last US / elastography April 2024: The median shear wave 2.28 m/s; 4 mm gallbladder polyp; Findings are indicative of a high elastography value suggestive of compensated advanced chronic liver disease. - FIB4 index 1.51 - GI: [facility] - continue working on lifestyle modifications - continue surveillance study Assessment & Plan (04/04/2024 11:43 AM EST): - Last liver test: Nov 2023 - Last US / elastography - FIB4 index 1.51 - GI: [facility] - continue working [...] severe pain Gastroparesis 05/24/2022 Assessment & Plan (08/30/2024 6:08 PM EDT): -on GLP-1 agonist for DM -followed by [facility] GI, last seen in June 2023 -continue metoclopramide 10 mg tid, with caution due to its side effect Assessment & Plan (09/20/2023 12:04 PM EDT): -on GLP-1 agonist for DM -followed by [facility] GI, last seen in June 2023 -continue metoclopramide 10 mg tid, with caution due to its side effect Assessment & Plan (05/24/2022 3:57 PM EDT): -on GLP-1 agonist for DM -seen by GI on 03/19/22, restarted on metoclopramide -continue metoclopramide 10 mg tid Peripheral arterial occlusive disease 08/13/2016 Assessment & Plan (04/04/2024 11:42 AM EST): -Followed by [facility] provider -most recent PAWAN doppler on 08/13/21, moderate stenosis in b/l SFA and popliteal arteries -continue working on risk factor management -pt has been on cilostazol since 2017 - Ordered VASC US Lower Extremity Venous Insufficiency Bilateral - Ordered Vascular US lower extremity arterial duplex bilateral with VEENA Assessment & Plan (06/15/2023 11:00 AM EDT): -[facility] provider -most recent PAWAN doppler on 08/13/21, moderate stenosis in b/l SFA and popliteal arteries -continue working on risk factor management -pt has been on cilostazol since 2017 Assessment & Plan (10/19/2022 6:00 AM EDT): -[facility] -most recent PAWAN doppler on 08/13/21, moderate stenosis in b/l SFA and popliteal arteries -continue working on risk factor management -pt has been on cilostazol since 2016 Assessment & Plan (05/24/2022 3:54 PM EDT): -Followed by [facility] provider -most recent PAWAN doppler on 08/13/21, moderate stenosis in b/l SFA and popliteal arteries -continue working on risk factor management -pt has been on cilostazol since 2016 Assessment & Plan (03/15/2022 5:49 PM EST): -Followed by [facility] provider -most recent PAWAN doppler on 08/13/21, moderate stenosis in b/l SFA and popliteal arteries -continue working on risk factor management -pt has been on cilostazol since 2016 Hemorrhoids 07/01/2015 Chronic recurrent major depressive disorder 02/23 Assessment & Plan (06/15/2023 11:01 AM EDT): [facility] provider: Olayinka Cortez Counseling Current medications: venlafaxine; buspirone; hydroxyzine Continue following recommendation by S providers Patient lost her in Jan 2020 due to COVID and has been grieving. Patient is currently with her family and seems to have good support. Continue current S. Assessment & Plan (10/19/2022 6:03 AM EDT): [facility] provider: Olayinka Joiner Current medications: venlafaxine; buspirone; hydroxyzine Continue following recommendation by [facility] providers Patient lost her in Jan 2020 due to COVID and has been grieving. Patient is currently with her family and seems to have good support. Continue current S. Assessment & Plan (05/24/2022 4:01 PM EDT): [facility] provider: Olayinka Cortez Counseling Current medications: venlafaxine; buspirone; hydroxyzine Continue following recommendation by [facility] providers Patient lost her in Jan 2020 due to COVID and has been grieving. Patient is currently with her family and seems to have good support. Continue current S. Assessment & Plan (03/15/2022 5:50 PM EST): [facility] provider: Olayinka Joiner Current medications: venlafaxine; buspirone; hydroxyzine Continue following recommendation by [facility] providers Patient lost her in Jan 2020 due to COVID and has been grieving. Patient is currently with her family and seems to have good support. Continue current [facility]. Gastroesophageal reflux disease 03/19/2015 Assessment & Plan [...] lab Essential hypertension 12/19/2014 Assessment & Plan (09/10/2024 3:52 PM EDT): -Goal BP <130/80 per ACC/AHA -BP had been low lately, especially after weight loss with GLP-1RA. Adjusted BB dose in May 2023. 2nd measurement was 110/70 -Followed by [facility], last seen on 09/30/2023, annual exam -Continue working on lifestyle modifications -Continue monitoring BP at home -Continue Zestoretic 20-12.5 mg TWO dabs daily -Continue metoprolol tartrate 50 mg -Treatment Hx: discontinued furosemide for HTN -last echocardiogram: August 2008, EF 60-65%, mildly dilated LA -Referred patient for CDTM to de-prescribing and diabetes mellitus management. -Follow up in 3 mo or sooner prn Assessment & Plan (04/01/2024 7:27 AM EST): -Goal BP < 140/90 per JNC-8 and <130/80 per ACC/AHA -BP had been low lately, especially after weight loss with GLP-1RA. Adjusted BB dose in May 2023. -Followed by [facility], last seen on 09/17/22 -Continue working on [...] BB dose in May 2023. -Followed by [facility], last seen on 09/17/22 -Continue working on [...] BB dose in May 2023. -Followed by [facility], last seen on 09/17/22 -Continue working on [...] <130/80 per ACC/AHA -BP slightly low. Her straw hat plunger operator has suggested to taper down her diuretics since she had GSV ablation. -Followed by [facility], last seen on 09/17/22 -Continue current lifestyle [...] per ACC/AHA -BP within acceptable range. Her straw hat plunger operator has suggested to taper down her diuretics since she had GSV ablation. -Followed by [facility], last seen on 09/17/22 -Continue current lifestyle [...] per ACC/AHA -BP within acceptable range. Her straw hat plunger operator has suggested to taper down her diuretics since she had GSV ablation. -Followed by [facility], last seen on 12/10/21 -Continue current lifestyle [...] per ACC/AHA -BP within acceptable range. Her straw hat plunger operator has suggested to taper down her diuretics since she had GSV ablation. -Followed by [facility], last seen on 12/10/21 -Continue current lifestyle modification and medications. 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 - Continue staying physically active, compression stocking, leg elevation, and reduce sodium intake Assessment & Plan (04/04/2024 11:43 AM EST): [...] 2 diabetes mellitus 10/07/2011 Assessment & Plan (08/30/2024 6:10 PM EDT): -A1C 7.4% on 08/29/24, improved on 7.7% on 03/30/24 -Previously following with [facility] endocrinology, discharged in May 2023 due to stability -Continue Tresiba 70 units qAM (discrepancy from sweeper brush maker machine's note) -Continue Humalog 10 units before breakfast, [...] 27.8, early mild microalbuminuria Assessment & Plan (04/01/2024 7:29 AM EST): -A1C 7.7% on 03/30/24, no significant change from 7.9% on 12/21/23 -Previously following with [facility] endocrinology, discharged in May 2023 due to stability -Continue Tresiba 70 units qAM (discrepancy from sweeper brush maker machine's note) -Continue Humalog 10 units before breakfast, [...] -A1C 7.9% on 12/21/23 -Previously following with [facility] endocrinology, discharged in May 2023 due to stability -Continue Tresiba 70 units qAM (discrepancy from sweeper brush maker machine's note) -Continue Humalog 10 units before breakfast, [...] 7.2% on 06/15/23, improving -Previously following with [facility] endocrinology, discharged in May 2023 due to stability -Continue Tresiba 70 units qAM (discrepancy from sweeper brush maker machine's note) -Continue Humalog 10 units before breakfast, [...] PM EDT): -A1C 7.2% on 06/15/23, improving -Gunnery/Ordnance Officer: [facility], last seen on Sep 2022 -Continue Tresiba 70 units qAM (discrepancy from sweeper brush maker machine's note) -Continue Humalog 10 units before breakfast, [...] yet with hypoglycemia. 8.6% in Feb 2022 -Gunnery/Ordnance Officer: [facility], last seen on Sep 2022 -Continue Tresiba 70 units qAM (discrepancy from sweeper brush maker machine's note) -Continue Humalog 10 units before breakfast, [...] PM EDT): -A1C 8.6% today 03/11/22, improving -Gunnery/Ordnance Officer: [facility], last seen on 02/13/22 -Continue Tresiba 70 units qAM (discrepancy from sweeper brush maker machine's note) -Continue Humalog 8 units before breakfast, [...] PM EST): -A1C 8.6% today 03/11/22, improving -Gunnery/Ordnance Officer: [facility], last seen on 02/13/22 -Continue Tresiba 70 units qAM (discrepancy from sweeper brush maker machine's note) -Continue Humalog 8 units before breakfast, [...] to date Dyslipidemia 10/07/2011 Assessment & Plan (09/10/2024 3:52 PM EDT): - most recent lipid profile 12/15/23 - current medication: Rosuvastatin 40 mg at bedtime - continue working on lifestyle modifications - continue current medication Assessment & Plan (04/04/2024 11:41 AM EST): [...] Encounters Date Type Department Care Team Description 01/01/2025 Refill [facility] [address] [place] [address] Neyda Chacko MD 12/08/2024 Telephone [facility] [address] [place] [address] Neyda Chacko MD Chart prep 12/07/2024 Refill [facility] [address] [place] [address] Neyda Chacko MD Primary hypertension; Dyslipidemia 11/20/2024 Travel 11/16/2024 Refill [facility] [address] [place] [address] Neyda Chacko MD Type 2 diabetes mellitus with hyperglycemia, with long-term current use of insulin ([facility]) 11/14/2024 Telephone [facility] [address] [place] [address] Neyda Chacko MD 11/10/2024 Refill [facility] [address] [place] [address] Neyda Chacko MD Peripheral arterial occlusive disease ([facility]/HCC) 11/08/2024 Refill [facility] [address] [place] [address] Neyda Chacko MD Type 2 diabetes mellitus with hyperglycemia, with long-term current use of insulin ([facility]) 10/10/2024 Telephone [facility] [address] [place] [address] Neyda Chacko MD 10/06/2024 Orders Only [facility] [address], [place] [phone] Neyda Chacko MD Type 2 diabetes mellitus with hyperglycemia, with long-term current use of insulin ([facility]) (Primary Dx); Essential hypertension from Last 3 Months Immunizations Immunization Administration [...] Sign Reading Time Taken Comments Blood Pressure 112/60 11/20/2024 1:34 PM EDT Pulse 65 11/20/2024 1:34 PM EDT Temperature 36.1 C (96.9 F) 08/29/2024 10:37 AM EDT Respiratory Rate 14 08/29/2024 10:37 AM EDT Oxygen Saturation 96% 08/29/2024 10:37 AM EDT Inhaled Oxygen Concentration - - Weight 68.1 kg (150 lb 3.2 oz) 08/29/2024 10:37 AM EDT Height 153.2 cm (5' 0.32 ) 08/29/2024 10:37 AM E DT Body Mass Index 29.02 08/29/2024 10:37 AM EDT Plan of Treatment Upcoming Encounters Date Type Department Care Team (Late st Contact Info) Description 03/12/2025 1:00 PM EST Medication Management [facility] [address] [place] [address] Rj Ellsworth, PharmD [address] [place], [place] [phone] Health Maintenance Due Date Last Done Comments CT Colonography 1960 Dental X-Ray: Full Mouth 1958 FIT DNA/Cologuard 1960 FIT 1960 FOBT 1960 Sigmoidoscopy 1958 Alcohol/Substance Use Screening 1970 Hepatitis A Vaccines (1 of 2 - Risk 2-dose series) 1977 RSV Patients and Patients Aged 60 years or older (1 - Risk 50-74 years 1-dose series) 2008 Dental Oral Exam 09/29/2022 03/31/2022 Dental Prophylaxis 09/29/2022 03/31/2022 Dental X-Ray: Bitewings 04/01/2023 03/31/2022 Diabetes: Foot Exam 10/08/2023 10/07/2022, 10/07/2022, 10/07/2022, Additional history exists Eye Exam 12/26/2023 12/25/2022 COVID-19 Vaccine ( season) 2024 12/21/2023, 01/06/2022, 07/08/2021, Additional history exists Influenza Vaccine (#1) 2024 , 01/06/2022, 01/13/2021, Additional history exists Diabetes: Hemoglobin A1C 11/29/2024 025, 03/30/2024, 12/21/2023, Additional history exists Diabetes: Urine Protein Screening 12/14/2024 12/15/2023, 10/07/2022, 01/06/2022, Additional history exists Lipid Panel 12/14/2024 12/15/2023, 09/22, 01/06/2022, Additional history exists Colonoscopy 08/15/2025 08/15/2020 Colorectal Cancer Screening 08/15/2025 Depression Screening 08/29/2025 08/29/2024, 08/30/19 SDOH Screening 08/29/2025 08/29/2024 Tobacco Screening 09/10/2025 09/10/2024 Mammogram 03/15/2026 03/15/2024, 02/23, 01/28/2022, Additional history exists DTaP/Tdap/Td Vaccines (3 - Td or Tdap) 08/08/2031 08/07/2021, 04/07/2011, 08/20/2005, Additional history exists Hepatitis B Vaccines Completed 10/02/2013, 07/03/2013, 07/19/2012 Cervical Cancer Screening Discontinued HPV/Cotest Discontinued 12/27/2019, 05/2019, 09/30/2017 Zoster Vaccines Completed 10/04/2020, 08/01/2020 Pneumococcal Vaccine: 50+ Years Completed 10/07/2022, 08/20/2005, 11/07/1999 HIB Vaccines Aged Out No longer eligi [...] Comments POCT GLYCOSYLATED HEMOGLOBIN (HGB A1C) Routine 08/29/2024 10:39 AM EDT Type 2 diabetes mellitus with hyperglycemia, with long-term current use of insulin ([facility]) BI MAMMOGRAM DIAGNOSTIC TOMOSYNTHESIS BILATERAL Routine 03/15/2024 11:15 AM EST Breast pain, right ALBUMIN, RANDOM URINE W/CREATININE Routine 12/15/2023 11:00 AM EDT Type 2 diabetes mellitus with hyperglycemia, with long-term current use of insulin ([facility]) LIPID PANEL WITH REFLEX TO DIRECT LDL Routine 12/15/2023 11:00 AM EDT Type 2 diabetes mellitus with hyperglycemia, with long-term current use of insulin ([facility]) Dyslipidemia DIABETES EYE EXAM Routine [...] * (ABNORMAL) POCT glycosylated hemoglobin (Hgb A1c) (08/29/2024 10:39 AM EDT) Hemoglobin A1C 7.4(A) 4.0 - 5.7 % QC Media Lot # [id number] Lot# Expiration Date [id number] Blood Capillary blood specimen / Unknown 08/29/2024 10:39 AM EDT Neyda Chacko MD POINT OF CARE TEST ENTER/EDIT OR DERABLES Final Result * BI Mammogram Diagnostic Tomosynthesis Bilateral (03/15/2024 11:15 AM EST) Anatomical Region Laterality Modality Breast Bilateral Mammography 03/15/2024 11:1 5 AM EST Narrative 03/15/2024 12:29 PM EST [facility] [address] [place], [place] [address] Mammography Report Signed Patient: Jaimee Guzman I MR#: [id number] 2032 : 1960 Acct:[id number] Age/Sex: 63 / F ADM Date: 03/15/24 Loc: HO.MAMMIrene Attending Dr: Neyda Chacko MD Ordering Physician: Neyda Chacko MD Results: 4Suspicio us Finding Date of Service: 03/15/24 Follow Up: Biopsy Recommend ed Procedure(s): MM tomosynthesis diagnostic BI Accession Number(s): [id number] cc: Neyda Chacko MD EXAMINATION: MM DIAGNOSTIC [...] 03/15/24 1226 DD/ 1115 TD/TT: 03/15/24 1140 Youth Corrections Officer: Procedure Note Donotuseinterpreter, Image - 03/15/2024 [facility] [address] [place], [place] [address] Mammography Report Signed Patient: Jaimee Guzman IMR#: [id number] 2030 : 9Acct:[id number] Age/Sex: 63 / FADM Date: 03/15/24 Loc: HO.MAMMO Attending Dr: Neyda Chacko MD Ordering Physician: Neyda Chacko MDResults: 4Suspicio us Finding Date of Service: 03/15/24Follow Up: Biopsy Recommend ed Procedure(s): MM tomosynthesis diagnostic BI Accession Number(s): [id number] cc: Neyda Chacko MD EXAMINATION: MM DIAGNOSTIC [...] by: Nereyda Carvajal DO 03/15/2024 12:26 PM [facility] [place] Dictated By: Nereyda Carvajal DO Signed By: <Electronically signed by Nereyda Carvajal DO in OV> 03/15/24 1226 DD/ 1115 TD/TT: 03/15/24 1140 Youth Corrections Officer: us Neyda Chacko MD IMG BI PROCEDURES Final Result * Lipid Panel with Reflex to Direct LDL (12/15/2023 11:00 AM EDT) Triglycerides 45 <150 mg/dL [facility] Comment:Desirable Triglyceri de: less than [...] 190 mg/dL HDL Cholesterol 53 >40 mg/dL [facility] Comment:Desirable HDL: great er than 40 mg/dL Note: This HDL assay may give artificially low results in patients with liver disease. Blood 12/15/2023 11:0 0 AM EDT 12/15/2023 1:24 PM EDT us Neyda Chacko MD LAB BLOOD ORDERABLES Final Resul t [facility] [address] [place] [phone] * Albumin, Random Urine W/Creatinine (12/15/2023 11:00 AM EDT) Creatinine, Urine 75.29 mg/dL [facility] Microalbumin Urine 21.0 mg/L [facility] Microalbum Creatinine Ratio Ur 27.8 <30 ug/mg cr [facility] Comment:Albumin/Creatinine R atio Reference Ranges: Normal: < 30 ug/mg creatinine Microalbuminuria: 30 - 300 ug/mg creatinineClinical Albuminuria: > 300 ug/mg creatinine Urine 12/15/2023 11:0 0 AM EDT 12/15/2023 1:12 PM EDT Neyda Chacko MD LAB URINE ORDERABLES Final Resul t Performing Organization Address [facility] de Phone Number [facility] [address] [place] [phone] * Diabetes Eye Exam (12/25/2022) Pathologist [facility] Eye Exam Normal Normal Historical Provider MD HEALTH MAINTENANCE Final Result * Colonoscopy (08/15/2020) Colonoscopy Normal Normal Historical Provider HEALTH MAINTENANCE Final Result * HPV E6/E7 RFLX LINDSAY 16 18/45 (12/27/2019 1:40 PM EST) HPV mRNA E6/E7 rflx Not Detected Not Detected [facility] Comment: This test was performed using the APTIMA HPV Assay ([employer] This assay detects E6/E7 viral messenger RNA (mRNA) from 14 high-risk HPV types (16,18,31,33,35,39,45,51,52,56,58,59,66,68). The analytical performance characteristics of this assay have been determined by [employer]. The modifications have not been cleared or approved by the FDA. This assay has been validated pursuant to the CLIA regulations and is used for clinical purposes. THIS TEST WAS PERFORMED AT: [facility] [address] [place] [address] [address] [address] REEN MULLINS MD 12/27/2019 1:40 PM EST us Ry Curtis MD HISTORICAL/NON ORDERABLE LABS Fi nal Result [facility] [address] [place] [address], from Last 3 Months or Most Recently Relevant to Health Maintenance Insurance [address] [place] [phone] [facility] OPTIONS (HMO D-SNP) [address] [place] [phone] [facility] [address] [place] [address] 4 [place] [address] Care Teams Refuge Manager Relationship Specialty Start Date End Date Neyda Chacko MD 230 [place] [address] PCP - General Family Medicine 02/22/18 Rj Ellsworth, PharmD [address] [place] [address] Pharmacist Pharmacy 11/20/24
--- OUTSIDE RECORDS SUMMARY | 2025-01-04 13:39 | XMS_ITS | Encounter Summary ---
Author Organization [employer] Address 75 [facility] 7t [place] [address] Care Team Providers Care Photograph Enlarger Name Role Phone Neyda Chacko MD Primary Care Provider [phone] Rj Ellsworth PharmD Unavailable [phone] Encounter Details Date Type Department Care Team ([facility] st Contact Info) Description 06/21/2024 Orders Only [facility] [address] [place] [address] Kat Camarena MD 505 [place] [address] Social History Tobacco Use Types Packs/Day Years [...] Description 03/12/2025 1:00 PM EST Medication Management [facility] 230 [place] [address] Rj Ellsworth, PharmD 230 [place] [address] documented as of this encounter Visit Diagnoses Not on filedocumented in this encounter Additional Health Concerns Assessment Noted Time PHQ-9 Depression Total Score: 7 06/15/19 24 10:57 AM EDT documented as of this encounter Care Teams Photograph Enlarger Relationship Specialty Start Date End Date Neyda Chacko MD [address] [place] [address] PCP - General Family Medicine 02/22/18 Rj Ellsworth, PharmD [address] [place] [address] Pharmacist Pharmacy 11/20/24 documented as of this encounter
--- OUTSIDE RECORDS SUMMARY | 2025-01-04 13:39 | XMS_ITS | Encounter Summary ---
Author Organization [employer] Address 75 [facility] 7t [place] [address] Care Team Providers Care Wire Brush Operator Name Role Phone Neyda Chacko MD Primary Care Provider [phone] Rj Ellsworth PharmD Unavailable [phone] Encounter Details Date Type Department Care Team (Late st Contact Info) Description 03/12/2022 Abstract [facility] 230 [place], [place] [phone] Neyda Chacko MD 230 [place], [place] [phone] Social History Tobacco Use Types Packs/Day Years [...] Description 03/12/2025 1:00 PM EST Medication Management [facility] 230 [place] [address] Rj Ellsworth, PharmD 230 [place] [address] documented as of this encounter Visit Diagnoses Not on filedocumented in this encounter Additional Health Concerns Assessment Noted Time PHQ-9 Depression Total Score: 5 03/12/19 23 10:44 AM EST documented as of this encounter Care Teams Wire Brush Operator Relationship Specialty Start Date End Date Neyda Chacko MD 230 [place] [address] PCP - General Family Medicine 02/22/18 Rj Ellsworth, LiyahD [address] [place] [address] Pharmacist Pharmacy 11/20/24 documented as of this encounter
--- OUTSIDE RECORDS SUMMARY | 2025-01-04 13:39 | XMS_ITS | Encounter Summary ---
Author Organization [employer] Address 75 [facility] 7t [place] [address] Care Team Providers Care Tattoo Identifier Name Role Phone Neyda Chacko MD Primary Care Provider [phone] Rj Ellsworth PharmD Unavailable [phone] Encounter Details Date Type Department Care Team (Late st Contact Info) Description 03/10/2022 Telephone [facility] 230 [place], [place] [phone] Neyda Chacko MD 230 [place], [place] [phone] Social History Tobacco Use Types Packs/Day Years [...] Description 03/12/2025 1:00 PM EST Medication Management [facility] [address] [place] [address] Rj Ellsworth, PharmD 230 [place] [address] documented as of this encounter Visit Diagnoses Not on filedocumented in this encounter Care Teams Tattoo Identifier Relationship Specialty Start Date End Date Neyda Chacko MD 230 [place], [place] [phone] PCP - General Family Medicine 02/22/18 Rj Ellsworth, LiyahD 230 [place] [address] Pharmacist Pharmacy 11/20/24 documented as of this encounter
--- OUTSIDE RECORDS SUMMARY | 2025-01-04 13:40 | XMS_ITS | Encounter Summary ---
Author Organization [employer] Address 75 [facility] 7t [place] [address] Care Team Providers Care Factory Manager Name Role Phone Neyda Chacko MD Primary Care Provider [phone] Rj Ellsworth PharmD Unavailable [phone] Encounter Details Date Type Department Care Team (Late st Contact Info) Description 07/06/2024 Orders Only [facility] 230 [place], [place] [phone] Neyda Chacko MD 230 [place], [place] [phone] Type 2 diabetes mellitus with hyperglycemia, with long-term current use of insulin ([facility]) (Primary Dx) Social History Tobacco Use Types [...] 1:00 PM EST Medication Management [facility] [address] [place] [address] Rj Ellsworth, PharmD 230 [place] [address] documented as of this encounter Visit Diagnoses Diagnosis Type 2 diabetes mellitus with hyperglycemia, with long-term current use of insulin (HCC)- Primary documented in this encounter Additional Health Concerns Assessment Noted Time PHQ-9 Depression Total Score: 7 06/15/19 24 10:57 AM EDT documented as of this encounter Care Teams Factory Manager Relationship Specialty Start Date End Date Neyda Chacko MD [address] [place] [address] PCP - General Family Medicine 02/22/18 Rj Ellsworth, PharmD [address] [place] [address] Pharmacist Pharmacy 11/20/24 documented as of this encounter
--- OUTSIDE RECORDS SUMMARY | 2025-01-04 13:40 | XMS_ITS | Encounter Summary ---
Author Organization [employer] Address [address] [facility] [address] 7t [place] [address] Care Team Providers Care Test Evaluator Name Role Phone Neyda Chacko MD Primary Care Provider [phone] Rj Ellsworth PharmD Unavailable [phone] Encounter Details Date Type Department Care Team (Late st Contact Info) Description 07/31/2024 Orders Only [facility] 230 [place], [place] [phone] Neyda Chacko MD 230 [place], [place] [phone] Social History Tobacco Use Types Packs/Day Years [...] Description 03/12/2025 1:00 PM EST Medication Management [facility] [address] [place] [address] Rj Ellsworth, PharmD [address] [place] [address] documented as of this encounter Visit Diagnoses Not on filedocumented in this encounter Additional Health Concerns Assessment Noted Time PHQ-9 Depression Total Score: 7 06/15/19 24 10:57 AM EDT documented as of this encounter Care Teams Test Evaluator Relationship Specialty Start Date End Date Neyda Chacko MD [address] [place] [address] PCP - General Family Medicine 02/22/18 Rj Ellsworth, PharmD [address] [place] [address] Pharmacist Pharmacy 11/20/24 documented as of this encounter
--- OUTSIDE RECORDS SUMMARY | 2025-01-04 13:40 | XMS_ITS | Encounter Summary ---
Author Organization [employer] Address [address] [facility] [address] 7t [place] [address] Care Team Providers Care Slip Box Changer Name Role Phone Neyda Chacko MD Primary Care Provider [phone] Rj Ellsworth PharmD Unavailable [phone] Encounter Details Date Type Department Care Team (Late st Contact Info) Description 07/28/2024 Orders Only [facility] MEDICINE 230 [place], [place] [phone] Neyda Chacko MD 230 [place], [place] [phone] Social History Tobacco Use Types Packs/Day Years [...] Description 03/12/2025 1:00 PM EST Medication Management [facility] MED[facility]INE [address] [place] [address] Rj Ellsworth, PharmD [address] [place] [address] documented as of this encounter Visit Diagnoses Not on filedocumented in this encounter Additional Health Concerns Assessment Noted Time PHQ-9 Depression Total Score: 7 06/15/19 24 10:57 AM EDT documented as of this encounter Care Teams Slip Box Changer Relationship Specialty Start Date End Date Neyda Chacko MD [address] [place] [address] PCP - General Family Medicine 02/22/18 Rj Ellsworth, PharmD [address] [place] [address] Pharmacist Pharmacy 11/20/24 documented as of this encounter
--- OUTSIDE RECORDS SUMMARY | 2025-01-04 13:40 | XMS_ITS | Encounter Summary ---
Author Organization [employer] Address 75 [facility] 7t [place] [address] Care Team Providers Care Nutritionist Name Role Phone Neyda Chacko MD Primary Care Provider [phone] Rj Ellsworth PharmD Unavailable Encounter Details Date Type Department Care Team (Late st Contact Info) Description 11/02/[address] [facility] 230 [place], [place] [phone] Neyda Chacko MD 230 [place], [place] [phone] Type 2 diabetes mellitus with hyperglycemia, with long-term current use of insulin ([facility]) Social History Tobacco [...] 03/12/2025 1:00 PM EST Medication Management [facility] [address] [place] [address] Rj Ellsworth, PharmD [address] [place] [address] documented as of this encounter Visit Diagnoses Diagnosis Type 2 diabetes mellitus with hyperglycemia, with long-term current use of insulin (HCC) documented in this encounter Additional Health Concerns Assessment Noted Time PHQ-9 Depression Total Score: 7 06/15/19 24 10:57 AM EDT documented as of this encounter Care Teams Nutritionist Relationship Specialty Start Date End Date Neyda Chacko MD [address] [place] [address] PCP - General Family Medicine 02/22/18 Rj Ellsworth, PharmD [address] [place] [address] Pharmacist Pharmacy 11/20/24 documented as of this encounter
--- OUTSIDE RECORDS SUMMARY | 2025-01-04 13:40 | XMS_ITS | Encounter Summary ---
Author Organization [employer] Address 75 [facility] 7t [place] [address] Care Team Providers Care Solar Installation Manager Name Role Phone Neyda Chacko MD Primary Care Provider [phone] Rj Ellsworth PharmD Unavailable [phone] Encounter Details Date Type Department Care Team (Late st Contact Info) Description 07/14/[address] [facility] MED[facility]INE 230 [place], [place] [phone] Neyda Chacko MD 230 [place], [place] [phone] Social History Tobacco Use Types Packs/Day Years [...] Description 03/12/2025 1:00 PM EST Medication Management [facility] 230 [place] [address] Rj Ellsworth, PharmD 230 [place] [address] documented as of this encounter Visit Diagnoses Not on filedocumented in this encounter Additional Health Concerns Assessment Noted Time PHQ-9 Depression Total Score: 7 06/15/19 24 10:57 AM EDT documented as of this encounter Care Teams Solar Installation Manager Relationship Specialty Start Date End Date Neyda Chacko MD [address] [place] [address] PCP - General Family Medicine 02/22/18 Rj Ellsworth, PharmD [address] [place] [address] Pharmacist Pharmacy 11/20/24 documented as of this encounter
--- OUTSIDE RECORDS SUMMARY | 2025-01-04 13:40 | XMS_ITS | Encounter Summary ---
Author Organization [employer] Address 75 [facility] 7t [place] [address] Care Team Providers Care Emergency Room Technician Name Role Phone Neyda Chacko MD Primary Care Provider [phone] Rj Ellsworth PharmD Unavailable [phone] Encounter Details Date Type Department Care Team (Late st Contact Info) Description 09/09/2023 Orders Only [facility] 230 [place], [place] [phone] Neyda Chacko MD 230 [place], [place] [phone] Essential hypertension (Primary Dx); Type 2 diabetes mellitus with hyperglycemia, with long-term current use of insulin ([facility]); Dyslipidemia; Weight loss Social History Tobacco Use [...] Description 03/12/2025 1:00 PM EST Medication Management [facility] [address] [place] [address] Rj Ellsworth, PharmD 230 [place] [address] documented as of this encounter Procedures Procedure Name Priority Date/Time Associated Diagnosis Comments VITAMIN B12/FOLATE, SERUM PANEL Routine 12/15/2023 11:00 AM EDT Type 2 diabetes mellitus with hyperglycemia, with long-term current use of insulin ([facility]) TSH W/REFLEX TO FT4 Routine 12/15/2023 1 1:00 AM EDT Weight loss LIPID PANEL WITH REFLEX TO DIRECT LDL Routine 12/15/2023 11:00 AM EDT Type 2 diabetes mellitus with hyperglycemia, with long-term current use of insulin ([facility]) Dyslipidemia ALBUMIN, RANDOM URINE W/CREATININE Routine 12/15/2023 11:00 AM EDT Type 2 diabetes mellitus with hyperglycemia, with long-term current use of insulin ([facility]) CBC WITH AUTO DIFFERENTIAL Routine 12/15/2023 11:00 AM EDT Weight loss COMPREHENSIVE METABOLIC PANEL Routine 12/15/2023 11:00 AM EDT Essential hypertension documented in this encounter Results * (ABNORMAL) CBC auto differential (12/15/2023 11:00 AM EDT) White Blood Count 2.5(L) 4.8 - 10.8 X10*3/uL [facility] Red Blood Count 4.42 4.20 - 5.50 X10*6/uL [facility] Hemoglobin 12.7 12.0 - 16.0 g/dl [facility] Hematocrit 38.9 37.0 - 47.0 % [facility] Mean Corpuscular Volume 88.0 80.0 - 98.0 fL [facility] Mean Corpuscular Hemoglobin 28.7 27.0 - 33.0 pg [facility] Mean Corpuscular HGB Conc 32.6 31.0 - 35.0 g/dl [facility] Red Cell Distribution Width 12.0 11.0 - 16.0 % [facility] Platelet Count 180 160 - 400 X10*3/uL [facility] Mean Platelet Volume 9.8 9.4 - 12.3 fL [facility] Neutrophils Percent Auto 36.6(L) 45 - 73 % [facility] Imm Gran Pct Auto 0.4 0.0 - 0.4 % [facility] Lymphocytes Percent Auto 49.8(H) 20 - 40 % [facility] Monocytes Percent Auto 8.8 2 - 11 % [facility] Eosinophils Percent Auto 3.6 0 - 4 % [facility] Basophils Percent Auto 0.8 0 - 2 % [facility] NRBC Pct Auto 0.0 0.0 - 0.2 /100WBC [facility] Neutrophils Absolute Auto 0.9(L) 2.0 - 8.3 x10*3/uL [facility] Imm Gran Abs Auto 0.01 0.00 - 0.03 X10*3/uL [facility] Lymphocytes Absolute Auto 1.3 1.2 - 4.9 X10*3/uL [facility] Monocytes Absolute Auto 0.2 0.1 - 1.2 X10*3/uL [facility] [...] Resu lt - Final Performing Organization Address City/[facility]/ZIP Co de Phone Number [facility] [address] [place] [phone] * TSH with Reflex to Free T4 (12/15/2023 11:00 AM EDT) TSH reflex Free T4 2.91 0.32 - 4.0 uIU/mL [facility] Blood 12/15/2023 11:0 0 AM EDT 12/15/2023 1:24 PM EDT Neyda Chacko MD LAB BLOOD ORDERABLES Final Resul t Performing Organization Address [facility]/ZIP Co de Phone Number [facility] [address] [place] [phone] * (ABNORMAL) Comprehensive Metabolic Panel (12/15/2023 11:00 AM EDT) Sodium 142 135 - 145 mmol/L [facility] Potassium 4.0 3.3 - 5.1 mmol/L [facility] Chloride 107 96 - 108 mmol/L [facility] Carbon Dioxide 30(H) 22 - 29 mmol/L [facility] Anion Gap 9(L) 12 - 20 [facility] Urea Nitrogen (BUN) 18(H) 9 - 16 mg/dL [facility] Creatinine, Serum 0.68 0.5 - 1.4 mg/dL [facility] Estimated Glomerular Filt Rate >60 [facility] Comment:NOTE: For -Am erican individuals, multiply the result by 1.210.Chronic Kidney Disease: Estimated GFR < 60 mL/min/1.56d8Rlmqgn Kidney Disease: Estimated GFR < 15 mL/min/1.73m2 Glucose 161(H) 60 - 115 mg/dL [facility] Calcium 9.5 8.4 - 10.2 mg/dL [facility] Bilirubin, Total 0.2 0.0 - 1.0 mg/dL [facility] Aspartate Amino Transferase 34(H) 5 - 31 U/L [facility] Alanine Aminotransferase 49(H) 0 - 31 U/L [facility] Total Protein 6.9 6.5 - 8.0 g/dL [facility] Albumin Level 3.9 3.5 - 5.0 g/dL [facility] Alkaline Phosphatase 59 39 - 117 U/L [facility] Blood Venous blood specimen / Unknown 12/15/2023 11:00 AM EDT 12/15/2023 1:24 PM EDT us Neyda Chacko MD LAB BLOOD ORDERABLES Final Resul t [facility] [address] [place] [phone] [phone] * Albumin, Random Urine W/Creatinine (12/15/2023 11:00 AM EDT) Creatinine, Urine 75.29 mg/dL [facility] Microalbumin Urine 21.0 mg/L [facility] Microalbum Creatinine Ratio Ur 27.8 <30 ug/mg cr [facility] Comment:Albumin/Creatinine R atio Reference Ranges: Normal: < 30 ug/mg creatinine Microalbuminuria: 30 - 300 ug/mg creatinineClinical Albuminuria: > 300 ug/mg creatinine Urine 12/15/2023 11:0 0 AM EDT 12/15/2023 1:12 PM EDT Neyda Chacko MD LAB URINE ORDERABLES Final Resul t Performing Organization Address [facility] Co de Phone Number [facility] [address] [place] [phone] * Lipid Panel with Reflex to Direct LDL (12/15/2023 11:00 AM EDT) Triglycerides 45 <150 mg/dL [facility] Comment:Desirable Triglyceri de: less than 150 mg/dLBorderline High Triglyceride 150-199 mg/dLHigh Triglyceride: 200-499 mg/dLVery High Triglyceride: greater than or equal to 5OO mg/dL Cholesterol 113 <200 mg/dL [facility] Comment:Desirable Cholestero l: less than 200 mg/dLBorderline High Cholesterol: 200-239 mg/dLHigh Cholesterol: greater than 239 mg/dL LDL Cholesterol Calculated 51 <100 mg/dL [facility] Comment:Desirable LDL: less than 100 mg/dLNear Optimal/Above Optimal LDL: 110- 129 mg/dLBorderline High LDL: 130-159 mg/dLHigh LDL: 160-189 mg/dLVery High LDL: greater than or equal to 190 mg/dL HDL Cholesterol 53 >40 mg/dL [facility] Comment:Desirable HDL: great er than 40 mg/dL Note: This HDL assay may give artificially low results in patients with liver disease. Blood 12/15/2023 11:0 0 AM EDT 12/15/2023 1:24 PM EDT Neyda Chacko MD LAB BLOOD ORDERABLES Final Resul t Performing Organization Address [facility]/ZIP Co de Phone Number [facility] [address] [place] [phone] * Vitamin B12 (Cobalamin) and Folate Panel, Serum (12/15/2023 11:00 AM EDT) Vitamin B12 402 200 - 900 pg/mL [facility] Comment:NORMAL 200-900 PG/ML INDETERMINATE 160-199 PG/ML DEFICIENT < 160 PG/ML Folate 12.9 > or = 4.0 ng/mL [facility] Comment:Reference Values:> o r = 4.0 ng/mL< 4.0 ng/mL suggests folate deficiency Methotrexate, aminopterin and folinic acid(leucovorin) are chemotherapeutic agents whose molecularstructures are similar to folate; therefore, the Architectfolate assay cannot be used for patients using these drugs. Blood 12/15/2023 11:0 0 AM EDT 12/15/2023 1:24 PM EDT Neyda Chacko MD LAB BLOOD ORDERABLES Final Resul t [facility] [address] [place] [address] [phone] documented in this encounter Visit Diagnoses Diagnosis Essential hypertension- Primary Unspecified essential hypertension Type 2 diabetes mellitus with hyperglycemia, with long-term current use of insulin (HCC) Dyslipidemia Other and unspecified hyperlipidemia Weight loss Loss of weight documented in this encounter Additional Health Concerns Assessment Noted Time PHQ-9 Depression Total Score: 7 06/15/19 24 10:57 AM EDT documented as of this encounter Care Teams Emergency Room Technician Relationship Specialty Start Date End Date Neyda Chacko MD [address] [place] [address] PCP - General Family Medicine 02/22/18 Rj Ellsworth, LiyahD [address] [place] [address] Pharmacist Pharmacy 11/20/24 documented as of this encounter
--- OUTSIDE RECORDS SUMMARY | 2025-01-04 13:40 | XMS_ITS | Encounter Summary ---
Author Organization [employer] Address 75 [facility] 7t [place] [address] Care Team Providers Care Hitting Coach Name Role Phone Neyda Chacko MD Primary Care Provider [phone] Rj Ellsworth PharmD Unavailable [phone] Encounter Details Date Type Department Care Team (Late st Contact Info) Description 01/26/2023 Orders Only [facility] MEDICINE 230 [place], [place] [phone] Neyda Chacko MD 230 [place], [place] [phone] Social History Tobacco Use Types Packs/Day Years [...] Description 03/12/2025 1:00 PM EST Medication Management [facility] [address] [place] [address] Rj Ellsworth, PharmD 230 [place] [address] documented as of this encounter Visit Diagnoses Not on filedocumented in this encounter Additional Health Concerns Assessment Noted Time PHQ-9 Depression Total Score: 5 03/12/19 23 10:44 AM EST documented as of this encounter Care Teams Hitting Coach Relationship Specialty Start Date End Date Neyda Chacko MD [address] [place] [address] PCP - General Family Medicine 02/22/18 Rj Ellsworth, PharmD [address] [place] [address] Pharmacist Pharmacy 11/20/24 documented as of this encounter
--- OUTSIDE RECORDS SUMMARY | 2025-01-04 13:40 | XMS_ITS | Encounter Summary ---
Author Organization [employer] Address 75 [facility] 7t [place] [address] Care Team Providers Care Customs Import Specialist Name Role Phone Neyda Chacko MD Primary Care Provider Rj Ellsworth PharmD Unavailable [phone] Reason for Visit * Reason Onset Date Comments Durable Medical Equipment 01/26/2023 Encounter Details Date Type Department Care Team (Late st Contact Info) Description 01/26/2023 Telephone [facility] MEDICINE 230 [place], [place] [phone] Neyda Chacko MD 230 [place], [place] [phone] Durable Medical Equipment Social History Tobacco Use [...] readings would like the patient to use [employer] documented in this encounter Plan of Treatment Upcoming Encounters Date Type Department Care Team (Late st Contact Info) Description 03/12/2025 1:00 PM EST Medication Management [facility]INE [address] [place] [address] Rj Ellsworth, LiyahD [address] [place] [address] documented as of this encounter Visit Diagnoses Not on filedocumented in this encounter Additional Health Concerns Assessment Noted Time PHQ-9 Depression Total Score: 5 03/12/19 23 10:44 AM EST documented as of this encounter Care Teams Customs Import Specialist Relationship Specialty Start Date End Date Neyda Chacko MD [address] [place] [address] PCP - General Family Medicine 02/22/18 Rj Ellsworth, PharmD 230 [place] [address] Pharmacist Pharmacy 11/20/24 documented as of this encounter
--- OUTSIDE RECORDS SUMMARY | 2025-01-04 13:40 | XMS_ITS | Clinical Summary ---
Author Organization [address] [facility] Address [address] [place] [address] Phone Care Team Providers Care Manager Of International Name Role Phone Physician, Pcp Unknown Primary [...] Last Done Comments Breast Cancer Screening 1958 Colorectal Cancer Screening: Colonoscopy 1958 Diabetes: Annual GFR (Glomerular Filtration Rate) 1958 Diabetes: Annual Foot Exam 1968 Diabetes: Annual Retina Eye Exam 1968 Hepatitis A Vaccines (1 of 2 - Risk 2-dose series) 1977 RSV Immunization Adult Patients (1 - Risk 50-74 years 1-dose series) 2008 Cholesterol Screening (Lipid Panel) 12/27/2023 Falls Risk Assessment 12/27/2023 Hepatitis C Screening 12/27/2023 Medicare Annual Wellness Visit 12/27/2023 Osteoporosis Screening (Bone Density Screening) 12/27/2023 Social Influencers of Health Screening 12/27/2023 Depression Screening 02/23/2024 Diabetes: Annual Urine Albumin-Creatinine Ratio (uACR) 04/04/2024 Hypertension/CHF/CAD Annual BMP Blood Test 04/04/2024 Diabetes: Blood Sugar Control Test (HGBA1C) 09/27/2024 03/30/2024 COVID-19 Vaccine ( season) 2024 12/21/2023, 01/06/2022, 07/08/2021, Additional history exists Influenza Vaccine (#1) 2024 , 01/06/2022, 01/13/2021, Additional history exists DTaP,Tdap,and Td Vaccines (5 - Td or [...] age to complete this topic Insurance , [address] [address] [facility] [employer] Member Subscriber Plan / Payer (Ef fective 2024-Present) Name:Jaimee Guzman I Relation to Subscriber:Self Name:Jaimee Guzman I Payer ID:[id number] Group ID:Not on file Type:Not on file Address: [address] [address] Care Teams Manager Of International Relationship Specialty Start Date End Date Physician, Pcp Unknown PCP - General 03/20/24
--- OUTSIDE RECORDS SUMMARY | 2025-01-04 13:40 | XMS_ITS | Encounter Summary ---
Author Organization [employer] Address [address] [facility] 7t [place] [address] Care Team Providers Care Director Home Health Name Role Phone Neyda Chacko MD Primary Care Provider [phone] Rj Ellsworth PharmD Unavailable [phone] Reason for Referral * Consultation (Routine) - Closed Specialty Diagnoses / Procedures Referred By Rob hagan Referred To Contact Orthopaedic Surgery Diagnoses Chronic right shoulder pain Neyda Chacko MD [address] [place] [address] Phone: tel: fax: [facility] [address] [place] [address] Phone: tel: Referral ID Status Reason Start Date Expiration Date V isits Requested Visits Authorized [id number] Closed Specialty Services Required 05/20/2024 05/20/2025 1 1 * Consultation (Routine) - Closed Specialty Diagnoses / Procedures Referred By Rob hagan Referred To Contact Physical Therapy Diagnoses Chronic right shoulder pain Neyda Chacko MD [address] [place] [address] Phone: tel: fax: [facility] [address] [place] [address] Phone: tel: fax: Referral ID Status Reason Start Date Expiration Date V isits Requested Visits Authorized [id number] Closed Specialty Services Required 05/20/2024 05/20/2025 1 1 Encounter Details Date Type Department Care Team (Late st Contact Info) Description 05/20/2024 Orders Only [facility] MEDICINE [address] [place] [address] Neyda Chacko MD [address] [place] [address] Chronic right shoulder pain (Primary Dx) Social [...] 1:00 PM EST Medication Management [facility] [address] [place] [address] Rj Ellsworth, PharmD [address] [place] [address] Pending Results Name Type Priority Associated Diagnoses Date /Time Referral to Orthopaedic Surgery Outpatient Referral Routine Chronic right shoulder pain 07/06/2024 Scheduled Orders Name Type Priority Associated Diagnoses [...] documented as of this encounter Care Teams Director Home Health Relationship Specialty Start Date End Date Neyda Chacko MD [address] [place] [address] PCP - General Family Medicine 02/22/18 Rj Ellsworth, PharmD [address] [place] [address] Pharmacist Pharmacy 11/20/24 documented as of this encounter
--- OUTSIDE RECORDS SUMMARY | 2025-01-04 13:40 | XMS_ITS | Encounter Summary ---
Author Organization [employer] Address 75 [facility] 7t [place] [address] Care Team Providers Care Head Of Measurement & Insights Name Role Phone Neyda Chacko MD Primary Care Provider [phone] Rj Ellsworth PharmD Unavailable [phone] Reason for Visit * Reason Onset Date Comments Appointment Request 02/19/2023 Encounter Details Date Type Department Care Team (Late st Contact Info) Description 02/19/2023 Telephone [facility] MEDICINE [address] [place], [place] [phone] Neyda Chacko MD [address] [place], [place] [phone] Appointment Request Social History Tobacco Use Types [...] daughter requesting to reschedule appt for 02/19 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 HTN *IP* documented in this encounter Plan of Treatment Upcoming Encounters Date Type Department Care Team (Late st Contact Info) Description 03/12/2025 1:00 PM EST Medication Management [facility] MEDICINE [address] [place] [address] Rj Ellsworth, PharmD [address] [place] [address] documented as of this encounter Visit Diagnoses Not on filedocumented in this encounter Additional Health Concerns Assessment Noted Time PHQ-9 Depression Total Score: 5 03/12/19 23 10:44 AM EST documented as of this encounter Care Teams Head Of Measurement & Insights Relationship Specialty Start Date End Date Neyda Chacko MD [address] [place] [address] PCP - General Family Medicine 02/22/18 Rj Ellsworth, PharmD [address] [place] [address] Pharmacist Pharmacy 11/20/24 documented as of this encounter
--- OUTSIDE RECORDS SUMMARY | 2025-01-04 13:40 | XMS_ITS | Encounter Summary ---
Author Organization [employer] Address 75 [facility] 7t [place] [address] Care Team Providers Care Drug Abuse Social Worker Name Role Phone Neyda Chacko MD Primary Care Provider [phone] Rj Ellsworth PharmD Unavailable Reason for Visit * Reason Onset Date Comments Med Refill 10/27/2023 Encounter Details Date Type Department Care Team (Late st Contact Info) Description 10/27/2023 Telephone [facility] MEDICINE [address] [place], [place] [phone] Neyda Chacko MD [address] [place], [place] [phone] Med Refill Social History Tobacco Use Types [...] MG/3ML solution pen-injector To be sent to: [facility] - [place], [place] - [address] [facility] documented in this encounter Plan of Treatment Upcoming Encounters Date Type Department Care Team (Late st Contact Info) Description 03/12/2025 1:00 PM EST Medication Management [facility] [address] [place] [address] Rj Ellsworth, PharmD [address] [place] [address] documented as of this encounter Visit Diagnoses Not on filedocumented in this encounter Additional Health Concerns Assessment Noted Time PHQ-9 Depression Total Score: 7 06/15/19 24 10:57 AM EDT documented as of this encounter Care Teams Drug Abuse Social Worker Relationship Specialty Start Date End Date Neyda Chacko MD [address] [place] [address] PCP - General Family Medicine 02/22/18 Rj Ellsworth, PharmD [address] [place] [address] Pharmacist Pharmacy 11/20/24 documented as of this encounter
== END 2025-01-04 11:59 | disposition home or self-care (01) ==
LOC: HO.HOS 10:57
PROVIDERS: PCP Family Medicine; Visit Provider Physician Assistant
DX: E11.618 Type 2 diabetes mellitus with other diabetic arthropathy (principal); M75.01 Adhesive capsulitis of right shoulder; M75.101 Unspecified rotator cuff tear or rupture of right shoulder, not specified as traumatic
CPT/HCPCS: 99213

== ENCOUNTER → 2025-01-04 10:56 | Outpatient (BNVA) | payer OTHER, SELFPAY | PROVIDERS: PCP Family Medicine; Visit Provider Physician Assistant | DX: E11.618 Type 2 diabetes mellitus with other diabetic arthropathy (principal); M75.101 Unspecified rotator cuff tear or rupture of right shoulder, not specified as traumatic | CPT/HCPCS: 99212 ==

== ENCOUNTER 2025-02-09 10:56 | Outpatient (AMB) | payer OTHER, SELFPAY ==
--- NOTE | 2025-02-09 11:05 | MHC.OFFVIS ---
Vital Signs 02/09/25 11:06 Height 5 ft 2 in Weight 138 lb 14.259 oz BMI 25.4 BP 104/62 Blood Pressure Location Rt brachial Position Sitting Pulse 71 Intake Visit Reasons: 6 mo f/u Gerd, paresis, CIC Intake Note: Jaimee presents in the office as a 6 month follow up GERD Gastroparesis and CIC. CC: She states that she does not have any concerns today. Outside Parts Salesman Required: Yes Allergies pioglitazone (From Actos) Allergy (Mild, Verified 02/09/25 11:09) EDEMA, unknown HPI HPI 6 mo f/u Gerd, paresis, CIC: Details: Assessment & Plan (1) Gastroparesis: Code(s): K31.84 - Gastroparesis Category: Medical (2) GERD (gastroesophageal reflux disease): Code(s): K21.9 - Gastro-esophageal reflux disease without esophagitis Category: Medical (3) Irritable bowel syndrome with both constipation and diarrhea: Code(s): K58.2 - Mixed irritable bowel syndrome Category: Medical (4) Encounter for colorectal cancer screening using Cologuard test: Comment: 06/2024 negative Cologuard repeat in 3 years Code(s): Z12.11 - Encounter for screening for malignant neoplasm of colon; Z12.12 - Encounter for screening for malignant neoplasm of rectum Category: Medical Plan Bruneian #daughter translates per patient request She continues on her carafate, pantoprazole bid, senna and reglan. She continues to do well on this GI regimen. The colooguard was negative. ROV 6 mos. 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 Obesity with body mass index of 30.0-39.9 Hypoglycemia associated with type 2 diabetes mellitus Diabetes type 2, uncontrolled Heart murmur COVID-19 vaccine administered Diabetic neuropathy associated with type 2 diabetes mellitus Background diabetic retinopathy associated with type 2 diabetes mellitus PATRICIA (obstructive sleep apnea) Hemorrhoids Asthma Type 2 diabetes mellitus with mild nonproliferative diabetic retinopathy without macular edema, bilateral Type 2 diabetes mellitus with hyperglycemia, with long-term current use of insulin Essential hypertension Dyslipidemia Menometrorrhagia Polypharmacy Depression Allergic rhinitis Venous insufficiency Anemia Obesity Constipation HTN (hypertension) Surgical History History of esophagogastroduodenoscopy (EGD) Hx of colonoscopy History of bilateral tubal ligation Family History Father No problems noted. Mother Heart disease HTN (hypertension) Diabetes Pacemaker Depression Family/Other Diabetes Daughter Cancer Social History Household Members: None Are you a primary critical care nurse to a significant other at home: No Do you presently have visiting nurse or other home services: No Alcohol intake: never Patient Tobacco Use Status: Never used Tobacco Sexual orientation: Straight/Heterosexual Gender identity: Female Female Reproductive History Menstrual Age of Menarche: 10 Physical Exam Vital Signs: Last Vital Signs Pulse 71 02/09/25 11:06 BP 104/62 02/09/25 11:06 BMI result Body Mass Index 25.4 Assessment & Plan Assessment & Plan (1) GERD (gastroesophageal reflux disease): Code(s): K21.9 - Gastro-esophageal reflux disease without esophagitis Category: Medical (2) Gastroparesis: Code(s): K31.84 - Gastroparesis Category: Medical (3) Irritable bowel syndrome with both constipation and diarrhea: Code(s): K58.2 - Mixed irritable bowel syndrome Category: Medical Plan Bruneian # to chair alive She continues on her carafate, pantoprazole bid, senna and reglan. She continues to do well on all of her medications in his satisfied with her GI regimen. Medications: Changed From sucralfate (Carafate) 20 mL PO DAILY 420 mL 3RF K29.70 - Gastritis, unspecified, without bleeding, R11.2 - Nausea with vomiting, unspecified To sucralfate 20 mL PO DAILY 420 mL 3RF K29.70 - Gastritis, unspecified, without bleeding, R11.2 - Nausea with vomiting, unspecified Refilled pantoprazole 40 mg PO BID 180 tabs 2RF K21.9 - Gastro-esophageal reflux disease without esophagitis, K29.70 - Gastritis, unspecified, without bleeding sennosides (senna) 17.2 mg (2 x 8.6 mg) PO BEDTIME PRN 180 tabs 0RF for constipation metoclopramide HCl 10 mg PO QIDACHS 120 tabs 6RF K31.84 - Gastroparesis Coding Level of Care Code Est Pt Level 3 (12115) Diagnoses GERD (gastroesophageal reflux disease) K21.9 Gastroparesis K31.84 Irritable bowel syndrome with both constipation and diarrhea K58.2
[2025-02-09 11:06] VITALS: BP 104/62; PULSE 71; BMI 25.4
--- OUTSIDE RECORDS SUMMARY | 2025-02-09 12:49 | XMS_ITS | Encounter Summary ---
Author Organization [employer] [facility] Address 75 [facility] 7t [place] [address] Care Team Providers Care Continuity Reader Name Role Phone Neyda Chacko MD Primary Care Provider [phone] Rj Ellsworth PharmD Unavailable [phone] Encounter Details Date Type Department Care Team (Latest Contact Info) Description 05/21/2020 Abstract [facility] CONVERSIONS Dental, Provider, DDS Social History [...] Care Team (Late st Contact Info) Description 03/09/2025 1:30 PM EST Medication Management [facility] MEDICINE [address] [place] [address] Rj Ellsworth, PharmD 230 [place] [address] documented as of this encounter Visit Diagnoses Not on filedocumented in this encounter Care Teams Continuity Reader Relationship Specialty Start Date End Date Neyda Chacko MD [address] [place] [address] PCP - General Family Medicine 02/22/18 Rj Ellsworth, PharmD [address] [place] [address] Pharmacist Pharmacy 11/20/24 documented as of this encounter
--- OUTSIDE RECORDS SUMMARY | 2025-02-09 12:49 | XMS_ITS | Encounter Summary ---
Author Organization [facility] Address 75 [facility] 7t [place] [address] Care Team Providers Care Scrap Collector Name Role Phone Neyda Chacko MD Primary Care Provider [phone] Rj Ellsworth PharmD Unavailable [phone] Encounter Details Date Type Department Care Team (Latest Contact Info) Description 01/03/2019 Abstract [facility] CONVERSIONS Dental, Provider, DDS Social History Tobacco [...] Description 03/09/2025 1:30 PM EST Medication Management [facility] MEDICINE [address] [place] [address] Rj Ellsworth, PharmD [address] [place] [address] documented as of this encounter Visit Diagnoses Not on filedocumented in this encounter Care Teams Scrap Collector Relationship Specialty Start Date End Date Neyda Chacko MD [address] [place] [address] PCP - General Family Medicine 02/22/18 Rj Ellsworth PharmD [address] [place] [address] Pharmacist Pharmacy 11/20/24 documented as of this encounter
--- OUTSIDE RECORDS SUMMARY | 2025-02-09 12:49 | XMS_ITS | Encounter Summary ---
Author Organization [facility] Address [address] [place] [address] 7t [place] [address] Care Team Providers Care Batterboard Setter Name Role Phone Neyda Chacko MD Primary Care Provider [phone] Rj Ellsworth PharmD Unavailable [phone] Encounter Details Date Type Department Care Team (Late st Contact Info) Description 03/06/2022 Orders Only [facility] MEDICINE [address] [place] [address] Misa Tillman LPN Social History Tobacco Use [...] Description 03/09/2025 1:30 PM EST Medication Management [facility] MEDICINE [address] [place] [address] Rj Ellsworth, PharmD [address] [place], [place] [phone] documented as of this encounter Visit Diagnoses Not on filedocumented in this encounter Care Teams Batterboard Setter Relationship Specialty Start Date End Date Neyda Chacko MD [address] [place], [place] [phone] PCP - General Family Medicine 02/22/18 Rj Ellsworth, PharmD [address] [place] [address] Pharmacist Pharmacy 11/20/24 documented as of this encounter
--- OUTSIDE RECORDS SUMMARY | 2025-02-09 12:49 | XMS_ITS | Encounter Summary ---
Author Organization [facility] [facility] Address [address] [place] [address] 7t [place] [address] Care Team Providers Care Warehouse Shipper Name Role Phone Neyda Chacko MD Primary Care Provider [phone] Rj Ellsworth PharmD Unavailable [phone] Reason for Visit * Reason Comments Med Refill Encounter Details Date Type Department Care Team (Late st Contact Info) Description 01/28/2022 Refill [facility] MEDICINE [address] [place], [place] [phone] [facility] [address] [place], [place] [phone] Type 2 diabetes mellitus with hyperglycemia (CMS/HCC) [...] Description 03/09/2025 1:30 PM EST Medication Management [facility] MEDICINE [address] [place], [place] [phone] Rj Ellsworth, PharmD [address] [place] [address] documented as of this encounter Visit Diagnoses Diagnosis Type 2 diabetes mellitus with hyperglycemia (HCC) documented in this encounter Care Teams Warehouse Shipper Relationship Specialty Start Date End Date Neyda Chacko MD [address] [place], [place] [phone] PCP - General Family Medicine 02/22/18 Rj Ellsworth, Stephane [address] [place] [address] Pharmacist Pharmacy 11/20/24 documented as of this encounter
--- OUTSIDE RECORDS SUMMARY | 2025-02-09 12:50 | XMS_ITS | Clinical Summary ---
Author Organization [facility] Address [address] [place] [address] Phone Care Team Providers Care Golf Ball Inspector Name Role Phone Physician, Pcp Unknown [...] age to complete this topic Insurance , [address] [address] [facility] OPTIONS Member Subscriber Plan / Payer (Ef fective 2024-Present) Name:Jaimee Guzman I Relation to Subscriber:Self Name:Jaimee Guzman I Payer ID:[id number] Group ID:Not on file Type:Not on file Address: [address] [address] Care Teams Golf Ball Inspector Relationship Specialty Start Date End Date Physician, Pcp Unknown PCP - General 03/20/24
--- OUTSIDE RECORDS SUMMARY | 2025-02-09 12:50 | XMS_ITS | Encounter Summary ---
Author Organization [employer] Address 75 [facility] 7t [place] [address] Care Team Providers Care Interlocking Tower Operator Name Role Phone Neyda Chacko MD Primary Care Provider [phone] Rj Ellsworth PharmD Unavailable [phone] Encounter Details Date Type Department Care Team ([facility] st Contact Info) Description 06/21/2024 Orders Only [facility] MED & PEDS [address] [place] [address] Kat Camarena MD [address] [place] [address] Social History Tobacco Use Types Packs/Day Years [...] 1:30 PM EST Medication Management [facility] MEDICINE [address] [place] [address] Rj Ellsworth, PharmD [address] [place] [address] documented as of this encounter Visit Diagnoses Not on filedocumented in this encounter Additional Health Concerns Assessment Noted Time PHQ-9 Depression Total Score: 7 06/15/19 24 10:57 AM EDT documented as of this encounter Care Teams Interlocking Tower Operator Relationship Specialty Start Date End Date Neyda Chacko MD [address] [place] [address] PCP - General Family Medicine 02/22/18 Rj Ellsworth, PharmD [address] [place] [address] Pharmacist Pharmacy 11/20/24 documented as of this encounter
--- OUTSIDE RECORDS SUMMARY | 2025-02-09 12:50 | XMS_ITS | Encounter Summary ---
Author Organization [employer] Address 75 [facility] 7t [place] [address] Care Team Providers Care Management Developer Name Role Phone Neyda Chacko MD Primary Care Provider [phone] Rj Ellsworth PharmD Unavailable [phone] Encounter Details Date Type Department Care Team (Late st Contact Info) Description 12/16/2023 Orders Only [facility] MEDICINE [address] [place], [place] [phone] Neyda Chacko MD [address] [place], [place] [phone] Leukopenia, unspecified type (Primary Dx) Social History [...] 1:30 PM EST Medication Management [facility] MEDICINE [address] [place] [address] Rj Ellsworth, PharmD [address] [place] [address] documented as of this encounter Procedures Procedure Name Priority Date/Time Associated Diagnosis Comments PATHOLOGIST REVIEW - CBC Routine 12/17/2023 12:02 PM EDT Leukopenia, unspecified type CBC WITH AUTO DIFFERENTIAL Routine 12/17/2023 12:02 PM EDT Leukopenia, unspecified type documented in this encounter Results * Pathologist Review - CBC (12/17/2023 12:02 PM EDT) Pathologist Review - CBC SEE NOTE [facility] Comment:Peripheral blood joshua ments are normal appearing.- Yash Moreno M.D. Pathology Blood Venous blood specimen / Unknown 12/17/2023 12:02 PM EDT 12/17/2023 1:19 PM EDT us Neyda Chacko MD LAB BLOOD ORDERABLES Final Resul t [facility] [address] [place], [place] [phone] * (ABNORMAL) CBC auto differential (12/17/2023 12:02 PM EDT) White Blood Count 3.7(L) 4.8 - 10.8 X10*3/uL [facility] Red Blood Count 4.47 4.20 - 5.50 X10*6/uL [facility] Hemoglobin 13.0 12.0 - 16.0 g/dl [facility] Hematocrit 38.4 37.0 - 47.0 % [facility] Mean Corpuscular Volume 85.9 80.0 - 98.0 fL [facility] Mean Corpuscular Hemoglobin 29.1 27.0 - 33.0 pg [facility] Mean Corpuscular HGB Conc 33.9 31.0 - 35.0 g/dl [facility] Red Cell Distribution Width 11.9 11.0 - 16.0 % [facility] Platelet Count 209 160 - 400 X10*3/uL [facility] Mean Platelet Volume 9.7 9.4 - 12.3 fL [facility] Neutrophils Percent Auto 55.4 45 - 73 % [facility] Imm Gran Pct Auto 0.3 0.0 - 0.4 % [facility] Lymphocytes Percent Auto 33.4 20 - 40 % [facility] Monocytes Percent Auto 8.0 2 - 11 % [facility] Eosinophils Percent Auto 2.4 0 - 4 % [facility] Basophils Percent Auto 0.5 0 - 2 % [facility] NRBC Pct Auto 0.0 0.0 - 0.2 /100WBC [facility] Neutrophils Absolute Auto 2.1 2.0 - 8.3 x10*3/uL [facility] Imm Gran Abs Auto 0.01 0.00 - 0.03 X10*3/uL [facility] Lymphocytes Absolute Auto 1.3 1.2 - 4.9 X10*3/uL [facility] Monocytes Absolute Auto 0.3 0.1 - 1.2 X10*3/uL [facility] Eosinophils Absolute Auto 0.1 0.0 - 0.4 X10*3/uL [facility] Basophils Absolute Auto 0.0 0.0 - 0.2 X10*3/uL [facility] NRBC Abs Auto 0.000 0.0 - 0.012 X10*3/uL [facility] Blood Venous blood specimen / Unknown 12/17/2023 12:02 PM EDT 12/17/2023 1:19 PM EDT us Neyda Chacko MD LAB BLOOD ORDERABLES Final Resul t [facility] [address] [place] [address] [phone] documented in this encounter Visit Diagnoses Diagnosis Leukopenia, unspecified type- Primary documented in this encounter Additional Health Concerns Assessment Noted Time PHQ-9 Depression Total Score: 7 06/15/19 24 10:57 AM EDT documented as of this encounter Care Teams Management Developer Relationship Specialty Start Date End Date Neyda Chacko MD [address] [place] [address] PCP - General Family Medicine 02/22/18 Rj Ellsworth, Stephane [address] [place] [address] Pharmacist Pharmacy 11/20/24 documented as of this encounter
--- OUTSIDE RECORDS SUMMARY | 2025-02-09 12:50 | XMS_ITS | Encounter Summary ---
Author Organization [employer] Address [address] [facility] 7t [place] [address] Care Team Providers Care Home Comfort Advisor Name Role Phone Neyda Chacko MD Primary Care Provider [phone] Rj Ellsworth PharmD Unavailable [phone] Reason for Referral * Consultation (Routine) - Closed Specialty Diagnoses / Procedures Referred By Rob hagan Referred To Contact Orthopaedic Surgery Diagnoses Chronic right shoulder pain Neyda Chacko MD [address] [place] [address] Phone: tel: fax: [facility] Orthopedics [address] [place] [address] [address] [place] [address] Phone: tel: Referral ID Status Reason Start Date Expiration Date V isits Requested Visits Authorized [id number] Closed Specialty Services Required 05/20/2024 05/20/2025 1 1 * Consultation (Routine) - Closed Specialty Diagnoses / Procedures Referred By Rob hagan Referred To Contact Physical Therapy Diagnoses Chronic right shoulder pain Neyda Chacko MD [address] [place] [address] Phone: tel: fax: [facility] Physical Therapy [address] [place] [address] Phone: tel: fax: Referral ID Status Reason Start Date Expiration Date V isits Requested Visits Authorized [id number] Closed Specialty Services Required 05/20/2024 05/20/2025 1 1 Encounter Details Date Type Department Care Team (Late st Contact Info) Description 05/20/2024 Orders Only [facility] MEDICINE [address] [place] [address] Neyda Chacko MD [address] [place] [address] Chronic right shoulder pain (Primary Dx) Social [...] Description 03/09/2025 1:30 PM EST Medication Management [facility] MED[facility]INE [address] [place] [address] Rj Ellsworth, PharmD [address] [place] [address] Pending Results Name Type Priority Associated Diagnoses [...] documented as of this encounter Care Teams Home Comfort Advisor Relationship Specialty Start Date End Date Neyda Chacko MD [address] [place], [place] [phone] PCP - General Family Medicine 02/22/18 Rj Ellsworth, PharmD [address] [place] [address] Pharmacist Pharmacy 11/20/24 documented as of this encounter
--- OUTSIDE RECORDS SUMMARY | 2025-02-09 12:50 | XMS_ITS | Encounter Summary ---
Author Organization [employer] Address [address] [facility] 7t [place] [address] Care Team Providers Care Client Insights Consultant Name Role Phone Neyda Chacko MD Primary Care Provider [phone] Rj Ellsworth PharmD Unavailable [phone] Reason for Visit * Reason Onset Date Comments Med Refill 10/27/2023 Encounter Details Date Type Department Care Team (Late st Contact Info) Description 10/27/2023 Telephone [facility] MEDICINE [address] [place], [place] [phone] Neyda Chacko MD [address] [place], [place] [phone] Med Refill Social History Tobacco Use Types [...] MG/3ML solution pen-injector To be sent to: [facility] [place], [place] - [address] [facility] documented in this encounter Plan of Treatment Upcoming Encounters Date Type Department Care Team (Late st Contact Info) Description 03/09/2025 1:30 PM EST Medication Management [facility] MEDICINE [address] [place] [address] Rj Ellsworth, PharmD [address] [place] [address] documented as of this encounter Visit Diagnoses Not on filedocumented in this encounter Additional Health Concerns Assessment Noted Time PHQ-9 Depression Total Score: 7 06/15/19 24 10:57 AM EDT documented as of this encounter Care Teams Client Insights Consultant Relationship Specialty Start Date End Date Neyda Chacko MD [address] [place] [address] PCP - General Family Medicine 02/22/18 Rj Ellsworth, PharmD [address] [place] [address] Pharmacist Pharmacy 11/20/24 documented as of this encounter
--- OUTSIDE RECORDS SUMMARY | 2025-02-09 12:50 | XMS_ITS | Encounter Summary ---
Author Organization [employer] Address [address] [facility] 7t [place] [address] Care Team Providers Care Fine Sander Name Role Phone Neyda Chacko MD Primary Care Provider [phone] Rj Ellsworth PharmD Unavailable [phone] Encounter Details Date Type Department Care Team (Late st Contact Info) Description 07/06/2024 Orders Only [facility] MEDICINE [address] [place], [place] [phone] Neyda Chacko MD [address] [place], [place] [phone] Type 2 diabetes mellitus with hyperglycemia, with long-term current use of insulin ([facility]) (Primary Dx) Social History Tobacco Use Types [...] Description 03/09/2025 1:30 PM EST Medication Management [facility] MEDICINE [address] [place] [address] Rj Ellsworth, LiyahD [address] [place] [address] documented as of this encounter Visit Diagnoses Diagnosis Type 2 diabetes mellitus with hyperglycemia, with long-term current use of insulin (HCC)- Primary documented in this encounter Additional Health Concerns Assessment Noted Time PHQ-9 Depression Total Score: 7 06/15/19 24 10:57 AM EDT documented as of this encounter Care Teams Fine Sander Relationship Specialty Start Date End Date Neyda Chacko MD [address] [place] [address] PCP - General Family Medicine 02/22/18 Rj Ellsworth, PharmD [address] [place] [address] Pharmacist Pharmacy 11/20/24 documented as of this encounter
--- OUTSIDE RECORDS SUMMARY | 2025-02-09 12:50 | XMS_ITS | Encounter Summary ---
Author Organization [facility] Address [address] [facility] 7t [place] [address] Care Team Providers Care Agricultural Commodities Grader Name Role Phone Neyda Chacko MD Primary Care Provider [phone] Rj Ellsworth PharmD Unavailable [phone] Reason for Referral * Consultation (Routine) - Authorized Specialty Diagnoses / Procedures Referred By Rob hagan Referred To Contact Pharmacy Diagnoses Type 2 diabetes mellitus with hyperglycemia, with long-term current use of insulin (HCC) Essential hypertension Neyda Chacko MD [address] [place] [address] Phone: tel: fax: Referral ID Status Reason Start Date Expiration Date Visits Requested Visits Authorized [id number] Authorized Consult and Treat 10/06/2024 10/06/2025 6 6 Encounter Details Date Type Department Care Team (Late st Contact Info) Description 10/06/2024 Orders Only [facility] [address] [place], [place] [phone] Neyda Chacko MD [address] [place], [place] [phone] Type 2 diabetes mellitus with hyperglycemia, with [...] Description 03/09/2025 1:30 PM EST Medication Management [facility] [address] [place] [address] Rj Ellsworth, PharmD [address] [place] [address] Scheduled Referrals Name Type Priority Associated Diagnoses Orde r Schedule Referral to Pharmacy CD Outpatient Referral Routine Type 2 diabetes mellitus with hyperglycemia, with long-term current use of insulin ([facility]) Essential hypertension Ordered: 10/06/2024 documented as of this encounter Visit Diagnoses Diagnosis Type 2 diabetes mellitus with hyperglycemia, with long-term current use of insulin ([facility])- Primary Essential hypertension Unspecified essential hypertension documented in this encounter Additional Health Concerns Assessment Noted Time PHQ-9 Depression Total Score: 8 08/30/19 25 10:35 AM EDT documented as of this encounter Care Teams Agricultural Commodities Grader Relationship Specialty Start Date End Date Neyda Chacko MD [address] [place] [address] PCP - General Family Medicine 02/22/18 Rj Ellsworth, Stephane [address] [place] [address] Pharmacist Pharmacy 11/20/24 documented as of this encounter
--- OUTSIDE RECORDS SUMMARY | 2025-02-09 12:50 | XMS_ITS | Encounter Summary ---
Author Organization [employer] Address [address] [facility] 7t [place] [address] Care Team Providers Care Drag Out Worker Name Role Phone Neyda Chacko MD Primary Care Provider [phone] Rj Ellsworth PharmD Unavailable [phone] Encounter Details Date Type Department Care Team (Late st Contact Info) Description 07/14/2023 Orders Only [facility] MEDICINE [address] [place], [place] [phone] Neyda Chacko MD [address] [place], [place] [phone] Social History Tobacco Use Types Packs/Day Years [...] Description 03/09/2025 1:30 PM EST Medication Management [facility] MEDICINE [address] [place] [address] Rj Ellsworth, PharmD [address] [place] [address] documented as of this encounter Visit Diagnoses Not on filedocumented in this encounter Additional Health Concerns Assessment Noted Time PHQ-9 Depression Total Score: 7 06/15/19 24 10:57 AM EDT documented as of this encounter Care Teams Drag Out Worker Relationship Specialty Start Date End Date Neyda hCacko MD [address] [place] [address] PCP - General Family Medicine 02/22/18 Rj Ellsworth, PharmD [address] [place] [address] [phone] Pharmacist Pharmacy 11/20/24 documented as of this encounter
--- OUTSIDE RECORDS SUMMARY | 2025-02-09 12:50 | XMS_ITS | Encounter Summary ---
Author Organization [employer] Address [address] [facility] 7t [place] [address] Care Team Providers Care Articulation Officer Name Role Phone Neyda Chacok MD Primary Care Provider [phone] Rj Ellsworth PharmD Unavailable [phone] Reason for Visit * Reason Onset Date Comments Appointment Request 02/19/2023 Encounter Details Date Type Department Care Team (Late st Contact Info) Description 02/19/2023 Telephone [facility] MEDICINE [address] [place], [place] [phone] Neyda Chacko MD [address] [place], [place] [phone] Appointment Request Social History Tobacco Use Types [...] daughter requesting to reschedule appt for 02/19 [employer] CDTM HTN *IP* documented in this encounter Plan of Treatment Upcoming Encounters Date Type Department Care Team (Late st Contact Info) Description 03/09/2025 1:30 PM EST Medication Management [facility] MEDICINE [address] [place] [address] Rj Ellsworth, PharmD [address] [place] [address] documented as of this encounter Visit Diagnoses Not on filedocumented in this encounter Additional Health Concerns Assessment Noted Time PHQ-9 Depression Total Score: 5 03/12/19 23 10:44 AM EST documented as of this encounter Care Teams Articulation Officer Relationship Specialty Start Date End Date Neyda Chacko MD [address] [place] [address] PCP - General Family Medicine 02/22/18 Rj Ellsworth, PharmD [address] [place] [address] Pharmacist Pharmacy 11/20/24 documented as of this encounter
--- OUTSIDE RECORDS SUMMARY | 2025-02-09 12:50 | XMS_ITS | Data Portability ---
Author Organization [employer] [facility] Address [address] [place] [address] Care Team Providers Care Breakfast Manager Name Role Phone HIM CCA OTHER JIRosaroi DARION Primary Care Provider Assessment Encounter Date Assessment Date Assessment LastModified by Organization Details LastModified Time 05/04/2024 05/04/2024 I have reviewed and agree with the assessment and plan as documented by the automatic teller machine servicer. I provided real-time medical direction for this [...] to palpation. Exam otherwise unremarkable per the automatic teller machine servicer Impression: Abscess, draining. No systemic symptoms. Plan: [...] Name and Address Organization Details Recorded Time [id number] [facility] Not available Not available Not available 05/04/2024 24580 RxNorm Not Available [facility] - production 14:41:16 [...] t Available Vitals Date Recorded Oxygen saturation Body temperature Heart rate Respiratory rate Systolic And Diastolic Provider Name and Address Organization Details Last Updated DateTime 5 96 % 98.6 [degF] 74 /min 16 /min 118/76 mm[Hg] Not Available [facility] 5 19:28:17 Social History None [...] ICD10 Code Diagnosis IMO Codes Diagnosis Note [id number] Nancy Yousif MD [address] [phone] 05/04/2024 19:28:14 05/04/2024 21:18:24 Abscess of skin and/or subcutaneous tissue 37498941 L02.91 Health Concerns Section Related Observation LastModified by Organization Detai ls LastModified Time None Recorded Concern Status LastModified by Organization Details LastModified Time None Recorded Advance Directives Directive None Recorded Payers Insurance Date Sequence Insurance Name Policy Number Policy Raygoza Covered Member ID Ryagoza Member ID Guarantor Name 05/04/2024 1 [facility] - DOS ON OR AFTER 2022 - DUAL ELIGIBLE - CORRECTION OPTIONS AND ONE CARE (MEDICARE REPLACEMENT/ADV ANTAGE - HMO) Jaimee Guzman [id number] Jaimee Guzman Notes Date Note Type Note [...] PMH Reviewed at 05/04/2024:41 Allergies Reviewed at 05/04/2024 - :41 ................... ................... ................... ................... ................... ................... ................... ........ Patient Registration Clerk Note From Simon Parada: Dispatched to above address for post op infection. On arrival patient 64 y/o F, found sitting on couch, AOX4, airway patent, speaking in full sentences, good color, in no apparent distress. Patient Maori speaking inly, family translating. Patient states on [...] allow for palpation, photo taken and uploaded. [facility] contacted, spoke with Dr. Yousif, advised of patient complaints and exam findings. [facility] recommends home monitoring, follow up if no [...] ................... ................... ................... ................... ................... ................... ........ [facility] Consulted: Nancy Yousif ................... ................... ................... ................... ................... ................... ................... ........ Disposition: Fulfilled Nancy Yousif MD [address] [place] [address],[address], [place], [address], [email or web address] 05/04/2024 20:25:13 OBGyn Episode No OBEpisode recorded.
--- OUTSIDE RECORDS SUMMARY | 2025-02-09 12:50 | XMS_ITS | Encounter Summary ---
Author Organization [employer] Address [address] [facility] [address] 7[address] [place] [address] Care Team Providers Care Casing Grader Name Role Phone Neyda Chacko MD Primary Care Provider [phone] Rj Ellsworth PharmD Unavailable [phone] Encounter Details Date Type Department Care Team (Late st Contact Info) Description 07/31/2024 Orders Only [facility] MEDICINE [address] [place], [place] [phone] Neyda Chacko MD [address] [place], [place] [phone] Social History Tobacco Use Types Packs/Day Years [...] 03/09/2025 1:30 PM EST Medication Management [facility] MEDICINE [address] [place] [id number] Rj Ellsworth, PharmD [address] [place] [address] documented as of this encounter Visit Diagnoses Not on filedocumented in this encounter Additional Health Concerns Assessment Noted Time PHQ-9 Depression Total Score: 7 06/15/19 24 10:57 AM EDT documented as of this encounter Care Teams Casing Grader Relationship Specialty Start Date End Date Neyda Chacko MD [address] [place] [address] PCP - General Family Medicine 02/22/18 Rj Ellsworth, PharmD [address] [place] [address] Pharmacist Pharmacy 11/20/24 documented as of this encounter
--- OUTSIDE RECORDS SUMMARY | 2025-02-09 12:50 | XMS_ITS | Encounter Summary ---
Author Organization [employer] Address [address] [facility] [address] [place] [address] Care Team Providers Care Tire Builder Operator Name Role Phone Neyda Chacko MD Primary Care Provider [phone] Rj Ellsworth PharmD Unavailable [phone] Encounter Details Date Type Department Care Team (Late st Contact Info) Description 09/09/2023 Orders Only [facility] MEDICINE [address] [place], [place] [phone] Neyda Chacko MD [address] [place], [place] [phone] Essential hypertension (Primary Dx); Type 2 diabetes mellitus with hyperglycemia, with long-term current use of insulin ([facility]); Dyslipidemia; Weight loss Social History [...] Description 03/09/2025 1:30 PM EST Medication Management [facility] MED[facility]INE [address] [place] [address] Rj Ellsworth, PharmD [address] [place] [phone] documented as of this encounter Procedures Procedure Name Priority Date/Time Associated Diagnosis Comments VITAMIN B12/FOLATE, SERUM PANEL Routine 12/15/2023 11:00 AM EDT Type 2 diabetes mellitus with hyperglycemia, with long-term current use of insulin ([facility]) TSH W/REFLEX TO FT4 Routine 12/15/2023 1 1:00 AM EDT Weight loss LIPID PANEL WITH REFLEX TO DIRECT LDL Routine 12/15/2023 11:00 AM EDT Type 2 diabetes mellitus with hyperglycemia, with long-term current use of insulin ([facility]) Dyslipidemia ALBUMIN, RANDOM URINE W/CREATININE Routine 12/15/2023 11:00 AM EDT Type 2 diabetes mellitus with hyperglycemia, with long-term current use of insulin ([facility]) CBC WITH AUTO DIFFERENTIAL Routine 12/15/2023 11:00 AM EDT Weight loss COMPREHENSIVE METABOLIC PANEL Routine 12/15/2023 11:00 AM EDT Essential hypertension documented in this encounter Results * (ABNORMAL) CBC auto differential (12/15/2023 11:00 AM EDT) White Blood Count 2.5(L) 4.8 - 10.8 X10*3/uL [facility] Red Blood Count 4.42 4.20 - 5.50 X10*6/uL [facility] Hemoglobin 12.7 12.0 - 16.0 g/dl [facility] Hematocrit 38.9 37.0 - 47.0 % [facility] Mean Corpuscular Volume 88.0 80.0 - 98.0 fL [facility] Mean Corpuscular Hemoglobin 28.7 27.0 - 33.0 pg [facility] Mean Corpuscular HGB Conc 32.6 31.0 - 35.0 g/dl [facility] Red Cell Distribution Width 12.0 11.0 - 16.0 % [facility] Platelet Count 180 160 - 400 X10*3/uL [facility] Mean Platelet Volume 9.8 9.4 - 12.3 fL [facility] Neutrophils Percent Auto 36.6(L) 45 - 73 % [facility] Imm Gran Pct Auto 0.4 0.0 - 0.4 % [facility] Lymphocytes Percent Auto 49.8(H) 20 - 40 % [facility] Monocytes Percent Auto 8.8 2 - 11 % [facility] Eosinophils Percent Auto 3.6 0 - 4 % [facility] Basophils Percent Auto 0.8 0 - 2 % [facility] NRBC Pct Auto 0.0 0.0 - 0.2 /100WBC [facility] Neutrophils Absolute Auto 0.9(L) 2.0 - 8.3 x10*3/uL [facility] Imm Gran Abs Auto 0.01 0.00 - 0.03 X10*3/uL [facility] Lymphocytes Absolute Auto 1.3 1.2 - 4.9 X10*3/uL [facility] Monocytes Absolute Auto 0.2 0.1 - 1.2 X10*3/uL [facility] Eosinophils Absolute Auto 0.1 0.0 - 0.4 X10*3/uL [facility] Basophils Absolute Auto 0.0 0.0 - 0.2 X10*3/uL [facility] NRBC Abs Auto 0.000 0.0 - 0.012 X10*3/uL [facility] Blood Venous blood specimen / Unknown 12/15/2023 11:00 AM EDT 12/15/2023 1:24 PM EDT Neyad Chacko MD LAB BLOOD ORDERABLES Edited Resu lt - Final Performing Organization Address City/[facility]/ZIP Co de Phone Number [facility] [address] [place] [phone] * TSH with Reflex to Free T4 (12/15/2023 11:00 AM EDT) TSH reflex Free T4 2.91 0.32 - 4.0 uIU/mL [facility] Blood 12/15/2023 11:0 0 AM EDT 12/15/2023 1:24 PM EDT Neyda Chacko MD LAB BLOOD ORDERABLES Final Resul t Performing Organization Address [facility]/ZIP Co de Phone Number [facility] [address] [place] [phone] * (ABNORMAL) Comprehensive Metabolic Panel (12/15/2023 11:00 AM EDT) Sodium 142 135 - 145 mmol/L [facility] Potassium 4.0 3.3 - 5.1 mmol/L [facility] Chloride 107 96 - 108 mmol/L [facility] Carbon Dioxide 30(H) 22 - 29 mmol/L [facility] Anion Gap 9(L) 12 - 20 [facility] Urea Nitrogen (BUN) 18(H) 9 - 16 mg/dL [facility] Creatinine, Serum 0.68 0.5 - 1.4 mg/dL [facility] Estimated Glomerular Filt Rate >60 [facility] Comment:NOTE: For -Am erican individuals, multiply the result by 1.210.Chronic Kidney Disease: Estimated GFR < 60 mL/min/1.47f7Sswiqx Kidney Disease: Estimated GFR < 15 mL/min/1.73m2 Glucose 161(H) 60 - 115 mg/dL [facility] Calcium 9.5 8.4 - 10.2 mg/dL [facility] Bilirubin, Total 0.2 0.0 - 1.0 mg/dL [facility] Aspartate Amino Transferase 34(H) 5 - 31 U/L [facility] Alanine Aminotransferase 49(H) 0 - 31 U/L [facility] Total Protein 6.9 6.5 - 8.0 g/dL [facility] Albumin Level 3.9 3.5 - 5.0 g/dL [facility] Alkaline Phosphatase 59 39 - 117 U/L [facility] Blood Venous blood specimen / Unknown 12/15/2023 11:00 AM EDT 12/15/2023 1:24 PM EDT us Neyda Chacko MD LAB BLOOD ORDERABLES Final Resul t [facility] [address] [place] [phone] * Albumin, Random Urine W/Creatinine (12/15/2023 11:00 AM EDT) Creatinine, Urine 75.29 mg/dL [facility] Microalbumin Urine 21.0 mg/L [facility] Microalbum Creatinine Ratio Ur 27.8 <30 ug/mg cr [facility] Comment:Albumin/Creatinine R atio Reference Ranges: Normal: < 30 ug/mg creatinine Microalbuminuria: 30 - 300 ug/mg creatinineClinical Albuminuria: > 300 ug/mg creatinine Urine 12/15/2023 11:0 0 AM EDT 12/15/2023 1:12 PM EDT Neyda Chacko MD LAB URINE ORDERABLES Final Resul t Performing Organization Address [facility] Co de Phone Number [facility] [address] [place] [phone] * Lipid Panel with Reflex to Direct LDL (12/15/2023 11:00 AM EDT) Triglycerides 45 <150 mg/dL [facility] Comment:Desirable Triglyceri de: less than 150 mg/dLBorderline High Triglyceride 150-199 mg/dLHigh Triglyceride: 200-499 mg/dLVery High Triglyceride: greater than or equal to 5OO mg/dL Cholesterol 113 <200 mg/dL [facility] Comment:Desirable Cholestero l: less than 200 mg/dLBorderline High Cholesterol: 200-239 mg/dLHigh Cholesterol: greater than 239 mg/dL LDL Cholesterol Calculated 51 <100 mg/dL [facility] Comment:Desirable LDL: less than 100 mg/dLNear Optimal/Above Optimal LDL: 110- 129 mg/dLBorderline High LDL: 130-159 mg/dLHigh LDL: 160-189 mg/dLVery High LDL: greater than or equal to 190 mg/dL HDL Cholesterol 53 >40 mg/dL [facility] Comment:Desirable HDL: great er than 40 mg/dL Note: This HDL assay may give artificially low results in patients with liver disease. Blood 12/15/2023 11:0 0 AM EDT 12/15/2023 1:24 PM EDT Neyda Chacko MD LAB BLOOD ORDERABLES Final Resul t Performing Organization Address [facility]/ZIP Co de Phone Number [facility] [address] [place] [phone] * Vitamin B12 (Cobalamin) and Folate Panel, Serum (12/15/2023 11:00 AM EDT) Vitamin B12 402 200 - 900 pg/mL [facility] Comment:NORMAL 200-900 PG/ML INDETERMINATE 160-199 PG/ML DEFICIENT < 160 PG/ML Folate 12.9 > or = 4.0 ng/mL [facility] Comment:Reference Values:> o r = 4.0 ng/mL< 4.0 ng/mL suggests folate deficiency Methotrexate, aminopterin and folinic acid(leucovorin) are chemotherapeutic agents whose molecularstructures are similar to folate; therefore, the Architectfolate assay cannot be used for patients using these drugs. Blood 12/15/2023 11:0 0 AM EDT 12/15/2023 1:24 PM EDT Neyda Chacko MD LAB BLOOD ORDERABLES Final Resul t [facility] [address] [place] [phone] documented in this encounter Visit Diagnoses [...] documented as of this encounter Care Teams Tire Builder Operator Relationship Specialty Start Date End Date Neyda Chacko MD [address] [place] [address] PCP - General Family Medicine 02/22/18 Rj Ellsworth, LiyahD [address] [place] [address] Pharmacist Pharmacy 11/20/24 documented as of this encounter
--- OUTSIDE RECORDS SUMMARY | 2025-02-09 12:50 | XMS_ITS | Encounter Summary ---
Author Organization [employer] Address [address] [facility] 7[address] [place] [address] Care Team Providers Care Network Program Manager Name Role Phone Neyda Chacko MD Primary Care Provider [phone] Rj Ellsworth PharmD Unavailable [phone] Reason for Visit * Reason Onset Date Comments Med Refill 09/03/2022 Encounter Details Date Type Department Care Team (Late st Contact Info) Description 09/03/2022 Telephone [facility] MEDICINE [address] [place], [place] [phone] Neyda Chacko MD [address] [place], [place] [phone] Med Refill Social History Tobacco Use Types [...] Management [facility] MEDICINE [address] [place] [address] Rj Ellsworth, PharmD [address] [place] [address] documented as of this encounter Visit Diagnoses Not on filedocumented in this encounter Additional Health Concerns Assessment Noted Time PHQ-9 Depression Total Score: 5 03/12/19 23 10:44 AM EST documented as of this encounter Care Teams Network Program Manager Relationship Specialty Start Date End Date Neyda Chacko MD [address] [place] [phone] PCP - General Family Medicine 02/22/18 Rj Ellsworth, PharmD [address] [place] [phone] Pharmacist Pharmacy 11/20/24 documented as of this encounter
--- OUTSIDE RECORDS SUMMARY | 2025-02-09 12:50 | XMS_ITS | Clinical Summary ---
Author Organization [employer] Address [address] [facility] 7t [place] [address] Care Team Providers Care Pipe Fitter Marine Name Role Phone Neyda Chacko MD Primary Care Provider [phone] Rj Ellsworth PharmD Unavailable [phone] Allergies Active Allergy Reactions Criticality Noted Date Comments Pioglitazone 03/14/2010 Other reaction(s): unspecified Medications Blood Glucose Monitoring Suppl (groopify [place] Lite) w/Device kit USE DIRECTED Active busPIRone [...] blood pressure daily as directed 1 kit 024 Active Pentips 32G X 4 MM misc USE ONCE DAILY 100 each 6 024 Active Aspirin Low Dose 81 MG [...] (HCC) USE DIRECTED TO TEST BLOOD SUGAR FOR 5 DAYS 100 strip 025 Active TRUEplus Lancets 33G miscIndications :Type 2 diabetes mellitus with hyperglycemia, with long-term current use of insulin (HCC) USE DIRECTED TO TEST BLOOD SUGAR FIVE TIMES DAILY 100 each 025 Active lidocaine (Lidoderm) 5 % patchIndication [...] SUBCUTANEOUSLY BEFORE MEALS. 10 mL 025 Active cilostazol (Pletal) 50 MG tabletIndicatio ns:Peripheral arterial occlusive disease TAKE 1 TABLET BY MOUTH TWICE DAILY IN THE MORNING AND IN THE EVENING 30 MINUTES BEFORE OR 2 HOURS AFTER BREAKFAST AND DINNER 60 tablet 5 025 Active Continuous Glucose Sensor (Dexcom G7 Sensor) miscIndications :Type 2 diabetes mellitus with hyperglycemia, with long-term current use of insulin (HCC) 1 each every 10 (ten) days. 9 each 3 Active metFORMIN XR (Glucophage-XR) 500 MG 24 hr tablet TAKE 2 TABLETS BY MOUTH TWICE DAILY IN THE MORNING AND EVENING 360 tablet 3 Active metoprolol tartrate (Lopressor) 50 MG tabletIndicatio ns:Primary hypertension TAKE 1 TABLET BY MOUTH TWICE DAILY IN THE MORNING AND IN THE EVENING WITH MEALS 180 tablet 3 025 Active rosuvastatin (Crestor) 40 MG tabletIndicatio ns:Dyslipidemia TAKE 1 TABLET BY MOUTH AT BEDTIME 90 tablet 3 025 Active Tresiba FlexTouch 200 UNIT/ML injection Administer 70 units subcutaneously daily 3 mL 11 01/24/20 25 11:32 AM EST Active D3 Super Strength 50 MCG (1999 UT) capsuleIndicati ons:Vitamin D deficiency TAKE 1 CAPSULE BY MOUTH EVERY MORNING 90 capsule 3 Active Ozempic, 2 MG/DOSE, 8 MG/3ML solution pen-injectorInd ications:Type 2 diabetes mellitus with hyperglycemia, with long-term current use of insulin ([facility]) Inject 2 MG SUBCUTANEOUSLY EVERY 7 DAYS IN THE ABDOMEN, THIGHS OR UPPER ARM. ROTATE INJECTION SITES. 3 mL 1 01/24/20 25 11:32 AM EST 025 Active traMADol (Ultram) 50 MG tabletIndicatio ns:Chronic right shoulder pain Take 1 tablet (50 mg) by mouth if needed at bedtime for severe pain. 30 tablet 025 Active Jardiance 25 MGIndications:T ype 2 diabetes mellitus with hyperglycemia, with long-term current use of insulin (HCC) TAKE 1 TABLET BY MOUTH EVERY MORNING 30 tablet 1 025 Active traMADol (Ultram) 50 MG tabletIndicatio ns:Chronic right shoulder pain Take 1 tablet (50 mg) by mouth if needed at bedtime for severe pain. 30 tablet 025 2024 Discontinued(R eorder (will not trigger notification to Pharmacy)) Jardiance 25 MGIndications:T ype 2 diabetes mellitus with hyperglycemia, with long-term current use of insulin (HCC) TAKE 1 TABLET BY MOUTH EVERY MORNING 30 tablet 1 11/16/2 025 2024 Discontinued Active Problems Problem Noted [...] disease. - FIB4 index 1.51 - GI: [facility] - continue working on lifestyle modifications - continue surveillance study Assessment & Plan (04/04/2024 11:43 AM EST): - Last liver test: Nov 2023 - Last US / elastography - FIB4 index 1.51 - GI: [facility] - continue working on lifestyle [...] -on GLP-1 agonist for DM -followed by [facility] GI, last seen in June 2023 -continue metoclopramide 10 mg tid, with caution due to its side effect Assessment & Plan (09/20/2023 12:04 PM EDT): -on GLP-1 agonist for DM -followed by [facility] GI, last seen in June 2023 -continue metoclopramide 10 mg tid, with caution due to its side effect Assessment & Plan (05/24/2022 3:57 PM EDT): -on GLP-1 agonist for DM -seen by GI on 03/19/22, restarted on metoclopramide -continue metoclopramide 10 mg tid Peripheral arterial occlusive disease 08/13/2016 Assessment & Plan (04/04/2024 11:42 AM EST): -Followed by [facility] provider -most recent PAWAN doppler on 08/13/21, moderate stenosis in b/l SFA and popliteal arteries -continue working on risk factor management -pt has been on cilostazol since 2017 - Ordered VASC US Lower Extremity Venous Insufficiency Bilateral - Ordered Vascular US lower extremity arterial duplex bilateral with VEENA Assessment & Plan (06/15/2023 11:00 AM EDT): -Followed by [facility] provider -most recent PAWAN doppler on 08/13/21, moderate stenosis in b/l SFA and popliteal arteries -continue working on risk factor management -pt has been on cilostazol since 2017 Assessment & Plan (10/19/2022 6:00 AM EDT): -Followed by [facility] provider -most recent PAWAN doppler on 08/13/21, moderate stenosis in b/l SFA and popliteal arteries -continue working on risk factor management -pt has been on cilostazol since 2017 Assessment & Plan (05/24/2022 3:54 PM EDT): -Followed by [facility] provider -most recent PAWAN doppler on 08/13/21, moderate stenosis in b/l SFA and popliteal arteries -continue working on risk factor management -pt has been on cilostazol since 2016 Assessment & Plan (03/15/2022 5:49 PM EST): -Followed by [facility] provider -most recent PAWAN doppler on 08/13/21, moderate stenosis in b/l SFA and popliteal arteries -continue working on risk factor management -pt has been on cilostazol since 2017 Hemorrhoids 07/01/2015 Chronic recurrent major depressive disorder 02/23 Assessment & Plan (06/15/2023 11:01 AM EDT): [facility] provider: Olayinka Joiner Current medications: venlafaxine; buspirone; hydroxyzine Continue following recommendation by S providers Patient lost her in Jan 2020 due to COVID and has been grieving. Patient is currently with her family and seems to have good support. Continue current S. Assessment & Plan (10/19/2022 6:03 AM EDT): [facility] provider: Olayinka Cortez Counseling Current medications: venlafaxine; buspirone; hydroxyzine Continue following recommendation by S providers Patient lost her in Jan 2020 due to COVID and has been grieving. Patient is currently with her family and seems to have good support. Continue current S. Assessment & Plan (05/24/2022 4:01 PM EDT): S provider: Olayinka Cortez Counseling Current medications: venlafaxine; buspirone; hydroxyzine Continue following recommendation by S providers Patient lost her in Jan 2020 due to COVID and has been grieving. Patient is currently with her family and seems to have good support. Continue current S. Assessment & Plan (03/15/2022 5:50 PM EST): [facility] provider: Olayinka Cortez Counseling Current medications: [...] 2023. 2nd measurement was 110/70 -Followed by [facility], last seen on 09/30/2023, annual exam -Continue [...] <130/80 per ACC/AHA -BP slightly low. Her pancake professional has suggested to taper down her diuretics [...] per ACC/AHA -BP within acceptable range. Her pancake professional has suggested to taper down her diuretics [...] per ACC/AHA -BP within acceptable range. Her pancake professional has suggested to taper down her diuretics [...] per ACC/AHA -BP within acceptable range. 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 -Followed by [facility], last seen on 12/10/21 -Continue current lifestyle [...] on 7.7% on 03/30/24 -Previously following with [facility] endocrinology, discharged in May 2023 due to stability -Continue Tresiba 70 units qAM (discrepancy from label tacker's note) -Continue Humalog 10 units before breakfast, [...] from 7.9% on 12/21/23 -Previously following with [facility] endocrinology, discharged in May 2023 due to stability -Continue Tresiba 70 units qAM (discrepancy from label tacker's note) -Continue Humalog 10 units before breakfast, [...] -A1C 7.9% on 12/21/23 -Previously following with [facility] endocrinology, discharged in May 2023 due to stability -Continue Tresiba 70 units qAM (discrepancy from label tacker's note) -Continue Humalog 10 units before breakfast, [...] 7.2% on 06/15/23, improving -Previously following with [facility] endocrinology, discharged in May 2023 due to stability -Continue Tresiba 70 units qAM (discrepancy from label tacker's note) -Continue Humalog 10 units before breakfast, [...] PM EDT): -A1C 7.2% on 06/15/23, improving -Tube Blower: [facility], last seen on Sep 2022 -Continue Tresiba 70 units qAM (discrepancy from label tacker's note) -Continue Humalog 10 units before breakfast, [...] yet with hypoglycemia. 8.6% in Feb 2022 -Tube Blower: [facility], last seen on Sep 2022 -Continue Tresiba 70 units qAM (discrepancy from label tacker's note) -Continue Humalog 10 units before breakfast, [...] PM EDT): -A1C 8.6% today 03/11/22, improving -Tube Blower: [facility], last seen on 02/13/22 -Continue Tresiba 70 units qAM (discrepancy from label tacker's note) -Continue Humalog 8 units before breakfast, [...] PM EST): -A1C 8.6% today 03/11/22, improving -Tube Blower: [facility], last seen on 02/13/22 -Continue Tresiba 70 units qAM (discrepancy from label tacker's note) -Continue Humalog 8 units before breakfast, [...] Encounters Date Type Department Care Team Description 02/02/2025 Refill [facility] [address] [place] [phone] Kulwant Coffey MD Type 2 diabetes mellitus with hyperglycemia, with long-term current use of insulin ([facility]) 01/31/2025 Telephone [facility] [address] [place] [address] Neyda Chacko MD Prior Authorization (PA: Tramadol) 01/15/2025 Refill [facility] [address] [place] [address] Angle Eason, bathhouse attendant right shoulder pain 01/09/2025 Refill [facility] [address] [place] [address] Neyda Chacko MD Vitamin D deficiency; Type 2 diabetes mellitus with hyperglycemia, with long-term current use of insulin ([facility]) 01/01/2025 Refill [facility] [address] [place] [address] Neyda Chacko MD 12/08/2024 Telephone [facility] [address] [place] [phone] Neyda Chacko MD Chart prep 12/07/2024 Refill [facility] [address] [place] [address] Neyda Chacko MD Primary hypertension; Dyslipidemia 11/20/2024 Travel 11/16/2024 Refill [facility] [address] [place], [place] [phone] Neyda Chacko MD Type 2 diabetes mellitus with hyperglycemia, with long-term current use of insulin ([facility]) 11/14/2024 Telephone [facility] [address] [place], [place] [phone] Neyda Chacko MD 11/10/2024 Refill [facility] [address] [place], [place] [phone] Neyda Chacko MD Peripheral arterial occlusive disease ([facility]) from Last 3 Months Immunizations Immunization Administration [...] Description 03/09/2025 1:30 PM EST Medication Management [facility] [address] [place] [address] Rj Ellsworth, PharmD [address] [place], [place] [phone] Health Maintenance Due Date Last Done Comments [...] on patient's age to complete this topic Goals Goal Patient Goal Type Associated Problems Recent Progress Patient-Stated? Author Help patients manage their type 2 diabetes Care Plan Help patients manage their type 2 diabetes No Angle Eason RN Weekly blood pressure task Care Plan Weekly blood pressure task No Angle Eason RN Help patients manage their type 2 diabetes Care Plan Help patients manage their type 2 diabetes No Angle Eason RN Patient has chronic kidney disease Care Plan Patient has chronic kidney disease No Angle Eason RN Weekly blood pressure task Care Plan Weekly blood pressure task No Angle Eason RN Patient has chronic kidney disease Care Plan Patient has chronic kidney disease No Angle Eason RN Weekly blood pressure task Care Plan Weekly blood pressure task No Raissa Chaudhry Weekly blood pressure task Care Plan Weekly blood pressure task No Raissa Chaudhry Patient has chronic kidney disease Care Plan Patient has chronic kidney disease No Raissa Chaudhry Patient has chronic kidney disease Care Plan Patient has chronic kidney disease No Raissa Chaudhry Procedures Procedure Name Priority Date/Time Associated Diagnosis Comments POCT GLYCOSYLATED HEMOGLOBIN (HGB A1C) Routine 08/29/2024 10:39 AM EDT Type 2 diabetes mellitus with hyperglycemia, with long-term current use of insulin ([facility]) BI MAMMOGRAM DIAGNOSTIC TOMOSYNTHESIS BILATERAL Routine 03/15/2024 11:15 AM EST Breast pain, right ALBUMIN, RANDOM URINE W/CREATININE Routine 12/15/2023 11:00 AM EDT Type 2 diabetes mellitus with hyperglycemia, with long-term current use of insulin ([facility]) LIPID PANEL WITH REFLEX TO DIRECT LDL Routine 12/15/2023 11:00 AM EDT Type 2 diabetes mellitus with hyperglycemia, with long-term current use of insulin ([facility]) Dyslipidemia DIABETES EYE EXAM Routine [...] Media Lot # [id number] Lot# Expiration Date Blood Capillary blood specimen / Unknown 08/29/2024 10:39 AM EDT Neyda Chacko MD POINT OF CARE TEST ENTER/EDIT OR DERABLES Final Result * BI Mammogram Diagnostic Tomosynthesis Bilateral (03/15/2024 11:15 AM EST) Anatomical Region Laterality Modality Breast Bilateral Mammography 03/15/2024 11:1 5 AM EST Narrative 03/15/2024 12:29 PM EST [facility] [address] [place] [address] Mammography Report Signed Patient: Jaimee Guzman I MR#: [id number] 2030 : 1960 Acct:[id number] Age/Sex: 63 / F ADM Date: 03/15/24 Loc: HO.MAMMO Attending Dr: Neyda Chacko MD Ordering Physician: Neyda Chacko MD Results: 4Suspicio us Finding Date of Service: 03/15/24 Follow Up: Biopsy Recommend ed Procedure(s): MM tomosynthesis diagnostic BI Accession Number(s): [id number] cc: Neyda Chacko MD EXAMINATION: MM DIAGNOSTIC [...] by: Nereyda Carvajal DO 03/15/2024 12:26 PM [facility] Dictated By: Nereyda Carvajal DO Signed By: <Electronically signed by Nereyda Carvajal DO in OV> 03/15/24 1226 DD/ 1115 TD/TT: 03/15/24 1140 Lead Ramp Service Man: Procedure Note Donotuseinterpreter, Image - 03/15/2024 [facility] [address] [place], [place] [address] Mammography Report Signed Patient: Jaimee Guzman [facility]#: [id number] 2030 : 9Acct:[id number] Age/Sex: 63 / FADM Date: 03/15/24 Loc: NATHALY Attending Dr: Neyda Chacko MD Ordering Physician: Neyda Chacko MDResults: 4Suspicio us Finding Date of Service: 03/15/24Follow Up: Biopsy Recommend ed Procedure(s): MM tomosynthesis diagnostic BI Accession Number(s): [id number] cc: Neyda Chacko MD EXAMINATION: MM DIAGNOSTIC [...] by: Nereyda Carvajal DO 03/15/2024 12:26 PM [facility] Dictated By: Nereyda Carvajal DO Signed By: <Electronically signed by Nereyda Carvajal DO in OV> 03/15/24 1226 DD/ 1115 TD/TT: 03/15/24 1140 Lead Ramp Service Man: us Neyda Chacko MD IMG BI PROCEDURES Final Result * Lipid Panel with Reflex to Direct LDL (12/15/2023 11:00 AM EDT) Triglycerides 45 <150 mg/dL [facility] Comment:Desirable Triglyceri de: less than [...] 190 mg/dL HDL Cholesterol 53 >40 mg/dL [facility] Comment:Desirable HDL: great er than 40 mg/dL Note: This HDL assay may give artificially low results in patients with liver disease. Blood 12/15/2023 11:0 0 AM EDT 12/15/2023 1:24 PM EDT Neyda Chacko MD LAB BLOOD ORDERABLES Final Resul t Performing Organization Address City/[facility]/ZIP Co de Phone Number [facility] [address] [place] [phone] * Albumin, Random Urine W/Creatinine (12/15/2023 11:00 AM EDT) Creatinine, Urine 75.29 mg/dL [facility] Microalbumin Urine 21.0 mg/L [facility] Microalbum Creatinine Ratio Ur 27.8 <30 ug/mg cr [facility] Comment:Albumin/Creatinine R atio Reference Ranges: Normal: < 30 ug/mg creatinine Microalbuminuria: 30 - 300 ug/mg creatinineClinical Albuminuria: > 300 ug/mg creatinine Urine 12/15/2023 11:0 0 AM EDT 12/15/2023 1:12 PM EDT Neyda Chacko MD LAB URINE ORDERABLES Final Resul t Performing Organization Address City[facility]/ZIP Co de Phone Number [facility] [address] [place] [phone] * Diabetes Eye Exam (12/25/2022) Eye Exam Normal Normal Historical Provider MD HEALTH MAINTENANCE Final Result * Hm Colonoscopy (08/15/2020) Colonoscopy Normal Normal Historical Provider MD HEALTH MAINTENANCE Final Result * HPV E6/E7 RFLX LINDSAY 16 18/45 (12/27/2019 1:40 PM EST) HPV mRNA E6/E7 rflx Not Detected Not Detected [facility] Comment: This test was performed using the APTIMA HPV Assay ([employer] This assay detects E6/E7 viral messenger RNA (mRNA) from 14 high-risk HPV types (16,18,31,33,35,39,45,51,52,56,58,59,66,68). The analytical performance characteristics of this assay have been determined by [employer]. The modifications have not been cleared or approved by the FDA. This assay has been validated pursuant to the CLIA regulations and is used for clinical purposes. THIS TEST WAS PERFORMED AT: [employer] [address] [facility] [address],[place] [address] RENE MULLINS MD 12/27/2019 1:40 PM EST Ry Curtis MD HISTORICAL/NON ORDERABLE LABS Fi nal Result [facility] [address] from Last 3 Months or Most Recently Relevant to Health Maintenance Additional Health Concerns Active Problems Noted Date Diagnosed Date Help patients manage their type 2 diabetes 01/15 Weekly blood pressure task 01/15/2025 Help patients manage their type 2 diabetes 01/15 Patient has chronic kidney disease 01/15/2025 Weekly blood pressure task 01/15/2025 Patient has chronic kidney disease 01/15/2025 Weekly blood pressure task 01/31/2025 Weekly blood pressure task 01/31/2025 Patient has chronic kidney disease 01/31/2025 Patient has chronic kidney disease 01/31/2025 Insurance [address] [place] [address] [facility] USP OPTIONS (HMO D-SNP) [address] [place] [id number] [place] [phone] [address] [place] [address] [address] [place] [address] Care Teams Pipe Fitter Marine Relationship Specialty Start Date End Date Neyda Chacko MD [address] [place] [address] [phone] PCP - General Family Medicine 02/22/18 Rj Ellsworth, PharmD [address] [place] [address] [place] [phone] Pharmacist Pharmacy 11/20/24
--- OUTSIDE RECORDS SUMMARY | 2025-02-09 12:50 | XMS_ITS | Encounter Summary ---
Author Organization [employer] Address [address] [facility] [address] [place] [address] Care Team Providers Care Batch Freezer Operator Name Role Phone Neyda Chacko MD Primary Care Provider [phone] Rj Ellsworth PharmD Unavailable Encounter Details Date Type Department Care Team (Late st Contact Info) Description 11/14/2024 Telephone [facility] [address] [place], [place] [phone] Neyda Chacko MD [address] [place], [place] [phone] Social History Tobacco Use Types Packs/Day Years [...] the past 12 months, has t he [employer] gas, oil or water company threatened to [...] Description 03/09/2025 1:30 PM EST Medication Management [facility] [address] [place] [address] Rj Ellsworth, LiyahD [address] [place] [address] documented as of this encounter Visit Diagnoses Not on filedocumented in this encounter Additional Health Concerns Assessment Noted Time PHQ-9 Depression Total Score: 8 08/30/19 25 10:35 AM EDT documented as of this encounter Care Teams Batch Freezer Operator Relationship Specialty Start Date End Date Neyda Chacko MD [address] [place] [address] [phone] PCP - General Family Medicine 02/22/18 Rj Ellsworth, PharmD [address] [place] [address] [phone] Pharmacist Pharmacy 11/20/24 documented as of this encounter
--- OUTSIDE RECORDS SUMMARY | 2025-02-09 12:50 | XMS_ITS | Encounter Summary ---
Author Organization [employer] Address [address] [facility] 7t [place] [address] Care Team Providers Care Farm Equipment Mechanic Apprentice Name Role Phone Neyda Chacko MD Primary Care Provider [phone] Rj Ellsworth PharmD Unavailable [phone] Encounter Details Date Type Department Care Team (Late st Contact Info) Description 11/02/2023 Orders Only [facility] [address] [place], [place] [phone] Neyda Chacko MD [address] [place], [place] [phone] Type 2 diabetes mellitus with hyperglycemia, with long-term current use of insulin ([facility]) Social History Tobacco Use Types [...] Description 03/09/2025 1:30 PM EST Medication Management [facility] [address] [place] [phone] Rj Ellsworth, PharmD [address] [place] [phone] documented as of this encounter Visit Diagnoses Diagnosis Type 2 diabetes mellitus with hyperglycemia, with long-term current use of insulin (HCC) documented in this encounter Additional Health Concerns Assessment Noted Time PHQ-9 Depression Total Score: 7 06/15/19 24 10:57 AM EDT documented as of this encounter Care Teams Farm Equipment Mechanic Apprentice Relationship Specialty Start Date End Date Neyda Chacko MD [address] [place] [phone] PCP - General Family Medicine 02/22/18 Rj Ellsworth, PharmD [address] [place] [phone] Pharmacist Pharmacy 11/20/24 documented as of this encounter
--- OUTSIDE RECORDS SUMMARY | 2025-02-09 12:50 | XMS_ITS | Encounter Summary ---
Author Organization [employer] Address [address] [facility] [address] [place] [address] Care Team Providers Care Core Placer Name Role Phone Neyda Chacko MD Primary Care Provider Rj Ellsworth PharmD Unavailable [phone] Encounter Details Date Type Department Care Team (Late st Contact Info) Description 07/28/2024 Orders Only [facility] [address] [place], [place] [phone] Neyda Chacko MD [address] [place], [place] [phone] Social History Tobacco Use Types Packs/Day Years [...] Description 03/09/2025 1:30 PM EST Medication Management [facility] [address] [place] [phone] Rj Ellsworth, PharmD [address] [place] [phone] documented as of this encounter Visit Diagnoses Not on filedocumented in this encounter Additional Health Concerns Assessment Noted Time PHQ-9 Depression Total Score: 7 06/15/19 24 10:57 AM EDT documented as of this encounter Care Teams Core Placer Relationship Specialty Start Date End Date Neyda Chacko MD [address] [place] [phone] PCP - General Family Medicine 02/22/18 Rj Ellsworth, PharmD [address] [place] [phone] Pharmacist Pharmacy 11/20/24 documented as of this encounter
--- OUTSIDE RECORDS SUMMARY | 2025-02-09 12:50 | XMS_ITS | Encounter Summary ---
Author Organization [employer] Address [address] [facility] [address] [place] [address] Care Team Providers Care Ordinary Seaman Name Role Phone Neyda Chacko MD Primary Care Provider [phone] Rj Ellsworth PharmD Unavailable [phone] Encounter Details Date Type Department Care Team ([facility] Contact Info) Description 03/10/2022 Telephone [facility] MEDICINE [address] [place] [address] [phone] Neyda Chacko MD [address] [place] [address] [phone] Social History Tobacco Use Types Packs/Day Years [...] Department Care Team (Late Contact Info) Description 03/09/2025 1:30 PM EST Medication Management [facility] [address] [place] [address] [place] [address] Rj Ellsworth, PharmD [address] [place] [address] documented as of this encounter Visit Diagnoses Not on filedocumented in this encounter Care Teams Ordinary Seaman Relationship Specialty Start Date End Date Neyda Chacko MD [address] [place] [id number] PCP - General Family Medicine 02/22/18 Rj Ellsworth, PharmD [address] [place] [phone] Pharmacist Pharmacy 11/20/24 documented as of this encounter
--- OUTSIDE RECORDS SUMMARY | 2025-02-09 12:50 | XMS_ITS | Encounter Summary ---
Author Organization [employer] Address [address] [facility] [address] [place] [address] Care Team Providers Care Online Community Manager Name Role Phone Neyda Chacko MD Primary Care Provider Rj Ellsworth PharmD Unavailable [phone] Encounter Details Date Type Department Care Team (Late st Contact Info) Description 03/12/2022 Abstract [facility] MEDICINE [address] [place], [place] [phone] Neyda Chacko MD [address] [place], [place] [phone] Social History Tobacco Use Types Packs/Day Years [...] Management [facility] MEDICINE [address] [place] [address] Rj Ellsworth, PharmD [address] [place] [address] documented as of this encounter Visit Diagnoses Not on filedocumented in this encounter Additional Health Concerns Assessment Noted Time PHQ-9 Depression Total Score: 5 03/12/19 23 10:44 AM EST documented as of this encounter Care Teams Online Community Manager Relationship Specialty Start Date End Date Neyda Chacko MD [address] [place] [phone] PCP - General Family Medicine 02/22/18 Rj Ellsworth, PharmD [address] [place] [phone] Pharmacist Pharmacy 11/20/24 documented as of this encounter
--- OUTSIDE RECORDS SUMMARY | 2025-02-09 12:50 | XMS_ITS | Encounter Summary ---
Author Organization [employer] Address [address] [facility] 7t [place] [address] Care Team Providers Care Fiber Machine Tender Name Role Phone Neyda Chacko MD Primary Care Provider [phone] Rj Ellsworth PharmD Unavailable [phone] Encounter Details Date Type Department Care Team (Late st Contact Info) Description 01/26/2023 Orders Only [facility] MEDICINE [address] [place], [place] [phone] Neyda Chacko MD [address] [place], [place] [phone] Social History Tobacco Use Types Packs/Day Years [...] Description 03/09/2025 1:30 PM EST Medication Management [facility] MEDICINE [address] [place] [address] Rj Ellsworth, PharmD [address] [place] [address] documented as of this encounter Visit Diagnoses Not on filedocumented in this encounter Additional Health Concerns Assessment Noted Time PHQ-9 Depression Total Score: 5 03/12/19 23 10:44 AM EST documented as of this encounter Care Teams Fiber Machine Tender Relationship Specialty Start Date End Date Neyda Chacko MD [address] [place] [phone] PCP - General Family Medicine 02/22/18 Rj Ellsworth, PharmD [address] [place] [phone] Pharmacist Pharmacy 11/20/24 documented as of this encounter
--- OUTSIDE RECORDS SUMMARY | 2025-02-09 12:50 | XMS_ITS | Encounter Summary ---
Author Organization [employer] Address [address] [facility] 7t [place] [address] Care Team Providers Care Director Of Pupil Personnel Program Name Role Phone Neyda Chacko MD Primary Care Provider [phone] Rj Ellsworth PharmD Unavailable Reason for Visit * Reason Onset Date Comments Durable Medical Equipment 01/26/2023 Encounter Details Date Type Department Care Team (Late st Contact Info) Description 01/26/2023 Telephone [facility] MEDICINE [address] [place], [place] [phone] Neyda Chacko MD [address] [place], [place] [phone] Durable Medical Equipment Social History Tobacco Use [...] readings would like the patient to use [employer] System documented in this encounter Plan of Treatment Upcoming Encounters Date Type Department Care Team (Late st Contact Info) Description 03/09/2025 1:30 PM EST Medication Management [facility] MEDICINE [address] [place] [address] Rj Ellsworth, LiyahD [address] [place] [address] documented as of this encounter Visit Diagnoses Not on filedocumented in this encounter Additional Health Concerns Assessment Noted Time PHQ-9 Depression Total Score: 5 03/12/19 23 10:44 AM EST documented as of this encounter Care Teams Director Of Pupil Personnel Program Relationship Specialty Start Date End Date Neyda Chacko MD [address] [place] [id number] PCP - General Family Medicine 02/22/18 Rj Ellsworth, PharmD [address] [place] [address] Pharmacist Pharmacy 11/20/24 documented as of this encounter
== END 2025-02-09 11:24 | disposition home or self-care (01) ==
LOC: HO.HGI 10:56
PROVIDERS: PCP Family Medicine; Visit Provider Nurse Practitioner
DX: K21.9 Gastro-esophageal reflux disease without esophagitis (principal); K31.84 Gastroparesis; K58.2 Mixed irritable bowel syndrome
CPT/HCPCS: 99213

== ENCOUNTER → 2025-02-09 10:56 | Outpatient (BNVA) | payer OTHER, SELFPAY | PROVIDERS: PCP Family Medicine; Visit Provider Nurse Practitioner | DX: K21.9 Gastro-esophageal reflux disease without esophagitis (principal); K31.84 Gastroparesis; K58.2 Mixed irritable bowel syndrome; K29.70 Gastritis, unspecified, without bleeding; R11.2 Nausea with vomiting, unspecified; Z79.899 Other long term (current) drug therapy | CPT/HCPCS: 99212 ==